=== PATIENT | male | born 1960 | race Caucasian/White ===

== ENCOUNTER → 2022-03-25 10:17 | Outpatient (REF) | payer OTHER, SELFPAY ==
--- NOTE | 2022-03-25 10:26 | CA_ITS ---
Acquisition Time: 2022-03-25 11:38:58 Total Exercise Time: 00:20:33 Test Indications: SPECIAL CA SCREENING EXAM FOR L Medications: Protocol: DOBUTAMINE Max HR: 136 BPM 85% of Pred: 159 BPM Max BP: 186/080 mmHG Max Work Load: 1.0 METS Pharmacological stress test with Dobutamine infusion per protocol to max of 40mcg/kg/min, briefly acheivng max heart rate of 83% MPHR, then heart rate dropping back into the mid to upper 70s % MPHR, (Pt made to kick his leg then july throughout infusion) without anginal symptoms, with isolated PACs and PVCs, with normotensive response to infusion, with nondiagnostic EKGs for ischemia due to suboptimal heart rate, without noted ischemic changes at peak heart rate. Echo images obtained by tech at rest, at 20mcg/kg/min and again at 40mcg/kg/ min. Definity contrast used. Heart rate noted to reduce quickly in a laying down position ( for echo images). Baseline EKG SB rate 50. He held carvedilol last evening and this am. Test reviewed with Dr Hollingsworth Referred By: Maxine Victoria Overread By: CELENA HARRIS
== END ==
LOC: HO.CARD 10:17
PROVIDERS: PCP Internal Medicine; Visit Provider Internal Medicine
DX: Z13.6 Encounter for screening for cardiovascular disorders (principal)
CPT/HCPCS: 93351; J1250; Q9957

== ENCOUNTER → 2022-04-10 09:07 | Outpatient (BNVA) | payer OTHER, SELFPAY | PROVIDERS: PCP Internal Medicine; Referring Provider Internal Medicine; Visit Provider Nurse Practitioner | DX: Z01.818 Encounter for other preprocedural examination (principal) | CPT/HCPCS: 99202 ==

== ENCOUNTER 2022-06-20 09:42 | Day surgery (SDC) | payer OTHER, SELFPAY ==
[2022-06-14 13:08] VITALS: BMI 26.7
[2022-06-20 10:17] VITALS: BP 120/51; PULSE 57; RESP 18; TEMP 36.2; O2SAT 98; BMI 26.4
--- NOTE | 2022-06-20 10:19 | P.CONAN_ITS ---
[facility] Active Problems Active Problems: All Active Problems (Updated 04/10/22 @ 09:20 by KRISTOFER Sharma) Pre-op examination (Acute) Thrombocytopenia (Acute) Lumbar degenerative disc disease (Acute) Psoriasis (Acute) Cholelithiasis (Acute) Past Medical History Medical History Alcoholic cirrhosis Aortic stenosis Cardiac murmur Chronic hepatitis C History of alcohol abuse Hypertension Liver cancer Smoker Surgical History Surgical History H/O colonoscopy History of ablation of neoplasm of liver History of appendectomy History of Problems with Anesthesia: No Social History Social History Alcohol intake: former Patient Tobacco Use Status: Current everyday Tobacco user Tobacco use type: Cigarette Cigarettes Per Day: 6 Years Smoked: 20 years Date Education Initiated: 06/20/22 Use of substances other than those prescribed or required for medical reasons: No Are you DNR?: No Advance Directives: No Advance Directives Information Provided: Yes Meds Allergies Allergy/AdvReac Type Severity Reaction Status Date / Time No Known Allergies Allergy Verified 04/10/22 09:13 Home Medications Medication Instructions Recorded Confirmed Last Taken Type carvedilol 6.25 mg tablet 6.25 mg PO BID 04/10/22 06/14/22 06/20/22 History Exam Exam Date and Time: June 20, 2022 1019 Height,Weight and Vital Signs: Height 5 ft 11 in Weight 87.09 kg Airway Mallampati Class: III TM Dist: >3cm Neck ROM: Full Loose/Missing/Broken Teeth: Yes and Upper Heart: RRR Lungs: CTA Assessment and Plan Assessment Anesthesia Assessment: Anesthesia Plan Discussed and Chart Reviewed Final Anesthetic Review History of Problems with Anesthesia: No NPO: Yes ASA Class: III Final Preanesthetic Review: Meds/Allgs Chart Reviewed, Consent Obtained/Reviewed and Anes Risks/Benef Reviewed Patient Risk: Intermediate Procedure Risk: Low Anesthetic Plan Anesthetic Plan: MAC: Disposition: Standard PACU
--- NOTE | 2022-06-20 12:17 | MHC.SHP ---
Pre-Procedural Eval Section A Date of Service: 06/20/22 Section B Chief Complaint: screening Details of Present Illness: 62 y.o M with PMH of HCV cirrhosis s/p SVR, psoriasis, who is here for a screening colo. Of note, states [facility] but has never gotten an EGD Relevant Family History (Specify if Yes): No Relevant Social History: None Present Medications: see Short Stay Collaborative assessment Medical History: Significant History (as above ) Allergies: Allergies Allergy/AdvReac Type Severity Reaction Status Date / Time No Known Allergies Allergy Verified 04/10/22 09:13 Review of Systems Review of Systems Comment: Ten point ROS negative except as above Exam Exam Comment: Gen appear: No acute distress HEENT: no icterus Chest: No overt resp distress Abd: soft, nontender, nondistended Psych: Stable affect, answering questions appropriately Neuro: A/Ox3 noted to move all extremities spontaneously Ext: multiple erythematous plaques on legs and arms Plan Diagnosis/Plan: Unchanged I have reviewed the history and physical and performed a pertinent physical examination on my patient. No changes have occurred unless specified. Time Spent With Patient Time: Total time managing care of this patient today ____ minutes.
--- NOTE | 2022-06-20 12:20 | P.OP_ITS ---
Operative Note Operative Note Date of Service: 06/20/22 Narrative: Procedure: Colonoscopy Indication: Screening Endoscopist: Zaynab Pena MD Anesthesia Provider: Dr Evon Oquendo Anesthesia type: MAC Instrument: Olympus [id number]-[id number] Consent: Indication, risks vs benefits, and alternatives were discussed with the patient who gave written informed consent to proceed. EKG, pulse, pulse oximetry and blood pressure were monitored throughout the procedure. Please see anesthesia flowsheet. Procedure: The patient was brought to the procedure room and placed in the left lateral decubitus position. IV medications were administered by the anesthesia provider in attendance. A digital rectal exam was performed which was normal. The colonoscope was then inserted through the anus and advanced through the colon to the cecum at 75 cm,and terminal ileum. Mucosa was carefully examined under high definition white light as the instrument was slowly withdrawn in a retrograde panoramic fashion. Retroflexion was performed in ascending colon and rectum. The procedure was not difficult. There were no immediate obvious complications. The quality of the prep was BBPS: 3+2+2 = adequate Withdrawal time 16 minutes. Limitations: No limitations. Findings: Mucosa: Normal to cecum and terminal ileum. Protruding lesions: * 1 sessile polyp of size 4 mm in ascending colon. Cold snare polypectomy was performed. The polyp was completely removed and retrieved. * 3 sessile polyp of size 4-7 mm in sigmoid colon. Cold snare polypectomy was performed. The polyps were completely removed and retrieved. * Medium internal hemorrhoids [without] stigmata of recent bleeding. Impression: 1. Normal colon and terminal ileum mucosa 2. Total of 4 polyps removed from ascending and sigmoid colon. 3. Internal hemorrhoids Recommendations: - Follow path results. - Repeat colonoscopy in 3 years if all polyps are adenomas. - Should also get records at office visits to ensure up to date on HCC and variceal screening.
[2022-06-20 12:23] VITALS: BP 87/47; PULSE 61; RESP 20; TEMP 37; O2SAT 98
[2022-06-20 12:28] VITALS: BP 86/47; PULSE 58; RESP 20; O2SAT 98
[2022-06-20 12:33] VITALS: BP 102/55; PULSE 61; RESP 18; O2SAT 98
[2022-06-20 12:48] VITALS: BP 100/61; PULSE 62; RESP 16; O2SAT 97
== END 2022-06-20 13:09 ==
PROVIDERS: PCP Internal Medicine; Visit Provider Internal Medicine
PROC: 0DJD8ZZ Inspection of Lower Intestinal Tract, Via Natural or Artificial Opening Endoscopic (ICD-10-PCS; CPT 45378; principal; 2022-06-20 11:10)
DX: Z12.11 Encounter for screening for malignant neoplasm of colon (principal); K63.5 Polyp of colon; K64.8 Other hemorrhoids; K70.30 Alcoholic cirrhosis of liver without ascites; B18.2 Chronic viral hepatitis C; Z85.05 Personal history of malignant neoplasm of liver; Z90.49 Acquired absence of other specified parts of digestive tract; I10 Essential (primary) hypertension; K80.20 Calculus of gallbladder without cholecystitis without obstruction; F17.210 Nicotine dependence, cigarettes, uncomplicated
CPT/HCPCS: 45385; 88305

== ENCOUNTER → 2022-07-05 10:06 | Outpatient (BNVA) | payer OTHER, SELFPAY | PROVIDERS: PCP Internal Medicine; Referring Provider Internal Medicine; Visit Provider Nurse Practitioner | DX: K63.5 Polyp of colon (principal); Z98.890 Other specified postprocedural states | CPT/HCPCS: 99212 ==

== ENCOUNTER → 2022-10-10 10:08 | Outpatient (REF) | payer OTHER, SELFPAY ==
--- NOTE | 2022-10-10 10:11 | CA_ITS ---
Acquisition Time: 2022-10-10 10:14:00 Total Exercise Time: 00:18:16 Test Indications: Screening for CAD Medications: SEE H CARVEDILOL Protocol: DOBUTAMINE Max HR: 126 BPM 79% of Pred: 159 BPM Max BP: 196/046 mmHG Max Work Load: 1.0 METS Pharmacological stress test with Dobutamine infusion per protocol, to max dose of 40mcg/kg/min briefly achieiving 77% MPHR then back down to 56% quickly in recovery , without anginal symptoms, with isolated PVCs and PACs, with normotensive response to infusion, without EKG changes. Echo images obtained by [employer] at rest and at 20mcg/kg/min and 40mcg/kg.min. Definity contrast used, Carvedilol was held x 3 doses. Test reviewed with Dr. Hollingsworth. Referred By: Tayo Ugalde Overread By: CELENA HARRIS
== END ==
LOC: HO.CARD 10:08
PROVIDERS: PCP Internal Medicine; Visit Provider Internal Medicine Gastroenterology
DX: K74.69 Other cirrhosis of liver (principal); R01.1 Cardiac murmur, unspecified
CPT/HCPCS: 93351; J1250; Q9957

== ENCOUNTER → 2022-10-29 08:21 | Outpatient (REF) | payer OTHER, SELFPAY ==
--- NOTE | ~2022-10-29 | NM_ITS ---
Myocardial perfusion study Indication: CAD to evaluate for myocardial ischemia Technique: The patient was brought in for a Lexiscan perfusion study on 10/29/2022. Patient performed low-level exercise and was injected 0.4 mg of Lexiscan intravenously. Within a minute of injection, 30 mCi of sestamibi was given intravenously. Images were obtained using the SPECT gamma camera interlaced with the gating device. Images were obtained in supine position. Resting perfusion study was performed on 10/30/2022. Patient was administered 30 mCi of sestamibi intravenously at rest. Images were then obtained in supine position. Images obtained with and without CT attenuation. Total DLP 127 mGy-cm. Images were processed with the software and compared side to side in short axis, horizontal long axis and vertical long axis views. Findings: The stress perfusion study showed non attenuated images show mildly reduced uptake in the basal inferior and apical wall of the LV myocardium. Remainder of the LV myocardium is normally perfused. Attenuation corrected images show mildly reduced uptake in the apex of the LV myocardium. The gated study shows normal LV systolic function with calculated LVEF of 63%. LV cavity is mildly dilated size. The gated study shows normal systolic wall thickening and contraction of segments. Resting study shows no change in perfusion pattern compared to stress perfusion study. Gating at rest reveals normal systolic wall motion with ejection fraction at 56%. The findings are consistent with no clear reversible defect suggestive of ischemia. Likely normal myocardial perfusion. NM/NM slava perf SPECT rest & str Impression: 1. Myocardial perfusion imaging study shows likely normal myocardial perfusion 2. Gated LVEF is 63% 3. Transient ischemic dilatation not present EKG is nondiagnostic for ischemia
--- NOTE | 2022-10-29 08:26 | CA_ITS ---
Acquisition Time: 2022-10-29 08:38:44 Total Exercise Time: 00:02:00 Test Indications: PREOP FOR LIVER TRANSPLANT Medications: Protocol: LEXISCAN Max HR: 086 BPM 54% of Pred: 159 BPM Max BP: 142/062 mmHG Max Work Load: 1.6 METS Pharmacological stress test with Lexiscan injection while walking slowly on the treadmill, without anginal symptoms, without arrhythmias, with normotensive response to injection, with nondiagnostic EKGs for ischemia. Nuclear images pending. Test reviewed with Dr. Peres. Referred By: Tayo Ugalde Overread By: CELENA HARRIS
== END ==
LOC: HO.CARD 08:21
PROVIDERS: PCP Internal Medicine; Visit Provider Internal Medicine Gastroenterology
DX: C22.0 Liver cell carcinoma (principal)
CPT/HCPCS: 78452; 93017; A9500; J0280; J2785

== ENCOUNTER → 2023-06-04 09:54 | Outpatient (REF) | payer OTHER, SELFPAY ==
--- NOTE | 2023-06-04 10:12 | CA_ITS ---
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 Normal LV systolic and diastolic function 2. Mildly dilated left atrium 3. Evidence of PFO with agitated saline with at least moderate shunt with Valsalva 4. Possible bicuspid aortic valve with mild aortic stenosis and [id number] aortic regurgitation 5. Normal RV systolic pressure 6. Mildly dilated ascending aorta at 3.7 cm 7. No pericardial effusion Findings Left Ventricle Normal left ventricular size, thickness, and systolic function. The visually estimated ejection fraction is between 60-65%. Spectral Doppler is indicative of an impaired relaxation filling pattern. Peak GLS is -18.3%, within normal limits. Right Ventricle Mildly increased right ventricular cavity size. There is normal right ventricular systolic function. Atria The left atrium is mildly dilated. Contrast study for right to left shunting is mildly positive. Contrast study for right to left shunting is moderately positive with Valsalva maneuver. There is evidence of a patent foramen ovale with left to right shunting. The right atrium is likely dilated. Aortic Valve There is mild aortic valve stenosis. There is mild to moderate aortic valve regurgitation. possible bicuspid aortic valve with moderate thickening and mild calcification Mitral Valve Normal mitral valve structure and function. There is trace mitral valve regurgitation. There is no mitral valve stenosis. Pulmonic Valve The pulmonic valve is likely normal. There is trace pulmonic valve regurgitation. Tricuspid Valve Normal tricuspid valve structure. There is trace tricuspid valve regurgitation. The right ventricular systolic pressure is normal. The right ventricular systolic pressure is 14 mmHg. Normal right atrial pressure. There is no evidence of pulmonary hypertension. Great Vessels The pulmonary artery was not well visualized. There is mild dilatation of the ascending aorta measuring 3.70 cm. Venous The inferior vena cava is normal in size and collapses greater than 50% with inspiration. Pericardium/Pleural There is no evidence of pericardial effusion. Prior Study Comparison No prior study available for comparison. Measurements 2D Linear Measurements IVSd: 1.14 0.6-0.9/0.6-1.0 cm LVIDd: 5.77 3.9-5.3/4.2-5.9 cm LVIDd Index: 2.75 2.4-3.2/2.2-3.1 cm/m2 LVIDs: 3.10 2.0-3.6 cm LVPWd: 0.95 0.7-1.1 cm LA Diam: 4.00 2.7-3.8/3.0-4.0 cm LAIDs Index: 1.90 1.5-2.3 cm/m2 LV Mass: 304.26 67-162/88-224 g LV Mass Index: 144.89 43-95/49-115 g/m2 LVOT Diam: 2.50 3.0+(-)1.3 cm 2D Systolic Function EF 4C: 62.40 >55% EF 2C: 63.60 >55% EF BiP: 63.20 >55% Mitral Valve MV Pk E: 0.91 MV PK A: 0.60 MV Decel Time: 220.00 E/A: 1.50 E'Lateral: 8.38 E'Medial: 5.77 E/E' Med: 15.70 E/E' Lat: 10.80 PHT: 64.00 MVA PHT: 3.44 Decel [place]: 4.13 Aortic Valve AoV Pk Jamel: 3.39 AoV Mn Jamel: 2.39 AoV VTI: 0.72 AoV Pk Grad: 46.00 Aov Mn Grad: 26.00 DESHAWN Cont.VTI: 1.88 AI Pk Jamel: 4.13 AI VTI: 2.27 LVOT LVOT Pk Jamel: 1.11 LVOT Mn Jamel: 0.82 LVOT VTI: 0.28 LVOT Pk Grad: 5.00 LVOT Mn Grad: 3.00 LVOT Diam: 2.50 LVOT Area: 4.91 Diastolic Function MV Pk E: 0.91 MV Pk A: 0.60 E/A: 1.50 E'Medial: 5.77 E/E' Med: 15.70 E' Laterial: 8.38 E/E' Lat: 10.80 Right Ventricle TAPSE (mm): 27.00 TVS' Jamel: 15.10 Tricuspid Valve TR Pk Jamel: 1.68 TR Pk Grad: 11.00 RA Press: 3.00 RVSP: 14.00 Great Vessels Aorta Sinus of Valsalva: 3.91 2.0-3.5 cm Ao Asc: 3.70 2.1-3.4 cm Ao Arch: 3.40 Updated in Other Vendor System with Status of Final Andrey Hollingsworth MD electronically signed on 06/04/2023 1:40:28 PM with status of Final
== END ==
LOC: HO.CARD 09:54
PROVIDERS: PCP Internal Medicine; Visit Provider Internal Medicine Gastroenterology
DX: K74.60 Unspecified cirrhosis of liver (principal)
CPT/HCPCS: 93306; 93356

== ENCOUNTER → 2023-06-04 10:12 | Outpatient (BNV) | payer OTHER, SELFPAY | PROVIDERS: PCP Internal Medicine; Visit Provider Internal Medicine Cardiovascular Disease | DX: I35.2 Nonrheumatic aortic (valve) stenosis with insufficiency (principal) | CPT/HCPCS: 93306 ==

== ENCOUNTER 2023-06-20 14:49 | Emergency (ER) | payer OTHER, SELFPAY ==
--- NOTE | ~2023-06-20 | US_ITS ---
EXAMINATION: US ABDOMEN LIMITED CLINICAL INFORMATION: Right upper quadrant pain. History of liver cancer.. COMPARISON: Ultrasound abdomen 12/24/2012 TECHNIQUE: Real-time imaging of the right upper quadrant abdominal viscera. FINDINGS: PANCREAS: The head and the body a pancreas is heterogeneous in echotexture. The tail is obscured by overlying gas. LIVER: Normal. The liver is normal in size. The liver contour is normal. Parenchymal echogenicity is coarse. There is a echogenic lesion same as hepatic parenchyma echogenicity measuring 3.08 x 3.13 x 3.36 cm in the right hepatic lobe. No additional lesions seen.. There is no intrahepatic biliary duct dilatation seen. GALLBLADDER: There are small echogenic mobile gallstones with acoustic shadowing. Gallbladder wall thickness measures 0.4 cm. No tenderness in the right upper quadrant by ultrasound probe. COMMON BILE DUCT: Normal in caliber measuring 0.4 cm in diameter. RIGHT KIDNEY: Normal. No hydronephrosis. No renal calculi or focal parenchymal lesions. The kidney measures 11.7 cm in maximum dimension. FREE FLUID: None. US/US abdomen limited IMPRESSION: Heterogeneous pancreas but no focal lesion seen. Small right hepatic lobe echogenic lesion. It is new since the previous exam 12/24/2012. Recommend CT liver with and without contrast. Gallstones with mild wall thickening but no pericholecystic fluid collection. There is no tenderness in right upper quadrant by ultrasound probe.
--- NOTE | ~2023-06-20 | CT_ITS ---
EXAMINATION: CT ABDOMEN AND PELVIS WITH CONTRAST CLINICAL INFORMATION: Abdominal pain. COMPARISON: None available. TECHNIQUE: Multidetector volumetric images were obtained from the superior aspect of the liver through the pubic symphysis following administration 85 mL of Omnipaque 350 intravenous contrast. Sagittal and coronal reformatted images were obtained on the technologist's workstation. Oral contrast: No This CT examination was performed using dose optimization techniques as appropriate, variously including the following: *Automated exposure control *Adjustment of mA and/or kV according to patient size (this includes techniques or standardized protocols for targeted exams where dose is matched to indication/reason for exam; i.e. extremities or head) *Use of iterative reconstruction technique DLP: 648 mGy-cm FINDINGS: LUNG BASES: There is right middle lobe atelectasis or scarring. LIVER, GALLBLADDER, AND BILIARY TREE: The liver is relatively small and irregular in contour. There is a heterogeneous area of hypodensity posterior right lobe the liver measuring 6.8 cm. A single 1.3 cm gallstone is noted. PANCREAS: Unremarkable. SPLEEN: The spleen is enlarged measuring up to 19 cm. ADRENAL GLANDS: Unremarkable. KIDNEYS AND URETERS: The kidneys are normal in size, shape, and attenuation. No hydronephrosis, hydroureter, or calculi seen. No perinephric stranding. BLADDER: There is mild urinary bladder wall thickening. GASTROINTESTINAL TRACT: The small and large bowel are unremarkable. The appendix is not seen. ABDOMINAL WALL: There are small umbilical and supraumbilical hernias containing fat. The supraumbilical hernia contains a small portion of small bowel without associated bowel dilatation. LYMPH NODES: Normal. VASCULAR: There is mild atherosclerotic plaque of the abdominal aorta. PELVIC VISCERA: There is a small amount of pelvic ascites OSSEOUS STRUCTURES: There is grade 1 anterolisthesis L5 over S1 with bilateral L5 spondylolysis and moderate L5-S1 disc degenerative change. CT/CT abdomen pelvis w IV con IMPRESSION: 1. Cirrhotic liver with splenomegaly. Heterogeneous area of hypodensity in the posterior right lobe the liver measuring 6.8 cm. This does not have the typical appearance of a benign hepatic lesion and further evaluation with enhanced MRI is recommended. 2. Cholelithiasis without evidence of cholecystitis. 3. Small umbilical and supraumbilical hernias containing fat. The supraumbilical hernia contains a small portion of small bowel without associated bowel dilatation. Fleischner guidelines were followed.
[2023-06-20 14:59] VITALS: BP 124/93; PULSE 86; RESP 18; TEMP 37; O2SAT 98; BMI 29.1
--- NOTE | 2023-06-20 15:00 | ED_ITS ---
HPI - Abdominal Pain General Chief Complaint: Abdominal Pain Stated Complaint: severe stomach pain Time Seen by Provider: 06/20/23 20:53 Source: patient and family Mode of arrival: ambulatory History of Present Illness HPI narrative: 63M with known history of lung ca and hepatic ca and currently on the transplant list. He gets majority of care through [facility]. He has recently gone through TACE procedure on his liver, lung bx, and presents today with lower abdominal discomfort with nausea Related Data Home Medications Medication Instructions Recorded Confirmed carvedilol 6.25 mg tablet 6.25 mg PO BID 04/10/22 06/14/22 Allergies Allergy/AdvReac Type Severity Reaction Status Date / Time No Known Allergies Allergy Verified 06/20/23 15:03 Review of Systems Review of Systems Pertinent positives and negatives as stated in HPI [facility] Past Medical History Medical History (Updated 06/21/23 @ 00:46 by Evon Pruett MD) History of alcohol abuse Liver cancer Smoker Cardiac murmur Aortic stenosis Hypertension Chronic hepatitis C Alcoholic cirrhosis Surgical History (Updated 07/05/22 @ 10:14 by Ford Duarte [facility]) History of appendectomy H/O colonoscopy History of ablation of neoplasm of liver Social History Social History Alcohol intake: former Patient Tobacco Use Status: Current everyday Tobacco user Tobacco use type: Cigarette Cigarettes Per Day: 6 Years Smoked: 20 years Advance Directives: No Advance Directives Information Provided: No Physical Exam ED Vital Signs: Vital Signs - 24 hr 06/20/23 14:59 06/20/23 20:42 06/20/23 23:31 Temperature 98.6 F 98.1 F 98.2 F Pulse Rate 86 74 75 Respiratory Rate 18 18 17 Blood Pressure 124/93 H 138/76 126/63 Pulse Oximetry 98 98 98 Oxygen Delivery Method Room Air Room Air BMI result Body Mass Index 29.1 VITAL SIGNS: Reviewed. GENERAL: Well developed, well nourished, in no acute distress. HEAD: Normocephalic/atraumatic EYES: PERRLA, EOMI, scleral icterus EARS: Ext canals without abnormality NOSE: Nares patent bilateral OROPHARYNX: no oral lesions noted, posterior pharynx clear NECK: Supple, no adenopathy LUNGS: Normal breath sounds. No adventitious sounds or accessory muscle use. SpO2<98> CARDIOVASCULAR: Regular rate and rhythm without noted murmurs ABDOMEN: Soft, non-tender, non-distended with bowel sounds. MUSCULOSKELETAL: No tenderness, deformities, or effusions noted on gross inspection. EXTREMITIES: No cyanosis, clubbing or edema. SKIN: Inspection of the skin reveals patchy psoriasis over extremities, scalp, jaundice NEUROLOGIC: Alert and oriented x 4. Strength and sensation to light touch were grossly intact x 4. Course Course Course Narrative: This is an RME: Additional HPI, ROS, PE not included below will be deferred to primary provider. Patient is a 63-year-old male who presents emergency department for evaluation of Left upper quadrant abdominal pain with onset 3 days ago after eating dinner. Pain has been intermittent. Associated nausea. reports pain is new ant not baseline for him. has Liver CA, awaiting transplant, Receives oncology care at [facility] in [facility], chemo, recent TACE procedure with right femoral artery angio-seal. Plan: Labs, UA, ultrasound Medical Decision Making Medical Decision Making MDM Narrative: 63-year-old male with history and clinical presentation, DDX: cholecystitis, pancreatitis, obstruction, s/p appendectomy. With the time of my examination patient has had complete resolution of his symptoms and his abdominal exam is benign. I reviewed all investigations for which there are no comparison studies available. Hematologic indices demonstrate a leukopenia with a slight thrombocytopenia and a normocytic anemia that I suspect is anemia of chronic disease as patient has no reports of acute bleeding. Chemistry indices do not demonstrate an JAVIER and liver enzymes are consistent with underlying liver CA and when I had asked the patient directly regarding the color of his skin he reports me that the skin color is consistent for him, there is no alkaline phosphatase to suggest a biliary obstruction there is an elevated lipase without clinical findings of pancreatitis and patient continues to be asymptomatic. Urinalysis is negative for UTI or hematuria. Abdominal ultrasound demonstrates a heterogeneous pancreas but no focal lesion and although gallstones with mild wall thickening of the gallbladder there is no pericholecystic fluid and no ultrasound Ceballos's. CT scan consistent with cirrhotic liver and splenomegaly and reports hypodensity in the posterior right lobe of 6.8 cm. There is evidence of cholelithiasis without cholecystitis as reported in the ultrasound. There are nonobstructive umbilical hernias. My interpretation is patient was experiencing abdominal discomfort of unclear etiology, there are no findings to suggest obstruction, cholecystitis, diverticulitis and clinically patient is negative for pancreatitis. I suspect that the abnormal lab work that has been obtained is consistent with his baseline lab work but he is provided with strict return precautions. He is also strongly encouraged to follow-up with his primary care doctor on Friday morning. Differential Diagnosis Differential Diagnoses: The differential diagnosis associated with the presentation includes Please see the discussion above Admission/Observation Consideration of admission/observation: Escalation of care including admission/observation considered Please see the discussion above Lab Data MDM Lab Attestation statement: I reviewed the patient's lab results. Please see the discussion above 06/20/23 15:22 06/20/23 15:22 Labs: Lab Results 06/20/23 06/20/23 Range/Units 15:22 20:49 WBC 4.6 L (4.8-10.8) X10*3/uL RBC 3.73 L (4.60-5.80) X10*6/uL Hgb 10.9 L (14.0-18.0) g/dl Hct 32.8 L (42.0-52.0) % MCV 87.9 (80.0-98.0) fL MCH 29.2 (27.0-33.0) pg MCHC 33.2 (31.0-36.0) g/dl RDW 15.3 (11.0-16.0) % Plt Count 153 L (160-400) X10*3/uL MPV 10.7 (9.4-12.4) fL Immature Gran % (Auto) 0.6 H (0.0-0.4) % Neut % (Auto) 63.2 (45-73) % Lymph % (Auto) 18.1 L (20-40) % Bond % (Auto) 9.9 (2-11) % Eos % (Auto) 7.6 H (0-4) % Baso % (Auto) 0.6 (0-2) % Lymph # (Auto) 0.8 L (1.2-4.9) X10*3/uL Bond # (Auto) 0.5 (0.1-1.2) X10*3/uL Eos # (Auto) 0.4 (0.0-0.4) X10*3/uL Baso # (Auto) 0.0 (0.0-0.2) X10*3/uL Abs Immat Gran (auto) 0.03 (0.00-0.03) X10*3/uL Absolute Neuts (auto) 2.9 (2.0-8.3) x10*3/uL Absolute Nucleated RBC 0.000 (0.0-0.012) X10*3/uL Nucleated RBC % (auto) 0.0 (0.0-0.2) /100WBC Sodium 141 (135-145) mmol/L Potassium 4.3 (3.3-5.1) mmol/L Chloride 109 H (96-108) mmol/L Carbon Dioxide 26 (22-29) mmol/L Anion Gap 10 L (12-20) BUN 13 (9-16) mg/dL Creatinine 0.72 (0.5-1.4) mg/dL Estim Creat Clear Calc 114.0 Estimated GFR > 60 Random Glucose 88 (60-115) mg/dL Calcium 8.7 (8.4-10.2) mg/dL Total Bilirubin 5.7 H (0.0-1.0) mg/dL AST 66 H (5-37) U/L ALT 82 H (0-40) U/L Alkaline Phosphatase 108 (39-117) U/L Total Protein 7.4 (6.5-8.0) g/dL Albumin 3.5 (3.5-5.0) g/dL Lipase 273 H (8-78) U/L Urine Color Dark Yellow Urine Appearance Clear Urine pH 6.0 (5.0-9.0) Ur Specific [place] 1.025 (1.005-1.025) Urine Protein Negative (Neg-Trace) mg/dL Urine Glucose (UA) Negative (Negative) mg/dL Urine Ketones Negative (Negative) mg/dL Urine Blood Negative (Negative) Urine Nitrite Negative (Negative) Ur Leukocyte Esterase Negative (Negative) Radiology Impression Discussion of test interpretation with radiology: I have reviewed the radiologist's reading. Radiologist Impression: Please see the discussion above External Record Review External record reviewed: Office record Medications Administered Discontinued Medications Generic Name Dose Route Start Last Admin Trade Name Freq PRN Reason Stop Dose Admin Iohexol 85 ml 06/20/23 23:25 06/20/23 23:26 Iohexol 350 Mg/Ml 100 Ml Infus..Btl IV 06/20/23 23:26 85 ml ONCE ONE Administration Critical Care Time Critical Care Time Critical Care Time: Yes Total Critical Care Time: 60 Attestation: I personally attest to this time spent taking care of the patient. Discharge Plan Discharge Clinical Impression: Abdominal discomfort, Elevated LFTs, Cholelithiasis Patient Disposition: Home, Self-Care Instructions: Gallstones (ED), Abdominal Pain (ED) Additional Instructions: 1. Reanudar todos los medicamentos caseros seg?n lo recetado. 2. Visita de seguimiento con whitt m?dico de atenci?n primaria el lunes por la ma?jacqueline. 3. Si nota alg?n empeoramiento o recurrencia del dolor abdominal, regrese a la ethan de emergencias. 1. Resume all home medications as prescribed. 2. Follow-up with your primary care doctor on Friday morning. 3. If you have any worsening or recurrence of the abdominal pain please return to the emergency room. Prescriptions: No Action carvedilol 6.25 mg tablet 6.25 mg PO BID Rx Instructions: must administer with a meal/food Referrals: Maxine Victoria MD [Primary Care Provider] - Print Language: Kinyarwanda
[2023-06-20 15:26] LABS: MANUAL DIFF FLAG NO
[2023-06-20 15:28] LABS: Basophils Percent Auto 0.6 % (0-2); Eosinophils Absolute Auto 0.4 X10*3/uL (0.0-0.4); Eosinophils Percent Auto 7.6 % (0-4); Hematocrit 32.8 % (42.0-52.0); Hemoglobin 10.9 g/dl (14.0-18.0); Imm Gran Abs Auto 0.03 X10*3/uL (0.00-0.03); Imm Gran Pct Auto 0.6 % (0.0-0.4); Lymphocytes Absolute Auto 0.8 X10*3/uL (1.2-4.9); Lymphocytes Percent Auto 18.1 % (20-40); Mean Corpuscular HGB Conc 33.2 g/dl (31.0-36.0); Mean Corpuscular Hemoglobin 29.2 pg (27.0-33.0); Mean Corpuscular Volume 87.9 fL (80.0-98.0); Mean Platelet Volume 10.7 fL (9.4-12.4); Monocytes Absolute Auto 0.5 X10*3/uL (0.1-1.2); Monocytes Percent Auto 9.9 % (2-11); Neutrophils Absolute Auto 2.9 x10*3/uL (2.0-8.3); Neutrophils Percent Auto 63.2 % (45-73); Platelet Count 153 X10*3/uL (160-400); Red Blood Count 3.73 X10*6/uL (4.60-5.80); Red Cell Distribution Width 15.3 % (11.0-16.0); White Blood Count 4.6 X10*3/uL (4.8-10.8)
[2023-06-20 15:43] LABS: Alanine Aminotransferase 82 U/L (0-40); Albumin Level 3.5 g/dL (3.5-5.0); Alkaline Phosphatase 108 U/L (39-117); Anion Gap 10 (12-20); Aspartate Amino Transferase 66 U/L (5-37); Bilirubin Total 5.7 mg/dL (0.0-1.0); Blood Urea Nitrogen 13 mg/dL (9-16); Calcium 8.7 mg/dL (8.4-10.2); Carbon Dioxide 26 mmol/L (22-29); Chloride 109 mmol/L (96-108); Estimated Glomerular Filt Rate > 60; Glucose Random 88 mg/dL (60-115); Potassium 4.3 mmol/L (3.3-5.1); Sodium 141 mmol/L (135-145); Total Protein 7.4 g/dL (6.5-8.0)
[2023-06-20 15:55] LABS: Lipase 273 U/L (8-78)
[2023-06-20 20:42] VITALS: BP 138/76; PULSE 74; RESP 18; TEMP 36.7; O2SAT 98
--- NOTE | 2023-06-20 20:54 | PC.NURSE ---
Pt reporting intermittent lower abdominal pain for a couple days. since liver biopsy. U/a sent. Plan of care ongoing.
[2023-06-20 20:58] LABS: Appearance Urine Clear; Color Urine Dark Yellow; Glucose Urine UA Negative (Negative); Leukocyte Esterase Urine Negative (Negative); Nitrite Urine Negative (Negative); Specific Gravity - Urine 1.025 (1.005-1.025); Urine Blood Negative (Negative); Urine Ketones Negative (Negative); Urine Protein Negative (Neg-Trace)
--- NOTE | 2023-06-20 23:15 | PC.NURSE ---
IV placed #20 R-AC
[2023-06-20] MEDS: iohexoL 350 MG/ML 100 ML INFUS..BTL 85 ML IV (23:26)
[2023-06-20 23:31] VITALS: BP 126/63; PULSE 75; RESP 17; TEMP 36.8; O2SAT 98
[2023-06-21 01:00] VITALS: BP 130/76; PULSE 78; RESP 16; TEMP 36.8; O2SAT 95
== END 2023-06-21 01:10 | disposition home or self-care (01) ==
PROVIDERS: Nurse Practitioner Family; Emergency Provider Student in an Organized Health Care Education/Training Program; PCP Internal Medicine
DX: K80.20 Calculus of gallbladder without cholecystitis without obstruction (principal); R79.89 Other specified abnormal findings of blood chemistry; R10.9 Unspecified abdominal pain
CPT/HCPCS: 36415; 74177; 76705; 80053; 81003; 83690; 85025; 99284; Q9967

== ENCOUNTER 2023-12-09 08:47 | Emergency (ER) | payer BC, SELFPAY ==
[2023-12-09] VITALS (7 sets, daily range): BP systolic 142–159; BP diastolic 72–87; PULSE 66–88; RESP 14–23; TEMP 36.7–36.9; O2SAT 98–100; BMI 25.0
[2023-12-09 09:18] LABS: Basophils Percent Auto 0.6 % (0-2); Eosinophils Absolute Auto 0.2 X10*3/uL (0.0-0.4); Eosinophils Percent Auto 12.2 % (0-4); Hematocrit 23.1 % (42.0-52.0); Hemoglobin 7.7 g/dl (14.0-18.0); Imm Gran Abs Auto 0.02 X10*3/uL (0.00-0.03); Imm Gran Pct Auto 1.2 % (0.0-0.4); Lymphocytes Absolute Auto 0.4 X10*3/uL (1.2-4.9); Lymphocytes Percent Auto 26.8 % (20-40); MANUAL DIFF FLAG SCAN; Mean Corpuscular HGB Conc 33.3 g/dl (31.0-36.0); Mean Corpuscular Hemoglobin 31.6 pg (27.0-33.0); Mean Corpuscular Volume 94.7 fL (80.0-98.0); Mean Platelet Volume 11.3 fL (9.4-12.4); Monocytes Absolute Auto 0.3 X10*3/uL (0.1-1.2); Monocytes Percent Auto 20.7 % (2-11); Neutrophils Absolute Auto 0.6 x10*3/uL (2.0-8.3); Neutrophils Percent Auto 38.5 % (45-73); Platelet Count 140 X10*3/uL (160-400); Red Blood Count 2.44 X10*6/uL (4.60-5.80); Red Cell Distribution Width 17.6 % (11.0-16.0); SCAN SMEAR FLAG 1
[2023-12-09 09:24] LABS: Prothrombin Time 12.7 SEC (11.1-13.3)
[2023-12-09 09:32] LABS: Alanine Aminotransferase 12 U/L (0-40); Albumin Level 3.8 g/dL (3.5-5.0); Alkaline Phosphatase 51 U/L (39-117); Anion Gap 11 (12-20); Aspartate Amino Transferase 16 U/L (5-37); Bilirubin Direct 0.2 mg/dL (0.0-0.5); Bilirubin Total 0.6 mg/dL (0.0-1.0); Blood Urea Nitrogen 33 mg/dL (9-16); Calcium 9.4 mg/dL (8.4-10.2); Carbon Dioxide 21 mmol/L (22-29); Chloride 112 mmol/L (96-108); Creatinine Clr Calc Pharmacy 65.3; Estimated Glomerular Filt Rate > 60; Glucose Random 159 mg/dL (60-115); Potassium 4.4 mmol/L (3.3-5.1); Sodium 140 mmol/L (135-145); Total Protein 6.8 g/dL (6.5-8.0)
[2023-12-09 09:42] LABS: White Blood Count 1.6 X10*3/uL (4.8-10.8)
--- NOTE | 2023-12-09 10:00 | PC.NURSE ---
20# placed in the LAC
[2023-12-09 10:02] LABS: SLIDE REVIEW VERIFIED
[2023-12-09 11:15] LABS: Appearance Urine Clear; Color Urine Yellow; Glucose Urine UA Negative (Negative); Leukocyte Esterase Urine Negative (Negative); Nitrite Urine Negative (Negative); Specific Gravity - Urine 1.015 (1.005-1.025); Urine Blood Negative (Negative); Urine Ketones Negative (Negative); Urine Protein Negative (Neg-Trace)
--- NOTE | 2023-12-09 11:44 | ED_ITS ---
HPI - Recheck/Abnormal Lab/Rx General Chief Complaint: Recheck/Abnormal Lab/Rx Stated Complaint: Sent by PCP for transfusion Time Seen by Provider: 12/09/23 10:26 Source: patient Limitations: no limitations History of Present Illness ED Provider: Maria Eugenia Jacobs PA-C HPI narrative: 63-year-old male with history of colon cancer, cirrhosis now status post transplant August 05 of this year at [facility] presents with lab abnormalities. Patient was called by his transplant specialist this morning, he was told to come to the hospital for blood transfusion. Patient has required transfusions in the past. Patient denies lightheadedness, dizziness, melena or bright red blood per rectum. Denies abdominal pain or fever. Related Data Home Medications ?Medication ?Instructions ?Recorded ?Confirmed carvedilol 6.25 mg tablet 6.25 mg PO BID 04/10/22 06/14/22 acetaminophen 500 mg tablet 500 mg PO Q6H PRN Pain 12/09/23 (Tylenol Extra Strength) magnesium oxide 1,200 mg PO BID@1400,2000 12/09/23 magnesium oxide 800 mg PO DAILY 12/09/23 pantoprazole 40 mg tablet,delayed 40 mg PO DAILY@0630 12/09/23 release (Protonix) sennosides 8.6 mg-docusate sodium 2 tab-cap PO DAILY PRN Constipation 12/09/23 50 mg capsule (Senna Plus) sulfamethoxazole 400 1 tab PO DAILY 12/09/23 mg-trimethoprim 80 mg tablet (Bactrim) tacrolimus 1 mg capsule, 2 mg PO Q12H 12/09/23 immediate-release (Prograf) urea 15 gram/scoop oral powder 15 g PO Q72H 12/09/23 ursodiol 300 mg capsule 300 mg PO BID 12/09/23 Allergies Allergy/AdvReac Type Severity Reaction Status Date / Time No Known Allergies Allergy Verified 12/09/23 09:01 Review of Systems 2 Review of Systems: Yes all other systems are reviewed and are negative Constitutional: Constitutional: Denies fatigue and Denies fever(s) Cardiovascular: Cardiovascular: Denies chest pain and Denies dyspnea Respiratory: Respiratory: Denies dyspnea Gastrointestinal: Gastrointestinal: Denies abdominal pain, Denies melena and Denies hematochezia Endocrine: Endocrine: Denies fatigue PMFSH Past Medical History Attestation statement: The following information was validated with the patient. Medical History (Updated 12/09/23 @ 15:26 by DANA Lanier) History of alcohol abuse Liver cancer Smoker Cardiac murmur Aortic stenosis Hypertension Chronic hepatitis C Alcoholic cirrhosis Surgical History (Updated 07/05/22 @ 10:14 by Ford Duarte [facility]) History of appendectomy H/O colonoscopy History of ablation of neoplasm of liver Social History Social History Alcohol intake: former Patient Tobacco Use Status: Current everyday Tobacco user Tobacco use type: Cigarette Cigarettes Per Day: 6 Years Smoked: 20 years Advance Directives: No Advance Directives Information Provided: Yes Physical Exam 2 Vital Signs: Vital Signs: Last Vital Signs Temp 98.2 F 12/09/23 14:35 Pulse 69 12/09/23 14:35 Resp 18 12/09/23 14:35 BP 153/85 H 12/09/23 14:35 Pulse Ox 100 12/09/23 13:15 O2 Del Method Room Air 12/09/23 13:15 BMI result Body Mass Index 25.0 Const: Other: Alert well in appearance Orientation/consciousness: patient oriented x3 Resp: Other: Nonlabored respiration Cardio: Other: Normal peripheral perfusion GI: Other: Abdomen is soft, nondistended nontender Skin: Other: Warm dry no rash Neuro: General: patient oriented x3, no focal motor deficits and CN's II-XI intact bilaterally Psych: Other: Calm cooperative Course Course Course Narrative: 63-year-old male with history of colon cancer, cirrhosis now status post transplant August 05 of this year at [facility] presents with lab abnormalities. Patient was called by his transplant specialist this morning, he was told to come to the hospital for blood transfusion. Patient has required transfusions in the past. Patient denies lightheadedness, dizziness, melena or bright red blood per rectum. Denies abdominal pain or fever. Problem: Transplant patient, anemia History: Per patient I have considered the following differential diagnoses: Upper GI bleed, lower GI bleed, anemia of chronic disease Plan: Screening labs obtained from triage he is pancytopenic, his H&H are currently 7.7 and 23.1 respectively. Coagulation studies already obtained, we will order blood products and consent the patient for transfusion I have independently reviewed the following tests: Labs: No electrolyte abnormality, pancytopenic, H and H as previously stated Reevaluation(s) Reevaluation #1: I tiger text Dr. Camara, 1 of the hospitalists, they indicated that the patient does not require admission, that the patient can be transfused and discharged home Time: 15:23 Medications Administered Discontinued Medications Generic Name Dose Route Start Last Admin Trade Name Freq PRN Reason Stop Dose Admin Sodium Chloride 100 mls @ 100 mls/hr 12/09/23 13:36 12/09/23 14:26 Ns IV 12/09/23 14:35 100 mls/hr ONCE ONE Administration Medical Decision Making Lab Data 12/09/23 09:10 12/09/23 09:10 Labs: Lab Results 12/09/23 12/09/23 Range/Units 09:10 11:08 WBC 1.6 L (4.8-10.8) X10*3/uL RBC 2.44 L D (4.60-5.80) X10*6/uL Hgb 7.7 L D (14.0-18.0) g/dl Hct 23.1 L D (42.0-52.0) % MCV 94.7 (80.0-98.0) fL MCH 31.6 (27.0-33.0) pg MCHC 33.3 (31.0-36.0) g/dl RDW 17.6 H (11.0-16.0) % Plt Count 140 L (160-400) X10*3/uL MPV 11.3 (9.4-12.4) fL Immature Gran % (Auto) 1.2 H (0.0-0.4) % Neut % (Auto) 38.5 L (45-73) % Lymph % (Auto) 26.8 (20-40) % [place] % (Auto) 20.7 H (2-11) % Eos % (Auto) 12.2 H (0-4) % Baso % (Auto) 0.6 (0-2) % Lymph # (Auto) 0.4 L (1.2-4.9) X10*3/uL [place] # (Auto) 0.3 (0.1-1.2) X10*3/uL Eos # (Auto) 0.2 (0.0-0.4) X10*3/uL Baso # (Auto) 0.0 (0.0-0.2) X10*3/uL Abs Immat Gran (auto) 0.02 (0.00-0.03) X10*3/uL Absolute Neuts (auto) 0.6 L (2.0-8.3) x10*3/uL Absolute Nucleated RBC 0.000 (0.0-0.012) X10*3/uL Nucleated RBC % (auto) 0.0 (0.0-0.2) /100WBC Smear Tech's Comments VERIFIED PT 12.7 (11.1-13.3) SEC INR 1.0 (0.9-1.1) APTT 32.0 (26.0-36.8) SEC Sodium 140 (135-145) mmol/L Potassium 4.4 (3.3-5.1) mmol/L Chloride 112 H (96-108) mmol/L Carbon Dioxide 21 L (22-29) mmol/L Anion Gap 11 L (12-20) BUN 33 H (9-16) mg/dL Creatinine 1.21 (0.5-1.4) mg/dL Estim Creat Clear Calc 65.3 Estimated GFR > 60 Random Glucose 159 H (60-115) mg/dL Calcium 9.4 D (8.4-10.2) mg/dL Total Bilirubin 0.6 (0.0-1.0) mg/dL Direct Bilirubin 0.2 (0.0-0.5) mg/dL AST 16 (5-37) U/L ALT 12 (0-40) U/L Alkaline Phosphatase 51 (39-117) U/L Total Protein 6.8 (6.5-8.0) g/dL Albumin 3.8 (3.5-5.0) g/dL Urine Color Yellow Urine Appearance Clear Urine pH 8.0 (5.0-9.0) Ur Specific [place] 1.015 (1.005-1.025) Urine Protein Negative (Neg-Trace) mg/dL Urine Glucose (UA) Negative (Negative) mg/dL Urine Ketones Negative (Negative) mg/dL Urine Blood Negative (Negative) Urine Nitrite Negative (Negative) Ur Leukocyte Esterase Negative (Negative) Blood Type O Positive Antibody Screen NEGATIVE Crossmatch See Detail Discharge Plan Discharge Clinical Impression: Anemia Patient Disposition: Home, Self-Care Instructions: Anemia (ED) Additional Instructions: You were transfused, you received 1 unit of red blood cells. You need to follow up with your primary care provider within 2-3 days to have a repeat cell blood count, call today to make an appointment Prescriptions: No Action sulfamethoxazole-trimethoprim [Bactrim] 400-80 mg Tablet 1 tab PO DAILY acetaminophen [Tylenol Extra Strength] 500 mg Tablet 500 mg PO Q6H PRN (Reason: Pain) pantoprazole [Protonix] 40 mg Tablet,Delayed Release (Dr/Ec) 40 mg PO DAILY@0630 ursodiol 300 mg Capsule 300 mg PO BID tacrolimus [Prograf] 1 mg Capsule 2 mg PO Q12H magnesium oxide 400 mg magnesium Tablet 800 mg PO DAILY magnesium oxide 400 mg magnesium Tablet 1,200 mg PO BID@1400,2000 Senna Plus 8.6-50 mg Capsule 2 tab-cap PO DAILY PRN (Reason: Constipation) urea 15 gram/scoop Powder 15 g PO Q72H carvedilol 6.25 mg tablet 6.25 mg PO BID Rx Instructions: must administer with a meal/food Print Language: Bangladeshi
--- NOTE | 2023-12-09 16:06 | PHA.MEDREC ---
Pharmacy Consult ? Medication Reconciliation Pharmacy has completed the medication reconciliation. Confirmed medications with list from [place].
== END 2023-12-09 16:58 | disposition home or self-care (01) ==
PROVIDERS: Emergency Provider Emergency Medicine; PCP Internal Medicine
DX: D64.9 Anemia, unspecified (principal); R79.89 Other specified abnormal findings of blood chemistry; R11.2 Nausea with vomiting, unspecified; F17.210 Nicotine dependence, cigarettes, uncomplicated; M79.89 Other specified soft tissue disorders; Z79.899 Other long term (current) drug therapy
CPT/HCPCS: 36415; 36430; 80048; 80076; 81003; 85025; 85610; 85730; 86850; 86900; 86901; 86923; 96360; 96361; 99284; 99285; P9016

== ENCOUNTER 2023-12-29 13:20 | Emergency (ER) | payer OTHER, SELFPAY ==
[2023-12-29] VITALS (8 sets, daily range): BP systolic 135–154; BP diastolic 62–83; PULSE 61–73; RESP 16–22; TEMP 36.6–37; O2SAT 98–100; BMI 25.1
--- NOTE | 2023-12-29 14:00 | ED_ITS ---
HPI - Recheck/Abnormal Lab/Rx General Chief Complaint: Recheck/Abnormal Lab/Rx Stated Complaint: Blood Transfusion Time Seen by Provider: 12/29/23 16:50 Source: patient History of Present Illness ED Provider: Adrian ALBRECHT narrative: 63-year-old male with past medical history of colon cancer, cirrhosis now s/p transplant 08/02 presenting for anemia. Patient had outpatient lab work done today and was found to be anemic with a hemoglobin of 7.3. Patient has no complaints of fevers, chest pain, shortness of breath, weakness, fatigue and he denies hematochezia/melena. He states he has been anemic in the past however he has never been told why. Related Data Home Medications ?Medication ?Instructions ?Recorded ?Confirmed carvedilol 6.25 mg tablet 6.25 mg PO BID 04/10/22 12/09/23 acetaminophen 325 mg tablet 325 mg PO TID PRN Pain 12/09/23 12/09/23 gabapentin 300 mg capsule 300 mg PO DAILY PRN nerve pain 12/09/23 12/09/23 magnesium oxide 800 mg PO TID 12/09/23 12/09/23 melatonin 5 mg tablet 5 mg PO BEDTIME PRN Sleep 12/09/23 12/09/23 pantoprazole 40 mg tablet,delayed 40 mg PO DAILY@0630 12/09/23 12/09/23 release (Protonix) sennosides 8.6 mg-docusate sodium 1 tab-cap PO DAILY PRN Constipation 12/09/23 12/09/23 50 mg capsule (Senna Plus) sodium zirconium cyclosilicate 10 10 g PO DAILY 12/09/23 12/09/23 gram oral powder packet sulfamethoxazole 400 1 tab PO DAILY 12/09/23 12/09/23 mg-trimethoprim 80 mg tablet (Bactrim) tacrolimus 1 mg capsule, 3 mg PO BID 12/09/23 12/09/23 immediate-release (Prograf) urea 15 gram/scoop oral powder 15 g PO DAILY 12/09/23 12/09/23 ursodiol 300 mg capsule 300 mg PO TID 12/09/23 12/09/23 Allergies Allergy/AdvReac Type Severity Reaction Status Date / Time No Known Allergies Allergy Verified 12/29/23 14:04 Review of Systems 2 Review of Systems: Patient denies head pain, neck pain, weakness, fatigue, chest pain, shortness of breath, abdominal pain, nausea, vomiting, hematochezia/melena Yes all other systems are reviewed and are negative [facility] Past Medical History Attestation statement: The following information was validated with the patient. [facility] Narrative: Liver cirrhosis status post transplant, anemia, colon cancer Source: old records reviewed Medical History (Updated 12/29/23 @ 20:12 by Gigi Campbell MD) History of alcohol abuse Liver cancer Smoker Cardiac murmur Aortic stenosis Hypertension Chronic hepatitis C Alcoholic cirrhosis Surgical History (Updated 07/05/22 @ 10:14 by Ford Duarte [facility]) History of appendectomy H/O colonoscopy History of ablation of neoplasm of liver Social History Social History Alcohol intake: former Patient Tobacco Use Status: Current everyday Tobacco user Tobacco use type: Cigarette Cigarettes Per Day: 6 Years Smoked: 20 years Smoked in Last 30 Days: No Use of substances other than those prescribed or required for medical reasons: No Advance Directives: No Advance Directives Information Provided: Yes Physical Exam 2 Vital Signs: Vital Signs: Last Vital Signs Temp 98.4 F 12/29/23 19:51 Pulse 61 12/29/23 19:51 Resp 20 12/29/23 19:51 BP 154/82 H 12/29/23 19:51 Pulse Ox 98 12/29/23 18:00 O2 Del Method Room Air 12/29/23 18:00 BMI result Body Mass Index 25.1 Course Course Course Narrative: This is a Rapid Medical Examination (RME) performed by Laura Sanabria PA-C in triage. Full HPI, ROS, assessment and treatment plan per primary provider in the Main ED. 63-year-old male with a history of liver cirrhosis s/p liver transplant at [facility] 08/06/23, history of anemia requiring transfusion 12/09/23 who presents to the ER for evaluation of anemia requiring blood transfusion. Patient got his blood work done at the [place] and [place] this morning in his hemoglobin was reportedly 7.3. He denies any signs or symptoms of GI bleeding. He is not on anticoagulation. Patient denies any symptoms of acute anemia including dizziness, weakness, chest pain or shortness of breath. He does admit to dyspnea on exertion when he ambulates long distances. Vital signs are stable in triage Plan: Type and screen, labs Medications Administered Generic Name Dose Route Start Last Admin Trade Name Freq PRN Reason Stop Dose Admin Sodium Chloride 1,000 mls @ 999 mls/hr 12/29/23 20:15 12/29/23 20:57 Ns IV 12/29/23 21:15 999 mls/hr .[id number] CHAR Administration Discontinued Medications Generic Name Dose Route Start Last Admin Trade Name Freq PRN Reason Stop Dose Admin Sodium Chloride 100 mls @ 100 mls/hr 12/29/23 18:19 12/29/23 19:29 Ns IV 12/29/23 19:18 100 mls/hr ONCE ONE Administration Calcium Gluconate 1 gm in 50 mls @ 50 mls/hr 12/29/23 18:21 12/29/23 19:29 Calcium Gluconate IV 12/29/23 19:20 Infused ONCE ONE Infusion Magnesium Sulfate 2 gm in 50 mls @ 25 mls/hr 12/29/23 18:22 12/29/23 20:57 Magnesium Sulfate/H2o IV 12/29/23 20:21 Infused ONCE ONE Infusion Sodium Zirconium Cyclosilicate 10 gm 12/29/23 18:21 12/29/23 18:30 Sodium Zirconium Cyclosilicate 10 Gm Powd.Pack PO 12/29/23 18:22 10 gm ONCE ONE Administration Medical Decision Making Medical Decision Making [facility] Narrative: Patient has history of anemia and I do not suspect that his anemia today is acute however I will obtain and review lab work and I performed a occult stool blood test Occult stool blood test negative Hemoglobin of 7.4; 1 unit of RBC ordered Patient also found to be hyperkalemic and hypomagnesemic with an javier; magnesium, lokelma and calcium ordered No significant EKG abnormalities appreciated Pt placed in ED observaiton for transfusion and fluid resuscitation Signed out to night attending Differential Diagnosis Differential Diagnoses: The differential diagnosis associated with the presentation includes anemia, hyperkalemia, javier Lab Data [facility] Lab Attestation statement: I reviewed the patient's lab results. Anemic, hyperkalemic, elevated creatinine 12/29/23 14:19 12/29/23 20:09 Labs: Lab Results 12/29/23 12/29/23 12/29/23 Range/Units 14:19 17:10 17:12 WBC 2.3 L (4.8-10.8) X10*3/uL RBC 2.29 L (4.60-5.80) X10*6/uL Hgb 7.4 L (14.0-18.0) g/dl Hct 21.3 L (42.0-52.0) % MCV 93.0 (80.0-98.0) fL MCH 32.3 (27.0-33.0) pg MCHC 34.7 (31.0-36.0) g/dl RDW 16.0 (11.0-16.0) % Plt Count 133 L (160-400) X10*3/uL MPV 9.9 (9.4-12.4) fL Immature Gran % (Auto) 0.9 H (0.0-0.4) % Neut % (Auto) 37.3 L (45-73) % Lymph % (Auto) 29.0 (20-40) % [place] % (Auto) 24.2 H (2-11) % Eos % (Auto) 8.2 H (0-4) % Baso % (Auto) 0.4 (0-2) % Lymph # (Auto) 0.7 L (1.2-4.9) X10*3/uL [place] # (Auto) 0.6 (0.1-1.2) X10*3/uL Eos # (Auto) 0.2 (0.0-0.4) X10*3/uL Baso # (Auto) 0.0 (0.0-0.2) X10*3/uL Abs Immat Gran (auto) 0.02 (0.00-0.03) X10*3/uL Absolute Neuts (auto) 0.9 L (2.0-8.3) x10*3/uL Absolute Nucleated RBC 0.000 (0.0-0.012) X10*3/uL Nucleated RBC % (auto) 0.0 (0.0-0.2) /100WBC Smear Tech's Comments VERIFIED Absolute Retic 0.097 H (0.026-0.095) X10*6/uL Percent Retic 4.3 H (0.5-1.8) % Immature Retic Fraction 20.8 H (2.3-13.4) % Retic Hgb Equivalent 34.4 (30.0-35.0) pg PT (11.1-13.3) SEC INR (0.9-1.1) Fibrinogen 434 (259-690) MG/DL Sodium 131 L (135-145) mmol/L Potassium 5.4 H D (3.3-5.1) mmol/L Chloride 102 (96-108) mmol/L Carbon Dioxide 23 (22-29) mmol/L Anion Gap 11 L (12-20) BUN 46 H (9-16) mg/dL Creatinine 1.77 H (0.5-1.4) mg/dL Estim Creat Clear Calc 44.6 Estimated GFR 39 Random Glucose 88 (60-115) mg/dL Haptoglobin 26 L (40-268) mg/dL Calcium 9.6 (8.4-10.2) mg/dL Magnesium 1.5 L (1.6-2.6) mg/dL Iron 199 H (45-160) mcg/dL TIBC 224 L (228-428) mcg/dL % Saturation 89 H (15-50) % Unsat Iron Binding < 25 ug/dL Total Bilirubin 0.8 (0.0-1.0) mg/dL Direct Bilirubin 0.3 (0.0-0.5) mg/dL AST 16 (5-37) U/L ALT 13 (0-40) U/L Alkaline Phosphatase 52 (39-117) U/L Lactate Dehydrogenase 205 (118-273) U/L Total Protein 7.1 (6.5-8.0) g/dL Albumin 4.1 (3.5-5.0) g/dL Urine Color Yellow Urine Appearance Clear Urine pH 7.5 (5.0-9.0) Ur Specific [place] 1.015 (1.005-1.025) Urine Protein Negative (Neg-Trace) mg/dL Urine Glucose (UA) Negative (Negative) mg/dL Urine Ketones Negative (Negative) mg/dL Urine Blood Negative (Negative) Urine Nitrite Negative (Negative) Ur Leukocyte Esterase Negative (Negative) Stool Occult Blood NEGATIVE (NEGATIVE) Blood Type O Positive Antibody Screen NEGATIVE Crossmatch See Detail 12/29/23 12/29/23 Range/Units 18:45 20:09 WBC (4.8-10.8) X10*3/uL RBC (4.60-5.80) X10*6/uL Hgb (14.0-18.0) g/dl Hct (42.0-52.0) % MCV (80.0-98.0) fL MCH (27.0-33.0) pg MCHC (31.0-36.0) g/dl RDW (11.0-16.0) % Plt Count (160-400) X10*3/uL MPV (9.4-12.4) fL Immature Gran % (Auto) (0.0-0.4) % Neut % (Auto) (45-73) % Lymph % (Auto) (20-40) % [place] % (Auto) (2-11) % Eos % (Auto) (0-4) % Baso % (Auto) (0-2) % Lymph # (Auto) (1.2-4.9) X10*3/uL [place] # (Auto) (0.1-1.2) X10*3/uL Eos # (Auto) (0.0-0.4) X10*3/uL Baso # (Auto) (0.0-0.2) X10*3/uL Abs Immat Gran (auto) (0.00-0.03) X10*3/uL Absolute Neuts (auto) (2.0-8.3) x10*3/uL Absolute Nucleated RBC (0.0-0.012) X10*3/uL Nucleated RBC % (auto) (0.0-0.2) /100WBC Smear Tech's Comments Absolute Retic (0.026-0.095) X10*6/uL Percent Retic (0.5-1.8) % Immature Retic Fraction (2.3-13.4) % Retic Hgb Equivalent (30.0-35.0) pg PT 13.8 H (11.1-13.3) SEC INR 1.1 (0.9-1.1) Fibrinogen (259-690) MG/DL Sodium (135-145) mmol/L Potassium 4.9 (3.3-5.1) mmol/L Chloride (96-108) mmol/L Carbon Dioxide (22-29) mmol/L Anion Gap (12-20) BUN (9-16) mg/dL Creatinine (0.5-1.4) mg/dL Estim Creat Clear Calc Estimated GFR Random Glucose (60-115) mg/dL Haptoglobin (40-268) mg/dL Calcium (8.4-10.2) mg/dL Magnesium (1.6-2.6) mg/dL Iron (45-160) mcg/dL TIBC (228-428) mcg/dL % Saturation (15-50) % Unsat Iron Binding ug/dL Total Bilirubin (0.0-1.0) mg/dL Direct Bilirubin (0.0-0.5) mg/dL AST (5-37) U/L ALT (0-40) U/L Alkaline Phosphatase (39-117) U/L Lactate Dehydrogenase (118-273) U/L Total Protein (6.5-8.0) g/dL Albumin (3.5-5.0) g/dL Urine Color Urine Appearance Urine pH (5.0-9.0) Ur Specific [place] (1.005-1.025) Urine Protein (Neg-Trace) mg/dL Urine Glucose (UA) (Negative) mg/dL Urine Ketones (Negative) mg/dL Urine Blood (Negative) Urine Nitrite (Negative) Ur Leukocyte Esterase (Negative) Stool Occult Blood (NEGATIVE) Blood Type Antibody Screen Crossmatch Independent Interpretation I performed an independent interpretation of an: EKG Interpretation: No significant EKG changes appreciated Discharge Plan Discharge Clinical Impression: Anemia, JAVIER (acute kidney injury), Hyperkalemia Prescriptions: No Action sulfamethoxazole-trimethoprim [Bactrim] 400-80 mg Tablet 1 tab PO DAILY pantoprazole [Protonix] 40 mg Tablet,Delayed Release (Dr/Ec) 40 mg PO DAILY@0630 ursodiol 300 mg Capsule 300 mg PO TID tacrolimus [Prograf] 1 mg Capsule 3 mg PO BID magnesium oxide 400 mg magnesium Tablet 800 mg PO TID Senna Plus 8.6-50 mg Capsule 1 tab-cap PO DAILY PRN (Reason: Constipation) urea 15 gram/scoop Powder 15 g PO DAILY acetaminophen 325 mg Tablet 325 mg PO TID PRN (Reason: Pain) gabapentin 300 mg Capsule 300 mg PO DAILY PRN (Reason: nerve pain) melatonin 5 mg Tablet 5 mg PO BEDTIME PRN (Reason: Sleep) sodium zirconium cyclosilicate 10 gram Powder In Packet 10 g PO DAILY carvedilol 6.25 mg tablet 6.25 mg PO BID Rx Instructions: must administer with a meal/food Print Language: Palestinian ED Observation ED Observation Admit Reason for Observation: Other (Blood transfusion and fluid resuscitation) Anticipated Goals: Discharge Diagnostic Studies: Lab work HPI and ROS: 63-year-old with history of liver transplant and anemia presenting for anemia. Found to be anemic with hemoglobin of 7.4. Patient also found to have an JAVIER and hyperkalemia. Lokelma, blood, fluids and calcium were given
[2023-12-29 14:25] LABS: Basophils Percent Auto 0.4 % (0-2); Eosinophils Absolute Auto 0.2 X10*3/uL (0.0-0.4); Eosinophils Percent Auto 8.2 % (0-4); Hematocrit 21.3 % (42.0-52.0); Hemoglobin 7.4 g/dl (14.0-18.0); Imm Gran Abs Auto 0.02 X10*3/uL (0.00-0.03); Imm Gran Pct Auto 0.9 % (0.0-0.4); Lymphocytes Absolute Auto 0.7 X10*3/uL (1.2-4.9); MANUAL DIFF FLAG SCAN; Mean Corpuscular HGB Conc 34.7 g/dl (31.0-36.0); Mean Corpuscular Hemoglobin 32.3 pg (27.0-33.0); Mean Platelet Volume 9.9 fL (9.4-12.4); Monocytes Absolute Auto 0.6 X10*3/uL (0.1-1.2); Monocytes Percent Auto 24.2 % (2-11); Neutrophils Absolute Auto 0.9 x10*3/uL (2.0-8.3); Neutrophils Percent Auto 37.3 % (45-73); Platelet Count 133 X10*3/uL (160-400); Red Blood Count 2.29 X10*6/uL (4.60-5.80); SCAN SMEAR FLAG 1
[2023-12-29 14:26] LABS: White Blood Count 2.3 X10*3/uL (4.8-10.8)
[2023-12-29 14:43] LABS: SLIDE REVIEW VERIFIED
[2023-12-29 14:44] LABS: Alanine Aminotransferase 13 U/L (0-40); Albumin Level 4.1 g/dL (3.5-5.0); Alkaline Phosphatase 52 U/L (39-117); Anion Gap 11 (12-20); Aspartate Amino Transferase 16 U/L (5-37); Bilirubin Direct 0.3 mg/dL (0.0-0.5); Bilirubin Total 0.8 mg/dL (0.0-1.0); Blood Urea Nitrogen 46 mg/dL (9-16); Calcium 9.6 mg/dL (8.4-10.2); Carbon Dioxide 23 mmol/L (22-29); Chloride 102 mmol/L (96-108); Creatinine Clr Calc Pharmacy 44.6; Estimated Glomerular Filt Rate 39; Glucose Random 88 mg/dL (60-115); Iron 199 mcg/dL (45-160); Magnesium 1.5 mg/dL (1.6-2.6); Percent Iron Saturation 89 % (15-50); Potassium 5.4 mmol/L (3.3-5.1); Sodium 131 mmol/L (135-145); Total Iron Binding Capacity 224 mcg/dL (228-428); Total Protein 7.1 g/dL (6.5-8.0); Unsaturated Iron Binding < 25 ug/dL
[2023-12-29 17:32] LABS: Appearance Urine Clear; Color Urine Yellow; Glucose Urine UA Negative (Negative); Leukocyte Esterase Urine Negative (Negative); Nitrite Urine Negative (Negative); Specific Gravity - Urine 1.015 (1.005-1.025); Urine Blood Negative (Negative); Urine Ketones Negative (Negative); Urine Protein Negative (Neg-Trace)
[2023-12-29 17:34] LABS: OBS Int Ctl Valid YES; OBS1 NEGATIVE (NEGATIVE); PH 7.5 (5.0-9.0)
[2023-12-29 17:38] LABS: Fibrinogen 434 MG/DL (259-690)
[2023-12-29 17:46] LABS: Haptoglobin 26 mg/dL (40-268); Lactate Dehydrogenase 205 U/L (118-273)
[2023-12-29 17:47] LABS: Immature Retic Fraction 20.8 % (2.3-13.4); Retic HGB Equivalent 34.4 pg (30.0-35.0); Reticulocyte Percent 4.3 % (0.5-1.8); Reticulocytes Absolute 0.097 X10*6/uL (0.026-0.095)
--- NOTE | 2023-12-29 18:20 | ECG_ITS ---
Test Reason : HYPERKALEMIA Blood Pressure : / mmHG Vent. Rate : 060 BPM Atrial Rate : 060 BPM P-R Int : 176 ms QRS Dur : 082 ms QT Int : 400 ms P-R-T Axes : 023 -19 008 degrees QTc Int : 400 ms Normal sinus rhythm Minimal voltage criteria for LVH, may be normal variant ( R in aVL ) Borderline ECG When compared with ECG of 17-JAN-2014 21:45, Criteria for Septal infarct are no longer Present Nonspecific T wave abnormality no longer evident in Lateral leads Referred By: Gigi Campbell Electronically Signed By:SANDRA BANKS
[2023-12-29] MEDS: Sodium Zirconium Cyclosilicate 10 GM POWD.PACK PO (18:30)
[2023-12-29] MEDS: Calcium Gluconate/NaCl,Iso-Osm 1 GM/50 ML PLAST..BAG IV (18:32)
[2023-12-29] MEDS: Magnesium Sulfate/H2O 2 GM/50 ML PIGGYBACK IV (18:48)
[2023-12-29 19:11] LABS: INTERNATIONAL NORM RATIO 1.1 (0.9-1.1); Prothrombin Time 13.8 SEC (11.1-13.3)
--- NOTE | 2023-12-29 20:02 | MHC.EDTECH ---
This tech took over care of patient at 1900,rounds completed,patient is currently getting blood transfusion at this time RN at bedside,vitals documented in mar by RN,Call banks in reach
--- NOTE | 2023-12-29 20:10 | MHC.EDTECH ---
Lab drawn at this time and sent to lab.
[2023-12-29 20:20] LABS: Potassium 4.9 mmol/L (3.3-5.1)
[2023-12-29] MEDS: 0.9 % Sodium Chloride 1,000 ML 999 ML IV (20:57)
--- NOTE | 2023-12-29 21:37 | PC.NURSE ---
Labs to be drawn after fluids/blood complete per Dr. Perez.
--- NOTE | 2023-12-29 21:59 | MHC.EDTECH ---
Hourly rounds and vitals completed, Repeat labs that are in for 2100 are not to be drawn per Doctors request,they are to be drawn after blood and fluids are completed, Call banks in reach
[2023-12-29 22:27] LABS: Hematocrit 21.5 % (42.0-52.0); Hemoglobin 7.6 g/dl (14.0-18.0); Mean Corpuscular HGB Conc 35.3 g/dl (31.0-36.0); Mean Corpuscular Hemoglobin 32.1 pg (27.0-33.0); Mean Corpuscular Volume 90.7 fL (80.0-98.0); Mean Platelet Volume 11.2 fL (9.4-12.4); Platelet Count 138 X10*3/uL (160-400); Red Blood Count 2.37 X10*6/uL (4.60-5.80); Red Cell Distribution Width 15.6 % (11.0-16.0); White Blood Count 2.6 X10*3/uL (4.8-10.8)
--- NOTE | 2023-12-29 22:32 | MHC.EDTECH ---
Repeat labs drawn and sent to lab
[2023-12-29 22:38] LABS: Anion Gap 11 (12-20); Blood Urea Nitrogen 37 mg/dL (9-16); Calcium 8.9 mg/dL (8.4-10.2); Carbon Dioxide 19 mmol/L (22-29); Chloride 104 mmol/L (96-108); Creatinine Clr Calc Pharmacy 54.5; Estimated Glomerular Filt Rate 49; Glucose Random 106 mg/dL (60-115); Potassium 4.4 mmol/L (3.3-5.1); Sodium 130 mmol/L (135-145)
[2023-12-30 01:25] VITALS: BP 130/77; PULSE 58; RESP 19; TEMP 36.9; O2SAT 100
[2023-12-30 05:38] VITALS: BP 150/78; PULSE 71; RESP 16; TEMP 36.6; O2SAT 98
[2023-12-30 07:22] VITALS: BP 146/81; PULSE 65; RESP 16; O2SAT 99
[2023-12-30 07:25] LABS: Hematocrit 25.4 % (42.0-52.0); Hemoglobin 9.1 g/dl (14.0-18.0); Mean Corpuscular HGB Conc 35.8 g/dl (31.0-36.0); Mean Corpuscular Hemoglobin 32.2 pg (27.0-33.0); Mean Corpuscular Volume 89.8 fL (80.0-98.0); Mean Platelet Volume 10.1 fL (9.4-12.4); Platelet Count 149 X10*3/uL (160-400); Red Blood Count 2.83 X10*6/uL (4.60-5.80); Red Cell Distribution Width 15.6 % (11.0-16.0); White Blood Count 2.8 X10*3/uL (4.8-10.8)
[2023-12-30 07:40] VITALS: BP 146/81; PULSE 65; RESP 16; TEMP 37; O2SAT 99
== END 2023-12-30 07:41 | disposition home or self-care (01) ==
PROVIDERS: Emergency Medicine; Physician Assistant; Emergency Provider Student in an Organized Health Care Education/Training Program; PCP Internal Medicine
DX: D64.9 Anemia, unspecified (principal); N17.9 Acute kidney failure, unspecified; E87.5 Hyperkalemia; E83.42 Hypomagnesemia; K74.60 Unspecified cirrhosis of liver; F17.210 Nicotine dependence, cigarettes, uncomplicated; Z94.4 Liver transplant status; Z85.05 Personal history of malignant neoplasm of liver; Z85.118 Personal history of other malignant neoplasm of bronchus and lung; Z79.899 Other long term (current) drug therapy
CPT/HCPCS: 36415; 36430; 80048; 80076; 81003; 82272; 83010; 83540; 83615; 83735; 84132; 85025; 85027; 85045; 85384; 85610; 86850; 86900; 86901; 86923; 93005; 96365; 96367; 99285; J0613; J3475; P9016

== ENCOUNTER 2024-01-13 17:08 | Inpatient (IN) | payer OTHER, SELFPAY ==
[2024-01-13] VITALS (9 sets, daily range): BP systolic 115–142; BP diastolic 66–79; PULSE 67–90; RESP 14–20; TEMP 36.5–37; O2SAT 98–100; BMI 24.3
--- NOTE | 2024-01-13 17:11 | ED_ITS ---
HPI - General Adult General Chief complaint: Recheck/Abnormal Lab/Rx Stated complaint: Abnormal labs/?Transfusion Needed Time Seen by Provider: 01/13/24 17:25 Source: patient Limitations: no limitations History of Present Illness ED Provider: Maria Eugenia Jacobs PA-C HPI narrative: 63-year-old male status s/p liver transplant 4 months ago at [facility] in [place], with history of colon cancer, cirrhosis presents with abnormal labs. Patient states he had a follow up appointment today but his primary care provider, labs were obtained. He received a call back from his healthcare provider, he was instructed to go to the emergency department for blood transfusion. Associated black tarry stools over the past 2 days, and shortness of breath with exertion. Patient denies abdominal pain, dizziness, headache, chest pain, nausea or vomiting. Related Data Home Medications ?Medication ?Instructions ?Recorded ?Confirmed carvedilol 6.25 mg tablet 6.25 mg PO BID 04/10/22 12/09/23 acetaminophen 325 mg tablet 325 mg PO TID PRN Pain 12/09/23 12/09/23 gabapentin 300 mg capsule 300 mg PO DAILY PRN nerve pain 12/09/23 12/09/23 magnesium oxide 800 mg PO TID 12/09/23 12/09/23 melatonin 5 mg tablet 5 mg PO BEDTIME PRN Sleep 12/09/23 12/09/23 pantoprazole 40 mg tablet,delayed 40 mg PO DAILY@0630 12/09/23 12/09/23 release (Protonix) sennosides 8.6 mg-docusate sodium 1 tab-cap PO DAILY PRN Constipation 12/09/23 12/09/23 50 mg capsule (Senna Plus) sodium zirconium cyclosilicate 10 10 g PO DAILY 12/09/23 12/09/23 gram oral powder packet sulfamethoxazole 400 1 tab PO DAILY 12/09/23 12/09/23 mg-trimethoprim 80 mg tablet (Bactrim) tacrolimus 1 mg capsule, 3 mg PO BID 12/09/23 12/09/23 immediate-release (Prograf) urea 15 gram/scoop oral powder 15 g PO DAILY 12/09/23 12/09/23 ursodiol 300 mg capsule 300 mg PO TID 12/09/23 12/09/23 Allergies Allergy/AdvReac Type Severity Reaction Status Date / Time No Known Allergies Allergy Verified 01/13/24 17:14 Review of Systems 2 Review of Systems: Yes all other systems are reviewed and are negative Constitutional: Constitutional: Denies fatigue and Denies fever(s) Cardiovascular: Cardiovascular: Denies chest pain and Reports dyspnea on exertion Respiratory: Respiratory: Reports dyspnea on exertion Gastrointestinal: Gastrointestinal: Denies abdominal pain, Reports melena, Denies GI cramping and Denies diarrhea Endocrine: Endocrine: Denies fatigue PMFSH Past Medical History Attestation statement: The following information was validated with the patient. Medical History (Updated 01/13/24 @ 18:42 by DANA Lanier) History of alcohol abuse Liver cancer Smoker Cardiac murmur Aortic stenosis Hypertension Chronic hepatitis C Alcoholic cirrhosis Surgical History (Updated 07/05/22 @ 10:14 by DORCAS Silver) History of appendectomy H/O colonoscopy History of ablation of neoplasm of liver Social History Social History Alcohol intake: former Patient Tobacco Use Status: Current everyday Tobacco user Tobacco use type: Cigarette Cigarettes Per Day: 6 Years Smoked: 20 years Advance Directives: No Advance Directives Information Provided: No Do you have a plan to hurt others: No Plan Physical Exam ED Vital Signs: Vital Signs - 24 hr 01/13/24 17:10 01/13/24 18:05 01/13/24 18:45 Temperature 98 F 98.2 F 97.7 F Pulse Rate 90 88 79 Respiratory Rate 19 20 20 Blood Pressure 139/74 129/75 127/72 Pulse Oximetry 98 100 Oxygen Delivery Method Room Air 01/13/24 19:01 Temperature 98.5 F Pulse Rate 79 Respiratory Rate 14 Blood Pressure 135/75 Pulse Oximetry Oxygen Delivery Method BMI result Body Mass Index 24.3 Const Other: Alert, well in appearance Orientation/consciousness: patient oriented x3 Resp Other: Nonlabored respiration Cardio Other: Normal peripheral perfusion GI Other: Abdomen is soft, nondistended, nontender no guarding Inspection: No distended Skin Other: Warm, dry, no rash, pale Neuro General: patient oriented x3, gait normal, no focal motor deficits and CN's II- XI intact bilaterally Extrem Other: Strength 5/5 bilateral upper and lower extremities Psych Other: Calm cooperative Course Course Course Narrative: RME, this is a rapid medical exam performed by Gunnar Reed please refer to primary provider for complete H&P- 63-year-old male presents for evaluation of ?low blood counts. ? Patient reports he is on his way home from a doctor's appointment. He reports he was told to go to the ER for ?a blood transfusion. ? He reports having had a liver transplant 4 months ago at [facility] in [place]. Patient does endorse dark stools. Plan for labs including type and screen Medications Administered Discontinued Medications Generic Name Dose Route Start Last Admin Trade Name Maximo PRN Reason Stop Dose Admin Sodium Chloride 100 mls @ 100 mls/hr 01/13/24 18:14 01/13/24 19:37 Ns IV 01/13/24 19:13 Infused ONCE ONE Infusion Medical Decision Making Medical Decision Making MDM Narrative: 63-year-old male status s/p liver transplant 4 months ago at [facility] in [place], with history of colon cancer, cirrhosis presents with abnormal labs. Patient states he had a follow up appointment today but his primary care provider, labs were obtained. He received a call back from his healthcare provider, he was instructed to go to the emergency department for blood transfusion. Associated black tarry stools over the past 2 days, and shortness of breath with exertion. Patient denies abdominal pain, dizziness, headache, chest pain, nausea or vomiting. Problem: GI bleed, liver transplant History: Per patient I have considered the following differential diagnoses: Upper GI bleed, lower GI bleed, hemorrhoids, diverticulitis, diverticulosis Plan: The patient is assessment began from [facility], screening labs, type and screen and coagulation studies were obtained. The patient does not have report of abdominal pain, his abdominal exam was benign, he does not require a CT scan. He will likely be seeing GI during his assessment for endoscopy/colonoscopy. He is critically anemic, his H&H are 6 and 18 respectively, ordering packed red blood cells, we will admit to the hospital I have independently reviewed the following tests: Labs: Critical anemia H&H are 6 in 18, his creatinine is elevated as well he has an JAVIER, it is now 3.18 his potassium is normal at 4.5, we will start IV fluid. Lab Data 01/13/24 17:28 01/13/24 17:28 Labs: Lab Results 01/13/24 Range/Units 17:28 WBC 3.6 L (4.8-10.8) X10*3/uL RBC 1.89 L D (4.60-5.80) X10*6/uL Hgb 6.1 L* D (14.0-18.0) g/dl Hct 18.0 L* D (42.0-52.0) % MCV 95.2 (80.0-98.0) fL MCH 32.3 (27.0-33.0) pg MCHC 33.9 (31.0-36.0) g/dl RDW 15.1 (11.0-16.0) % Plt Count 209 D (160-400) X10*3/uL MPV 10.6 (9.4-12.4) fL Immature Gran % (Auto) 4.7 H (0.0-0.4) % Neut % (Auto) 60.4 (45-73) % Lymph % (Auto) 13.3 L (20-40) % Fisher % (Auto) 15.8 H (2-11) % Eos % (Auto) 5.8 H (0-4) % Baso % (Auto) 0.0 (0-2) % Lymph # (Auto) 0.5 L (1.2-4.9) X10*3/uL Fisher # (Auto) 0.6 (0.1-1.2) X10*3/uL Eos # (Auto) 0.2 (0.0-0.4) X10*3/uL Baso # (Auto) 0.0 (0.0-0.2) X10*3/uL Abs Immat Gran (auto) 0.17 H (0.00-0.03) X10*3/uL Absolute Neuts (auto) 2.2 (2.0-8.3) x10*3/uL Absolute Nucleated RBC 0.000 (0.0-0.012) X10*3/uL Nucleated RBC % (auto) 0.0 (0.0-0.2) /100WBC PT 15.8 H (11.1-13.3) SEC INR 1.3 H (0.9-1.1) Sodium 135 (135-145) mmol/L Potassium 4.5 (3.3-5.1) mmol/L Chloride 104 (96-108) mmol/L Carbon Dioxide 21 L (22-29) mmol/L Anion Gap 15 (12-20) BUN 70 H (9-16) mg/dL Creatinine 3.18 H (0.5-1.4) mg/dL Estim Creat Clear Calc 23.3 Estimated GFR 20 Random Glucose 145 H (60-115) mg/dL Calcium 9.7 D (8.4-10.2) mg/dL Total Bilirubin 0.6 (0.0-1.0) mg/dL AST 14 (5-37) U/L ALT 20 (0-40) U/L Alkaline Phosphatase 50 (39-117) U/L Troponin I High Sens 3.7 (<3.5-35.0) ng/L Total Protein 7.6 (6.5-8.0) g/dL Albumin 3.9 (3.5-5.0) g/dL Lipase 16 (8-78) U/L Blood Type O Positive Antibody Screen NEGATIVE Crossmatch See Detail Discharge Plan Discharge Clinical Impression: JAVIER (acute kidney injury), UGIB (upper gastrointestinal bleed), Anemia Patient Disposition: Admitted As Inpatient
--- NOTE | 2024-01-13 17:12 | ECG_ITS ---
Test Reason : WEAKNESS Blood Pressure : / mmHG Vent. Rate : 084 BPM Atrial Rate : 084 BPM P-R Int : 148 ms QRS Dur : 082 ms QT Int : 376 ms P-R-T Axes : 003 004 015 degrees QTc Int : 444 ms Normal sinus rhythm Minimal voltage criteria for LVH, may be normal variant ( Sokolow-Sue ) Borderline ECG When compared with ECG of 29-DEC-2023 18:42, No significant change was found Referred By: Raji Reed Electronically Signed By:SANDRA BANKS
[2024-01-13 17:33] LABS: MANUAL DIFF FLAG NO
[2024-01-13 17:35] LABS: Eosinophils Absolute Auto 0.2 X10*3/uL (0.0-0.4); Eosinophils Percent Auto 5.8 % (0-4); Imm Gran Abs Auto 0.17 X10*3/uL (0.00-0.03); Imm Gran Pct Auto 4.7 % (0.0-0.4); Lymphocytes Absolute Auto 0.5 X10*3/uL (1.2-4.9); Lymphocytes Percent Auto 13.3 % (20-40); Mean Corpuscular HGB Conc 33.9 g/dl (31.0-36.0); Mean Corpuscular Hemoglobin 32.3 pg (27.0-33.0); Mean Corpuscular Volume 95.2 fL (80.0-98.0); Mean Platelet Volume 10.6 fL (9.4-12.4); Monocytes Absolute Auto 0.6 X10*3/uL (0.1-1.2); Monocytes Percent Auto 15.8 % (2-11); Neutrophils Absolute Auto 2.2 x10*3/uL (2.0-8.3); Neutrophils Percent Auto 60.4 % (45-73); Platelet Count 209 X10*3/uL (160-400); Red Blood Count 1.89 X10*6/uL (4.60-5.80); Red Cell Distribution Width 15.1 % (11.0-16.0); White Blood Count 3.6 X10*3/uL (4.8-10.8)
[2024-01-13 17:40] LABS: Hemoglobin 6.1 g/dl (14.0-18.0); INTERNATIONAL NORM RATIO 1.3 (0.9-1.1); Prothrombin Time 15.8 SEC (11.1-13.3)
[2024-01-13 18:07] LABS: Alanine Aminotransferase 20 U/L (0-40); Albumin Level 3.9 g/dL (3.5-5.0); Alkaline Phosphatase 50 U/L (39-117); Anion Gap 15 (12-20); Aspartate Amino Transferase 14 U/L (5-37); Bilirubin Total 0.6 mg/dL (0.0-1.0); Blood Urea Nitrogen 70 mg/dL (9-16); Calcium 9.7 mg/dL (8.4-10.2); Carbon Dioxide 21 mmol/L (22-29); Chloride 104 mmol/L (96-108); Creatinine Clr Calc Pharmacy 23.3; Estimated Glomerular Filt Rate 20; Glucose Random 145 mg/dL (60-115); Lipase 16 U/L (8-78); Potassium 4.5 mmol/L (3.3-5.1); Sodium 135 mmol/L (135-145); Total Protein 7.6 g/dL (6.5-8.0)
[2024-01-13 18:15] LABS: Troponin-I High Sensitivity 3.7 ng/L (<3.5-35.0)
--- NOTE | 2024-01-13 18:56 | PC.NURSE ---
blood transfusion started, running at 100ml/hr. patient is alert and oriented x4. ambulatory
--- NOTE | 2024-01-13 19:41 | PM.IMHP ---
History of Present Illness Date of Service: 01/13/24 Attending physician on admission: Julio C Flores Chief Complaint: low blood counts per tint layer, melena 63-year-old male with history of aortic stenosis, hypertension, alcoholic cirrhosis, hepatitis-C, liver cancer s/p ablation therapy and s/p liver transplant 07/2023 following with [facility] hepatology presented to the ED earlier today at the recommendation of his hematology team ([facility]) due to low blood counts. He states he had blood work earlier today that had been routinely ordered and was found to be significantly anemic from baseline. He does state that he has had several episodes of melena over the last 2 days. Denies anyfevers, chills, abd pain, n/v/d, brbpr, urinary symptoms, cough, recent illness. He does endorse chronic MORSE and positional lightheadedness. No chest pains or syncope. Since arrival, VSS. He has a chronic leukopenia with WBC 3.6, slightly increased from baseline, RBC 1.89, H/H 6.1/18.0% (was 9.1/25.4% on 12/29). Platelets 209. Creatinine 3.18, baseline around 1.45. BUN 70. Electrolyte levels normal. Hepatic function within normal limits. EKG shows NSR, rate [address]/T-wave abnormality, unchanged from prior EKGs. In the ED, has received 1 unit packed red blood cells. He will be admitted for further management of acute blood loss anemia due to GI bleed. He is not on any blood thinners and denies NSAID use. Of note, pt states that he had an appt with his relationship manager at [place] with EGD performed last week- records requested. Review of Systems Review of Systems: Yes all other systems are reviewed and are negative [facility] Medical History (Updated 01/13/24 @ 18:42 by DANA Lanier) History of alcohol abuse Liver cancer Smoker Cardiac murmur Aortic stenosis Hypertension Chronic hepatitis C Alcoholic cirrhosis Surgical History (Updated 07/05/22 @ 10:14 by DORCAS Silver) History of appendectomy H/O colonoscopy History of ablation of neoplasm of liver Social History Alcohol intake: former Patient Tobacco Use Status: Current everyday Tobacco user Tobacco use type: Cigarette Cigarettes Per Day: 6 Years Smoked: 20 years Advance Directives: No Advance Directives Information Provided: No Do you have a plan to hurt others: No Plan Meds Allergies Allergy/AdvReac Type Severity Reaction Status Date / Time No Known Allergies Allergy Verified 01/13/24 17:14 Active Medications: Current Medications Lactated Ringer's (Lr) 1,000 mls @ 999 mls/hr IV .Q1H1M CHAR Stop: 01/13/24 20:30 Home Medications ?Medication ?Instructions ?Recorded ?Confirmed ?Last Taken ?Type magnesium oxide 1,200 mg PO BID@1200,1700 12/09/23 01/13/24 01/13/24 History pantoprazole 40 mg tablet,delayed 40 mg PO DAILY@0630 12/09/23 01/13/24 01/13/24 History release (Protonix) sennosides 8.6 mg-docusate sodium 1 tab-cap PO DAILY PRN Constipation 12/09/23 01/13/24 Unknown History 50 mg capsule (Senna Plus) sodium zirconium cyclosilicate 10 10 g PO Q48H 12/09/23 01/13/24 01/12/24 History gram oral powder packet sulfamethoxazole 400 1 tab PO DAILY 12/09/23 01/13/24 01/13/24 History mg-trimethoprim 80 mg tablet (Bactrim) tacrolimus 1 mg capsule, 4 mg PO DAILY 12/09/23 01/13/24 01/13/24 History immediate-release (Prograf) urea 15 gram/scoop oral powder 15 g PO Q48H 12/09/23 01/13/24 01/13/24 History ursodiol 300 mg capsule 300 mg PO BID 12/09/23 01/13/24 01/13/24 History acetaminophen 500 mg tablet 500 mg PO Q4-6H PRN Pain 01/13/24 01/13/24 Unknown History (Tylenol Extra Strength) magnesium oxide 800 mg PO DAILY 01/13/24 01/13/24 01/13/24 History tacrolimus 5 mg capsule, 5 mg PO BEDTIME 01/13/24 01/13/24 01/13/24 History immediate-release (Prograf) Physical Exam Vital Signs and Narrative: Vital Signs: Last Vital Signs Temp 98.5 F 01/13/24 19:01 Pulse 79 01/13/24 19:01 Resp 14 01/13/24 19:01 BP 135/75 01/13/24 19:01 Pulse Ox 100 01/13/24 18:05 O2 Del Method Room Air 01/13/24 18:05 BMI result Body Mass Index 24.3 Constitutional - Awake and Alert, No apparent distress Eyes - PERRLA, EOMI Cardiovascular - S1S2, RRR, III/ systolic murmur, No edema Respiratory - Normal lung expansion, Normal respiratory effort, No respiratory distress, CTA bilaterally Gastrointestinal - NT / ND; +BS; No rebound or guarding Extremities - no calf tenderness bilaterally, no swelling Skin - Warm/Dry Neurological - Alert & oriented x3 Psychological - Appropriate affect Results Labs 01/13/24 17:28 01/13/24 17:28 Labs: Laboratory Results - last 24 hr 01/13/24 17:28 MCV 95.2 MCH 32.3 MCHC 33.9 RDW 15.1 Plt Count 209 D MPV 10.6 Immature Gran % (Auto) 4.7 H Neut % (Auto) 60.4 Lymph % (Auto) 13.3 L Bradley % (Auto) 15.8 H Eos % (Auto) 5.8 H Baso % (Auto) 0.0 Lymph # (Auto) 0.5 L Bradley # (Auto) 0.6 Eos # (Auto) 0.2 Baso # (Auto) 0.0 Abs Immat Gran (auto) 0.17 H Absolute Neuts (auto) 2.2 Absolute Nucleated RBC 0.000 Nucleated RBC % (auto) 0.0 PT 15.8 H INR 1.3 H Anion Gap 15 Estim Creat Clear Calc 23.3 Estimated GFR 20 Random Glucose 145 H Calcium 9.7 D Total Bilirubin 0.6 AST 14 ALT 20 Alkaline Phosphatase 50 Troponin I High Sens 3.7 Total Protein 7.6 Albumin 3.9 Lipase 16 Blood Type O Positive Antibody Screen NEGATIVE Crossmatch See Detail Assessment and Plan (1) Anemia: Status: Acute (2) UGIB (upper gastrointestinal bleed): Status: Acute (3) JAVIER (acute kidney injury): Status: Acute Plan 63-year-old male with history of aortic stenosis, hypertension, history of alcoholic cirrhosis, history of hepatitis-C, liver cancer s/p ablation therapy and s/p liver transplant 07/2023 following with [facility] hepatology admitted for acute blood loss anemia due to GI bleed. #acute blood loss anemia due to GI bleed -H/H 6.1/18.0% (was 9.1/25.4% on 12/29). Transfused 1 unit in ED, addl 1 unit PRBC ordered -Melena x2 days -IV PPI -clear liquids, NPO after midnight in case of procedure -IVF x 1L -GI consult -cardiac monitoring -follow h/h -*had EGD performed at [facility] last week for stent removal- records requested -has chronic normocytic anemia at baseline, follows with [facility] # acute kidney injury -due to hypoperfusion from anemia -IVF x1 L and 2 units packed red blood cells -follow renal function/lytes #H/o of liver transplant with liver cancer r/t chronic hep c and alcoholic cirrhosis -follows with [facility] Hepatology -continue tacrolimus and Bactrim for PCP prophylaxis given liver transplant # hypertension -continue carvedilol # chronic leukopenia -outpatient follow-up with [facility] hematology DVT prophylaxis-compression boots in setting of GI bleed Full code Patient requires inpatient stay at least 2 midnights for management of acute blood loss anemia due to GI bleed requiring blood transfusion, IV fluids, expert consultation with probable EGD and close monitoring of hemodynamics and blood counts Quality Stroke Does the patient have a stroke diagnosis?: No VTE Prior VTE?: No VTE Risk Level:: Medical - moderate - high VTE Device Contraindication: N/A - Device Ordered VTE Drug Contraindication: Treatment Not Indicated
--- NOTE | 2024-01-13 19:56 | PHA.MEDREC ---
Addendum entered by Lisbeth Uriarte RPh 01/13/24 20:18: Reviewed by [facility] Original Note: Pharmacy Consult ? Medication Reconciliation Pharmacy has completed the medication reconciliation. Spoke to patient to confirm med list. Patient stated he normally fills his medications at [facility] , however he just has a liver transplant 4 months ago at [facility] in [place]. he has been filling all his meds from there facility [email or web address] . patient had a list his medications from [employer] on his phone. Utilized the list and double checked with patient how he takes his medications. Patient stated he is no longer on Carvedilol 6.25 mg bid, Gabapentin 300 mg daily, Melatonin 5 mg at bedtime. Patient says he takes Magnesium Oxide 800 mg in the morning, 1,200 mg in the after noon and 1,00 mg at bedtime, Tacrolimus is 4 mg daily and 5 mg at bedtime, Sodium Zirconium Cyclosilicate is QOD alternating days with Urea QOD, Ursodiol is 300 mg bid.
--- NOTE | 2024-01-13 20:00 | PC.NURSE ---
Report taken from Yolanda GASTON, assumed care of pt at 1900. Pt A&Ox3 skin pale warm and dry, respirations even unlabored. VSS. Blood transfusing without difficulty, no s/s transfusion reaction. Pt admitted, awaiting bed assignment. Aware of plan of care.
[2024-01-13] MEDS: Pantoprazole Sodium 40 MG/10 ML VIAL 80 MG IVPUSH (20:52)
[2024-01-13] MEDS: Lactated Ringers 1,000 ML 999 ML IV (20:52)
--- NOTE | 2024-01-13 23:56 | PC.NURSE ---
Pt resting offers no complaints. Second unit of RBCs transfusing without difficulty. VSS. No s/s transfusion reaction. Continues to await bed assignment for admission. NPO.
[2024-01-14] VITALS (8 sets, daily range): BP systolic 108–159; BP diastolic 62–85; PULSE 59–80; RESP 16–20; TEMP 36.4–37; O2SAT 98–100; BMI 24.7
[2024-01-14] MEDS: 0.9 % Sodium Chloride Flush 3 ML SYRINGE IVFLUSH ×2 (00:27→17:23)
--- NOTE | 2024-01-14 02:12 | PC.NURSE ---
Pt resting eyes closed, skin pwd respirations even unlabored. VSS. Continues to await bed assignment for admission. Will continue to monitor.
[2024-01-14 05:00] LABS: Hematocrit 22.2 % (42.0-52.0); Hemoglobin 7.6 g/dl (14.0-18.0); Mean Corpuscular HGB Conc 34.2 g/dl (31.0-36.0); Mean Corpuscular Hemoglobin 31.4 pg (27.0-33.0); Mean Corpuscular Volume 91.7 fL (80.0-98.0); Mean Platelet Volume 10.3 fL (9.4-12.4); Platelet Count 183 X10*3/uL (160-400); Red Blood Count 2.42 X10*6/uL (4.60-5.80); Red Cell Distribution Width 14.6 % (11.0-16.0); White Blood Count 4.2 X10*3/uL (4.8-10.8)
[2024-01-14 05:13] LABS: Anion Gap 15 (12-20); Blood Urea Nitrogen 59 mg/dL (9-16); Calcium 9.7 mg/dL (8.4-10.2); Carbon Dioxide 20 mmol/L (22-29); Chloride 106 mmol/L (96-108); Creatinine Clr Calc Pharmacy 29.7; Estimated Glomerular Filt Rate 26; Glucose Random 103 mg/dL (60-115); Potassium 4.7 mmol/L (3.3-5.1); Sodium 136 mmol/L (135-145)
[2024-01-14 05:24] LABS: Band Neutrophils Percent 8 % (3-5); Eosinophils Absolute Manual 0.2 X10*3/uL (0.0-0.4); Eosinophils Percent Manual 5 % (0-4); Lymphocytes Absolute Manual 0.4 X10*3/uL (1.2-4.9); Lymphocytes Percent Manual 10 % (20-40); Metamyelocytes Percent 1 %; Monocytes Absolute Manual 0.3 X10*3/uL (0.1-1.2); Monocytes Percent Manual 8 % (2-11); Neutrophils Absolute Manual 3.2 X10*3/uL (2.0-8.3); Neutrophils Percent Manual 68 % (45-73)
[2024-01-14 05:28] LABS: Ovalocytes 1+ (5-14) /OIF; Platelet Estimate NORMAL (NORMAL); Platelet Morphology Comment NORMAL; Polychromasia 1+ (0-2) /OIF; RBC Morphology NOTED; Toxic Granulation PRESENT
--- NOTE | 2024-01-14 08:07 | PC.NURSE ---
unit of PRBC retrieved from blood bank by other RN. first 15 minutes infusing at 160mls/hr. pt tolerating well. no signs of complications noted. no sob/wob noted. respirations even/unlabored. pt waiting to be transported upstairs at this time.
--- NOTE | 2024-01-14 08:22 | PC.NURSE ---
pt tolerated first 15 min of PRBC infusion well. no signs of complications noted. pt transitioned to maintenance rate @ 180mls/hr. no sob/wob noted. respirations remain even/unlabored.
[2024-01-14] MEDS: Pantoprazole Sodium 40 MG/10 ML VIAL IVPUSH ×2 (08:25→17:23)
[2024-01-14] MEDS: UrsodioL 300 MG CAPSULE PO (08:40)
[2024-01-14] MEDS: Sulfamethox/Trimeth 400/80 TABLET 1 TAB PO (08:40)
[2024-01-14] MEDS: Magnesium Oxide 400 MG TABLET 800 MG PO ×2 (08:40→17:22)
[2024-01-14] MEDS: Sodium Zirconium Cyclosilicate 10 GM POWD.PACK PO (08:40)
--- NOTE | 2024-01-14 11:53 | P.CNGI_ITS ---
History of Present Illness Data of Consult Service Date: 01/14/24 Requesting physician: Adriana Guan Primary Care Provider: Maxine Victoria MD [facility] Reason for consult: ? GIB This is a 63-year-old gentleman past medical history of hep cirrhosis complicated by liver cancer status post liver transplant 07/30/2023 at [facility] on tacrolimus, who presented to the hospital for anemia and JAVIER. Per patient he was asked to get routine blood work done by his coin purse framer, that showed decrease in hemoglobin to 6 with increase in creatinine to from around 3. He was therefore advised to go to the nearest emergency room. Per [facility] records, his baseline creatinine is around 1.4 and hemoglobin runs typically around 9-10. Patient himself reports feeling well. Does not have any abdominal pain, nausea, vomiting. Reports loose black bowel movements 2 days prior to coming to the hospital, but reports that they were self limiting and had a normal bowel movement earlier today. He had an ERCP within the past week but reports it was uneventful and no abd pain/N/V after procedure. LFTs are normal. He is status post 1 PRBC transfusion. He is also concerned about not receiving his Prograf since admission. Review of Systems 2 Review of Systems: Yes all other systems are reviewed and are negative [facility] Past Medical History Medical History History of alcohol abuse Liver cancer Smoker Cardiac murmur Aortic stenosis Hypertension Chronic hepatitis C Alcoholic cirrhosis Surgical History Surgical History (Updated 01/14/24 @ 13:42 by Wilver Cedeño MD) History of appendectomy H/O colonoscopy History of ablation of neoplasm of liver Social History Social History Household Members: Spouse Housing: Apartment Do you presently have visiting nurse or other home services: No Alcohol intake: former Patient Tobacco Use Status: Former Tobacco user Tobacco use type: Cigarette Cigarettes Per Day: 6 Years Smoked: 20 years service: Yes Meds Allergies Allergy/AdvReac Type Severity Reaction Status Date / Time No Known Allergies Allergy Verified 01/13/24 17:14 Active Medications: Current Medications Acetaminophen (Acetaminophen 325 Mg Tablet) 650 mg PO Q6H PRN PRN Reason: Pain, Mild (Pain Scale 1-3), fever or headache Calcium Carbonate (Calcium Carbonate 750 Mg Tab.Chew) 750 mg PO Q4H PRN PRN Reason: Heartburn Magnesium Hydroxide (Milk Of Magnesia 30 Ml Oral.Susp) 30 ml PO DAILY PRN PRN Reason: Constipation Magnesium Oxide (Magnesium Oxide 400 Mg Tablet) 800 mg PO DAILY [facility] Last Admin: 01/14/24 08:40 Dose: 800 mg Magnesium Oxide (Magnesium Oxide 400 Mg Tablet) 1,200 mg PO BID@1200,1700 [facility] Melatonin (Melatonin 3 Mg Tablet) 6 mg PO BEDTIME PRN PRN Reason: Insomnia Pantoprazole Sodium (Pantoprazole Sodium 40 Mg/10 Ml Vial) 40 mg IVPUSH BID@0630,1630 [facility] Last Admin: 01/14/24 08:25 Dose: 40 mg Sodium Chloride (0.9 % Sodium Chloride Flush 3 Ml Syringe) 3 ml IVFLUSH QSHIFT [facility] Last Admin: 01/14/24 08:25 Dose: Not Given Sodium Zirconium Cyclosilicate (Sodium Zirconium Cyclosilicate 10 Gm Powd.Pack) 10 gm PO Q48H [facility] Last Admin: 01/14/24 08:40 Dose: 10 gm Tacrolimus (Tacrolimus 1 Mg Capsule) 4 mg PO DAILY [facility] Trimethoprim/Sulfamethoxazole (Sulfamethox/Trimeth 400/80 Tablet) 1 tab PO DAILY [facility] Last Admin: 01/14/24 08:40 Dose: 1 tab Ursodiol (Ursodiol 300 Mg Capsule) 300 mg PO BID [facility] Last Admin: 01/14/24 08:40 Dose: 300 mg Home Medications ?Medication ?Instructions ?Recorded ?Confirmed ?Last Taken ?Type magnesium oxide 1,200 mg PO BID@1200,1700 12/09/23 01/13/24 01/13/24 History pantoprazole 40 mg tablet,delayed 40 mg PO DAILY@0630 12/09/23 01/13/24 01/13/24 History release (Protonix) sennosides 8.6 mg-docusate sodium 1 tab-cap PO DAILY PRN Constipation 12/09/23 01/13/24 Unknown History 50 mg capsule (Senna Plus) sodium zirconium cyclosilicate 10 10 g PO Q48H 12/09/23 01/13/24 01/12/24 History gram oral powder packet sulfamethoxazole 400 1 tab PO DAILY 12/09/23 01/13/24 01/13/24 History mg-trimethoprim 80 mg tablet (Bactrim) tacrolimus 1 mg capsule, 4 mg PO DAILY 12/09/23 01/13/24 01/13/24 History immediate-release (Prograf) urea 15 gram/scoop oral powder 15 g PO Q48H 12/09/23 01/13/24 01/13/24 History ursodiol 300 mg capsule 300 mg PO BID 12/09/23 01/13/24 01/13/24 History acetaminophen 500 mg tablet 500 mg PO Q4-6H PRN Pain 01/13/24 01/13/24 Unknown History (Tylenol Extra Strength) magnesium oxide 800 mg PO DAILY 01/13/24 01/13/24 01/13/24 History tacrolimus 5 mg capsule, 5 mg PO BEDTIME 01/13/24 01/13/24 01/13/24 History immediate-release (Prograf) Physical Exam 2 Vital Signs: Vital Signs: Last Vital Signs Temp 97.9 F 01/14/24 11:05 Pulse 59 01/14/24 11:05 Resp 18 01/14/24 11:05 BP 156/85 H 01/14/24 11:05 Pulse Ox 98 01/14/24 11:05 O2 Del Method Room Air 01/14/24 11:05 BMI result Body Mass Index 24.7 Elderly male No acute distress Nonicteric No overt respiratory distress Abdomen soft, nontender, nondistended Mild peripheral edema Results Labs 01/14/24 04:40 01/14/24 04:40 Labs: Short CBC 01/13/24 01/14/24 Range/Units 17:28 04:40 WBC 3.6 L 4.2 L (4.8-10.8) X10*3/uL Hgb 6.1 L* D 7.6 L D (14.0-18.0) g/dl Hct 18.0 L* D 22.2 L D (42.0-52.0) % Plt Count 209 D 183 (160-400) X10*3/uL BMP 01/13/24 01/14/24 17:28 04:40 Sodium 135 136 Potassium 4.5 4.7 Chloride 104 106 Carbon Dioxide 21 L 20 L BUN 70 H 59 H Creatinine 3.18 H 2.49 H Calcium 9.7 D 9.7 Liver Function 01/13/24 Range/Units 17:28 Total Bilirubin 0.6 (0.0-1.0) mg/dL AST 14 (5-37) U/L ALT 20 (0-40) U/L Alkaline Phosphatase 50 (39-117) U/L Albumin 3.9 (3.5-5.0) g/dL Assessment and Plan (1) Anemia: Status: Acute (2) Liver transplant status: Status: Acute (3) UGIB (upper gastrointestinal bleed): Status: Acute (4) JAVIER (acute kidney injury): Status: Acute Plan DDx for normocytic anemia includes bleeding meliton given report of melena prior to admission vs chronic disease vs inflammatory vs hemolytic. Patient reports that his coin purse framer is planning a bone marrow biopsy in the next 1-2 weeks. Plan: - consider hemolysis workup - continue PPI - if patient does not get transferred to [place], will schedule him for an upper endoscopy tomorrow. Please keep him NPO after midnight. - please also resume prograf. Can resume at least half the dose until results of tacrolevels available. Thank you for allowing me to participate in his care. Please do not hesitate to reach out for any questions or concerns. Procedures Date of Service Date of Service: 01/14/24
--- NOTE | 2024-01-14 11:54 | P.PNIM_ITS ---
Subjective Subjective Date of Service: 01/14/24 Interval History: seen and evaluated this morning Hb 7.6 after 2 units of PRBCs no evidence of bleeding Review of Systems Review of Systems: Yes all other systems are reviewed and are negative Physical Exam 2 Vital Signs: Vital Signs: Last Vital Signs Temp 97.9 F 01/14/24 11:05 Pulse 59 01/14/24 11:05 Resp 18 01/14/24 11:05 BP 156/85 H 01/14/24 11:05 Pulse Ox 98 01/14/24 11:05 O2 Del Method Room Air 01/14/24 11:05 BMI result Body Mass Index 24.7 Const: Other: Constitutional : Awake, interactive, not in distress Neck : Normal inspection, Supple Cardiovascular : RRR, no JVP, no lower extremity edema Respiratory : good bilateral air entry, no crackles, wheezes or rhonchi Gastrointestinal: soft, lax, Normal bowel sounds, Non tender Skin : Warm, Dry Neurological : Alert & oriented x3, No focal deficit Objective Data Active Medications Acetaminophen (Acetaminophen 325 Mg Tablet) 650 mg PO Q6H PRN PRN Reason: Pain, Mild (Pain Scale 1-3), fever or headache Calcium Carbonate (Calcium Carbonate 750 Mg Tab.Chew) 750 mg PO Q4H PRN PRN Reason: Heartburn Magnesium Hydroxide (Milk Of Magnesia 30 Ml Oral.Susp) 30 ml PO DAILY PRN PRN Reason: Constipation Magnesium Oxide (Magnesium Oxide 400 Mg Tablet) 800 mg PO DAILY [facility] Last Admin: 01/14/24 08:40 Dose: 800 mg Documented By: ADALBERTO Magnesium Oxide (Magnesium Oxide 400 Mg Tablet) 1,200 mg PO BID@1200,1700 [facility] Melatonin (Melatonin 3 Mg Tablet) 6 mg PO BEDTIME PRN PRN Reason: Insomnia Pantoprazole Sodium (Pantoprazole Sodium 40 Mg/10 Ml Vial) 40 mg IVPUSH BID@0630,1630 [facility] Last Admin: 01/14/24 08:25 Dose: 40 mg Documented By: CHANTALE Sodium Chloride (0.9 % Sodium Chloride Flush 3 Ml Syringe) 3 ml IVFLUSH QSHIFT [facility] Last Admin: 01/14/24 08:25 Dose: Not Given Documented By: CHANTALE Non-Admin Reason: IV Running Sodium Zirconium Cyclosilicate (Sodium Zirconium Cyclosilicate 10 Gm Powd.Pack) 10 gm PO Q48H [facility] Last Admin: 01/14/24 08:40 Dose: 10 gm Documented By: ADALBERTO Tacrolimus (Tacrolimus 1 Mg Capsule) 4 mg PO DAILY [facility] Trimethoprim/Sulfamethoxazole (Sulfamethox/Trimeth 400/80 Tablet) 1 tab PO DAILY [facility] Last Admin: 01/14/24 08:40 Dose: 1 tab Documented By: ADALBERTO Ursodiol (Ursodiol 300 Mg Capsule) 300 mg PO BID [facility] Last Admin: 01/14/24 08:40 Dose: 300 mg Documented By: ADALBERTO Labs 01/14/24 04:40 01/14/24 04:40 Labs: Laboratory Results - last 24 hr 01/13/24 01/14/24 17:28 04:40 MCV 95.2 91.7 MCH 32.3 31.4 MCHC 33.9 34.2 RDW 15.1 14.6 Plt Count 209 D 183 MPV 10.6 10.3 Immature Gran % (Auto) 4.7 H Cancelled Neut % (Auto) 60.4 Cancelled Lymph % (Auto) 13.3 L Cancelled [place] % (Auto) 15.8 H Cancelled Eos % (Auto) 5.8 H Cancelled Baso % (Auto) 0.0 Cancelled Lymph # (Auto) 0.5 L Cancelled [place] # (Auto) 0.6 Cancelled Eos # (Auto) 0.2 Cancelled Baso # (Auto) 0.0 Cancelled Abs Immat Gran (auto) 0.17 H Cancelled Absolute Neuts (auto) 2.2 Cancelled Absolute Nucleated RBC 0.000 0.000 Nucleated RBC % (auto) 0.0 0.0 Neutrophils % (Manual) 68 Band Neutrophils % 8 H Lymphocytes % (Manual) 10 L Monocytes % (Manual) 8 Eosinophils % (Manual) 5 H Metamyelocytes % 1 Abs Neuts (Manual) 3.2 Lymphocytes # (Manual) 0.4 L Monocytes # (Manual) 0.3 Eosinophils # (Manual) 0.2 Toxic Granulation PRESENT Platelet Estimate NORMAL Plt Morphology Comment NORMAL RBC Morphology NOTED Polychromasia 1+ (0-2) Ovalocytes 1+ (5-14) Smear Path Review Cancelled PT 15.8 H INR 1.3 H Anion Gap 15 15 Estim Creat Clear Calc 23.3 29.7 Estimated GFR 20 26 Random Glucose 145 H 103 Calcium 9.7 D 9.7 Total Bilirubin 0.6 AST 14 ALT 20 Alkaline Phosphatase 50 Troponin I High Sens 3.7 Total Protein 7.6 Albumin 3.9 Lipase 16 Blood Type O Positive Antibody Screen NEGATIVE Crossmatch See Detail Assessment and Plan (1) Anemia: Status: Acute (2) UGIB (upper gastrointestinal bleed): Status: Acute (3) JAVIER (acute kidney injury): Status: Acute Plan 63-year-old male with history of aortic stenosis, hypertension, history of alcoholic cirrhosis, history of hepatitis-C, liver cancer s/p ablation therapy and s/p liver transplant 07/2023 following with [facility] hepatology admitted for acute blood loss anemia due to GI bleed. #acute blood loss anemia due to GI bleed Hb improved to 7.6 after 2 units to give a 3rd unit check occult stool, reported dark stools IV PPI GI following; Clear liquids, NPO after midnight for EGD cardiac monitoring follow h/h had ERCP performed at [facility] last week for stent removal- records requested has chronic normocytic anemia at baseline, follows with [facility] # acute kidney injury on CKD3 due to hypoperfusion from anemia? Bactrim ? Cr improved to 2.5 Tacrolimus levels usually controlled around 4, repeat levels total 3 units PRBCs follow renal function/lytes Nephrology consult #H/o of liver transplant with liver cancer r/t chronic hep c and alcoholic cirrhosis follows with [facility] Hepatology continue tacrolimus and Bactrim for PCP prophylaxis given liver transplant # hypertension continue carvedilol # chronic leukopenia outpatient follow-up with [facility] hematology DVT prophylaxis compression boots in setting of GI bleed Full code Patient requires inpatient stay overnight for management of acute blood loss anemia due to GI bleed requiring blood transfusion, IV fluids, expert consultation with probable EGD and close monitoring of hemodynamics and blood counts Quality Stroke Does the patient have a stroke diagnosis?: No VTE Prior VTE?: No VTE Risk Level:: Medical - moderate - high VTE Device Contraindication: N/A - Device Ordered VTE Drug Contraindication: Treatment Not Indicated
[2024-01-14] MEDS: Magnesium Oxide 400 MG TABLET 1200 MG PO ×2 (12:17→17:24)
--- NOTE | 2024-01-14 12:41 | MHC.CM.PN ---
Pt. lives with his (she is visiting [place] at this time). He said that his son is his HCP, copy requested. He is independent, no home health services or medical equipment. Pt may be transferring to [facility] in [place]. CT. CM to follow and assist as needed.
--- NOTE | 2024-01-14 13:42 | PM.DS ---
DS: Providers Provider Date of Service: 01/14/24 Date of admission: 01/13/24 19:38 Primary care physician: Maxine Victoria MD Consults: 01/13/24 19:48 Consult to Gastroenterology Routine Consulting Provider: Zaynab Pena Reason for consultation: gi bleed 01/14/24 09:44 Consult to Nephrology Routine Consulting Provider: [facility] Reason for consultation: JAVIER on CKD in Liver transplant patient. DS: Diagnosis Discharge Diagnosis (1) Anemia: Status: Acute (2) UGIB (upper gastrointestinal bleed): Status: Acute (3) JAVIER (acute kidney injury): Status: Acute (4) Liver transplant status: Status: Acute DS: Summary Hospital Course Hospital Course: Admission note HPI 63-year-old male with history of aortic stenosis, hypertension, alcoholic cirrhosis, hepatitis-C, liver cancer s/p ablation therapy and s/p liver transplant 07/2023 following with [facility] hepatology presented to the ED earlier today at the recommendation of his hematology team ([facility]) due to low blood counts. He states he had blood work earlier today that had been routinely ordered and was found to be significantly anemic from baseline. He does state that he has had several episodes of melena over the last 2 days. Denies anyfevers, chills, abd pain, n/v/d, brbpr, urinary symptoms, cough, recent illness. He does endorse chronic MORSE and positional lightheadedness. No chest pains or syncope. Since arrival, VSS. He has a chronic leukopenia with WBC 3.6, slightly increased from baseline, RBC 1.89, H/H 6.1/18.0% (was 9.1/25.4% on 12/29). Platelets 209. Creatinine 3.18, baseline around 1.45. BUN 70. Electrolyte levels normal. Hepatic function within normal limits. EKG shows NSR, rate [address]/T-wave abnormality, unchanged from prior EKGs. In the ED, has received 1 unit packed red blood cells. He will be admitted for further management of acute blood loss anemia due to GI bleed. He is not on any blood thinners and denies NSAID use. Of note, pt states that he had an appt with his medicare interviewer at [place] with EGD performed last week- records requested. Hospital course # acute on chronic blood loss anemia due to likely GI bleed Hb improved to 7.6 after 2 units. to give a 3rd unit with goal >8. check occult stool, reported dark stools . Continue IV PPI. GI consulted and recommended Clear liquids, NPO after midnight for EGD on 01/15/2024. He Had ERCP performed at [facility] last week for stent removal- records requested has chronic normocytic anemia at baseline, follows with [facility]. # acute kidney injury on CKD3 due to hypoperfusion from anemia? Bactrim ? Cr improved to 2.5 from almost 3 at admission. baseline 1.5-1.7. Tacrolimus levels usually controlled around 4, repeat levels Pending. Nephrology consult but did not see the patient yet. #H/o of liver transplant with liver cancer r/t chronic hep c and alcoholic cirrhosis follows with [facility] Hepatology. Nara Quintero, transplant coord. at [facility] in [place] advised to transfer to [facility]. Continue tacrolimus and Bactrim for PCP prophylaxis given liver transplant. Discharge plan Transfer to [facility] for further work up and management by dr Woodward. Time Attestation Discharge Coordination Time (in mins): 90 Quality: Safe Use of Opioids Does Pt have an Active Cancer Diagnosis on the Problem List?: No Quality: Stroke Does the patient have a stroke diagnosis?: No Physical Exam Vital Signs: Vital Signs: Last Vital Signs Temp 97.9 F 01/14/24 11:05 Pulse 59 01/14/24 11:05 Resp 18 01/14/24 11:05 BP 156/85 H 01/14/24 11:05 Pulse Ox 98 01/14/24 11:05 O2 Del Method Room Air 01/14/24 11:05 BMI result Body Mass Index 24.7 Const: Other: Constitutional : Awake, interactive, not in distress Neck : Normal inspection, Supple Cardiovascular : RRR, no JVP, no lower extremity edema Respiratory : good bilateral air entry, no crackles, wheezes or rhonchi Gastrointestinal: soft, lax, Normal bowel sounds, Non tender Skin : Warm, Dry Neurological : Alert & oriented x3, No focal deficit DS: Data Data Completed and Pending Labs on day of discharge: Laboratory Results - last 24 hr 01/13/24 01/14/24 17:28 04:40 WBC 3.6 L 4.2 L RBC 1.89 L D 2.42 L D Hgb 6.1 L* D 7.6 L D Hct 18.0 L* D 22.2 L D MCV 95.2 91.7 MCH 32.3 31.4 MCHC 33.9 34.2 RDW 15.1 14.6 Plt Count 209 D 183 MPV 10.6 10.3 Immature Gran % (Auto) 4.7 H Cancelled Neut % (Auto) 60.4 Cancelled Lymph % (Auto) 13.3 L Cancelled [place] % (Auto) 15.8 H Cancelled Eos % (Auto) 5.8 H Cancelled Baso % (Auto) 0.0 Cancelled Lymph # (Auto) 0.5 L Cancelled [place] # (Auto) 0.6 Cancelled Eos # (Auto) 0.2 Cancelled Baso # (Auto) 0.0 Cancelled Abs Immat Gran (auto) 0.17 H Cancelled Absolute Neuts (auto) 2.2 Cancelled Absolute Nucleated RBC 0.000 0.000 Nucleated RBC % (auto) 0.0 0.0 Neutrophils % (Manual) 68 Band Neutrophils % 8 H Lymphocytes % (Manual) 10 L Monocytes % (Manual) 8 Eosinophils % (Manual) 5 H Metamyelocytes % 1 Abs Neuts (Manual) 3.2 Lymphocytes # (Manual) 0.4 L Monocytes # (Manual) 0.3 Eosinophils # (Manual) 0.2 Toxic Granulation PRESENT Platelet Estimate NORMAL Plt Morphology Comment NORMAL RBC Morphology NOTED Polychromasia 1+ (0-2) Ovalocytes 1+ (5-14) Smear Path Review Cancelled PT 15.8 H INR 1.3 H Sodium 135 136 Potassium 4.5 4.7 Chloride 104 106 Carbon Dioxide 21 L 20 L Anion Gap 15 15 BUN 70 H 59 H Creatinine 3.18 H 2.49 H Estim Creat Clear Calc 23.3 29.7 Estimated GFR 20 26 Random Glucose 145 H 103 Calcium 9.7 D 9.7 Total Bilirubin 0.6 AST 14 ALT 20 Alkaline Phosphatase 50 Troponin I High Sens 3.7 Total Protein 7.6 Albumin 3.9 Lipase 16 Blood Type O Positive Antibody Screen NEGATIVE Crossmatch See Detail Discharge Plan Discharge Anticipated Discharge Date/Time: 01/14/24 13:38 Patient Disposition: Xfer Acute Care Hospital Discharge Diagnosis: Acute kidney injury Acute on chronic anemia Referrals: Maxine Victoria MD [Primary Care Provider] - 1 Week Discharge Medications: Continued sulfamethoxazole-trimethoprim [Bactrim] 400-80 mg Tablet 1 tab PO DAILY pantoprazole [Protonix] 40 mg Tablet,Delayed Release (Dr/Ec) 40 mg PO DAILY@0630 ursodiol 300 mg Capsule 300 mg PO BID tacrolimus [Prograf] 1 mg Capsule 4 mg PO DAILY magnesium oxide 400 mg magnesium Tablet 1,200 mg PO BID@1200,1700 Senna Plus 8.6-50 mg Capsule 1 tab-cap PO DAILY PRN (Reason: Constipation) urea 15 gram/scoop Powder 15 g PO Q48H Rx Instructions: Alternating days with Sodium Zirconium Cyclosilicate sodium zirconium cyclosilicate 10 gram Powder In Packet 10 g PO Q48H Rx Instructions: Alternating days with Urea 15g tacrolimus [Prograf] 5 mg Capsule 5 mg PO BEDTIME magnesium oxide 400 mg magnesium Tablet 800 mg PO DAILY acetaminophen [Tylenol Extra Strength] 500 mg Tablet 500 mg PO Q4-6H PRN (Reason: Pain) Diet: Advance to usual diet Activity on Discharge: As tolerated Stand Alone Forms: Patient Portal Discharge page Print Language: Trinidadian Care Plan Goals: Transfer to [facility] for further work up and management. Health Concerns: Read below Plan of Treatment: Read below Assessment: Read below
--- NOTE | 2024-01-14 15:41 | MHC.CM.PN ---
CM received a call from Irene at the [facility] @ [phone], Ext. [phone], who indicated that [facility] will be here at 6PM to transport Patient to the [facility] in [facility]; MD & RN have been made aware.
[2024-01-15 08:54] LABS: Tacrolimus Prograf 5.7 mcg/L
== END 2024-01-14 20:00 | disposition short-term general hospital (02) | DRG 378 ==
LOC: HO.ED 18:42 → HO.EDOVER 19:47 → HO.IMC 01-14 07:18
PROVIDERS: Physician Assistant; Admitting Provider Physician Assistant; Emergency Provider Emergency Medicine; PCP Internal Medicine; Visit Provider Student in an Organized Health Care Education/Training Program
DX: K92.2 Gastrointestinal hemorrhage, unspecified (principal); D62 Acute posthemorrhagic anemia; N17.9 Acute kidney failure, unspecified; Z94.4 Liver transplant status; I12.9 Hypertensive chronic kidney disease with stage 1 through stage 4 chronic kidney disease, or unspecified chronic kidney disease; D63.1 Anemia in chronic kidney disease; B18.2 Chronic viral hepatitis C; N18.30 Chronic kidney disease, stage 3 unspecified; Z85.05 Personal history of malignant neoplasm of liver; Z85.038 Personal history of other malignant neoplasm of large intestine; Z87.891 Personal history of nicotine dependence; Z79.621 Long term (current) use of calcineurin inhibitor; Z79.899 Other long term (current) drug therapy
CPT/HCPCS: 36415; 80048; 80053; 80197; 83690; 84484; 85007; 85025; 85027; 85610; 86850; 86900; 86901; 86923; 93005; 99285; J2470; J7120; P9016

== ENCOUNTER → 2024-01-13 19:38 | Outpatient (BNV) | payer OTHER, SELFPAY | PROVIDERS: Admitting Provider Physician Assistant; Emergency Provider Emergency Medicine; PCP Internal Medicine; Visit Provider Internal Medicine | DX: D64.9 Anemia, unspecified (principal); Z94.4 Liver transplant status; K92.2 Gastrointestinal hemorrhage, unspecified; N17.9 Acute kidney failure, unspecified | CPT/HCPCS: 99222 ==

== ENCOUNTER → 2024-01-13 19:38 | Outpatient (BNV) | payer OTHER, SELFPAY | PROVIDERS: Admitting Provider Physician Assistant; Emergency Provider Emergency Medicine; PCP Internal Medicine; Visit Provider Physician Assistant | DX: N17.9 Acute kidney failure, unspecified (principal); K92.2 Gastrointestinal hemorrhage, unspecified; D62 Acute posthemorrhagic anemia | CPT/HCPCS: 99223; 99239 ==

== ENCOUNTER 2024-01-19 15:08 | Outpatient (AMB) | payer OTHER, SELFPAY ==
[2024-01-19 15:12] VITALS: BP 120/68; PULSE 87; O2SAT 100; BMI 24.3
--- NOTE | 2024-01-19 15:12 | A.OFFVIS_ITS ---
Vital Signs 01/19/24 15:12 Height 5 ft 9 in Weight 164 lb 3.91 oz BMI 24.3 BP 120/68 Blood Pressure Location Lt brachial Position Sitting Pulse 87 Pulse Source Pulse Oximeter Pulse Oximetry (%) 100 Oxygen Delivery Method Room Air Intake Visit Reasons: pulmonary nodule [employer] Required: No Allergies No Known Allergies Allergy (Verified 01/19/24 15:14) HPI Comments Details: The patient is here for pulmonary evaluation. The patient is a 64-year-old gentleman, , with a history of There cirrhosis and pulmonary nodule. Apparently was evaluated within the [facility] system for a left-sided pulmonary nodule. He did undergo surgery 04/30/2023 where it was resected. The details of the surgery are not available. The pathology was consistent with adenocarcinoma. The surgery was with curative intent. Afterwards the patient continued having issues with liver failure due to his liver cirrhosis. He did finally undergo in liver transplantation about 5 months ago. Surgery well. Although postoperatively patient did have significant bleeding. He was briefly admitted to the [facility] beginning of January was found to be significantly anemic. Was transferred to his transplant hospital. His anemia was worked up. Currently his stable. His shortness breath has improved dramatically after his anemia was treated. During the office visit we did go for brief walking oximetry and the pulse ox is actually 100% throughout the ambulation. He was not having any significant dyspnea symptoms. Although the patient did have an elevated heart rate about 115 with minimal activity. We walked him on 300 ft. As far as respiratory exam the patient does not have any evidence of wheezing. He does not use any inhalers at this time which is good. The patient will continue to be monitor closely by his transplant team and also with the [facility] system. He did undergo a repeat CT scan of the chest at [facility] I believe sometime in the last 2 weeks. Will request a CT scan at this time. Through the [facility] system he will have serial CT scans based on the protocol after lung cancer diagnosis. Therefore, will hold off on any additional imaging at [place] at this time. He did have a CT scan of the chest from 04/30/2023 that we personally reviewed this was before surgery demonstrating the pulmonary nodule. The patient also had cystic lung disease and some emphysema. [facility] Medical History (Updated 01/19/24 @ 21:58 by Junior Camacho MD) Dyspnea Lung cancer History of alcohol abuse Liver cancer Smoker Cardiac murmur Aortic stenosis Hypertension Chronic hepatitis C Alcoholic cirrhosis Surgical History (Updated 01/14/24 @ 13:42 by Wilver Cedeño MD) History of appendectomy H/O colonoscopy History of ablation of neoplasm of liver Social History Household Members: Spouse Housing: Apartment Do you presently have visiting nurse or other home services: No Alcohol intake: former Patient Tobacco Use Status: Former Tobacco user Tobacco use type: Cigarette Cigarettes Per Day: 6 Years Smoked: 20 years service: Yes Review of Systems Const Denies fatigue, Denies fever(s), Denies night sweats, Denies poor appetite and Denies weight loss ENT Reports no additional complaints Card Reports palpitations and Reports dyspnea on exertion Resp Reports dyspnea on exertion and Denies wheezing GI Reports as per HPI Musc Reports no additional complaints Skin/Breast Denies pruritus, Denies lesions, Denies rash and Denies jaundice Neuro Denies Abnormal speech present Endo Denies fatigue and Reports palpitations Alphonso/Lymph Denies lymphadenopathy Aller/Immun Denies wheezing Physical Exam Vital Signs: Last Vital Signs Pulse 87 01/19/24 15:12 BP 120/68 01/19/24 15:12 Pulse Ox 100 01/19/24 15:12 Oxygen Delivery Method Room Air 01/19/24 15:12 BMI result Body Mass Index 24.3 Const General: comfortable HEENT Head: Yes normocephalic Neck Neck: Yes supple Chest Chest palpation & inspection: normal inspection of the chest Resp Effort & Inspection: normal respiratory effort Auscultation: clear to auscultation bilaterally Cardio Heart sounds: S1 normal heart sound present and S2 normal heart sound present GI Palpation (GI): Soft to palpation Skin General skin exam: no rashes or lesions noted Neuro Speech: No Abnormal speech present Extrem General: Yes no clubbing, cyanosis or edema Assessment & Plan Assessment & Plan (1) Lung cancer: Code(s): C34.90 - Malignant neoplasm of unspecified part of unspecified bronchus or lung Category: Medical Qualifiers: Laterality: right Lung location: unspecified part of lung Qualified Code(s): C34.91 - Malignant neoplasm of unspecified part of right bronchus or lung (2) Liver transplant status: Code(s): Z94.4 - Liver transplant status Category: Surgical (3) Anemia: Code(s): D64.9 - Anemia, unspecified Category: Medical Qualifiers: Anemia type: unspecified type Qualified Code(s): D64.9 - Anemia, unspecified (4) Dyspnea: Code(s): R06.00 - Dyspnea, unspecified Category: Medical Qualifiers: Dyspnea type: dyspnea on exertion Qualified Code(s): R06.09 - Other forms of dyspnea Plan monitor Hb Serial CT chest, will request recent CT chest from [facility] PFTs F/U 6 months Orders: Orders PFT pulmonary function test 5 Months C34.90 - Malignant neoplasm of unspecified part of unspecified bronchus or lung Coding Level of Care Code New Pt Level 4 (80391) Diagnoses Malignant neoplasm of right lung, unspecified part of lung C34.91 Laterality: right Lung location: unspecified part of lung Liver transplant status Z94.4 Anemia, unspecified type D64.9 Anemia type: unspecified type Dyspnea on exertion R06.09 Dyspnea type: dyspnea on exertion Time Spent (min) 35
== END 2024-01-19 15:42 | disposition home or self-care (01) ==
PROVIDERS: PCP Internal Medicine; Referring Provider Internal Medicine; Visit Provider Hospitalist
DX: C34.91 Malignant neoplasm of unspecified part of right bronchus or lung (principal); Z94.4 Liver transplant status; D64.9 Anemia, unspecified; R06.09 Other forms of dyspnea
CPT/HCPCS: 99204

== ENCOUNTER → 2024-01-19 15:08 | Outpatient (BNVA) | payer OTHER, SELFPAY | PROVIDERS: PCP Internal Medicine; Referring Provider Internal Medicine; Visit Provider Hospitalist | DX: D64.9 Anemia, unspecified (principal); C34.91 Malignant neoplasm of unspecified part of right bronchus or lung; R06.09 Other forms of dyspnea; Z94.4 Liver transplant status | CPT/HCPCS: 99202 ==

== ENCOUNTER 2024-03-02 13:53 | Emergency (ER) | payer OTHER, SELFPAY ==
[2024-03-02] VITALS (9 sets, daily range): BP systolic 118–143; BP diastolic 70–79; PULSE 68–82; RESP 12–20; TEMP 36.5–37.1; O2SAT 99–100; BMI 24.9
--- NOTE | 2024-03-02 14:53 | ED.GENADULT ---
HPI - General Adult General Chief complaint: Recheck/Abnormal Lab/Rx Stated complaint: Sent by for transfusion Time Seen by Provider: 03/02/24 15:57 Source: patient Mode of arrival: ambulatory Limitations: no limitations History of Present Illness HPI narrative: Patient is a 64-year-old male who presents emergency department reporting that he requires a blood transfusion. He states that he was contacted by his doctor at the [facility] today and was advised that his hemoglobin was low and would require transfusion. He reports no symptomatic since states ?I feel great?. Reports that approximately 3 weeks ago he had an inpatient stay at [facility] requiring 6 transfusions overall 1 week. Due to hemoglobin similarly at a level of 5 and subsequently increased to about 8.5. He reports he had multiple workups including bone marrow biopsy, ultimately they thought that potentially the anemia was due to 1 of his ?liver medications? as he underwent liver transplant approximately 6 months ago at [facility] in [facility] due to cirrhosis. He denies dizziness, lightheadedness, shortness of breath, difficulty breathing, hematuria, hematochezia, melena, any sources of active bleeding. Related Data Home Medications ?Medication ?Instructions ?Recorded ?Confirmed magnesium oxide 1,200 mg PO BID@1200,1700 12/09/23 01/13/24 pantoprazole 40 mg tablet,delayed 40 mg PO DAILY@0630 12/09/23 01/13/24 release (Protonix) sennosides 8.6 mg-docusate sodium 1 tab-cap PO DAILY PRN Constipation 12/09/23 01/13/24 50 mg capsule (Senna Plus) sodium zirconium cyclosilicate 10 10 g PO Q48H 12/09/23 01/13/24 gram oral powder packet tacrolimus 1 mg capsule, 4 mg PO DAILY 12/09/23 01/13/24 immediate-release (Prograf) urea 15 gram/scoop oral powder 15 g PO Q48H 12/09/23 01/13/24 ursodiol 300 mg capsule 300 mg PO BID 12/09/23 01/13/24 acetaminophen 500 mg tablet 500 mg PO Q4-6H PRN Pain 01/13/24 01/13/24 (Tylenol Extra Strength) magnesium oxide 800 mg PO DAILY 01/13/24 01/13/24 tacrolimus 5 mg capsule, 5 mg PO BEDTIME 01/13/24 01/13/24 immediate-release (Prograf) Allergies Allergy/AdvReac Type Severity Reaction Status Date / Time No Known Allergies Allergy Verified 03/02/24 14:52 Review of Systems Review of Systems: Yes all other systems are reviewed and are negative [facility] Past Medical History Attestation statement: The following information was validated with the patient. Source: old records reviewed Medical History Dyspnea Lung cancer History of alcohol abuse Liver cancer Smoker Cardiac murmur Aortic stenosis Hypertension Chronic hepatitis C Alcoholic cirrhosis Surgical History History of appendectomy H/O colonoscopy History of ablation of neoplasm of liver Social History Social History Household Members: Spouse Housing: Apartment Do you presently have visiting nurse or other home services: No Alcohol intake: former Patient Tobacco Use Status: Former Tobacco user Tobacco use type: Cigarette Cigarettes Per Day: 6 Years Smoked: 20 years Smoked in Last 30 Days: No Use of substances other than those prescribed or required for medical reasons: No Advance Directives: No Advance Directives Information Provided: Yes Do you have a plan to hurt others: No Plan service: Yes Physical Exam ED Vital Signs: Vital Signs - 24 hr 03/02/24 14:50 03/02/24 16:05 03/02/24 16:56 Temperature 97.7 F 98.1 F Pulse Rate 82 78 68 Respiratory Rate 16 12 20 Blood Pressure 121/70 126/79 128/74 Pulse Oximetry 100 100 99 Oxygen Delivery Method Room Air Room Air Room Air 03/02/24 17:16 03/02/24 17:35 03/02/24 19:10 Temperature 98.1 F 98.3 F 98.3 F Pulse Rate 71 71 68 Respiratory Rate 12 18 18 Blood Pressure 118/72 123/74 123/73 Pulse Oximetry 99 Oxygen Delivery Method Room Air 03/02/24 21:09 03/02/24 21:38 03/02/24 21:54 Temperature 98 F 98.5 F 98.7 F Pulse Rate 70 74 68 Respiratory Rate 20 20 20 Blood Pressure 143/74 H 132/71 122/70 Pulse Oximetry Oxygen Delivery Method 03/03/24 01:01 Temperature 98.6 F Pulse Rate 63 Respiratory Rate 16 Blood Pressure 134/77 Pulse Oximetry Oxygen Delivery Method BMI result Body Mass Index 24.9 Appearance: Alert.?Oriented to person, place and time. No acute distress.?Normal affect. Eyes: Pupils equal, round and reactive to light.? ENT: Pharynx normal.?? Neck: Normal inspection.? Neck supple.?? CVS: Heart sounds normal. Normal heart rate and rhythm.? Pulses normal.?? Respiratory: No respiratory distress.? Lung sounds clear to auscultation bilaterally?? Abdomen: Soft and non-tender. Normoactive bowel sounds. ? Skin: Skin warm and dry.? Normal skin color.? ?? Extremities: No lower extremity edema.? No calf ttp? Neuro: Moves all extremities spontaneously. Sensation intact bilaterally. CN II-XII intact. No focal neuro deficits. Ambulates with normal steady gait. Course Course Course Narrative: This is a rapid medical exam performed by Maria Eugenia Jacobs PA-C. The patient is a 64-year-old male with a history of chronic anemia, requiring frequent transfusions, presents given need for transfusion. Patient was sent by primary care. Patient is asymptomatic, denies chest pain, shortness of breath or dizziness. He is not actively bleeding, denies active GI bleed. We will be ordering screening labs, type and screen an INR. The patient is stable, he can return to the waiting room pending the remainder of his assessment. Reevaluation(s) Reevaluation #1: I spoke with Dr. 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 Reports that he was most recently seen at their Hematology office on 08/17/2023 with recommendation sent to his primary care doctor for him to get a local health aid so that he may received weekly transfusions of PRBCs as needed in addition to ego. Reports that he received EPO on 02/10/2024 and 02/16/2024, was additionally given a 100 mcg dosage to administer at home on 02/24/2024, has an outpatient follow-up appointment on 03/15/2024 At this time, he remains asymptomatic, is receiving PRBC transfusion. Will plan to repeat CBC after transfusion, and discharge home so long as he has no complications arise and he will be given referral here Time: 19:12 Reevaluation #2: Repeat CBC post transfusion 2 units PRBC H&H 7.3/21.1 Time: 01:28 Medical Decision Making Medical Decision Making [facility] Narrative: Patient is a 64-year-old male with past medical history of aortic stenosis, hypertension, alcoholic cirrhosis, hepatitis-C, liver cancer S/P ablation therapy and liver transplant in July of 2023 at [facility], following [facility] due to his ongoing anemia. As per HPI, advised to presents emergency department for transfusion given his anemia, no active bleeding. Review of medical records from our hospital he was admitted in January of 2024 for an upper GI bleed with several episodes of melena, received 3 units of PRBC's here and was ultimately transferred to [facility]. Reviewed risks and complications with transfusion PRBC, transfusion consent form was signed by patient occult stool is negative today. No reports of active bleeding. On review of CBC, has leukopenia 2.0, RBC is 1.92, hemoglobin 5.9 hematocrit 17 7, no thrombocytopenia. INR of 1.1, PT 13.2. No significant electrolyte derangement. BUN is consistent with baseline as is creatinine no evidence of JAVIER. She has within normal range. Differential Diagnosis Differential Diagnoses: The differential diagnosis associated with the presentation includes (Chronic anemia, GIB) Admission/Observation Consideration of admission/observation: Escalation of care including admission/observation considered (See narrative above in course narrative for further detail) Patient placed in physician observation at 17:00 on 03/02/2024, patient observation while he received 2 units PRBC transfusion, attempting to obtain records from his health aid office as per narrative. At this time he is asymptomatic, do not have acute indication for hospital admission, has acute on chronic anemia Consult Healthcare Provider Management of the patient was discussed with: Licensing Engineer Attempting to obtain contact with [facility] where he was previously transferred to to determine what additional workup was performed after his transfer from our hospital. Currently he is asymptomatic without evidence of active bleeding. Lab Data [facility] Lab Attestation statement: I reviewed the patient's lab results. (See narrative above) 03/03/24 00:58 03/02/24 15:26 Labs: Lab Results 03/02/24 03/02/24 03/03/24 Range/Units 15:26 17:57 00:58 WBC 2.0 L 2.4 L (4.8-10.8) X10*3/uL RBC 1.92 L D 2.35 L D (4.60-5.80) X10*6/uL Hgb 5.9 L* D 7.3 L D (14.0-18.0) g/dl Hct 17.7 L* D 21.1 L (42.0-52.0) % MCV 92.2 89.8 (80.0-98.0) fL MCH 30.7 31.1 (27.0-33.0) pg MCHC 33.3 34.6 (31.0-36.0) g/dl RDW 18.6 H 17.2 H (11.0-16.0) % Plt Count 185 180 (160-400) X10*3/uL MPV 10.1 10.5 (9.4-12.4) fL Immature Gran % (Auto) 1.0 H 1.2 H (0.0-0.4) % Neut % (Auto) 32.5 L 28.3 L (45-73) % Lymph % (Auto) 26.1 26.6 (20-40) % [place] % (Auto) 28.1 H 26.1 H (2-11) % Eos % (Auto) 11.8 H 17.4 H (0-4) % Baso % (Auto) 0.5 0.4 (0-2) % Lymph # (Auto) 0.5 L 0.6 L (1.2-4.9) X10*3/uL [place] # (Auto) 0.6 0.6 (0.1-1.2) X10*3/uL Eos # (Auto) 0.2 0.4 (0.0-0.4) X10*3/uL Baso # (Auto) 0.0 0.0 (0.0-0.2) X10*3/uL Abs Immat Gran (auto) 0.02 0.03 (0.00-0.03) X10*3/uL Absolute Neuts (auto) 0.7 L 0.7 L (2.0-8.3) x10*3/uL Absolute Nucleated RBC 0.000 0.000 (0.0-0.012) X10*3/uL Nucleated RBC % (auto) 0.0 0.0 (0.0-0.2) /100WBC Smear Tech's Comments VERIFIED VERIFIED PT 13.2 H (10.9-12.4) SEC INR 1.1 (0.9-1.1) Sodium 142 (135-145) mmol/L Potassium 4.6 (3.3-5.1) mmol/L Chloride 113 H (96-108) mmol/L Carbon Dioxide 23 (22-29) mmol/L Anion Gap 11 L (12-20) BUN 35 H (9-16) mg/dL Creatinine 1.34 (0.5-1.4) mg/dL Estim Creat Clear Calc 54.5 Estimated GFR 54 Random Glucose 103 (60-115) mg/dL Calcium 9.1 D (8.4-10.2) mg/dL Magnesium 1.9 (1.6-2.6) mg/dL Total Bilirubin 0.5 (0.0-1.0) mg/dL AST 18 (5-37) U/L ALT 13 (0-40) U/L Alkaline Phosphatase 46 (39-117) U/L Total Protein 6.6 (6.5-8.0) g/dL Albumin 3.7 (3.5-5.0) g/dL Stool Occult Blood NEGATIVE (NEGATIVE) Blood Type O Positive Antibody Screen NEGATIVE Crossmatch See Detail External Record Review External record reviewed: Inpatient record and Outpatient record Chronic Conditions Patient?s care impacted by: Other (See narrative above) Critical Care Time Critical Care Time Critical Care Time: Yes Total Critical Care Time: 35 Attestation: I personally attest to this critical care time spent taking care of the patient exclusive of all other billable procedures was approximately 35 minutes including initial evaluation of patient, ordering tests, anemia requiring 2 units PRBC transfusion, medical consultation, documentation, re-evaluation. Discharge Plan Discharge Clinical Impression: Anemia requiring transfusions Patient Disposition: Still a Patient Instructions: Anemia (ED) Additional Instructions: We were able to make contact with your health aid at [facility]. It is recommended that you follow-up with them accordingly as scheduled for your appointment in March. You received 2 units of packed red blood cells in the emergency department today without complication. They are recommending that you establish care with a local health aid so that you may receive weekly blood transfusions if required. This will help to facilitate your care given the extensive travel it takes for you to get to [place]. I have provided contact information for the health aid office associated with our hospital, you may also speak with your primary care doctor regarding assistance with obtaining a health aid locally if you do not wish to see our hematology office for any reason. The decision is ultimately years on who you feel you wish to follow-up with Prescriptions: No Action pantoprazole [Protonix] 40 mg Tablet,Delayed Release (Dr/Ec) 40 mg PO DAILY@0630 ursodiol 300 mg Capsule 300 mg PO BID tacrolimus [Prograf] 1 mg Capsule 4 mg PO DAILY magnesium oxide 400 mg magnesium Tablet 1,200 mg PO BID@1200,1700 Senna Plus 8.6-50 mg Capsule 1 tab-cap PO DAILY PRN (Reason: Constipation) urea 15 gram/scoop Powder 15 g PO Q48H Rx Instructions: Alternating days with Sodium Zirconium Cyclosilicate sodium zirconium cyclosilicate 10 gram Powder In Packet 10 g PO Q48H Rx Instructions: Alternating days with Urea 15g tacrolimus [Prograf] 5 mg Capsule 5 mg PO BEDTIME magnesium oxide 400 mg magnesium Tablet 800 mg PO DAILY acetaminophen [Tylenol Extra Strength] 500 mg Tablet 500 mg PO Q4-6H PRN (Reason: Pain) Referrals: [facility] [place] Oncology/Hematology [Provider Group] Print Language: Ghanaian
[2024-03-02 15:36] LABS: Basophils Percent Auto 0.5 % (0-2); Eosinophils Absolute Auto 0.2 X10*3/uL (0.0-0.4); Eosinophils Percent Auto 11.8 % (0-4); Imm Gran Abs Auto 0.02 X10*3/uL (0.00-0.03); Lymphocytes Absolute Auto 0.5 X10*3/uL (1.2-4.9); Lymphocytes Percent Auto 26.1 % (20-40); MANUAL DIFF FLAG SCAN; Mean Corpuscular HGB Conc 33.3 g/dl (31.0-36.0); Mean Corpuscular Hemoglobin 30.7 pg (27.0-33.0); Mean Corpuscular Volume 92.2 fL (80.0-98.0); Mean Platelet Volume 10.1 fL (9.4-12.4); Monocytes Absolute Auto 0.6 X10*3/uL (0.1-1.2); Monocytes Percent Auto 28.1 % (2-11); Neutrophils Absolute Auto 0.7 x10*3/uL (2.0-8.3); Neutrophils Percent Auto 32.5 % (45-73); Platelet Count 185 X10*3/uL (160-400); Red Blood Count 1.92 X10*6/uL (4.60-5.80); Red Cell Distribution Width 18.6 % (11.0-16.0); SCAN SMEAR FLAG 1
[2024-03-02 15:42] LABS: INTERNATIONAL NORM RATIO 1.1 (0.9-1.1); Prothrombin Time 13.2 SEC (10.9-12.4)
[2024-03-02 15:44] LABS: Hematocrit 17.7 % (42.0-52.0); Hemoglobin 5.9 g/dl (14.0-18.0)
[2024-03-02 15:51] LABS: Alanine Aminotransferase 13 U/L (0-40); Albumin Level 3.7 g/dL (3.5-5.0); Alkaline Phosphatase 46 U/L (39-117); Anion Gap 11 (12-20); Aspartate Amino Transferase 18 U/L (5-37); Bilirubin Total 0.5 mg/dL (0.0-1.0); Blood Urea Nitrogen 35 mg/dL (9-16); Calcium 9.1 mg/dL (8.4-10.2); Carbon Dioxide 23 mmol/L (22-29); Chloride 113 mmol/L (96-108); Creatinine Clr Calc Pharmacy 54.5; Estimated Glomerular Filt Rate 54; Glucose Random 103 mg/dL (60-115); Magnesium 1.9 mg/dL (1.6-2.6); Potassium 4.6 mmol/L (3.3-5.1); Sodium 142 mmol/L (135-145); Total Protein 6.6 g/dL (6.5-8.0)
[2024-03-02 16:12] LABS: SLIDE REVIEW VERIFIED
[2024-03-02 18:02] LABS: OBS Int Ctl Valid YES; OBS1 NEGATIVE (NEGATIVE)
--- NOTE | 2024-03-02 20:06 | PC.NURSE ---
blood transfusing per tar. nad. vss. pt denies any pain/concerns at this time. pt requested food, given per [facility] nonprofit fundraiser approval. call banks within reach.
--- NOTE | 2024-03-02 21:45 | PC.NURSE ---
upon assuming care of pt 1914 blood transfusing via iv L. AC with downstream occlusion on pump. blood transfusion switched to infuse via iv L. forearm/wrist area. at 2107 blood transfusion reached limit of 4 hours with approx 170mL blood remaining in bag. this blood discarded per protocol and [facility] IT SALES CONSULTANT made aware. 2nd transfusion started. per [facility] IT SALES CONSULTANT to repeat cbc upon completion of 2nd bag. pts vitals stable, afebrile, lungs cta. denies cp/sob, watching tv.
[2024-03-03 01:01] VITALS: BP 134/77; PULSE 63; RESP 16; TEMP 37
[2024-03-03 01:04] LABS: Basophils Percent Auto 0.4 % (0-2); Eosinophils Absolute Auto 0.4 X10*3/uL (0.0-0.4); Eosinophils Percent Auto 17.4 % (0-4); Hematocrit 21.1 % (42.0-52.0); Hemoglobin 7.3 g/dl (14.0-18.0); Imm Gran Abs Auto 0.03 X10*3/uL (0.00-0.03); Imm Gran Pct Auto 1.2 % (0.0-0.4); Lymphocytes Absolute Auto 0.6 X10*3/uL (1.2-4.9); Lymphocytes Percent Auto 26.6 % (20-40); MANUAL DIFF FLAG SCAN; Mean Corpuscular HGB Conc 34.6 g/dl (31.0-36.0); Mean Corpuscular Hemoglobin 31.1 pg (27.0-33.0); Mean Corpuscular Volume 89.8 fL (80.0-98.0); Mean Platelet Volume 10.5 fL (9.4-12.4); Monocytes Absolute Auto 0.6 X10*3/uL (0.1-1.2); Monocytes Percent Auto 26.1 % (2-11); Neutrophils Absolute Auto 0.7 x10*3/uL (2.0-8.3); Neutrophils Percent Auto 28.3 % (45-73); Platelet Count 180 X10*3/uL (160-400); Red Blood Count 2.35 X10*6/uL (4.60-5.80); Red Cell Distribution Width 17.2 % (11.0-16.0); SCAN SMEAR FLAG 1
[2024-03-03 01:09] LABS: White Blood Count 2.4 X10*3/uL (4.8-10.8)
[2024-03-03 01:25] LABS: SLIDE REVIEW VERIFIED
[2024-03-03 01:45] VITALS: BP 134/77; PULSE 63; RESP 16; TEMP 37; O2SAT 99
== END 2024-03-03 01:45 | disposition home or self-care (01) ==
PROVIDERS: Nurse Practitioner Family; Physician Assistant Medical; Emergency Provider Emergency Medicine Emergency Medical Services; PCP Internal Medicine
DX: D64.9 Anemia, unspecified (principal); R33.9 Retention of urine, unspecified; R10.2 Pelvic and perineal pain; Z79.899 Other long term (current) drug therapy
CPT/HCPCS: 36415; 51798; 80053; 82272; 83735; 85025; 85610; 86850; 86900; 86901; 86923; 99284; 99285; P9016

== ENCOUNTER 2024-03-23 13:24 | Emergency (ER) | payer OTHER, SELFPAY ==
--- NOTE | 2024-03-23 14:06 | ED_ITS ---
HPI - General Adult General Chief complaint: Recheck/Abnormal Lab/Rx Stated complaint: blood transfusion Time Seen by Provider: 03/23/24 21:33 Source: patient Mode of arrival: ambulatory Limitations: no limitations History of Present Illness ED Provider: Shy Summers NP HPI narrative: Patient is a 64-year-old male who presents emergency department reporting that his web solutions architect told him that he is having worsening of his anemia requires a blood transfusion. He offers no physical complaints, states ?I feel great?. He reports no active bleeding. He has been following with his transplant team at [facility] in [facility] as well as his web solutions architect at [facility] in [place] Related Data Home Medications ?Medication ?Instructions ?Recorded ?Confirmed magnesium oxide 1,200 mg PO BID@1200,1700 12/09/23 01/13/24 pantoprazole 40 mg tablet,delayed 40 mg PO DAILY@0630 12/09/23 01/13/24 release (Protonix) sennosides 8.6 mg-docusate sodium 1 tab-cap PO DAILY PRN Constipation 12/09/23 01/13/24 50 mg capsule (Senna Plus) sodium zirconium cyclosilicate 10 10 g PO Q48H 12/09/23 01/13/24 gram oral powder packet tacrolimus 1 mg capsule, 4 mg PO DAILY 12/09/23 01/13/24 immediate-release (Prograf) urea 15 gram/scoop oral powder 15 g PO Q48H 12/09/23 01/13/24 ursodiol 300 mg capsule 300 mg PO BID 12/09/23 01/13/24 acetaminophen 500 mg tablet 500 mg PO Q4-6H PRN Pain 01/13/24 01/13/24 (Tylenol Extra Strength) magnesium oxide 800 mg PO DAILY 01/13/24 01/13/24 tacrolimus 5 mg capsule, 5 mg PO BEDTIME 01/13/24 01/13/24 immediate-release (Prograf) Previous Rx's ?Medication ?Instructions ?Recorded urea 15 gram oral powder packet 1 packet PO DAILY #8 ea 03/24/24 Allergies Allergy/AdvReac Type Severity Reaction Status Date / Time No Known Allergies Allergy Verified 03/23/24 14:07 Review of Systems 2 Review of Systems: Yes all other systems are reviewed and are negative PMFSH Past Medical History Attestation statement: The following information was validated with the patient. Source: old records reviewed Medical History Dyspnea Lung cancer History of alcohol abuse Liver cancer Smoker Cardiac murmur Aortic stenosis Hypertension Chronic hepatitis C Alcoholic cirrhosis Surgical History History of appendectomy H/O colonoscopy History of ablation of neoplasm of liver Social History Social History Household Members: Spouse Housing: Apartment Do you presently have visiting nurse or other home services: No Alcohol intake: former Patient Tobacco Use Status: Former Tobacco user Tobacco use type: Cigarette Cigarettes Per Day: 6 Years Smoked: 20 years Smoked in Last 30 Days: No Use of substances other than those prescribed or required for medical reasons: No Advance Directives: No Advance Directives Information Provided: No Do you have a plan to hurt others: No Plan service: Yes Physical Exam ED Vital Signs: Vital Signs - 24 hr 03/23/24 14:07 03/23/24 21:55 03/23/24 23:20 Temperature 98.5 F 98.0 F 97.9 F Pulse Rate 73 64 66 Respiratory Rate 18 18 20 Blood Pressure 127/71 134/74 137/76 Pulse Oximetry 100 100 100 Oxygen Delivery Method Room Air Room Air Room Air 03/24/24 00:02 03/24/24 00:02 03/24/24 00:22 Temperature 97.9 F 97.9 F 98.2 F Pulse Rate 62 62 61 Respiratory Rate 19 19 18 Blood Pressure 134/72 152/79 H Pulse Oximetry Oxygen Delivery Method 03/24/24 02:00 03/24/24 02:44 03/24/24 02:47 Temperature 97.9 F 98.0 F 98.0 F Pulse Rate 69 68 68 Respiratory Rate 18 17 17 Blood Pressure 146/78 H 144/82 H 144/82 H Pulse Oximetry 100 100 Oxygen Delivery Method Room Air Room Air 03/24/24 03:04 03/24/24 03:05 03/24/24 03:22 Temperature 97.8 F 97.8 F 97.8 F Pulse Rate 61 61 62 Respiratory Rate 17 17 19 Blood Pressure 132/64 132/64 136/74 Pulse Oximetry Oxygen Delivery Method 03/24/24 05:57 Temperature 98.0 F Pulse Rate 87 Respiratory Rate 16 Blood Pressure 132/72 Pulse Oximetry Oxygen Delivery Method BMI result Body Mass Index 25.1 Appearance: Alert.?Oriented to person, place and time. No acute distress.?Normal affect. Eyes: Pupils equal, round and reactive to light.? ENT: Pharynx normal.?? Neck: Normal inspection.? Neck supple.?? CVS: Heart sounds normal. Normal heart rate and rhythm.? Pulses normal.?? Respiratory: No respiratory distress.? Lung sounds clear to auscultation bilaterally?? Abdomen: Soft and non-tender. Normoactive bowel sounds. Mid Abdominal hernia? Skin: Skin warm and dry.? Normal skin color.? ?? Extremities: No lower extremity edema.? No calf ttp? Neuro: Moves all extremities spontaneously. Sensation intact bilaterally. CN II- XII intact. No focal neuro deficits. Ambulates with normal steady gait. Course Course Course Narrative: This is a rapid medical exam performed by Sandra Radford NP: Additional HPI, ROS, PE not included below will be deferred to primary provider. Patient is a 64- year old male with history of lung CA, liver CA s/p tx with ablation therapy, chronic hep C, alcoholic cirrhosis, HTN, aortic stenosis presenting to the ED stating that he needs a blood transfusion. Had labs done at the OR this am and was told his H&H was critically low. Patient appears pale. States last week he was diagnosed with bone marrow cancer. plan: labs including T&S Reevaluation(s) Reevaluation #1: Patient signed out to my attending, Dr. Medina pending completion of transfusion re-evaluation. I anticipate that he will be discharged home, I did place order for repeat CBC as he does not have current local web solutions architect. We discussed the importance of establishing local care for coordination of outpatient transfusions as necessary. I have sent a prescription for urea to his local pharmacy to cover until he receives his mail order. Time: 02:05 Reevaluation #2: Dr. Vik Medina's note: The patient completed his 2 units of PRBC transfusion without any incident. Patient's initial H&H was 5.8 and 16 in the patient's H&H after transfusion was 7.9 and 22.6. The patient will be discharged to home. He was given printed and verbal instructions regarding follow-up and return precautions. Time: 06:51 Medications Administered Discontinued Medications Generic Name Dose Route Start Last Admin Trade Name Maximo RASHID Reason Stop Dose Admin Urea 15 gm 03/23/24 22:45 03/24/24 00:09 Urea 15 Gm Powder PO 03/23/24 22:46 15 gm ONCE ONE Administration Medical Decision Making Medical Decision Making MDM Narrative: Patient is a 64-year-old male with past medical history of aortic stenosis, hypertension, alcoholic cirrhosis, hepatitis-C, liver cancer S/P ablation therapy and liver transplant in July of 2023 at [facility], following with Hematology at [facility] due to low- grade MDS on bone marrow biopsy last seen by his web solutions architect a week ago, has an upcoming appointment with his transplant team later this week for ?removal of the stent with an ERCP , presenting with acute on chronic anemia requiring blood transfusion by advised him of his web solutions architect. He was seen in this emergency department by myself 02/11/2024, at the time it was recommended that he establish care with a web solutions architect locally so that he may have outpatient coordination of transfusions as it is difficult for him to get to [facility] on a frequent basis. Unfortunately, he did not contact the Hematology office associated with our hospital after his last visit. I did discuss with him the importance of this so that he can have continuity of care coordinated appropriately. He has chronic leukopenia, RBC 1.85, hemoglobin of 5.8 and hematocrit with 16.3, no thrombocytopenia. INR 1.2, platelet 13.4. BUN at baseline, no evidence of JAVIER , he does have hyponatremia sodium of 124, chronic history of SIADH, entirely asymptomatic, unfortunately he has not been taking his urea for the past 2 weeks, he is waiting it to be delivered from the [place] Hospital anticipates that he will have it by Friday. Unfortunately, despite his acute or chronic anemia he is asymptomatic offers no physical complaints. He is well-appearing no signs of systemic toxicity.. No respiratory distress. Differential Diagnosis Differential Diagnoses: The differential diagnosis associated with the presentation includes (See narrative above) Admission/Observation Consideration of admission/observation: Escalation of care including admission/observation considered (See narrative above in course narrative for further detail) Lab Data [facility] Lab Attestation statement: I reviewed the patient's lab results. (See narrative above) 03/24/24 06:18 03/23/24 21:12 Labs: Lab Results 03/23/24 03/23/24 03/23/24 Range/Units 21:12 21:50 23:18 WBC 2.5 L (4.8-10.8) X10*3/uL RBC 1.84 L D (4.60-5.80) X10*6/uL Hgb 5.8 L* D (14.0-18.0) g/dl Hct 16.3 L* D (42.0-52.0) % MCV 88.6 (80.0-98.0) fL MCH 31.5 (27.0-33.0) pg MCHC 35.6 (31.0-36.0) g/dl RDW 21.3 H (11.0-16.0) % Plt Count 216 (160-400) X10*3/uL MPV 10.4 (9.4-12.4) fL Immature Gran % (Auto) Cancelled Neut % (Auto) Cancelled Lymph % (Auto) Cancelled [place] % (Auto) Cancelled Eos % (Auto) Cancelled Baso % (Auto) Cancelled Lymph # (Auto) Cancelled [place] # (Auto) Cancelled Eos # (Auto) Cancelled Baso # (Auto) Cancelled Abs Immat Gran (auto) Cancelled Absolute Neuts (auto) Cancelled Absolute Nucleated RBC 0.000 (0.0-0.012) X10*3/uL Nucleated RBC % (auto) 0.0 (0.0-0.2) /100WBC Neutrophils % (Manual) 42 L (45-73) % Band Neutrophils % 1 L (3-5) % Lymphocytes % (Manual) 34 (20-40) % Monocytes % (Manual) 5 (2-11) % Eosinophils % (Manual) 18 H (0-4) % Abs Neuts (Manual) 1.1 L (2.0-8.3) X10*3/uL Lymphocytes # (Manual) 0.9 L (1.2-4.9) X10*3/uL Monocytes # (Manual) 0.1 (0.1-1.2) X10*3/uL Eosinophils # (Manual) 0.5 H (0.0-0.4) X10*3/uL Platelet Estimate NORMAL (NORMAL) Plt Morphology Comment NORMAL RBC Morphology NOTED Ovalocytes 2+ (15-30) /OIF Smear Tech's Comments MANUAL DIFF PT 13.4 H (10.9-12.4) SEC INR 1.2 H (0.9-1.1) Sodium 124 L (135-145) mmol/L Potassium 4.3 (3.3-5.1) mmol/L Chloride 98 (96-108) mmol/L Carbon Dioxide 21 L (22-29) mmol/L Anion Gap 9 L (12-20) BUN 28 H (9-16) mg/dL Creatinine 0.90 (0.5-1.4) mg/dL Estim Creat Clear Calc 84.0 Estimated GFR > 60 Random Glucose 145 H (60-115) mg/dL Calcium 8.8 (8.4-10.2) mg/dL Total Bilirubin 0.6 (0.0-1.0) mg/dL AST 23 (5-37) U/L ALT 20 (0-40) U/L Alkaline Phosphatase 54 (39-117) U/L Total Protein 6.6 (6.5-8.0) g/dL Albumin 3.8 (3.5-5.0) g/dL Urine Color Yellow Urine Appearance Clear Urine pH 7.0 (5.0-9.0) Ur Specific [place] 1.015 (1.005-1.025) Urine Protein Negative (Neg-Trace) mg/dL Urine Glucose (UA) Negative (Negative) mg/dL Urine Ketones Negative (Negative) mg/dL Urine Blood Negative (Negative) Urine Nitrite Negative (Negative) Ur Leukocyte Esterase Negative (Negative) Blood Type O Positive Antibody Screen NEGATIVE Crossmatch See Detail 03/24/24 Range/Units 06:18 WBC 3.0 L (4.8-10.8) X10*3/uL RBC 2.57 L D (4.60-5.80) X10*6/uL Hgb 7.9 L D (14.0-18.0) g/dl Hct 22.6 L D (42.0-52.0) % MCV 87.9 (80.0-98.0) fL MCH 30.7 (27.0-33.0) pg MCHC 35.0 (31.0-36.0) g/dl RDW 18.7 H (11.0-16.0) % Plt Count 210 (160-400) X10*3/uL MPV 10.1 (9.4-12.4) fL Immature Gran % (Auto) Neut % (Auto) Lymph % (Auto) [place] % (Auto) Eos % (Auto) Baso % (Auto) Lymph # (Auto) [place] # (Auto) Eos # (Auto) Baso # (Auto) Abs Immat Gran (auto) Absolute Neuts (auto) Absolute Nucleated RBC (0.0-0.012) X10*3/uL Nucleated RBC % (auto) (0.0-0.2) /100WBC Neutrophils % (Manual) (45-73) % Band Neutrophils % (3-5) % Lymphocytes % (Manual) (20-40) % Monocytes % (Manual) (2-11) % Eosinophils % (Manual) (0-4) % Abs Neuts (Manual) (2.0-8.3) X10*3/uL Lymphocytes # (Manual) (1.2-4.9) X10*3/uL Monocytes # (Manual) (0.1-1.2) X10*3/uL Eosinophils # (Manual) (0.0-0.4) X10*3/uL Platelet Estimate (NORMAL) Plt Morphology Comment RBC Morphology Ovalocytes /OIF Smear Tech's Comments PT (10.9-12.4) SEC INR (0.9-1.1) Sodium (135-145) mmol/L Potassium (3.3-5.1) mmol/L Chloride (96-108) mmol/L Carbon Dioxide (22-29) mmol/L Anion Gap (12-20) BUN (9-16) mg/dL Creatinine (0.5-1.4) mg/dL Estim Creat Clear Calc Estimated GFR Random Glucose (60-115) mg/dL Calcium (8.4-10.2) mg/dL Total Bilirubin (0.0-1.0) mg/dL AST (5-37) U/L ALT (0-40) U/L Alkaline Phosphatase (39-117) U/L Total Protein (6.5-8.0) g/dL Albumin (3.5-5.0) g/dL Urine Color Urine Appearance Urine pH (5.0-9.0) Ur Specific [place] (1.005-1.025) Urine Protein (Neg-Trace) mg/dL Urine Glucose (UA) (Negative) mg/dL Urine Ketones (Negative) mg/dL Urine Blood (Negative) Urine Nitrite (Negative) Ur Leukocyte Esterase (Negative) Blood Type Antibody Screen Crossmatch External Record Review External record reviewed: Outpatient record Chronic Conditions Patient?s care impacted by: Other (See narrative above) Discharge Plan Discharge Clinical Impression: Liver transplant status, MDS (myelodysplastic syndrome), low grade, History of SIADH Anemia Qualifiers: Anemia type: unspecified type Qualified Code(s): D64.9 - Anemia, unspecified Patient Disposition: Home, Self-Care Instructions: Anemia (ED) Additional Instructions: As discussed, it is very important that you establish care with a local web solutions architect. It is difficult for you to get to [facility] for frequent care, and as mentioned last time, you may continue to require frequent transfusions. If care as established with the web solutions architect locally, they may be better able to assist you with arranging outpatient blood transfusions so that you do not have to come to the emergency department. You received 2 units of packed red blood cells in the emergency department today. Additionally as discussed, your sodium level was low today at 01:24, likely this is due to not having taken your Urea over the past 2 weeks, understand that you were due to receive it through mail order delivery from the [place] pharmacy, however I have sent a prescription to a local pharmacy for you to cover you until then, you received a dose in the emergency department today. You may return to emergency department with any new or worsening symptoms or concerns. Your initial hemoglobin and hematocrit was 5.8 and 16. After TA units of packed red blood cell transfusions your hematocrit and hemoglobin was 7.9 and 22.8. Prescriptions: New urea 15 gram powder in packet 1 packet PO DAILY Qty: 8 0RF No Action pantoprazole [Protonix] 40 mg Tablet,Delayed Release (Dr/Ec) 40 mg PO DAILY@0630 ursodiol 300 mg Capsule 300 mg PO BID tacrolimus [Prograf] 1 mg Capsule 4 mg PO DAILY magnesium oxide 400 mg magnesium Tablet 1,200 mg PO BID@1200,1700 Senna Plus 8.6-50 mg Capsule 1 tab-cap PO DAILY PRN (Reason: Constipation) urea 15 gram/scoop Powder 15 g PO Q48H Rx Instructions: Alternating days with Sodium Zirconium Cyclosilicate sodium zirconium cyclosilicate 10 gram Powder In Packet 10 g PO Q48H Rx Instructions: Alternating days with Urea 15g tacrolimus [Prograf] 5 mg Capsule 5 mg PO BEDTIME magnesium oxide 400 mg magnesium Tablet 800 mg PO DAILY acetaminophen [Tylenol Extra Strength] 500 mg Tablet 500 mg PO Q4-6H PRN (Reason: Pain) Referrals: [facility] Oncology/Hematology [Provider Group] (low grade MDS - web solutions architect [facility] [place] - needs local web solutions architect to facilitate transfusions) Physician,Unknown J [Primary Care Provider] - Print Language: Greek
[2024-03-23 14:07] VITALS: BP 127/71; PULSE 73; RESP 18; TEMP 36.9; O2SAT 100; BMI 25.1
[2024-03-23 21:22] LABS: Mean Platelet Volume 10.4 fL (9.4-12.4)
[2024-03-23 21:31] LABS: Mean Corpuscular HGB Conc 35.6 g/dl (31.0-36.0); Mean Corpuscular Hemoglobin 31.5 pg (27.0-33.0); Mean Corpuscular Volume 88.6 fL (80.0-98.0); Platelet Count 216 X10*3/uL (160-400); Red Blood Count 1.84 X10*6/uL (4.60-5.80); Red Cell Distribution Width 21.3 % (11.0-16.0)
[2024-03-23 21:33] LABS: White Blood Count 2.5 X10*3/uL (4.8-10.8)
[2024-03-23 21:36] LABS: Hematocrit 16.3 % (42.0-52.0); Hemoglobin 5.8 g/dl (14.0-18.0)
[2024-03-23 21:40] LABS: Alanine Aminotransferase 20 U/L (0-40); Albumin Level 3.8 g/dL (3.5-5.0); Alkaline Phosphatase 54 U/L (39-117); Anion Gap 9 (12-20); Aspartate Amino Transferase 23 U/L (5-37); Bilirubin Total 0.6 mg/dL (0.0-1.0); Blood Urea Nitrogen 28 mg/dL (9-16); Calcium 8.8 mg/dL (8.4-10.2); Carbon Dioxide 21 mmol/L (22-29); Chloride 98 mmol/L (96-108); Estimated Glomerular Filt Rate > 60; Glucose Random 145 mg/dL (60-115); Potassium 4.3 mmol/L (3.3-5.1); Sodium 124 mmol/L (135-145); Total Protein 6.6 g/dL (6.5-8.0)
[2024-03-23 21:45] LABS: INTERNATIONAL NORM RATIO 1.2 (0.9-1.1); Prothrombin Time 13.4 SEC (10.9-12.4)
[2024-03-23 21:54] LABS: SLIDE REVIEW MANUAL DIFF
[2024-03-23 21:55] VITALS: BP 134/74; PULSE 64; RESP 18; TEMP 36.7; O2SAT 100
[2024-03-23 21:58] LABS: Band Neutrophils Percent 1 % (3-5); Eosinophils Absolute Manual 0.5 X10*3/uL (0.0-0.4); Eosinophils Percent Manual 18 % (0-4); Lymphocytes Absolute Manual 0.9 X10*3/uL (1.2-4.9); Lymphocytes Percent Manual 34 % (20-40); Monocytes Absolute Manual 0.1 X10*3/uL (0.1-1.2); Monocytes Percent Manual 5 % (2-11); Neutrophils Absolute Manual 1.1 X10*3/uL (2.0-8.3); Neutrophils Percent Manual 42 % (45-73)
--- NOTE | 2024-03-23 21:58 | MHC.EDTECH ---
Patient came from the waiting room,changed into hospital attire,vitals taken,Type N Screen drawn and sent to lab,applied band to right wrist, patient is watching TV at this time,call banks in reach
[2024-03-23 22:00] LABS: Ovalocytes 2+ (15-30) /OIF
[2024-03-23 22:01] LABS: Platelet Estimate NORMAL (NORMAL); Platelet Morphology Comment NORMAL
[2024-03-23 22:02] LABS: RBC Morphology NOTED
--- NOTE | 2024-03-23 22:54 | PC.NURSE ---
Received report from MARILIN Wells. Assumed care of pt at 2200 Pt resting quietly watching tv, in ano acute distress. PT denies pain, vss, on tele SR 64mbp. safety precautions in place, call banks within reach. plan of care ongoing
[2024-03-23 23:20] VITALS: BP 137/76; PULSE 66; RESP 20; TEMP 36.6; O2SAT 100
--- NOTE | 2024-03-23 23:20 | MHC.EDTECH ---
Rounds and vitals completed,emptied 300MLS of clear yellow urine from urinal,sample collected and sent to lab.
[2024-03-23 23:26] LABS: Appearance Urine Clear; Color Urine Yellow; Glucose Urine UA Negative (Negative); Leukocyte Esterase Urine Negative (Negative); Nitrite Urine Negative (Negative); Specific Gravity - Urine 1.015 (1.005-1.025); Urine Blood Negative (Negative); Urine Ketones Negative (Negative); Urine Protein Negative (Neg-Trace)
[2024-03-24] VITALS (10 sets, daily range): BP systolic 132–152; BP diastolic 64–82; PULSE 61–87; RESP 16–19; TEMP 36.6–36.8; O2SAT 100
[2024-03-24] MEDS: Urea 15 GM POWDER PO (00:09)
--- NOTE | 2024-03-24 03:06 | MHC.EDTECH ---
Emptied 600MLS of clear yellow urine from urinal
--- NOTE | 2024-03-24 03:26 | PC.NURSE ---
1st prbc infused- no reactions, vss. Second bag currently infusing 15 mins vitals WNL. bedside report given to MARILIN Hernandez
--- NOTE | 2024-03-24 04:41 | PC.NURSE ---
sleeping. unlabored resp
--- NOTE | 2024-03-24 06:19 | MHC.EDTECH ---
Repeat lab drawn and sent to lab,emptied 500MLS from urinal
[2024-03-24 06:27] LABS: Basophils Percent Auto 0.3 % (0-2); Eosinophils Absolute Auto 0.5 X10*3/uL (0.0-0.4); Eosinophils Percent Auto 16.2 % (0-4); Hematocrit 22.6 % (42.0-52.0); Hemoglobin 7.9 g/dl (14.0-18.0); Imm Gran Abs Auto 0.08 X10*3/uL (0.00-0.03); Imm Gran Pct Auto 2.6 % (0.0-0.4); Lymphocytes Absolute Auto 0.6 X10*3/uL (1.2-4.9); Lymphocytes Percent Auto 20.5 % (20-40); MANUAL DIFF FLAG SCAN; Mean Corpuscular Hemoglobin 30.7 pg (27.0-33.0); Mean Corpuscular Volume 87.9 fL (80.0-98.0); Mean Platelet Volume 10.1 fL (9.4-12.4); Monocytes Absolute Auto 0.7 X10*3/uL (0.1-1.2); Monocytes Percent Auto 23.2 % (2-11); Neutrophils Absolute Auto 1.1 x10*3/uL (2.0-8.3); Neutrophils Percent Auto 37.2 % (45-73); Platelet Count 210 X10*3/uL (160-400); Red Blood Count 2.57 X10*6/uL (4.60-5.80); Red Cell Distribution Width 18.7 % (11.0-16.0); SCAN SMEAR FLAG 1
[2024-03-24 08:42] LABS: SLIDE REVIEW VERIFIED
== END 2024-03-24 07:36 | disposition home or self-care (01) ==
PROVIDERS: Nurse Practitioner Family; Registered Nurse Emergency; Emergency Provider Emergency Medicine Emergency Medical Services
DX: D64.9 Anemia, unspecified (principal); D46.9 Myelodysplastic syndrome, unspecified; I10 Essential (primary) hypertension; I35.0 Nonrheumatic aortic (valve) stenosis; Z94.4 Liver transplant status; Z79.899 Other long term (current) drug therapy; Z85.118 Personal history of other malignant neoplasm of bronchus and lung; Z85.528 Personal history of other malignant neoplasm of kidney
CPT/HCPCS: 36415; 36430; 80053; 81003; 85007; 85025; 85027; 85610; 86850; 86900; 86901; 86923; 99284; 99285; P9016

== ENCOUNTER 2024-06-15 12:41 | Outpatient (REF) | payer OTHER, SELFPAY ==
--- NOTE | 2024-06-15 12:45 | PFT_ITS ---
Flows: FEV1: 86 % of predicted at 2.96 L FVC: 80 % of predicted at 3.59 L FEV1/FVC: 82 % Bronchodilator response: Absent Volumes: Total lung capacity: 84 % of predicted at 6.01 L Residual volume: 105 % of predicted at 2.43 L Slow vital capacity: 73 % of predicted at 3.58 L Expiratory reserve volume: 47 % of predicted at 0.61 L Diffusion capacity: Moderately decreased, adjusts to being mildly decreased after correction for alveolar ventilation. Impression: No obstructive or restrictive ventilatory defect. No bronchodilator response. Decreased expiratory reserve volume suggests extrathoracic restriction likely secondary to abdominal obesity. Decreased diffusion capacity suggests emphysema. MTDD
--- OUTSIDE RECORDS SUMMARY | 2024-06-15 13:07 | XMS_ITS | Clinical Summary ---
Author Organization [facility] Address [address] [id number] Phone Care Team Providers Care Registered Account Administrator Name Role Phone Unavailable Primary Care Provider Unavailabl e Social History Tobacco Use Types Packs/Day Years Used Date Smoking Tobacco: Never Assessed Sex and Gender Information Value Date Recorded Sex Assigned at Not on file Legal Sex Male 10:41 AM EST Gender Identity Not on file Sexual Orientation Not on file Plan of Treatment Upcoming Encounters Date Type Department Care Team (Late st Contact Info) Description 07/15/2024 9:00 AM EST Office Visit [facility] [address] [phone] Gena Robison ARNP [address] [phone] Health Maintenance Due Date Last Done Comments Colorectal Cancer Screening: Annual FOBT 2010 Colorectal Cancer Screening: Colonoscopy 2010 Colorectal Cancer Screening: Sigmoidoscopy 2010 Pneumococcal Vaccine: Pediat rics (0 to 5 Years) and At-Risk Patients (6 to 64 Years) (2 of 2 - PCV) 03/21/2018 03/21/2017 Influenza Vaccine (#1) 2024 Hepatitis B Vaccine Completed 08/30/2014, 02/24/2014, 01/25/2014, Additional history exists Insurance [facility] 1,2,3 (VACCN)
--- OUTSIDE RECORDS SUMMARY | 2024-06-15 13:07 | XMS_ITS | Continuity of Care Document ---
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 Operator Name Role Phone Unavailable Unavailable Unavailable Allergies, [...] Providers Copied on Encounter OFFICE/OUTPA TIENT VISIT, [facility], [address], [place], [place], [id number], [place] tel:[phone] [facility] Follow Up of hypertension (chief complaint)Hype rlipidemia (chief complaint) Essential hypertensionH ypertriglycer idemia 6 No Information [facility], [address], [place], [place], [id number], [place] tel:[phone] [facility] No Information 6 No Information [facility], [address], [id number], [place] tel:[phone] [facility] No Information 6 No Information OFFICE/OUTPA TIENT VISIT, [facility], [address], [id number], [place] tel:[phone] [facility] musculoskeleta l pain (chief complaint) Right groin pain 5 No Information [facility], [address], [place], [place], [id number], [place] tel:[phone] [facility] No Information 5 [facility]. [address] [place], [address]. tel:[phone] OFFICE/OUTPA TIENT VISIT, [facility], [address], [place], [place], [id number], [place] tel:[phone] [facility] Groin pain (chief complaint)musc uloskeletal pain (chief complaint) No Information 5 No Information OFFICE/OUTPA TIENT VISIT, [facility], [address], [place], [place], [id number], [place] tel:[phone] [facility] musculoskeleta l pain (chief complaint) No Information 4 No Information OFFICE/OUTPA TIENT VISIT, [facility], [address] [address], [place], [place], [id number], [place] tel:[phone] [facility] musculoskeleta l pain (chief complaint) No Information 4 No Information OFFICE/OUTPA TIENT VISIT, [facility], [address], [place], [id number], [place] tel:[phone] [facility] Arm pain (chief complaint) No Information 4 No Information OFFICE/OUTPA TIENT VISIT, [facility], [address], [id number], [place] tel:[phone] [facility] musculoskeleta l pain (chief complaint) No Information 4 No Information OFFICE/OUTPA TIENT VISIT, [facility], [address], [id number], [place] tel:[phone] [facility] musculoskeleta l pain (chief complaint) No Information No Information [facility], [address], [id number], [place] tel:[phone] [facility] No Information 4 Pharmacy [facility]. [facility] [place], [address]. tel:[phone] Family History Family Member Type Diagnosis Age At Onset Mother Problem (finding) Alive and well Mother Problem (finding) hypertension Payers Payer name Insurance type Covered republican ID Ida garcia(s) [facility] [id number] Social History Type Description Quantity Date Captured [...] and weakness. Additional information: mild groin pain. musculoskeletal pain Onset: 2 mo nths ago. [...] the legs and weakness. Hand Dominance: right. Groin pain musculoskeletal pain Additional information: Pt is here [...] in the legs. Additional information: X-ray at [facility], normal. Diffuculty grabbing, moving hand. Functional Status Date Functional Assessmen t No Information Instructions Date Instruction Additional Infor mation Dietary restrictions reviewed, low carbRecheck in 4 moF/U in 2-3 mo*monitor BP, may need to lower dose Related to Hypertriglyceridemia Continue current med icationF/U in 2-3 mo Related to Essential hypertension Lifestyle education regarding di et Giving encouragement to exercise Use warm to cold com presses for [...] type of pain will not be a half-way treatment plan. Denies hx of substance abuse. Given percocet 5-325 #45, take 1/2 tablet as needed for pain. Given wrap for lateral epicondyleDiscussed possible steroid injections in the future. Follow-up in 1 month Related to Lateral epicondylitis Lifestyle education regarding di et Giving encouragement to exercise Admits to no change in symptoms with ibuprofen and the exercises. Denies numbness/tingling in R hand or arm. There is tenderness over bony lateral R elbow down into mid forearm. Will try tramadol 50mg one tab every 12 hrs as needed for pain. Advised not to take while operating machinery. X-ray R upper arm from [facility] was normal Related to Right arm pain Referred to ophthalmology Relate d to Vision changes 2-3 week hx of worse mely R forearm pain. Denies injury. States pain is 9/10, stabbing in nature; denies numbness/tingling. Good sensation and circulation in R upper ext. 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 Seen at [facility], X-ray, normal. States ibuprofen given at [...] Mental Status Date Cognitive Assessment Orientation - [place] ed to time, place, person, situation. Patient Care Teams Name Effective Dates (start - stop) Status Members No Information
--- OUTSIDE RECORDS SUMMARY | 2024-06-15 13:09 | XMS_ITS | Clinical Summary ---
Author Organization [facility] ity Address [address] [place] [address] Care Team Providers Care Php Developer Name Role Phone Unavailable Primary Care Provider Unavailabl e Surgical History Surgery Date Site/Laterality Comments OTHER SURGICAL HISTORY 02/22/2021 N/A PROCEDURE: SD LAPAROSCOPIC APPENDECTOMY; COMMENT: April Allred Social History Tobacco Use Types Packs/Day Years Used Date Smoking Tobacco: Every Day Alcohol Use Standard Drinks/Week Comments Not Currently 0 (1 standard drink = 0.6 oz pur e alcohol) Sex and Gender Information Value Date Recorded Sex Assigned at Not on file Gender Identity Not on file Sexual Orientation Not on file Obstetrics History Plan of Treatment Health Maintenance Due Date Last Done Comments DTaP,Tdap,and Td Vaccines (1 - Tdap) 1980 Zoster Vaccines (1 of 2) 2011 COVID-19 Vaccine ( - 2023-2 5 season) 2024 Influenza Vaccine (#1) 2024 RSV Immunization Patients 60 + Years Old (1 - 1-dose 75+ series) 2036 HIB Vaccines Aged Out No longer eligi ble based on patient's age to complete this topic HPV Vaccines Aged Out No longer eligi ble based on patient's age to complete this topic Hepatitis A Vaccines Aged Out No long er eligible based on patient's age to complete this topic Hepatitis B Vaccines Aged Out No long er eligible based on patient's age to complete this topic IPV Vaccines Aged Out No longer eligi ble based on patient's age to complete this topic MMR Vaccines Aged Out No longer eligi ble based on patient's age to complete this topic Meningococcal ACWY Vaccine Aged Out N o longer eligible based on patient's age to complete this topic Pneumococcal Vaccine: Pediat rics (0 to 5 Years) and At-Risk Patients (6 to 64 Years) Aged Out No longer eligible b ased on patient's age to complete this topic RSV Immunization Patients Un farida 20 months Aged Out No longer eligible b ased on patient's age to complete this topic Varicella Vaccines Aged Out No longer eligible based on patient's age to complete this topic
--- OUTSIDE RECORDS SUMMARY | 2024-06-15 13:09 | XMS_ITS ---
Author Name [facility] Organization Unknown Results Test Name/Text Value Interpretation Date Range Source CMV DNA Quant PCR Normal [id number] - [facility] Tacrolimus Lvl 16.8ng/mL Normal [id number] 5 - 19 [facility] G[facility] [place] 60mL/min/1.73m2 Normal [id number] - [facility] Bili Direct 0.33mg/dL Above high normal [id number] 0 - 0.3 [facility] Magnesium Lvl 1.3mg/dL Below low normal [id number] 1.6 - 2.6 [facility] Sodium Lvl 142mmol/L Normal [id number] 136 - 145 [facility] Potassium Lvl 4.5mmol/L Normal 888813971610 3.4 - 4.5 [facility] Chloride 111mmol/L Above high normal [id number] 98 - 107 [facility] CO2 24mmol/L Normal [id number] 20 - 31 [facility] AGAP 7mmol/L Normal [id number] 5 - 15 [facility] Glucose Lvl Random 133mg/dL Normal [id number] 65 - 140 [facility] BUN 67mg/dL Above high normal [id number] 9 - 23 [facility] Creatinine 1.34mg/dL Above high normal 184377552517 0.6 - 1. 1 [facility] Calcium Lvl 9.9mg/dL Normal [id number] 8.7 - 10.4 [facility] Alk Phos 80unit/L Normal [id number] 46 - 116 [facility] AST 20unit/L Normal [id number] 0 - 33 [facility] ALT 20unit/L Normal [id number] 10 - 49 [facility] Total Protein 7.5gm/dL Normal [id number] 5.7 - 8.2 [facility] Albumin Lvl 4.1gm/dL Normal [id number] 3.2 - 4.8 [facility] Globulin 3.4gm/dL Normal [id number] 1.3 - 4.7 [facility] A/G Ratio 1.2 Normal [id number] 1 - 3.8 [facility] Bili Total 0.9mg/dL Normal [id number] 0.2 - 1.1 [facility] PT 14.6sec Normal [id number] 12.2 - 14.8 [facility] INR 1.1 Normal [id number] 0.8 - 1.2 [facility] WBC 2.08k/uL Below low normal [id number] 4 - 10.8 [facility] RBC 2.84million/uL Below low normal [id number] 4.2 - 5.5 [facility] Hgb 8.2gm/dL Below low normal [id number] 12.5 - 16.5 [facility] Hct 26.3% Below low normal [id number] 37.5 - 49.5 [facility] MCV 92.6FL Normal [id number] 81 - 100 [facility] MCH 28.9pg Normal [id number] 27 - 31 [facility] MCHC 31.2gm/dL Normal [id number] 31 - 36 [facility] RDW 18% Above high normal [id number] 11.5 - 15.5 [facility] Platelet 137k/uL Below low normal [id number] 145 - 400 [facility] MPV 10.7FL Above high normal [id number] 7.5 - 10.4 [facility] NRBC auto 0/100wbcs Normal [id number] 0 - 2 [facility] NRBC Abs 0k/uL Normal [id number] 0 - 0.1 [facility] Neutro % 41.3% Below low normal [id number] 43 - 75 [facility] Neutro Absolute 0.9k/uL Below low normal [id number] 1.7 - 8.1 [facility] Imm Gran % 1% Above high normal [id number] 0.1 - 0. 3 [facility] Imm Gran Absolute 0.02k/uL Normal [id number] 0.01 - 0.03 [facility] Lymph % 29.3% Normal [id number] 15 - 45 [facility] Lymph Absolute 0.6k/uL Normal [id number] 0.6 - 4.9 [facility] [place] % 19.7% Above high normal [id number] 3 - 12 [facility] Monocyte Abs 0.4k/uL Normal [id number] 0.1 - 1.3 [facility] Eos % 8.2% Above high normal [id number] 0 - 6 [facility] Eosinophil Abs 0.2k/uL Normal [id number] 0 - 0.7 [facility] Basophil % 0.5% Normal 0 - 2 [facility] Basophil Abs 0k/uL Normal [id number] 0 - 0.2 [facility] CMV DNA Quant PCR Normal [id number] - [facility] Tacrolimus Lvl 14.7ng/mL Normal [id number] 5 - 19 [facility] [place] 64mL/min/1.73m2 Normal [id number] - [facility] Magnesium Lvl 1.3mg/dL Below low normal [id number] 1.6 - 2.6 [facility] Sodium Lvl 140mmol/L Normal [id number] 136 - 145 [facility] Potassium Lvl 5.6mmol/L Above high normal [id number] 3.4 - 4.5 [facility] Chloride 109mmol/L Above high normal [id number] 98 - 107 [facility] CO2 26mmol/L Normal [id number] 20 - 31 [facility] AGAP 5mmol/L Normal [id number] 5 - 15 [facility] Glucose Lvl Random 107mg/dL Normal [id number] 65 - 140 [facility] BUN 37mg/dL Above high normal [id number] 9 - 23 [facility] Creatinine 1.26mg/dL Above high normal [id number] 0.6 - 1. 1 [facility] Calcium Lvl 10.1mg/dL Normal [id number] 8.7 - 10.4 [facility] Alk Phos 88unit/L Normal [id number] 46 - 116 [facility] AST 23unit/L Normal [id number] 0 - 33 [facility] ALT 17unit/L Normal [id number] 10 - 49 [facility] Total Protein 7.6gm/dL Normal [id number] 5.7 - 8.2 [facility] Albumin Lvl 4gm/dL Normal [id number] 3.2 - 4.8 [facility] Globulin 3.6gm/dL Normal [id number] 1.3 - 4.7 [facility] A/G Ratio 1.1 Normal [id number] 1 - 3.8 [facility] Bili Total 0.9mg/dL Normal [id number] 0.2 - 1.1 [facility] Bili Direct 0.34mg/dL Above high normal [id number] 0 - 0.3 [facility] PT 14.9sec Above high normal [id number] 12.2 - 14.8 [facility] INR 1.1 Normal [id number] 0.8 - 1.2 [facility] WBC 2.49k/uL Below low normal [id number] 4 - 10.8 [facility] RBC 2.84million/uL Below low normal [id number] 4.2 - 5.5 [facility] Hgb 8.2gm/dL Below low normal [id number] 12.5 - 16.5 [facility] Hct 25.7% Below low normal [id number] 37.5 - 49.5 [facility] MCV 90.5FL Normal [id number] 81 - 100 [facility] MCH 28.9pg Normal [id number] 27 - 31 [facility] MCHC 31.9gm/dL Normal [id number] 31 - 36 [facility] RDW 16.4% Above high normal [id number] 11.5 - 15.5 [facility] Platelet 115k/uL Below low normal [id number] 145 - 400 [facility] MPV 11FL Above high normal [id number] 7.5 - 10.4 [facility] NRBC auto 0/100wbcs Normal 0 - 2 [facility] NRBC Abs 0k/uL Normal [id number] 0 - 0.1 [facility] Neutro % 49.4% Normal [id number] 43 - 75 [facility] Neutro Absolute 1.2k/uL Below low normal [id number] 1.7 - 8.1 [facility] Imm Gran % 0.8% Above high normal [id number] 0.1 - 0. 3 [facility] Imm Gran Absolute 0.02k/uL Normal [id number] 0.01 - 0.03 [facility] Lymph % 27.3% Normal [id number] 15 - 45 [facility] Lymph Absolute 0.7k/uL Normal [id number] 0.6 - 4.9 [facility] [place] % 14.9% Above high normal [id number] 3 - 12 [facility] Monocyte Abs 0.4k/uL Normal [id number] 0.1 - 1.3 [facility] Eos % 7.2% Above high normal [id number] 0 - 6 [facility] Eosinophil Abs 0.2k/uL Normal [id number] 0 - 0.7 [facility] Basophil % 0.4% Normal [id number] 0 - 2 [facility] Basophil Abs 0k/uL Normal 0 - 0.2 [facility] CMV DNA Quant PCR Normal [id number] - [facility] [place] 64mL/min/1.73m2 Normal - [facility] Bili Direct 0.3mg/dL Normal 0 - 0.3 [facility] Sodium Lvl 137mmol/L Normal 136 - 145 [facility] Potassium Lvl 4.8mmol/L Above high normal 3.4 - 4.5 [facility] Chloride 105mmol/L Normal 98 - 107 [facility] CO2 23mmol/L Normal 20 - 31 [facility] AGAP 9mmol/L Normal 5 - 15 [facility] Glucose Lvl Random 105mg/dL Normal 65 - 140 [facility] BUN 45mg/dL Above high normal 9 - 23 [facility] Creatinine 1.26mg/dL Above high normal 0.6 - 1. 1 [facility] Calcium Lvl 10.2mg/dL Normal 8.7 - 10.4 [facility] Alk Phos 99unit/L Normal 46 - 116 [facility] AST 28unit/L Normal 0 - 33 [facility] ALT 44unit/L Normal 10 - 49 [facility] Total Protein 7.7gm/dL Normal 5.7 - 8.2 [facility] Albumin Lvl 4.1gm/dL Normal 3.2 - 4.8 [facility] Globulin 3.6gm/dL Normal 1.3 - 4.7 [facility] A/G Ratio 1.1 Normal 1 - 3.8 [facility] Bili Total 0.7mg/dL Normal 0.2 - 1.1 [facility] Magnesium Lvl 1.3mg/dL Below low normal 1.6 - 2.6 [facility] Tacrolimus Lvl 8.2ng/mL Normal 5 - 19 [facility] PT 15.3sec Above high normal 12.2 - 14.8 [facility] INR 1.2 Normal [id number] 0.8 - 1.2 [facility] WBC 2.85k/uL Below low normal [id number] 4 - 10.8 [facility] RBC 3.04million/uL Below low normal [id number] 4.2 - 5.5 [facility] Hgb 8.6gm/dL Below low normal [id number] 12.5 - 16.5 [facility] Hct 26.1% Below low normal [id number] 37.5 - 49.5 [facility] MCV 85.9FL Normal [id number] 81 - 100 [facility] MCH 28.3pg Normal 27 - 31 [facility] MCHC 33gm/dL Normal 31 - 36 [facility] RDW 15.7% Above high normal [id number] 11.5 - 15.5 [facility] Platelet 127k/uL Below low normal [id number] 145 - 400 [facility] MPV 10.4FL Normal [id number] 7.5 - 10.4 [facility] NRBC auto 0/100wbcs Normal [id number] 0 - 2 [facility] NRBC Abs 0k/uL Normal 0 - 0.1 [facility] Neutro % 50.5% Normal [id number] 43 - 75 [facility] Neutro Absolute 1.4k/uL Below low normal [id number] 1.7 - 8.1 [facility] Imm Gran % 2.1% Above high normal [id number] 0.1 - 0. 3 [facility] Imm Gran Absolute 0.06k/uL Above high normal [id number] 5 0.01 - 0.03 [facility] Lymph % 22.8% Normal [id number] 15 - 45 [facility] Lymph Absolute 0.6k/uL Normal [id number] 0.6 - 4.9 [facility] [place] % 14% Above high normal [id number] 3 - 12 [facility] Monocyte Abs 0.4k/uL Normal [id number] 0.1 - 1.3 [facility] Eos % 9.5% Above high normal 0 - 6 [facility] Eosinophil Abs 0.3k/uL Normal 0 - 0.7 [facility] Basophil % 1.1% Normal 0 - 2 [facility] Basophil Abs 0k/uL Normal 0 - 0.2 [facility] CMV DNA Quant PCR Normal [id number] - [facility] Tacrolimus Lvl 6.2ng/mL Normal [id number] 5 - 19 [facility] [place] 52mL/min/1.73m2 Below low normal [id number] - [facility] Bili Direct 0.36mg/dL Above high normal [id number] 0 - 0.3 [facility] Magnesium Lvl 1.4mg/dL Below low normal [id number] 1.6 - 2.6 [facility] Sodium Lvl 137mmol/L Normal [id number] 136 - 145 [facility] Potassium Lvl 5mmol/L Above high normal [id number] 3.4 - 4.5 [facility] Chloride 107mmol/L Normal [id number] 98 - 107 [facility] CO2 25mmol/L Normal [id number] 20 - 31 [facility] AGAP 5mmol/L Normal [id number] 5 - 15 [facility] Glucose Lvl Random 94mg/dL Normal [id number] 65 - 140 [facility] BUN 53mg/dL Above high normal [id number] 9 - 23 [facility] Creatinine 1.5mg/dL Above high normal [id number] 0.6 - 1. 1 [facility] Calcium Lvl 10.6mg/dL Above high normal [id number] 8.7 - 10.4 [facility] Alk Phos 98unit/L Normal [id number] 46 - 116 [facility] AST 48unit/L Above high normal [id number] 0 - 33 [facility] ALT 71unit/L Above high normal [id number] 10 - 49 [facility] Total Protein 7.7gm/dL Normal [id number] 5.7 - 8.2 [facility] Albumin Lvl 4.2gm/dL Normal [id number] 3.2 - 4.8 [facility] Globulin 3.5gm/dL Normal [id number] 1.3 - 4.7 [facility] A/G Ratio 1.2 Normal [id number] 1 - 3.8 [facility] Bili Total 0.7mg/dL Normal [id number] 0.2 - 1.1 [facility] PT 15sec Above high normal [id number] 12.2 - 14.8 [facility] INR 1.2 Normal [id number] 0.8 - 1.2 [facility] WBC 2.97k/uL Below low normal 577832927194 4 - 10.8 [facility] RBC 2.96million/uL Below low normal [id number] 4.2 - 5.5 [facility] Hgb 8.4gm/dL Below low normal [id number] 12.5 - 16.5 [facility] Hct 25.4% Below low normal [id number] 37.5 - 49.5 [facility] MCV 85.8FL Normal [id number] 81 - 100 [facility] MCH 28.4pg Normal [id number] 27 - 31 [facility] MCHC 33.1gm/dL Normal [id number] 31 - 36 [facility] RDW 15.8% Above high normal [id number] 11.5 - 15.5 [facility] Platelet 107k/uL Below low normal [id number] 145 - 400 [facility] MPV 11.3FL Above high normal [id number] 7.5 - 10.4 [facility] NRBC auto 0/100wbcs Normal [id number] 0 - 2 [facility] NRBC Abs 0k/uL Normal [id number] 0 - 0.1 [facility] Neutro % 42.1% Below low normal [id number] 43 - 75 [facility] Neutro Absolute 1.2k/uL Below low normal [id number] 1.7 - 8.1 [facility] Imm Gran % 2.7% Above high normal 852441797072 0.1 - 0. 3 [facility] Imm Gran Absolute 0.08k/uL Above high normal 13663464596 4 0.01 - 0.03 [facility] Lymph % 26.9% Normal [id number] 15 - 45 [facility] Lymph Absolute 0.8k/uL Normal [id number] 0.6 - 4.9 [facility] [place] % 16.8% Above high normal 532068441052 3 - 12 [facility] Monocyte Abs 0.5k/uL Normal [id number] 0.1 - 1.3 [facility] Eos % 10.8% Above high normal [id number] 0 - 6 [facility] Eosinophil Abs 0.3k/uL Normal 085338145500 0 - 0.7 [facility] Basophil % 0.7% Normal [id number] 0 - 2 [facility] Basophil Abs 0k/uL Normal [id number] 0 - 0.2 [facility] G[facility] [place] 59mL/min/1.73m2 Below low normal [id number] - [facility] Sodium Lvl 136mmol/L Normal [id number] 136 - 145 [facility] Potassium Lvl 4.9mmol/L Above high normal 535847306660 3.4 - 4.5 [facility] Chloride 107mmol/L Normal 716325925613 98 - 107 [facility] CO2 22mmol/L Normal [id number] 20 - 31 [facility] AGAP 7mmol/L Normal [id number] 5 - 15 [facility] Glucose Lvl Random 100mg/dL Normal [id number] 65 - 140 [facility] BUN 47mg/dL Above high normal 368107615124 9 - 23 [facility] Creatinine 1.36mg/dL Above high normal [id number] 0.6 - 1. 1 [facility] Calcium Lvl 10.1mg/dL Normal [id number] 8.7 - 10.4 [facility] Alk Phos 88unit/L Normal [id number] 46 - 116 [facility] AST 53unit/L Above high normal [id number] 0 - 33 [facility] ALT 68unit/L Above high normal [id number] 10 - 49 [facility] Total Protein 7.4gm/dL Normal 577154576810 5.7 - 8.2 [facility] Albumin Lvl 3.9gm/dL Normal [id number] 3.2 - 4.8 [facility] Globulin 3.5gm/dL Normal [id number] 1.3 - 4.7 [facility] A/G Ratio 1.1 Normal [id number] 1 - 3.8 [facility] Bili Total 0.8mg/dL Normal [id number] 0.2 - 1.1 [facility] Bili Direct 0.39mg/dL Above high normal 101399963520 0 - 0.3 [facility] GLUCOMETER 139mg/dL Normal [id number] 65 - 140 [facility] Tacrolimus Lvl 12.2ng/mL Normal [id number] 5 - 19 [facility] GLUCOMETER 107mg/dL Normal [id number] 65 - 140 [facility] [place] 102mL/min/1.73m2 Normal [id number] - [facility] Phosphorus Lvl 4.8mg/dL Normal [id number] 2.4 - 5.1 [facility] Magnesium Lvl 1.5mg/dL Below low normal 447611204382 1.6 - 2.6 [facility] Sodium Lvl 127mmol/L Below low normal 696568086241 136 - 145 [facility] Potassium Lvl 4.9mmol/L Above high normal 119168227848 3.4 - 4.5 [facility] Chloride 97mmol/L Below low normal 560296686128 98 - 107 [facility] CO2 24mmol/L Normal [id number] 20 - 31 [facility] AGAP 6mmol/L Normal 548209945660 5 - 15 [facility] Glucose Lvl Random 100mg/dL Normal [id number] 65 - 140 [facility] BUN 31mg/dL Above high normal [id number] 9 - 23 [facility] Creatinine 0.76mg/dL Normal [id number] 0.6 - 1.1 [facility] Calcium Lvl 9mg/dL Normal 762235419474 8.7 - 10.4 [facility] Alk Phos 70unit/L Normal [id number] 46 - 116 [facility] AST 26unit/L Normal [id number] 0 - 33 [facility] ALT 17unit/L Normal [id number] 10 - 49 [facility] Total Protein 6.7gm/dL Normal 947098510979 5.7 - 8.2 [facility] Albumin Lvl 3.5gm/dL Normal [id number] 3.2 - 4.8 [facility] Globulin 3.2gm/dL Normal 642080561130 1.3 - 4.7 [facility] A/G Ratio 1.1 Normal [id number] 1 - 3.8 [facility] Bili Total 0.6mg/dL Normal [id number] 0.2 - 1.1 [facility] PT 14.4sec Normal [id number] 12.2 - 14.8 [facility] INR 1.1 Normal 421454037169 0.8 - 1.2 [facility] WBC 2.42k/uL Below low normal [id number] 4 - 10.8 [facility] RBC 2.6million/uL Below low normal 756046365554 4.2 - 5.5 [facility] Hgb 7.6gm/dL Below low normal 340267324221 12.5 - 16.5 [facility] Hct 21.1% Below low normal [id number] 37.5 - 49.5 [facility] MCV 81.2FL Normal [id number] 81 - 100 [facility] MCH 29.2pg Normal [id number] 27 - 31 [facility] MCHC 36gm/dL Normal [id number] 31 - 36 [facility] RDW 15% Normal [id number] 11.5 - 15.5 [facility] Platelet 75k/uL Below low normal [id number] 145 - 400 [facility] MPV 11.6FL Above high normal 552951062253 7.5 - 10.4 [facility] NRBC auto 0/100wbcs Normal [id number] 0 - 2 [facility] NRBC Abs 0k/uL Normal [id number] 0 - 0.1 [facility] Neutro % 51.8% Normal [id number] 43 - 75 [facility] Neutro Absolute 1.2k/uL Below low normal [id number] 1.7 - 8.1 [facility] Imm Gran % 1.2% Above high normal 593799332704 0.1 - 0. 3 [facility] Imm Gran Absolute 0.03k/uL Normal [id number] 0.01 - 0.03 [facility] Lymph % 20.2% Normal [id number] 15 - 45 [facility] Lymph Absolute 0.5k/uL Below low normal 344279018378 0.6 - 4.9 [facility] [place] % 16.5% Above high normal 607415643867 3 - 12 [facility] Monocyte Abs 0.4k/uL Normal [id number] 0.1 - 1.3 [facility] Eos % 9.9% Above high normal [id number] 0 - 6 [facility] Eosinophil Abs 0.2k/uL Normal [id number] 0 - 0.7 [facility] Basophil % 0.4% Normal [id number] 0 - 2 [facility] Basophil Abs 0k/uL Normal 521722865539 0 - 0.2 [facility] GLUCOMETER 109mg/dL Normal 876089822568 65 - 140 [facility] G[facility] [place] 98mL/min/1.73m2 Normal [id number] - [facility] Sodium Lvl 125mmol/L Below low normal 587442095976 136 - 145 [facility] Potassium Lvl 4.5mmol/L Normal 589313169370 3.4 - 4.5 [facility] Chloride 96mmol/L Below low normal 433967058932 98 - 107 [facility] CO2 23mmol/L Normal [id number] 20 - 31 [facility] AGAP 6mmol/L Normal [id number] 5 - 15 [facility] Glucose Lvl Random 101mg/dL Normal 758390325324 65 - 140 [facility] BUN 27mg/dL Above high normal 004803706038 9 - 23 [facility] Creatinine 0.87mg/dL Normal [id number] 0.6 - 1.1 [facility] Calcium Lvl 9.2mg/dL Normal 931437500154 8.7 - 10.4 [facility] GLUCOMETER 108mg/dL Normal [id number] 65 - 140 [facility] Tacrolimus Lvl 17.9ng/mL Normal 919981567697 5 - 19 [facility] GLUCOMETER 158mg/dL Above high normal [id number] 65 - 140 [facility] GLUCOMETER 99mg/dL Normal 298173932582 65 - 140 [facility] Segs Man 61% Normal [id number] 43 - 75 [facility] Lymph Man 23% Normal [id number] 15 - 45 [facility] Monocyte Man 8% Normal 831744366142 3 - 12 [facility] Eos Man 8% Above high normal [id number] 0 - 6 [facility] Basophil Man 0% Normal [id number] 0 - 2 [facility] Neut Abs Count 1.6k/uL Below low normal 882996842514 1.7 - 8.1 [facility] Anisocyte Abnormal 504117211845 [facility] Polychrom Abnormal 889365439239 [facility] RBC Morph Normal 527585127122 - [facility] Platelet Est Abnormal 276557098886 - [facility] Ovalocytes Abnormal 117629508271 [facility] Microcyte Abnormal 231546294766 [facility] [place] 103mL/min/1.73m2 Normal [id number] - [facility] Sodium Lvl 124mmol/L Below low normal 312252151752 136 - 145 [facility] Potassium Lvl 5.3mmol/L Above high normal 573618053750 3.4 - 4.5 [facility] Chloride 97mmol/L Below low normal 225247871037 98 - 107 [facility] CO2 21mmol/L Normal [id number] 20 - 31 [facility] AGAP 6mmol/L Normal 897094920899 5 - 15 [facility] Glucose Lvl Random 86mg/dL Normal 751309627090 65 - 140 [facility] BUN 12mg/dL Normal [id number] 9 - 23 [facility] Creatinine 0.73mg/dL Normal [id number] 0.6 - 1.1 [facility] Calcium Lvl 8.9mg/dL Normal [id number] 8.7 - 10.4 [facility] Alk Phos 67unit/L Normal [id number] 46 - 116 [facility] AST 30unit/L Normal [id number] 0 - 33 [facility] ALT 16unit/L Normal [id number] 10 - 49 [facility] Total Protein 6.6gm/dL Normal [id number] 5.7 - 8.2 [facility] Albumin Lvl 3.3gm/dL Normal 808460417019 3.2 - 4.8 [facility] Globulin 3.3gm/dL Normal 557820442316 1.3 - 4.7 [facility] A/G Ratio 1 Normal [id number] 1 - 3.8 [facility] Bili Total 0.8mg/dL Normal [id number] 0.2 - 1.1 [facility] Magnesium Lvl 1.4mg/dL Below low normal 511446552588 1.6 - 2.6 [facility] Phosphorus Lvl 4.8mg/dL Normal 394682508350 2.4 - 5.1 [facility] PT 14.6sec Normal [id number] 12.2 - 14.8 [facility] INR 1.1 Normal [id number] 0.8 - 1.2 [facility] WBC 2.56k/uL Below low normal 363170857791 4 - 10.8 [facility] RBC 2.69million/uL Below low normal [id number] 4.2 - 5.5 [facility] Hgb 7.4gm/dL Below low normal 976836488594 12.5 - 16.5 [facility] Hct 21.9% Below low normal 420539540652 37.5 - 49.5 [facility] MCV 81.4FL Normal [id number] 81 - 100 [facility] MCH 27.5pg Normal [id number] 27 - 31 [facility] MCHC 33.8gm/dL Normal [id number] 31 - 36 [facility] RDW 15.1% Normal [id number] 11.5 - 15.5 [facility] Platelet 75k/uL Below low normal 538615021608 145 - 400 [facility] MPV 10.8FL Above high normal [id number] 7.5 - 10.4 [facility] NRBC auto 0/100wbcs Normal [id number] 0 - 2 [facility] NRBC Abs 0k/uL Normal [id number] 0 - 0.1 [facility] Neutro % 47.6% Normal [id number] 43 - 75 [facility] Neutro Absolute 1.2k/uL Below low normal [id number] 1.7 - 8.1 [facility] Imm Gran % 1.6% Above high normal [id number] 0.1 - 0. 3 [facility] Imm Gran Absolute 0.04k/uL Above high normal 72070047764 9 0.01 - 0.03 [facility] Lymph % 19.9% Normal [id number] 15 - 45 [facility] Lymph Absolute 0.5k/uL Below low normal [id number] 0.6 - 4.9 [facility] [place] % 20.3% Above high normal [id number] 3 - 12 [facility] Monocyte Abs 0.5k/uL Normal [id number] 0.1 - 1.3 [facility] Eos % 9.8% Above high normal 760322008602 0 - 6 [facility] Eosinophil Abs 0.2k/uL Normal [id number] 0 - 0.7 [facility] Basophil % 0.8% Normal [id number] 0 - 2 [facility] Basophil Abs 0k/uL Normal [id number] 0 - 0.2 [facility] GFR [facility] [place] 101mL/min/1.73m2 Normal [id number] - [facility] Sodium Lvl 123mmol/L Below low normal [id number] 136 - 145 [facility] Potassium Lvl 5mmol/L Above high normal [id number] 3.4 - 4.5 [facility] Chloride 97mmol/L Below low normal [id number] 98 - 107 [facility] CO2 22mmol/L Normal [id number] 20 - 31 [facility] AGAP 4mmol/L Below low normal [id number] 5 - 15 [facility] Glucose Lvl Random 103mg/dL Normal [id number] 65 - 140 [facility] BUN 12mg/dL Normal [id number] 9 - 23 [facility] Creatinine 0.78mg/dL Normal [id number] 0.6 - 1.1 [facility] Calcium Lvl 9mg/dL Normal 983705015741 8.7 - 10.4 [facility] GLUCOMETER 112mg/dL Normal [id number] 65 - 140 [facility] [place] 102mL/min/1.73m2 Normal [id number] - [facility] Sodium Lvl 124mmol/L Below low normal [id number] 136 - 145 [facility] Potassium Lvl 4.8mmol/L Above high normal [id number] 3.4 - 4.5 [facility] Chloride 95mmol/L Below low normal [id number] 98 - 107 [facility] CO2 22mmol/L Normal [id number] 20 - 31 [facility] AGAP 7mmol/L Normal [id number] 5 - 15 [facility] Glucose Lvl Random 103mg/dL Normal [id number] 65 - 140 [facility] BUN 13mg/dL Normal [id number] 9 - 23 [facility] Creatinine 0.74mg/dL Normal [id number] 0.6 - 1.1 [facility] Calcium Lvl 9.2mg/dL Normal [id number] 8.7 - 10.4 [facility] GLUCOMETER 105mg/dL Normal [id number] 65 - 140 [facility] [place] 103mL/min/1.73m2 Normal [id number] - [facility] Sodium Lvl 124mmol/L Below low normal [id number] 136 - 145 [facility] Potassium Lvl 4.7mmol/L Above high normal [id number] 3.4 - 4.5 [facility] Chloride 96mmol/L Below low normal [id number] 98 - 107 [facility] CO2 22mmol/L Normal [id number] - 31 [facility] AGAP 6mmol/L Normal [id number] 5 - 15 [facility] Glucose Lvl Random 121mg/dL Normal [id number] 65 - 140 [facility] BUN 12mg/dL Normal [id number] 9 - 23 [facility] Creatinine 0.73mg/dL Normal [id number] 0.6 - 1.1 [facility] Calcium Lvl 9.1mg/dL Normal [id number] 8.7 - 10.4 [facility] GLUCOMETER 167mg/dL Above high normal [id number] 65 - 140 [facility] [place] 103mL/min/1.73m2 Normal [id number] - [facility] Sodium Lvl 123mmol/L Below low normal [id number] 136 - 145 [facility] Potassium Lvl 4.5mmol/L Normal [id number] 3.4 - 4.5 [facility] Chloride 96mmol/L Below low normal [id number] 98 - 107 [facility] CO2 22mmol/L Normal [id number] 20 - 31 [facility] AGAP 5mmol/L Normal [id number] 5 - 15 [facility] Glucose Lvl Random 147mg/dL Above high normal [id number] 65 - 140 [facility] BUN 10mg/dL Normal [id number] 9 - 23 [facility] Creatinine 0.73mg/dL Normal [id number] 0.6 - 1.1 [facility] Calcium Lvl 9.3mg/dL Normal [id number] 8.7 - 10.4 [facility] GLUCOMETER 103mg/dL Normal [id number] 65 - 140 [facility] Tacrolimus Lvl 7.4ng/mL Normal [id number] 5 - 19 [facility] [place] 102mL/min/1.73m2 Normal [id number] - [facility] Phosphorus Lvl 4.8mg/dL Normal [id number] 2.4 - 5.1 [facility] Magnesium Lvl 1.6mg/dL Normal [id number] 1.6 - 2.6 [facility] Sodium Lvl 124mmol/L Below low normal 738238326093 136 - 145 [facility] Potassium Lvl 4.7mmol/L Above high normal 989183966395 3.4 - 4.5 [facility] Chloride 97mmol/L Below low normal 742880428635 98 - 107 [facility] CO2 22mmol/L Normal [id number] 20 - 31 [facility] AGAP 5mmol/L Normal [id number] 5 - 15 [facility] Glucose Lvl Random 88mg/dL Normal [id number] 65 - 140 [facility] BUN 10mg/dL Normal [id number] 9 - 23 [facility] Creatinine 0.74mg/dL Normal [id number] 0.6 - 1.1 [facility] Calcium Lvl 8.9mg/dL Normal [id number] 8.7 - 10.4 [facility] Sodium Lvl 124mmol/L Below low normal 651770946734 136 - 145 [facility] Potassium Lvl 4.7mmol/L Above high normal 328373713952 3.4 - 4.5 [facility] Chloride 97mmol/L Below low normal [id number] 98 - 107 [facility] CO2 22mmol/L Normal [id number] 20 - 31 [facility] AGAP 5mmol/L Normal [id number] 5 - 15 [facility] Glucose Lvl Random 88mg/dL Normal [id number] 65 - 140 [facility] BUN 10mg/dL Normal [id number] 9 - 23 [facility] Creatinine 0.74mg/dL Normal [id number] 0.6 - 1.1 [facility] Calcium Lvl 8.9mg/dL Normal [id number] 8.7 - 10.4 [facility] Alk Phos 68unit/L Normal [id number] 46 - 116 [facility] AST 22unit/L Normal [id number] 0 - 33 [facility] ALT 17unit/L Normal [id number] 10 - 49 [facility] Total Protein 6.3gm/dL Normal [id number] 5.7 - 8.2 [facility] Albumin Lvl 3.4gm/dL Normal [id number] 3.2 - 4.8 [facility] Globulin 2.9gm/dL Normal [id number] 1.3 - 4.7 [facility] A/G Ratio 1.2 Normal [id number] 1 - 3.8 [facility] Bili Total 0.6mg/dL Normal [id number] 0.2 - 1.1 [facility] PT 14.9sec Above high normal [id number] 12.2 - 14.8 [facility] INR 1.1 Normal [id number] 0.8 - 1.2 [facility] WBC 2.26k/uL Below low normal [id number] 4 - 10.8 [facility] RBC 2.4million/uL Below low normal [id number] 4.2 - 5.5 [facility] Hgb 6.7gm/dL Below low normal 024384469913 12.5 - 16.5 [facility] Hct 19.8% Critically low 328905338997 37.5 - 49.5 [facility] MCV 82.5FL Normal [id number] 81 - 100 [facility] MCH 27.9pg Normal [id number] 27 - 31 [facility] MCHC 33.8gm/dL Normal [id number] 31 - 36 [facility] RDW 15.3% Normal [id number] 11.5 - 15.5 [facility] Platelet 68k/uL Below low normal [id number] 145 - 400 [facility] MPV 11.3FL Above high normal 959077102065 7.5 - 10.4 [facility] NRBC auto 1/100wbcs Normal [id number] 0 - 2 [facility] NRBC Abs 0k/uL Normal [id number] 0 - 0.1 [facility] Neutro % 47.4% Normal [id number] 43 - 75 [facility] Neutro Absolute 1.1k/uL Below low normal [id number] 1.7 - 8.1 [facility] Imm Gran % 1.8% Above high normal 060194293107 0.1 - 0. 3 [facility] Imm Gran Absolute 0.04k/uL Above high normal 84246227097 1 0.01 - 0.03 [facility] Lymph % 20.8% Normal [id number] 15 - 45 [facility] Lymph Absolute 0.5k/uL Below low normal [id number] 0.6 - 4.9 [facility] [place] % 19.9% Above high normal [id number] 3 - 12 [facility] Monocyte Abs 0.4k/uL Normal [id number] 0.1 - 1.3 [facility] Eos % 9.7% Above high normal [id number] 0 - 6 [facility] Eosinophil Abs 0.2k/uL Normal 783701295415 0 - 0.7 [facility] Basophil % 0.4% Normal [id number] 0 - 2 [facility] Basophil Abs 0k/uL Normal 530907977713 0 - 0.2 [facility] Lactic Acid Lvl 0.9mmol/L Normal [id number] 0.5 - 2.2 [facility] [place] 101mL/min/1.73m2 Normal 604341083834 - [facility] Sodium Lvl 124mmol/L Below low normal [id number] 136 - 145 [facility] Potassium Lvl 4.8mmol/L Above high normal [id number] 3.4 - 4.5 [facility] Chloride 98mmol/L Normal [id number] 98 - 107 [facility] CO2 23mmol/L Normal [id number] 20 - 31 [facility] AGAP 3mmol/L Below low normal [id number] 5 - 15 [facility] Glucose Lvl Random 91mg/dL Normal [id number] 65 - 140 [facility] BUN 10mg/dL Normal [id number] 9 - 23 [facility] Creatinine 0.78mg/dL Normal [id number] 0.6 - 1.1 [facility] Calcium Lvl 8.7mg/dL Normal [id number] 8.7 - 10.4 [facility] Lactic Acid Lvl Send to [facility] Normal 941967023771 0.5 - 2. 2 [facility] GLUCOMETER 111mg/dL Normal [id number] 65 - 140 [facility] [place] 103mL/min/1.73m2 Normal [id number] - [facility] Sodium Lvl 122mmol/L Below low normal [id number] 136 - 145 [facility] Potassium Lvl 4.5mmol/L Normal 882583068042 3.4 - 4.5 [facility] Chloride 96mmol/L Below low normal [id number] 98 - 107 [facility] CO2 20mmol/L Normal [id number] 20 - 31 [facility] AGAP 6mmol/L Normal [id number] 5 - 15 [facility] Glucose Lvl Random 142mg/dL Above high normal [id number] 65 - 140 [facility] BUN 10mg/dL Normal [id number] 9 - 23 [facility] Creatinine 0.73mg/dL Normal [id number] 0.6 - 1.1 [facility] Calcium Lvl 8.6mg/dL Below low normal [id number] 8.7 - 10.4 [facility] CMV DNA Quant PCR Normal [id number] - [facility] CMV DNA Quant PCR Normal [id number] - [facility] GLUCOMETER 158mg/dL Above high normal [id number] 65 - 140 [facility] [place] 103mL/min/1.73m2 Normal [id number] - [facility] Sodium Lvl 122mmol/L Below low normal [id number] 136 - 145 [facility] Potassium Lvl 4.3mmol/L Normal [id number] 3.4 - 4.5 [facility] Chloride 94mmol/L Below low normal 677962153578 98 - 107 [facility] CO2 22mmol/L Normal [id number] 20 - 31 [facility] AGAP 6mmol/L Normal [id number] 5 - 15 [facility] Glucose Lvl Random 125mg/dL Normal [id number] 65 - 140 [facility] BUN 11mg/dL Normal [id number] 9 - 23 [facility] Creatinine 0.73mg/dL Normal 772865780077 0.6 - 1.1 [facility] Calcium Lvl 9.1mg/dL Normal 736054932586 8.7 - 10.4 [facility] Tacrolimus Lvl 9.4ng/mL Normal [id number] 5 - 19 [facility] [place] 102mL/min/1.73m2 Normal [id number] - [facility] Magnesium Lvl 1.5mg/dL Below low normal 861175399912 1.6 - 2.6 [facility] Sodium Lvl 123mmol/L Below low normal 550624966530 136 - 145 [facility] Potassium Lvl 5mmol/L Above high normal [id number] 3.4 - 4.5 [facility] Chloride 96mmol/L Below low normal 625325357626 98 - 107 [facility] CO2 22mmol/L Normal [id number] 20 - 31 [facility] AGAP 5mmol/L Normal [id number] 5 - 15 [facility] Glucose Lvl Random 98mg/dL Normal [id number] 65 - 140 [facility] BUN 12mg/dL Normal [id number] 9 - 23 [facility] Creatinine 0.74mg/dL Normal [id number] 0.6 - 1.1 [facility] Calcium Lvl 9mg/dL Normal 698813986074 8.7 - 10.4 [facility] Alk Phos 69unit/L Normal [id number] 46 - 116 [facility] AST 28unit/L Normal [id number] 0 - 33 [facility] ALT 15unit/L Normal [id number] 10 - 49 [facility] Total Protein 6.4gm/dL Normal [id number] 5.7 - 8.2 [facility] Albumin Lvl 3.4gm/dL Normal [id number] 3.2 - 4.8 [facility] Globulin 3gm/dL Normal [id number] 1.3 - 4.7 [facility] A/G Ratio 1.1 Normal [id number] 1 - 3.8 [facility] Bili Total 0.7mg/dL Normal [id number] 0.2 - 1.1 [facility] Phosphorus Lvl 5mg/dL Normal [id number] 2.4 - 5.1 [facility] PT 15sec Above high normal [id number] 12.2 - 14.8 [facility] INR 1.2 Normal [id number] 0.8 - 1.2 [facility] WBC 2.74k/uL Below low normal 396672217355 4 - 10.8 [facility] RBC 2.52million/uL Below low normal [id number] 4.2 - 5.5 [facility] Hgb 7.2gm/dL Below low normal [id number] 12.5 - 16.5 [facility] Hct 20.5% Below low normal [id number] 37.5 - 49.5 [facility] MCV 81.3FL Normal [id number] 81 - 100 [facility] MCH 28.6pg Normal [id number] 27 - 31 [facility] MCHC 35.1gm/dL Normal [id number] 31 - 36 [facility] RDW 15.5% Normal [id number] 11.5 - 15.5 [facility] Platelet 68k/uL Below low normal [id number] 145 - 400 [facility] MPV 11.6FL Above high normal 390907383812 7.5 - 10.4 [facility] NRBC auto 0/100wbcs Normal [id number] 0 - 2 [facility] NRBC Abs 0k/uL Normal [id number] 0 - 0.1 [facility] Neutro % 55.8% Normal [id number] 43 - 75 [facility] Neutro Absolute 1.5k/uL Below low normal [id number] 1.7 - 8.1 [facility] Imm Gran % 1.5% Above high normal [id number] 0.1 - 0. 3 [facility] Imm Gran Absolute 0.04k/uL Above high normal 84007920270 2 0.01 - 0.03 [facility] Lymph % 17.9% Normal [id number] 15 - 45 [facility] Lymph Absolute 0.5k/uL Below low normal [id number] 0.6 - 4.9 [facility] [place] % 16.1% Above high normal [id number] 3 - 12 [facility] Monocyte Abs 0.4k/uL Normal 939916442672 0.1 - 1.3 [facility] Eos % 8% Above high normal [id number] 0 - 6 [facility] Eosinophil Abs 0.2k/uL Normal [id number] 0 - 0.7 [facility] Basophil % 0.7% Normal [id number] 0 - 2 [facility] Basophil Abs 0k/uL Normal [id number] 0 - 0.2 [facility] Magnesium Lvl 1.1mg/dL Below low normal [id number] 1.6 - 2.6 [facility] Phosphorus Lvl 5mg/dL Normal 723771593566 2.4 - 5.1 [facility] Osmolality 258mOsm/kg Below low normal 997176498419 275 - 30 0 [facility] T4 3.3mcg/dL Below low normal [id number] 4.5 - 10.9 [facility] TSH 1.833uIU/mL Normal [id number] 0.55 - 4.78 [facility] T4 Free 0.63ng/dL Below low normal 618521046670 0.89 - 1.76 [facility] [place] 99mL/min/1.73m2 Normal [id number] - [facility] Sodium Lvl 124mmol/L Below low normal [id number] 136 - 145 [facility] Potassium Lvl 4.7mmol/L Above high normal 689737684149 3.4 - 4.5 [facility] Chloride 94mmol/L Below low normal 712356312417 98 - 107 [facility] CO2 23mmol/L Normal [id number] 20 - 31 [facility] AGAP 7mmol/L Normal [id number] 5 - 15 [facility] Glucose Lvl Random 102mg/dL Normal [id number] 65 - 140 [facility] BUN 13mg/dL Normal [id number] 9 - 23 [facility] Creatinine 0.82mg/dL Normal [id number] 0.6 - 1.1 [facility] Calcium Lvl 9.2mg/dL Normal [id number] 8.7 - 10.4 [facility] Uric Acid 4.3mg/dL Normal [id number] 3.5 - 7.2 [facility] U Sodium 135mmol/L Normal [id number] [facility] U Potassium 17mmol/L Normal [id number] [facility] U Osmolality 511mOsm/kg Normal 164802963921 300 - 900 [facility] UA Spec Grav 1.035 Above high normal [id number] 1.0 03 - 1.03 [facility] UA pH 7 Normal [id number] 5 - 8.5 [facility] UA RBC 3/hpf Normal [id number] 0 - 4 [facility] UA WBC 1/hpf Normal [id number] 0 - 5 [facility] UA Squam Epi <1 Normal [id number] 0 - 5 [facility] UA Nitrite Normal [id number] - [facility] UA Urobilinogen Normal [id number] - [facility]A Clarity Normal [id number] - [facility] UA Leuk Est Normal [id number] - [facility] UA Protein Normal [id number] - [facility] UA Glucose Normal 846533652810 - [facility] UA Bili Normal [id number] - [facility] UA Blood Normal [id number] - [facility] UA Ketones Normal [id number] - [facility] UA Bacteria Normal [id number] - [facility] UA Color Normal [id number] - [facility] UA Ascorbic Acid Normal [id number] - [facility] Testing Site Normal [id number] [facility] ABORh Int O POS Normal [id number] [facility] AbSc 2C Int Normal [id number] [facility] COVID-19/Coronavir us RNA PCR Normal [id number] [facility] Magnesium Lvl 0.8mg/dL Critically low 360108623202 1.6 - 2. 6 [facility] PT 15.6sec Above high normal 188688079861 12.2 - 14.8 [facility] INR 1.2 Normal [id number] 0.8 - 1.2 [facility] [place] 98mL/min/1.73m2 Normal [id number] - [facility] Phosphorus Lvl 4.9mg/dL Normal 523965290805 2.4 - 5.1 [facility] Sodium Lvl 124mmol/L Below low normal [id number] 136 - 145 [facility] Potassium Lvl 4.6mmol/L Above high normal 789193459594 3.4 - 4.5 [facility] Chloride 95mmol/L Below low normal [id number] 98 - 107 [facility] CO2 24mmol/L Normal [id number] 20 - 31 [facility] AGAP 5mmol/L Normal [id number] 5 - 15 [facility] Glucose Lvl Random 114mg/dL Normal 581701097144 65 - 140 [facility] BUN 14mg/dL Normal [id number] 9 - 23 [facility] Creatinine 0.87mg/dL Normal 751842636875 0.6 - 1.1 [facility] Calcium Lvl 9.2mg/dL Normal [id number] 8.7 - 10.4 [facility] Alk Phos 71unit/L Normal [id number] 46 - 116 [facility] AST 26unit/L Normal [id number] 0 - 33 [facility] ALT 16unit/L Normal [id number] 10 - 49 [facility] Total Protein 6.6gm/dL Normal 569244228948 5.7 - 8.2 [facility] Albumin Lvl 3.5gm/dL Normal [id number] 3.2 - 4.8 [facility] Globulin 3.1gm/dL Normal [id number] 1.3 - 4.7 [facility] A/G Ratio 1.1 Normal [id number] 1 - 3.8 [facility] Bili Total 0.5mg/dL Normal [id number] 0.2 - 1.1 [facility] WBC 2.28k/uL Below low normal 838024089988 4 - 10.8 [facility] RBC 2.42million/uL Below low normal 583990114728 4.2 - 5.5 [facility] Hgb 6.9gm/dL Below low normal 226509081733 12.5 - 16.5 [facility] Hct 20.1% Below low normal [id number] 37.5 - 49.5 [facility] MCV 83.1FL Normal 523901080078 81 - 100 [facility] MCH 28.5pg Normal [id number] 27 - 31 [facility] MCHC 34.3gm/dL Normal [id number] 31 - 36 [facility] RDW 15.5% Normal [id number] 11.5 - 15.5 [facility] Platelet 75k/uL Below low normal 656870979042 145 - 400 [facility] MPV 11.1FL Above high normal [id number] 7.5 - 10.4 [facility] NRBC auto 0/100wbcs Normal [id number] 0 - 2 [facility] NRBC Abs 0k/uL Normal [id number] 0 - 0.1 [facility] Neutro % 48.3% Normal [id number] 43 - 75 [facility] Neutro Absolute 1.1k/uL Below low normal 772767403319 1.7 - 8.1 [facility] Imm Gran % 0.9% Above high normal 836956477075 0.1 - 0. 3 [facility] Imm Gran Absolute 0.02k/uL Normal 690659833405 0.01 - 0.03 [facility] Lymph % 23.2% Normal [id number] 15 - 45 [facility] Lymph Absolute 0.5k/uL Below low normal [id number] 0.6 - 4.9 [facility] [place] % 17.1% Above high normal [id number] 3 - 12 [facility] Monocyte Abs 0.4k/uL Normal 854898851822 0.1 - 1.3 [facility] Eos % 9.6% Above high normal [id number] 0 - 6 [facility] Eosinophil Abs 0.2k/uL Normal 531940597861 0 - 0.7 [facility] Basophil % 0.9% Normal [id number] 0 - 2 [facility] Basophil Abs 0k/uL Normal [id number] 0 - 0.2 [facility] G[facility] [place] 97mL/min/1.73m2 Normal [id number] - [facility] Alk Phos 73unit/L Normal [id number] 46 - 116 [facility] AST 29unit/L Normal [id number] 0 - 33 [facility] ALT 18unit/L Normal [id number] 10 - 49 [facility] Total Protein 6.8gm/dL Normal 464127542454 5.7 - 8.2 [facility] Albumin Lvl 3.6gm/dL Normal [id number] 3.2 - 4.8 [facility] Globulin 3.2gm/dL Normal [id number] 1.3 - 4.7 [facility] A/G Ratio 1.1 Normal [id number] 1 - 3.8 [facility] Bili Total 0.6mg/dL Normal [id number] 0.2 - 1.1 [facility] Bili Direct 0.27mg/dL Normal 668809349944 0 - 0.3 [facility] Sodium Lvl 124mmol/L Below low normal 328359495057 136 - 145 [facility] Potassium Lvl 4.8mmol/L Above high normal 108053815266 3.4 - 4.5 [facility] Chloride 94mmol/L Below low normal 118244773012 98 - 107 [facility] CO2 23mmol/L Normal [id number] 20 - 31 [facility] AGAP 7mmol/L Normal [id number] 5 - 15 [facility] Glucose Lvl Random 104mg/dL Normal [id number] 65 - 140 [facility] BUN 14mg/dL Normal [id number] 9 - 23 [facility] Creatinine 0.89mg/dL Normal [id number] 0.6 - 1.1 [facility] Calcium Lvl 9.3mg/dL Normal 293818504422 8.7 - 10.4 [facility] GLUCOMETER 97mg/dL Normal 247665302426 65 - 140 [facility] GLUCOMETER 92mg/dL Normal [id number] 65 - 140 [facility] Tacrolimus Lvl 13.7ng/mL Normal [id number] 5 - 19 [facility] Magnesium Lvl 0.9mg/dL Critically low 256910594953 1.6 - 2. 6 [facility] [place] 76mL/min/1.73m2 Normal [id number] - [facility] Sodium Lvl 123mmol/L Below low normal 009467114661 136 - 145 [facility] Potassium Lvl 5.3mmol/L Above high normal 863970855195 3.4 - 4.5 [facility] Chloride 95mmol/L Below low normal [id number] 98 - 107 [facility] CO2 23mmol/L Normal [id number] 20 - 31 [facility] AGAP 5mmol/L Normal [id number] 5 - 15 [facility] Glucose Lvl Random 95mg/dL Normal [id number] 65 - 140 [facility] BUN 15mg/dL Normal [id number] 9 - 23 [facility] Creatinine 1.1mg/dL Normal [id number] 0.6 - 1.1 [facility] Calcium Lvl 9.8mg/dL Normal [id number] 8.7 - 10.4 [facility] Alk Phos 82unit/L Normal 386803869157 46 - 116 [facility] AST 25unit/L Normal [id number] 0 - 33 [facility] ALT 19unit/L Normal [id number] 10 - 49 [facility] Total Protein 7.5gm/dL Normal [id number] 5.7 - 8.2 [facility] Albumin Lvl 4gm/dL Normal [id number] 3.2 - 4.8 [facility] Globulin 3.5gm/dL Normal [id number] 1.3 - 4.7 [facility] A/G Ratio 1.1 Normal 974496555112 1 - 3.8 [facility] Bili Total 1mg/dL Normal 362144269492 0.2 - 1.1 [facility] Bili Direct 0.4mg/dL Above high normal 067638036466 0 - 0.3 [facility] PT 14.3sec Normal [id number] 12.2 - 14.8 [facility] INR 1.1 Normal 570778943784 0.8 - 1.2 [facility] WBC 2.92k/uL Below low normal 368263740889 4 - 10.8 [facility] RBC 2.96million/uL Below low normal 762526883227 4.2 - 5.5 [facility] Hgb 8.5gm/dL Below low normal 626059888603 12.5 - 16.5 [facility] Hct 25% Below low normal 219040288150 37.5 - 49.5 [facility] MCV 84.5FL Normal 753303910931 81 - 100 [facility] MCH 28.7pg Normal [id number] 27 - 31 [facility] MCHC 34gm/dL Normal [id number] 31 - 36 [facility] RDW 15.7% Above high normal 654848277212 11.5 - 15.5 [facility] Platelet 96k/uL Below low normal 538988394999 145 - 400 [facility] MPV 10.4FL Normal [id number] 7.5 - 10.4 [facility] NRBC auto 0/100wbcs Normal [id number] 0 - 2 [facility] NRBC Abs 0k/uL Normal [id number] 0 - 0.1 [facility] Neutro % 61.3% Normal [id number] 43 - 75 [facility] Neutro Absolute 1.8k/uL Normal [id number] 1.7 - 8.1 [facility] Imm Gran % 1.4% Above high normal 407223436028 0.1 - 0. 3 [facility] Imm Gran Absolute 0.04k/uL Above high normal 60567713508 2 0.01 - 0.03 [facility] Lymph % 17.8% Normal [id number] 15 - 45 [facility] Lymph Absolute 0.5k/uL Below low normal 213408384886 0.6 - 4.9 [facility] [place] % 11.3% Normal [id number] 3 - 12 [facility] Monocyte Abs 0.3k/uL Normal [id number] 0.1 - 1.3 [facility] Eos % 7.9% Above high normal 617490868321 0 - 6 [facility] Eosinophil Abs 0.2k/uL Normal 564859491383 0 - 0.7 [facility] Basophil % 0.3% Normal 422891803432 0 - 2 [facility] Basophil Abs 0k/uL Normal 841967438675 0 - 0.2 [facility] AbSc 2C Int Normal [id number] [facility] Testing Site Normal [id number] [facility] ABORh Int O POS Normal [id number] [facility] G[facility] [place] 98mL/min/1.73m2 Normal 809185603024 - [facility] Sodium Lvl 128mmol/L Below low normal 843696728175 136 - 145 [facility] Potassium Lvl 4.4mmol/L Normal 428939239985 3.4 - 4.5 [facility] Chloride 98mmol/L Normal 741560599812 98 - 107 [facility] CO2 24mmol/L Normal [id number] 20 - 31 [facility] AGAP 6mmol/L Normal [id number] 5 - 15 [facility] Glucose Lvl Random 110mg/dL Normal [id number] 65 - 140 [facility] BUN 14mg/dL Normal [id number] 9 - 23 [facility] Creatinine 0.86mg/dL Normal [id number] 0.6 - 1.1 [facility] Calcium Lvl 9.6mg/dL Normal 270595284462 8.7 - 10.4 [facility] Alk Phos 90unit/L Normal [id number] 46 - 116 [facility] AST 24unit/L Normal [id number] 0 - 33 [facility] ALT 20unit/L Normal [id number] 10 - 49 [facility] Total Protein 7.7gm/dL Normal [id number] 5.7 - 8.2 [facility] Albumin Lvl 4gm/dL Normal 761876923753 3.2 - 4.8 [facility] Globulin 3.7gm/dL Normal [id number] 1.3 - 4.7 [facility] A/G Ratio 1.1 Normal [id number] 1 - 3.8 [facility] Bili Total 0.7mg/dL Normal [id number] 0.2 - 1.1 [facility] Bili Direct 0.32mg/dL Above high normal 212388285740 0 - 0.3 [facility] WBC 3.03k/uL Below low normal 372326341941 4 - 10.8 [facility] RBC 2.89million/uL Below low normal [id number] 4.2 - 5.5 [facility] Hgb 8.3gm/dL Below low normal 497013003854 12.5 - 16.5 [facility] Hct 24.6% Below low normal [id number] 37.5 - 49.5 [facility] MCV 85.1FL Normal [id number] 81 - 100 [facility] MCH 28.7pg Normal [id number] 27 - 31 [facility] MCHC 33.7gm/dL Normal [id number] 31 - 36 [facility] RDW 16% Above high normal [id number] 11.5 - 15.5 [facility] Platelet 94k/uL Below low normal [id number] 145 - 400 [facility] MPV 10.7FL Above high normal [id number] 7.5 - 10.4 [facility] NRBC auto 0/100wbcs Normal [id number] 0 - 2 [facility] NRBC Abs 0k/uL Normal 913725090952 0 - 0.1 [facility] Neutro % 44.9% Normal [id number] 43 - 75 [facility] Neutro Absolute 1.4k/uL Below low normal [id number] 1.7 - 8.1 [facility] Imm Gran % 1.3% Above high normal [id number] 0.1 - 0. 3 [facility] Imm Gran Absolute 0.04k/uL Above high normal 96675711362 6 0.01 - 0.03 [facility] Lymph % 23.1% Normal [id number] 15 - 45 [facility] Lymph Absolute 0.7k/uL Normal [id number] 0.6 - 4.9 [facility] [place] % 17.8% Above high normal [id number] 3 - 12 [facility] Monocyte Abs 0.5k/uL Normal [id number] 0.1 - 1.3 [facility] Eos % 11.9% Above high normal [id number] 0 - 6 [facility] Eosinophil Abs 0.4k/uL Normal [id number] 0 - 0.7 [facility] Basophil % 1% Normal [id number] 0 - 2 [facility] Basophil Abs 0k/uL Normal [id number] 0 - 0.2 [facility] CMV DNA Quant PCR Normal [id number] - [facility] GFR [facility] [place] 98mL/min/1.73m2 Normal [id number] - [facility] Sodium Lvl 136mmol/L Normal [id number] 136 - 145 [facility] Potassium Lvl 5mmol/L Above high normal [id number] 3.4 - 4.5 [facility] Chloride 105mmol/L Normal [id number] 98 - 107 [facility] CO2 24mmol/L Normal [id number] 20 - 31 [facility] AGAP 7mmol/L Normal [id number] 5 - 15 [facility] Glucose Lvl Random 85mg/dL Normal [id number] 65 - 140 [facility] BUN 17mg/dL Normal [id number] 9 - 23 [facility] Creatinine 0.86mg/dL Normal [id number] 0.6 - 1.1 [facility] Calcium Lvl 9.1mg/dL Normal [id number] 8.7 - 10.4 [facility] Magnesium Lvl 1.5mg/dL Below low normal [id number] 1.6 - 2.6 [facility] Tacrolimus Lvl 16.2ng/mL Normal [id number] 5 - 19 [facility] Magnesium Lvl 0.9mg/dL Critically low [id number] 1.6 - 2. 6 [facility] GFR [facility] [place] 88mL/min/1.73m2 Normal [id number] - [facility] Bili Direct 0.4mg/dL Above high normal [id number] 0 - 0.3 [facility] Sodium Lvl 135mmol/L Below low normal [id number] 136 - 145 [facility] Potassium Lvl 5.3mmol/L Above high normal [id number] 3.4 - 4.5 [facility] Chloride 105mmol/L Normal [id number] 98 - 107 [facility] CO2 24mmol/L Normal [id number] 20 - 31 [facility] AGAP 6mmol/L Normal [id number] 5 - 15 [facility] Glucose Lvl Random 93mg/dL Normal [id number] 65 - 140 [facility] BUN 17mg/dL Normal [id number] 9 - 23 [facility] Creatinine 0.97mg/dL Normal [id number] 0.6 - 1.1 [facility] Calcium Lvl 9.7mg/dL Normal [id number] 8.7 - 10.4 [facility] Alk Phos 103unit/L Normal [id number] 46 - 116 [facility] AST 30unit/L Normal [id number] 0 - 33 [facility] ALT 27unit/L Normal [id number] 10 - 49 [facility] Total Protein 7.2gm/dL Normal [id number] 5.7 - 8.2 [facility] Albumin Lvl 3.6gm/dL Normal [id number] 3.2 - 4.8 [facility] Globulin 3.6gm/dL Normal [id number] 1.3 - 4.7 [facility] A/G Ratio 1 Normal [id number] 1 - 3.8 [facility] Bili Total 0.8mg/dL Normal [id number] 0.2 - 1.1 [facility] PT 14.6sec Normal [id number] 12.2 - 14.8 [facility] INR 1.1 Normal [id number] 0.8 - 1.2 [facility] WBC 2.67k/uL Below low normal [id number] 4 - 10.8 [facility] RBC 2.97million/uL Below low normal [id number] 4.2 - 5.5 [facility] Hgb 8.4gm/dL Below low normal [id number] 12.5 - 16.5 [facility] Hct 26.3% Below low normal [id number] 37.5 - 49.5 [facility] MCV 88.6FL Normal [id number] 81 - 100 [facility] MCH 28.3pg Normal [id number] 27 - 31 [facility] MCHC 31.9gm/dL Normal [id number] 31 - 36 [facility] RDW 16.9% Above high normal [id number] 11.5 - 15.5 [facility] Platelet 87k/uL Below low normal [id number] 145 - 400 [facility] MPV 11.1FL Above high normal 702971212636 7.5 - 10.4 [facility] NRBC auto 0/100wbcs Normal [id number] 0 - 2 [facility] NRBC Abs 0k/uL Normal [id number] 0 - 0.1 [facility] Neutro % 51.2% Normal [id number] 43 - 75 [facility] Neutro Absolute 1.4k/uL Below low normal [id number] 1.7 - 8.1 [facility] Imm Gran % 1.9% Above high normal 728839879736 0.1 - 0. 3 [facility] Imm Gran Absolute 0.05k/uL Above high normal 53558574156 4 0.01 - 0.03 [facility] Lymph % 19.9% Normal [id number] 15 - 45 [facility] Lymph Absolute 0.5k/uL Below low normal [id number] 0.6 - 4.9 [facility] [place] % 10.5% Normal [id number] 3 - 12 [facility] Monocyte Abs 0.3k/uL Normal [id number] 0.1 - 1.3 [facility] Eos % 16.1% Above high normal 002024011334 0 - 6 [facility] Eosinophil Abs 0.4k/uL Normal [id number] 0 - 0.7 [facility] Basophil % 0.4% Normal [id number] 0 - 2 [facility] Basophil Abs 0k/uL Normal [id number] 0 - 0.2 [facility] GLUCOMETER 124mg/dL Normal [id number] 65 - 140 [facility] CMV DNA Quant PCR Normal [id number] - [facility] GLUCOMETER 98mg/dL Normal [id number] 65 - 140 [facility] Tacrolimus Lvl 4.5ng/mL Below low normal 018928758390 5 - 1 9 [facility] WBC 1.88k/uL Below low normal 520163659823 4 - 10.8 [facility] RBC 2.46million/uL Below low normal [id number] 4.2 - 5.5 [facility] Hgb 7gm/dL Below low normal 229625272809 12.5 - 16.5 [facility] Hct 21.8% Below low normal 003625011004 37.5 - 49.5 [facility] MCV 88.6FL Normal [id number] 81 - 100 [facility] MCH 28.5pg Normal [id number] 27 - 31 [facility] MCHC 32.1gm/dL Normal [id number] 31 - 36 [facility] RDW 17.7% Above high normal [id number] 11.5 - 15.5 [facility] Platelet 53k/uL Below low normal [id number] 145 - 400 [facility] MPV 11.5FL Above high normal [id number] 7.5 - 10.4 [facility] NRBC auto 0/100wbcs Normal [id number] 0 - 2 [facility] NRBC Abs 0k/uL Normal [id number] 0 - 0.1 [facility] Neutro % 41.5% Below low normal [id number] 43 - 75 [facility] Neutro Absolute 0.8k/uL Below low normal [id number] 1.7 - 8.1 [facility] Imm Gran % 5.3% Above high normal 932152941541 0.1 - 0. 3 [facility] Imm Gran Absolute 0.1k/uL Above high normal 60587667731 1 0.01 - 0.03 [facility] Lymph % 22.3% Normal [id number] 15 - 45 [facility] Lymph Absolute 0.4k/uL Below low normal 639133170378 0.6 - 4.9 [facility] [place] % 12.8% Above high normal [id number] 3 - 12 [facility] Monocyte Abs 0.2k/uL Normal [id number] 0.1 - 1.3 [facility] Eos % 17% Above high normal [id number] 0 - 6 [facility] Eosinophil Abs 0.3k/uL Normal 649592666518 0 - 0.7 [facility] Basophil % 1.1% Normal [id number] 0 - 2 [facility] Basophil Abs 0k/uL Normal [id number] 0 - 0.2 [facility] GFR [facility] [place] 99mL/min/1.73m2 Normal [id number] - [facility] Phosphorus Lvl 2.6mg/dL Normal [id number] 2.4 - 5.1 [facility] Sodium Lvl 136mmol/L Normal 498323553513 136 - 145 [facility] Potassium Lvl 4.3mmol/L Normal [id number] 3.4 - 4.5 [facility] Chloride 106mmol/L Normal [id number] 98 - 107 [facility] CO2 26mmol/L Normal [id number] 20 - 31 [facility] AGAP 4mmol/L Below low normal 270379431483 5 - 15 [facility] Glucose Lvl Random 86mg/dL Normal [id number] 65 - 140 [facility] BUN 24mg/dL Above high normal 992505104091 9 - 23 [facility] Creatinine 0.82mg/dL Normal [id number] 0.6 - 1.1 [facility] Calcium Lvl 8.9mg/dL Normal [id number] 8.7 - 10.4 [facility] Alk Phos 113unit/L Normal [id number] 46 - 116 [facility] AST 34unit/L Above high normal [id number] 0 - 33 [facility] ALT 24unit/L Normal [id number] 10 - 49 [facility] Total Protein 6gm/dL Normal [id number] 5.7 - 8.2 [facility] Albumin Lvl 3gm/dL Below low normal 746457724533 3.2 - 4. 8 [facility] Globulin 3gm/dL Normal [id number] 1.3 - 4.7 [facility] A/G Ratio 1 Normal [id number] 1 - 3.8 [facility] Bili Total 0.6mg/dL Normal [id number] 0.2 - 1.1 [facility] Bili Direct 0.3mg/dL Normal [id number] 0 - 0.3 [facility] Magnesium Lvl 1.7mg/dL Normal [id number] 1.6 - 2.6 [facility] PT 14.8sec Normal [id number] 12.2 - 14.8 [facility] INR 1.1 Normal [id number] 0.8 - 1.2 [facility] Fibrinogen 497mg/dL Normal [id number] 174 - 514 [facility] PTT 31.6sec Normal [id number] 22.2 - 35 [facility] GLUCOMETER 126mg/dL Normal [id number] 65 - 140 [facility] GLUCOMETER 123mg/dL Normal [id number] 65 - 140 [facility] GLUCOMETER 231mg/dL Above high normal 535742500911 65 - 140 [facility] GLUCOMETER 95mg/dL Normal [id number] 65 - 140 [facility] Tacrolimus Lvl 4.4ng/mL Below low normal [id number] 5 - 1 9 [facility] GFR [facility] [place] 99mL/min/1.73m2 Normal 831584422796 - [facility] Bili Direct 0.4mg/dL Above high normal 322645595760 0 - 0.3 [facility] Phosphorus Lvl 2.1mg/dL Below low normal [id number] 2.4 - 5.1 [facility] Magnesium Lvl 1.3mg/dL Below low normal 372528417590 1.6 - 2.6 [facility] Sodium Lvl 136mmol/L Normal [id number] 136 - 145 [facility] Potassium Lvl 4mmol/L Normal [id number] 3.4 - 4.5 [facility] Chloride 106mmol/L Normal [id number] 98 - 107 [facility] CO2 25mmol/L Normal [id number] 20 - 31 [facility] AGAP 5mmol/L Normal [id number] 5 - 15 [facility] Glucose Lvl Random 127mg/dL Normal [id number] 65 - 140 [facility] BUN 28mg/dL Above high normal 375607211781 9 - 23 [facility] Creatinine 0.82mg/dL Normal [id number] 0.6 - 1.1 [facility] Calcium Lvl 9.1mg/dL Normal 596844179347 8.7 - 10.4 [facility] Alk Phos 133unit/L Above high normal 528798642388 46 - 116 [facility] AST 37unit/L Above high normal [id number] 0 - 33 [facility] ALT 27unit/L Normal 714577292408 10 - 49 [facility] Total Protein 6.2gm/dL Normal [id number] 5.7 - 8.2 [facility] Albumin Lvl 3.1gm/dL Below low normal 444255286559 3.2 - 4. 8 [facility] Globulin 3.1gm/dL Normal [id number] 1.3 - 4.7 [facility] A/G Ratio 1 Normal [id number] 1 - 3.8 [facility] Bili Total 0.6mg/dL Normal 510180290217 0.2 - 1.1 [facility] Fibrinogen 502mg/dL Normal [id number] 174 - 514 [facility] PT 14.9sec Above high normal [id number] 12.2 - 14.8 [facility] INR 1.1 Normal [id number] 0.8 - 1.2 [facility] PTT 33.6sec Normal [id number] 22.2 - 35 [facility] WBC 2.38k/uL Below low normal [id number] 4 - 10.8 [facility] RBC 2.61million/uL Below low normal [id number] 4.2 - 5.5 [facility] Hgb 7.5gm/dL Below low normal 628668260330 12.5 - 16.5 [facility] Hct 22.9% Below low normal [id number] 37.5 - 49.5 [facility] MCV 87.7FL Normal [id number] 81 - 100 [facility] MCH 28.7pg Normal [id number] 27 - 31 [facility] MCHC 32.8gm/dL Normal [id number] 31 - 36 [facility] RDW 17.8% Above high normal [id number] 11.5 - 15.5 [facility] Platelet 64k/uL Below low normal [id number] 145 - 400 [facility] MPV 11.4FL Above high normal 454788955307 7.5 - 10.4 [facility] NRBC auto 0/100wbcs Normal [id number] 0 - 2 [facility] NRBC Abs 0k/uL Normal 560244248534 0 - 0.1 [facility] Neutro % 47.1% Normal [id number] 43 - 75 [facility] Neutro Absolute 1.1k/uL Below low normal [id number] 1.7 - 8.1 [facility] Imm Gran % 5% Above high normal 260470252412 0.1 - 0. 3 [facility] Imm Gran Absolute 0.12k/uL Above high normal [id number] 3 0.01 - 0.03 [facility] Lymph % 18.1% Normal [id number] 15 - 45 [facility] Lymph Absolute 0.4k/uL Below low normal 040521041291 0.6 - 4.9 [facility] [place] % 11.8% Normal [id number] 3 - 12 [facility] Monocyte Abs 0.3k/uL Normal [id number] 0.1 - 1.3 [facility] Eos % 17.6% Above high normal [id number] 0 - 6 [facility] Eosinophil Abs 0.4k/uL Normal 120691801734 0 - 0.7 [facility] Basophil % 0.4% Normal [id number] 0 - 2 [facility] Basophil Abs 0k/uL Normal 0 - 0.2 [facility] Lactic Acid Lvl 1.5mmol/L Normal [id number] 0.5 - 2.2 [facility] GLUCOMETER 113mg/dL Normal [id number] 65 - 140 [facility] Testing Site Normal [id number] [facility] ABORh Int O POS Normal [id number] [facility] AbSc 2C Int Normal [facility] GLUCOMETER 136mg/dL Normal 65 - 140 [facility] GLUCOMETER 130mg/dL Normal [id number] 65 - 140 [facility] GLUCOMETER 120mg/dL Normal [id number] 65 - 140 [facility] Tacrolimus Lvl 4.9ng/mL Below low normal 742834296624 5 - 1 9 [facility] GFR [facility] [place] 89mL/min/1.73m2 Normal [id number] - [facility] Magnesium Lvl 1.8mg/dL Normal [id number] 1.6 - 2.6 [facility] Phosphorus Lvl 1.6mg/dL Below low normal 722111799507 2.4 - 5.1 [facility] Sodium Lvl 133mmol/L Below low normal [id number] 136 - 145 [facility] Potassium Lvl 3.7mmol/L Normal 491782792353 3.4 - 4.5 [facility] Chloride 103mmol/L Normal [id number] 98 - 107 [facility] CO2 24mmol/L Normal [id number] 20 - 31 [facility] AGAP 6mmol/L Normal [id number] 5 - 15 [facility] Glucose Lvl Random 135mg/dL Normal [id number] 65 - 140 [facility] BUN 37mg/dL Above high normal [id number] 9 - 23 [facility] Creatinine 0.96mg/dL Normal 435139024605 0.6 - 1.1 [facility] Calcium Lvl 9.4mg/dL Normal 604699870136 8.7 - 10.4 [facility] Alk Phos 129unit/L Above high normal [id number] 46 - 116 [facility] AST 35unit/L Above high normal [id number] 0 - 33 [facility] ALT 18unit/L Normal [id number] 10 - 49 [facility] Total Protein 6.3gm/dL Normal [id number] 5.7 - 8.2 [facility] Albumin Lvl 3gm/dL Below low normal [id number] 3.2 - 4. 8 [facility] Globulin 3.3gm/dL Normal [id number] 1.3 - 4.7 [facility] A/G Ratio 0.9 Below low normal [id number] 1 - 3.8 [facility] Bili Total 0.7mg/dL Normal 0.2 - 1.1 [facility] Bili Direct 0.4mg/dL Above high normal 089429530178 0 - 0.3 [facility] Fibrinogen 591mg/dL Above high normal 541910264684 174 - 51 4 [facility] Magnesium Lvl 1.8mg/dL Normal [id number] 1.6 - 2.6 [facility] Phosphorus Lvl 1.6mg/dL Below low normal [id number] 2.4 - 5.1 [facility] PT 15.6sec Above high normal 401857182599 12.2 - 14.8 [facility] INR 1.2 Normal [id number] 0.8 - 1.2 [facility] PTT 33sec Normal 22.2 - 35 [facility] PTT 33.1sec Normal 22.2 - 35 [facility] PT 15.7sec Above high normal [id number] 12.2 - 14.8 [facility] INR 1.2 Normal 0.8 - 1.2 [facility] WBC 2.53k/uL Below low normal 467890857119 4 - 10.8 [facility] RBC 2.82million/uL Below low normal 750480387663 4.2 - 5.5 [facility] Hgb 7.9gm/dL Below low normal [id number] 12.5 - 16.5 [facility] Hct 24.2% Below low normal [id number] 37.5 - 49.5 [facility] MCV 85.8FL Normal 082717911653 81 - 100 [facility] MCH 28pg Normal [id number] 27 - 31 [facility] MCHC 32.6gm/dL Normal [id number] 31 - 36 [facility] RDW 17.9% Above high normal [id number] 11.5 - 15.5 [facility] Platelet 70k/uL Below low normal 792727389530 145 - 400 [facility] MPV 12.8FL Above high normal 814950589592 7.5 - 10.4 [facility] NRBC auto 0/100wbcs Normal [id number] 0 - 2 [facility] NRBC Abs 0k/uL Normal [id number] 0 - 0.1 [facility] Neutro % 46.6% Normal [id number] 43 - 75 [facility] Neutro Absolute 1.2k/uL Below low normal [id number] 1.7 - 8.1 [facility] Imm Gran % 4.3% Above high normal 804258514054 0.1 - 0. 3 [facility] Imm Gran Absolute 0.11k/uL Above high normal 41810406697 8 0.01 - 0.03 [facility] Lymph % 19% Normal [id number] 15 - 45 [facility] Lymph Absolute 0.5k/uL Below low normal 248503305668 0.6 - 4.9 [facility] [place] % 10.7% Normal [id number] 3 - 12 [facility] Monocyte Abs 0.3k/uL Normal [id number] 0.1 - 1.3 [facility] Eos % 18.2% Above high normal 188488225831 0 - 6 [facility] Eosinophil Abs 0.5k/uL Normal [id number] 0 - 0.7 [facility] Basophil % 1.2% Normal [id number] 0 - 2 [facility] Basophil Abs 0k/uL Normal 560257189353 0 - 0.2 [facility] WBC 2.61k/uL Below low normal 350719673042 4 - 10.8 [facility] RBC 2.83million/uL Below low normal [id number] 4.2 - 5.5 [facility] Hgb 8.1gm/dL Below low normal 227619576002 12.5 - 16.5 [facility] Hct 24.2% Below low normal 627394101485 37.5 - 49.5 [facility] MCV 85.5FL Normal 257033528794 81 - 100 [facility] MCH 28.6pg Normal [id number] 27 - 31 [facility] MCHC 33.5gm/dL Normal [id number] 31 - 36 [facility] RDW 17.9% Above high normal [id number] 11.5 - 15.5 [facility] Platelet 69k/uL Below low normal 734579801134 145 - 400 [facility] MPV 11.4FL Above high normal 992319632728 7.5 - 10.4 [facility] NRBC auto 0/100wbcs Normal [id number] 0 - 2 [facility] NRBC Abs 0k/uL Normal [id number] 0 - 0.1 [facility] Neutro % 49.4% Normal [id number] 43 - 75 [facility] Neutro Absolute 1.3k/uL Below low normal 221822448744 1.7 - 8.1 [facility] Imm Gran % 3.8% Above high normal 275629414080 0.1 - 0. 3 [facility] Imm Gran Absolute 0.1k/uL Above high normal 20865595007 7 0.01 - 0.03 [facility] Lymph % 19.2% Normal [id number] 15 - 45 [facility] Lymph Absolute 0.5k/uL Below low normal [id number] 0.6 - 4.9 [facility] [place] % 9.6% Normal [id number] 3 - 12 [facility] Monocyte Abs 0.2k/uL Normal 751497892206 0.1 - 1.3 [facility] Eos % 16.9% Above high normal [id number] 0 - 6 [facility] Eosinophil Abs 0.4k/uL Normal 533924960857 0 - 0.7 [facility] Basophil % 1.1% Normal [id number] 0 - 2 [facility] Basophil Abs 0k/uL Normal 150161423167 0 - 0.2 [facility] GLUCOMETER 127mg/dL Normal [id number] 65 - 140 [facility] GLUCOMETER 132mg/dL Normal [id number] 65 - 140 [facility] Folate Lvl 7.6ng/mL Normal 920030915106 5.4 - 48 [facility] GLUCOMETER 196mg/dL Above high normal 550359472277 65 - 140 [facility] Vitamin B12 Lvl 625pg/mL Normal 527393152759 211 - 911 [facility] GFR [facility] [place] 55mL/min/1.73m2 Below low normal 327397807262 - [facility] Ferritin Lvl 3053.8ng/mL Above high normal 223010649973 10 .5 - 307.3 [facility] Sodium Lvl 133mmol/L Below low normal 400924788196 136 - 145 [facility] Potassium Lvl 3.8mmol/L Normal 755803282417 3.4 - 4.5 [facility] Chloride 103mmol/L Normal [id number] 98 - 107 [facility] CO2 23mmol/L Normal 826060235570 20 - 31 [facility] AGAP 7mmol/L Normal 453584461277 5 - 15 [facility] Glucose Lvl Random 103mg/dL Normal 395520893845 65 - 140 [facility] BUN 39mg/dL Above high normal 679554611664 9 - 23 [facility] Creatinine 1.44mg/dL Above high normal 894129641310 0.6 - 1. 1 [facility] Calcium Lvl 9.7mg/dL Normal 028516845778 8.7 - 10.4 [facility] Alk Phos 125unit/L Above high normal 483778515316 46 - 116 [facility] AST 36unit/L Above high normal 668444620648 0 - 33 [facility] ALT 12unit/L Normal [id number] 10 - 49 [facility] Total Protein 6.1gm/dL Normal 941706486959 5.7 - 8.2 [facility] Albumin Lvl 2.9gm/dL Below low normal 540283999587 3.2 - 4. 8 [facility] Globulin 3.2gm/dL Normal [id number] 1.3 - 4.7 [facility] A/G Ratio 0.9 Below low normal 823934280604 1 - 3.8 [facility] Bili Total 0.6mg/dL Normal [id number] 0.2 - 1.1 [facility] Tacrolimus Lvl 5.3ng/mL Normal 421183266567 5 - 19 [facility] Iron Lvl 91mcg/dL Normal 345172169072 65 - 175 [facility] TIBC 228mcg/dL Below low normal 969454359108 250 - 425 [facility] Iron Sat 40% Normal [id number] 20 - 55 [facility] Bili Direct 0.4mg/dL Above high normal 246769510937 0 - 0.3 [facility] Phosphorus Lvl 2.1mg/dL Below low normal 448470894323 2.4 - 5.1 [facility] Magnesium Lvl 1.5mg/dL Below low normal 048650619728 1.6 - 2.6 [facility] Magnesium Lvl 1.5mg/dL Below low normal 435872793726 1.6 - 2.6 [facility] Phosphorus Lvl 2.1mg/dL Below low normal 995084773184 2.4 - 5.1 [facility] Fibrinogen 506mg/dL Normal 024734525137 174 - 514 [facility] PT 15sec Above high normal 034730043411 12.2 - 14.8 [facility] INR 1.2 Normal 443556778930 0.8 - 1.2 [facility] PTT 28sec Normal [id number] 22.2 - 35 [facility] PT 15.4sec Above high normal 495256809166 12.2 - 14.8 [facility] INR 1.2 Normal [id number] 0.8 - 1.2 [facility] PTT 27.1sec Normal 527062820811 22.2 - 35 [facility] Retic Cnt Auto 4.4% Above high normal [id number] 0.5 - 2 [facility] Retic Absolute 0.118million/uL Above high normal [id number] 048 0.02 - 0.1 [facility] Reticulated Hgb 31.4pg Normal [id number] 30.3 - 38.5 [facility] Imm Retic % 15.2% Normal [id number] 2.2 - 15.7 [facility] WBC 2.97k/uL Below low normal 708803090046 4 - 10.8 [facility] RBC 2.67million/uL Below low normal 173628414920 4.2 - 5.5 [facility] Hgb 7.6gm/dL Below low normal 190989489758 12.5 - 16.5 [facility] Hct 23.2% Below low normal 252444706587 37.5 - 49.5 [facility] MCV 86.9FL Normal 980979542259 81 - 100 [facility] MCH 28.5pg Normal [id number] 27 - 31 [facility] MCHC 32.8gm/dL Normal 053725598929 31 - 36 [facility] RDW 18.3% Above high normal 665974596868 11.5 - 15.5 [facility] Platelet 66k/uL Below low normal 268901544373 145 - 400 [facility] MPV 12.1FL Above high normal 911361971947 7.5 - 10.4 [facility] NRBC auto 0/100wbcs Normal 403491207360 0 - 2 [facility] NRBC Abs 0k/uL Normal 749029514374 0 - 0.1 [facility] Neutro % 43.7% Normal [id number] 43 - 75 [facility] Neutro Absolute 1.3k/uL Below low normal 003916548347 1.7 - 8.1 [facility] Imm Gran % 3.7% Above high normal 914684842601 0.1 - 0. 3 [facility] Imm Gran Absolute 0.11k/uL Above high normal 04945059617 8 0.01 - 0.03 [facility] Lymph % 21.9% Normal 330935446412 15 - 45 [facility] Lymph Absolute 0.6k/uL Normal [id number] 0.6 - 4.9 [facility] [place] % 15.2% Above high normal 231760924318 3 - 12 [facility] Monocyte Abs 0.4k/uL Normal 128761839155 0.1 - 1.3 [facility] Eos % 14.5% Above high normal [id number] 0 - 6 [facility] Eosinophil Abs 0.4k/uL Normal 952721430090 0 - 0.7 [facility] Basophil % 1% Normal 942936225586 0 - 2 [facility] Basophil Abs 0k/uL Normal 954770993678 0 - 0.2 [facility] GLUCOMETER 148mg/dL Above high normal 670631271054 65 - 140 [facility] GLUCOMETER 141mg/dL Above high normal 039224978195 65 - 140 [facility] GLUCOMETER 190mg/dL Above high normal 510981591614 65 - 140 [facility] Lactic Acid Lvl 1.8mmol/L Normal [id number] 0.5 - 2.2 [facility] GLUCOMETER 146mg/dL Above high normal 356440418447 65 - 140 [facility] Tacrolimus Lvl 5.2ng/mL Normal 247462759352 5 - 19 [facility] Fibrinogen 455mg/dL Normal 768854600545 174 - 514 [facility] PTT 31.4sec Normal 950295968106 22.2 - 35 [facility] PT 15.1sec Above high normal 985886015203 12.2 - 14.8 [facility] INR 1.2 Normal 713788213990 0.8 - 1.2 [facility] GFR [facility] [place] 40mL/min/1.73m2 Below low normal 027557843481 - [facility] Magnesium Lvl 1.8mg/dL Normal 222791235380 1.6 - 2.6 [facility] Phosphorus Lvl 3.5mg/dL Normal 797617308359 2.4 - 5.1 [facility] Bili Direct 0.4mg/dL Above high normal 338776007499 0 - 0.3 [facility] Sodium Lvl 130mmol/L Below low normal 870962678694 136 - 145 [facility] Potassium Lvl 3.6mmol/L Normal 938523499208 3.4 - 4.5 [facility] Chloride 103mmol/L Normal 088555743413 98 - 107 [facility] CO2 21mmol/L Normal 297098405805 20 - 31 [facility] AGAP 6mmol/L Normal [id number] 5 - 15 [facility] Glucose Lvl Random 82mg/dL Normal 389943232577 65 - 140 [facility] BUN 55mg/dL Above high normal 610248509522 9 - 23 [facility] Creatinine 1.86mg/dL Above high normal 871102478584 0.6 - 1. 1 [facility] Calcium Lvl 9.7mg/dL Normal 806425065067 8.7 - 10.4 [facility] Alk Phos 114unit/L Normal 879390619155 46 - 116 [facility] AST 32unit/L Normal [id number] 0 - 33 [facility] ALT 12unit/L Normal [id number] 10 - 49 [facility] Total Protein 6.4gm/dL Normal 668761353184 5.7 - 8.2 [facility] Albumin Lvl 3.1gm/dL Below low normal 475608188920 3.2 - 4. 8 [facility] Globulin 3.3gm/dL Normal 794554513345 1.3 - 4.7 [facility] A/G Ratio 0.9 Below low normal 404430798758 1 - 3.8 [facility] Bili Total 0.6mg/dL Normal 565733473080 0.2 - 1.1 [facility] WBC 2.78k/uL Below low normal 652951422930 4 - 10.8 [facility] RBC 2.49million/uL Below low normal 571108139286 4.2 - 5.5 [facility] Hgb 6.8gm/dL Below low normal 124481580519 12.5 - 16.5 [facility] Hct 21.6% Below low normal 891218053938 37.5 - 49.5 [facility] MCV 86.7FL Normal [id number] 81 - 100 [facility] MCH 27.3pg Normal 793855494185 27 - 31 [facility] MCHC 31.5gm/dL Normal 135430981516 31 - 36 [facility] RDW 18.3% Above high normal 042226736127 11.5 - 15.5 [facility] Platelet 66k/uL Below low normal 128392085548 145 - 400 [facility] MPV 12FL Above high normal 498263383459 7.5 - 10.4 [facility] NRBC auto 0/100wbcs Normal 529148631841 0 - 2 [facility] NRBC Abs 0k/uL Normal 690408188858 0 - 0.1 [facility] Neutro % 40.3% Below low normal 801376232945 43 - 75 [facility] Neutro Absolute 1.1k/uL Below low normal [id number] 1.7 - 8.1 [facility] Imm Gran % 5.4% Above high normal [id number] 0.1 - 0. 3 [facility] Imm Gran Absolute 0.15k/uL Above high normal 55954087193 8 0.01 - 0.03 [facility] Lymph % 21.9% Normal [id number] 15 - 45 [facility] Lymph Absolute 0.6k/uL Normal [id number] 0.6 - 4.9 [facility] [place] % 14% Above high normal [id number] 3 - 12 [facility] Monocyte Abs 0.4k/uL Normal [id number] 0.1 - 1.3 [facility] Eos % 17.3% Above high normal 577785088084 0 - 6 [facility] Eosinophil Abs 0.5k/uL Normal [id number] 0 - 0.7 [facility] Basophil % 1.1% Normal [id number] 0 - 2 [facility] Basophil Abs 0k/uL Normal 153329841838 0 - 0.2 [facility] GLUCOMETER 106mg/dL Normal [id number] 65 - 140 [facility] GLUCOMETER 157mg/dL Above high normal [id number] 65 - 140 [facility] GLUCOMETER 107mg/dL Normal [id number] 65 - 140 [facility] WBC 4.21k/uL Normal [id number] 4 - 10.8 [facility] RBC 2.81million/uL Below low normal [id number] 4.2 - 5.5 [facility] Hgb 7.7gm/dL Below low normal 694679530092 12.5 - 16.5 [facility] Hct 24.1% Below low normal [id number] 37.5 - 49.5 [facility] MCV 85.8FL Normal [id number] 81 - 100 [facility] MCH 27.4pg Normal [id number] 27 - 31 [facility] MCHC 32gm/dL Normal [id number] 31 - 36 [facility] RDW 18.2% Above high normal [id number] 11.5 - 15.5 [facility] Platelet 59k/uL Below low normal [id number] 145 - 400 [facility] MPV 11.3FL Above high normal [id number] 7.5 - 10.4 [facility] NRBC auto 0/100wbcs Normal [id number] 0 - 2 [facility] NRBC Abs 0k/uL Normal [id number] 0 - 0.1 [facility] Neutro % 58.6% Normal [id number] 43 - 75 [facility] Neutro Absolute 2.5k/uL Normal [id number] 1.7 - 8.1 [facility] Imm Gran % 1.9% Above high normal 110802472613 0.1 - 0. 3 [facility] Imm Gran Absolute 0.08k/uL Above high normal 40150808956 4 0.01 - 0.03 [facility] Lymph % 13.1% Below low normal [id number] 15 - 45 [facility] Lymph Absolute 0.6k/uL Normal [id number] 0.6 - 4.9 [facility] [place] % 9% Normal [id number] 3 - 12 [facility] Monocyte Abs 0.4k/uL Normal [id number] 0.1 - 1.3 [facility] Eos % 16.2% Above high normal [id number] 0 - 6 [facility] Eosinophil Abs 0.7k/uL Normal 413185014192 0 - 0.7 [facility] Basophil % 1.2% Normal 214139171266 0 - 2 [facility] Basophil Abs 0k/uL Normal [id number] 0 - 0.2 [facility] AbSc 2C Int Normal [id number] [facility] Testing Site Normal [id number] [facility] ABORh Int O POS Normal [id number] [facility] Tacrolimus Lvl 6.3ng/mL Normal [id number] 5 - 19 [facility] GLUCOMETER 105mg/dL Normal [id number] 65 - 140 [facility] GFR Center [place] 32mL/min/1.73m2 Below low normal 166873291547 - [facility] Sodium Lvl 129mmol/L Below low normal [id number] 136 - 145 [facility] Potassium Lvl 4.1mmol/L Normal [id number] 3.4 - 4.5 [facility] Chloride 101mmol/L Normal [id number] 98 - 107 [facility] CO2 20mmol/L Normal [id number] 20 - 31 [facility] AGAP 8mmol/L Normal [id number] 5 - 15 [facility] Glucose Lvl Random 85mg/dL Normal [id number] 65 - 140 [facility] BUN 50mg/dL Above high normal 316223730523 9 - 23 [facility] Creatinine 2.25mg/dL Above high normal [id number] 0.6 - 1. 1 [facility] Calcium Lvl 10.2mg/dL Normal 725972256103 8.7 - 10.4 [facility] Alk Phos 108unit/L Normal [id number] 46 - 116 [facility] AST 36unit/L Above high normal 726281695033 0 - 33 [facility] ALT 12unit/L Normal [id number] 10 - 49 [facility] Total Protein 6.6gm/dL Normal [id number] 5.7 - 8.2 [facility] Albumin Lvl 3.2gm/dL Normal 381551269920 3.2 - 4.8 [facility] Globulin 3.4gm/dL Normal [id number] 1.3 - 4.7 [facility] A/G Ratio 0.9 Below low normal [id number] 1 - 3.8 [facility] Bili Total 0.6mg/dL Normal [id number] 0.2 - 1.1 [facility] Phosphorus Lvl 4.6mg/dL Normal 805161473543 2.4 - 5.1 [facility] Magnesium Lvl 1.9mg/dL Normal [id number] 1.6 - 2.6 [facility] Bili Direct 0.4mg/dL Above high normal 866247717331 0 - 0.3 [facility] Fibrinogen 537mg/dL Above high normal [id number] 174 - 51 4 [facility] PT 16.3sec Above high normal 040227789754 12.2 - 14.8 [facility] INR 1.3 Above high normal 403064633669 0.8 - 1.2 [facility] PTT 30.7sec Normal 842963009440 22.2 - 35 [facility] WBC 3.45k/uL Below low normal 386538860166 4 - 10.8 [facility] RBC 2.46million/uL Below low normal 053612596725 4.2 - 5.5 [facility] Hgb 6.9gm/dL Below low normal [id number] 12.5 - 16.5 [facility] Hct 21.3% Below low normal 066598752941 37.5 - 49.5 [facility] MCV 86.6FL Normal [id number] 81 - 100 [facility] MCH 28pg Normal [id number] 27 - 31 [facility] MCHC 32.4gm/dL Normal [id number] 31 - 36 [facility] RDW 18% Above high normal [id number] 11.5 - 15.5 [facility] Platelet 52k/uL Below low normal [id number] 145 - 400 [facility] MPV 10.9FL Above high normal 744384732345 7.5 - 10.4 [facility] NRBC auto 0/100wbcs Normal [id number] 0 - 2 [facility] NRBC Abs 0k/uL Normal [id number] 0 - 0.1 [facility] Neutro % 46.9% Normal [id number] 43 - 75 [facility] Neutro Absolute 1.6k/uL Below low normal [id number] 1.7 - 8.1 [facility] Imm Gran % 3.2% Above high normal 759612586760 0.1 - 0. 3 [facility] Imm Gran Absolute 0.11k/uL Above high normal 04838830406 9 0.01 - 0.03 [facility] Lymph % 19.1% Normal [id number] 15 - 45 [facility] Lymph Absolute 0.7k/uL Normal [id number] 0.6 - 4.9 [facility] [place] % 13.9% Above high normal [id number] 3 - 12 [facility] Monocyte Abs 0.5k/uL Normal [id number] 0.1 - 1.3 [facility] Eos % 15.7% Above high normal [id number] 0 - 6 [facility] Eosinophil Abs 0.5k/uL Normal [id number] 0 - 0.7 [facility] Basophil % 1.2% Normal [id number] 0 - 2 [facility] Basophil Abs 0k/uL Normal 719204186082 0 - 0.2 [facility] GLUCOMETER 122mg/dL Normal 762591169950 65 - 140 [facility] GLUCOMETER 120mg/dL Normal [id number] 65 - 140 [facility] GLUCOMETER 153mg/dL Above high normal [id number] 65 - 140 [facility] GLUCOMETER 101mg/dL Normal 883822089540 65 - 140 [facility] Tacrolimus Lvl 5.2ng/mL Normal 007550280553 5 - 19 [facility] Fibrinogen 555mg/dL Above high normal 204062308571 174 - 51 4 [facility] GFR [facility] [place] 31mL/min/1.73m2 Below low normal 511345746412 - [facility] Sodium Lvl 129mmol/L Below low normal 631392278241 136 - 145 [facility] Potassium Lvl 4.2mmol/L Normal 832604683017 3.4 - 4.5 [facility] Chloride 100mmol/L Normal [id number] 98 - 107 [facility] CO2 19mmol/L Below low normal [id number] 20 - 31 [facility] AGAP 10mmol/L Normal [id number] 5 - 15 [facility] Glucose Lvl Random 101mg/dL Normal 422676297615 65 - 140 [facility] BUN 56mg/dL Above high normal 686015951794 9 - 23 [facility] Creatinine 2.33mg/dL Above high normal 918283427393 0.6 - 1. 1 [facility] Calcium Lvl 10.7mg/dL Above high normal 376174949351 8.7 - 10.4 [facility] Alk Phos 108unit/L Normal 657101459989 46 - 116 [facility] AST 38unit/L Above high normal [id number] 0 - 33 [facility] ALT 12unit/L Normal [id number] 10 - 49 [facility] Total Protein 7.1gm/dL Normal [id number] 5.7 - 8.2 [facility] Albumin Lvl 3.5gm/dL Normal [id number] 3.2 - 4.8 [facility] Globulin 3.6gm/dL Normal 160988556491 1.3 - 4.7 [facility] A/G Ratio 1 Normal [id number] 1 - 3.8 [facility] Bili Total 0.8mg/dL Normal 521616642726 0.2 - 1.1 [facility] Bili Direct 0.5mg/dL Above high normal 020749681590 0 - 0.3 [facility] Magnesium Lvl 2.1mg/dL Normal [id number] 1.6 - 2.6 [facility] Phosphorus Lvl 5mg/dL Normal [id number] 2.4 - 5.1 [facility] PTT 34.1sec Normal 647996327910 22.2 - 35 [facility] PT 16.9sec Above high normal 754078882517 12.2 - 14.8 [facility] INR 1.4 Above high normal 623401382661 0.8 - 1.2 [facility] WBC 5.5k/uL Normal [id number] 4 - 10.8 [facility] RBC 2.81million/uL Below low normal 415011929315 4.2 - 5.5 [facility] Hgb 7.9gm/dL Below low normal 566158359699 12.5 - 16.5 [facility] Hct 24.3% Below low normal 712609911950 37.5 - 49.5 [facility] MCV 86.5FL Normal [id number] 81 - 100 [facility] MCH 28.1pg Normal [id number] 27 - 31 [facility] MCHC 32.5gm/dL Normal 345257109589 31 - 36 [facility] RDW 18.3% Above high normal 433871742604 11.5 - 15.5 [facility] Platelet 62k/uL Below low normal 922194955954 145 - 400 [facility] MPV 10.8FL Above high normal 110742758811 7.5 - 10.4 [facility] NRBC auto 0/100wbcs Normal 277110043351 0 - 2 [facility] NRBC Abs 0k/uL Normal [id number] 0 - 0.1 [facility] Neutro % 53.6% Normal [id number] 43 - 75 [facility] Neutro Absolute 3k/uL Normal [id number] 1.7 - 8.1 [facility] Imm Gran % 3.3% Above high normal [id number] 0.1 - 0. 3 [facility] Imm Gran Absolute 0.18k/uL Above high normal 47436326007 4 0.01 - 0.03 [facility] Lymph % 13.8% Below low normal 623670740703 15 - 45 [facility] Lymph Absolute 0.8k/uL Normal [id number] 0.6 - 4.9 [facility] [place] % 16.2% Above high normal 290886377417 3 - 12 [facility] Monocyte Abs 0.9k/uL Normal 942021354843 0.1 - 1.3 [facility] Eos % 12.4% Above high normal [id number] 0 - 6 [facility] Eosinophil Abs 0.7k/uL Normal 171946491428 0 - 0.7 [facility] Basophil % 0.7% Normal [id number] 0 - 2 [facility] Basophil Abs 0k/uL Normal [id number] 0 - 0.2 [facility] GLUCOMETER 119mg/dL Normal [id number] 65 - 140 [facility] GLUCOMETER 104mg/dL Normal [id number] 65 - 140 [facility] GLUCOMETER 98mg/dL Normal [id number] 65 - 140 [facility] GLUCOMETER 96mg/dL Normal [id number] 65 - 140 [facility] GLUCOMETER 109mg/dL Normal [id number] 65 - 140 [facility] GLUCOMETER 113mg/dL Normal [id number] 65 - 140 [facility] GFR [facility] [place] 32mL/min/1.73m2 Below low normal 441896007096 - [facility] Sodium Lvl 129mmol/L Below low normal [id number] 136 - 145 [facility] Potassium Lvl 4.5mmol/L Normal [id number] 3.4 - 4.5 [facility] Chloride 101mmol/L Normal [id number] 98 - 107 [facility] CO2 20mmol/L Normal [id number] 20 - 31 [facility] AGAP 8mmol/L Normal [id number] 5 - 15 [facility] Glucose Lvl Random 91mg/dL Normal [id number] 65 - 140 [facility] BUN 52mg/dL Above high normal 651881768157 9 - 23 [facility] Creatinine 2.28mg/dL Above high normal 333171496869 0.6 - 1. 1 [facility] Calcium Lvl 10.9mg/dL Above high normal 523338206547 8.7 - 10.4 [facility] Alk Phos 108unit/L Normal [id number] 46 - 116 [facility] AST 41unit/L Above high normal 510957310466 0 - 33 [facility] ALT 16unit/L Normal [id number] 10 - 49 [facility] Total Protein 7.2gm/dL Normal 138231532522 5.7 - 8.2 [facility] Albumin Lvl 3.5gm/dL Normal 567321120114 3.2 - 4.8 [facility] Globulin 3.7gm/dL Normal [id number] 1.3 - 4.7 [facility] A/G Ratio 0.9 Below low normal [id number] 1 - 3.8 [facility] Bili Total 0.9mg/dL Normal 333909159722 0.2 - 1.1 [facility] Tacrolimus Lvl 6.2ng/mL Normal [id number] 5 - 19 [facility] Bili Direct 0.5mg/dL Above high normal [id number] 0 - 0.3 [facility] Phosphorus Lvl 5.3mg/dL Above high normal 619653964584 2.4 - 5.1 [facility] Magnesium Lvl 2.1mg/dL Normal [id number] 1.6 - 2.6 [facility] PTT 34.4sec Normal [id number] 22.2 - 35 [facility] Fibrinogen 556mg/dL Above high normal 774345106590 174 - 51 4 [facility] PT 16.4sec Above high normal [id number] 12.2 - 14.8 [facility] INR 1.3 Above high normal [id number] 0.8 - 1.2 [facility] WBC 5.89k/uL Normal 863903756748 4 - 10.8 [facility] RBC 2.78million/uL Below low normal 591375780281 4.2 - 5.5 [facility] Hgb 7.9gm/dL Below low normal 409785902386 12.5 - 16.5 [facility] Hct 24.3% Below low normal [id number] 37.5 - 49.5 [facility] MCV 87.4FL Normal 365775760957 81 - 100 [facility] MCH 28.4pg Normal [id number] 27 - 31 [facility] MCHC 32.5gm/dL Normal [id number] 31 - 36 [facility] RDW 18.1% Above high normal 439540932801 11.5 - 15.5 [facility] Platelet 84k/uL Below low normal 520523764072 145 - 400 [facility] MPV 11.9FL Above high normal 043956083894 7.5 - 10.4 [facility] NRBC auto 0/100wbcs Normal 693061280559 0 - 2 [facility] NRBC Abs 0k/uL Normal [id number] 0 - 0.1 [facility] Neutro % 54.8% Normal [id number] 43 - 75 [facility] Neutro Absolute 3.2k/uL Normal [id number] 1.7 - 8.1 [facility] Imm Gran % 3.4% Above high normal 424541758086 0.1 - 0. 3 [facility] Imm Gran Absolute 0.2k/uL Above high normal 76572148323 8 0.01 - 0.03 [facility] Lymph % 14.6% Below low normal [id number] 15 - 45 [facility] Lymph Absolute 0.9k/uL Normal [id number] 0.6 - 4.9 [facility] [place] % 14.9% Above high normal [id number] 3 - 12 [facility] Monocyte Abs 0.9k/uL Normal [id number] 0.1 - 1.3 [facility] Eos % 11.5% Above high normal [id number] 0 - 6 [facility] Eosinophil Abs 0.7k/uL Normal 251329402252 0 - 0.7 [facility] Basophil % 0.8% Normal [id number] 0 - 2 [facility] Basophil Abs 0k/uL Normal [id number] 0 - 0.2 [facility] CMV DNA Quant PCR <137 Normal [id number] - [facility] GLUCOMETER 118mg/dL Normal [id number] 65 - 140 [facility] GLUCOMETER 118mg/dL Normal [id number] 65 - 140 [facility] GLUCOMETER 118mg/dL Normal [id number] 65 - 140 [facility] GLUCOMETER 171mg/dL Above high normal [id number] 65 - 140 [facility] Tacrolimus Lvl 5.8ng/mL Normal [id number] 5 - 19 [facility] G[facility] [place] 33mL/min/1.73m2 Below low normal [id number] - [facility] Sodium Lvl 131mmol/L Below low normal 444176262720 136 - 145 [facility] Potassium Lvl 4.9mmol/L Above high normal 572303064408 3.4 - 4.5 [facility] Chloride 101mmol/L Normal [id number] 98 - 107 [facility] CO2 20mmol/L Normal [id number] 20 - 31 [facility] AGAP 10mmol/L Normal [id number] 5 - 15 [facility] Glucose Lvl Random 93mg/dL Normal [id number] 65 - 140 [facility] BUN 47mg/dL Above high normal [id number] 9 - 23 [facility] Creatinine 2.2mg/dL Above high normal 664784123925 0.6 - 1. 1 [facility] Calcium Lvl 10.8mg/dL Above high normal 786545571335 8.7 - 10.4 [facility] Alk Phos 111unit/L Normal [id number] 46 - 116 [facility] AST 46unit/L Above high normal [id number] 0 - 33 [facility] ALT 18unit/L Normal [id number] 10 - 49 [facility] Total Protein 7.4gm/dL Normal [id number] 5.7 - 8.2 [facility] Albumin Lvl 3.6gm/dL Normal [id number] 3.2 - 4.8 [facility] Globulin 3.8gm/dL Normal 587758497940 1.3 - 4.7 [facility] A/G Ratio 0.9 Below low normal [id number] 1 - 3.8 [facility] Bili Total 0.9mg/dL Normal 581500247893 0.2 - 1.1 [facility] Phosphorus Lvl 5.4mg/dL Above high normal 892726704600 2.4 - 5.1 [facility] Bili Direct 0.5mg/dL Above high normal 699195641097 0 - 0.3 [facility] Magnesium Lvl 2.4mg/dL Normal [id number] 1.6 - 2.6 [facility] PTT 31.2sec Normal [id number] 22.2 - 35 [facility] PT 15.7sec Above high normal [id number] 12.2 - 14.8 [facility] INR 1.2 Normal [id number] 0.8 - 1.2 [facility] Fibrinogen 563mg/dL Above high normal 355673590058 174 - 51 4 [facility] WBC 5.41k/uL Normal 569511374320 4 - 10.8 [facility] RBC 2.99million/uL Below low normal [id number] 4.2 - 5.5 [facility] Hgb 8.3gm/dL Below low normal 870214355691 12.5 - 16.5 [facility] Hct 26.4% Below low normal [id number] 37.5 - 49.5 [facility] MCV 88.3FL Normal [id number] 81 - 100 [facility] MCH 27.8pg Normal [id number] 27 - 31 [facility] MCHC 31.4gm/dL Normal [id number] 31 - 36 [facility] RDW 18.6% Above high normal [id number] 11.5 - 15.5 [facility] Platelet 92k/uL Below low normal 616565676802 145 - 400 [facility] MPV 12.1FL Above high normal [id number] 7.5 - 10.4 [facility] NRBC auto 0/100wbcs Normal 029275503766 0 - 2 [facility] NRBC Abs 0k/uL Normal 982898353563 0 - 0.1 [facility] Neutro % 53.5% Normal [id number] 43 - 75 [facility] Neutro Absolute 2.9k/uL Normal [id number] 1.7 - 8.1 [facility] Imm Gran % 4.1% Above high normal 227214165865 0.1 - 0. 3 [facility] Imm Gran Absolute 0.22k/uL Above high normal 60674726283 4 0.01 - 0.03 [facility] Lymph % 16.5% Normal [id number] 15 - 45 [facility] Lymph Absolute 0.9k/uL Normal [id number] 0.6 - 4.9 [facility] [place] % 13.5% Above high normal 331868975613 3 - 12 [facility] Monocyte Abs 0.7k/uL Normal [id number] 0.1 - 1.3 [facility] Eos % 11.3% Above high normal 401467938411 0 - 6 [facility] Eosinophil Abs 0.6k/uL Normal 907940541301 0 - 0.7 [facility] Basophil % 1.1% Normal [id number] 0 - 2 [facility] Basophil Abs 0.1k/uL Normal [id number] 0 - 0.2 [facility] Lactic Acid Lvl 1.6mmol/L Normal 0.5 - 2.2 [facility] CMV DNA Quant PCR Normal - [facility] GLUCOMETER 112mg/dL Normal 65 - 140 [facility] Lactic Acid Lvl 2.8mmol/L Above high normal 0.5 - 2.2 [facility] GLUCOMETER 125mg/dL Normal 65 - 140 [facility] GLUCOMETER 114mg/dL Normal 65 - 140 [facility] AbSc 2C Int Normal [facility] Testing Site Normal [facility] ABORh Int O POS Normal [facility] GLUCOMETER 120mg/dL Normal 65 - 140 [facility] Tacrolimus Lvl 15.9ng/mL Normal 5 - 19 [facility] GFR [facility] [place] 39mL/min/1.73m2 Below low normal - [facility] Sodium Lvl 131mmol/L Below low normal 136 - 145 [facility] Potassium Lvl 4.8mmol/L Above high normal 3.4 - 4.5 [facility] Chloride 101mmol/L Normal 98 - 107 [facility] CO2 20mmol/L Normal 20 - 31 [facility] AGAP 10mmol/L Normal 5 - 15 [facility] Glucose Lvl Random 85mg/dL Normal 65 - 140 [facility] BUN 34mg/dL Above high normal 9 - 23 [facility] Creatinine 1.92mg/dL Above high normal 0.6 - 1. 1 [facility] Calcium Lvl 10.4mg/dL Normal 8.7 - 10.4 [facility] Alk Phos 97unit/L Normal [id number] 46 - 116 [facility] AST 41unit/L Above high normal 0 - 33 [facility] ALT 21unit/L Normal 10 - 49 [facility] Total Protein 6.9gm/dL Normal 5.7 - 8.2 [facility] Albumin Lvl 3.4gm/dL Normal 3.2 - 4.8 [facility] Globulin 3.5gm/dL Normal 1.3 - 4.7 [facility] A/G Ratio 1 Normal 1 - 3.8 [facility] Bili Total 1mg/dL Normal 0.2 - 1.1 [facility] Magnesium Lvl 2.3mg/dL Normal 1.6 - 2.6 [facility] Bili Direct 0.6mg/dL Above high normal 0 - 0.3 [facility] Phosphorus Lvl 4.7mg/dL Normal 2.4 - 5.1 [facility] PTT 33.1sec Normal 22.2 - 35 [facility] PT 15.5sec Above high normal 12.2 - 14.8 [facility] INR 1.2 Normal 0.8 - 1.2 [facility] Fibrinogen 538mg/dL Above high normal 174 - 51 4 [facility] WBC 4.83k/uL Normal 4 - 10.8 [facility] RBC 2.69million/uL Below low normal 4.2 - 5.5 [facility] Hgb 7.5gm/dL Below low normal 12.5 - 16.5 [facility] Hct 23.6% Below low normal 37.5 - 49.5 [facility] MCV 87.7FL Normal 81 - 100 [facility] MCH 27.9pg Normal 27 - 31 [facility] MCHC 31.8gm/dL Normal 31 - 36 [facility] RDW 18.5% Above high normal 11.5 - 15.5 [facility] Platelet 76k/uL Below low normal 145 - 400 [facility] MPV 12.2FL Above high normal 7.5 - 10.4 [facility] NRBC auto 0/100wbcs Normal 0 - 2 [facility] NRBC Abs 0k/uL Normal 0 - 0.1 [facility] Neutro % 54.7% Normal 43 - 75 [facility] Neutro Absolute 2.6k/uL Normal 1.7 - 8.1 [facility] Imm Gran % 2.9% Above high normal 0.1 - 0. 3 [facility] Imm Gran Absolute 0.14k/uL Above high normal [id number] 0 0.01 - 0.03 [facility] Lymph % 19.3% Normal 15 - 45 [facility] Lymph Absolute 0.9k/uL Normal [id number] 0.6 - 4.9 [facility] [place] % 12.8% Above high normal 531742700762 3 - 12 [facility] Monocyte Abs 0.6k/uL Normal 0.1 - 1.3 [facility] Eos % 9.1% Above high normal [id number] 0 - 6 [facility] Eosinophil Abs 0.4k/uL Normal 568922523676 0 - 0.7 [facility] Basophil % 1.2% Normal 0 - 2 [facility] Basophil Abs 0.1k/uL Normal 0 - 0.2 [facility] GLUCOMETER 114mg/dL Normal [id number] 65 - 140 [facility] GLUCOMETER 126mg/dL Normal 65 - 140 [facility] GLUCOMETER 142mg/dL Above high normal [id number] 65 - 140 [facility] PTT 30.8sec Normal [id number] 22.2 - 35 [facility] Fibrinogen 598mg/dL Above high normal [id number] 174 - 51 4 [facility] PT 15.9sec Above high normal 419036307701 12.2 - 14.8 [facility] INR 1.2 Normal [id number] 0.8 - 1.2 [facility] GLUCOMETER 113mg/dL Normal [id number] 65 - 140 [facility] Magnesium Lvl 2.8mg/dL Above high normal 181244183718 1.6 - 2.6 [facility] Phosphorus Lvl 4.3mg/dL Normal [id number] 2.4 - 5.1 [facility] WBC 4.37k/uL Normal [id number] 4 - 10.8 [facility] RBC 2.83million/uL Below low normal [id number] 4.2 - 5.5 [facility] Hgb 7.9gm/dL Below low normal 076438466605 12.5 - 16.5 [facility] Hct 25.4% Below low normal 753980249704 37.5 - 49.5 [facility] MCV 89.8FL Normal [id number] 81 - 100 [facility] MCH 27.9pg Normal [id number] 27 - 31 [facility] MCHC 31.1gm/dL Normal [id number] 31 - 36 [facility] RDW 18.5% Above high normal [id number] 11.5 - 15.5 [facility] Platelet 82k/uL Below low normal 219009553202 145 - 400 [facility] MPV 11.3FL Above high normal 255785424251 7.5 - 10.4 [facility] NRBC auto 0/100wbcs Normal 533366742456 0 - 2 [facility] NRBC Abs 0k/uL Normal [id number] 0 - 0.1 [facility] Neutro % 52.8% Normal [id number] 43 - 75 [facility] Neutro Absolute 2.3k/uL Normal [id number] 1.7 - 8.1 [facility] Imm Gran % 3.7% Above high normal 728590881793 0.1 - 0. 3 [facility] Imm Gran Absolute 0.16k/uL Above high normal 56736875164 3 0.01 - 0.03 [facility] Lymph % 19.2% Normal [id number] 15 - 45 [facility] Lymph Absolute 0.8k/uL Normal [id number] 0.6 - 4.9 [facility] [place] % 14% Above high normal 443700980051 3 - 12 [facility] Monocyte Abs 0.6k/uL Normal [id number] 0.1 - 1.3 [facility] Eos % 8.9% Above high normal 573089145454 0 - 6 [facility] Eosinophil Abs 0.4k/uL Normal 139555470920 0 - 0.7 [facility] Basophil % 1.4% Normal [id number] 0 - 2 [facility] Basophil Abs 0.1k/uL Normal [id number] 0 - 0.2 [facility] GFR [facility] [place] 48mL/min/1.73m2 Below low normal 460874092798 - [facility] Sodium Lvl 132mmol/L Below low normal 953838886740 136 - 145 [facility] Potassium Lvl 5mmol/L Above high normal 467619615171 3.4 - 4.5 [facility] Chloride 102mmol/L Normal 733994002646 98 - 107 [facility] CO2 20mmol/L Normal [id number] 20 - 31 [facility] AGAP 10mmol/L Normal [id number] 5 - 15 [facility] Glucose Lvl Random 107mg/dL Normal 891608108090 65 - 140 [facility] BUN 32mg/dL Above high normal 467633073446 9 - 23 [facility] Creatinine 1.62mg/dL Above high normal [id number] 0.6 - 1. 1 [facility] Calcium Lvl 10.6mg/dL Above high normal 708018564022 8.7 - 10.4 [facility] Alk Phos 95unit/L Normal [id number] 46 - 116 [facility] AST 45unit/L Above high normal 555560879361 0 - 33 [facility] ALT 32unit/L Normal 823276450173 10 - 49 [facility] Total Protein 7.3gm/dL Normal [id number] 5.7 - 8.2 [facility] Albumin Lvl 3.4gm/dL Normal 255174051827 3.2 - 4.8 [facility] Globulin 3.9gm/dL Normal 530998915497 1.3 - 4.7 [facility] A/G Ratio 0.9 Below low normal 522857362166 1 - 3.8 [facility] Bili Total 1mg/dL Normal [id number] 0.2 - 1.1 [facility] Tacrolimus Lvl 10.4ng/mL Normal 760024359438 5 - 19 [facility] Magnesium Lvl 2.7mg/dL Above high normal 361659790765 1.6 - 2.6 [facility] Bili Direct 0.5mg/dL Above high normal 919778906093 0 - 0.3 [facility] Phosphorus Lvl 4.2mg/dL Normal 965760254799 2.4 - 5.1 [facility] WBC 4.42k/uL Normal 832240587831 4 - 10.8 [facility] RBC 2.78million/uL Below low normal 050180949361 4.2 - 5.5 [facility] Hgb 7.7gm/dL Below low normal 911767973205 12.5 - 16.5 [facility] Hct 25% Below low normal 346824799742 37.5 - 49.5 [facility] MCV 89.9FL Normal [id number] 81 - 100 [facility] MCH 27.7pg Normal [id number] 27 - 31 [facility] MCHC 30.8gm/dL Below low normal [id number] 31 - 36 [facility] RDW 18.3% Above high normal [id number] 11.5 - 15.5 [facility] Platelet 76k/uL Below low normal 861027480344 145 - 400 [facility] MPV 11.3FL Above high normal [id number] 7.5 - 10.4 [facility] NRBC auto 0/100wbcs Normal [id number] 0 - 2 [facility] NRBC Abs 0k/uL Normal [id number] 0 - 0.1 [facility] Neutro % 52.4% Normal [id number] 43 - 75 [facility] Neutro Absolute 2.3k/uL Normal [id number] 1.7 - 8.1 [facility] Imm Gran % 4.3% Above high normal [id number] 0.1 - 0. 3 [facility] Imm Gran Absolute 0.19k/uL Above high normal 19315888277 1 0.01 - 0.03 [facility] Lymph % 19.9% Normal [id number] 15 - 45 [facility] Lymph Absolute 0.9k/uL Normal [id number] 0.6 - 4.9 [facility] [place] % 12% Normal [id number] 3 - 12 [facility] Monocyte Abs 0.5k/uL Normal [id number] 0.1 - 1.3 [facility] Eos % 10% Above high normal [id number] 0 - 6 [facility] Eosinophil Abs 0.4k/uL Normal [id number] 0 - 0.7 [facility] Basophil % 1.4% Normal [id number] 0 - 2 [facility] Basophil Abs 0.1k/uL Normal [id number] 0 - 0.2 [facility] GLUCOMETER 126mg/dL Normal [id number] 65 - 140 [facility] GLUCOMETER 106mg/dL Normal [id number] 65 - 140 [facility] GLUCOMETER 145mg/dL Above high normal [id number] 65 - 140 [facility] GLUCOMETER 139mg/dL Normal [id number] 65 - 140 [facility] Tacrolimus Lvl 10.6ng/mL Normal [id number] 5 - 19 [facility] GFR [facility] [place] 46mL/min/1.73m2 Below low normal [id number] - [facility] Sodium Lvl 133mmol/L Below low normal [id number] 136 - 145 [facility] Potassium Lvl 4.9mmol/L Above high normal [id number] 3.4 - 4.5 [facility] Chloride 105mmol/L Normal [id number] 98 - 107 [facility] CO2 22mmol/L Normal [id number] 20 - 31 [facility] AGAP 6mmol/L Normal [id number] 5 - 15 [facility] Glucose Lvl Random 93mg/dL Normal [id number] 65 - 140 [facility] BUN 33mg/dL Above high normal [id number] 9 - 23 [facility] Creatinine 1.66mg/dL Above high normal [id number] 0.6 - 1. 1 [facility] Calcium Lvl 9.9mg/dL Normal [id number] 8.7 - 10.4 [facility] Alk Phos 93unit/L Normal [id number] 46 - 116 [facility] AST 41unit/L Above high normal [id number] 0 - 33 [facility] ALT 33unit/L Normal [id number] 10 - 49 [facility] Total Protein 6.9gm/dL Normal [id number] 5.7 - 8.2 [facility] Albumin Lvl 3.3gm/dL Normal [id number] 3.2 - 4.8 [facility] Globulin 3.6gm/dL Normal [id number] 1.3 - 4.7 [facility] A/G Ratio 0.9 Below low normal [id number] 1 - 3.8 [facility] Bili Total 0.9mg/dL Normal [id number] 0.2 - 1.1 [facility] Magnesium Lvl 1.5mg/dL Below low normal [id number] 1.6 - 2.6 [facility] Phosphorus Lvl 4mg/dL Normal [id number] 2.4 - 5.1 [facility] Bili Direct 0.6mg/dL Above high normal [id number] 0 - 0.3 [facility] Fibrinogen 500mg/dL Normal [id number] 174 - 514 [facility] PTT 30.9sec Normal [id number] 22.2 - 35 [facility] PT 15.9sec Above high normal 465100661862 12.2 - 14.8 [facility] INR 1.2 Normal [id number] 0.8 - 1.2 [facility] WBC 4.62k/uL Normal [id number] 4 - 10.8 [facility] RBC 2.53million/uL Below low normal [id number] 4.2 - 5.5 [facility] Hgb 7gm/dL Below low normal [id number] 12.5 - 16.5 [facility] Hct 22.2% Below low normal [id number] 37.5 - 49.5 [facility] MCV 87.7FL Normal [id number] 81 - 100 [facility] MCH 27.7pg Normal [id number] 27 - 31 [facility] MCHC 31.5gm/dL Normal [id number] 31 - 36 [facility] RDW 18.3% Above high normal [id number] 11.5 - 15.5 [facility] Platelet 87k/uL Below low normal [id number] 145 - 400 [facility] MPV 11.7FL Above high normal 216689047436 7.5 - 10.4 [facility] NRBC auto 0/100wbcs Normal [id number] 0 - 2 [facility] NRBC Abs 0k/uL Normal 852673714813 0 - 0.1 [facility] Neutro % 48.1% Normal [id number] 43 - 75 [facility] Neutro Absolute 2.2k/uL Normal [id number] 1.7 - 8.1 [facility] Imm Gran % 4.5% Above high normal 545153066095 0.1 - 0. 3 [facility] Imm Gran Absolute 0.21k/uL Above high normal 72801884493 0 0.01 - 0.03 [facility] Lymph % 24.2% Normal [id number] 15 - 45 [facility] Lymph Absolute 1.1k/uL Normal [id number] 0.6 - 4.9 [facility] [place] % 14.5% Above high normal [id number] 3 - 12 [facility] Monocyte Abs 0.7k/uL Normal [id number] 0.1 - 1.3 [facility] Eos % 7.6% Above high normal 985467328570 0 - 6 [facility] Eosinophil Abs 0.4k/uL Normal [id number] 0 - 0.7 [facility] Basophil % 1.1% Normal [id number] 0 - 2 [facility] Basophil Abs 0k/uL Normal 784063065159 0 - 0.2 [facility] GLUCOMETER 121mg/dL Normal [id number] 65 - 140 [facility] GLUCOMETER 147mg/dL Above high normal 156642484155 65 - 140 [facility] GLUCOMETER 128mg/dL Normal [id number] 65 - 140 [facility] Lactic Acid Lvl 1mmol/L Normal [id number] 0.5 - 2.2 [facility] GLUCOMETER 116mg/dL Normal [id number] 65 - 140 [facility] Testing Site Normal [id number] [facility] ABORh Int O POS Normal [id number] [facility] AbSc 2C Int Normal [id number] [facility] GFR Center [place] 88mL/min/1.73m2 Normal 414012223976 - [facility] Creatine Kinase 21unit/L Below low normal [id number] 46 - 171 [facility] Sodium Lvl 133mmol/L Below low normal 864604288738 136 - 145 [facility] Potassium Lvl 5.2mmol/L Above high normal 263791653242 3.4 - 4.5 [facility] Chloride 103mmol/L Normal 830910610588 98 - 107 [facility] CO2 22mmol/L Normal [id number] 20 - 31 [facility] AGAP 8mmol/L Normal [id number] 5 - 15 [facility] Glucose Lvl Random 90mg/dL Normal [id number] 65 - 140 [facility] BUN 22mg/dL Normal [id number] 9 - 23 [facility] Creatinine 0.97mg/dL Normal [id number] 0.6 - 1.1 [facility] Calcium Lvl 9.7mg/dL Normal 327599970069 8.7 - 10.4 [facility] Alk Phos 88unit/L Normal [id number] 46 - 116 [facility] AST 45unit/L Above high normal 759502910370 0 - 33 [facility] ALT 33unit/L Normal [id number] 10 - 49 [facility] Total Protein 6.9gm/dL Normal [id number] 5.7 - 8.2 [facility] Albumin Lvl 3.3gm/dL Normal [id number] 3.2 - 4.8 [facility] Globulin 3.6gm/dL Normal [id number] 1.3 - 4.7 [facility] A/G Ratio 0.9 Below low normal 571991574218 1 - 3.8 [facility] Bili Total 1.2mg/dL Above high normal 051390808533 0.2 - 1. 1 [facility] GFR Univ with Cystatin C 48mL/min/1.73m2 Below low normal [id number] - [facility] Cystatin C Lvl 2.27mg/L Above high normal 001871285671 0 .64 - 1.23 [facility] Phosphorus Lvl 3.9mg/dL Normal 816524509081 2.4 - 5.1 [facility] Magnesium Lvl 1.4mg/dL Below low normal 115554249535 1.6 - 2.6 [facility] Bili Direct 0.6mg/dL Above high normal 194573795713 0 - 0.3 [facility] Tacrolimus Lvl 11ng/mL Normal 363518147088 5 - 19 [facility] PT 16sec Above high normal [id number] 12.2 - 14.8 [facility] INR 1.2 Normal [id number] 0.8 - 1.2 [facility] Fibrinogen 528mg/dL Above high normal 510104856828 174 - 51 4 [facility] PTT 29.1sec Normal [id number] 22.2 - 35 [facility] WBC 3.99k/uL Below low normal 611421083436 4 - 10.8 [facility] RBC 2.71million/uL Below low normal 464596586909 4.2 - 5.5 [facility] Hgb 7.6gm/dL Below low normal 325381048129 12.5 - 16.5 [facility] Hct 23.3% Below low normal [id number] 37.5 - 49.5 [facility] MCV 86FL Normal [id number] 81 - 100 [facility] MCH 28pg Normal [id number] 27 - 31 [facility] MCHC 32.6gm/dL Normal [id number] 31 - 36 [facility] RDW 17.8% Above high normal [id number] 11.5 - 15.5 [facility] Platelet 79k/uL Below low normal 444050407184 145 - 400 [facility] MPV 12.1FL Above high normal 550809524764 7.5 - 10.4 [facility] NRBC auto 0/100wbcs Normal [id number] 0 - 2 [facility] NRBC Abs 0k/uL Normal [id number] 0 - 0.1 [facility] Neutro % 54.6% Normal [id number] 43 - 75 [facility] Neutro Absolute 2.2k/uL Normal 855529640497 1.7 - 8.1 [facility] Imm Gran % 4.5% Above high normal [id number] 0.1 - 0. 3 [facility] Imm Gran Absolute 0.18k/uL Above high normal 15169540971 0 0.01 - 0.03 [facility] Lymph % 19.8% Normal [id number] 15 - 45 [facility] Lymph Absolute 0.8k/uL Normal [id number] 0.6 - 4.9 [facility] [place] % 12.5% Above high normal [id number] 3 - 12 [facility] Monocyte Abs 0.5k/uL Normal [id number] 0.1 - 1.3 [facility] Eos % 7.3% Above high normal 156730115210 0 - 6 [facility] Eosinophil Abs 0.3k/uL Normal 296368867014 0 - 0.7 [facility] Basophil % 1.3% Normal [id number] 0 - 2 [facility] Basophil Abs 0k/uL Normal 809477441879 0 - 0.2 [facility] GLUCOMETER 142mg/dL Above high normal 467562622934 65 - 140 [facility] GLUCOMETER 105mg/dL Normal [id number] 65 - 140 [facility] Creatinine TNP Normal 394385092383 0.66 - 1.5 [facility] BUN TNP Normal [id number] 9 - 20 [facility] Creatinine TNP Normal 664499105358 0.66 - 1.5 [facility] BUN TNP Normal [id number] 9 - 20 [facility] Creatinine TNP Normal [id number] 0.66 - 1.5 [facility] BUN TNP Normal [id number] 9 - 20 [facility] Creatinine TNP Normal 418806262657 0.66 - 1.5 [facility] Glucose Lvl Random TNP Normal [id number] 65 - 140 [facility] BUN TNP Normal [id number] 9 - 20 [facility] Creatinine TNP Normal 286227710021 0.66 - 1.5 [facility] Glucose Lvl Random TNP Normal [id number] 65 - 140 [facility] BUN TNP Normal [id number] 9 - 20 [facility] Creatinine TNP Normal [id number] 0.66 - 1.5 [facility] Glucose Lvl Random TNP Normal [id number] 65 - 140 [facility] BUN TNP Normal [id number] 9 - 20 [facility] Creatinine TNP Normal [id number] 0.66 - 1.5 [facility] Glucose Lvl Random TNP Normal [id number] 65 - 140 [facility] BUN TNP Normal [id number] 9 - 20 [facility] Creatinine TNP Normal [id number] 0.66 - 1.5 [facility] Glucose Lvl Random TNP Normal [id number] 65 - 140 [facility] BUN TNP Normal [id number] 9 - 20 [facility] Creatinine TNP Normal [id number] 0.66 - 1.5 [facility] Glucose Lvl Random TNP Normal [id number] 65 - 140 [facility] BUN TNP Normal [id number] 9 - 20 [facility] TCO2 Art TNP Normal [id number] 22 - 30 [facility] TCO2 Art TNP Normal [id number] 22 - 30 [facility] Creatinine tnp Normal [id number] 0.66 - 1.5 [facility] BUN tnp Normal [id number] 9 - 20 [facility] GLUCOMETER 98mg/dL Normal [id number] 65 - 140 [facility] Segs Man 67% Normal [id number] 43 - 75 [facility] Band Man 1% Normal [id number] 0 - 10 [facility] Lymph Man 16% Normal [id number] 15 - 45 [facility] Monocyte Man 3% Normal 239577086525 3 - 12 [facility] Eos Man 4% Normal 580568432163 0 - 6 [facility] Basophil Man 0% Normal [id number] 0 - 2 [facility] [place] Man 3% Above high normal 043417763238 0 - 1 [facility] Myelo Man 6% Above high normal [id number] 0 - 1 [facility] Promyelo Man 2% Above high normal 337154596225 0 - 0 [facility] Neut Abs Count 3.6k/uL Normal [id number] 1.7 - 8.1 [facility] Anisocyte Abnormal 092217726397 [facility] Polychrom Abnormal 320180239239 [facility] RBC Morph Normal 473642222189 - [facility] Platelet Est Abnormal 051813705766 - [facility] Tear Cell Abnormal 580046363437 [facility] Toxic Gran Abnormal 306801706729 [facility] Stomatocytes Abnormal 214833629797 [facility] Ovalocytes Abnormal 881403189112 [facility] Poik Abnormal 502819214423 [facility] Hypochrom Abnormal 042016514378 [facility] Acanthocyte Abnormal 674737351229 [facility] Microcyte Abnormal 209333252728 [facility] [place] Cells Abnormal 119931966022 [facility] GFR Center [place] 99mL/min/1.73m2 Normal 706514898021 - [facility] Sodium Lvl 134mmol/L Below low normal 874810829204 136 - 145 [facility] Potassium Lvl 5mmol/L Above high normal 751806162428 3.4 - 4.5 [facility] Chloride 104mmol/L Normal [id number] 98 - 107 [facility] CO2 23mmol/L Normal [id number] 20 - 31 [facility] AGAP 7mmol/L Normal [id number] 5 - 15 [facility] Glucose Lvl Random 89mg/dL Normal 739725616037 65 - 140 [facility] BUN 21mg/dL Normal [id number] 9 - 23 [facility] Creatinine 0.83mg/dL Normal 735617486710 0.6 - 1.1 [facility] Calcium Lvl 9.6mg/dL Normal 937313140306 8.7 - 10.4 [facility] Alk Phos 93unit/L Normal [id number] 46 - 116 [facility] AST 40unit/L Above high normal [id number] 0 - 33 [facility] ALT 42unit/L Normal [id number] 10 - 49 [facility] Total Protein 6.9gm/dL Normal 005262659132 5.7 - 8.2 [facility] Albumin Lvl 3.3gm/dL Normal 391292032716 3.2 - 4.8 [facility] Globulin 3.6gm/dL Normal 529845301607 1.3 - 4.7 [facility] A/G Ratio 0.9 Below low normal [id number] 1 - 3.8 [facility] Bili Total 1.4mg/dL Above high normal 216238493092 0.2 - 1. 1 [facility] GLUCOMETER 105mg/dL Normal 709752452075 65 - 140 [facility] Tacrolimus Lvl 7.2ng/mL Normal [id number] 5 - 19 [facility] Bili Direct 0.7mg/dL Above high normal 863304545847 0 - 0.3 [facility] Phosphorus Lvl 3.5mg/dL Normal 617862046549 2.4 - 5.1 [facility] Magnesium Lvl 1.3mg/dL Below low normal 032128639710 1.6 - 2.6 [facility] WBC 5.24k/uL Normal 116117403870 4 - 10.8 [facility] RBC 2.91million/uL Below low normal 295727597553 4.2 - 5.5 [facility] Hgb 8.1gm/dL Below low normal 541532998010 12.5 - 16.5 [facility] Hct 25.2% Below low normal [id number] 37.5 - 49.5 [facility] MCV 86.6FL Normal 149321691184 81 - 100 [facility] MCH 27.8pg Normal [id number] 27 - 31 [facility] MCHC 32.1gm/dL Normal 679711692805 31 - 36 [facility] RDW 17.8% Above high normal 073879596793 11.5 - 15.5 [facility] Platelet 88k/uL Below low normal 725647707125 145 - 400 [facility] MPV 11.4FL Above high normal 387222478675 7.5 - 10.4 [facility] NRBC auto 0/100wbcs Normal 792938110261 0 - 2 [facility] NRBC Abs 0k/uL Normal 476354452088 0 - 0.1 [facility] Neutro % 53% Normal [id number] 43 - 75 [facility] Neutro Absolute 2.8k/uL Normal [id number] 1.7 - 8.1 [facility] Imm Gran % 5.2% Above high normal 759606081695 0.1 - 0. 3 [facility] Imm Gran Absolute 0.27k/uL Above high normal 30747610018 4 0.01 - 0.03 [facility] Lymph % 21.4% Normal [id number] 15 - 45 [facility] Lymph Absolute 1.1k/uL Normal [id number] 0.6 - 4.9 [facility] [place] % 12.8% Above high normal 467299952396 3 - 12 [facility] Monocyte Abs 0.7k/uL Normal 515893333059 0.1 - 1.3 [facility] Eos % 6.3% Above high normal [id number] 0 - 6 [facility] Eosinophil Abs 0.3k/uL Normal 154809867276 0 - 0.7 [facility] Basophil % 1.3% Normal 141741796215 0 - 2 [facility] Basophil Abs 0.1k/uL Normal 722099047767 0 - 0.2 [facility] PT 15.8sec Above high normal 760530811169 12.2 - 14.8 [facility] INR 1.2 Normal [id number] 0.8 - 1.2 [facility] Fibrinogen 573mg/dL Above high normal 316750828514 174 - 51 4 [facility] PTT 30.7sec Normal [id number] 22.2 - 35 [facility] GLUCOMETER 106mg/dL Normal [id number] 65 - 140 [facility] GLUCOMETER 132mg/dL Normal [id number] 65 - 140 [facility] GLUCOMETER 119mg/dL Normal [id number] 65 - 140 [facility] Potassium Lvl 4.7mmol/L Above high normal 210806404790 3.4 - 4.5 [facility] GLUCOMETER 237mg/dL Above high normal 440734830563 65 - 140 [facility] Tacrolimus Lvl 9ng/mL Normal 874025096306 5 - 19 [facility] Segs Man 72% Normal [id number] 43 - 75 [facility] Lymph Man 13% Below low normal [id number] 15 - 45 [facility] Monocyte Man 3% Normal [id number] 3 - 12 [facility] Eos Man 6% Normal [id number] 0 - 6 [facility] Basophil Man 3% Above high normal 048091826336 0 - 2 [facility] Myelo Man 2% Above high normal 899445719667 0 - 1 [facility] Blasts Man 2% Above high normal 952187401829 0 - 0 [facility] NRBC Man 1/100wbcs Normal [id number] 0 - 2 [facility] Neut Abs Count 3.1k/uL Normal 475387972385 1.7 - 8.1 [facility] Anisocyte Abnormal 322096290592 [facility] Platelet Morph Abnormal 607247909436 [facility] Polychrom Abnormal 054507633049 [facility] RBC Morph Normal 772425834201 - [facility] Platelet Est Abnormal 918590694852 - [facility] Ovalocytes Abnormal 488038022024 [facility] Poik Abnormal 493484973619 [facility] Tear Cell Abnormal 483776784434 [facility] Microcyte Abnormal 394659080945 [facility] [place] Cells Abnormal 182296378515 [facility] GFR Center [place] 99mL/min/1.73m2 Normal [id number] - [facility] Sodium Lvl 131mmol/L Below low normal 679982100899 136 - 145 [facility] Potassium Lvl 5.3mmol/L Above high normal 968744702001 3.4 - 4.5 [facility] Chloride 103mmol/L Normal 223790119312 98 - 107 [facility] CO2 21mmol/L Normal [id number] 20 - 31 [facility] AGAP 7mmol/L Normal 792363851581 5 - 15 [facility] Glucose Lvl Random 90mg/dL Normal [id number] 65 - 140 [facility] BUN 23mg/dL Normal [id number] 9 - 23 [facility] Creatinine 0.82mg/dL Normal 751869710785 0.6 - 1.1 [facility] Calcium Lvl 9.5mg/dL Normal 978815581537 8.7 - 10.4 [facility] Alk Phos 92unit/L Normal [id number] 46 - 116 [facility] AST 44unit/L Above high normal 536904056962 0 - 33 [facility] ALT 44unit/L Normal [id number] 10 - 49 [facility] Total Protein 7gm/dL Normal [id number] 5.7 - 8.2 [facility] Albumin Lvl 3.4gm/dL Normal 491651615867 3.2 - 4.8 [facility] Globulin 3.6gm/dL Normal 873684828791 1.3 - 4.7 [facility] A/G Ratio 0.9 Below low normal 793584304040 1 - 3.8 [facility] Bili Total 1.1mg/dL Normal 582310315656 0.2 - 1.1 [facility] Bili Direct 0.7mg/dL Above high normal 765993404876 0 - 0.3 [facility] Phosphorus Lvl 3.4mg/dL Normal 670629012217 2.4 - 5.1 [facility] Magnesium Lvl 1.4mg/dL Below low normal 174950429530 1.6 - 2.6 [facility] WBC 4.31k/uL Normal 520184568911 4 - 10.8 [facility] RBC 2.73million/uL Below low normal 005231341669 4.2 - 5.5 [facility] Hgb 7.3gm/dL Below low normal 548650385426 12.5 - 16.5 [facility] Hct 23.9% Below low normal 291399644529 37.5 - 49.5 [facility] MCV 87.5FL Normal 165561454777 81 - 100 [facility] MCH 26.7pg Below low normal 061470881469 27 - 31 [facility] MCHC 30.5gm/dL Below low normal 279094301028 31 - 36 [facility] RDW 17.2% Above high normal 527935810527 11.5 - 15.5 [facility] Platelet 77k/uL Below low normal 320426885659 145 - 400 [facility] MPV 12.8FL Above high normal 004833366765 7.5 - 10.4 [facility] NRBC auto 0/100wbcs Normal [id number] 0 - 2 [facility] NRBC Abs 0k/uL Normal 173417031372 0 - 0.1 [facility] Neutro % 56.1% Normal 995415292298 43 - 75 [facility] Neutro Absolute 2.4k/uL Normal 410436430986 1.7 - 8.1 [facility] Imm Gran % 5.6% Above high normal 222633543329 0.1 - 0. 3 [facility] Imm Gran Absolute 0.24k/uL Above high normal 59102653384 2 0.01 - 0.03 [facility] Lymph % 19% Normal [id number] 15 - 45 [facility] Lymph Absolute 0.8k/uL Normal [id number] 0.6 - 4.9 [facility] [place] % 12.1% Above high normal 452310599904 3 - 12 [facility] Monocyte Abs 0.5k/uL Normal 380687507860 0.1 - 1.3 [facility] Eos % 5.8% Normal [id number] 0 - 6 [facility] Eosinophil Abs 0.2k/uL Normal 536395163365 0 - 0.7 [facility] Basophil % 1.4% Normal 102285307315 0 - 2 [facility] Basophil Abs 0.1k/uL Normal 759357494201 0 - 0.2 [facility] PTT 30sec Normal 076247052721 22.2 - 35 [facility] PT 15.7sec Above high normal [id number] 12.2 - 14.8 [facility] INR 1.2 Normal [id number] 0.8 - 1.2 [facility] Fibrinogen 532mg/dL Above high normal 374639288442 174 - 51 4 [facility] GLUCOMETER 138mg/dL Normal [id number] 65 - 140 [facility] GLUCOMETER 121mg/dL Normal [id number] 65 - 140 [facility] GLUCOMETER 110mg/dL Normal [id number] 65 - 140 [facility] GFR Center [place] 93mL/min/1.73m2 Normal 509827158343 - [facility] Sodium Lvl 132mmol/L Below low normal 766144332660 136 - 145 [facility] Potassium Lvl 5.1mmol/L Above high normal 121296477751 3.4 - 4.5 [facility] Chloride 104mmol/L Normal 054123737613 98 - 107 [facility] CO2 21mmol/L Normal 665932939157 20 - 31 [facility] AGAP 7mmol/L Normal 409052440384 5 - 15 [facility] Glucose Lvl Random 94mg/dL Normal 462064227005 65 - 140 [facility] BUN 27mg/dL Above high normal 194553263758 9 - 23 [facility] Creatinine 0.93mg/dL Normal [id number] 0.6 - 1.1 [facility] Calcium Lvl 9.4mg/dL Normal 726019866190 8.7 - 10.4 [facility] Potassium Lvl 5.1mmol/L Above high normal 155804395773 3.4 - 4.5 [facility] GLUCOMETER 110mg/dL Normal 053788339944 65 - 140 [facility] Tacrolimus Lvl 7.4ng/mL Normal 822186896446 5 - 19 [facility] Segs Man 70% Normal [id number] 43 - 75 [facility] Lymph Man 13% Below low normal [id number] 15 - 45 [facility] Monocyte Man 5% Normal 192504125487 3 - 12 [facility] Eos Man 2% Normal 613871786465 0 - 6 [facility] Basophil Man 6% Above high normal 224260594654 0 - 2 [facility] [place] Man 1% Normal [id number] 0 - 1 [facility] Myelo Man 1% Normal 752214547974 0 - 1 [facility] Atyp Lymph Man 3% Normal [id number] 0 - 5 [facility] Neut Abs Count 3.3k/uL Normal 165407746438 1.7 - 8.1 [facility] Anisocyte Abnormal 546665676988 [facility] Platelet Morph Abnormal 965626773096 [facility] Polychrom Abnormal 774415727661 [facility] RBC Morph Normal 265456629622 - [facility] Platelet Est Abnormal 264114365896 - [facility] Ovalocytes Abnormal 389860303679 [facility] Microcyte Abnormal 925751168303 [facility] GFR Center [place] 84mL/min/1.73m2 Normal 326351777523 - [facility] Sodium Lvl 132mmol/L Below low normal 466058520739 136 - 145 [facility] Potassium Lvl 5.8mmol/L Above high normal 826824301788 3.4 - 4.5 [facility] Chloride 102mmol/L Normal 389996409478 98 - 107 [facility] CO2 21mmol/L Normal 728599548626 20 - 31 [facility] AGAP 9mmol/L Normal 805934627856 5 - 15 [facility] Glucose Lvl Random 91mg/dL Normal 432073942386 65 - 140 [facility] BUN 27mg/dL Above high normal 054076542340 9 - 23 [facility] Creatinine 1.01mg/dL Normal 006347708313 0.6 - 1.1 [facility] Calcium Lvl 9.8mg/dL Normal 600864647576 8.7 - 10.4 [facility] Alk Phos 98unit/L Normal 545846071498 46 - 116 [facility] AST 62unit/L Above high normal 811511495020 0 - 33 [facility] ALT 64unit/L Above high normal 644770369234 10 - 49 [facility] Total Protein 7.2gm/dL Normal [id number] 5.7 - 8.2 [facility] Albumin Lvl 3.4gm/dL Normal 858396065072 3.2 - 4.8 [facility] Globulin 3.8gm/dL Normal 785642537105 1.3 - 4.7 [facility] A/G Ratio 0.9 Below low normal 282363115687 1 - 3.8 [facility] Bili Total 1.4mg/dL Above high normal 177042789772 0.2 - 1. 1 [facility] Bili Direct 0.7mg/dL Above high normal 973825002687 0 - 0.3 [facility] Phosphorus Lvl 3.9mg/dL Normal 216199548460 2.4 - 5.1 [facility] Magnesium Lvl 1.5mg/dL Below low normal 637466370961 1.6 - 2.6 [facility] Lactic Acid Lvl 1.4mmol/L Normal 759064361313 0.5 - 2.2 [facility] Fibrinogen 540mg/dL Above high normal 716866435647 174 - 51 4 [facility] PTT 27.3sec Normal 402007598385 22.2 - 35 [facility] PT 15.6sec Above high normal 510729911559 12.2 - 14.8 [facility] INR 1.2 Normal 453148822805 0.8 - 1.2 [facility] WBC 4.67k/uL Normal 626242874250 4 - 10.8 [facility] RBC 2.79million/uL Below low normal 527229866787 4.2 - 5.5 [facility] Hgb 7.7gm/dL Below low normal 215234028958 12.5 - 16.5 [facility] Hct 23.8% Below low normal 293236958497 37.5 - 49.5 [facility] MCV 85.3FL Normal 320531431100 81 - 100 [facility] MCH 27.6pg Normal [id number] 27 - 31 [facility] MCHC 32.4gm/dL Normal 393779094231 31 - 36 [facility] RDW 16.7% Above high normal 369269235110 11.5 - 15.5 [facility] Platelet 71k/uL Below low normal 695877806644 145 - 400 [facility] MPV 11.3FL Above high normal 266280312162 7.5 - 10.4 [facility] NRBC auto 0/100wbcs Normal 865670910979 0 - 2 [facility] NRBC Abs 0k/uL Normal 328582866150 0 - 0.1 [facility] Neutro % 55.2% Normal 787525283577 43 - 75 [facility] Neutro Absolute 2.6k/uL Normal 993325819164 1.7 - 8.1 [facility] Imm Gran % 5.4% Above high normal 838415656322 0.1 - 0. 3 [facility] Imm Gran Absolute 0.25k/uL Above high normal 78600041838 0 0.01 - 0.03 [facility] Lymph % 20.8% Normal [id number] 15 - 45 [facility] Lymph Absolute 1k/uL Normal 171844022603 0.6 - 4.9 [facility] [place] % 12.2% Above high normal 097943637148 3 - 12 [facility] Monocyte Abs 0.6k/uL Normal [id number] 0.1 - 1.3 [facility] Eos % 5.1% Normal 084443056058 0 - 6 [facility] Eosinophil Abs 0.2k/uL Normal 953801882124 0 - 0.7 [facility] Basophil % 1.3% Normal 736046666403 0 - 2 [facility] Basophil Abs 0.1k/uL Normal 819289015076 0 - 0.2 [facility] GLUCOMETER 119mg/dL Normal 957937625901 65 - 140 [facility] CMV DNA Quant PCR 363IU/mL Above high normal [id number] - [facility] CMV DNA Quant PCR 652IU/mL Above high normal [id number] - [facility] GLUCOMETER 128mg/dL Normal [id number] 65 - 140 [facility] GLUCOMETER 115mg/dL Normal [id number] 65 - 140 [facility] GLUCOMETER 125mg/dL Normal [id number] 65 - 140 [facility] GFR Center [place] 101mL/min/1.73m2 Normal [id number] - [facility] Sodium Lvl 132mmol/L Below low normal [id number] 136 - 145 [facility] Potassium Lvl 5.4mmol/L Above high normal [id number] 3.4 - 4.5 [facility] Chloride 101mmol/L Normal [id number] 98 - 107 [facility] CO2 22mmol/L Normal [id number] 20 - 31 [facility] AGAP 9mmol/L Normal [id number] 5 - 15 [facility] Glucose Lvl Random 114mg/dL Normal [id number] 65 - 140 [facility] BUN 21mg/dL Normal [id number] 9 - 23 [facility] Creatinine 0.77mg/dL Normal [id number] 0.6 - 1.1 [facility] Calcium Lvl 9.5mg/dL Normal [id number] 8.7 - 10.4 [facility] Alk Phos 91unit/L Normal [id number] 46 - 116 [facility] AST 48unit/L Above high normal [id number] 0 - 33 [facility] ALT 45unit/L Normal [id number] 10 - 49 [facility] Total Protein 7gm/dL Normal [id number] 5.7 - 8.2 [facility] Albumin Lvl 3.4gm/dL Normal [id number] 3.2 - 4.8 [facility] Globulin 3.6gm/dL Normal [id number] 1.3 - 4.7 [facility] A/G Ratio 0.9 Below low normal [id number] 1 - 3.8 [facility] Bili Total 1.5mg/dL Above high normal [id number] 0.2 - 1. 1 [facility] Bili Direct 0.8mg/dL Above high normal [id number] 0 - 0.3 [facility] Magnesium Lvl 1.5mg/dL Below low normal [id number] 1.6 - 2.6 [facility] Phosphorus Lvl 3.5mg/dL Normal [id number] 2.4 - 5.1 [facility] Tacrolimus Lvl 5.5ng/mL Normal [id number] 5 - 19 [facility] PT 15.6sec Above high normal [id number] 12.2 - 14.8 [facility] INR 1.2 Normal [id number] 0.8 - 1.2 [facility] PTT 26sec Normal [id number] 22.2 - 35 [facility] Fibrinogen 522mg/dL Above high normal [id number] 174 - 51 4 [facility] WBC 3.74k/uL Below low normal [id number] 4 - 10.8 [facility] RBC 2.73million/uL Below low normal [id number] 4.2 - 5.5 [facility] Hgb 7.5gm/dL Below low normal 595044930267 12.5 - 16.5 [facility] Hct 23.5% Below low normal [id number] 37.5 - 49.5 [facility] MCV 86.1FL Normal [id number] 81 - 100 [facility] MCH 27.5pg Normal [id number] 27 - 31 [facility] MCHC 31.9gm/dL Normal [id number] 31 - 36 [facility] RDW 16.4% Above high normal [id number] 11.5 - 15.5 [facility] Platelet 80k/uL Below low normal [id number] 145 - 400 [facility] MPV 11.8FL Above high normal [id number] 7.5 - 10.4 [facility] NRBC auto 0/100wbcs Normal [id number] 0 - 2 [facility] NRBC Abs 0k/uL Normal [id number] 0 - 0.1 [facility] Neutro % 58.6% Normal [id number] 43 - 75 [facility] Neutro Absolute 2.2k/uL Normal [id number] 1.7 - 8.1 [facility] Imm Gran % 5.6% Above high normal [id number] 0.1 - 0. 3 [facility] Imm Gran Absolute 0.21k/uL Above high normal 12093983646 6 0.01 - 0.03 [facility] Lymph % 17.9% Normal [id number] 15 - 45 [facility] Lymph Absolute 0.7k/uL Normal [id number] 0.6 - 4.9 [facility] [place] % 11.5% Normal [id number] 3 - 12 [facility] Monocyte Abs 0.4k/uL Normal [id number] 0.1 - 1.3 [facility] Eos % 5.3% Normal [id number] 0 - 6 [facility] Eosinophil Abs 0.2k/uL Normal 761686847661 0 - 0.7 [facility] Basophil % 1.1% Normal [id number] 0 - 2 [facility] Basophil Abs 0k/uL Normal [id number] 0 - 0.2 [facility] GLUCOMETER 114mg/dL Normal [id number] 65 - 140 [facility] GLUCOMETER 128mg/dL Normal [id number] 65 - 140 [facility] GLUCOMETER 107mg/dL Normal [id number] 65 - 140 [facility] AbSc 2C Int Normal [id number] [facility] Testing Site Normal [id number] [facility] ABORh Int O POS Normal [id number] [facility] Troponin I HS 5ng/L Normal [id number] 0 - 53 [facility] Segs Man 77% Above high normal 971827984873 43 - 75 [facility] Band Man 1% Normal [id number] 0 - 10 [facility] Lymph Man 8% Below low normal [id number] 15 - 45 [facility] Monocyte Man 8% Normal [id number] 3 - 12 [facility] Eos Man 3% Normal [id number] 0 - 6 [facility] Basophil Man 2% Normal 372498141695 0 - 2 [facility] [place] Man 2% Above high normal [id number] 0 - 1 [facility] Myelo Man 1% Normal [id number] 0 - 1 [facility] Neut Abs Count 3k/uL Normal [id number] 1.7 - 8.1 [facility] Anisocyte Abnormal [id number] [facility] Polychrom Abnormal [id number] [facility] RBC Morph Normal 617799144833 - [facility] Platelet Est Abnormal 546692788433 - [facility] Ovalocytes Abnormal 867048246040 [facility] Poik Abnormal 686018600573 [facility] Microcyte Abnormal 419042163738 [facility] GLUCOMETER 121mg/dL Normal [id number] 65 - 140 [facility] Tacrolimus Lvl 5.1ng/mL Normal 138626291437 5 - 19 [facility] GFR [facility] [place] 101mL/min/1.73m2 Normal [id number] - [facility] Sodium Lvl 134mmol/L Below low normal 027520382861 136 - 145 [facility] Potassium Lvl 5.1mmol/L Above high normal 085574901830 3.4 - 4.5 [facility] Chloride 103mmol/L Normal 452966680177 98 - 107 [facility] CO2 23mmol/L Normal [id number] 20 - 31 [facility] AGAP 8mmol/L Normal [id number] 5 - 15 [facility] Glucose Lvl Random 94mg/dL Normal [id number] 65 - 140 [facility] BUN 18mg/dL Normal [id number] 9 - 23 [facility] Creatinine 0.77mg/dL Normal 542302282507 0.6 - 1.1 [facility] Calcium Lvl 9.6mg/dL Normal [id number] 8.7 - 10.4 [facility] Alk Phos 94unit/L Normal [id number] 46 - 116 [facility] AST 35unit/L Above high normal 648376383543 0 - 33 [facility] ALT 39unit/L Normal [id number] 10 - 49 [facility] Total Protein 7.2gm/dL Normal 538135111451 5.7 - 8.2 [facility] Albumin Lvl 3.5gm/dL Normal 822652733985 3.2 - 4.8 [facility] Globulin 3.7gm/dL Normal [id number] 1.3 - 4.7 [facility] A/G Ratio 0.9 Below low normal 938548184106 1 - 3.8 [facility] Bili Total 1.5mg/dL Above high normal 072745743031 0.2 - 1. 1 [facility] Bili Direct 0.9mg/dL Above high normal 938025251958 0 - 0.3 [facility] Phosphorus Lvl 3.6mg/dL Normal 667875328063 2.4 - 5.1 [facility] Magnesium Lvl 1.3mg/dL Below low normal 883794248802 1.6 - 2.6 [facility] Fibrinogen 533mg/dL Above high normal 781857894668 174 - 51 4 [facility] PTT 29sec Normal 014522348818 22.2 - 35 [facility] PT 16sec Above high normal 666738973642 12.2 - 14.8 [facility] INR 1.2 Normal [id number] 0.8 - 1.2 [facility] WBC 3.89k/uL Below low normal 333144164470 4 - 10.8 [facility] RBC 2.81million/uL Below low normal 615149220043 4.2 - 5.5 [facility] Hgb 7.7gm/dL Below low normal 670029257101 12.5 - 16.5 [facility] Hct 23.9% Below low normal 363512842592 37.5 - 49.5 [facility] MCV 85.1FL Normal 779920175656 81 - 100 [facility] MCH 27.4pg Normal [id number] 27 - 31 [facility] MCHC 32.2gm/dL Normal [id number] 31 - 36 [facility] RDW 16% Above high normal 695105038784 11.5 - 15.5 [facility] Platelet 79k/uL Below low normal 661747363175 145 - 400 [facility] MPV 12FL Above high normal [id number] 7.5 - 10.4 [facility] NRBC auto 0/100wbcs Normal [id number] 0 - 2 [facility] NRBC Abs 0k/uL Normal 638102753024 0 - 0.1 [facility] Neutro % 54% Normal [id number] 43 - 75 [facility] Neutro Absolute 2.1k/uL Normal 839980123613 1.7 - 8.1 [facility] Imm Gran % 6.7% Above high normal 877742525454 0.1 - 0. 3 [facility] Imm Gran Absolute 0.26k/uL Above high normal 43612167761 6 0.01 - 0.03 [facility] Lymph % 21.1% Normal [id number] 15 - 45 [facility] Lymph Absolute 0.8k/uL Normal [id number] 0.6 - 4.9 [facility] [place] % 12.1% Above high normal [id number] 3 - 12 [facility] Monocyte Abs 0.5k/uL Normal [id number] 0.1 - 1.3 [facility] Eos % 4.6% Normal [id number] 0 - 6 [facility] Eosinophil Abs 0.2k/uL Normal [id number] 0 - 0.7 [facility] Basophil % 1.5% Normal [id number] 0 - 2 [facility] Basophil Abs 0.1k/uL Normal [id number] 0 - 0.2 [facility] Lactic Acid Lvl 1.9mmol/L Normal 519784389494 0.5 - 2.2 [facility] GLUCOMETER 195mg/dL Above high normal 491735937337 65 - 140 [facility] GLUCOMETER 112mg/dL Normal 555898872779 65 - 140 [facility] GLUCOMETER 124mg/dL Normal [id number] 65 - 140 [facility] GLUCOMETER 108mg/dL Normal [id number] 65 - 140 [facility] Segs Man 76% Above high normal 774734460134 43 - 75 [facility] Lymph Man 9% Below low normal [id number] 15 - 45 [facility] Monocyte Man 3% Normal [id number] 3 - 12 [facility] Eos Man 5% Normal [id number] 0 - 6 [facility] Basophil Man 5% Above high normal [id number] 0 - 2 [facility] Myelo Man 2% Above high normal 716639266479 0 - 1 [facility] Promyelo Man 1% Above high normal 424806099618 0 - 0 [facility] NRBC Man 1/100wbcs Normal [id number] 0 - 2 [facility] Neut Abs Count 2.5k/uL Normal [id number] 1.7 - 8.1 [facility] Anisocyte Abnormal 062721047319 [facility] Stomatocytes Abnormal 499727482305 [facility] Polychrom Abnormal [id number] [facility] RBC Morph Normal [id number] - [facility] Platelet Est Abnormal 961069080016 - [facility] Ovalocytes Abnormal 305724819859 [facility] Poik Abnormal 857861104913 [facility] Microcyte Abnormal 074932247339 [facility] Tacrolimus Lvl 6.2ng/mL Normal 485001796313 5 - 19 [facility] GFR [facility] [place] 106mL/min/1.73m2 Normal [id number] - [facility] Bili Direct 0.8mg/dL Above high normal 066775610554 0 - 0.3 [facility] Phosphorus Lvl 3.4mg/dL Normal 370653186704 2.4 - 5.1 [facility] Magnesium Lvl 1.4mg/dL Below low normal 273852032313 1.6 - 2.6 [facility] Sodium Lvl 132mmol/L Below low normal 492208226918 136 - 145 [facility] Potassium Lvl 4.6mmol/L Above high normal 790597282683 3.4 - 4.5 [facility] Chloride 100mmol/L Normal [id number] 98 - 107 [facility] CO2 24mmol/L Normal [id number] 20 - 31 [facility] AGAP 8mmol/L Normal [id number] 5 - 15 [facility] Glucose Lvl Random 99mg/dL Normal [id number] 65 - 140 [facility] BUN 16mg/dL Normal [id number] 9 - 23 [facility] Creatinine 0.66mg/dL Normal 615204190704 0.6 - 1.1 [facility] Calcium Lvl 9.2mg/dL Normal 914713777036 8.7 - 10.4 [facility] Alk Phos 87unit/L Normal [id number] 46 - 116 [facility] AST 24unit/L Normal [id number] 0 - 33 [facility] ALT 28unit/L Normal [id number] 10 - 49 [facility] Total Protein 6.6gm/dL Normal [id number] 5.7 - 8.2 [facility] Albumin Lvl 3.2gm/dL Normal [id number] 3.2 - 4.8 [facility] Globulin 3.4gm/dL Normal [id number] 1.3 - 4.7 [facility] A/G Ratio 0.9 Below low normal 476203641903 1 - 3.8 [facility] Bili Total 1.5mg/dL Above high normal 114326922840 0.2 - 1. 1 [facility] PTT 30.1sec Normal [id number] 22.2 - 35 [facility] Fibrinogen 496mg/dL Normal [id number] 174 - 514 [facility] PT 16.2sec Above high normal 406192955089 12.2 - 14.8 [facility] INR 1.3 Above high normal 013616551731 0.8 - 1.2 [facility] WBC 3.28k/uL Below low normal 451179812584 4 - 10.8 [facility] RBC 2.67million/uL Below low normal 565366200308 4.2 - 5.5 [facility] Hgb 7.4gm/dL Below low normal 703835435793 12.5 - 16.5 [facility] Hct 22.9% Below low normal 151432819860 37.5 - 49.5 [facility] MCV 85.8FL Normal [id number] 81 - 100 [facility] MCH 27.7pg Normal [id number] 27 - 31 [facility] MCHC 32.3gm/dL Normal [id number] 31 - 36 [facility] RDW 16% Above high normal [id number] 11.5 - 15.5 [facility] Platelet 65k/uL Below low normal 063920087062 145 - 400 [facility] MPV 11.4FL Above high normal 439302874791 7.5 - 10.4 [facility] NRBC auto 0/100wbcs Normal [id number] 0 - 2 [facility] NRBC Abs 0k/uL Normal 638328991853 0 - 0.1 [facility] Neutro % 55.2% Normal [id number] 43 - 75 [facility] Neutro Absolute 1.8k/uL Normal [id number] 1.7 - 8.1 [facility] Imm Gran % 7.9% Above high normal [id number] 0.1 - 0. 3 [facility] Imm Gran Absolute 0.26k/uL Above high normal 01825305189 9 0.01 - 0.03 [facility] Lymph % 18.3% Normal [id number] 15 - 45 [facility] Lymph Absolute 0.6k/uL Normal [id number] 0.6 - 4.9 [facility] [place] % 13.1% Above high normal [id number] 3 - 12 [facility] Monocyte Abs 0.4k/uL Normal [id number] 0.1 - 1.3 [facility] Eos % 4.3% Normal [id number] 0 - 6 [facility] Eosinophil Abs 0.1k/uL Normal 044657259027 0 - 0.7 [facility] Basophil % 1.2% Normal [id number] 0 - 2 [facility] Basophil Abs 0k/uL Normal 021206470730 0 - 0.2 [facility] GLUCOMETER 132mg/dL Normal [id number] 65 - 140 [facility] GLUCOMETER 106mg/dL Normal 438850595803 65 - 140 [facility] GLUCOMETER 141mg/dL Above high normal 189572385701 65 - 140 [facility] GLUCOMETER 114mg/dL Normal [id number] 65 - 140 [facility] Tacrolimus Lvl 9.4ng/mL Normal 164810818552 5 - 19 [facility] G[facility] [place] 105mL/min/1.73m2 Normal [id number] - [facility] Magnesium Lvl 1.8mg/dL Normal [id number] 1.6 - 2.6 [facility] Phosphorus Lvl 2.9mg/dL Normal 533541586324 2.4 - 5.1 [facility] Sodium Lvl 132mmol/L Below low normal 567984156260 136 - 145 [facility] Potassium Lvl 4.8mmol/L Above high normal 548017438366 3.4 - 4.5 [facility] Chloride 102mmol/L Normal [id number] 98 - 107 [facility] CO2 25mmol/L Normal [id number] 20 - 31 [facility] AGAP 5mmol/L Normal [id number] 5 - 15 [facility] Glucose Lvl Random 103mg/dL Normal [id number] 65 - 140 [facility] BUN 14mg/dL Normal 519105051311 9 - 23 [facility] Creatinine 0.68mg/dL Normal 713051619291 0.6 - 1.1 [facility] Calcium Lvl 8.9mg/dL Normal 741702138162 8.7 - 10.4 [facility] Alk Phos 92unit/L Normal [id number] 46 - 116 [facility] AST 27unit/L Normal [id number] 0 - 33 [facility] ALT 33unit/L Normal [id number] 10 - 49 [facility] Total Protein 6.9gm/dL Normal [id number] 5.7 - 8.2 [facility] Albumin Lvl 3.3gm/dL Normal 549343193338 3.2 - 4.8 [facility] Globulin 3.6gm/dL Normal 536073875306 1.3 - 4.7 [facility] A/G Ratio 0.9 Below low normal [id number] 1 - 3.8 [facility] Bili Total 1.6mg/dL Above high normal 434006612862 0.2 - 1. 1 [facility] Bili Direct 0.9mg/dL Above high normal 812503221660 0 - 0.3 [facility] PTT 29.9sec Normal [id number] 22.2 - 35 [facility] Fibrinogen 530mg/dL Above high normal 351243154350 174 - 51 4 [facility] PT 16sec Above high normal 701318614282 12.2 - 14.8 [facility] INR 1.3 Above high normal 291344949068 0.8 - 1.2 [facility] WBC 4.5k/uL Normal 949754490373 4 - 10.8 [facility] RBC 2.61million/uL Below low normal 104363014812 4.2 - 5.5 [facility] Hgb 7.2gm/dL Below low normal [id number] 12.5 - 16.5 [facility] Hct 22.2% Below low normal 760510325633 37.5 - 49.5 [facility] MCV 85.1FL Normal 960117014822 81 - 100 [facility] MCH 27.6pg Normal [id number] 27 - 31 [facility] MCHC 32.4gm/dL Normal [id number] 31 - 36 [facility] RDW 15.9% Above high normal [id number] 11.5 - 15.5 [facility] Platelet 73k/uL Below low normal 965608324876 145 - 400 [facility] MPV 11.9FL Above high normal 430128892713 7.5 - 10.4 [facility] NRBC auto 0/100wbcs Normal [id number] 0 - 2 [facility] NRBC Abs 0k/uL Normal [id number] 0 - 0.1 [facility] Neutro % 57% Normal [id number] 43 - 75 [facility] Neutro Absolute 2.6k/uL Normal 943917974930 1.7 - 8.1 [facility] Imm Gran % 5.1% Above high normal 890689311502 0.1 - 0. 3 [facility] Imm Gran Absolute 0.23k/uL Above high normal 52810226437 5 0.01 - 0.03 [facility] Lymph % 21.6% Normal [id number] 15 - 45 [facility] Lymph Absolute 1k/uL Normal [id number] 0.6 - 4.9 [facility] [place] % 11.6% Normal [id number] 3 - 12 [facility] Monocyte Abs 0.5k/uL Normal [id number] 0.1 - 1.3 [facility] Eos % 3.8% Normal [id number] 0 - 6 [facility] Eosinophil Abs 0.2k/uL Normal 393803185310 0 - 0.7 [facility] Basophil % 0.9% Normal [id number] 0 - 2 [facility] Basophil Abs 0k/uL Normal 265671419498 0 - 0.2 [facility] GLUCOMETER 252mg/dL Above high normal 205551675446 65 - 140 [facility] Lactic Acid Lvl 1.5mmol/L Normal 326353755560 0.5 - 2.2 [facility] GLUCOMETER 126mg/dL Normal 920828015275 65 - 140 [facility] GLUCOMETER 118mg/dL Normal [id number] 65 - 140 [facility] AbSc 2C Int Normal 655012040074 [facility] Testing Site Normal 768038651568 [facility] ABORh Int O POS Normal [id number] [facility] Tacrolimus Lvl 11.8ng/mL Normal [id number] 5 - 19 [facility] GFR [facility] [place] 107mL/min/1.73m2 Normal [id number] - [facility] Bili Direct 1mg/dL Above high normal 541889351914 0 - 0.3 [facility] Magnesium Lvl 1.4mg/dL Below low normal 786094354116 1.6 - 2.6 [facility] Phosphorus Lvl 2.4mg/dL Normal 978673422562 2.4 - 5.1 [facility] Sodium Lvl 133mmol/L Below low normal 884177172172 136 - 145 [facility] Potassium Lvl 4.7mmol/L Above high normal 127344380254 3.4 - 4.5 [facility] Chloride 101mmol/L Normal 290059223844 98 - 107 [facility] CO2 25mmol/L Normal [id number] 20 - 31 [facility] AGAP 7mmol/L Normal [id number] 5 - 15 [facility] Glucose Lvl Random 98mg/dL Normal 735056843853 65 - 140 [facility] BUN 13mg/dL Normal [id number] 9 - 23 [facility] Creatinine 0.64mg/dL Normal 760416489571 0.6 - 1.1 [facility] Calcium Lvl 8.7mg/dL Normal 595743431337 8.7 - 10.4 [facility] Alk Phos 91unit/L Normal 744028585527 46 - 116 [facility] AST 33unit/L Normal [id number] 0 - 33 [facility] ALT 37unit/L Normal [id number] 10 - 49 [facility] Total Protein 6.4gm/dL Normal 637823839264 5.7 - 8.2 [facility] Albumin Lvl 3gm/dL Below low normal 000619507138 3.2 - 4. 8 [facility] Globulin 3.4gm/dL Normal [id number] 1.3 - 4.7 [facility] A/G Ratio 0.9 Below low normal 762691627627 1 - 3.8 [facility] Bili Total 1.8mg/dL Above high normal 701802559981 0.2 - 1. 1 [facility] Fibrinogen 510mg/dL Normal 347296853290 174 - 514 [facility] PTT 26.9sec Normal 837059642733 22.2 - 35 [facility] PT 15.9sec Above high normal 700924647757 12.2 - 14.8 [facility] INR 1.2 Normal 151933021454 0.8 - 1.2 [facility] WBC 3.3k/uL Below low normal [id number] 4 - 10.8 [facility] RBC 2.81million/uL Below low normal 272247032702 4.2 - 5.5 [facility] Hgb 7.9gm/dL Below low normal 435748070141 12.5 - 16.5 [facility] Hct 24% Below low normal [id number] 37.5 - 49.5 [facility] MCV 85.4FL Normal 851302929242 81 - 100 [facility] MCH 28.1pg Normal [id number] 27 - 31 [facility] MCHC 32.9gm/dL Normal [id number] 31 - 36 [facility] RDW 15.9% Above high normal 048549104607 11.5 - 15.5 [facility] Platelet 59k/uL Below low normal 628726236736 145 - 400 [facility] MPV 12.1FL Above high normal 260711032703 7.5 - 10.4 [facility] NRBC auto 0/100wbcs Normal 121696554652 0 - 2 [facility] NRBC Abs 0k/uL Normal [id number] 0 - 0.1 [facility] Neutro % 60.6% Normal [id number] 43 - 75 [facility] Neutro Absolute 2k/uL Normal 858894982045 1.7 - 8.1 [facility] Imm Gran % 6.4% Above high normal 435096603408 0.1 - 0. 3 [facility] Imm Gran Absolute 0.21k/uL Above high normal 97950922439 7 0.01 - 0.03 [facility] Lymph % 18.2% Normal [id number] 15 - 45 [facility] Lymph Absolute 0.6k/uL Normal [id number] 0.6 - 4.9 [facility] [place] % 10.6% Normal [id number] 3 - 12 [facility] Monocyte Abs 0.4k/uL Normal 943413503901 0.1 - 1.3 [facility] Eos % 3.6% Normal [id number] 0 - 6 [facility] Eosinophil Abs 0.1k/uL Normal 820862064924 0 - 0.7 [facility] Basophil % 0.6% Normal 260506826550 0 - 2 [facility] Basophil Abs 0k/uL Normal [id number] 0 - 0.2 [facility] GLUCOMETER 115mg/dL Normal [id number] 65 - 140 [facility] GLUCOMETER 115mg/dL Normal 718539250464 65 - 140 [facility] GLUCOMETER 169mg/dL Above high normal 158044517712 65 - 140 [facility] Hepatitis B DNA by PCR Quant Normal [id number] - [facility] GLUCOMETER 124mg/dL Normal [id number] 65 - 140 [facility] Tacrolimus Lvl 11.1ng/mL Normal [id number] 5 - 19 [facility] G[facility] [place] 109mL/min/1.73m2 Normal [id number] - [facility] Sodium Lvl 135mmol/L Below low normal 940646083513 136 - 145 [facility] Potassium Lvl 4.9mmol/L Above high normal 535836476388 3.4 - 4.5 [facility] Chloride 104mmol/L Normal [id number] 98 - 107 [facility] CO2 26mmol/L Normal [id number] 20 - 31 [facility] AGAP 5mmol/L Normal [id number] 5 - 15 [facility] Glucose Lvl Random 107mg/dL Normal [id number] 65 - 140 [facility] BUN 12mg/dL Normal [id number] 9 - 23 [facility] Creatinine 0.6mg/dL Normal [id number] 0.6 - 1.1 [facility] Calcium Lvl 8.6mg/dL Below low normal 448124682870 8.7 - 10.4 [facility] Alk Phos 100unit/L Normal [id number] 46 - 116 [facility] AST 50unit/L Above high normal 528901015173 0 - 33 [facility] ALT 51unit/L Above high normal 360502899261 10 - 49 [facility] Total Protein 6.2gm/dL Normal 964499683930 5.7 - 8.2 [facility] Albumin Lvl 2.9gm/dL Below low normal 446938974180 3.2 - 4. 8 [facility] Globulin 3.3gm/dL Normal 290799719932 1.3 - 4.7 [facility] A/G Ratio 0.9 Below low normal 473428778893 1 - 3.8 [facility] Bili Total 1.3mg/dL Above high normal 990235047082 0.2 - 1. 1 [facility] Vancomycin Rn 4.7mcg/mL Below low normal 910892178552 10 - 4 0 [facility] Bili Direct 0.7mg/dL Above high normal 097149606684 0 - 0.3 [facility] Magnesium Lvl 1.4mg/dL Below low normal 328767573659 1.6 - 2.6 [facility] Phosphorus Lvl 2.7mg/dL Normal 620652516471 2.4 - 5.1 [facility] PT 15.8sec Above high normal 554535611221 12.2 - 14.8 [facility] INR 1.2 Normal [id number] 0.8 - 1.2 [facility] Fibrinogen 504mg/dL Normal 694156675125 174 - 514 [facility] PTT 28.9sec Normal 508647818948 22.2 - 35 [facility] WBC 2.73k/uL Below low normal 277535804152 4 - 10.8 [facility] RBC 2.65million/uL Below low normal 528356870104 4.2 - 5.5 [facility] Hgb 7.3gm/dL Below low normal 409847136489 12.5 - 16.5 [facility] Hct 23.4% Below low normal 293033130200 37.5 - 49.5 [facility] MCV 88.3FL Normal 753529425351 81 - 100 [facility] MCH 27.5pg Normal 432155787144 27 - 31 [facility] MCHC 31.2gm/dL Normal 668362078809 31 - 36 [facility] RDW 15.9% Above high normal [id number] 11.5 - 15.5 [facility] Platelet 54k/uL Below low normal 416633750859 145 - 400 [facility] MPV 12.3FL Above high normal [id number] 7.5 - 10.4 [facility] NRBC auto 0/100wbcs Normal 762933488089 0 - 2 [facility] NRBC Abs 0k/uL Normal 512291090909 0 - 0.1 [facility] Neutro % 59.4% Normal [id number] 43 - 75 [facility] Neutro Absolute 1.6k/uL Below low normal [id number] 1.7 - 8.1 [facility] Imm Gran % 4% Above high normal 505224443105 0.1 - 0. 3 [facility] Imm Gran Absolute 0.11k/uL Above high normal 77657658673 1 0.01 - 0.03 [facility] Lymph % 19.4% Normal [id number] 15 - 45 [facility] Lymph Absolute 0.5k/uL Below low normal 695685438933 0.6 - 4.9 [facility] [place] % 11.7% Normal [id number] 3 - 12 [facility] Monocyte Abs 0.3k/uL Normal 548448511150 0.1 - 1.3 [facility] Eos % 4.4% Normal [id number] 0 - 6 [facility] Eosinophil Abs 0.1k/uL Normal 919075609875 0 - 0.7 [facility] Basophil % 1.1% Normal [id number] 0 - 2 [facility] Basophil Abs 0k/uL Normal 683270916414 0 - 0.2 [facility] GLUCOMETER 129mg/dL Normal [id number] 65 - 140 [facility] GLUCOMETER 134mg/dL Normal [id number] 65 - 140 [facility] Lactic Acid Lvl 0.9mmol/L Normal 598349227329 0.5 - 2.2 [facility] GLUCOMETER 127mg/dL Normal [id number] 65 - 140 [facility] Hepatitis C RNA by PCR Quant Normal [id number] - [facility] HIV 1 RNA by PCR Quant Normal [id number] - [facility] GLUCOMETER 103mg/dL Normal [id number] 65 - 140 [facility] Tacrolimus Lvl 6.8ng/mL Normal 925389292939 5 - 19 [facility] G[facility] [place] 115mL/min/1.73m2 Normal [id number] - [facility] Phosphorus Lvl 2.3mg/dL Below low normal [id number] 2.4 - 5.1 [facility] Bili Direct 0.9mg/dL Above high normal [id number] 0 - 0.3 [facility] Magnesium Lvl 1mg/dL Below low normal [id number] 1.6 - 2.6 [facility] Sodium Lvl 135mmol/L Below low normal [id number] 136 - 145 [facility] Potassium Lvl 4.5mmol/L Normal [id number] 3.4 - 4.5 [facility] Chloride 103mmol/L Normal [id number] 98 - 107 [facility] CO2 28mmol/L Normal [id number] 20 - 31 [facility] AGAP 4mmol/L Below low normal [id number] 5 - 15 [facility] Glucose Lvl Random 101mg/dL Normal [id number] 65 - 140 [facility] BUN 10mg/dL Normal [id number] 9 - 23 [facility] Creatinine 0.51mg/dL Below low normal [id number] 0.6 - 1.1 [facility] Calcium Lvl 8.7mg/dL Normal [id number] 8.7 - 10.4 [facility] Alk Phos 82unit/L Normal [id number] 46 - 116 [facility] AST 33unit/L Normal [id number] 0 - 33 [facility] ALT 36unit/L Normal [id number] 10 - 49 [facility] Total Protein 6.3gm/dL Normal [id number] 5.7 - 8.2 [facility] Albumin Lvl 2.9gm/dL Below low normal [id number] 3.2 - 4. 8 [facility] Globulin 3.4gm/dL Normal [id number] 1.3 - 4.7 [facility] A/G Ratio 0.9 Below low normal [id number] 1 - 3.8 [facility] Bili Total 1.6mg/dL Above high normal [id number] 0.2 - 1. 1 [facility] PT 16sec Above high normal [id number] 12.2 - 14.8 [facility] INR 1.2 Normal [id number] 0.8 - 1.2 [facility] Fibrinogen 489mg/dL Normal [id number] 174 - 514 [facility] PTT 28.4sec Normal [id number] 22.2 - 35 [facility] Neutro % Interp See Comment Normal [id number] [facility] WBC 3.24k/uL Below low normal [id number] 4 - 10.8 [facility] RBC 2.77million/uL Below low normal [id number] 4.2 - 5.5 [facility] Hgb 7.6gm/dL Below low normal [id number] 12.5 - 16.5 [facility] Hct 24.1% Below low normal [id number] 37.5 - 49.5 [facility] MCV 87FL Normal [id number] 81 - 100 [facility] MCH 27.4pg Normal [id number] 27 - 31 [facility] MCHC 31.5gm/dL Normal [id number] 31 - 36 [facility] RDW 15.6% Above high normal [id number] 11.5 - 15.5 [facility] Platelet 58k/uL Below low normal [id number] 145 - 400 [facility] MPV 11.9FL Above high normal [id number] 7.5 - 10.4 [facility] NRBC auto 0/100wbcs Normal [id number] 0 - 2 [facility] NRBC Abs 0k/uL Normal [id number] 0 - 0.1 [facility] Neutro % 68.2% Normal [id number] 43 - 75 [facility] Neutro Absolute 2.2k/uL Normal [id number] 1.7 - 8.1 [facility] Imm Gran % 4.9% Above high normal [id number] 0.1 - 0. 3 [facility] Imm Gran Absolute 0.16k/uL Above high normal 45667096084 7 0.01 - 0.03 [facility] Lymph % 12.7% Below low normal [id number] 15 - 45 [facility] Lymph Absolute 0.4k/uL Below low normal [id number] 0.6 - 4.9 [facility] [place] % 10.2% Normal [id number] 3 - 12 [facility] Monocyte Abs 0.3k/uL Normal [id number] 0.1 - 1.3 [facility] Eos % 3.4% Normal [id number] 0 - 6 [facility] Eosinophil Abs 0.1k/uL Normal [id number] 0 - 0.7 [facility] Basophil % 0.6% Normal [id number] 0 - 2 [facility] Basophil Abs 0k/uL Normal [id number] 0 - 0.2 [facility] GLUCOMETER 117mg/dL Normal [id number] 65 - 140 [facility] CMV DNA Quant PCR 663IU/mL Above high normal [id number] - [facility] GLUCOMETER 131mg/dL Normal [id number] 65 - 140 [facility] GLUCOMETER 148mg/dL Above high normal [id number] 65 - 140 [facility] GLUCOMETER 100mg/dL Normal [id number] 65 - 140 [facility] ABORh Int O POS Normal [id number] [facility] AbSc 2C Int Normal [id number] [facility] Testing Site Normal [id number] [facility] Tacrolimus Lvl 7.7ng/mL Normal 927883007587 5 - 19 [facility] GFR [facility] [place] 116mL/min/1.73m2 Normal [id number] - [facility] Sodium Lvl 134mmol/L Below low normal [id number] 136 - 145 [facility] Potassium Lvl 4.9mmol/L Above high normal [id number] 3.4 - 4.5 [facility] Chloride 101mmol/L Normal [id number] 98 - 107 [facility] CO2 28mmol/L Normal [id number] 20 - 31 [facility] AGAP 5mmol/L Normal [id number] 5 - 15 [facility] Glucose Lvl Random 97mg/dL Normal [id number] 65 - 140 [facility] BUN 9mg/dL Normal [id number] 9 - 23 [facility] Creatinine 0.49mg/dL Below low normal 262255319617 0.6 - 1.1 [facility] Calcium Lvl 8.4mg/dL Below low normal 948338584510 8.7 - 10.4 [facility] Alk Phos 78unit/L Normal [id number] 46 - 116 [facility] AST 38unit/L Above high normal [id number] 0 - 33 [facility] ALT 31unit/L Normal [id number] 10 - 49 [facility] Total Protein 6gm/dL Normal [id number] 5.7 - 8.2 [facility] Albumin Lvl 2.8gm/dL Below low normal [id number] 3.2 - 4. 8 [facility] Globulin 3.2gm/dL Normal [id number] 1.3 - 4.7 [facility] A/G Ratio 0.9 Below low normal [id number] 1 - 3.8 [facility] Bili Total 1.4mg/dL Above high normal 745834649223 0.2 - 1. 1 [facility] Bili Direct 0.8mg/dL Above high normal 385274369470 0 - 0.3 [facility] Magnesium Lvl 1.3mg/dL Below low normal [id number] 1.6 - 2.6 [facility] Phosphorus Lvl 2.4mg/dL Normal [id number] 2.4 - 5.1 [facility] Vancomycin Rn 16mcg/mL Normal [id number] 10 - 40 [facility] PT 15.8sec Above high normal [id number] 12.2 - 14.8 [facility] INR 1.2 Normal [id number] 0.8 - 1.2 [facility] PTT 31.1sec Normal 983547981068 22.2 - 35 [facility] Fibrinogen 502mg/dL Normal [id number] 174 - 514 [facility] WBC 2.5k/uL Below low normal 958595805950 4 - 10.8 [facility] RBC 2.73million/uL Below low normal 027149154503 4.2 - 5.5 [facility] Hgb 7.9gm/dL Below low normal 446073619146 12.5 - 16.5 [facility] Hct 23.9% Below low normal 511525481797 37.5 - 49.5 [facility] MCV 87.5FL Normal [id number] 81 - 100 [facility] MCH 28.9pg Normal [id number] 27 - 31 [facility] MCHC 33.1gm/dL Normal [id number] 31 - 36 [facility] RDW 15.8% Above high normal [id number] 11.5 - 15.5 [facility] Platelet 55k/uL Below low normal [id number] 145 - 400 [facility] MPV 12.4FL Above high normal 112487314264 7.5 - 10.4 [facility] NRBC auto 0/100wbcs Normal [id number] 0 - 2 [facility] NRBC Abs 0k/uL Normal [id number] 0 - 0.1 [facility] Neutro % 59.2% Normal [id number] 43 - 75 [facility] Neutro Absolute 1.5k/uL Below low normal [id number] 1.7 - 8.1 [facility] Imm Gran % 7.2% Above high normal 838727139571 0.1 - 0. 3 [facility] Imm Gran Absolute 0.18k/uL Above high normal 28499813284 0 0.01 - 0.03 [facility] Lymph % 16% Normal [id number] 15 - 45 [facility] Lymph Absolute 0.4k/uL Below low normal [id number] 0.6 - 4.9 [facility] [place] % 12% Normal [id number] 3 - 12 [facility] Monocyte Abs 0.3k/uL Normal [id number] 0.1 - 1.3 [facility] Eos % 4.4% Normal [id number] 0 - 6 [facility] Eosinophil Abs 0.1k/uL Normal [id number] 0 - 0.7 [facility] Basophil % 1.2% Normal [id number] 0 - 2 [facility] Basophil Abs 0k/uL Normal 515575296054 0 - 0.2 [facility] GLUCOMETER 122mg/dL Normal [id number] 65 - 140 [facility] GLUCOMETER 121mg/dL Normal [id number] 65 - 140 [facility] Lactic Acid Lvl 1.2mmol/L Normal 180498099204 0.5 - 2.2 [facility] GLUCOMETER 137mg/dL Normal [id number] 65 - 140 [facility] Sodium Lvl 134mmol/L Below low normal [id number] 136 - 145 [facility] Potassium Lvl 4.8mmol/L Above high normal 097635760973 3.4 - 4.5 [facility] Chloride 101mmol/L Normal [id number] 98 - 107 [facility] CO2 25mmol/L Normal [id number] 20 - 31 [facility] AGAP 8mmol/L Normal [id number] 5 - 15 [facility] GFR [facility] [place] 118mL/min/1.73m2 Normal [id number] - [facility] Glucose Lvl Random 99mg/dL Normal [id number] 65 - 140 [facility] BUN 9mg/dL Normal [id number] 9 - 23 [facility] Creatinine 0.47mg/dL Below low normal [id number] 0.6 - 1.1 [facility] Calcium Lvl 8.3mg/dL Below low normal 700296375550 8.7 - 10.4 [facility] Alk Phos 82unit/L Normal [id number] 46 - 116 [facility] AST 34unit/L Above high normal [id number] 0 - 33 [facility] ALT 29unit/L Normal [id number] 10 - 49 [facility] Total Protein 6gm/dL Normal [id number] 5.7 - 8.2 [facility] Albumin Lvl 2.9gm/dL Below low normal [id number] 3.2 - 4. 8 [facility] Globulin 3.1gm/dL Normal [id number] 1.3 - 4.7 [facility] A/G Ratio 0.9 Below low normal 240097115921 1 - 3.8 [facility] Bili Total 1.4mg/dL Above high normal 458397953451 0.2 - 1. 1 [facility] Tacrolimus Lvl 8.4ng/mL Normal 525996541552 5 - 19 [facility] Bili Direct 0.8mg/dL Above high normal 028048149544 0 - 0.3 [facility] Phosphorus Lvl 2.6mg/dL Normal [id number] 2.4 - 5.1 [facility] Magnesium Lvl 2mg/dL Normal 505354460575 1.6 - 2.6 [facility] Fibrinogen 539mg/dL Above high normal 818655138131 174 - 51 4 [facility] PTT 28.8sec Normal [id number] 22.2 - 35 [facility] PT 15.8sec Above high normal 224205421209 12.2 - 14.8 [facility] INR 1.2 Normal [id number] 0.8 - 1.2 [facility] WBC 2.4k/uL Below low normal 195950782304 4 - 10.8 [facility] RBC 2.92million/uL Below low normal 447449629265 4.2 - 5.5 [facility] Hgb 8.1gm/dL Below low normal 880725468027 12.5 - 16.5 [facility] Hct 25.4% Below low normal 392194606454 37.5 - 49.5 [facility] MCV 87FL Normal [id number] 81 - 100 [facility] MCH 27.7pg Normal [id number] 27 - 31 [facility] MCHC 31.9gm/dL Normal [id number] 31 - 36 [facility] RDW 15.8% Above high normal [id number] 11.5 - 15.5 [facility] Platelet 53k/uL Below low normal [id number] 145 - 400 [facility] MPV 12.2FL Above high normal 864429862838 7.5 - 10.4 [facility] NRBC auto 0/100wbcs Normal [id number] 0 - 2 [facility] NRBC Abs 0k/uL Normal [id number] 0 - 0.1 [facility] Neutro % 63.7% Normal [id number] 43 - 75 [facility] Neutro Absolute 1.5k/uL Below low normal 802762980548 1.7 - 8.1 [facility] Imm Gran % 7.5% Above high normal 945890430254 0.1 - 0. 3 [facility] Imm Gran Absolute 0.18k/uL Above high normal 78485435603 1 0.01 - 0.03 [facility] Lymph % 12.5% Below low normal [id number] 15 - 45 [facility] Lymph Absolute 0.3k/uL Below low normal 775141644915 0.6 - 4.9 [facility] [place] % 10.4% Normal [id number] 3 - 12 [facility] Monocyte Abs 0.2k/uL Normal [id number] 0.1 - 1.3 [facility] Eos % 4.6% Normal [id number] 0 - 6 [facility] Eosinophil Abs 0.1k/uL Normal 140475307577 0 - 0.7 [facility] Basophil % 1.3% Normal [id number] 0 - 2 [facility] Basophil Abs 0k/uL Normal 339393428839 0 - 0.2 [facility] GLUCOMETER 116mg/dL Normal [id number] 65 - 140 [facility] Total Bili BF <0.2 Normal [id number] [facility] Direct Bili BF <0.10 Normal 845826416618 [facility] Bili BF Type Normal 469110473389 [facility] Indirec Bili BF see comment Normal [id number] [facility] Amylase BF Miscellaneous 238unit/L Normal 473131552552 [facility] Triglycerides BF Miscellaneous 118mg/dL Normal [id number] [facility] GLUCOMETER 126mg/dL Normal [id number] 65 - 140 [facility] GLUCOMETER 142mg/dL Above high normal 972961317249 65 - 140 [facility] GLUCOMETER 110mg/dL Normal [id number] 65 - 140 [facility] Tacrolimus Lvl 8.5ng/mL Normal [id number] 5 - 19 [facility] [place] 114mL/min/1.73m2 Normal [id number] - [facility] Sodium Lvl 131mmol/L Below low normal [id number] 136 - 145 [facility] Potassium Lvl 5.1mmol/L Above high normal 744296171843 3.4 - 4.5 [facility] Chloride 101mmol/L Normal [id number] 98 - 107 [facility] CO2 25mmol/L Normal [id number] 20 - 31 [facility] AGAP 5mmol/L Normal [id number] 5 - 15 [facility] Glucose Lvl Random 90mg/dL Normal [id number] 65 - 140 [facility] BUN 8mg/dL Below low normal 407232572890 9 - 23 [facility] Creatinine 0.52mg/dL Below low normal 111785494204 0.6 - 1.1 [facility] Calcium Lvl 8.3mg/dL Below low normal 574554933281 8.7 - 10.4 [facility] Alk Phos 79unit/L Normal [id number] 46 - 116 [facility] AST 36unit/L Above high normal 828648779621 0 - 33 [facility] ALT 33unit/L Normal [id number] 10 - 49 [facility] Total Protein 6gm/dL Normal [id number] 5.7 - 8.2 [facility] Albumin Lvl 2.8gm/dL Below low normal 287416456404 3.2 - 4. 8 [facility] Globulin 3.2gm/dL Normal 214530353610 1.3 - 4.7 [facility] A/G Ratio 0.9 Below low normal 600522298083 1 - 3.8 [facility] Bili Total 1.7mg/dL Above high normal 608610389263 0.2 - 1. 1 [facility] Bili Direct 0.9mg/dL Above high normal 868257433061 0 - 0.3 [facility] Phosphorus Lvl 2.3mg/dL Below low normal [id number] 2.4 - 5.1 [facility] Magnesium Lvl 1mg/dL Below low normal 983475507282 1.6 - 2.6 [facility] PTT 28.3sec Normal [id number] 22.2 - 35 [facility] PT 15.7sec Above high normal 366347727140 12.2 - 14.8 [facility] INR 1.2 Normal [id number] 0.8 - 1.2 [facility] Fibrinogen 612mg/dL Above high normal 792015822273 174 - 51 4 [facility] WBC 2.24k/uL Below low normal 194858371472 4 - 10.8 [facility] RBC 2.92million/uL Below low normal 755281329386 4.2 - 5.5 [facility] Hgb 8.3gm/dL Below low normal 932925298525 12.5 - 16.5 [facility] Hct 25.3% Below low normal 587079714440 37.5 - 49.5 [facility] MCV 86.6FL Normal [id number] 81 - 100 [facility] MCH 28.4pg Normal [id number] 27 - 31 [facility] MCHC 32.8gm/dL Normal [id number] 31 - 36 [facility] RDW 15.8% Above high normal [id number] 11.5 - 15.5 [facility] Platelet 43k/uL Below low normal [id number] 145 - 400 [facility] Imm Platelet % 5.9% Normal [id number] 1.1 - 6.7 [facility] MPV 11.5FL Above high normal 289913827565 7.5 - 10.4 [facility] NRBC auto 0/100wbcs Normal [id number] 0 - 2 [facility] NRBC Abs 0k/uL Normal 002998681787 0 - 0.1 [facility] Neutro % 58.9% Normal [id number] 43 - 75 [facility] Neutro Absolute 1.3k/uL Below low normal 124293220377 1.7 - 8.1 [facility] Imm Gran % 7.6% Above high normal [id number] 0.1 - 0. 3 [facility] Imm Gran Absolute 0.17k/uL Above high normal 91452758329 8 0.01 - 0.03 [facility] Lymph % 15.2% Normal [id number] 15 - 45 [facility] Lymph Absolute 0.3k/uL Below low normal [id number] 0.6 - 4.9 [facility] [place] % 11.6% Normal [id number] 3 - 12 [facility] Monocyte Abs 0.3k/uL Normal [id number] 0.1 - 1.3 [facility] Eos % 4.9% Normal [id number] 0 - 6 [facility] Eosinophil Abs 0.1k/uL Normal [id number] 0 - 0.7 [facility] Basophil % 1.8% Normal [id number] 0 - 2 [facility] Basophil Abs 0k/uL Normal 438522224680 0 - 0.2 [facility] GLUCOMETER 123mg/dL Normal [id number] 65 - 140 [facility] GLUCOMETER 101mg/dL Normal [id number] 65 - 140 [facility] Lactic Acid Lvl 1.6mmol/L Normal 323885856894 0.5 - 2.2 [facility] GLUCOMETER 122mg/dL Normal 820300902084 65 - 140 [facility] GLUCOMETER 120mg/dL Normal [id number] 65 - 140 [facility] AbSc 2C Int Normal [id number] [facility] Testing Site Normal [id number] [facility] ABORh Int O POS Normal 640387868495 [facility] GLUCOMETER 105mg/dL Normal [id number] 65 - 140 [facility] Tacrolimus Lvl 6.5ng/mL Normal [id number] 5 - 19 [facility] [place] 117mL/min/1.73m2 Normal [id number] - [facility] Sodium Lvl 131mmol/L Below low normal 414874615645 136 - 145 [facility] Potassium Lvl 4.9mmol/L Above high normal 740668919729 3.4 - 4.5 [facility] Chloride 101mmol/L Normal 093249930186 98 - 107 [facility] CO2 26mmol/L Normal [id number] 20 - 31 [facility] AGAP 4mmol/L Below low normal 583641936460 5 - 15 [facility] Glucose Lvl Random 97mg/dL Normal [id number] 65 - 140 [facility] BUN 10mg/dL Normal [id number] 9 - 23 [facility] Creatinine 0.48mg/dL Below low normal 849314579469 0.6 - 1.1 [facility] Calcium Lvl 8.2mg/dL Below low normal 089063892151 8.7 - 10.4 [facility] Alk Phos 83unit/L Normal [id number] 46 - 116 [facility] AST 34unit/L Above high normal 356196604062 0 - 33 [facility] ALT 30unit/L Normal [id number] 10 - 49 [facility] Total Protein 6gm/dL Normal 824459686621 5.7 - 8.2 [facility] Albumin Lvl 2.9gm/dL Below low normal [id number] 3.2 - 4. 8 [facility] Globulin 3.1gm/dL Normal [id number] 1.3 - 4.7 [facility] A/G Ratio 0.9 Below low normal 754436816645 1 - 3.8 [facility] Bili Total 1.6mg/dL Above high normal 223026445344 0.2 - 1. 1 [facility] Phosphorus Lvl 1.8mg/dL Below low normal 580222365240 2.4 - 5.1 [facility] Bili Direct 0.9mg/dL Above high normal 363197431636 0 - 0.3 [facility] Magnesium Lvl 1.1mg/dL Below low normal 176299736303 1.6 - 2.6 [facility] PTT 27.7sec Normal [id number] 22.2 - 35 [facility] PT 15.5sec Above high normal 882162550985 12.2 - 14.8 [facility] INR 1.2 Normal 260821482403 0.8 - 1.2 [facility] Fibrinogen 539mg/dL Above high normal 306993812225 174 - 51 4 [facility] WBC 2.35k/uL Below low normal 547943777038 4 - 10.8 [facility] RBC 2.88million/uL Below low normal [id number] 4.2 - 5.5 [facility] Hgb 8.1gm/dL Below low normal 309818708351 12.5 - 16.5 [facility] Hct 25.5% Below low normal 118200360741 37.5 - 49.5 [facility] MCV 88.5FL Normal [id number] 81 - 100 [facility] MCH 28.1pg Normal [id number] 27 - 31 [facility] MCHC 31.8gm/dL Normal [id number] 31 - 36 [facility] RDW 15.7% Above high normal 617225723302 11.5 - 15.5 [facility] Platelet 48k/uL Below low normal 468649501358 145 - 400 [facility] MPV 10.7FL Above high normal 512090722236 7.5 - 10.4 [facility] NRBC auto 0/100wbcs Normal 235130709355 0 - 2 [facility] NRBC Abs 0k/uL Normal [id number] 0 - 0.1 [facility] Neutro % 60.9% Normal [id number] 43 - 75 [facility] Neutro Absolute 1.4k/uL Below low normal 979583725125 1.7 - 8.1 [facility] Imm Gran % 8.9% Above high normal 889694293922 0.1 - 0. 3 [facility] Imm Gran Absolute 0.21k/uL Above high normal 54854520546 2 0.01 - 0.03 [facility] Lymph % 12.3% Below low normal 754278408997 15 - 45 [facility] Lymph Absolute 0.3k/uL Below low normal 954056024811 0.6 - 4.9 [facility] [place] % 12.3% Above high normal [id number] 3 - 12 [facility] Monocyte Abs 0.3k/uL Normal [id number] 0.1 - 1.3 [facility] Eos % 4.3% Normal [id number] 0 - 6 [facility] Eosinophil Abs 0.1k/uL Normal [id number] 0 - 0.7 [facility] Basophil % 1.3% Normal 606406250929 0 - 2 [facility] Basophil Abs 0k/uL Normal 161753481440 0 - 0.2 [facility] GLUCOMETER 113mg/dL Normal [id number] 65 - 140 [facility] GLUCOMETER 119mg/dL Normal [id number] 65 - 140 [facility] GLUCOMETER 113mg/dL Normal [id number] 65 - 140 [facility] GLUCOMETER 102mg/dL Normal [id number] 65 - 140 [facility] Tacrolimus Lvl 7.8ng/mL Normal 856464394176 5 - 19 [facility] [place] 114mL/min/1.73m2 Normal [id number] - [facility] Sodium Lvl 130mmol/L Below low normal 756133610729 136 - 145 [facility] Potassium Lvl 4.7mmol/L Above high normal 815732158820 3.4 - 4.5 [facility] Chloride 100mmol/L Normal 582804237938 98 - 107 [facility] CO2 25mmol/L Normal [id number] 20 - 31 [facility] AGAP 5mmol/L Normal [id number] 5 - 15 [facility] Glucose Lvl Random 82mg/dL Normal [id number] 65 - 140 [facility] BUN 10mg/dL Normal 783636884111 9 - 23 [facility] Creatinine 0.52mg/dL Below low normal 489292426895 0.6 - 1.1 [facility] Calcium Lvl 8.1mg/dL Below low normal 030011521117 8.7 - 10.4 [facility] Alk Phos 85unit/L Normal 548600883168 46 - 116 [facility] AST 38unit/L Above high normal [id number] 0 - 33 [facility] ALT 41unit/L Normal [id number] 10 - 49 [facility] Total Protein 5.6gm/dL Below low normal 167962341993 5.7 - 8.2 [facility] Albumin Lvl 2.7gm/dL Below low normal 287739724105 3.2 - 4. 8 [facility] Globulin 2.9gm/dL Normal [id number] 1.3 - 4.7 [facility] A/G Ratio 0.9 Below low normal 108334631184 1 - 3.8 [facility] Bili Total 1.7mg/dL Above high normal 873712780064 0.2 - 1. 1 [facility] Bili Direct 1mg/dL Above high normal 758614933163 0 - 0.3 [facility] Phosphorus Lvl 2mg/dL Below low normal 441885991326 2.4 - 5.1 [facility] Magnesium Lvl 1.2mg/dL Below low normal 245290588266 1.6 - 2.6 [facility] PT 16sec Above high normal 274870446628 12.2 - 14.8 [facility] INR 1.3 Above high normal 842434925624 0.8 - 1.2 [facility] Fibrinogen 554mg/dL Above high normal 333301488053 174 - 51 4 [facility] PTT 28.6sec Normal 318383902919 22.2 - 35 [facility] Imm Platelet Comment See Comment Normal [id number] [facility] WBC 2.59k/uL Below low normal [id number] 4 - 10.8 [facility] RBC 2.84million/uL Below low normal 737645758268 4.2 - 5.5 [facility] Hgb 8.2gm/dL Below low normal 558418309899 12.5 - 16.5 [facility] Hct 24.7% Below low normal 545230488335 37.5 - 49.5 [facility] MCV 87FL Normal [id number] 81 - 100 [facility] MCH 28.9pg Normal [id number] 27 - 31 [facility] MCHC 33.2gm/dL Normal [id number] 31 - 36 [facility] RDW 15.6% Above high normal 941746271157 11.5 - 15.5 [facility] Platelet 40k/uL Below low normal [id number] 145 - 400 [facility] Imm Platelet % 4.9% Normal [id number] 1.1 - 6.7 [facility] MPV 11.9FL Above high normal 382414654802 7.5 - 10.4 [facility] NRBC auto 0/100wbcs Normal [id number] 0 - 2 [facility] NRBC Abs 0k/uL Normal 358577290656 0 - 0.1 [facility] Neutro % 64.5% Normal 984893522388 43 - 75 [facility] Neutro Absolute 1.7k/uL Normal 723095373914 1.7 - 8.1 [facility] Imm Gran % 6.2% Above high normal 396114822654 0.1 - 0. 3 [facility] Imm Gran Absolute 0.16k/uL Above high normal 72158127947 2 0.01 - 0.03 [facility] Lymph % 12.7% Below low normal 971986617497 15 - 45 [facility] Lymph Absolute 0.3k/uL Below low normal 565071421382 0.6 - 4.9 [facility] [place] % 11.2% Normal [id number] 3 - 12 [facility] Monocyte Abs 0.3k/uL Normal [id number] 0.1 - 1.3 [facility] Eos % 4.2% Normal [id number] 0 - 6 [facility] Eosinophil Abs 0.1k/uL Normal 717059164409 0 - 0.7 [facility] Basophil % 1.2% Normal 741690615877 0 - 2 [facility] Basophil Abs 0k/uL Normal 160827177665 0 - 0.2 [facility] GLUCOMETER 102mg/dL Normal 558620769585 65 - 140 [facility] GLUCOMETER 107mg/dL Normal 098309331380 65 - 140 [facility] Lactic Acid Lvl 1.9mmol/L Normal 658640605535 0.5 - 2.2 [facility] GLUCOMETER 144mg/dL Above high normal 597156108664 65 - 140 [facility] GLUCOMETER 108mg/dL Normal [id number] 65 - 140 [facility] Sodium Lvl 129mmol/L Below low normal 266549797613 136 - 145 [facility] Potassium Lvl 4.6mmol/L Above high normal 791822525604 3.4 - 4.5 [facility] Chloride 100mmol/L Normal 931469502132 98 - 107 [facility] CO2 22mmol/L Normal [id number] 20 - 31 [facility] AGAP 7mmol/L Normal [id number] 5 - 15 [facility] GFR [facility] [place] 115mL/min/1.73m2 Normal 548790126864 - [facility] Glucose Lvl Random 97mg/dL Normal 109395614968 65 - 140 [facility] BUN 11mg/dL Normal [id number] 9 - 23 [facility] Creatinine 0.5mg/dL Below low normal 260609958193 0.6 - 1.1 [facility] Calcium Lvl 8mg/dL Below low normal 547152180147 8.7 - 10.4 [facility] Alk Phos 93unit/L Normal 422242129108 46 - 116 [facility] AST 29unit/L Normal [id number] 0 - 33 [facility] ALT 38unit/L Normal [id number] 10 - 49 [facility] Total Protein 5.8gm/dL Normal [id number] 5.7 - 8.2 [facility] Albumin Lvl 2.8gm/dL Below low normal 698231630999 3.2 - 4. 8 [facility] Globulin 3gm/dL Normal 430351524677 1.3 - 4.7 [facility] A/G Ratio 0.9 Below low normal [id number] 1 - 3.8 [facility] Bili Total 2.1mg/dL Above high normal 384684143245 0.2 - 1. 1 [facility] WBC 3.44k/uL Below low normal 155873279389 4 - 10.8 [facility] RBC 3.22million/uL Below low normal 020922758633 4.2 - 5.5 [facility] Hgb 9.2gm/dL Below low normal 444956101934 12.5 - 16.5 [facility] Hct 27.5% Below low normal 693572067084 37.5 - 49.5 [facility] MCV 85.4FL Normal [id number] 81 - 100 [facility] MCH 28.6pg Normal [id number] 27 - 31 [facility] MCHC 33.5gm/dL Normal [id number] 31 - 36 [facility] RDW 15.6% Above high normal [id number] 11.5 - 15.5 [facility] Platelet 46k/uL Below low normal 402373449404 145 - 400 [facility] MPV 10.7FL Above high normal [id number] 7.5 - 10.4 [facility] NRBC auto 0/100wbcs Normal [id number] 0 - 2 [facility] NRBC Abs 0k/uL Normal [id number] 0 - 0.1 [facility] Neutro % 69.5% Normal [id number] 43 - 75 [facility] Neutro Absolute 2.4k/uL Normal [id number] 1.7 - 8.1 [facility] Imm Gran % 6.1% Above high normal [id number] 0.1 - 0. 3 [facility] Imm Gran Absolute 0.21k/uL Above high normal 04238314394 7 0.01 - 0.03 [facility] Lymph % 8.1% Below low normal [id number] 15 - 45 [facility] Lymph Absolute 0.3k/uL Below low normal [id number] 0.6 - 4.9 [facility] [place] % 11% Normal [id number] 3 - 12 [facility] Monocyte Abs 0.4k/uL Normal [id number] 0.1 - 1.3 [facility] Eos % 4.1% Normal [id number] 0 - 6 [facility] Eosinophil Abs 0.1k/uL Normal [id number] 0 - 0.7 [facility] Basophil % 1.2% Normal [id number] 0 - 2 [facility] Basophil Abs 0k/uL Normal [id number] 0 - 0.2 [facility] GFR [facility] [place] 130mL/min/1.73m2 Normal [id number] - [facility] Sodium Lvl 136mmol/L Normal [id number] 136 - 145 [facility] Potassium Lvl 3.4mmol/L Normal [id number] 3.4 - 4.5 [facility] Chloride 113mmol/L Above high normal [id number] 98 - 107 [facility] CO2 17mmol/L Below low normal [id number] 20 - 31 [facility] AGAP 6mmol/L Normal [id number] 5 - 15 [facility] Glucose Lvl Random 71mg/dL Normal [id number] 65 - 140 [facility] BUN 9mg/dL Normal [id number] 9 - 23 [facility] Creatinine 0.34mg/dL Below low normal [id number] 0.6 - 1.1 [facility] Calcium Lvl 5.2mg/dL Critically low [id number] 8.7 - 10.4 [facility] Alk Phos 60unit/L Normal [id number] 46 - 116 [facility] AST 28unit/L Normal [id number] 0 - 33 [facility] ALT 23unit/L Normal [id number] 10 - 49 [facility] Total Protein 3.9gm/dL Below low normal [id number] 5.7 - 8.2 [facility] Albumin Lvl 1.8gm/dL Below low normal [id number] 3.2 - 4. 8 [facility] Globulin 2.1gm/dL Normal [id number] 1.3 - 4.7 [facility] A/G Ratio 0.9 Below low normal [id number] 1 - 3.8 [facility] Bili Total 1.3mg/dL Above high normal [id number] 0.2 - 1. 1 [facility] Bili Direct 0.8mg/dL Above high normal 469401472379 0 - 0.3 [facility] Magnesium Lvl 1.1mg/dL Below low normal [id number] 1.6 - 2.6 [facility] Phosphorus Lvl 1.4mg/dL Below low normal [id number] 2.4 - 5.1 [facility] Tacrolimus Lvl 5.7ng/mL Normal [id number] 5 - 19 [facility] WBC 2.42k/uL Below low normal [id number] 4 - 10.8 [facility] RBC 2.17million/uL Below low normal [id number] 4.2 - 5.5 [facility] Hgb 6.3gm/dL Critically low [id number] 12.5 - 16.5 [facility] Hct 19.1% Critically low [id number] 37.5 - 49.5 [facility] MCV 88FL Normal [id number] 81 - 100 [facility] MCH 29pg Normal [id number] 27 - 31 [facility] MCHC 33gm/dL Normal [id number] 31 - 36 [facility] RDW 15.9% Above high normal [id number] 11.5 - 15.5 [facility] Platelet 32k/uL Below low normal [id number] 145 - 400 [facility] MPV 11.1FL Above high normal [id number] 7.5 - 10.4 [facility] NRBC auto 0/100wbcs Normal [id number] 0 - 2 [facility] NRBC Abs 0k/uL Normal [id number] 0 - 0.1 [facility] Neutro % 73.6% Normal [id number] 43 - 75 [facility] Neutro Absolute 1.8k/uL Normal [id number] 1.7 - 8.1 [facility] Imm Gran % 5% Above high normal 645081957078 0.1 - 0. 3 [facility] Imm Gran Absolute 0.12k/uL Above high normal 44842120474 2 0.01 - 0.03 [facility] Lymph % 6.6% Below low normal 414625317990 15 - 45 [facility] Lymph Absolute 0.2k/uL Below low normal 635315188261 0.6 - 4.9 [facility] [place] % 10.7% Normal [id number] 3 - 12 [facility] Monocyte Abs 0.3k/uL Normal [id number] 0.1 - 1.3 [facility] Eos % 3.3% Normal [id number] 0 - 6 [facility] Eosinophil Abs 0.1k/uL Normal 834342870690 0 - 0.7 [facility] Basophil % 0.8% Normal [id number] 0 - 2 [facility] Basophil Abs 0k/uL Normal 469354752051 0 - 0.2 [facility] PT 17.4sec Above high normal 194618664041 12.2 - 14.8 [facility] INR 1.4 Above high normal 961362218314 0.8 - 1.2 [facility] PTT 32.7sec Normal 574789828144 22.2 - 35 [facility] Fibrinogen 435mg/dL Normal [id number] 174 - 514 [facility] GLUCOMETER 125mg/dL Normal [id number] 65 - 140 [facility] Neutro % Interp See Comment Normal [id number] [facility] WBC 4.41k/uL Normal [id number] 4 - 10.8 [facility] RBC 3.31million/uL Below low normal 609212179035 4.2 - 5.5 [facility] Hgb 9.3gm/dL Below low normal [id number] 12.5 - 16.5 [facility] Hct 28.2% Below low normal 732095664245 37.5 - 49.5 [facility] MCV 85.2FL Normal [id number] 81 - 100 [facility] MCH 28.1pg Normal [id number] 27 - 31 [facility] MCHC 33gm/dL Normal [id number] 31 - 36 [facility] RDW 15.6% Above high normal [id number] 11.5 - 15.5 [facility] Platelet 59k/uL Below low normal [id number] 145 - 400 [facility] MPV 11.2FL Above high normal [id number] 7.5 - 10.4 [facility] NRBC auto 0/100wbcs Normal [id number] 0 - 2 [facility] NRBC Abs 0k/uL Normal [id number] 0 - 0.1 [facility] Neutro % 72.3% Normal [id number] 43 - 75 [facility] Neutro Absolute 3.2k/uL Normal [id number] 1.7 - 8.1 [facility] Imm Gran % 4.5% Above high normal [id number] 0.1 - 0. 3 [facility] Imm Gran Absolute 0.2k/uL Above high normal 53766083936 8 0.01 - 0.03 [facility] Lymph % 8.4% Below low normal 893832668921 15 - 45 [facility] Lymph Absolute 0.4k/uL Below low normal 298936207340 0.6 - 4.9 [facility] [place] % 10% Normal [id number] 3 - 12 [facility] Monocyte Abs 0.4k/uL Normal [id number] 0.1 - 1.3 [facility] Eos % 4.1% Normal [id number] 0 - 6 [facility] Eosinophil Abs 0.2k/uL Normal 928060548039 0 - 0.7 [facility] Basophil % 0.7% Normal [id number] 0 - 2 [facility] Basophil Abs 0k/uL Normal [id number] 0 - 0.2 [facility] GLUCOMETER 230mg/dL Above high normal 412840985813 65 - 140 [facility] GLUCOMETER 123mg/dL Normal [id number] 65 - 140 [facility] Strongyloides IgG 0.2IV Normal 250427307088 - [facility] GLUCOMETER 104mg/dL Normal [id number] 65 - 140 [facility] Tacrolimus Lvl 6ng/mL Normal [id number] 5 - 19 [facility] GFR Center [place] 113mL/min/1.73m2 Normal [id number] - [facility] Magnesium Lvl 1.5mg/dL Below low normal [id number] 1.6 - 2.6 [facility] Phosphorus Lvl 1.8mg/dL Below low normal [id number] 2.4 - 5.1 [facility] Bili Direct 1.3mg/dL Above high normal 905047757401 0 - 0.3 [facility] Sodium Lvl 128mmol/L Below low normal 580218493427 136 - 145 [facility] Potassium Lvl 5mmol/L Above high normal 838313182400 3.4 - 4.5 [facility] Chloride 99mmol/L Normal [id number] 98 - 107 [facility] CO2 25mmol/L Normal [id number] 20 - 31 [facility] AGAP 4mmol/L Below low normal 428216812913 5 - 15 [facility] Glucose Lvl Random 97mg/dL Normal [id number] 65 - 140 [facility] BUN 14mg/dL Normal [id number] 9 - 23 [facility] Creatinine 0.54mg/dL Below low normal 548204708443 0.6 - 1.1 [facility] Calcium Lvl 8.2mg/dL Below low normal 480192735761 8.7 - 10.4 [facility] Alk Phos 100unit/L Normal 544234831871 46 - 116 [facility] AST 45unit/L Above high normal [id number] 0 - 33 [facility] ALT 44unit/L Normal [id number] 10 - 49 [facility] Total Protein 5.8gm/dL Normal [id number] 5.7 - 8.2 [facility] Albumin Lvl 2.9gm/dL Below low normal [id number] 3.2 - 4. 8 [facility] Globulin 2.9gm/dL Normal [id number] 1.3 - 4.7 [facility] A/G Ratio 1 Normal [id number] 1 - 3.8 [facility] Bili Total 2.1mg/dL Above high normal [id number] 0.2 - 1. 1 [facility] PTT 29.4sec Normal [id number] 22.2 - 35 [facility] PT 16.6sec Above high normal [id number] 12.2 - 14.8 [facility] INR 1.3 Above high normal [id number] 0.8 - 1.2 [facility] Fibrinogen 553mg/dL Above high normal [id number] 174 - 51 4 [facility] WBC 4.84k/uL Normal [id number] 4 - 10.8 [facility] RBC 2.36million/uL Below low normal 261469913523 4.2 - 5.5 [facility] Hgb 6.7gm/dL Below low normal 221306736356 12.5 - 16.5 [facility] Hct 20.5% Below low normal [id number] 37.5 - 49.5 [facility] MCV 86.9FL Normal [id number] 81 - 100 [facility] MCH 28.4pg Normal [id number] 27 - 31 [facility] MCHC 32.7gm/dL Normal [id number] 31 - 36 [facility] RDW 17% Above high normal [id number] 11.5 - 15.5 [facility] Platelet 56k/uL Below low normal [id number] 145 - 400 [facility] MPV 12.8FL Above high normal [id number] 7.5 - 10.4 [facility] NRBC auto 0/100wbcs Normal [id number] 0 - 2 [facility] NRBC Abs 0k/uL Normal [id number] 0 - 0.1 [facility] Neutro % 75.9% Above high normal [id number] 43 - 75 [facility] Neutro Absolute 3.7k/uL Normal [id number] 1.7 - 8.1 [facility] Imm Gran % 6.8% Above high normal [id number] 0.1 - 0. 3 [facility] Imm Gran Absolute 0.33k/uL Above high normal [id number] 2 0.01 - 0.03 [facility] Lymph % 7% Below low normal [id number] 15 - 45 [facility] Lymph Absolute 0.3k/uL Below low normal [id number] 0.6 - 4.9 [facility] [place] % 7.4% Normal [id number] 3 - 12 [facility] Monocyte Abs 0.4k/uL Normal 534455752306 0.1 - 1.3 [facility] Eos % 2.5% Normal [id number] 0 - 6 [facility] Eosinophil Abs 0.1k/uL Normal [id number] 0 - 0.7 [facility] Basophil % 0.4% Normal [id number] 0 - 2 [facility] Basophil Abs 0k/uL Normal 487402556056 0 - 0.2 [facility] Imm Platelet Comment See Comment Normal [id number] [facility] WBC 5.41k/uL Normal [id number] 4 - 10.8 [facility] RBC 2.54million/uL Below low normal 338684113918 4.2 - 5.5 [facility] Hgb 7.3gm/dL Below low normal 843469665339 12.5 - 16.5 [facility] Hct 22% Below low normal 689238200216 37.5 - 49.5 [facility] MCV 86.6FL Normal 622552153556 81 - 100 [facility] MCH 28.7pg Normal [id number] 27 - 31 [facility] MCHC 33.2gm/dL Normal [id number] 31 - 36 [facility] RDW 16.9% Above high normal [id number] 11.5 - 15.5 [facility] Platelet 47k/uL Below low normal 540856668066 145 - 400 [facility] Imm Platelet % 5.4% Normal [id number] 1.1 - 6.7 [facility] MPV 11.4FL Above high normal 286749523550 7.5 - 10.4 [facility] NRBC auto 0/100wbcs Normal [id number] 0 - 2 [facility] NRBC Abs 0k/uL Normal [id number] 0 - 0.1 [facility] GLUCOMETER 105mg/dL Normal [id number] 65 - 140 [facility] CMV DNA Quant PCR 167IU/mL Above high normal [id number] - [facility] GLUCOMETER 114mg/dL Normal [id number] 65 - 140 [facility] Testing Site Normal [id number] [facility] ABORh Int O POS Normal [facility] AbSc 2C Int Normal [id number] [facility] Ferritin Lvl 1896.5ng/mL Above high normal [id number] 10 .5 - 307.3 [facility] Haptoglobin 101mg/dL Normal 40 - 280 [facility] Iron Lvl 11mcg/dL Below low normal 775915186553 65 - 175 [facility] TIBC 132mcg/dL Below low normal 250 - 425 [facility] Iron Sat 8% Below low normal 20 - 55 [facility] LDH 294unit/L Above high normal 847104015727 120 - 246 [facility] Retic Cnt Auto 5.4% Above high normal 0.5 - 2 [facility] Retic Absolute 0.121million/uL Above high normal [id number] [id number] 0.02 - 0.1 [facility] Reticulated Hgb 25.2pg Below low normal 507061373298 3 0.3 - 38.5 [facility] Imm Retic % 18.9% Above high normal [id number] 2.2 - 15.7 [facility] GLUCOMETER 122mg/dL Normal [id number] 65 - 140 [facility] GLUCOMETER 106mg/dL Normal [id number] 65 - 140 [facility] WBC 5.72k/uL Normal [id number] 4 - 10.8 [facility] RBC 2.39million/uL Below low normal [id number] 4.2 - 5.5 [facility] Hgb 7gm/dL Below low normal 012838625852 12.5 - 16.5 [facility] Hct 20.9% Below low normal [id number] 37.5 - 49.5 [facility] MCV 87.4FL Normal [id number] 81 - 100 [facility] MCH 29.3pg Normal [id number] 27 - 31 [facility] MCHC 33.5gm/dL Normal [id number] 31 - 36 [facility] RDW 16.1% Above high normal [id number] 11.5 - 15.5 [facility] Platelet 51k/uL Below low normal [id number] 145 - 400 [facility] MPV 12.1FL Above high normal [id number] 7.5 - 10.4 [facility] NRBC auto 0/100wbcs Normal [id number] 0 - 2 [facility] NRBC Abs 0k/uL Normal [id number] 0 - 0.1 [facility] Neutro % 75.9% Above high normal [id number] 43 - 75 [facility] Neutro Absolute 4.3k/uL Normal [id number] 1.7 - 8.1 [facility] Imm Gran % 9.6% Above high normal [id number] 0.1 - 0. 3 [facility] Imm Gran Absolute 0.55k/uL Above high normal 14318461057 5 0.01 - 0.03 [facility] Lymph % 4.4% Below low normal [id number] 15 - 45 [facility] Lymph Absolute 0.2k/uL Below low normal [id number] 0.6 - 4.9 [facility] [place] % 7.2% Normal [id number] 3 - 12 [facility] Monocyte Abs 0.4k/uL Normal [id number] 0.1 - 1.3 [facility] Eos % 2.4% Normal [id number] 0 - 6 [facility] Eosinophil Abs 0.1k/uL Normal [id number] 0 - 0.7 [facility] Basophil % 0.5% Normal [id number] 0 - 2 [facility] Basophil Abs 0k/uL Normal [id number] 0 - 0.2 [facility] Tacrolimus Lvl 6.6ng/mL Normal [id number] 5 - 19 [facility] G[facility] [place] 113mL/min/1.73m2 Normal [id number] - [facility] Sodium Lvl 127mmol/L Below low normal 527130276896 136 - 145 [facility] Potassium Lvl 5mmol/L Above high normal 603197234144 3.4 - 4.5 [facility] Chloride 96mmol/L Below low normal 467951808744 98 - 107 [facility] CO2 24mmol/L Normal [id number] 20 - 31 [facility] AGAP 7mmol/L Normal [id number] 5 - 15 [facility] Glucose Lvl Random 99mg/dL Normal [id number] 65 - 140 [facility] BUN 15mg/dL Normal [id number] 9 - 23 [facility] Creatinine 0.53mg/dL Below low normal 842435544611 0.6 - 1.1 [facility] Calcium Lvl 8.4mg/dL Below low normal [id number] 8.7 - 10.4 [facility] Alk Phos 90unit/L Normal 726088316089 46 - 116 [facility] AST 35unit/L Above high normal [id number] 0 - 33 [facility] ALT 35unit/L Normal [id number] 10 - 49 [facility] Total Protein 6gm/dL Normal [id number] 5.7 - 8.2 [facility] Albumin Lvl 3.2gm/dL Normal [id number] 3.2 - 4.8 [facility] Globulin 2.8gm/dL Normal [id number] 1.3 - 4.7 [facility] A/G Ratio 1.1 Normal [id number] 1 - 3.8 [facility] Bili Total 2.7mg/dL Above high normal 525113593160 0.2 - 1. 1 [facility] Phosphorus Lvl 2.1mg/dL Below low normal [id number] 2.4 - 5.1 [facility] Bili Direct 1.7mg/dL Above high normal 882058581363 0 - 0.3 [facility] Magnesium Lvl 1.4mg/dL Below low normal 750323941182 1.6 - 2.6 [facility] Fibrinogen 563mg/dL Above high normal 039764612297 174 - 51 4 [facility] PT 17.5sec Above high normal [id number] 12.2 - 14.8 [facility] INR 1.4 Above high normal [id number] 0.8 - 1.2 [facility] PTT 29.8sec Normal [id number] 22.2 - 35 [facility] Trypanosoma Cruzi Ab IgG 0.5IV Normal 857573836731 - [facility] GLUCOMETER 145mg/dL Above high normal 633965147049 65 - 140 [facility] GLUCOMETER 129mg/dL Normal [id number] 65 - 140 [facility] GLUCOMETER 153mg/dL Above high normal 983031878937 65 - 140 [facility] GLUCOMETER 148mg/dL Above high normal [id number] 65 - 140 [facility] GLUCOMETER 121mg/dL Normal [id number] 65 - 140 [facility] Tacrolimus Lvl 7.2ng/mL Normal 680444515490 5 - 19 [facility] G[facility] [place] 111mL/min/1.73m2 Normal [id number] - [facility] Sodium Lvl 127mmol/L Below low normal [id number] 136 - 145 [facility] Potassium Lvl 5.1mmol/L Above high normal 122480452968 3.4 - 4.5 [facility] Chloride 97mmol/L Below low normal 305898036781 98 - 107 [facility] CO2 24mmol/L Normal [id number] 20 - 31 [facility] AGAP 6mmol/L Normal [id number] 5 - 15 [facility] Glucose Lvl Random 108mg/dL Normal 873968101631 65 - 140 [facility] BUN 17mg/dL Normal [id number] 9 - 23 [facility] Creatinine 0.57mg/dL Below low normal 176951422218 0.6 - 1.1 [facility] Calcium Lvl 8mg/dL Below low normal 799775890762 8.7 - 10.4 [facility] Alk Phos 106unit/L Normal 46 - 116 [facility] AST 45unit/L Above high normal 206675107617 0 - 33 [facility] ALT 60unit/L Above high normal 399180299251 10 - 49 [facility] Total Protein 5.9gm/dL Normal [id number] 5.7 - 8.2 [facility] Albumin Lvl 3gm/dL Below low normal 590440768780 3.2 - 4. 8 [facility] Globulin 2.9gm/dL Normal [id number] 1.3 - 4.7 [facility] A/G Ratio 1 Normal 1 - 3.8 [facility] Bili Total 2.6mg/dL Above high normal 253672892957 0.2 - 1. 1 [facility] Magnesium Lvl 1.8mg/dL Normal 1.6 - 2.6 [facility] Phosphorus Lvl 1.9mg/dL Below low normal 409090345775 2.4 - 5.1 [facility] Bili Direct 1.5mg/dL Above high normal 061588841257 0 - 0.3 [facility] Fibrinogen 571mg/dL Above high normal 406051626269 174 - 51 4 [facility] PT 16.5sec Above high normal 605214456578 12.2 - 14.8 [facility] INR 1.3 Above high normal [id number] 0.8 - 1.2 [facility] PTT 26.3sec Normal 405773458665 22.2 - 35 [facility] WBC 5.84k/uL Normal [id number] 4 - 10.8 [facility] RBC 2.96million/uL Below low normal [id number] 4.2 - 5.5 [facility] Hgb 8.8gm/dL Below low normal 640042196191 12.5 - 16.5 [facility] Hct 26.1% Below low normal 174618675624 37.5 - 49.5 [facility] MCV 88.2FL Normal 626372691022 81 - 100 [facility] MCH 29.7pg Normal [id number] 27 - 31 [facility] MCHC 33.7gm/dL Normal [id number] 31 - 36 [facility] RDW 16.4% Above high normal [id number] 11.5 - 15.5 [facility] Platelet 58k/uL Below low normal [id number] 145 - 400 [facility] MPV 12.1FL Above high normal 765014465244 7.5 - 10.4 [facility] NRBC auto 0/100wbcs Normal [id number] 0 - 2 [facility] NRBC Abs 0k/uL Normal 928085851689 0 - 0.1 [facility] Neutro % 75.2% Above high normal 808784654750 43 - 75 [facility] Neutro Absolute 4.4k/uL Normal 699430212848 1.7 - 8.1 [facility] Imm Gran % 7.2% Above high normal 203289468911 0.1 - 0. 3 [facility] Imm Gran Absolute 0.42k/uL Above high normal 15998500793 6 0.01 - 0.03 [facility] Lymph % 5.8% Below low normal 529130786717 15 - 45 [facility] Lymph Absolute 0.3k/uL Below low normal 248393363082 0.6 - 4.9 [facility] [place] % 8% Normal 946501206644 3 - 12 [facility] Monocyte Abs 0.5k/uL Normal [id number] 0.1 - 1.3 [facility] Eos % 3.1% Normal [id number] 0 - 6 [facility] Eosinophil Abs 0.2k/uL Normal 518256836624 0 - 0.7 [facility] Basophil % 0.7% Normal 615133905691 0 - 2 [facility] Basophil Abs 0k/uL Normal 269242675332 0 - 0.2 [facility] GLUCOMETER 173mg/dL Above high normal 257383792847 65 - 140 [facility] Lactic Acid Lvl 2mmol/L Normal 0.5 - 2.2 [facility] GLUCOMETER 160mg/dL Above high normal 745531873448 65 - 140 [facility] GLUCOMETER 149mg/dL Above high normal 933200816433 65 - 140 [facility] GLUCOMETER 107mg/dL Normal 971278972742 65 - 140 [facility] Tacrolimus Lvl 8.6ng/mL Normal 470821034725 5 - 19 [facility] WBC 3.35k/uL Below low normal 663455217780 4 - 10.8 [facility] RBC 2.64million/uL Below low normal 843094523436 4.2 - 5.5 [facility] Hgb 7.8gm/dL Below low normal 773412685846 12.5 - 16.5 [facility] Hct 23.2% Below low normal 575460657803 37.5 - 49.5 [facility] MCV 87.9FL Normal 975447789521 81 - 100 [facility] MCH 29.5pg Normal [id number] 27 - 31 [facility] MCHC 33.6gm/dL Normal [id number] 31 - 36 [facility] RDW 16% Above high normal 998560233770 11.5 - 15.5 [facility] Platelet 55k/uL Below low normal 570253975479 145 - 400 [facility] MPV 13.2FL Above high normal 798240145464 7.5 - 10.4 [facility] NRBC auto 0/100wbcs Normal 497639948502 0 - 2 [facility] NRBC Abs 0k/uL Normal 416079683785 0 - 0.1 [facility] Neutro % 68.1% Normal [id number] 43 - 75 [facility] Neutro Absolute 2.3k/uL Normal 308415550149 1.7 - 8.1 [facility] Imm Gran % 7.5% Above high normal 004996991751 0.1 - 0. 3 [facility] Imm Gran Absolute 0.25k/uL Above high normal 31805268860 8 0.01 - 0.03 [facility] Lymph % 10.4% Below low normal 15 - 45 [facility] Lymph Absolute 0.4k/uL Below low normal 373156142832 0.6 - 4.9 [facility] [place] % 10.1% Normal 460394986509 3 - 12 [facility] Monocyte Abs 0.3k/uL Normal [id number] 0.1 - 1.3 [facility] Eos % 3.6% Normal [id number] 0 - 6 [facility] Eosinophil Abs 0.1k/uL Normal 110859008057 0 - 0.7 [facility] Basophil % 0.3% Normal 564513803798 0 - 2 [facility] Basophil Abs 0k/uL Normal 0 - 0.2 [facility] GFR [facility] [place] 110mL/min/1.73m2 Normal 465966358508 - [facility] Phosphorus Lvl 2.6mg/dL Normal 349970223233 2.4 - 5.1 [facility] Sodium Lvl 129mmol/L Below low normal 158768206945 136 - 145 [facility] Potassium Lvl 4.8mmol/L Above high normal 575966305534 3.4 - 4.5 [facility] Chloride 99mmol/L Normal 259932532116 98 - 107 [facility] CO2 25mmol/L Normal 617837272680 20 - 31 [facility] AGAP 5mmol/L Normal [id number] 5 - 15 [facility] Glucose Lvl Random 110mg/dL Normal 144909245181 65 - 140 [facility] BUN 14mg/dL Normal 505307147931 9 - 23 [facility] Creatinine 0.59mg/dL Below low normal 852640530825 0.6 - 1.1 [facility] Calcium Lvl 8mg/dL Below low normal 060858706256 8.7 - 10.4 [facility] Alk Phos 107unit/L Normal 497630997157 46 - 116 [facility] AST 63unit/L Above high normal 882760258028 0 - 33 [facility] ALT 61unit/L Above high normal 502248430302 10 - 49 [facility] Total Protein 5.5gm/dL Below low normal 618052492879 5.7 - 8.2 [facility] Albumin Lvl 2.8gm/dL Below low normal 137981908158 3.2 - 4. 8 [facility] Globulin 2.7gm/dL Normal 1.3 - 4.7 [facility] A/G Ratio 1 Normal 1 - 3.8 [facility] Bili Total 2.4mg/dL Above high normal 814106519138 0.2 - 1. 1 [facility] Magnesium Lvl 1.4mg/dL Below low normal 1.6 - 2.6 [facility] Bili Direct 1.6mg/dL Above high normal 539451053662 0 - 0.3 [facility] PTT 25.9sec Normal 005399338919 22.2 - 35 [facility] PT 16.5sec Above high normal 213455464940 12.2 - 14.8 [facility] INR 1.3 Above high normal 600951109965 0.8 - 1.2 [facility] PT 16.5sec Above high normal 768498591508 12.2 - 14.8 [facility] INR 1.3 Above high normal 842312102811 0.8 - 1.2 [facility] PTT 26.9sec Normal 22.2 - 35 [facility] Fibrinogen 457mg/dL Normal 174 - 514 [facility] GLUCOMETER 121mg/dL Normal 65 - 140 [facility] GLUCOMETER 128mg/dL Normal 65 - 140 [facility] GLUCOMETER 102mg/dL Normal 65 - 140 [facility] GLUCOMETER 120mg/dL Normal [id number] 65 - 140 [facility] AbSc 2C Int Normal [id number] [facility] Testing Site Normal 134739809789 [facility] ABORh Int O POS Normal [id number] [facility] GLUCOMETER 106mg/dL Normal 219114819099 65 - 140 [facility] GLUCOMETER 105mg/dL Normal 719029425728 65 - 140 [facility] Segs Man 72% Normal [id number] 43 - 75 [facility] Band Man 4% Normal 043228109148 0 - 10 [facility] Lymph Man 9% Below low normal 772186029822 15 - 45 [facility] Monocyte Man 5% Normal [id number] 3 - 12 [facility] Eos Man 2% Normal 601800502151 0 - 6 [facility] Basophil Man 5% Above high normal 290196839121 0 - 2 [facility] [place] Man 1% Normal [id number] 0 - 1 [facility] Myelo Man 1% Normal 958899272638 0 - 1 [facility] NRBC Man 1/100wbcs Normal 590565408790 0 - 2 [facility] Neut Abs Count 2.5k/uL Normal [id number] 1.7 - 8.1 [facility] Anisocyte Abnormal [id number] [facility] Polychrom Abnormal 991058052949 [facility] RBC Morph Normal 279539171937 - [facility] Platelet Est Abnormal 522199777152 - [facility] Macrocyte Abnormal 311870577311 [facility] Tacrolimus Lvl 7.3ng/mL Normal 246441360824 5 - 19 [facility] GFR [facility] [place] 114mL/min/1.73m2 Normal 710565867841 - [facility] Sodium Lvl 127mmol/L Below low normal 744243625817 136 - 145 [facility] Potassium Lvl 4.6mmol/L Above high normal 858389431564 3.4 - 4.5 [facility] Chloride 97mmol/L Below low normal 038045766164 98 - 107 [facility] CO2 25mmol/L Normal [id number] 20 - 31 [facility] AGAP 5mmol/L Normal 563517570352 5 - 15 [facility] Glucose Lvl Random 102mg/dL Normal 079081481010 65 - 140 [facility] BUN 11mg/dL Normal 411258203015 9 - 23 [facility] Creatinine 0.52mg/dL Below low normal 487617290332 0.6 - 1.1 [facility] Calcium Lvl 8mg/dL Below low normal 328615945302 8.7 - 10.4 [facility] Alk Phos 87unit/L Normal 840614911960 46 - 116 [facility] AST 43unit/L Above high normal 790604397985 0 - 33 [facility] ALT 51unit/L Above high normal 441505297069 10 - 49 [facility] Total Protein 5.5gm/dL Below low normal 616448486769 5.7 - 8.2 [facility] Albumin Lvl 2.7gm/dL Below low normal [id number] 3.2 - 4. 8 [facility] Globulin 2.8gm/dL Normal [id number] 1.3 - 4.7 [facility] A/G Ratio 1 Normal [id number] 1 - 3.8 [facility] Bili Total 2.3mg/dL Above high normal [id number] 0.2 - 1. 1 [facility] Bili Direct 1.6mg/dL Above high normal [id number] 0 - 0.3 [facility] Phosphorus Lvl 2.6mg/dL Normal [id number] 2.4 - 5.1 [facility] Magnesium Lvl 1.7mg/dL Normal [id number] 1.6 - 2.6 [facility] PT 17sec Above high normal [id number] 12.2 - 14.8 [facility] INR 1.4 Above high normal 851778676600 0.8 - 1.2 [facility] PTT 27.1sec Normal [id number] 22.2 - 35 [facility] Fibrinogen 451mg/dL Normal [id number] 174 - 514 [facility] Imm Platelet Comment See Comment Normal [id number] [facility] WBC 3.35k/uL Below low normal [id number] 4 - 10.8 [facility] RBC 2.25million/uL Below low normal [id number] 4.2 - 5.5 [facility] Hgb 6.7gm/dL Below low normal 577970697737 12.5 - 16.5 [facility] Hct 20.2% Below low normal [id number] 37.5 - 49.5 [facility] MCV 89.8FL Normal [id number] 81 - 100 [facility] MCH 29.8pg Normal [id number] 27 - 31 [facility] MCHC 33.2gm/dL Normal [id number] 31 - 36 [facility] RDW 16.2% Above high normal [id number] 11.5 - 15.5 [facility] Platelet 46k/uL Below low normal 943487773497 145 - 400 [facility] Imm Platelet % 4.3% Normal [id number] 1.1 - 6.7 [facility] MPV 11.8FL Above high normal [id number] 7.5 - 10.4 [facility] NRBC auto 0/100wbcs Normal [id number] 0 - 2 [facility] NRBC Abs 0k/uL Normal [id number] 0 - 0.1 [facility] Neutro % 65.6% Normal [id number] 43 - 75 [facility] Neutro Absolute 2.2k/uL Normal [id number] 1.7 - 8.1 [facility] Imm Gran % 10.7% Above high normal [id number] 0.1 - 0. 3 [facility] Imm Gran Absolute 0.36k/uL Above high normal 41953944850 0 0.01 - 0.03 [facility] Lymph % 9% Below low normal [id number] 15 - 45 [facility] Lymph Absolute 0.3k/uL Below low normal [id number] 0.6 - 4.9 [facility] [place] % 9% Normal [id number] 3 - 12 [facility] Monocyte Abs 0.3k/uL Normal [id number] 0.1 - 1.3 [facility] Eos % 5.1% Normal [id number] 0 - 6 [facility] Eosinophil Abs 0.2k/uL Normal [id number] 0 - 0.7 [facility] Basophil % 0.6% Normal [id number] 0 - 2 [facility] Basophil Abs 0k/uL Normal [id number] 0 - 0.2 [facility] GLUCOMETER 117mg/dL Normal [id number] 65 - 140 [facility] GFR Center [place] 110mL/min/1.73m2 Normal [id number] - [facility] Sodium Lvl 127mmol/L Below low normal 673271893159 136 - 145 [facility] Potassium Lvl 4.9mmol/L Above high normal 507079149985 3.4 - 4.5 [facility] Chloride 98mmol/L Normal 98 - 107 [facility] CO2 26mmol/L Normal [id number] 20 - 31 [facility] AGAP 3mmol/L Below low normal [id number] 5 - 15 [facility] Glucose Lvl Random 115mg/dL Normal [id number] 65 - 140 [facility] BUN 13mg/dL Normal [id number] 9 - 23 [facility] Creatinine 0.58mg/dL Below low normal [id number] 0.6 - 1.1 [facility] Calcium Lvl 8mg/dL Below low normal 067536848565 8.7 - 10.4 [facility] Alk Phos 90unit/L Normal 120541945434 46 - 116 [facility] AST 45unit/L Above high normal 837396490897 0 - 33 [facility] ALT 51unit/L Above high normal 864976040384 10 - 49 [facility] Total Protein 5.5gm/dL Below low normal 132059503264 5.7 - 8.2 [facility] Albumin Lvl 2.7gm/dL Below low normal [id number] 3.2 - 4. 8 [facility] Globulin 2.8gm/dL Normal [id number] 1.3 - 4.7 [facility] A/G Ratio 1 Normal 519522271576 1 - 3.8 [facility] Bili Total 2.4mg/dL Above high normal 697153219011 0.2 - 1. 1 [facility] Magnesium Lvl 1mg/dL Below low normal 554028520113 1.6 - 2.6 [facility] Phosphorus Lvl 1.3mg/dL Below low normal 996342387301 2.4 - 5.1 [facility] GLUCOMETER 109mg/dL Normal [id number] 65 - 140 [facility] Lactic Acid Lvl 1.9mmol/L Normal 317409851853 0.5 - 2.2 [facility] GLUCOMETER 112mg/dL Normal 792132764988 65 - 140 [facility] Segs Man 85% Above high normal 042791888660 43 - 75 [facility] Lymph Man 4% Below low normal [id number] 15 - 45 [facility] Monocyte Man 5% Normal 178659854572 3 - 12 [facility] Eos Man 2% Normal 582114898954 0 - 6 [facility] Basophil Man 5% Above high normal [id number] 0 - 2 [facility] Neut Abs Count 2.7k/uL Normal 257657065108 1.7 - 8.1 [facility] Anisocyte Abnormal 031688083479 [facility] Platelet Morph Abnormal 693907725911 [facility] Polychrom Abnormal [id number] [facility] RBC Morph Normal 536090787501 - [facility] Platelet Est Abnormal 450683118712 - [facility] Ovalocytes Abnormal 154095741293 [facility] Poik Abnormal 693702951595 [facility] Tear Cell Abnormal 861348237532 [facility] Macrocyte Abnormal 536439944024 [facility] GLUCOMETER 91mg/dL Normal [id number] 65 - 140 [facility] Tacrolimus Lvl 6.4ng/mL Normal 312446475123 5 - 19 [facility] Magnesium Lvl 1.1mg/dL Below low normal 325973248301 1.6 - 2.6 [facility] Phosphorus Lvl 1.7mg/dL Below low normal 757198734728 2.4 - 5.1 [facility] Fibrinogen 494mg/dL Normal 701948696923 174 - 514 [facility] PTT 25.6sec Normal 834785162862 22.2 - 35 [facility] PT 16.2sec Above high normal 567595812476 12.2 - 14.8 [facility] INR 1.3 Above high normal 439663914886 0.8 - 1.2 [facility] WBC 3.14k/uL Below low normal 081041592650 4 - 10.8 [facility] RBC 2.42million/uL Below low normal 458015838004 4.2 - 5.5 [facility] Hgb 7.1gm/dL Below low normal 421779434987 12.5 - 16.5 [facility] Hct 21.4% Below low normal 467420206240 37.5 - 49.5 [facility] MCV 88.4FL Normal 605167608707 81 - 100 [facility] MCH 29.3pg Normal 553184186517 27 - 31 [facility] MCHC 33.2gm/dL Normal [id number] 31 - 36 [facility] RDW 15.7% Above high normal [id number] 11.5 - 15.5 [facility] Platelet 48k/uL Below low normal 259525309861 145 - 400 [facility] MPV 11.3FL Above high normal 817500602258 7.5 - 10.4 [facility] NRBC auto 0/100wbcs Normal [id number] 0 - 2 [facility] NRBC Abs 0k/uL Normal [id number] 0 - 0.1 [facility] Neutro % 66.3% Normal [id number] 43 - 75 [facility] Neutro Absolute 2.1k/uL Normal [id number] 1.7 - 8.1 [facility] Imm Gran % 9.2% Above high normal 463267190373 0.1 - 0. 3 [facility] Imm Gran Absolute 0.29k/uL Above high normal 25350925749 5 0.01 - 0.03 [facility] Lymph % 10.2% Below low normal 843995574913 15 - 45 [facility] Lymph Absolute 0.3k/uL Below low normal 544609433856 0.6 - 4.9 [facility] [place] % 7.6% Normal [id number] 3 - 12 [facility] Monocyte Abs 0.2k/uL Normal [id number] 0.1 - 1.3 [facility] Eos % 6.4% Above high normal 629315780779 0 - 6 [facility] Eosinophil Abs 0.2k/uL Normal 888469105115 0 - 0.7 [facility] Basophil % 0.3% Normal [id number] 0 - 2 [facility] Basophil Abs 0k/uL Normal 035022748751 0 - 0.2 [facility] GLUCOMETER 123mg/dL Normal [id number] 65 - 140 [facility] GLUCOMETER 110mg/dL Normal [id number] 65 - 140 [facility] GLUCOMETER 119mg/dL Normal 763804331486 65 - 140 [facility] GLUCOMETER 105mg/dL Normal 543458856204 65 - 140 [facility] Total Bili BF 53.7mg/dL Normal 341644275615 [facility] Direct Bili BF >22.50 Normal 516683095108 [facility] Indirec Bili BF <31.2 Normal 637948136881 [facility] Bili BF Type Normal 765288353401 [facility] Bili BF Type Normal [id number] [facility] Total Bili BF 3.1mg/dL Normal 266022999078 [facility] Direct Bili BF 1.93mg/dL Normal 681089461200 [facility] Indirec Bili BF 1.2mg/dL Normal 868935179853 [facility] Total Bili BF 2.6mg/dL Normal [facility] Direct Bili BF 1.77mg/dL Normal [facility] Indirec Bili BF 0.8mg/dL Normal 093004485099 [facility] GLUCOMETER 137mg/dL Normal [id number] 65 - 140 [facility] CMV DNA Quant PCR 244IU/mL Above high normal 640894335978 - [facility] GLUCOMETER 115mg/dL Normal 295319053063 65 - 140 [facility] GLUCOMETER 133mg/dL Normal [id number] 65 - 140 [facility] Lactic Acid Lvl 1.1mmol/L Normal [id number] 0.5 - 2.2 [facility] AbSc 2C Int Normal [id number] [facility] Testing Site Normal 415732453713 [facility] ABORh Int O POS Normal [id number] [facility] GLUCOMETER 107mg/dL Normal [id number] 65 - 140 [facility] Segs Man 71% Normal [id number] 43 - 75 [facility] Band Man 4% Normal 457494548028 0 - 10 [facility] Lymph Man 7% Below low normal 837526635964 15 - 45 [facility] Monocyte Man 7% Normal [id number] 3 - 12 [facility] Eos Man 10% Above high normal 157538812470 0 - 6 [facility] Basophil Man 2% Normal [id number] 0 - 2 [facility] Neut Abs Count 2.1k/uL Normal [id number] 1.7 - 8.1 [facility] Anisocyte Abnormal 714583228494 [facility] Polychrom Abnormal 918039056315 [facility] RBC Morph Normal 643728410767 - [facility] Platelet Est Abnormal 814745418068 - [facility] Ovalocytes Abnormal 882387860407 [facility] Macrocyte Abnormal 713103114900 [facility] Toxic Vacuoles Abnormal 245760242144 [facility] Tacrolimus Lvl 5.9ng/mL Normal 843390099665 5 - 19 [facility] Imm Platelet Comment See Comment Normal [facility] WBC 2.85k/uL Below low normal 264028846742 4 - 10.8 [facility] RBC 2.25million/uL Below low normal 126365677555 4.2 - 5.5 [facility] Hgb 6.6gm/dL Below low normal 360465897617 12.5 - 16.5 [facility] Hct 20.1% Below low normal [id number] 37.5 - 49.5 [facility] MCV 89.3FL Normal 81 - 100 [facility] MCH 29.3pg Normal 27 - 31 [facility] MCHC 32.8gm/dL Normal 31 - 36 [facility] RDW 15.9% Above high normal 11.5 - 15.5 [facility] Platelet 41k/uL Below low normal [id number] 145 - 400 [facility] Imm Platelet % 5% Normal 1.1 - 6.7 [facility] MPV 10.8FL Above high normal 7.5 - 10.4 [facility] NRBC auto 1/100wbcs Normal 0 - 2 [facility] NRBC Abs 0k/uL Normal 0 - 0.1 [facility] Neutro % 64.8% Normal 43 - 75 [facility] Neutro Absolute 1.8k/uL Normal [id number] 1.7 - 8.1 [facility] Imm Gran % 10.2% Above high normal 884998237560 0.1 - 0. 3 [facility] Imm Gran Absolute 0.29k/uL Above high normal 24219329687 8 0.01 - 0.03 [facility] Lymph % 9.5% Below low normal 592491365957 15 - 45 [facility] Lymph Absolute 0.3k/uL Below low normal [id number] 0.6 - 4.9 [facility] [place] % 6.3% Normal 3 - 12 [facility] Monocyte Abs 0.2k/uL Normal 0.1 - 1.3 [facility] Eos % 8.1% Above high normal [id number] 0 - 6 [facility] Eosinophil Abs 0.2k/uL Normal 0 - 0.7 [facility] Basophil % 1.1% Normal 0 - 2 [facility] Basophil Abs 0k/uL Normal 0 - 0.2 [facility] GFR Center [place] 101mL/min/1.73m2 Normal - [facility] Phosphorus Lvl 2.4mg/dL Normal 2.4 - 5.1 [facility] Magnesium Lvl 1.4mg/dL Below low normal 1.6 - 2.6 [facility] Sodium Lvl 130mmol/L Below low normal 136 - 145 [facility] Potassium Lvl 5.3mmol/L Above high normal 3.4 - 4.5 [facility] Chloride 101mmol/L Normal 98 - 107 [facility] CO2 23mmol/L Normal 20 - 31 [facility] AGAP 6mmol/L Normal 5 - 15 [facility] Glucose Lvl Random 104mg/dL Normal 65 - 140 [facility] BUN 21mg/dL Normal 9 - 23 [facility] Creatinine 0.77mg/dL Normal 0.6 - 1.1 [facility] Calcium Lvl 8.3mg/dL Below low normal 8.7 - 10.4 [facility] Alk Phos 88unit/L Normal 46 - 116 [facility] AST 41unit/L Above high normal 0 - 33 [facility] ALT 58unit/L Above high normal 275837066899 10 - 49 [facility] Total Protein 5.3gm/dL Below low normal 509102305202 5.7 - 8.2 [facility] Albumin Lvl 2.7gm/dL Below low normal 860748530374 3.2 - 4. 8 [facility] Globulin 2.6gm/dL Normal [id number] 1.3 - 4.7 [facility] A/G Ratio 1 Normal [id number] 1 - 3.8 [facility] Bili Total 3.7mg/dL Above high normal [id number] 0.2 - 1. 1 [facility] Bili Direct 2.9mg/dL Above high normal [id number] 0 - 0.3 [facility] Vancomycin Rn 9.2mcg/mL Below low normal 005859622777 10 - 4 0 [facility] Fibrinogen 604mg/dL Above high normal 891437337870 174 - 51 4 [facility] PTT 25.7sec Normal 831104699259 22.2 - 35 [facility] PT 16.5sec Above high normal 559345257434 12.2 - 14.8 [facility] INR 1.3 Above high normal 831861704157 0.8 - 1.2 [facility] GLUCOMETER 106mg/dL Normal [id number] 65 - 140 [facility] GLUCOMETER 116mg/dL Normal [id number] 65 - 140 [facility] GLUCOMETER 110mg/dL Normal [id number] 65 - 140 [facility] GLUCOMETER 109mg/dL Normal [id number] 65 - 140 [facility] GLUCOMETER 117mg/dL Normal [id number] 65 - 140 [facility] GLUCOMETER 116mg/dL Normal [id number] 65 - 140 [facility] GLUCOMETER 143mg/dL Above high normal [id number] 65 - 140 [facility] GLUCOMETER 123mg/dL Normal [id number] 65 - 140 [facility] Segs Man 79% Above high normal [id number] 43 - 75 [facility] Lymph Man 7% Below low normal [id number] 15 - 45 [facility] Monocyte Man 8% Normal [id number] 3 - 12 [facility] Eos Man 2% Normal [id number] 0 - 6 [facility] Basophil Man 0% Normal 668990457955 0 - 2 [facility] [place] Man 3% Above high normal 710745576584 0 - 1 [facility] Blasts Man 1% Above high normal [id number] 0 - 0 [facility] Atyp Lymph Man 1% Normal [id number] 0 - 5 [facility] Neut Abs Count 3.2k/uL Normal [id number] 1.7 - 8.1 [facility] Anisocyte Abnormal 388223282989 [facility] Platelet Morph Abnormal 185241398651 [facility] Polychrom Abnormal 593471983515 [facility] RBC Morph Normal 272257530181 - [facility] Platelet Est Abnormal 303445440433 - [facility] Ovalocytes Abnormal 705790374573 [facility] Poik Abnormal 767481823327 [facility] Microcyte Abnormal 500527481656 [facility] [place] Cells Abnormal 912188739632 [facility] Tacrolimus Lvl 11.6ng/mL Normal 798613261503 5 - 19 [facility] GFR Center [place] 98mL/min/1.73m2 Normal [id number] - [facility] Sodium Lvl 130mmol/L Below low normal 775740778253 136 - 145 [facility] Potassium Lvl 5.1mmol/L Above high normal 111662109839 3.4 - 4.5 [facility] Chloride 105mmol/L Normal [id number] 98 - 107 [facility] CO2 21mmol/L Normal [id number] 20 - 31 [facility] AGAP 4mmol/L Below low normal [id number] 5 - 15 [facility] Glucose Lvl Random 133mg/dL Normal 655142983968 65 - 140 [facility] BUN 19mg/dL Normal [id number] 9 - 23 [facility] Creatinine 0.86mg/dL Normal 581085094062 0.6 - 1.1 [facility] Calcium Lvl 8mg/dL Below low normal 867960416251 8.7 - 10.4 [facility] Alk Phos 75unit/L Normal [id number] 46 - 116 [facility] AST 34unit/L Above high normal [id number] 0 - 33 [facility] ALT 52unit/L Above high normal 621877944296 10 - 49 [facility] Total Protein 4.9gm/dL Below low normal 671507689776 5.7 - 8.2 [facility] Albumin Lvl 2.6gm/dL Below low normal 562020937723 3.2 - 4. 8 [facility] Globulin 2.3gm/dL Normal 569057454417 1.3 - 4.7 [facility] A/G Ratio 1.1 Normal [id number] 1 - 3.8 [facility] Bili Total 5.1mg/dL Above high normal [id number] 0.2 - 1. 1 [facility] Magnesium Lvl 1.7mg/dL Normal 792939316753 1.6 - 2.6 [facility] Bili Direct 4.1mg/dL Above high normal 409155575026 0 - 0.3 [facility] Phosphorus Lvl 4mg/dL Normal [id number] 2.4 - 5.1 [facility] Imm Platelet Comment See Comment Normal [id number] [facility] WBC 4.03k/uL Normal [id number] 4 - 10.8 [facility] RBC 2.89million/uL Below low normal [id number] 4.2 - 5.5 [facility] Hgb 8.5gm/dL Below low normal 303919859705 12.5 - 16.5 [facility] Hct 25.6% Below low normal 060207729121 37.5 - 49.5 [facility] MCV 88.6FL Normal [id number] 81 - 100 [facility] MCH 29.4pg Normal [id number] 27 - 31 [facility] MCHC 33.2gm/dL Normal [id number] 31 - 36 [facility] RDW 15.8% Above high normal [id number] 11.5 - 15.5 [facility] Platelet 40k/uL Below low normal 821086151523 145 - 400 [facility] Imm Platelet % 3.9% Normal [id number] 1.1 - 6.7 [facility] MPV 12.4FL Above high normal 024204828582 7.5 - 10.4 [facility] NRBC auto 0/100wbcs Normal [id number] 0 - 2 [facility] NRBC Abs 0k/uL Normal [id number] 0 - 0.1 [facility] Neutro % 67.3% Normal [id number] 43 - 75 [facility] Neutro Absolute 2.7k/uL Normal [id number] 1.7 - 8.1 [facility] Imm Gran % 7.9% Above high normal 999105780916 0.1 - 0. 3 [facility] Imm Gran Absolute 0.32k/uL Above high normal 11921554898 1 0.01 - 0.03 [facility] Lymph % 9.2% Below low normal 765613352062 15 - 45 [facility] Lymph Absolute 0.4k/uL Below low normal [id number] 0.6 - 4.9 [facility] [place] % 9.2% Normal [id number] 3 - 12 [facility] Monocyte Abs 0.4k/uL Normal [id number] 0.1 - 1.3 [facility] Eos % 5.7% Normal [id number] 0 - 6 [facility] Eosinophil Abs 0.2k/uL Normal [id number] 0 - 0.7 [facility] Basophil % 0.7% Normal [id number] 0 - 2 [facility] Basophil Abs 0k/uL Normal 667384154615 0 - 0.2 [facility] PT 17sec Above high normal 202609302520 12.2 - 14.8 [facility] INR 1.4 Above high normal [id number] 0.8 - 1.2 [facility] PTT 26.4sec Normal 202636309744 22.2 - 35 [facility] Fibrinogen 526mg/dL Above high normal 354143201628 174 - 51 4 [facility] GLUCOMETER 148mg/dL Above high normal 824736998591 65 - 140 [facility] GLUCOMETER 139mg/dL Normal 65 - 140 [facility] GLUCOMETER 129mg/dL Normal 65 - 140 [facility] GLUCOMETER 134mg/dL Normal 65 - 140 [facility] GFR [facility] [place] 105mL/min/1.73m2 Normal - [facility] Alk Phos 70unit/L Normal 46 - 116 [facility] AST 22unit/L Normal 0 - 33 [facility] ALT 44unit/L Normal 10 - 49 [facility] Total Protein 4.8gm/dL Below low normal 551452359163 5.7 - 8.2 [facility] Albumin Lvl 2.7gm/dL Below low normal 035975033788 3.2 - 4. 8 [facility] Globulin 2.1gm/dL Normal 1.3 - 4.7 [facility] A/G Ratio 1.3 Normal 1 - 3.8 [facility] Bili Total 4.8mg/dL Above high normal [id number] 0.2 - 1. 1 [facility] Bili Direct 3.8mg/dL Above high normal 067436588553 0 - 0.3 [facility] Sodium Lvl 130mmol/L Below low normal 151545645973 136 - 145 [facility] Potassium Lvl 4.5mmol/L Normal 3.4 - 4.5 [facility] Chloride 105mmol/L Normal 172420957593 98 - 107 [facility] CO2 20mmol/L Normal [id number] 20 - 31 [facility] AGAP 5mmol/L Normal 754492388897 5 - 15 [facility] Glucose Lvl Random 122mg/dL Normal [id number] 65 - 140 [facility] BUN 12mg/dL Normal [id number] 9 - 23 [facility] Creatinine 0.69mg/dL Normal 921343315921 0.6 - 1.1 [facility] Calcium Lvl 7.9mg/dL Below low normal 178654748219 8.7 - 10.4 [facility] Tacrolimus Lvl 7ng/mL Normal 943070753093 5 - 19 [facility] Magnesium Lvl 1.4mg/dL Below low normal 469325917446 1.6 - 2.6 [facility] Phosphorus Lvl 2.7mg/dL Normal 040470549062 2.4 - 5.1 [facility] PTT 28.1sec Normal 072749598731 22.2 - 35 [facility] PT 18.3sec Above high normal 093445013607 12.2 - 14.8 [facility] INR 1.5 Above high normal 487082427597 0.8 - 1.2 [facility] WBC 2.25k/uL Below low normal 429784362433 4 - 10.8 [facility] RBC 2.78million/uL Below low normal [id number] 4.2 - 5.5 [facility] Hgb 8.1gm/dL Below low normal 277381927591 12.5 - 16.5 [facility] Hct 24.9% Below low normal 981250361568 37.5 - 49.5 [facility] MCV 89.6FL Normal [id number] 81 - 100 [facility] MCH 29.1pg Normal [id number] 27 - 31 [facility] MCHC 32.5gm/dL Normal [id number] 31 - 36 [facility] RDW 15.7% Above high normal [id number] 11.5 - 15.5 [facility] Platelet 33k/uL Below low normal 219244899798 145 - 400 [facility] MPV 12.9FL Above high normal 804977247223 7.5 - 10.4 [facility] NRBC auto 0/100wbcs Normal 884010271481 0 - 2 [facility] NRBC Abs 0k/uL Normal [id number] 0 - 0.1 [facility] Neutro % 69.4% Normal 43 - 75 [facility] Neutro Absolute 1.6k/uL Below low normal 155994275097 1.7 - 8.1 [facility] Imm Gran % 0.9% Above high normal 884724014743 0.1 - 0. 3 [facility] Imm Gran Absolute 0.02k/uL Normal [id number] 0.01 - 0.03 [facility] Lymph % 8.4% Below low normal 013780672557 15 - 45 [facility] Lymph Absolute 0.2k/uL Below low normal 060191771777 0.6 - 4.9 [facility] [place] % 8.4% Normal 3 - 12 [facility] Monocyte Abs 0.2k/uL Normal [id number] 0.1 - 1.3 [facility] Eos % 12% Above high normal 059627777724 0 - 6 [facility] Eosinophil Abs 0.3k/uL Normal 061164092735 0 - 0.7 [facility] Basophil % 0.9% Normal 0 - 2 [facility] Basophil Abs 0k/uL Normal 280095690429 0 - 0.2 [facility] GFR [facility] [place] 103mL/min/1.73m2 Normal - [facility] Bili Direct 4.1mg/dL Above high normal 0 - 0.3 [facility] Phosphorus Lvl 2.7mg/dL Normal 2.4 - 5.1 [facility] Magnesium Lvl 1.5mg/dL Below low normal 1.6 - 2.6 [facility] Sodium Lvl 131mmol/L Below low normal 136 - 145 [facility] Potassium Lvl 4.4mmol/L Normal 3.4 - 4.5 [facility] Chloride 106mmol/L Normal 98 - 107 [facility] CO2 20mmol/L Normal 20 - 31 [facility] AGAP 5mmol/L Normal 5 - 15 [facility] Glucose Lvl Random 134mg/dL Normal 65 - 140 [facility] BUN 13mg/dL Normal 9 - 23 [facility] Creatinine 0.72mg/dL Normal 0.6 - 1.1 [facility] Calcium Lvl 7.8mg/dL Below low normal 833914067750 8.7 - 10.4 [facility] Alk Phos 65unit/L Normal 46 - 116 [facility] AST 21unit/L Normal 0 - 33 [facility] ALT 44unit/L Normal 10 - 49 [facility] Total Protein 4.7gm/dL Below low normal 5.7 - 8.2 [facility] Albumin Lvl 2.7gm/dL Below low normal 3.2 - 4. 8 [facility] Globulin 2gm/dL Normal 1.3 - 4.7 [facility] A/G Ratio 1.4 Normal 1 - 3.8 [facility] Bili Total 5.1mg/dL Above high normal 0.2 - 1. 1 [facility] Vancomycin Rn 22.2mcg/mL Normal 10 - 40 [facility] WBC 2.16k/uL Below low normal [id number] 4 - 10.8 [facility] RBC 2.71million/uL Below low normal 4.2 - 5.5 [facility] Hgb 8.1gm/dL Below low normal 390601725113 12.5 - 16.5 [facility] Hct 24% Below low normal 37.5 - 49.5 [facility] MCV 88.6FL Normal 371698104605 81 - 100 [facility] MCH 29.9pg Normal 615264802791 27 - 31 [facility] MCHC 33.8gm/dL Normal 570398692164 31 - 36 [facility] RDW 15.8% Above high normal [id number] 11.5 - 15.5 [facility] Platelet 26k/uL Critically low 232865317098 145 - 400 [facility] Imm Platelet % 3% Normal 399205034975 1.1 - 6.7 [facility] MPV 12FL Above high normal [id number] 7.5 - 10.4 [facility] NRBC auto 0/100wbcs Normal [id number] 0 - 2 [facility] NRBC Abs 0k/uL Normal [id number] 0 - 0.1 [facility] Neutro % 48.6% Normal [id number] 43 - 75 [facility] Neutro Absolute 1k/uL Below low normal 597058658360 1.7 - 8.1 [facility] Imm Gran % 19.4% Above high normal 736522551462 0.1 - 0. 3 [facility] Imm Gran Absolute 0.42k/uL Above high normal 14723219227 1 0.01 - 0.03 [facility] Lymph % 10.2% Below low normal [id number] 15 - 45 [facility] Lymph Absolute 0.2k/uL Below low normal 064100727360 0.6 - 4.9 [facility] [place] % 9.3% Normal [id number] 3 - 12 [facility] Monocyte Abs 0.2k/uL Normal [id number] 0.1 - 1.3 [facility] Eos % 11.6% Above high normal 480415131608 0 - 6 [facility] Eosinophil Abs 0.2k/uL Normal [id number] 0 - 0.7 [facility] Basophil % 0.9% Normal [id number] 0 - 2 [facility] Basophil Abs 0k/uL Normal 318919937301 0 - 0.2 [facility] PTT 29.4sec Normal [id number] 22.2 - 35 [facility] PT 19.2sec Above high normal 632317925796 12.2 - 14.8 [facility] INR 1.6 Above high normal 675678901936 0.8 - 1.2 [facility] Fibrinogen 449mg/dL Normal 407932500042 174 - 514 [facility] GLUCOMETER 138mg/dL Normal 875083766654 65 - 140 [facility] GFR [facility] [place] 101mL/min/1.73m2 Normal 760048065488 - [facility] Phosphorus Lvl 3.2mg/dL Normal [id number] 2.4 - 5.1 [facility] Sodium Lvl 133mmol/L Below low normal 091505526835 136 - 145 [facility] Potassium Lvl 4.4mmol/L Normal 292384619839 3.4 - 4.5 [facility] Chloride 107mmol/L Normal [id number] 98 - 107 [facility] CO2 20mmol/L Normal 578083943856 20 - 31 [facility] AGAP 6mmol/L Normal 681053780355 5 - 15 [facility] Glucose Lvl Random 156mg/dL Above high normal 278732181130 65 - 140 [facility] BUN 16mg/dL Normal [id number] 9 - 23 [facility] Creatinine 0.78mg/dL Normal [id number] 0.6 - 1.1 [facility] Calcium Lvl 7.8mg/dL Below low normal 225998492358 8.7 - 10.4 [facility] Alk Phos 63unit/L Normal 750988589835 46 - 116 [facility] AST 25unit/L Normal 732695286501 0 - 33 [facility] ALT 50unit/L Above high normal [id number] 10 - 49 [facility] Total Protein 4.7gm/dL Below low normal [id number] 5.7 - 8.2 [facility] Albumin Lvl 2.8gm/dL Below low normal [id number] 3.2 - 4. 8 [facility] Globulin 1.9gm/dL Normal [id number] 1.3 - 4.7 [facility] A/G Ratio 1.5 Normal [id number] 1 - 3.8 [facility] Bili Total 4.6mg/dL Above high normal [id number] 0.2 - 1. 1 [facility] Bili Direct 3.4mg/dL Above high normal [id number] 0 - 0.3 [facility] Magnesium Lvl 1.7mg/dL Normal [id number] 1.6 - 2.6 [facility] PT 20.5sec Above high normal [id number] 12.2 - 14.8 [facility] INR 1.7 Above high normal [id number] 0.8 - 1.2 [facility] PTT 26.8sec Normal [id number] 22.2 - 35 [facility] Neutro % Interp See Comment Normal [facility] WBC 2.12k/uL Below low normal [id number] 4 - 10.8 [facility] RBC 2.78million/uL Below low normal [id number] 4.2 - 5.5 [facility] Hgb 8.2gm/dL Below low normal [id number] 12.5 - 16.5 [facility] Hct 24.8% Below low normal [id number] 37.5 - 49.5 [facility] MCV 89.2FL Normal [id number] 81 - 100 [facility] MCH 29.5pg Normal [id number] 27 - 31 [facility] MCHC 33.1gm/dL Normal [id number] 31 - 36 [facility] RDW 15.8% Above high normal [id number] 11.5 - 15.5 [facility] Platelet 24k/uL Critically low [id number] 145 - 400 [facility] NRBC auto 0/100wbcs Normal [id number] 0 - 2 [facility] NRBC Abs 0k/uL Normal [id number] 0 - 0.1 [facility] Neutro % 57.6% Normal [id number] 43 - 75 [facility] Neutro Absolute 1.2k/uL Below low normal [id number] 1.7 - 8.1 [facility] Imm Gran % 14.2% Above high normal [id number] 0.1 - 0. 3 [facility] Imm Gran Absolute 0.3k/uL Above high normal 20437442797 5 0.01 - 0.03 [facility] Lymph % 11.3% Below low normal [id number] 15 - 45 [facility] Lymph Absolute 0.2k/uL Below low normal [id number] 0.6 - 4.9 [facility] [place] % 6.6% Normal [id number] 3 - 12 [facility] Monocyte Abs 0.1k/uL Normal [id number] 0.1 - 1.3 [facility] Eos % 9.4% Above high normal [id number] 0 - 6 [facility] Eosinophil Abs 0.2k/uL Normal [id number] 0 - 0.7 [facility] Basophil % 0.9% Normal [id number] 0 - 2 [facility] Basophil Abs 0k/uL Normal [id number] 0 - 0.2 [facility] GLUCOMETER 171mg/dL Above high normal [id number] 65 - 140 [facility] Segs Man 72% Normal [id number] 43 - 75 [facility] Band Man 3% Normal [id number] 0 - 10 [facility] Lymph Man 8% Below low normal [id number] 15 - 45 [facility] Monocyte Man 4% Normal [id number] 3 - 12 [facility] Eos Man 4% Normal [id number] 0 - 6 [facility] Basophil Man 4% Above high normal [id number] 0 - 2 [facility] [place] Man 4% Above high normal [id number] 0 - 1 [facility] Myelo Man 2% Above high normal [id number] 0 - 1 [facility] NRBC Man 1/100wbcs Normal [id number] 0 - 2 [facility] Neut Abs Count 1.4k/uL Below low normal [id number] 1.7 - 8.1 [facility] Anisocyte Abnormal [id number] [facility] Polychrom Abnormal 977791162208 [facility] RBC Morph Normal 188933133556 - [facility] Platelet Est Abnormal 346895920031 - [facility] Poik Abnormal [id number] [facility] Microcyte Abnormal 581179317307 [facility] GFR Center [place] 100mL/min/1.73m2 Normal 439935470729 - [facility] Magnesium Lvl 2mg/dL Normal [id number] 1.6 - 2.6 [facility] Sodium Lvl 133mmol/L Below low normal 702510068596 136 - 145 [facility] Potassium Lvl 4.6mmol/L Above high normal 659569265299 3.4 - 4.5 [facility] Chloride 109mmol/L Above high normal 190374808376 98 - 107 [facility] CO2 20mmol/L Normal [id number] 20 - 31 [facility] AGAP 4mmol/L Below low normal [id number] 5 - 15 [facility] Glucose Lvl Random 122mg/dL Normal [id number] 65 - 140 [facility] BUN 17mg/dL Normal 181424941816 9 - 23 [facility] Creatinine 0.8mg/dL Normal [id number] 0.6 - 1.1 [facility] Calcium Lvl 7.7mg/dL Below low normal 291028612716 8.7 - 10.4 [facility] Phosphorus Lvl 3.4mg/dL Normal 493565790624 2.4 - 5.1 [facility] Alk Phos 60unit/L Normal [id number] 46 - 116 [facility] AST 33unit/L Normal [id number] 0 - 33 [facility] ALT 53unit/L Above high normal [id number] 10 - 49 [facility] Total Protein 4.6gm/dL Below low normal 978137431074 5.7 - 8.2 [facility] Albumin Lvl 2.8gm/dL Below low normal [id number] 3.2 - 4. 8 [facility] Globulin 1.8gm/dL Normal [id number] 1.3 - 4.7 [facility] A/G Ratio 1.6 Normal [id number] 1 - 3.8 [facility] Bili Total 4mg/dL Above high normal 608504746991 0.2 - 1. 1 [facility] Bili Direct 3.1mg/dL Above high normal [id number] 0 - 0.3 [facility] WBC 1.81k/uL Below low normal [id number] 4 - 10.8 [facility] RBC 2.57million/uL Below low normal 819545406186 4.2 - 5.5 [facility] Hgb 7.6gm/dL Below low normal 508738573694 12.5 - 16.5 [facility] Hct 22.8% Below low normal 802257591728 37.5 - 49.5 [facility] MCV 88.7FL Normal 743473527520 81 - 100 [facility] MCH 29.6pg Normal [id number] 27 - 31 [facility] MCHC 33.3gm/dL Normal [id number] 31 - 36 [facility] RDW 16.3% Above high normal 805974972509 11.5 - 15.5 [facility] Platelet 21k/uL Critically low [id number] 145 - 400 [facility] MPV 13.2FL Above high normal 845242380780 7.5 - 10.4 [facility] NRBC auto 0/100wbcs Normal [id number] 0 - 2 [facility] NRBC Abs 0k/uL Normal [id number] 0 - 0.1 [facility] Neutro % 61.3% Normal [id number] 43 - 75 [facility] Neutro Absolute 1.1k/uL Below low normal [id number] 1.7 - 8.1 [facility] Imm Gran % 18.2% Above high normal [id number] 0.1 - 0. 3 [facility] Imm Gran Absolute 0.33k/uL Above high normal 39369059165 4 0.01 - 0.03 [facility] Lymph % 7.2% Below low normal [id number] 15 - 45 [facility] Lymph Absolute 0.1k/uL Below low normal [id number] 0.6 - 4.9 [facility] [place] % 6.6% Normal [id number] 3 - 12 [facility] Monocyte Abs 0.1k/uL Normal [id number] 0.1 - 1.3 [facility] Eos % 6.1% Above high normal [id number] 0 - 6 [facility] Eosinophil Abs 0.1k/uL Normal [id number] 0 - 0.7 [facility] Basophil % 0.6% Normal 759314263719 0 - 2 [facility] Basophil Abs 0k/uL Normal 946587181528 0 - 0.2 [facility] PT 20.9sec Above high normal 246247453266 12.2 - 14.8 [facility] INR 1.8 Above high normal [id number] 0.8 - 1.2 [facility] PTT 28.3sec Normal 579973689794 22.2 - 35 [facility] GLUCOMETER 118mg/dL Normal 105856245155 65 - 140 [facility] GLUCOMETER 122mg/dL Normal [id number] 65 - 140 [facility] Tacrolimus Lvl 8.1ng/mL Normal [id number] 5 - 19 [facility] COVID-19/Coronavir us RNA PCR Normal [id number] [facility] GFR [facility] [place] 97mL/min/1.73m2 Normal 595064223874 - [facility] PT 21.5sec Above high normal 946516580853 12.2 - 14.8 [facility] INR 1.8 Above high normal [id number] 0.8 - 1.2 [facility] PTT 32.3sec Normal [id number] 22.2 - 35 [facility] Fibrinogen 298mg/dL Normal [id number] 174 - 514 [facility] Magnesium Lvl 2.3mg/dL Normal [id number] 1.6 - 2.6 [facility] Phosphorus Lvl 3.6mg/dL Normal 114571319510 2.4 - 5.1 [facility] Triglyceride 89mg/dL Normal [id number] 0 - 149 [facility] Sodium Lvl 136mmol/L Normal [id number] 136 - 145 [facility] Potassium Lvl 4.6mmol/L Above high normal 247172025396 3.4 - 4.5 [facility] Chloride 109mmol/L Above high normal [id number] 98 - 107 [facility] CO2 21mmol/L Normal [id number] 20 - 31 [facility] AGAP 6mmol/L Normal [id number] 5 - 15 [facility] Glucose Lvl Random 120mg/dL Normal [id number] 65 - 140 [facility] BUN 17mg/dL Normal [id number] 9 - 23 [facility] Creatinine 0.89mg/dL Normal [id number] 0.6 - 1.1 [facility] Calcium Lvl 7.9mg/dL Below low normal 183971510952 8.7 - 10.4 [facility] Alk Phos 54unit/L Normal [id number] 46 - 116 [facility] AST 41unit/L Above high normal [id number] 0 - 33 [facility] ALT 55unit/L Above high normal [id number] 10 - 49 [facility] Total Protein 4.4gm/dL Below low normal [id number] 5.7 - 8.2 [facility] Albumin Lvl 2.9gm/dL Below low normal [id number] 3.2 - 4. 8 [facility] Globulin 1.5gm/dL Normal [id number] 1.3 - 4.7 [facility] A/G Ratio 1.9 Normal [id number] 1 - 3.8 [facility] Bili Total 4.1mg/dL Above high normal [id number] 0.2 - 1. 1 [facility] Bili Direct 3.3mg/dL Above high normal 081372615431 0 - 0.3 [facility] Lipase Lvl 23unit/L Normal [id number] 12 - 53 [facility] Imm Platelet Comment See Comment Normal [id number] [facility] WBC 2.35k/uL Below low normal [id number] 4 - 10.8 [facility] RBC 2.43million/uL Below low normal 261190801555 4.2 - 5.5 [facility] Hgb 7.1gm/dL Below low normal 325240389547 12.5 - 16.5 [facility] Hct 21.5% Below low normal [id number] 37.5 - 49.5 [facility] MCV 88.5FL Normal [id number] 81 - 100 [facility] MCH 29.2pg Normal [id number] 27 - 31 [facility] MCHC 33gm/dL Normal [id number] 31 - 36 [facility] RDW 16.2% Above high normal [id number] 11.5 - 15.5 [facility] Platelet 25k/uL Critically low [id number] 145 - 400 [facility] Imm Platelet % 3.7% Normal [id number] 1.1 - 6.7 [facility] MPV 12.3FL Above high normal [id number] 7.5 - 10.4 [facility] NRBC auto 0/100wbcs Normal [id number] 0 - 2 [facility] NRBC Abs 0k/uL Normal [id number] 0 - 0.1 [facility] Neutro % 62% Normal [id number] 43 - 75 [facility] Neutro Absolute 1.5k/uL Below low normal [id number] 1.7 - 8.1 [facility] Imm Gran % 12.8% Above high normal [id number] 0.1 - 0. 3 [facility] Imm Gran Absolute 0.3k/uL Above high normal 59575607005 2 0.01 - 0.03 [facility] Lymph % 10.2% Below low normal [id number] 15 - 45 [facility] Lymph Absolute 0.2k/uL Below low normal [id number] 0.6 - 4.9 [facility] [place] % 6% Normal [id number] 3 - 12 [facility] Monocyte Abs 0.1k/uL Normal [id number] 0.1 - 1.3 [facility] Eos % 8.1% Above high normal [id number] 0 - 6 [facility] Eosinophil Abs 0.2k/uL Normal [id number] 0 - 0.7 [facility] Basophil % 0.9% Normal [id number] 0 - 2 [facility] Basophil Abs 0k/uL Normal [id number] 0 - 0.2 [facility] GLUCOMETER 128mg/dL Normal [id number] 65 - 140 [facility] AbSc 2C Int Normal [id number] [facility] Testing Site Normal [id number] [facility] ABORh Int O POS Normal [id number] [facility] GLUCOMETER 139mg/dL Normal [id number] 65 - 140 [facility] Magnesium Lvl 0.8mg/dL Critically low 440930815653 1.6 - 2. 6 [facility] Lactic Acid Lvl 2.4mmol/L Above high normal 850277161580 0.5 - 2.2 [facility] GFR Center [place] 101mL/min/1.73m2 Normal [id number] - [facility] Bili Direct 2.4mg/dL Above high normal 222862199077 0 - 0.3 [facility] Sodium Lvl 136mmol/L Normal [id number] 136 - 145 [facility] Potassium Lvl 4.4mmol/L Normal [id number] 3.4 - 4.5 [facility] Chloride 109mmol/L Above high normal 657768802313 98 - 107 [facility] CO2 19mmol/L Below low normal [id number] 20 - 31 [facility] AGAP 8mmol/L Normal 938047020353 5 - 15 [facility] Glucose Lvl Random 166mg/dL Above high normal [id number] 65 - 140 [facility] BUN 15mg/dL Normal [id number] 9 - 23 [facility] Creatinine 0.77mg/dL Normal 530052229053 0.6 - 1.1 [facility] Calcium Lvl 7.7mg/dL Below low normal 044626199361 8.7 - 10.4 [facility] Alk Phos 76unit/L Normal [id number] 46 - 116 [facility] AST 53unit/L Above high normal [id number] 0 - 33 [facility] ALT 64unit/L Above high normal [id number] 10 - 49 [facility] Total Protein 4.8gm/dL Below low normal [id number] 5.7 - 8.2 [facility] Albumin Lvl 2.8gm/dL Below low normal 609744021778 3.2 - 4. 8 [facility] Globulin 2gm/dL Normal [id number] 1.3 - 4.7 [facility] A/G Ratio 1.4 Normal [id number] 1 - 3.8 [facility] Bili Total 3.6mg/dL Above high normal 063583946042 0.2 - 1. 1 [facility] Phosphorus Lvl 3.8mg/dL Normal [id number] 2.4 - 5.1 [facility] PTT 26.5sec Normal [id number] 22.2 - 35 [facility] PT 19sec Above high normal [id number] 12.2 - 14.8 [facility] INR 1.6 Above high normal [id number] 0.8 - 1.2 [facility] WBC 3.82k/uL Below low normal [id number] 4 - 10.8 [facility] RBC 3.35million/uL Below low normal [id number] 4.2 - 5.5 [facility] Hgb 10gm/dL Below low normal 407394981950 12.5 - 16.5 [facility] Hct 29.6% Below low normal [id number] 37.5 - 49.5 [facility] MCV 88.4FL Normal [id number] 81 - 100 [facility] MCH 29.9pg Normal [id number] 27 - 31 [facility] MCHC 33.8gm/dL Normal [id number] 31 - 36 [facility] RDW 16% Above high normal 704446193606 11.5 - 15.5 [facility] Platelet 43k/uL Below low normal [id number] 145 - 400 [facility] MPV 10.8FL Above high normal [id number] 7.5 - 10.4 [facility] NRBC auto 0/100wbcs Normal [id number] 0 - 2 [facility] NRBC Abs 0k/uL Normal [id number] 0 - 0.1 [facility] Neutro % 71.8% Normal [id number] 43 - 75 [facility] Neutro Absolute 2.7k/uL Normal [id number] 1.7 - 8.1 [facility] Imm Gran % 11.5% Above high normal 339407844521 0.1 - 0. 3 [facility] Imm Gran Absolute 0.44k/uL Above high normal 03009717377 5 0.01 - 0.03 [facility] Lymph % 7.1% Below low normal [id number] 15 - 45 [facility] Lymph Absolute 0.3k/uL Below low normal 440322774443 0.6 - 4.9 [facility] [place] % 3.9% Normal [id number] 3 - 12 [facility] Monocyte Abs 0.2k/uL Normal 552543272508 0.1 - 1.3 [facility] Eos % 4.7% Normal [id number] 0 - 6 [facility] Eosinophil Abs 0.2k/uL Normal 521751900501 0 - 0.7 [facility] Basophil % 1% Normal [id number] 0 - 2 [facility] Basophil Abs 0k/uL Normal [id number] 0 - 0.2 [facility] pH Art 7.34 Below low normal [id number] 7.35 - 7.45 [facility] pCO2 Art 34.9mmHg Below low normal [id number] 35 - 45 [facility] pO2 Art 130.5mmHg Above high normal 331934896571 83 - 108 [facility] HCO3 Art 18.8mmol/L Below low normal 683294277548 21 - 28 [facility] TCO2 Art 20mmol/L Below low normal 289615650855 22 - 30 [facility] Base Ex/Def Art -7.2mmol/L Below low normal 632214601803 - 2 [facility] O2 Sat Calc Art 98.9% Normal [id number] 95 - 100 [facility] BG FIO2 50 Normal [id number] [facility] Temperature Lab 36.3C Normal 273165776221 [facility] pH Art 7.27 Below low normal 228507649011 7.35 - 7.45 [facility] pCO2 Art 43mmHg Normal 229891535154 35 - 45 [facility] pO2 Art 375mmHg Above high normal [id number] 83 - 108 [facility] HCO3 Art 19.7mmol/L Below low normal 590651533594 21 - 28 [facility] Base Ex/Def Art -6.8mmol/L Below low normal 710360319158 - 2 [facility] O2 Sat Calc Art 99.9% Normal 999985740977 95 - 100 [facility] O2 Sat Christos Art 100% Normal [id number] 95 - 100 [facility] Temperature Lab 37C Normal 783471012610 [facility] pH Art Temp C 7.27 Below low normal 416590262761 7.3 5 - 7.45 [facility] pCO2 Art Temp C 43mmHg Normal 051342802520 35 - 45 [facility] pO2 Art Temp C 375mmHg Above high normal 478211621044 83 - 108 [facility] O2 Content Art 13.2Vol% Below low normal 967436196393 17 - 21 [facility] Total Hgb Art 8.9gm/dL Below low normal 857855699067 12. 5 - 16.5 [facility] Oxyhgb Art 97.5% Above high normal 143274661703 94 - 97 [facility] COHB Level Art 1.9% Above high normal 211821899151 0 - 1.5 [facility] Methgb Art 0.7% Normal [id number] 0.4 - 1.5 [facility] Deoxyhgb Art 0% Normal [id number] 0 - 5 [facility] Calcium Ionized 1.07mmol/L Below low normal 817813456406 1 .12 - 1.32 [facility] Sodium Lvl 131mmol/L Below low normal 336823785960 137 - 145 [facility] Potassium Lvl 4.3mmol/L Normal [id number] 3.5 - 5.1 [facility] Lactic Acid Lvl 1.9mmol/L Normal [id number] 0.7 - 2 [facility] Glucose Lvl Random 163mg/dL Above high normal 728398945430 65 - 140 [facility] Tacrolimus Lvl 8.7ng/mL Normal 574676732770 5 - 19 [facility] Segs Man 64% Normal [id number] 43 - 75 [facility] Lymph Man 12% Below low normal [id number] 15 - 45 [facility] Monocyte Man 9% Normal [id number] 3 - 12 [facility] Eos Man 7% Above high normal 049051005794 0 - 6 [facility] Basophil Man 8% Above high normal 600347973163 0 - 2 [facility] Atyp Lymph Man 1% Normal [id number] 0 - 5 [facility] Neut Abs Count 1.5k/uL Below low normal [id number] 1.7 - 8.1 [facility] Anisocyte Abnormal 970917400831 [facility] Platelet Morph Abnormal 440517577569 [facility] Polychrom Abnormal 387644374629 [facility] RBC Morph Normal 839402605942 - [facility] Platelet Est Abnormal 568186062119 - [facility] Ovalocytes Abnormal 091453356961 [facility] Poik Abnormal 876220039701 [facility] Microcyte Abnormal 019425355753 [facility] WBC 0.7k/uL Critically low 619645548220 4 - 10.8 [facility] RBC 6.03million/uL Above high normal 904069433502 4.2 - 5.5 [facility] Hgb 17.3gm/dL Above high normal 219588044314 12.5 - 16.5 [facility] Hct 50.7% Above high normal [id number] 37.5 - 49.5 [facility] MCV 84.1FL Normal 447132367591 81 - 100 [facility] MCH 28.7pg Normal [id number] 27 - 31 [facility] MCHC 34.1gm/dL Normal [id number] 31 - 36 [facility] RDW 17.1% Above high normal 301975645407 11.5 - 15.5 [facility] Platelet 18k/uL Critically low 729478903686 145 - 400 [facility] NRBC auto 0/100wbcs Normal [id number] 0 - 2 [facility] NRBC Abs 0k/uL Normal [id number] 0 - 0.1 [facility] Neutro % 52.9% Normal [id number] 43 - 75 [facility] Neutro Absolute 0.4k/uL Below low normal 717833262073 1.7 - 8.1 [facility] Imm Gran % 17.1% Above high normal 871889433387 0.1 - 0. 3 [facility] Imm Gran Absolute 0.12k/uL Above high normal 36059777662 6 0.01 - 0.03 [facility] Lymph % 12.9% Below low normal 971224135531 15 - 45 [facility] Lymph Absolute 0.1k/uL Below low normal 322045379072 0.6 - 4.9 [facility] [place] % 7.1% Normal [id number] 3 - 12 [facility] Monocyte Abs 0k/uL Below low normal 519008591286 0.1 - 1 .3 [facility] Eos % 8.6% Above high normal 718248056656 0 - 6 [facility] Eosinophil Abs 0.1k/uL Normal [id number] 0 - 0.7 [facility] Basophil % 1.4% Normal [id number] 0 - 2 [facility] Basophil Abs 0k/uL Normal 756562993887 0 - 0.2 [facility] Magnesium Lvl 0.9mg/dL Critically low [id number] 1.6 - 2. 6 [facility] GFR [facility] [place] 102mL/min/1.73m2 Normal 296402477645 - [facility] Sodium Lvl 131mmol/L Below low normal 233842381622 136 - 145 [facility] Potassium Lvl 4.2mmol/L Normal 978677188642 3.4 - 4.5 [facility] Chloride 104mmol/L Normal 524802837966 98 - 107 [facility] CO2 17mmol/L Below low normal 752124486235 20 - 31 [facility] AGAP 10mmol/L Normal 343408141392 5 - 15 [facility] Glucose Lvl Random 148mg/dL Above high normal 186405272897 65 - 140 [facility] BUN 12mg/dL Normal 219328249877 9 - 23 [facility] Creatinine 0.74mg/dL Normal 637663385704 0.6 - 1.1 [facility] Calcium Lvl 8mg/dL Below low normal 679377558751 8.7 - 10.4 [facility] Alk Phos 104unit/L Normal 448752613802 46 - 116 [facility] AST 47unit/L Above high normal 201677533110 0 - 33 [facility] ALT 69unit/L Above high normal [id number] 10 - 49 [facility] Total Protein 5.8gm/dL Normal 451426047221 5.7 - 8.2 [facility] Albumin Lvl 3gm/dL Below low normal 147183718229 3.2 - 4. 8 [facility] Globulin 2.8gm/dL Normal [id number] 1.3 - 4.7 [facility] A/G Ratio 1.1 Normal [id number] 1 - 3.8 [facility] Bili Total 1.4mg/dL Above high normal 977063496336 0.2 - 1. 1 [facility] Phosphorus Lvl 2.1mg/dL Below low normal [id number] 2.4 - 5.1 [facility] Bili Direct 0.8mg/dL Above high normal 619832036286 0 - 0.3 [facility] WBC 2.3k/uL Below low normal 431419691682 4 - 10.8 [facility] RBC 2.97million/uL Below low normal 007474699588 4.2 - 5.5 [facility] Hgb 8.4gm/dL Below low normal 020926510520 12.5 - 16.5 [facility] Hct 25.8% Below low normal 235955313631 37.5 - 49.5 [facility] MCV 86.9FL Normal 921279337843 81 - 100 [facility] MCH 28.3pg Normal 852817642325 27 - 31 [facility] MCHC 32.6gm/dL Normal [id number] 31 - 36 [facility] RDW 15.7% Above high normal 254732955398 11.5 - 15.5 [facility] Platelet 43k/uL Below low normal 164950901242 145 - 400 [facility] MPV 10.4FL Normal 445858496788 7.5 - 10.4 [facility] NRBC auto 0/100wbcs Normal 057581789394 0 - 2 [facility] NRBC Abs 0k/uL Normal 473890301287 0 - 0.1 [facility] Neutro % 64.8% Normal 537801351135 43 - 75 [facility] Neutro Absolute 1.5k/uL Below low normal 555591125298 1.7 - 8.1 [facility] Imm Gran % 8.3% Above high normal 475253535170 0.1 - 0. 3 [facility] Imm Gran Absolute 0.19k/uL Above high normal 07050602257 9 0.01 - 0.03 [facility] Lymph % 9.1% Below low normal 792916118523 15 - 45 [facility] Lymph Absolute 0.2k/uL Below low normal 776067504873 0.6 - 4.9 [facility] [place] % 7.8% Normal 711906996637 3 - 12 [facility] Monocyte Abs 0.2k/uL Normal [id number] 0.1 - 1.3 [facility] Eos % 8.7% Above high normal 227918498424 0 - 6 [facility] Eosinophil Abs 0.2k/uL Normal 801235200455 0 - 0.7 [facility] Basophil % 1.3% Normal 066863939627 0 - 2 [facility] Basophil Abs 0k/uL Normal [id number] 0 - 0.2 [facility] PTT 24.3sec Normal 363262108365 22.2 - 35 [facility] PT 16.2sec Above high normal 977547507127 12.2 - 14.8 [facility] INR 1.3 Above high normal 489553053494 0.8 - 1.2 [facility] Lactic Acid Lvl 2.8mmol/L Above high normal 156857727808 0.5 - 2.2 [facility] GLUCOMETER 154mg/dL Above high normal 153262325511 65 - 140 [facility] GLUCOMETER 205mg/dL Above high normal [id number] 65 - 140 [facility] GLUCOMETER 167mg/dL Above high normal 467436060902 65 - 140 [facility] GLUCOMETER 180mg/dL Above high normal 164347625884 65 - 140 [facility] GLUCOMETER 164mg/dL Above high normal 362574945837 65 - 140 [facility] Segs Man 75% Normal [id number] 43 - 75 [facility] Lymph Man 22% Normal [id number] 15 - 45 [facility] Monocyte Man 0% Below low normal 199170931347 3 - 12 [facility] Eos Man 2% Normal [id number] 0 - 6 [facility] Basophil Man 1% Normal 372609259424 0 - 2 [facility] Neut Abs Count 1.4k/uL Below low normal 991855693223 1.7 - 8.1 [facility] Anisocyte Abnormal 116197164460 [facility] Platelet Morph Abnormal 875889449425 [facility] Polychrom Abnormal 747550068608 [facility] RBC Morph Normal 783501298832 - [facility] Platelet Est Abnormal 339852793742 - [facility] Ovalocytes Abnormal 856614559037 [facility] Poik Abnormal 717087966005 [facility] Schistocyte Abnormal 999803935325 [facility] Microcyte Abnormal 213931076176 [facility] PTT 21.1sec Below low normal 893862968559 22.2 - 35 [facility] GFR Center [place] 100mL/min/1.73m2 Normal 721636041368 - [facility] Sodium Lvl 131mmol/L Below low normal 892922912626 136 - 145 [facility] Potassium Lvl 5.4mmol/L Above high normal 663344297205 3.4 - 4.5 [facility] Chloride 104mmol/L Normal 861251515157 98 - 107 [facility] CO2 20mmol/L Normal 820451802599 20 - 31 [facility] AGAP 7mmol/L Normal 796054761025 5 - 15 [facility] Glucose Lvl Random 191mg/dL Above high normal [id number] 65 - 140 [facility] BUN 16mg/dL Normal 955707926022 9 - 23 [facility] Creatinine 0.81mg/dL Normal 456084303471 0.6 - 1.1 [facility] Calcium Lvl 8.1mg/dL Below low normal 271812161267 8.7 - 10.4 [facility] Alk Phos 102unit/L Normal 858041160940 46 - 116 [facility] AST 44unit/L Above high normal 777416903002 0 - 33 [facility] ALT 54unit/L Above high normal 710843462770 10 - 49 [facility] Total Protein 5.7gm/dL Normal 692611015535 5.7 - 8.2 [facility] Albumin Lvl 2.8gm/dL Below low normal 032817062224 3.2 - 4. 8 [facility] Globulin 2.9gm/dL Normal [id number] 1.3 - 4.7 [facility] A/G Ratio 1 Normal [id number] 1 - 3.8 [facility] Bili Total 1mg/dL Normal [id number] 0.2 - 1.1 [facility] WBC 1.87k/uL Below low normal 047845223029 4 - 10.8 [facility] RBC 3.06million/uL Below low normal 734194896557 4.2 - 5.5 [facility] Hgb 8.8gm/dL Below low normal 455416630979 12.5 - 16.5 [facility] Hct 26.8% Below low normal 857271583650 37.5 - 49.5 [facility] MCV 87.6FL Normal 350219411209 81 - 100 [facility] MCH 28.8pg Normal [id number] 27 - 31 [facility] MCHC 32.8gm/dL Normal [id number] 31 - 36 [facility] RDW 15.6% Above high normal 977919810813 11.5 - 15.5 [facility] Platelet 74k/uL Below low normal [id number] 145 - 400 [facility] MPV 12.5FL Above high normal [id number] 7.5 - 10.4 [facility] NRBC auto 0/100wbcs Normal [id number] 0 - 2 [facility] NRBC Abs 0k/uL Normal [id number] 0 - 0.1 [facility] Neutro % 71.7% Normal [id number] 43 - 75 [facility] Neutro Absolute 1.3k/uL Below low normal [id number] 1.7 - 8.1 [facility] Imm Gran % 6.4% Above high normal [id number] 0.1 - 0. 3 [facility] Imm Gran Absolute 0.12k/uL Above high normal 60265129895 3 0.01 - 0.03 [facility] Lymph % 13.9% Below low normal [id number] 15 - 45 [facility] Lymph Absolute 0.3k/uL Below low normal [id number] 0.6 - 4.9 [facility] [place] % 5.9% Normal [id number] 3 - 12 [facility] Monocyte Abs 0.1k/uL Normal [id number] 0.1 - 1.3 [facility] Eos % 1.6% Normal [id number] 0 - 6 [facility] Eosinophil Abs 0k/uL Normal [id number] 0 - 0.7 [facility] Basophil % 0.5% Normal [id number] 0 - 2 [facility] Basophil Abs 0k/uL Normal [id number] 0 - 0.2 [facility] Tacrolimus Lvl 10.6ng/mL Normal [id number] 5 - 19 [facility] Phosphorus Lvl 3.4mg/dL Normal [id number] 2.4 - 5.1 [facility] Bili Direct 0.6mg/dL Above high normal 745537601944 0 - 0.3 [facility] Magnesium Lvl 1.5mg/dL Below low normal 961088447469 1.6 - 2.6 [facility] PT 15.9sec Above high normal 063932674698 12.2 - 14.8 [facility] INR 1.2 Normal [id number] 0.8 - 1.2 [facility] Fibrinogen 500mg/dL Normal [id number] 174 - 514 [facility] GLUCOMETER 163mg/dL Above high normal [id number] 65 - 140 [facility] GLUCOMETER 166mg/dL Above high normal [id number] 65 - 140 [facility] GLUCOMETER 146mg/dL Above high normal [id number] 65 - 140 [facility] CMV DNA Quant PCR 164IU/mL Above high normal [id number] - [facility] Tacrolimus Lvl 13.6ng/mL Normal 397894402906 5 - 19 [facility] Segs Man 72% Normal [id number] 43 - 75 [facility] Lymph Man 16% Normal [id number] 15 - 45 [facility] Monocyte Man 2% Below low normal 549193902502 3 - 12 [facility] Eos Man 5% Normal [id number] 0 - 6 [facility] Basophil Man 4% Above high normal 697457641216 0 - 2 [facility] Neut Abs Count 1.5k/uL Below low normal [id number] 1.7 - 8.1 [facility] Anisocyte Abnormal [id number] [facility] Platelet Morph Abnormal 206033529512 [facility] Polychrom Abnormal 803066012313 [facility] RBC Morph Normal 236753210067 - [facility] Platelet Est Abnormal [id number] - [facility] Ovalocytes Abnormal [id number] [facility] Poik Abnormal [id number] [facility] Microcyte Abnormal 761279659589 [facility] GLUCOMETER 126mg/dL Normal [id number] 65 - 140 [facility] GFR Center [place] 101mL/min/1.73m2 Normal [id number] - [facility] Sodium Lvl 134mmol/L Below low normal [id number] 136 - 145 [facility] Potassium Lvl 4.3mmol/L Normal [id number] 3.4 - 4.5 [facility] Chloride 108mmol/L Above high normal 917362269605 98 - 107 [facility] CO2 21mmol/L Normal [id number] 20 - 31 [facility] AGAP 5mmol/L Normal 754672568522 5 - 15 [facility] Glucose Lvl Random 118mg/dL Normal [id number] 65 - 140 [facility] BUN 16mg/dL Normal [id number] 9 - 23 [facility] Creatinine 0.78mg/dL Normal 695252709990 0.6 - 1.1 [facility] Calcium Lvl 8.1mg/dL Below low normal [id number] 8.7 - 10.4 [facility] Alk Phos 107unit/L Normal [id number] 46 - 116 [facility] AST 27unit/L Normal [id number] 0 - 33 [facility] ALT 55unit/L Above high normal [id number] 10 - 49 [facility] Total Protein 5.6gm/dL Below low normal [id number] 5.7 - 8.2 [facility] Albumin Lvl 2.8gm/dL Below low normal [id number] 3.2 - 4. 8 [facility] Globulin 2.8gm/dL Normal [id number] 1.3 - 4.7 [facility] A/G Ratio 1 Normal [id number] 1 - 3.8 [facility] Bili Total 1.4mg/dL Above high normal [id number] 0.2 - 1. 1 [facility] Magnesium Lvl 1.2mg/dL Below low normal [id number] 1.6 - 2.6 [facility] Phosphorus Lvl 2.7mg/dL Normal 653631998553 2.4 - 5.1 [facility] Bili Direct 0.8mg/dL Above high normal 254951138066 0 - 0.3 [facility] Lactic Acid Lvl 1.6mmol/L Normal 002090911150 0.5 - 2.2 [facility] Fibrinogen 539mg/dL Above high normal 648161512582 174 - 51 4 [facility] PTT 26.4sec Normal [id number] 22.2 - 35 [facility] PT 15.9sec Above high normal [id number] 12.2 - 14.8 [facility] INR 1.2 Normal [id number] 0.8 - 1.2 [facility] WBC 2.06k/uL Below low normal 630171337512 4 - 10.8 [facility] RBC 3.02million/uL Below low normal 617727501235 4.2 - 5.5 [facility] Hgb 8.8gm/dL Below low normal 411662513777 12.5 - 16.5 [facility] Hct 26.2% Below low normal 079740607765 37.5 - 49.5 [facility] MCV 86.8FL Normal [id number] 81 - 100 [facility] MCH 29.1pg Normal [id number] 27 - 31 [facility] MCHC 33.6gm/dL Normal [id number] 31 - 36 [facility] RDW 15.2% Normal [id number] 11.5 - 15.5 [facility] Platelet 48k/uL Below low normal [id number] 145 - 400 [facility] MPV 11FL Above high normal 520937263911 7.5 - 10.4 [facility] NRBC auto 0/100wbcs Normal [id number] 0 - 2 [facility] NRBC Abs 0k/uL Normal [id number] 0 - 0.1 [facility] Neutro % 57.3% Normal [id number] 43 - 75 [facility] Neutro Absolute 1.2k/uL Below low normal [id number] 1.7 - 8.1 [facility] Imm Gran % 9.2% Above high normal [id number] 0.1 - 0. 3 [facility] Imm Gran Absolute 0.19k/uL Above high normal 14296745643 8 0.01 - 0.03 [facility] Lymph % 13.6% Below low normal [id number] 15 - 45 [facility] Lymph Absolute 0.3k/uL Below low normal 757963068430 0.6 - 4.9 [facility] [place] % 9.2% Normal [id number] 3 - 12 [facility] Monocyte Abs 0.2k/uL Normal [id number] 0.1 - 1.3 [facility] Eos % 9.7% Above high normal 999765327047 0 - 6 [facility] Eosinophil Abs 0.2k/uL Normal 480630430249 0 - 0.7 [facility] Basophil % 1% Normal 037308543025 0 - 2 [facility] Basophil Abs 0k/uL Normal [id number] 0 - 0.2 [facility] GLUCOMETER 179mg/dL Above high normal [id number] 65 - 140 [facility] GLUCOMETER 213mg/dL Above high normal 585071110930 65 - 140 [facility] GLUCOMETER 181mg/dL Above high normal [id number] 65 - 140 [facility] Testing Site Normal [id number] [facility] ABORh Int O POS Normal [id number] [facility] AbSc 2C Int Normal [id number] [facility] GLUCOMETER 118mg/dL Normal [id number] 65 - 140 [facility] Tacrolimus Lvl 8.9ng/mL Normal [id number] 5 - 19 [facility] GFR [facility] [place] 101mL/min/1.73m2 Normal [id number] - [facility] Magnesium Lvl 1.8mg/dL Normal 644164290489 1.6 - 2.6 [facility] Sodium Lvl 136mmol/L Normal [id number] 136 - 145 [facility] Potassium Lvl 4.4mmol/L Normal 371647554513 3.4 - 4.5 [facility] Chloride 108mmol/L Above high normal 377180743818 98 - 107 [facility] CO2 20mmol/L Normal [id number] 20 - 31 [facility] AGAP 8mmol/L Normal [id number] 5 - 15 [facility] Glucose Lvl Random 123mg/dL Normal [id number] 65 - 140 [facility] BUN 18mg/dL Normal [id number] 9 - 23 [facility] Creatinine 0.77mg/dL Normal [id number] 0.6 - 1.1 [facility] Calcium Lvl 7.8mg/dL Below low normal 656849097898 8.7 - 10.4 [facility] Alk Phos 111unit/L Normal [id number] 46 - 116 [facility] AST 29unit/L Normal [id number] 0 - 33 [facility] ALT 52unit/L Above high normal [id number] 10 - 49 [facility] Total Protein 5.4gm/dL Below low normal [id number] 5.7 - 8.2 [facility] Albumin Lvl 2.7gm/dL Below low normal 618442042952 3.2 - 4. 8 [facility] Globulin 2.7gm/dL Normal [id number] 1.3 - 4.7 [facility] A/G Ratio 1 Normal [id number] 1 - 3.8 [facility] Bili Total 0.9mg/dL Normal [id number] 0.2 - 1.1 [facility] Phosphorus Lvl 4.1mg/dL Normal [id number] 2.4 - 5.1 [facility] Bili Direct 0.6mg/dL Above high normal 723042037413 0 - 0.3 [facility] Fibrinogen 508mg/dL Normal 541541888700 174 - 514 [facility] PTT 25.8sec Normal [id number] 22.2 - 35 [facility] PT 16.3sec Above high normal 229058999820 12.2 - 14.8 [facility] INR 1.3 Above high normal 392280719158 0.8 - 1.2 [facility] WBC 2.09k/uL Below low normal 734048502221 4 - 10.8 [facility] RBC 2.31million/uL Below low normal [id number] 4.2 - 5.5 [facility] Hgb 6.6gm/dL Below low normal 945561321020 12.5 - 16.5 [facility] Hct 20.5% Below low normal [id number] 37.5 - 49.5 [facility] MCV 88.7FL Normal [id number] 81 - 100 [facility] MCH 28.6pg Normal [id number] 27 - 31 [facility] MCHC 32.2gm/dL Normal 355106651904 31 - 36 [facility] RDW 15.8% Above high normal 954364210922 11.5 - 15.5 [facility] Platelet 51k/uL Below low normal 386138350535 145 - 400 [facility] MPV 11.4FL Above high normal [id number] 7.5 - 10.4 [facility] NRBC auto 0/100wbcs Normal [id number] 0 - 2 [facility] NRBC Abs 0k/uL Normal [id number] 0 - 0.1 [facility] Neutro % 61.2% Normal [id number] 43 - 75 [facility] Neutro Absolute 1.3k/uL Below low normal 340209457716 1.7 - 8.1 [facility] Imm Gran % 7.2% Above high normal [id number] 0.1 - 0. 3 [facility] Imm Gran Absolute 0.15k/uL Above high normal 38965446775 1 0.01 - 0.03 [facility] Lymph % 16.3% Normal [id number] 15 - 45 [facility] Lymph Absolute 0.3k/uL Below low normal [id number] 0.6 - 4.9 [facility] [place] % 5.7% Normal [id number] 3 - 12 [facility] Monocyte Abs 0.1k/uL Normal [id number] 0.1 - 1.3 [facility] Eos % 9.1% Above high normal 412053665911 0 - 6 [facility] Eosinophil Abs 0.2k/uL Normal 305955381707 0 - 0.7 [facility] Basophil % 0.5% Normal [id number] 0 - 2 [facility] Basophil Abs 0k/uL Normal [id number] 0 - 0.2 [facility] GLUCOMETER 124mg/dL Normal [id number] 65 - 140 [facility] GLUCOMETER 222mg/dL Above high normal 599071226354 65 - 140 [facility] GLUCOMETER 256mg/dL Above high normal [id number] 65 - 140 [facility] Tacrolimus Lvl 9.6ng/mL Normal [id number] 5 - 19 [facility] GLUCOMETER 147mg/dL Above high normal 444037328097 65 - 140 [facility] GFR [facility] [place] 97mL/min/1.73m2 Normal [id number] - [facility] Magnesium Lvl 1mg/dL Below low normal [id number] 1.6 - 2.6 [facility] Phosphorus Lvl 2.7mg/dL Normal [id number] 2.4 - 5.1 [facility] Bili Direct 0.7mg/dL Above high normal 340970755362 0 - 0.3 [facility] Sodium Lvl 135mmol/L Below low normal [id number] 136 - 145 [facility] Potassium Lvl 4.7mmol/L Above high normal 060035238106 3.4 - 4.5 [facility] Chloride 108mmol/L Above high normal 465883319504 98 - 107 [facility] CO2 20mmol/L Normal [id number] 20 - 31 [facility] AGAP 7mmol/L Normal [id number] 5 - 15 [facility] Glucose Lvl Random 101mg/dL Normal [id number] 65 - 140 [facility] BUN 20mg/dL Normal [id number] 9 - 23 [facility] Creatinine 0.89mg/dL Normal 780265217814 0.6 - 1.1 [facility] Calcium Lvl 8.2mg/dL Below low normal 625987656687 8.7 - 10.4 [facility] Alk Phos 107unit/L Normal [id number] 46 - 116 [facility] AST 22unit/L Normal [id number] 0 - 33 [facility] ALT 37unit/L Normal [id number] 10 - 49 [facility] Total Protein 5.5gm/dL Below low normal [id number] 5.7 - 8.2 [facility] Albumin Lvl 2.7gm/dL Below low normal [id number] 3.2 - 4. 8 [facility] Globulin 2.8gm/dL Normal [id number] 1.3 - 4.7 [facility] A/G Ratio 1 Normal [id number] 1 - 3.8 [facility] Bili Total 1.1mg/dL Normal [id number] 0.2 - 1.1 [facility] PTT 28.2sec Normal 021290545751 22.2 - 35 [facility] Fibrinogen 583mg/dL Above high normal 376791216816 174 - 51 4 [facility] PT 16.4sec Above high normal 829903205772 12.2 - 14.8 [facility] INR 1.3 Above high normal 607111377351 0.8 - 1.2 [facility] WBC 2.14k/uL Below low normal 403818544178 4 - 10.8 [facility] RBC 2.52million/uL Below low normal [id number] 4.2 - 5.5 [facility] Hgb 7gm/dL Below low normal 884438432076 12.5 - 16.5 [facility] Hct 22.3% Below low normal 630672046969 37.5 - 49.5 [facility] MCV 88.5FL Normal [id number] 81 - 100 [facility] MCH 27.8pg Normal [id number] 27 - 31 [facility] MCHC 31.4gm/dL Normal [id number] 31 - 36 [facility] RDW 15.4% Normal [id number] 11.5 - 15.5 [facility] Platelet 56k/uL Below low normal 024984680206 145 - 400 [facility] MPV 11.1FL Above high normal 549163625951 7.5 - 10.4 [facility] NRBC auto 0/100wbcs Normal [id number] 0 - 2 [facility] NRBC Abs 0k/uL Normal [id number] 0 - 0.1 [facility] Neutro % 67.2% Normal [id number] 43 - 75 [facility] Neutro Absolute 1.4k/uL Below low normal [id number] 1.7 - 8.1 [facility] Imm Gran % 6.1% Above high normal [id number] 0.1 - 0. 3 [facility] Imm Gran Absolute 0.13k/uL Above high normal 29184420545 1 0.01 - 0.03 [facility] Lymph % 15% Normal [id number] 15 - 45 [facility] Lymph Absolute 0.3k/uL Below low normal [id number] 0.6 - 4.9 [facility] [place] % 4.7% Normal [id number] 3 - 12 [facility] Monocyte Abs 0.1k/uL Normal [id number] 0.1 - 1.3 [facility] Eos % 6.5% Above high normal 030198815828 0 - 6 [facility] Eosinophil Abs 0.1k/uL Normal [id number] 0 - 0.7 [facility] Basophil % 0.5% Normal [id number] 0 - 2 [facility] Basophil Abs 0k/uL Normal [id number] 0 - 0.2 [facility] GLUCOMETER 178mg/dL Above high normal 650095999765 65 - 140 [facility] Lactic Acid Lvl 2mmol/L Normal 596748225802 0.5 - 2.2 [facility] GLUCOMETER 180mg/dL Above high normal 421873842437 65 - 140 [facility] GLUCOMETER 189mg/dL Above high normal 986621631325 65 - 140 [facility] Segs Man 76% Above high normal 136975222921 43 - 75 [facility] Lymph Man 14% Below low normal [id number] 15 - 45 [facility] Monocyte Man 3% Normal [id number] 3 - 12 [facility] Eos Man 6% Normal [id number] 0 - 6 [facility] Basophil Man 2% Normal [id number] 0 - 2 [facility] Neut Abs Count 2.4k/uL Normal 549162723423 1.7 - 8.1 [facility] Anisocyte Abnormal 268695744851 [facility] Platelet Morph Abnormal 033729727786 [facility] Polychrom Abnormal 711341810467 [facility] RBC Morph Normal 144592911300 - [facility] Platelet Est Abnormal 694259676622 - [facility] Toxic Gran Abnormal 784135614585 [facility] Microcyte Abnormal 987929044224 [facility] Tacrolimus Lvl 7.9ng/mL Normal [id number] 5 - 19 [facility] GLUCOMETER 133mg/dL Normal 529591415008 65 - 140 [facility] WBC 3.14k/uL Below low normal 850194626600 4 - 10.8 [facility] RBC 2.48million/uL Below low normal 283879941896 4.2 - 5.5 [facility] Hgb 7.2gm/dL Below low normal 040512712757 12.5 - 16.5 [facility] Hct 22.3% Below low normal 155040521043 37.5 - 49.5 [facility] MCV 89.9FL Normal 421108204072 81 - 100 [facility] MCH 29pg Normal [id number] 27 - 31 [facility] MCHC 32.3gm/dL Normal [id number] 31 - 36 [facility] RDW 15.6% Above high normal [id number] 11.5 - 15.5 [facility] Platelet 57k/uL Below low normal 561434184320 145 - 400 [facility] MPV 11FL Above high normal 842675053161 7.5 - 10.4 [facility] NRBC auto 0/100wbcs Normal [id number] 0 - 2 [facility] NRBC Abs 0k/uL Normal [id number] 0 - 0.1 [facility] Neutro % 69.2% Normal 559706018111 43 - 75 [facility] Neutro Absolute 2.2k/uL Normal [id number] 1.7 - 8.1 [facility] Imm Gran % 8% Above high normal 024947420190 0.1 - 0. 3 [facility] Imm Gran Absolute 0.25k/uL Above high normal 36099121833 8 0.01 - 0.03 [facility] Lymph % 12.4% Below low normal 500488308012 15 - 45 [facility] Lymph Absolute 0.4k/uL Below low normal [id number] 0.6 - 4.9 [facility] [place] % 4.1% Normal [id number] 3 - 12 [facility] Monocyte Abs 0.1k/uL Normal 850118806110 0.1 - 1.3 [facility] Eos % 5.7% Normal [id number] 0 - 6 [facility] Eosinophil Abs 0.2k/uL Normal [id number] 0 - 0.7 [facility] Basophil % 0.6% Normal [id number] 0 - 2 [facility] Basophil Abs 0k/uL Normal [id number] 0 - 0.2 [facility] GFR [facility] [place] 94mL/min/1.73m2 Normal [id number] - [facility] Bili Direct 0.8mg/dL Above high normal 548381537959 0 - 0.3 [facility] Phosphorus Lvl 2.7mg/dL Normal [id number] 2.4 - 5.1 [facility] Magnesium Lvl 1.1mg/dL Below low normal 607114344035 1.6 - 2.6 [facility] Sodium Lvl 137mmol/L Normal [id number] 136 - 145 [facility] Potassium Lvl 4.5mmol/L Normal 415394986309 3.4 - 4.5 [facility] Chloride 110mmol/L Above high normal 430413959645 98 - 107 [facility] CO2 20mmol/L Normal 852493084296 20 - 31 [facility] AGAP 7mmol/L Normal 278446458665 5 - 15 [facility] Glucose Lvl Random 135mg/dL Normal 315831255705 65 - 140 [facility] BUN 26mg/dL Above high normal 130432939661 9 - 23 [facility] Creatinine 0.92mg/dL Normal [id number] 0.6 - 1.1 [facility] Calcium Lvl 8.5mg/dL Below low normal 055356503197 8.7 - 10.4 [facility] Alk Phos 124unit/L Above high normal 681350584606 46 - 116 [facility] AST 22unit/L Normal [id number] 0 - 33 [facility] ALT 44unit/L Normal [id number] 10 - 49 [facility] Total Protein 5.6gm/dL Below low normal 341955247405 5.7 - 8.2 [facility] Albumin Lvl 2.9gm/dL Below low normal [id number] 3.2 - 4. 8 [facility] Globulin 2.7gm/dL Normal 451658007144 1.3 - 4.7 [facility] A/G Ratio 1.1 Normal [id number] 1 - 3.8 [facility] Bili Total 1.2mg/dL Above high normal 488484429367 0.2 - 1. 1 [facility] PTT 26.9sec Normal [id number] 22.2 - 35 [facility] PT 16.5sec Above high normal 630074746195 12.2 - 14.8 [facility] INR 1.3 Above high normal 486129676274 0.8 - 1.2 [facility] Fibrinogen 634mg/dL Above high normal 846208721351 174 - 51 4 [facility] GLUCOMETER 183mg/dL Above high normal 852683875518 65 - 140 [facility] GLUCOMETER 136mg/dL Normal [id number] 65 - 140 [facility] GLUCOMETER 204mg/dL Above high normal 066937981038 65 - 140 [facility] GLUCOMETER 175mg/dL Above high normal 383570853138 65 - 140 [facility] Tacrolimus Lvl 6.8ng/mL Normal [id number] 5 - 19 [facility] GFR [facility] [place] 88mL/min/1.73m2 Normal 635940251499 - [facility] Sodium Lvl 138mmol/L Normal [id number] 136 - 145 [facility] Potassium Lvl 4.1mmol/L Normal [id number] 3.4 - 4.5 [facility] Chloride 110mmol/L Above high normal 553071493834 98 - 107 [facility] CO2 19mmol/L Below low normal 471903923761 20 - 31 [facility] AGAP 9mmol/L Normal 034089502126 5 - 15 [facility] Glucose Lvl Random 123mg/dL Normal 568458590406 65 - 140 [facility] BUN 36mg/dL Above high normal 103021968165 9 - 23 [facility] Creatinine 0.97mg/dL Normal 496258701096 0.6 - 1.1 [facility] Calcium Lvl 8.2mg/dL Below low normal 366213041693 8.7 - 10.4 [facility] Alk Phos 124unit/L Above high normal 797458141099 46 - 116 [facility] AST 21unit/L Normal [id number] 0 - 33 [facility] ALT 38unit/L Normal [id number] 10 - 49 [facility] Total Protein 5.5gm/dL Below low normal 362660077826 5.7 - 8.2 [facility] Albumin Lvl 2.7gm/dL Below low normal 821965119256 3.2 - 4. 8 [facility] Globulin 2.8gm/dL Normal 455400793368 1.3 - 4.7 [facility] A/G Ratio 1 Normal [id number] 1 - 3.8 [facility] Bili Total 1.3mg/dL Above high normal 004998705170 0.2 - 1. 1 [facility] Magnesium Lvl 1.2mg/dL Below low normal 099571995853 1.6 - 2.6 [facility] Bili Direct 0.8mg/dL Above high normal 671110633827 0 - 0.3 [facility] Phosphorus Lvl 2.6mg/dL Normal 228318804875 2.4 - 5.1 [facility] PTT 26.1sec Normal 345596307656 22.2 - 35 [facility] PT 16.9sec Above high normal 498807491718 12.2 - 14.8 [facility] INR 1.4 Above high normal 633900917559 0.8 - 1.2 [facility] Fibrinogen 585mg/dL Above high normal 408131836741 174 - 51 4 [facility] WBC 4.09k/uL Normal 091948425671 4 - 10.8 [facility] RBC 2.51million/uL Below low normal 479379349790 4.2 - 5.5 [facility] Hgb 7.3gm/dL Below low normal [id number] 12.5 - 16.5 [facility] Hct 22% Below low normal 296473775843 37.5 - 49.5 [facility] MCV 87.6FL Normal 910586848418 81 - 100 [facility] MCH 29.1pg Normal [id number] 27 - 31 [facility] MCHC 33.2gm/dL Normal [id number] 31 - 36 [facility] RDW 15.9% Above high normal [id number] 11.5 - 15.5 [facility] Platelet 61k/uL Below low normal [id number] 145 - 400 [facility] MPV 10.4FL Normal [id number] 7.5 - 10.4 [facility] NRBC auto 0/100wbcs Normal 524331160955 0 - 2 [facility] NRBC Abs 0k/uL Normal [id number] 0 - 0.1 [facility] Neutro % 80.1% Above high normal 812828432432 43 - 75 [facility] Neutro Absolute 3.3k/uL Normal [id number] 1.7 - 8.1 [facility] Imm Gran % 1.7% Above high normal 555507017532 0.1 - 0. 3 [facility] Imm Gran Absolute 0.07k/uL Above high normal 02106685743 9 0.01 - 0.03 [facility] Lymph % 8.3% Below low normal 410490019862 15 - 45 [facility] Lymph Absolute 0.3k/uL Below low normal 572439121246 0.6 - 4.9 [facility] [place] % 4.6% Normal [id number] 3 - 12 [facility] Monocyte Abs 0.2k/uL Normal 140204190809 0.1 - 1.3 [facility] Eos % 5.1% Normal 545778686812 0 - 6 [facility] Eosinophil Abs 0.2k/uL Normal [id number] 0 - 0.7 [facility] Basophil % 0.2% Normal 719138356459 0 - 2 [facility] Basophil Abs 0k/uL Normal 418559957694 0 - 0.2 [facility] GLUCOMETER 138mg/dL Normal 613379011521 65 - 140 [facility] GLUCOMETER 160mg/dL Above high normal 893219043645 65 - 140 [facility] GLUCOMETER 237mg/dL Above high normal 878627371205 65 - 140 [facility] GLUCOMETER 231mg/dL Above high normal 403611213804 65 - 140 [facility] Segs Man 92% Above high normal 440847380543 43 - 75 [facility] Lymph Man 2% Below low normal 870584005346 15 - 45 [facility] Monocyte Man 1% Below low normal 756861250183 3 - 12 [facility] Eos Man 4% Normal 043765922707 0 - 6 [facility] Basophil Man 2% Normal [id number] 0 - 2 [facility] Neut Abs Count 5.9k/uL Normal 525223651431 1.7 - 8.1 [facility] Anisocyte Abnormal 730496879406 [facility] Polychrom Abnormal 233810020427 [facility] RBC Morph Normal 467441341146 - [facility] Platelet Est Abnormal 262945738456 - [facility] Ovalocytes Abnormal 232201791875 [facility] Poik Abnormal 439328282299 [facility] Hypochrom Abnormal 197985927083 [facility] Schistocyte Abnormal 734137430733 [facility] Microcyte Abnormal 579617875138 [facility] pH Art 7.48 Above high normal 683327497175 7.35 - 7.45 [facility] pCO2 Art 22.4mmHg Below low normal 673975265191 35 - 45 [facility] pO2 Art 70.6mmHg Below low normal 352045500246 83 - 108 [facility] TCO2 Art 16mmol/L Below low normal 862450114532 22 - 30 [facility] HCO3 Art 16.7mmol/L Below low normal 775208378218 - [facility] Base Ex/Def Art -6.8mmol/L Below low normal 955548064481 - 2 [facility] O2 Sat Calc Art 95.6% Normal 068873711039 95 - 100 [facility] Sodium Lvl 136mmol/L Below low normal 831631182424 137 - 145 [facility] Potassium Lvl 4.1mmol/L Normal 292478037301 3.5 - 5.1 [facility] Chloride 110mmol/L Above high normal 339653245669 98 - 107 [facility] AGAP 11mmol/L Normal 899644117915 5 - 15 [facility] Glucose Lvl Random 140mg/dL Normal 819925290776 65 - 140 [facility] BUN 49mg/dL Above high normal 406172400169 9 - 20 [facility] Creatinine 0.98mg/dL Normal 265592639418 0.66 - 1.5 [facility] Calcium Ionized 1.24mmol/L Normal [id number] 1.12 - 1.32 [facility] Hct 23% Below low normal 266698591489 37.5 - 49.5 [facility] Hgb 7.7gm/dL Below low normal 067103297201 12.5 - 16.5 [facility] Lactic Acid Lvl 1.8mmol/L Normal 740948764432 0.7 - 2 [facility] GLUCOMETER 175mg/dL Above high normal 732567856478 65 - 140 [facility] Tacrolimus Lvl 6.7ng/mL Normal 615427684352 5 - 19 [facility] GFR [facility] [place] 73mL/min/1.73m2 Normal 861707892544 - [facility] Sodium Lvl 137mmol/L Normal 745249865165 136 - 145 [facility] Potassium Lvl 4.2mmol/L Normal 418876051646 3.4 - 4.5 [facility] Chloride 108mmol/L Above high normal 872510157141 98 - 107 [facility] CO2 19mmol/L Below low normal 978671561963 20 - 31 [facility] AGAP 10mmol/L Normal [id number] 5 - 15 [facility] Glucose Lvl Random 165mg/dL Above high normal 796940168418 65 - 140 [facility] BUN 49mg/dL Above high normal 408359679723 9 - 23 [facility] Creatinine 1.13mg/dL Above high normal [id number] 0.6 - 1. 1 [facility] Calcium Lvl 8.3mg/dL Below low normal 066457030264 8.7 - 10.4 [facility] Alk Phos 139unit/L Above high normal [id number] 46 - 116 [facility] AST 17unit/L Normal [id number] 0 - 33 [facility] ALT 38unit/L Normal [id number] 10 - 49 [facility] Total Protein 5.6gm/dL Below low normal 912026146618 5.7 - 8.2 [facility] Albumin Lvl 2.8gm/dL Below low normal [id number] 3.2 - 4. 8 [facility] Globulin 2.8gm/dL Normal [id number] 1.3 - 4.7 [facility] A/G Ratio 1 Normal [id number] 1 - 3.8 [facility] Bili Total 1.6mg/dL Above high normal [id number] 0.2 - 1. 1 [facility] Bili Direct 1mg/dL Above high normal 503231727771 0 - 0.3 [facility] Phosphorus Lvl 2.7mg/dL Normal [id number] 2.4 - 5.1 [facility] Magnesium Lvl 1.4mg/dL Below low normal [id number] 1.6 - 2.6 [facility] Lactic Acid Lvl 1.4mmol/L Normal [id number] 0.5 - 2.2 [facility] PTT 25.9sec Normal [id number] 22.2 - 35 [facility] PT 16.6sec Above high normal [id number] 12.2 - 14.8 [facility] INR 1.3 Above high normal [id number] 0.8 - 1.2 [facility] Fibrinogen 702mg/dL Above high normal 861171054362 174 - 51 4 [facility] WBC 6.42k/uL Normal [id number] 4 - 10.8 [facility] RBC 2.64million/uL Below low normal 624492201917 4.2 - 5.5 [facility] Hgb 7.7gm/dL Below low normal 207067031295 12.5 - 16.5 [facility] Hct 22.7% Below low normal [id number] 37.5 - 49.5 [facility] MCV 86FL Normal [id number] 81 - 100 [facility] MCH 29.2pg Normal [id number] 27 - 31 [facility] MCHC 33.9gm/dL Normal [id number] 31 - 36 [facility] RDW 15.9% Above high normal [id number] 11.5 - 15.5 [facility] Platelet 64k/uL Below low normal [id number] 145 - 400 [facility] MPV 10.6FL Above high normal [id number] 7.5 - 10.4 [facility] NRBC auto 0/100wbcs Normal [id number] 0 - 2 [facility] NRBC Abs 0k/uL Normal [id number] 0 - 0.1 [facility] Neutro % 85% Above high normal [id number] 43 - 75 [facility] Neutro Absolute 5.5k/uL Normal [id number] 1.7 - 8.1 [facility] Imm Gran % 1.9% Above high normal [id number] 0.1 - 0. 3 [facility] Imm Gran Absolute 0.12k/uL Above high normal 43105957925 8 0.01 - 0.03 [facility] Lymph % 5.8% Below low normal [id number] 15 - 45 [facility] Lymph Absolute 0.4k/uL Below low normal [id number] 0.6 - 4.9 [facility] [place] % 3.1% Normal [id number] 3 - 12 [facility] Monocyte Abs 0.2k/uL Normal 892260950049 0.1 - 1.3 [facility] Eos % 3.9% Normal [id number] 0 - 6 [facility] Eosinophil Abs 0.2k/uL Normal [id number] 0 - 0.7 [facility] Basophil % 0.3% Normal [id number] 0 - 2 [facility] Basophil Abs 0k/uL Normal 464899104459 0 - 0.2 [facility] WBC 6.72k/uL Normal [id number] 4 - 10.8 [facility] RBC 2.55million/uL Below low normal 467040821253 4.2 - 5.5 [facility] Hgb 7.5gm/dL Below low normal [id number] 12.5 - 16.5 [facility] Hct 22.4% Below low normal 593320882141 37.5 - 49.5 [facility] MCV 87.8FL Normal [id number] 81 - 100 [facility] MCH 29.4pg Normal [id number] 27 - 31 [facility] MCHC 33.5gm/dL Normal [id number] 31 - 36 [facility] RDW 16.1% Above high normal 272797743797 11.5 - 15.5 [facility] Platelet 60k/uL Below low normal [id number] 145 - 400 [facility] MPV 10.3FL Normal [id number] 7.5 - 10.4 [facility] NRBC auto 0/100wbcs Normal [id number] 0 - 2 [facility] NRBC Abs 0k/uL Normal 454801924730 0 - 0.1 [facility] GLUCOMETER 189mg/dL Above high normal 817771519220 65 - 140 [facility] pH Art 7.44 Normal 420286288248 7.35 - 7.45 [facility] pCO2 Art 25.3mmHg Below low normal 874235425392 35 - 45 [facility] pO2 Art 84.1mmHg Normal [id number] 83 - 108 [facility] TCO2 Art 17mmol/L Below low normal 768176152755 22 - 30 [facility] HCO3 Art 17.2mmol/L Below low normal [id number] 21 - 28 [facility] Base Ex/Def Art -7.1mmol/L Below low normal 251969522728 - 2 [facility] O2 Sat Calc Art 97% Normal [id number] 95 - 100 [facility] Sodium Lvl 134mmol/L Below low normal 411342263851 137 - 145 [facility] Potassium Lvl 4.2mmol/L Normal 757852805224 3.5 - 5.1 [facility] Chloride 107mmol/L Normal [id number] 98 - 107 [facility] AGAP 11mmol/L Normal 906644410279 5 - 15 [facility] Glucose Lvl Random 186mg/dL Above high normal 633912637611 65 - 140 [facility] BUN 57mg/dL Above high normal 592220003193 9 - 20 [facility] Creatinine 1.19mg/dL Normal 761731978484 0.66 - 1.5 [facility] Calcium Ionized 1.2mmol/L Normal 264368041815 1.12 - 1.32 [facility] Hct 24% Below low normal 123430324472 37.5 - 49.5 [facility] Hgb 8gm/dL Below low normal 945268996005 12.5 - 16.5 [facility] Lactic Acid Lvl 2.3mmol/L Above high normal 508534215428 0.7 - 2 [facility] Temperature Lab 36.8C Normal 475100437625 [facility] GLUCOMETER 201mg/dL Above high normal 467649060692 65 - 140 [facility] GLUCOMETER 222mg/dL Above high normal 125534927566 65 - 140 [facility] WBC 8.58k/uL Normal 919234381708 4 - 10.8 [facility] RBC 2.34million/uL Below low normal 126280009818 4.2 - 5.5 [facility] Hgb 6.7gm/dL Below low normal 994668029631 12.5 - 16.5 [facility] Hct 20.8% Below low normal 533769627892 37.5 - 49.5 [facility] MCV 88.9FL Normal 616264838320 81 - 100 [facility] MCH 28.6pg Normal [id number] 27 - 31 [facility] MCHC 32.2gm/dL Normal [id number] 31 - 36 [facility] RDW 17% Above high normal 908628191721 11.5 - 15.5 [facility] Platelet 51k/uL Below low normal 794323666032 145 - 400 [facility] MPV 10FL Normal [id number] 7.5 - 10.4 [facility] NRBC auto 0/100wbcs Normal [id number] 0 - 2 [facility] NRBC Abs 0k/uL Normal 977517174624 0 - 0.1 [facility] Neutro % 91.6% Above high normal 350845729594 43 - 75 [facility] Neutro Absolute 7.9k/uL Normal 452321059601 1.7 - 8.1 [facility] Imm Gran % 2.8% Above high normal 054421656069 0.1 - 0. 3 [facility] Imm Gran Absolute 0.24k/uL Above high normal 60135426423 9 0.01 - 0.03 [facility] Lymph % 2.6% Below low normal 313094371614 15 - 45 [facility] Lymph Absolute 0.2k/uL Below low normal 188382004511 0.6 - 4.9 [facility] [place] % 2.2% Below low normal 042939653492 3 - 12 [facility] Monocyte Abs 0.2k/uL Normal [id number] 0.1 - 1.3 [facility] Eos % 0.7% Normal [id number] 0 - 6 [facility] Eosinophil Abs 0.1k/uL Normal 041438131305 0 - 0.7 [facility] Basophil % 0.1% Normal [id number] 0 - 2 [facility] Basophil Abs 0k/uL Normal 517965997957 0 - 0.2 [facility] GLUCOMETER 232mg/dL Above high normal 785114083326 65 - 140 [facility] Lactic Acid Lvl 1mmol/L Normal 959018280154 0.5 - 2.2 [facility] pH Art 7.52 Above high normal 021336049930 7.35 - 7.45 [facility] pCO2 Art 23.4mmHg Below low normal 172849460049 35 - 45 [facility] pO2 Art 64.9mmHg Below low normal 658535108533 83 - 108 [facility] TCO2 Art 18mmol/L Below low normal 866552198972 22 - 30 [facility] HCO3 Art 19mmol/L Below low normal 528113409947 21 - 28 [facility] Base Ex/Def Art -4.1mmol/L Below low normal 223021509232 - 2 [facility] O2 Sat Calc Art 95.4% Normal [id number] 95 - 100 [facility] Sodium Lvl 133mmol/L Below low normal 871140172464 137 - 145 [facility] Potassium Lvl 4mmol/L Normal 892437413804 3.5 - 5.1 [facility] Chloride 107mmol/L Normal 120109051410 98 - 107 [facility] AGAP 9mmol/L Normal [id number] 5 - 15 [facility] Glucose Lvl Random 138mg/dL Normal [id number] 65 - 140 [facility] BUN 62mg/dL Above high normal 302403363326 9 - 20 [facility] Creatinine 1.5mg/dL Normal 378094883077 0.66 - 1.5 [facility] Calcium Ionized 1.2mmol/L Normal [id number] 1.12 - 1.32 [facility] Hct 18% Critically low 741697504721 37.5 - 49.5 [facility] Hgb 6.1gm/dL Critically low 817124667655 12.5 - 16.5 [facility] Lactic Acid Lvl <0.7 Below low normal [id number] 0.7 - 2 [facility] Temperature Lab 36.3C Normal 656492235696 M [facility] GLUCOMETER 153mg/dL Above high normal 931048442824 65 - 140 [facility] Lactic Acid Lvl 1mmol/L Normal 723302465748 0.5 - 2.2 [facility] Tacrolimus Lvl 8.6ng/mL Normal [id number] 5 - 19 [facility] Segs Man 92% Above high normal 230399706769 43 - 75 [facility] Lymph Man 1% Below low normal 674724980942 15 - 45 [facility] Monocyte Man 2% Below low normal [id number] 3 - 12 [facility] Eos Man 3% Normal [id number] 0 - 6 [facility] Basophil Man 2% Normal [id number] 0 - 2 [facility] Neut Abs Count 11.3k/uL Above high normal [id number] 1.7 - 8.1 [facility] Polychrom Abnormal 441378783946 [facility] RBC Morph Normal 725588230351 - [facility] Platelet Est Abnormal 663231093167 - [facility] Ovalocytes Abnormal 131947331389 [facility] Poik Abnormal 462291220458 [facility] [place] Cells Abnormal 758687815648 [facility] GFR Center [place] 59mL/min/1.73m2 Below low normal 274829029048 - [facility] Bili Direct 1.2mg/dL Above high normal 799852828730 0 - 0.3 [facility] Phosphorus Lvl 3.5mg/dL Normal 555310906977 2.4 - 5.1 [facility] Sodium Lvl 136mmol/L Normal 522763671309 136 - 145 [facility] Potassium Lvl 4.2mmol/L Normal [id number] 3.4 - 4.5 [facility] Chloride 107mmol/L Normal 823393242023 98 - 107 [facility] CO2 20mmol/L Normal [id number] 20 - 31 [facility] AGAP 9mmol/L Normal 679314051181 5 - 15 [facility] Glucose Lvl Random 132mg/dL Normal 434284753398 65 - 140 [facility] BUN 61mg/dL Above high normal 461421422328 9 - 23 [facility] Creatinine 1.36mg/dL Above high normal 795306154710 0.6 - 1. 1 [facility] Calcium Lvl 8.5mg/dL Below low normal 463851613331 8.7 - 10.4 [facility] Alk Phos 167unit/L Above high normal 670148715875 46 - 116 [facility] AST 27unit/L Normal [id number] 0 - 33 [facility] ALT 51unit/L Above high normal 886876445437 10 - 49 [facility] Total Protein 5.6gm/dL Below low normal 160337804331 5.7 - 8.2 [facility] Albumin Lvl 2.8gm/dL Below low normal 823701952223 3.2 - 4. 8 [facility] Globulin 2.8gm/dL Normal [id number] 1.3 - 4.7 [facility] A/G Ratio 1 Normal [id number] 1 - 3.8 [facility] Bili Total 1.7mg/dL Above high normal 427218412266 0.2 - 1. 1 [facility] Magnesium Lvl 1.7mg/dL Normal [id number] 1.6 - 2.6 [facility] PT 17.4sec Above high normal 011198268358 12.2 - 14.8 [facility] INR 1.4 Above high normal [id number] 0.8 - 1.2 [facility] Fibrinogen 792mg/dL Above high normal 781167981869 174 - 51 4 [facility] PTT 27.2sec Normal [id number] 22.2 - 35 [facility] WBC 12.3k/uL Above high normal 277617320872 4 - 10.8 [facility] RBC 2.43million/uL Below low normal [id number] 4.2 - 5.5 [facility] Hgb 6.9gm/dL Below low normal [id number] 12.5 - 16.5 [facility] Hct 21.1% Below low normal [id number] 37.5 - 49.5 [facility] MCV 86.8FL Normal 411232659410 81 - 100 [facility] MCH 28.4pg Normal [id number] 27 - 31 [facility] MCHC 32.7gm/dL Normal [id number] 31 - 36 [facility] RDW 17.1% Above high normal 568776383514 11.5 - 15.5 [facility] Platelet 72k/uL Below low normal [id number] 145 - 400 [facility] MPV 10.7FL Above high normal 988655405018 7.5 - 10.4 [facility] NRBC auto 0/100wbcs Normal [id number] 0 - 2 [facility] NRBC Abs 0k/uL Normal [id number] 0 - 0.1 [facility] Neutro % 90.4% Above high normal 321446532886 43 - 75 [facility] Neutro Absolute 11.1k/uL Above high normal 970729652883 1.7 - 8.1 [facility] Imm Gran % 1.8% Above high normal 104788759760 0.1 - 0. 3 [facility] Imm Gran Absolute 0.22k/uL Above high normal 91503480415 5 0.01 - 0.03 [facility] Lymph % 3.3% Below low normal [id number] 15 - 45 [facility] Lymph Absolute 0.4k/uL Below low normal [id number] 0.6 - 4.9 [facility] [place] % 2.3% Below low normal [id number] 3 - 12 [facility] Monocyte Abs 0.3k/uL Normal 0.1 - 1.3 [facility] Eos % 2% Normal 0 - 6 [facility] Eosinophil Abs 0.2k/uL Normal 0 - 0.7 [facility] Basophil % 0.2% Normal 0 - 2 [facility] Basophil Abs 0k/uL Normal 0 - 0.2 [facility] pH Art 7.46 Above high normal 558128495155 7.35 - 7.45 [facility] pCO2 Art 24.4mmHg Below low normal 117735757510 35 - 45 [facility] pO2 Art 78.1mmHg Below low normal 884420964305 83 - 108 [facility] TCO2 Art 17mmol/L Below low normal 954479332191 22 - 30 [facility] HCO3 Art 17.2mmol/L Below low normal 693747128293 21 - 28 [facility] Base Ex/Def Art -6.7mmol/L Below low normal 456094009533 - 2 [facility] O2 Sat Calc Art 96.4% Normal [id number] 95 - 100 [facility] Sodium Lvl 135mmol/L Below low normal 514754839411 137 - 145 [facility] Potassium Lvl 4.3mmol/L Normal [id number] 3.5 - 5.1 [facility] Chloride 107mmol/L Normal [id number] 98 - 107 [facility] AGAP 12mmol/L Normal 062472742067 5 - 15 [facility] Glucose Lvl Random 168mg/dL Above high normal 780213843018 65 - 140 [facility] BUN 68mg/dL Above high normal 467075328417 9 - 20 [facility] Creatinine 1.49mg/dL Normal [id number] 0.66 - 1.5 [facility] Calcium Ionized 1.21mmol/L Normal [id number] 1.12 - 1.32 [facility] Hct 42% Normal 983757615412 37.5 - 49.5 [facility] Hgb 14.2gm/dL Normal [id number] 12.5 - 16.5 [facility] Lactic Acid Lvl 2.9mmol/L Above high normal 817960449962 0.7 - 2 [facility] Temperature Lab 37C Normal 968360329019 M [facility] GLUCOMETER 180mg/dL Above high normal 287143384412 65 - 140 [facility] GLUCOMETER 176mg/dL Above high normal 998572065894 65 - 140 [facility] GLUCOMETER 258mg/dL Above high normal 851778100212 65 - 140 [facility] pH Art 7.48 Above high normal 958300381953 7.35 - 7.45 [facility] pCO2 Art 23.1mmHg Below low normal 888410187952 35 - 45 [facility] pO2 Art 72.3mmHg Below low normal 284444107241 83 - 108 [facility] HCO3 Art 17mmol/L Below low normal [id number] 21 - 28 [facility] TCO2 Art 18mmol/L Below low normal 275495410209 22 - 30 [facility] Base Ex/Def Art -6.5mmol/L Below low normal 670551239144 - 2 [facility] O2 Sat Calc Art 95.8% Normal 526537210926 95 - 100 [facility] GLUCOMETER 166mg/dL Above high normal [id number] 65 - 140 [facility] Tacrolimus Lvl 8.2ng/mL Normal [id number] 5 - 19 [facility] WBC 20.65k/uL Above high normal 659575892573 4 - 10.8 [facility] RBC 2.49million/uL Below low normal 245708690700 4.2 - 5.5 [facility] Hgb 7.3gm/dL Below low normal 422518895535 12.5 - 16.5 [facility] Hct 21.5% Below low normal 368882774964 37.5 - 49.5 [facility] MCV 86.3FL Normal [id number] 81 - 100 [facility] MCH 29.3pg Normal [id number] 27 - 31 [facility] MCHC 34gm/dL Normal [id number] 31 - 36 [facility] RDW 17.2% Above high normal 328796840221 11.5 - 15.5 [facility] Platelet 90k/uL Below low normal 620194353298 145 - 400 [facility] MPV 10.8FL Above high normal 038986918025 7.5 - 10.4 [facility] NRBC auto 0/100wbcs Normal [id number] 0 - 2 [facility] NRBC Abs 0k/uL Normal 090626689066 0 - 0.1 [facility] Neutro % 91% Above high normal 058133071462 43 - 75 [facility] Neutro Absolute 18.8k/uL Above high normal 790432086261 1.7 - 8.1 [facility] Imm Gran % 4.1% Above high normal 458853746702 0.1 - 0. 3 [facility] Imm Gran Absolute 0.85k/uL Above high normal 12856705389 4 0.01 - 0.03 [facility] Lymph % 1.7% Below low normal 882998775889 15 - 45 [facility] Lymph Absolute 0.4k/uL Below low normal 011865435545 0.6 - 4.9 [facility] [place] % 1.6% Below low normal 612931901341 3 - 12 [facility] Monocyte Abs 0.3k/uL Normal [id number] 0.1 - 1.3 [facility] Eos % 1.5% Normal [id number] 0 - 6 [facility] Eosinophil Abs 0.3k/uL Normal [id number] 0 - 0.7 [facility] Basophil % 0.1% Normal [id number] 0 - 2 [facility] Basophil Abs 0k/uL Normal [id number] 0 - 0.2 [facility] GFR Center [place] 48mL/min/1.73m2 Below low normal [id number] - [facility] Bili Direct 1.4mg/dL Above high normal 470889716714 0 - 0.3 [facility] Magnesium Lvl 1.8mg/dL Normal 791955919958 1.6 - 2.6 [facility] Phosphorus Lvl 3.6mg/dL Normal [id number] 2.4 - 5.1 [facility] Sodium Lvl 133mmol/L Below low normal 578237020699 136 - 145 [facility] Potassium Lvl 4.2mmol/L Normal [id number] 3.4 - 4.5 [facility] Chloride 107mmol/L Normal [id number] 98 - 107 [facility] CO2 20mmol/L Normal [id number] 20 - 31 [facility] AGAP 6mmol/L Normal 787631525410 5 - 15 [facility] Glucose Lvl Random 152mg/dL Above high normal 867431398020 65 - 140 [facility] BUN 76mg/dL Above high normal 211891858964 9 - 23 [facility] Creatinine 1.62mg/dL Above high normal 441412237169 0.6 - 1. 1 [facility] Calcium Lvl 8.5mg/dL Below low normal 867084001745 8.7 - 10.4 [facility] Alk Phos 178unit/L Above high normal 835748441481 46 - 116 [facility] AST 23unit/L Normal [id number] 0 - 33 [facility] ALT 54unit/L Above high normal 512568791598 10 - 49 [facility] Total Protein 5.6gm/dL Below low normal 618655928250 5.7 - 8.2 [facility] Albumin Lvl 3gm/dL Below low normal [id number] 3.2 - 4. 8 [facility] Globulin 2.6gm/dL Normal 330233814477 1.3 - 4.7 [facility] A/G Ratio 1.2 Normal 271175982916 1 - 3.8 [facility] Bili Total 1.9mg/dL Above high normal 380658303517 0.2 - 1. 1 [facility] Fibrinogen 729mg/dL Above high normal 544433893270 174 - 51 4 [facility] PT 17.1sec Above high normal 281922373370 12.2 - 14.8 [facility] INR 1.4 Above high normal 197176969221 0.8 - 1.2 [facility] PTT 27sec Normal [id number] 22.2 - 35 [facility] Fungitell (1,3)-B-Dglucan Int Positive Abnormal 428916357266 - [facility] Fungitell (1-3)-B-Dglucan >500 Normal [facility] pH Art 7.45 Normal 280979407365 7.35 - 7.45 [facility] pCO2 Art 25.9mmHg Below low normal 636885527172 35 - 45 [facility] pO2 Art 83.2mmHg Normal 813501812935 83 - 108 [facility] TCO2 Art 18mmol/L Below low normal 028772220712 22 - 30 [facility] HCO3 Art 18mmol/L Below low normal 282908566436 21 - 28 [facility] Base Ex/Def Art -6.1mmol/L Below low normal 496593825545 - 2 [facility] O2 Sat Calc Art 97% Normal 495087400445 95 - 100 [facility] Sodium Lvl 132mmol/L Below low normal 311923698311 137 - 145 [facility] Potassium Lvl 4mmol/L Normal 452986533790 3.5 - 5.1 [facility] Chloride 104mmol/L Normal 510062521623 98 - 107 [facility] AGAP 11mmol/L Normal 978128389418 5 - 15 [facility] Glucose Lvl Random 170mg/dL Above high normal 069058956715 65 - 140 [facility] Calcium Ionized 1.19mmol/L Normal 360890593954 1.12 - 1.32 [facility] Hct 19% Critically low 063200552404 37.5 - 49.5 [facility] Hgb 6.5gm/dL Below low normal 362580916035 12.5 - 16.5 [facility] Lactic Acid Lvl 2mmol/L Normal 867242920529 0.7 - 2 [facility] Temperature Lab 36.7C Normal 295073841874 M [facility] WBC 22.96k/uL Above high normal 821055691482 4 - 10.8 [facility] RBC 2.27million/uL Below low normal 249231375071 4.2 - 5.5 [facility] Hgb 6.6gm/dL Below low normal 158258469321 12.5 - 16.5 [facility] Hct 20% Below low normal 092692559697 37.5 - 49.5 [facility] MCV 88.1FL Normal 993882418346 81 - 100 [facility] MCH 29.1pg Normal [id number] 27 - 31 [facility] MCHC 33gm/dL Normal [id number] 31 - 36 [facility] RDW 17.1% Above high normal 647840592236 11.5 - 15.5 [facility] Platelet 90k/uL Below low normal 689838673783 145 - 400 [facility] MPV 10.3FL Normal [id number] 7.5 - 10.4 [facility] NRBC auto 0/100wbcs Normal 475166433049 0 - 2 [facility] NRBC Abs 0k/uL Normal 159050962952 0 - 0.1 [facility] Neutro % 92% Above high normal 832037835687 43 - 75 [facility] Neutro Absolute 21.1k/uL Above high normal [id number] 1.7 - 8.1 [facility] Imm Gran % 4.8% Above high normal 824421562065 0.1 - 0. 3 [facility] Imm Gran Absolute 1.1k/uL Above high normal 63656967285 2 0.01 - 0.03 [facility] Lymph % 1.4% Below low normal [id number] 15 - 45 [facility] Lymph Absolute 0.3k/uL Below low normal 030816337453 0.6 - 4.9 [facility] [place] % 1.4% Below low normal 891235287122 3 - 12 [facility] Monocyte Abs 0.3k/uL Normal [id number] 0.1 - 1.3 [facility] Eos % 0.3% Normal 311062064655 0 - 6 [facility] Eosinophil Abs 0.1k/uL Normal [id number] 0 - 0.7 [facility] Basophil % 0.1% Normal 585284067839 0 - 2 [facility] Basophil Abs 0k/uL Normal 592176716727 0 - 0.2 [facility] GLUCOMETER 201mg/dL Above high normal 861705935529 65 - 140 [facility] pH Art 7.51 Above high normal 411879954900 7.35 - 7.45 [facility] pCO2 Art 24.4mmHg Below low normal 864159436055 35 - 45 [facility] pO2 Art 76mmHg Below low normal 034556852555 83 - 108 [facility] HCO3 Art 19.7mmol/L Below low normal 255543291958 21 - 28 [facility] TCO2 Art 20mmol/L Below low normal 925269813043 22 - 30 [facility] Base Ex/Def Art -3.3mmol/L Below low normal 928702436394 - 2 [facility] O2 Sat Calc Art 96.8% Normal 248384022401 95 - 100 [facility] Lactic Acid Lvl 0.9mmol/L Normal 190424215166 0.7 - 2 [facility] Temperature Lab 36.8C Normal 109947128155 M [facility] GLUCOMETER 189mg/dL Above high normal 891221488028 65 - 140 [facility] GLUCOMETER 172mg/dL Above high normal 949253798710 65 - 140 [facility] Hepatitis B DNA by PCR Quant Normal [id number] - [facility] Hepatitis C RNA by PCR Quant Normal [id number] - [facility] HIV 1 RNA by PCR Quant Normal [id number] - [facility] GLUCOMETER 142mg/dL Above high normal 367317222965 65 - 140 [facility] LINDSEY Poly Gel Int Normal [id number] [facility] AbSc 2C Int Normal [id number] [facility] Testing Site Normal [id number] [facility] ABORh Int O POS Normal [id number] [facility] Ferritin Lvl 2025.4ng/mL Above high normal 587549439021 10 .5 - 307.3 [facility] Vitamin B12 Lvl 1242pg/mL Above high normal 029042973464 211 - 911 [facility] Tacrolimus Lvl 8.1ng/mL Normal [id number] 5 - 19 [facility] GFR Center [place] 43mL/min/1.73m2 Below low normal 332176346967 - [facility] Magnesium Lvl 2mg/dL Normal [id number] 1.6 - 2.6 [facility] Transferrin 91mg/dL Below low normal 510818131781 215 - 36 5 [facility] Phosphorus Lvl 4mg/dL Normal [id number] 2.4 - 5.1 [facility] LDH 354unit/L Above high normal 582895213278 120 - 246 [facility] Sodium Lvl 132mmol/L Below low normal 491524928263 136 - 145 [facility] Potassium Lvl 3.8mmol/L Normal 103740479406 3.4 - 4.5 [facility] Chloride 105mmol/L Normal 911090867579 98 - 107 [facility] CO2 18mmol/L Below low normal 352170679050 20 - 31 [facility] AGAP 9mmol/L Normal [id number] 5 - 15 [facility] Glucose Lvl Random 148mg/dL Above high normal 924262461847 65 - 140 [facility] BUN 79mg/dL Above high normal 798115296009 9 - 23 [facility] Creatinine 1.77mg/dL Above high normal 520817318835 0.6 - 1. 1 [facility] Calcium Lvl 8.4mg/dL Below low normal 517867324985 8.7 - 10.4 [facility] Alk Phos 185unit/L Above high normal 591585482060 46 - 116 [facility] AST 31unit/L Normal 471311597565 0 - 33 [facility] ALT 66unit/L Above high normal 786460659068 10 - 49 [facility] Total Protein 5.5gm/dL Below low normal 588641846002 5.7 - 8.2 [facility] Albumin Lvl 2.9gm/dL Below low normal 374449766869 3.2 - 4. 8 [facility] Globulin 2.6gm/dL Normal 553666202354 1.3 - 4.7 [facility] A/G Ratio 1.1 Normal 167498604782 1 - 3.8 [facility] Bili Total 1.9mg/dL Above high normal 508494104627 0.2 - 1. 1 [facility] Bili Direct 1.4mg/dL Above high normal 867816545616 0 - 0.3 [facility] Haptoglobin 60mg/dL Normal 226026372668 40 - 280 [facility] Iron Lvl 20mcg/dL Below low normal 421847404612 65 - 175 [facility] TIBC 195mcg/dL Below low normal 774822850202 250 - 425 [facility] Iron Sat 10% Below low normal 840618925812 20 - 55 [facility] Folate Lvl 10.1ng/mL Normal 483403784779 5.4 - 48 [facility] WBC 24.52k/uL Above high normal 501725991905 4 - 10.8 [facility] RBC 2.38million/uL Below low normal 586937386998 4.2 - 5.5 [facility] Hgb 7gm/dL Below low normal 923290329136 12.5 - 16.5 [facility] Hct 20.4% Below low normal 109645792190 37.5 - 49.5 [facility] MCV 85.7FL Normal [id number] 81 - 100 [facility] MCH 29.4pg Normal [id number] 27 - 31 [facility] MCHC 34.3gm/dL Normal 783396331963 31 - 36 [facility] RDW 16.8% Above high normal [id number] 11.5 - 15.5 [facility] Platelet 90k/uL Below low normal 797181749638 145 - 400 [facility] MPV 10FL Normal [id number] 7.5 - 10.4 [facility] NRBC auto 0/100wbcs Normal 835162321157 0 - 2 [facility] NRBC Abs 0k/uL Normal 108541308175 0 - 0.1 [facility] Neutro % 92.7% Above high normal [id number] 43 - 75 [facility] Neutro Absolute 22.7k/uL Above high normal [id number] 1.7 - 8.1 [facility] Imm Gran % 3.6% Above high normal [id number] 0.1 - 0. 3 [facility] Imm Gran Absolute 0.88k/uL Above high normal 53987488199 9 0.01 - 0.03 [facility] Lymph % 1.6% Below low normal [id number] 15 - 45 [facility] Lymph Absolute 0.4k/uL Below low normal [id number] 0.6 - 4.9 [facility] [place] % 1% Below low normal [id number] 3 - 12 [facility] Monocyte Abs 0.2k/uL Normal [id number] 0.1 - 1.3 [facility] Eos % 0.9% Normal [id number] 0 - 6 [facility] Eosinophil Abs 0.2k/uL Normal [id number] 0 - 0.7 [facility] Basophil % 0.2% Normal [id number] 0 - 2 [facility] Basophil Abs 0k/uL Normal [id number] 0 - 0.2 [facility] PTT 26.4sec Normal [id number] 22.2 - 35 [facility] Fibrinogen 738mg/dL Above high normal [id number] 174 - 51 4 [facility] PT 16.9sec Above high normal 072496348819 12.2 - 14.8 [facility] INR 1.4 Above high normal [id number] 0.8 - 1.2 [facility] pH Art 7.47 Above high normal [id number] 7.35 - 7.45 [facility] pCO2 Art 24.7mmHg Below low normal 550592415077 35 - 45 [facility] pO2 Art 85.5mmHg Normal [id number] 83 - 108 [facility] TCO2 Art 18mmol/L Below low normal 445442845503 22 - 30 [facility] HCO3 Art 18.1mmol/L Below low normal 460531298967 21 - 28 [facility] Base Ex/Def Art -5.6mmol/L Below low normal 428187535942 - 2 [facility] O2 Sat Calc Art 97.5% Normal 608907218748 95 - 100 [facility] Sodium Lvl 131mmol/L Below low normal 623156221706 137 - 145 [facility] Potassium Lvl 3.7mmol/L Normal [id number] 3.5 - 5.1 [facility] Chloride 104mmol/L Normal [id number] 98 - 107 [facility] AGAP 10mmol/L Normal [id number] 5 - 15 [facility] Glucose Lvl Random 139mg/dL Normal [id number] 65 - 140 [facility] BUN 91mg/dL Above high normal 292722952573 9 - 20 [facility] Creatinine 2.05mg/dL Above high normal 550796842447 0.66 - 1.5 [facility] Calcium Ionized 1.18mmol/L Normal [id number] 1.12 - 1.32 [facility] Hct 29% Below low normal 606046358200 37.5 - 49.5 [facility] Hgb 9.8gm/dL Below low normal 553202304690 12.5 - 16.5 [facility] Lactic Acid Lvl 0.9mmol/L Normal [id number] 0.7 - 2 [facility] Temperature Lab 36.5C Normal 734763192614 [facility] Lactic Acid Lvl 1.5mmol/L Normal [id number] 0.5 - 2.2 [facility] WBC 24.26k/uL Above high normal [id number] 4 - 10.8 [facility] RBC 2.4million/uL Below low normal [id number] 4.2 - 5.5 [facility] Hgb 7.1gm/dL Below low normal 874834341599 12.5 - 16.5 [facility] Hct 20.6% Below low normal [id number] 37.5 - 49.5 [facility] MCV 85.8FL Normal [id number] 81 - 100 [facility] MCH 29.6pg Normal [id number] 27 - 31 [facility] MCHC 34.5gm/dL Normal 905917754831 31 - 36 [facility] RDW 16.7% Above high normal 143435225723 11.5 - 15.5 [facility] Platelet 92k/uL Below low normal 848366197413 145 - 400 [facility] MPV 10.8FL Above high normal 012002850516 7.5 - 10.4 [facility] NRBC auto 0/100wbcs Normal [id number] 0 - 2 [facility] NRBC Abs 0k/uL Normal 764326607412 0 - 0.1 [facility] Neutro % 94.9% Above high normal 144549360897 43 - 75 [facility] Neutro Absolute 23k/uL Above high normal 776310885436 1.7 - 8.1 [facility] Imm Gran % 2.1% Above high normal 629140878433 0.1 - 0. 3 [facility] Imm Gran Absolute 0.51k/uL Above high normal 66099891533 6 0.01 - 0.03 [facility] Lymph % 1.3% Below low normal 973044095750 15 - 45 [facility] Lymph Absolute 0.3k/uL Below low normal 481021128190 0.6 - 4.9 [facility] [place] % 1.3% Below low normal 858348441164 3 - 12 [facility] Monocyte Abs 0.3k/uL Normal [id number] 0.1 - 1.3 [facility] Eos % 0.3% Normal [id number] 0 - 6 [facility] Eosinophil Abs 0.1k/uL Normal 244074108685 0 - 0.7 [facility] Basophil % 0.1% Normal [id number] 0 - 2 [facility] Basophil Abs 0k/uL Normal 487609678887 0 - 0.2 [facility] GLUCOMETER 209mg/dL Above high normal 229834148970 65 - 140 [facility] GLUCOMETER 214mg/dL Above high normal 099839172461 65 - 140 [facility] Segs Man 92% Above high normal 43 - 75 [facility] Band Man 3% Normal 944123781694 0 - 10 [facility] Lymph Man 2% Below low normal 625886735185 15 - 45 [facility] Monocyte Man 1% Below low normal 058817132791 3 - 12 [facility] Eos Man 2% Normal 0 - 6 [facility] Basophil Man 1% Normal 0 - 2 [facility] Neut Abs Count 23.5k/uL Above high normal 832153835635 1.7 - 8.1 [facility] Anisocyte Abnormal [facility] Polychrom Abnormal [facility] RBC Morph Normal 507602159984 - [facility] Platelet Est Abnormal 303265899162 - [facility] Tear Cell Abnormal [facility] Spherocyte Abnormal [facility] Toxic Gran Abnormal [facility] Ovalocytes Abnormal [facility] Poik Abnormal [facility] Macrocyte Abnormal [facility] Toxic Vacuoles Abnormal [facility] Acanthocyte Abnormal [id number] [facility] Microcyte Abnormal [facility] Oskar Cells Abnormal [facility] WBC 24.76k/uL Above high normal 503930015202 4 - 10.8 [facility] RBC 2.37million/uL Below low normal 630502396903 4.2 - 5.5 [facility] Hgb 7gm/dL Below low normal 590411689821 12.5 - 16.5 [facility] Hct 20.3% Below low normal 554239182951 37.5 - 49.5 [facility] MCV 85.7FL Normal [id number] 81 - 100 [facility] MCH 29.5pg Normal [id number] 27 - 31 [facility] MCHC 34.5gm/dL Normal [id number] 31 - 36 [facility] RDW 16.2% Above high normal 378383603696 11.5 - 15.5 [facility] Platelet 97k/uL Below low normal 027241517944 145 - 400 [facility] MPV 10.3FL Normal 400412515815 7.5 - 10.4 [facility] NRBC auto 0/100wbcs Normal 898628047902 0 - 2 [facility] NRBC Abs 0k/uL Normal 048222152489 0 - 0.1 [facility] Neutro % 94.1% Above high normal 970470923923 43 - 75 [facility] Neutro Absolute 23.3k/uL Above high normal [id number] 1.7 - 8.1 [facility] Imm Gran % 2.7% Above high normal 263013048080 0.1 - 0. 3 [facility] Imm Gran Absolute 0.66k/uL Above high normal 39995054159 4 0.01 - 0.03 [facility] Lymph % 1% Below low normal 868603044486 15 - 45 [facility] Lymph Absolute 0.2k/uL Below low normal 776946600664 0.6 - 4.9 [facility] [place] % 1% Below low normal 981754904884 3 - 12 [facility] Monocyte Abs 0.2k/uL Normal 651485010466 0.1 - 1.3 [facility] Eos % 1.1% Normal [id number] 0 - 6 [facility] Eosinophil Abs 0.3k/uL Normal 685552061753 0 - 0.7 [facility] Basophil % 0.1% Normal 259761593274 0 - 2 [facility] Basophil Abs 0k/uL Normal 372210811149 0 - 0.2 [facility] pH Art 7.48 Above high normal 121452313513 7.35 - 7.45 [facility] pCO2 Art 21.8mmHg Below low normal 383484964290 35 - 45 [facility] pO2 Art 63.4mmHg Below low normal 628631351349 83 - 108 [facility] TCO2 Art 16mmol/L Below low normal 842790505272 22 - 30 [facility] HCO3 Art 16.3mmol/L Below low normal 711436627721 21 - 28 [facility] Base Ex/Def Art -7.2mmol/L Below low normal 021852239413 - 2 [facility] O2 Sat Calc Art 94.5% Below low normal 326763517480 95 - 100 [facility] Sodium Lvl 129mmol/L Below low normal 439199814211 137 - 145 [facility] Potassium Lvl 3.5mmol/L Normal 755425464655 3.5 - 5.1 [facility] Chloride 101mmol/L Normal 441911609613 98 - 107 [facility] AGAP 13mmol/L Normal [id number] 5 - 15 [facility] Glucose Lvl Random 212mg/dL Above high normal 369401069175 65 - 140 [facility] BUN 90mg/dL Above high normal 150840533577 9 - 20 [facility] Creatinine 1.95mg/dL Above high normal 311331991092 0.66 - 1.5 [facility] Calcium Ionized 1.13mmol/L Normal 580845563335 1.12 - 1.32 [facility] Hct 23% Below low normal 581344747134 37.5 - 49.5 [facility] Hgb 7.7gm/dL Below low normal 171058625213 12.5 - 16.5 [facility] Lactic Acid Lvl 1.8mmol/L Normal 752102287083 0.7 - 2 [facility] Temperature Lab 36.5C Normal 125029409613 M [facility] BG FIO2 21 Normal 207157103044 [facility] GLUCOMETER 180mg/dL Above high normal 312772678583 65 - 140 [facility] GLUCOMETER 143mg/dL Above high normal 866435523245 65 - 140 [facility] Tacrolimus Lvl 9.3ng/mL Normal [id number] 5 - 19 [facility] GFR Center [place] 36mL/min/1.73m2 Below low normal [id number] - [facility] Sodium Lvl 129mmol/L Below low normal 316356251170 136 - 145 [facility] Potassium Lvl 3.3mmol/L Below low normal 854076470161 3.4 - 4.5 [facility] Chloride 101mmol/L Normal [id number] 98 - 107 [facility] CO2 19mmol/L Below low normal 692367388662 20 - 31 [facility] AGAP 9mmol/L Normal 578409837840 5 - 15 [facility] Glucose Lvl Random 158mg/dL Above high normal 759386923910 65 - 140 [facility] BUN 95mg/dL Above high normal 248091950880 9 - 23 [facility] Creatinine 2.07mg/dL Above high normal 265443977835 0.6 - 1. 1 [facility] Calcium Lvl 8.1mg/dL Below low normal 071765542988 8.7 - 10.4 [facility] Alk Phos 182unit/L Above high normal 537002103302 46 - 116 [facility] AST 34unit/L Above high normal 507949899623 0 - 33 [facility] ALT 73unit/L Above high normal [id number] 10 - 49 [facility] Total Protein 5.5gm/dL Below low normal 163008568303 5.7 - 8.2 [facility] Albumin Lvl 2.9gm/dL Below low normal 645241034156 3.2 - 4. 8 [facility] Globulin 2.6gm/dL Normal 896466557063 1.3 - 4.7 [facility] A/G Ratio 1.1 Normal 443187510629 1 - 3.8 [facility] Bili Total 1.7mg/dL Above high normal 028359708558 0.2 - 1. 1 [facility] Phosphorus Lvl 4.9mg/dL Normal 454685761404 2.4 - 5.1 [facility] Magnesium Lvl 2.2mg/dL Normal 068418768665 1.6 - 2.6 [facility] Bili Direct 1.3mg/dL Above high normal 360119768489 0 - 0.3 [facility] PTT 23.5sec Normal 886773731369 22.2 - 35 [facility] Fibrinogen 743mg/dL Above high normal 338160446461 174 - 51 4 [facility] PT 16.9sec Above high normal 774372609282 12.2 - 14.8 [facility] INR 1.4 Above high normal 853237654216 0.8 - 1.2 [facility] WBC 23.7k/uL Above high normal 999723556410 4 - 10.8 [facility] RBC 2.18million/uL Below low normal 192617456219 4.2 - 5.5 [facility] Hgb 6.6gm/dL Below low normal 876177027908 12.5 - 16.5 [facility] Hct 19.7% Critically low 547642324684 37.5 - 49.5 [facility] MCV 90.4FL Normal 465566335940 81 - 100 [facility] MCH 30.3pg Normal [id number] 27 - 31 [facility] MCHC 33.5gm/dL Normal [id number] 31 - 36 [facility] RDW 15.9% Above high normal [id number] 11.5 - 15.5 [facility] Platelet 107k/uL Below low normal [id number] 145 - 400 [facility] MPV 9.9FL Normal 160536317440 7.5 - 10.4 [facility] NRBC auto 0/100wbcs Normal [id number] 0 - 2 [facility] NRBC Abs 0k/uL Normal [id number] 0 - 0.1 [facility] Neutro % 90.7% Above high normal 535955909859 43 - 75 [facility] Neutro Absolute 21.5k/uL Above high normal 291910926913 1.7 - 8.1 [facility] Imm Gran % 4.4% Above high normal 436384995570 0.1 - 0. 3 [facility] Imm Gran Absolute 1.05k/uL Above high normal 30900160523 3 0.01 - 0.03 [facility] Lymph % 1.6% Below low normal 136690132549 15 - 45 [facility] Lymph Absolute 0.4k/uL Below low normal 180543143434 0.6 - 4.9 [facility] [place] % 1.6% Below low normal 508758780983 3 - 12 [facility] Monocyte Abs 0.4k/uL Normal [id number] 0.1 - 1.3 [facility] Eos % 1.6% Normal [id number] 0 - 6 [facility] Eosinophil Abs 0.4k/uL Normal 867310786884 0 - 0.7 [facility] Basophil % 0.1% Normal [id number] 0 - 2 [facility] Basophil Abs 0k/uL Normal 521170651877 0 - 0.2 [facility] GLUCOMETER 176mg/dL Above high normal 995688903708 65 - 140 [facility] GLUCOMETER 190mg/dL Above high normal 132413064930 65 - 140 [facility] GLUCOMETER 202mg/dL Above high normal [id number] 65 - 140 [facility] Testing Site Normal [id number] [facility] ABORh Int O POS Normal [id number] [facility] AbSc 2C Int Normal 756551913934 [facility] GLUCOMETER 237mg/dL Above high normal 277686698391 65 - 140 [facility] GLUCOMETER 136mg/dL Normal 686897966497 65 - 140 [facility] pH Art 7.52 Above high normal 599890936321 7.35 - 7.45 [facility] pCO2 Art 20.8mmHg Critically low 391948135849 35 - 45 [facility] pO2 Art 65.9mmHg Below low normal 357503185793 83 - 108 [facility] TCO2 Art 16mmol/L Below low normal 704121385069 22 - 30 [facility] HCO3 Art 16.9mmol/L Below low normal 036018726760 21 - 28 [facility] Base Ex/Def Art -6.1mmol/L Below low normal 427198227517 - 2 [facility] O2 Sat Calc Art 95.5% Normal [id number] 95 - 100 [facility] Sodium Lvl 127mmol/L Below low normal 439804746328 137 - 145 [facility] Potassium Lvl 2.9mmol/L Below low normal 259265418159 3.5 - 5.1 [facility] Chloride 101mmol/L Normal 063275072345 98 - 107 [facility] AGAP 11mmol/L Normal [id number] 5 - 15 [facility] Glucose Lvl Random 129mg/dL Normal 830118706802 65 - 140 [facility] BUN 93mg/dL Above high normal 953521356204 9 - 20 [facility] Creatinine 2.42mg/dL Above high normal 385908882487 0.66 - 1.5 [facility] Calcium Ionized 1.12mmol/L Normal [id number] 1.12 - 1.32 [facility] Hct 29% Below low normal 198393719866 37.5 - 49.5 [facility] Hgb 10gm/dL Below low normal 087066028604 12.5 - 16.5 [facility] Lactic Acid Lvl 0.7mmol/L Normal 406099487226 0.7 - 2 [facility] Temperature Lab 36.5C Normal 639905565694 M [facility] GFR Center [place] 34mL/min/1.73m2 Below low normal 231037686143 - [facility] Sodium Lvl 127mmol/L Below low normal [id number] 136 - 145 [facility] Potassium Lvl 3.3mmol/L Below low normal 309941361203 3.4 - 4.5 [facility] Chloride 98mmol/L Normal [id number] 98 - 107 [facility] CO2 19mmol/L Below low normal 249887392880 20 - 31 [facility] AGAP 10mmol/L Normal 697604027242 5 - 15 [facility] Glucose Lvl Random 151mg/dL Above high normal 796925415227 65 - 140 [facility] BUN 94mg/dL Above high normal 234045840714 9 - 23 [facility] Creatinine 2.13mg/dL Above high normal 099529678054 0.6 - 1. 1 [facility] Calcium Lvl 8.2mg/dL Below low normal 734327988702 8.7 - 10.4 [facility] Alk Phos 200unit/L Above high normal 319906398639 46 - 116 [facility] AST 44unit/L Above high normal 664867935096 0 - 33 [facility] ALT 91unit/L Above high normal 888783545937 10 - 49 [facility] Total Protein 5.4gm/dL Below low normal 090560684535 5.7 - 8.2 [facility] Albumin Lvl 2.8gm/dL Below low normal 767457359749 3.2 - 4. 8 [facility] Globulin 2.6gm/dL Normal 514524239544 1.3 - 4.7 [facility] A/G Ratio 1.1 Normal 774640510498 1 - 3.8 [facility] Bili Total 2mg/dL Above high normal 644052305933 0.2 - 1. 1 [facility] Tacrolimus Lvl 10.8ng/mL Normal 843941511562 5 - 19 [facility] Bili Direct 1.6mg/dL Above high normal 466700883358 0 - 0.3 [facility] Magnesium Lvl 2.2mg/dL Normal [id number] 1.6 - 2.6 [facility] Phosphorus Lvl 5.3mg/dL Above high normal 976356791469 2.4 - 5.1 [facility] Fibrinogen 854mg/dL Above high normal 755691187589 174 - 51 4 [facility] PT 16.8sec Above high normal 258379442689 12.2 - 14.8 [facility] INR 1.3 Above high normal 277935974012 0.8 - 1.2 [facility] PTT 22.5sec Normal 059344340514 22.2 - 35 [facility] WBC 26.47k/uL Above high normal [id number] 4 - 10.8 [facility] RBC 2.34million/uL Below low normal 471469310507 4.2 - 5.5 [facility] Hgb 7.1gm/dL Below low normal 478059889605 12.5 - 16.5 [facility] Hct 20.8% Below low normal 576160580271 37.5 - 49.5 [facility] MCV 88.9FL Normal 491230995943 81 - 100 [facility] MCH 30.3pg Normal [id number] 27 - 31 [facility] MCHC 34.1gm/dL Normal [id number] 31 - 36 [facility] RDW 15.7% Above high normal [id number] 11.5 - 15.5 [facility] Platelet 124k/uL Below low normal 631200294527 145 - 400 [facility] MPV 10.4FL Normal 511430595015 7.5 - 10.4 [facility] NRBC auto 0/100wbcs Normal [id number] 0 - 2 [facility] NRBC Abs 0k/uL Normal 897707271175 0 - 0.1 [facility] Neutro % 88.1% Above high normal 593435807806 43 - 75 [facility] Neutro Absolute 23.3k/uL Above high normal 436416950785 1.7 - 8.1 [facility] Imm Gran % 6.9% Above high normal 487345064079 0.1 - 0. 3 [facility] Imm Gran Absolute 1.83k/uL Above high normal 81534008794 5 0.01 - 0.03 [facility] Lymph % 1.8% Below low normal 328148506792 15 - 45 [facility] Lymph Absolute 0.5k/uL Below low normal 518613584587 0.6 - 4.9 [facility] [place] % 1.5% Below low normal 511185357179 3 - 12 [facility] Monocyte Abs 0.4k/uL Normal 374641398181 0.1 - 1.3 [facility] Eos % 1.5% Normal [id number] 0 - 6 [facility] Eosinophil Abs 0.4k/uL Normal 933661587525 0 - 0.7 [facility] Basophil % 0.2% Normal 546862016871 0 - 2 [facility] Basophil Abs 0k/uL Normal 500964358806 0 - 0.2 [facility] GLUCOMETER 148mg/dL Above high normal 628610398409 65 - 140 [facility] pH Art 7.53 Above high normal 735317449152 7.35 - 7.45 [facility] pCO2 Art 22.1mmHg Below low normal 288194939865 35 - 45 [facility] pO2 Art 66.9mmHg Below low normal 430154709049 83 - 108 [facility] HCO3 Art 18.4mmol/L Below low normal 123857290542 21 - 28 [facility] TCO2 Art 19mmol/L Below low normal 490067410799 22 - 30 [facility] Base Ex/Def Art -4.3mmol/L Below low normal 760704874426 - 2 [facility] O2 Sat Calc Art 95.5% Normal 495321244641 95 - 100 [facility] GLUCOMETER 168mg/dL Above high normal 293276880754 65 - 140 [facility] GLUCOMETER 208mg/dL Above high normal 652892721270 65 - 140 [facility] pH Art 7.52 Above high normal 459747431547 7.35 - 7.45 [facility] pCO2 Art 22.5mmHg Below low normal 494729204971 35 - 45 [facility] pO2 Art 82.8mmHg Below low normal 045365604173 83 - 108 [facility] TCO2 Art 18mmol/L Below low normal 220320073596 22 - 30 [facility] HCO3 Art 18.6mmol/L Below low normal 584467070337 21 - 28 [facility] Base Ex/Def Art -4.3mmol/L Below low normal 037068020899 - 2 [facility] O2 Sat Calc Art 97.7% Normal 345665542549 95 - 100 [facility] Sodium Lvl 124mmol/L Below low normal 683457552233 137 - 145 [facility] Potassium Lvl 3.3mmol/L Below low normal 923564313222 3.5 - 5.1 [facility] Chloride 101mmol/L Normal 442391233647 98 - 107 [facility] AGAP 6mmol/L Normal 170101902769 5 - 15 [facility] Glucose Lvl Random 169mg/dL Above high normal 964578917658 65 - 140 [facility] BUN 94mg/dL Above high normal 450528205377 9 - 20 [facility] Creatinine 2.58mg/dL Above high normal 626716510030 0.66 - 1.5 [facility] Calcium Ionized 1.16mmol/L Normal 825019951835 1.12 - 1.32 [facility] Hct 19% Critically low 962381487256 37.5 - 49.5 [facility] Hgb 6.5gm/dL Below low normal 728667751258 12.5 - 16.5 [facility] Lactic Acid Lvl 1.9mmol/L Normal 429290973092 0.7 - 2 [facility] Temperature Lab 36.6C Normal 694788058474 M [facility] GLUCOMETER 199mg/dL Above high normal 243351196205 65 - 140 [facility] U Osmolality 452mOsm/kg Normal 725644458195 300 - 900 [facility] U Sodium 11mmol/L Normal 035171266144 [facility] U Potassium 20.2mmol/L Normal 024615322470 [facility] U Chloride <20 Normal [id number] [facility] GLUCOMETER 160mg/dL Above high normal 891077435926 65 - 140 [facility] Tacrolimus Lvl 12ng/mL Normal 619705971273 5 - 19 [facility] WBC 26.51k/uL Above high normal 223278831738 4 - 10.8 [facility] RBC 2.56million/uL Below low normal 730426677857 4.2 - 5.5 [facility] Hgb 7.6gm/dL Below low normal 203259690606 12.5 - 16.5 [facility] Hct 22.8% Below low normal 461010462448 37.5 - 49.5 [facility] MCV 89.1FL Normal 814823116441 81 - 100 [facility] MCH 29.7pg Normal 350086815477 27 - 31 [facility] MCHC 33.3gm/dL Normal 396730834632 31 - 36 [facility] RDW 15.8% Above high normal 693916589956 11.5 - 15.5 [facility] Platelet 148k/uL Normal 240740983751 145 - 400 [facility] MPV 10.5FL Above high normal 193621185318 7.5 - 10.4 [facility] NRBC auto 0/100wbcs Normal 191645906352 0 - 2 [facility] NRBC Abs 0k/uL Normal 411646055428 0 - 0.1 [facility] Neutro % 86.6% Above high normal 674194841972 43 - 75 [facility] Neutro Absolute 23k/uL Above high normal 762952156510 1.7 - 8.1 [facility] Imm Gran % 7.9% Above high normal 798257279941 0.1 - 0. 3 [facility] Imm Gran Absolute 2.1k/uL Above high normal 52688836926 3 0.01 - 0.03 [facility] Lymph % 2.1% Below low normal 768318367504 15 - 45 [facility] Lymph Absolute 0.6k/uL Normal 066116958049 0.6 - 4.9 [facility] [place] % 1.5% Below low normal 619898009208 3 - 12 [facility] Monocyte Abs 0.4k/uL Normal 488110383831 0.1 - 1.3 [facility] Eos % 1.7% Normal 846877009389 0 - 6 [facility] Eosinophil Abs 0.4k/uL Normal 797549826759 0 - 0.7 [facility] Basophil % 0.2% Normal 652558593240 0 - 2 [facility] Basophil Abs 0k/uL Normal 496561849526 0 - 0.2 [facility] GFR Center [place] 39mL/min/1.73m2 Below low normal 735528728710 - [facility] Sodium Lvl 127mmol/L Below low normal 964469753211 136 - 145 [facility] Potassium Lvl 3.3mmol/L Below low normal 235816309476 3.4 - 4.5 [facility] Chloride 97mmol/L Below low normal 263624850422 98 - 107 [facility] CO2 20mmol/L Normal 524312625326 20 - 31 [facility] AGAP 10mmol/L Normal 786712052955 5 - 15 [facility] Glucose Lvl Random 161mg/dL Above high normal 391982101805 65 - 140 [facility] BUN 80mg/dL Above high normal 164957497764 9 - 23 [facility] Creatinine 1.93mg/dL Above high normal 764074891901 0.6 - 1. 1 [facility] Calcium Lvl 8.4mg/dL Below low normal 732492111962 8.7 - 10.4 [facility] Alk Phos 222unit/L Above high normal 762948475035 46 - 116 [facility] AST 104unit/L Above high normal 979950360476 0 - 33 [facility] ALT 126unit/L Above high normal 172200058503 10 - 49 [facility] Total Protein 5.6gm/dL Below low normal 728078952523 5.7 - 8.2 [facility] Albumin Lvl 3gm/dL Below low normal 958579807680 3.2 - 4. 8 [facility] Globulin 2.6gm/dL Normal [id number] 1.3 - 4.7 [facility] A/G Ratio 1.2 Normal 282334759932 1 - 3.8 [facility] Bili Total 3.7mg/dL Above high normal 540260852372 0.2 - 1. 1 [facility] Bili Direct 3.1mg/dL Above high normal 244522531159 0 - 0.3 [facility] Phosphorus Lvl 4.1mg/dL Normal 952987672726 2.4 - 5.1 [facility] Magnesium Lvl 2.2mg/dL Normal 612533342457 1.6 - 2.6 [facility] PT 17.1sec Above high normal 138649207427 12.2 - 14.8 [facility] INR 1.4 Above high normal 457679550096 0.8 - 1.2 [facility] PTT 27.4sec Normal 780986621712 22.2 - 35 [facility] Fibrinogen 794mg/dL Above high normal 208121766428 174 - 51 4 [facility] pH Art 7.56 Above high normal 346068393371 7.35 - 7.45 [facility] pCO2 Art 22.3mmHg Below low normal 274377698665 35 - 45 [facility] pO2 Art 76mmHg Below low normal 632702553768 83 - 108 [facility] TCO2 Art 19mmol/L Below low normal 335327692016 22 - 30 [facility] HCO3 Art 20mmol/L Below low normal 386554163736 21 - 28 [facility] Base Ex/Def Art -2.3mmol/L Below low normal 431520519276 - 2 [facility] O2 Sat Calc Art 97.3% Normal 874520053546 95 - 100 [facility] Sodium Lvl 125mmol/L Below low normal 888604791963 137 - 145 [facility] Potassium Lvl 3.3mmol/L Below low normal 052466333611 3.5 - 5.1 [facility] Chloride 96mmol/L Below low normal 579331759535 98 - 107 [facility] AGAP 11mmol/L Normal 942630607862 5 - 15 [facility] Glucose Lvl Random 140mg/dL Normal 548097043799 65 - 140 [facility] BUN 85mg/dL Above high normal 483006573912 9 - 20 [facility] Creatinine 2.32mg/dL Above high normal 274019984792 0.66 - 1.5 [facility] Calcium Ionized 1.15mmol/L Normal 203572987391 1.12 - 1.32 [facility] Hct 21% Below low normal 202077631409 37.5 - 49.5 [facility] Hgb 7gm/dL Below low normal 037332975963 12.5 - 16.5 [facility] Lactic Acid Lvl 1.2mmol/L Normal 913729976488 0.7 - 2 [facility] Temperature Lab 36.5C Normal 520682017832 M [facility] GLUCOMETER 184mg/dL Above high normal 390165773354 65 - 140 [facility] GFR Center [place] 39mL/min/1.73m2 Below low normal 163773617184 - [facility] Sodium Lvl 129mmol/L Below low normal 045589784568 136 - 145 [facility] Potassium Lvl 3.6mmol/L Normal 987462018912 3.4 - 4.5 [facility] Chloride 98mmol/L Normal 564868088677 98 - 107 [facility] CO2 19mmol/L Below low normal 060152085770 20 - 31 [facility] AGAP 12mmol/L Normal 771453873510 5 - 15 [facility] Glucose Lvl Random 241mg/dL Above high normal 732703199400 65 - 140 [facility] BUN 80mg/dL Above high normal 344809961720 9 - 23 [facility] Creatinine 1.93mg/dL Above high normal 859219166709 0.6 - 1. 1 [facility] Calcium Lvl 8.2mg/dL Below low normal [id number] 8.7 - 10.4 [facility] Alk Phos 208unit/L Above high normal 513045272598 46 - 116 [facility] AST 71unit/L Above high normal 993328954079 0 - 33 [facility] ALT 95unit/L Above high normal [id number] 10 - 49 [facility] Total Protein 5.2gm/dL Below low normal 162176284317 5.7 - 8.2 [facility] Albumin Lvl 2.9gm/dL Below low normal [id number] 3.2 - 4. 8 [facility] Globulin 2.3gm/dL Normal [id number] 1.3 - 4.7 [facility] A/G Ratio 1.3 Normal [id number] 1 - 3.8 [facility] Bili Total 2.3mg/dL Above high normal [id number] 0.2 - 1. 1 [facility] WBC 23.09k/uL Above high normal 719707562998 4 - 10.8 [facility] RBC 2.37million/uL Below low normal [id number] 4.2 - 5.5 [facility] Hgb 7.3gm/dL Below low normal [id number] 12.5 - 16.5 [facility] Hct 20.6% Below low normal 309909218516 37.5 - 49.5 [facility] MCV 86.9FL Normal [id number] 81 - 100 [facility] MCH 30.8pg Normal [id number] 27 - 31 [facility] MCHC 35.4gm/dL Normal [id number] 31 - 36 [facility] RDW 15.6% Above high normal 171294012508 11.5 - 15.5 [facility] Platelet 127k/uL Below low normal [id number] 145 - 400 [facility] MPV 10.6FL Above high normal 295738228250 7.5 - 10.4 [facility] NRBC auto 0/100wbcs Normal [id number] 0 - 2 [facility] NRBC Abs 0k/uL Normal [id number] 0 - 0.1 [facility] Neutro % 88.8% Above high normal 611906859726 43 - 75 [facility] Neutro Absolute 20.5k/uL Above high normal 298819595822 1.7 - 8.1 [facility] Imm Gran % 5.9% Above high normal 054863051314 0.1 - 0. 3 [facility] Imm Gran Absolute 1.36k/uL Above high normal 81980598025 2 0.01 - 0.03 [facility] Lymph % 1.9% Below low normal [id number] 15 - 45 [facility] Lymph Absolute 0.4k/uL Below low normal 130088333998 0.6 - 4.9 [facility] [place] % 1.9% Below low normal [id number] 3 - 12 [facility] Monocyte Abs 0.4k/uL Normal [id number] 0.1 - 1.3 [facility] Eos % 1.4% Normal [id number] 0 - 6 [facility] Eosinophil Abs 0.3k/uL Normal [id number] 0 - 0.7 [facility] Basophil % 0.1% Normal 160787411129 0 - 2 [facility] Basophil Abs 0k/uL Normal [id number] 0 - 0.2 [facility] pH Art 7.56 Above high normal 239443221993 7.35 - 7.45 [facility] pCO2 Art 22.7mmHg Below low normal 721680137645 35 - 45 [facility] pO2 Art 92.3mmHg Normal [id number] 83 - 108 [facility] TCO2 Art 20mmol/L Below low normal [id number] 22 - 30 [facility] HCO3 Art 20.3mmol/L Below low normal [id number] 21 - 28 [facility] Base Ex/Def Art -1.9mmol/L Normal 878976994563 - 2 [facility] O2 Sat Calc Art 98.4% Normal 319419278802 95 - 100 [facility] Sodium Lvl 126mmol/L Below low normal 063867320322 137 - 145 [facility] Potassium Lvl 3.5mmol/L Normal 558208750114 3.5 - 5.1 [facility] Chloride 96mmol/L Below low normal 092141882417 98 - 107 [facility] AGAP 11mmol/L Normal [id number] 5 - 15 [facility] Glucose Lvl Random 230mg/dL Above high normal 099863821113 65 - 140 [facility] BUN 82mg/dL Above high normal 9 - 20 [facility] Creatinine 2.06mg/dL Above high normal 564218571639 0.66 - 1.5 [facility] Calcium Ionized 1.16mmol/L Normal 717202496137 1.12 - 1.32 [facility] Hct 20% Below low normal 508830133855 37.5 - 49.5 [facility] Hgb 6.9gm/dL Below low normal 346403985329 12.5 - 16.5 [facility] Lactic Acid Lvl 2.5mmol/L Above high normal 346822320627 0.7 - 2 [facility] Temperature Lab 36.8C Normal 401628343393 [facility] GLUCOMETER 262mg/dL Above high normal 773622992063 65 - 140 [facility] GLUCOMETER 152mg/dL Above high normal 540971914985 65 - 140 [facility] Tacrolimus Lvl 8ng/mL Normal 878965899661 5 - 19 [facility] GFR Center [place] 37mL/min/1.73m2 Below low normal 938420976452 - [facility] Magnesium Lvl 2.3mg/dL Normal 030222393533 1.6 - 2.6 [facility] Bili Direct 1.2mg/dL Above high normal 795572186312 0 - 0.3 [facility] Phosphorus Lvl 3.7mg/dL Normal 035076743757 2.4 - 5.1 [facility] Sodium Lvl 130mmol/L Below low normal 613965838659 136 - 145 [facility] Potassium Lvl 3.3mmol/L Below low normal 472695537642 3.4 - 4.5 [facility] Chloride 101mmol/L Normal 282763124918 98 - 107 [facility] CO2 20mmol/L Normal 545285082586 20 - 31 [facility] AGAP 9mmol/L Normal 957222680841 5 - 15 [facility] Glucose Lvl Random 184mg/dL Above high normal 116904546592 65 - 140 [facility] BUN 63mg/dL Above high normal 428152246747 9 - 23 [facility] Creatinine 2.02mg/dL Above high normal 883557355637 0.6 - 1. 1 [facility] Calcium Lvl 8.4mg/dL Below low normal 091092611595 8.7 - 10.4 [facility] Alk Phos 209unit/L Above high normal 773713369262 46 - 116 [facility] AST 44unit/L Above high normal 594958960156 0 - 33 [facility] ALT 86unit/L Above high normal 202842024451 10 - 49 [facility] Total Protein 5.3gm/dL Below low normal 468625228915 5.7 - 8.2 [facility] Albumin Lvl 3.1gm/dL Below low normal 679539045846 3.2 - 4. 8 [facility] Globulin 2.2gm/dL Normal [id number] 1.3 - 4.7 [facility] A/G Ratio 1.4 Normal 528384385195 1 - 3.8 [facility] Bili Total 1.7mg/dL Above high normal 766521796660 0.2 - 1. 1 [facility] WBC 25.54k/uL Above high normal 863635632657 4 - 10.8 [facility] RBC 2.49million/uL Below low normal 132862963185 4.2 - 5.5 [facility] Hgb 7.7gm/dL Below low normal 524964554701 12.5 - 16.5 [facility] Hct 22.4% Below low normal 162529810033 37.5 - 49.5 [facility] MCV 90FL Normal 538724302769 81 - 100 [facility] MCH 30.9pg Normal 486240113480 27 - 31 [facility] MCHC 34.4gm/dL Normal 261319918816 31 - 36 [facility] RDW 15.9% Above high normal 554440906338 11.5 - 15.5 [facility] Platelet 149k/uL Normal 217853395414 145 - 400 [facility] MPV 10.7FL Above high normal 817706231144 7.5 - 10.4 [facility] NRBC auto 0/100wbcs Normal 927043554843 0 - 2 [facility] NRBC Abs 0k/uL Normal 756873139926 0 - 0.1 [facility] Neutro % 84.8% Above high normal 039052519245 43 - 75 [facility] Neutro Absolute 21.7k/uL Above high normal 915816474966 1.7 - 8.1 [facility] Imm Gran % 7.3% Above high normal 649962783355 0.1 - 0. 3 [facility] Imm Gran Absolute 1.86k/uL Above high normal 68281616043 0 0.01 - 0.03 [facility] Lymph % 2.7% Below low normal 771626442863 15 - 45 [facility] Lymph Absolute 0.7k/uL Normal 930799321430 0.6 - 4.9 [facility] [place] % 2% Below low normal 848209533009 3 - 12 [facility] Monocyte Abs 0.5k/uL Normal 926620689076 0.1 - 1.3 [facility] Eos % 3% Normal 975835387558 0 - 6 [facility] Eosinophil Abs 0.8k/uL Above high normal 037427660490 0 - 0.7 [facility] Basophil % 0.2% Normal [id number] 0 - 2 [facility] Basophil Abs 0k/uL Normal 0 - 0.2 [facility] PTT 28.8sec Normal 978170019082 22.2 - 35 [facility] PT 16.6sec Above high normal 212951365186 12.2 - 14.8 [facility] INR 1.3 Above high normal 344777148619 0.8 - 1.2 [facility] Fibrinogen 684mg/dL Above high normal 044460186873 174 - 51 4 [facility] pH Art 7.55 Above high normal 741147791184 7.35 - 7.45 [facility] pCO2 Art 25.8mmHg Below low normal 625702313212 35 - 45 [facility] pO2 Art 94.7mmHg Normal 842372890587 83 - 108 [facility] TCO2 Art 22mmol/L Normal [id number] 22 - 30 [facility] HCO3 Art 22.8mmol/L Normal 926310472505 21 - 28 [facility] Base Ex/Def Art 0.4mmol/L Normal [id number] - 2 [facility] O2 Sat Calc Art 98.5% Normal 010713524137 95 - 100 [facility] Sodium Lvl 128mmol/L Below low normal 470306913667 137 - 145 [facility] Potassium Lvl 3.1mmol/L Below low normal 846809622222 3.5 - 5.1 [facility] Chloride 98mmol/L Normal 957703036762 98 - 107 [facility] AGAP 9mmol/L Normal 746894401340 5 - 15 [facility] Glucose Lvl Random 175mg/dL Above high normal 740149593679 65 - 140 [facility] BUN 81mg/dL Above high normal 412529592214 9 - 20 [facility] Creatinine 2.25mg/dL Above high normal 959671934804 0.66 - 1.5 [facility] Calcium Ionized 1.18mmol/L Normal 346381231172 1.12 - 1.32 [facility] Hct 22% Below low normal 097198477494 37.5 - 49.5 [facility] Hgb 7.4gm/dL Below low normal 922497945763 12.5 - 16.5 [facility] Lactic Acid Lvl 1.2mmol/L Normal 208890663980 0.7 - 2 [facility] Temperature Lab 36.8C Normal 708516860827 [facility] BG FIO2 45 Normal [id number] [facility] Fungitell (1,3)-B-Dglucan Int Indeterminate Abnormal 401015050941 - [facility] Fungitell (1-3)-B-Dglucan 61pg/mL Normal 816233889563 [facility] GLUCOMETER 224mg/dL Above high normal 844507644057 65 - 140 [facility] UA Spec Grav 1.02 Normal 683146340783 1.003 - 1.03 [facility] UA pH 5 Normal 342883281866 5 - 8.5 [facility] UA RBC >182 Above high normal 156433891349 0 - 4 [facility] UA WBC 7/hpf Above high normal 131012286519 0 - 5 [facility] UA Squam Epi 1/hpf Normal [id number] 0 - 5 [facility] UA Hyal Cast 11/lpf Above high normal 379413497805 0 - 1 [facility] UA Clarity Abnormal 490027891914 - [facility] UA Bili Normal - [facility] UA Nitrite Normal 471563624637 - [facility] UA Urobilinogen Normal - M [facility] UA Leuk Est Normal - [facility] UA Protein 100mg/dL Abnormal - [facility] UA Glucose Normal - [facility] UA Blood Abnormal - [facility] UA Ketones Normal - [facility] UA Bacteria Normal - [facility] UA Color Abnormal - [facility] UA Ascorbic Acid Normal - [facility] UA Mucous Normal - [facility] GFR [facility] [place] 38mL/min/1.73m2 Below low normal [id number] - [facility] Sodium Lvl 134mmol/L Below low normal 005344421606 136 - 145 [facility] Potassium Lvl 3.4mmol/L Normal [id number] 3.4 - 4.5 [facility] Chloride 102mmol/L Normal 648338321257 98 - 107 [facility] CO2 21mmol/L Normal 20 - 31 [facility] AGAP 11mmol/L Normal [id number] 5 - 15 [facility] Glucose Lvl Random 216mg/dL Above high normal 822500309497 65 - 140 [facility] BUN 72mg/dL Above high normal 192411108607 9 - 23 [facility] Creatinine 1.97mg/dL Above high normal 646650980280 0.6 - 1. 1 [facility] Calcium Lvl 8.4mg/dL Below low normal 391145575652 8.7 - 10.4 [facility] Alk Phos 217unit/L Above high normal 380410123369 46 - 116 [facility] AST 32unit/L Normal 704487585970 0 - 33 [facility] ALT 96unit/L Above high normal 363319223525 10 - 49 [facility] Total Protein 5.4gm/dL Below low normal 447038341762 5.7 - 8.2 [facility] Albumin Lvl 3.2gm/dL Normal 573946109635 3.2 - 4.8 [facility] Globulin 2.2gm/dL Normal [id number] 1.3 - 4.7 [facility] A/G Ratio 1.5 Normal 037185233959 1 - 3.8 [facility] Bili Total 1.6mg/dL Above high normal [id number] 0.2 - 1. 1 [facility] pH Art 7.55 Above high normal 268123331090 7.35 - 7.45 [facility] pCO2 Art 26mmHg Below low normal 952348892935 35 - 45 [facility] pO2 Art 91.5mmHg Normal [id number] 83 - 108 [facility] TCO2 Art 22mmol/L Normal 328010936802 22 - 30 [facility] HCO3 Art 22.9mmol/L Normal [id number] 21 - 28 [facility] Base Ex/Def Art 0.6mmol/L Normal [id number] - 2 [facility] O2 Sat Calc Art 98.2% Normal 232196890204 95 - 100 [facility] Sodium Lvl 128mmol/L Below low normal 687848911326 137 - 145 [facility] Potassium Lvl 3.3mmol/L Below low normal 868819022198 3.5 - 5.1 [facility] Chloride 99mmol/L Normal 239253437214 98 - 107 [facility] AGAP 8mmol/L Normal 821280693958 5 - 15 [facility] Glucose Lvl Random 208mg/dL Above high normal 418849294974 65 - 140 [facility] BUN 82mg/dL Above high normal 479717792594 9 - 20 [facility] Creatinine 2.53mg/dL Above high normal 432824790010 0.66 - 1.5 [facility] Calcium Ionized 1.18mmol/L Normal [id number] 1.12 - 1.32 [facility] Hct 22% Below low normal 875910449165 37.5 - 49.5 [facility] Hgb 7.6gm/dL Below low normal 768676068683 12.5 - 16.5 [facility] Lactic Acid Lvl 1.4mmol/L Normal 595118670501 0.7 - 2 [facility] GLUCOMETER 274mg/dL Above high normal 003847769370 65 - 140 [facility] GFR [facility] [place] 35mL/min/1.73m2 Below low normal 825719121516 - [facility] Sodium Lvl 132mmol/L Below low normal 168331311241 136 - 145 [facility] Potassium Lvl 3.8mmol/L Normal 086013099633 3.4 - 4.5 [facility] Chloride 103mmol/L Normal 055318386802 98 - 107 [facility] CO2 22mmol/L Normal [id number] 20 - 31 [facility] AGAP 7mmol/L Normal 487475943844 5 - 15 [facility] Glucose Lvl Random 222mg/dL Above high normal 206421013479 65 - 140 [facility] BUN 67mg/dL Above high normal 292603835043 9 - 23 [facility] Creatinine 2.1mg/dL Above high normal 242575381915 0.6 - 1. 1 [facility] Calcium Lvl 8.5mg/dL Below low normal 865460627742 8.7 - 10.4 [facility] Alk Phos 215unit/L Above high normal 671520144433 46 - 116 [facility] AST 29unit/L Normal [id number] 0 - 33 [facility] ALT 101unit/L Above high normal 311286398039 10 - 49 [facility] Total Protein 5.2gm/dL Below low normal 581925416768 5.7 - 8.2 [facility] Albumin Lvl 3.1gm/dL Below low normal 933301729608 3.2 - 4. 8 [facility] Globulin 2.1gm/dL Normal [id number] 1.3 - 4.7 [facility] A/G Ratio 1.5 Normal [id number] 1 - 3.8 [facility] Bili Total 1.7mg/dL Above high normal [id number] 0.2 - 1. 1 [facility] GLUCOMETER 240mg/dL Above high normal 789402709049 65 - 140 [facility] GLUCOMETER 153mg/dL Above high normal 597322638190 65 - 140 [facility] GFR [facility] [place] 36mL/min/1.73m2 Below low normal 997101821765 - [facility] Sodium Lvl 136mmol/L Normal 494452144529 136 - 145 [facility] Potassium Lvl 3.7mmol/L Normal 361007496548 3.4 - 4.5 [facility] Chloride 104mmol/L Normal 612358009552 98 - 107 [facility] CO2 22mmol/L Normal [id number] 20 - 31 [facility] AGAP 10mmol/L Normal 764215164717 5 - 15 [facility] Glucose Lvl Random 154mg/dL Above high normal 460746470329 65 - 140 [facility] BUN 58mg/dL Above high normal 153222017810 9 - 23 [facility] Creatinine 2.03mg/dL Above high normal 410921896300 0.6 - 1. 1 [facility] Calcium Lvl 8.6mg/dL Below low normal 783723497890 8.7 - 10.4 [facility] Alk Phos 229unit/L Above high normal 574690603647 46 - 116 [facility] AST 32unit/L Normal 856964463802 0 - 33 [facility] ALT 118unit/L Above high normal 267684434699 10 - 49 [facility] Total Protein 5.4gm/dL Below low normal 186948566790 5.7 - 8.2 [facility] Albumin Lvl 3.1gm/dL Below low normal 016380795259 3.2 - 4. 8 [facility] Globulin 2.3gm/dL Normal 100170691827 1.3 - 4.7 [facility] A/G Ratio 1.3 Normal 750318301226 1 - 3.8 [facility] Bili Total 2.1mg/dL Above high normal [id number] 0.2 - 1. 1 [facility] Magnesium Lvl 2.1mg/dL Normal 263373264847 1.6 - 2.6 [facility] Phosphorus Lvl 3.9mg/dL Normal 408194160912 2.4 - 5.1 [facility] Tacrolimus Lvl 5.4ng/mL Normal 357261865992 5 - 19 [facility] WBC 25.05k/uL Above high normal 727803211020 4 - 10.8 [facility] RBC 2.61million/uL Below low normal 074914498082 4.2 - 5.5 [facility] Hgb 8.1gm/dL Below low normal 477684879441 12.5 - 16.5 [facility] Hct 23.3% Below low normal 029160084250 37.5 - 49.5 [facility] MCV 89.3FL Normal 280768507969 81 - 100 [facility] MCH 31pg Normal [id number] 27 - 31 [facility] MCHC 34.8gm/dL Normal [id number] 31 - 36 [facility] RDW 15.7% Above high normal [id number] 11.5 - 15.5 [facility] Platelet 112k/uL Below low normal 622568494444 145 - 400 [facility] MPV 10.8FL Above high normal 535740844506 7.5 - 10.4 [facility] NRBC auto 0/100wbcs Normal 016734620068 0 - 2 [facility] NRBC Abs 0k/uL Normal [id number] 0 - 0.1 [facility] Neutro % 85.8% Above high normal 555070363139 43 - 75 [facility] Neutro Absolute 21.5k/uL Above high normal [id number] 1.7 - 8.1 [facility] Imm Gran % 7.5% Above high normal 504456161391 0.1 - 0. 3 [facility] Imm Gran Absolute 1.87k/uL Above high normal 41450529410 1 0.01 - 0.03 [facility] Lymph % 2.9% Below low normal 098133333595 15 - 45 [facility] Lymph Absolute 0.7k/uL Normal 415255670973 0.6 - 4.9 [facility] [place] % 2% Below low normal 640709121132 3 - 12 [facility] Monocyte Abs 0.5k/uL Normal 901339739919 0.1 - 1.3 [facility] Eos % 1.6% Normal [id number] 0 - 6 [facility] Eosinophil Abs 0.4k/uL Normal 036613265023 0 - 0.7 [facility] Basophil % 0.2% Normal 255177040191 0 - 2 [facility] Basophil Abs 0k/uL Normal [id number] 0 - 0.2 [facility] PTT 30.6sec Normal 754401788188 22.2 - 35 [facility] Fibrinogen 578mg/dL Above high normal 523277865338 174 - 51 4 [facility] PT 17.6sec Above high normal 088386571534 12.2 - 14.8 [facility] INR 1.4 Above high normal 726814175615 0.8 - 1.2 [facility] pH Art 7.56 Above high normal 915211821494 7.35 - 7.45 [facility] pCO2 Art 27.6mmHg Below low normal 533850849930 35 - 45 [facility] pO2 Art 96.6mmHg Normal 622420183343 83 - 108 [facility] HCO3 Art 24.7mmol/L Normal [id number] 21 - 28 [facility] Base Ex/Def Art 2.4mmol/L Normal 647664502810 - 2 [facility] O2 Sat Calc Art 98.6% Normal 407288798652 95 - 100 [facility] Lactic Acid Lvl 1.1mmol/L Normal 169349726352 0.7 - 2 [facility] Glucose Lvl Random 151mg/dL Above high normal 110788184618 65 - 140 [facility] Temperature Lab 36.8C Normal 106861197021 [facility] BG FIO2 50 Normal [id number] [facility] GLUCOMETER 158mg/dL Above high normal 729749559732 65 - 140 [facility] GLUCOMETER 144mg/dL Above high normal 676319927233 65 - 140 [facility] GLUCOMETER 118mg/dL Normal 474655918017 65 - 140 [facility] GLUCOMETER 120mg/dL Normal 059620478778 65 - 140 [facility] GLUCOMETER 119mg/dL Normal 128788042914 65 - 140 [facility] GLUCOMETER 118mg/dL Normal 076534510442 65 - 140 [facility] WBC 22.92k/uL Above high normal 566404775307 4 - 10.8 [facility] RBC 2.58million/uL Below low normal 569068585828 4.2 - 5.5 [facility] Hgb 8.1gm/dL Below low normal 676385623147 12.5 - 16.5 [facility] Hct 23% Below low normal 239147200126 37.5 - 49.5 [facility] MCV 89.1FL Normal 396844699471 81 - 100 [facility] MCH 31.4pg Above high normal 707750455146 27 - 31 [facility] MCHC 35.2gm/dL Normal 618566844268 31 - 36 [facility] RDW 15.7% Above high normal [id number] 11.5 - 15.5 [facility] Platelet 94k/uL Below low normal 465195674850 145 - 400 [facility] MPV 11FL Above high normal 998648856810 7.5 - 10.4 [facility] NRBC auto 0/100wbcs Normal 785402964178 0 - 2 [facility] NRBC Abs 0k/uL Normal 944780824935 0 - 0.1 [facility] Neutro % 88.4% Above high normal 285382440256 43 - 75 [facility] Neutro Absolute 20.3k/uL Above high normal 367758587444 1.7 - 8.1 [facility] Imm Gran % 6.7% Above high normal 505699973477 0.1 - 0. 3 [facility] Imm Gran Absolute 1.53k/uL Above high normal 85343288731 4 0.01 - 0.03 [facility] Lymph % 2.4% Below low normal 559462605191 15 - 45 [facility] Lymph Absolute 0.5k/uL Below low normal 550362669878 0.6 - 4.9 [facility] [place] % 1.7% Below low normal 535694821845 3 - 12 [facility] Monocyte Abs 0.4k/uL Normal 985538284216 0.1 - 1.3 [facility] Eos % 0.7% Normal 897619391238 0 - 6 [facility] Eosinophil Abs 0.2k/uL Normal 885287624606 0 - 0.7 [facility] Basophil % 0.1% Normal 511014003954 0 - 2 [facility] Basophil Abs 0k/uL Normal 615142989503 0 - 0.2 [facility] GFR [facility] [place] 42mL/min/1.73m2 Below low normal 230266647564 - [facility] Bili Direct 1.3mg/dL Above high normal 384926226634 0 - 0.3 [facility] Phosphorus Lvl 3.2mg/dL Normal 242417620434 2.4 - 5.1 [facility] Sodium Lvl 137mmol/L Normal 996631846215 136 - 145 [facility] Potassium Lvl 3.6mmol/L Normal 060244459556 3.4 - 4.5 [facility] Chloride 106mmol/L Normal 354725213958 98 - 107 [facility] CO2 22mmol/L Normal 659664237965 20 - 31 [facility] AGAP 9mmol/L Normal 862081781106 5 - 15 [facility] Glucose Lvl Random 156mg/dL Above high normal 695722223495 65 - 140 [facility] BUN 49mg/dL Above high normal 840590222361 9 - 23 [facility] Creatinine 1.81mg/dL Above high normal 595314337941 0.6 - 1. 1 [facility] Calcium Lvl 8.7mg/dL Normal 770911432877 8.7 - 10.4 [facility] Alk Phos 243unit/L Above high normal 601609250634 46 - 116 [facility] AST 31unit/L Normal 937023351877 0 - 33 [facility] ALT 143unit/L Above high normal 925679647555 10 - 49 [facility] Total Protein 5.4gm/dL Below low normal 268643748804 5.7 - 8.2 [facility] Albumin Lvl 3.3gm/dL Normal 208381396968 3.2 - 4.8 [facility] Globulin 2.1gm/dL Normal 700876999852 1.3 - 4.7 [facility] A/G Ratio 1.6 Normal [id number] 1 - 3.8 [facility] Bili Total 2mg/dL Above high normal 092252336972 0.2 - 1. 1 [facility] Magnesium Lvl 2.1mg/dL Normal 536033545532 1.6 - 2.6 [facility] GLUCOMETER 148mg/dL Above high normal 236188636525 65 - 140 [facility] Fibrinogen 536mg/dL Above high normal 107548357965 174 - 51 4 [facility] PTT 32.7sec Normal 751934954929 22.2 - 35 [facility] PT 18.4sec Above high normal 098016525882 12.2 - 14.8 [facility] INR 1.5 Above high normal 999164925095 0.8 - 1.2 [facility] pH Art 7.57 Above high normal 880523247587 7.35 - 7.45 [facility] pCO2 Art 26.3mmHg Below low normal 137413186134 35 - 45 [facility] pO2 Art 109.6mmHg Above high normal 446664955693 83 - 108 [facility] HCO3 Art 24.1mmol/L Normal 482925337233 21 - 28 [facility] Base Ex/Def Art 2mmol/L Normal 931822051374 - 2 [facility] O2 Sat Calc Art 99.1% Normal 978676630849 95 - 100 [facility] Lactic Acid Lvl 1.8mmol/L Normal 961754342506 0.7 - 2 [facility] Glucose Lvl Random 161mg/dL Above high normal 765770439276 65 - 140 [facility] Temperature Lab 36.5C Normal 220341219414 [facility] BG FIO2 50 Normal [id number] [facility] GLUCOMETER 170mg/dL Above high normal 857452095443 65 - 140 [facility] GLUCOMETER 195mg/dL Above high normal 205299623726 65 - 140 [facility] Alk Phos 250unit/L Above high normal 380622470762 46 - 116 [facility] AST 31unit/L Normal 903200286775 0 - 33 [facility] ALT 150unit/L Above high normal 043118592589 10 - 49 [facility] Total Protein 5.4gm/dL Below low normal 467963862923 5.7 - 8.2 [facility] Albumin Lvl 3.3gm/dL Normal 107036851232 3.2 - 4.8 [facility] Globulin 2.1gm/dL Normal 466336848282 1.3 - 4.7 [facility] A/G Ratio 1.6 Normal 548110512994 1 - 3.8 [facility] Bili Total 2.2mg/dL Above high normal 617645720402 0.2 - 1. 1 [facility] Bili Direct 1.5mg/dL Above high normal 152604879492 0 - 0.3 [facility] pH Art 7.58 Above high normal 385658909931 7.35 - 7.45 [facility] pCO2 Art 26.5mmHg Below low normal 361152072254 35 - 45 [facility] pO2 Art 100mmHg Normal 792632362034 83 - 108 [facility] TCO2 Art 24mmol/L Normal 584513255511 22 - 30 [facility] HCO3 Art 24.7mmol/L Normal [id number] 21 - 28 [facility] Base Ex/Def Art 2.6mmol/L Normal 746988316951 - 2 [facility] O2 Sat Calc Art 98.8% Normal 183552217062 95 - 100 [facility] Sodium Lvl 135mmol/L Below low normal 757377448172 137 - 145 [facility] Potassium Lvl 3.6mmol/L Normal 074966136650 3.5 - 5.1 [facility] Chloride 102mmol/L Normal 758334163802 98 - 107 [facility] AGAP 10mmol/L Normal [id number] 5 - 15 [facility] Calcium Ionized 1.22mmol/L Normal [id number] 1.12 - 1.32 [facility] Hct 22% Below low normal 008475876148 37.5 - 49.5 [facility] Hgb 7.5gm/dL Below low normal 023408745875 12.5 - 16.5 [facility] Lactic Acid Lvl 1.8mmol/L Normal 175483062193 0.7 - 2 [facility] Temperature Lab 36.4C Normal 000380591584 [facility] BG FIO2 50 Normal 064015275948 [facility] Alk Phos 250unit/L Above high normal 185541629178 46 - 116 [facility] AST 33unit/L Normal 000545370429 0 - 33 [facility] ALT 159unit/L Above high normal 466083817460 10 - 49 [facility] Total Protein 5.3gm/dL Below low normal 272180843319 5.7 - 8.2 [facility] Albumin Lvl 3.3gm/dL Normal 691286617802 3.2 - 4.8 [facility] Globulin 2gm/dL Normal 1.3 - 4.7 [facility] A/G Ratio 1.6 Normal 1 - 3.8 [facility] Bili Total 2.2mg/dL Above high normal 055323020585 0.2 - 1. 1 [facility] Bili Direct 1.4mg/dL Above high normal 267740331028 0 - 0.3 [facility] Testing Site Normal [id number] [facility] ABORh Int O POS Normal [facility] AbSc 2C Int Normal [facility] GLUCOMETER 186mg/dL Above high normal [id number] 65 - 140 [facility] GLUCOMETER 202mg/dL Above high normal [id number] 65 - 140 [facility] GFR Center [place] 36mL/min/1.73m2 Below low normal [id number] - [facility] Sodium Lvl 139mmol/L Normal [id number] 136 - 145 [facility] Potassium Lvl 3.5mmol/L Normal 3.4 - 4.5 [facility] Chloride 106mmol/L Normal 98 - 107 [facility] CO2 23mmol/L Normal 20 - 31 [facility] AGAP 10mmol/L Normal 5 - 15 [facility] Glucose Lvl Random 129mg/dL Normal 65 - 140 [facility] BUN 61mg/dL Above high normal [id number] 9 - 23 [facility] Creatinine 2.03mg/dL Above high normal [id number] 0.6 - 1. 1 [facility] Calcium Lvl 8.4mg/dL Below low normal [id number] 8.7 - 10.4 [facility] Phosphorus Lvl 3.1mg/dL Normal 2.4 - 5.1 [facility] Magnesium Lvl 2mg/dL Normal 1.6 - 2.6 [facility] WBC 21.22k/uL Above high normal [id number] 4 - 10.8 [facility] RBC 2.57million/uL Below low normal [id number] 4.2 - 5.5 [facility] Hgb 8gm/dL Below low normal [id number] 12.5 - 16.5 [facility] Hct 22.8% Below low normal [id number] 37.5 - 49.5 [facility] MCV 88.7FL Normal [id number] 81 - 100 [facility] MCH 31.1pg Above high normal [id number] 27 - 31 [facility] MCHC 35.1gm/dL Normal 31 - 36 [facility] RDW 15.2% Normal 11.5 - 15.5 [facility] Platelet 95k/uL Below low normal [id number] 145 - 400 [facility] MPV 10.7FL Above high normal [id number] 7.5 - 10.4 [facility] NRBC auto 0/100wbcs Normal [id number] 0 - 2 [facility] NRBC Abs 0.1k/uL Normal [id number] 0 - 0.1 [facility] Neutro % 87.4% Above high normal [id number] 43 - 75 [facility] Neutro Absolute 18.6k/uL Above high normal [id number] 1.7 - 8.1 [facility] Imm Gran % 7.2% Above high normal [id number] 0.1 - 0. 3 [facility] Imm Gran Absolute 1.52k/uL Above high normal [id number] 5 0.01 - 0.03 [facility] Lymph % 2.4% Below low normal [id number] 15 - 45 [facility] Lymph Absolute 0.5k/uL Below low normal [id number] 0.6 - 4.9 [facility] [place] % 1.6% Below low normal [id number] 3 - 12 [facility] Monocyte Abs 0.3k/uL Normal 0.1 - 1.3 [facility] Eos % 1.3% Normal 0 - 6 [facility] Eosinophil Abs 0.3k/uL Normal 0 - 0.7 [facility] Basophil % 0.1% Normal 0 - 2 [facility] Basophil Abs 0k/uL Normal 0 - 0.2 [facility] GLUCOMETER 144mg/dL Above high normal [id number] 65 - 140 [facility] pH Art 7.58 Above high normal 7.35 - 7.45 [facility] pCO2 Art 26.5mmHg Below low normal 35 - 45 [facility] pO2 Art 101.3mmHg Normal 83 - 108 [facility] TCO2 Art 24mmol/L Normal 22 - 30 [facility] HCO3 Art 25.1mmol/L Normal 21 - 28 [facility] Base Ex/Def Art 3.2mmol/L Above high normal - 2 [facility] O2 Sat Calc Art 98.9% Normal [id number] 95 - 100 [facility] Sodium Lvl 136mmol/L Below low normal 758752349911 137 - 145 [facility] Potassium Lvl 3.4mmol/L Below low normal 689068224252 3.5 - 5.1 [facility] Chloride 102mmol/L Normal [id number] 98 - 107 [facility] AGAP 11mmol/L Normal [id number] 5 - 15 [facility] Calcium Ionized 1.21mmol/L Normal 075918666264 1.12 - 1.32 [facility] Hct 22% Below low normal 656389498806 37.5 - 49.5 [facility] Hgb 7.4gm/dL Below low normal 511159867943 12.5 - 16.5 [facility] Lactic Acid Lvl 1.4mmol/L Normal [id number] 0.7 - 2 [facility] Temperature Lab 36.6C Normal 775348491542 [facility] BG FIO2 40 Normal [id number] [facility] GLUCOMETER 121mg/dL Normal [id number] 65 - 140 [facility] pH Art 7.57 Above high normal 772600629267 7.35 - 7.45 [facility] pCO2 Art 26.8mmHg Below low normal 316129684032 35 - 45 [facility] pO2 Art 77.2mmHg Below low normal [id number] 83 - 108 [facility] TCO2 Art 24mmol/L Normal 442246702239 22 - 30 [facility] HCO3 Art 24.5mmol/L Normal [id number] 21 - 28 [facility] Base Ex/Def Art 2.4mmol/L Normal 066246951707 - 2 [facility] O2 Sat Calc Art 97.3% Normal 499494752808 95 - 100 [facility] Sodium Lvl 137mmol/L Normal [id number] 137 - 145 [facility] Potassium Lvl 3.3mmol/L Below low normal 762900854089 3.5 - 5.1 [facility] Chloride 103mmol/L Normal 001506488551 98 - 107 [facility] AGAP 11mmol/L Normal [id number] 5 - 15 [facility] Glucose Lvl Random 110mg/dL Normal 702773748075 65 - 140 [facility] BUN 68mg/dL Above high normal 179637213851 9 - 20 [facility] Creatinine 2.04mg/dL Above high normal 065347177048 0.66 - 1.5 [facility] Calcium Ionized 1.21mmol/L Normal 121782084576 1.12 - 1.32 [facility] Hct 23% Below low normal 918986011963 37.5 - 49.5 [facility] Hgb 7.9gm/dL Below low normal 377914709766 12.5 - 16.5 [facility] Lactic Acid Lvl 1mmol/L Normal 963957822467 0.7 - 2 [facility] Temperature Lab 36.8C Normal 620183939023 [facility] BG FIO2 40 Normal [id number] [facility] Alk Phos 279unit/L Above high normal 660479984916 46 - 116 [facility] AST 40unit/L Above high normal 297483471615 0 - 33 [facility] ALT 193unit/L Above high normal 752146397827 10 - 49 [facility] Total Protein 5.5gm/dL Below low normal 729506306268 5.7 - 8.2 [facility] Albumin Lvl 3.5gm/dL Normal [id number] 3.2 - 4.8 [facility] Globulin 2gm/dL Normal 617050451402 1.3 - 4.7 [facility] A/G Ratio 1.8 Normal [id number] 1 - 3.8 [facility] Bili Total 2.5mg/dL Above high normal [id number] 0.2 - 1. 1 [facility] Bili Direct 1.6mg/dL Above high normal 904904240549 0 - 0.3 [facility] GLUCOMETER 130mg/dL Normal [id number] 65 - 140 [facility] GFR Center [place] 36mL/min/1.73m2 Below low normal 433978344587 - [facility] Phosphorus Lvl 3.6mg/dL Normal 987598589415 2.4 - 5.1 [facility] Magnesium Lvl 2.1mg/dL Normal [id number] 1.6 - 2.6 [facility] Sodium Lvl 136mmol/L Normal [id number] 136 - 145 [facility] Potassium Lvl 3.4mmol/L Normal [id number] 3.4 - 4.5 [facility] Chloride 103mmol/L Normal 976610379414 98 - 107 [facility] CO2 24mmol/L Normal [id number] 20 - 31 [facility] AGAP 9mmol/L Normal [id number] 5 - 15 [facility] Glucose Lvl Random 139mg/dL Normal 692573693313 65 - 140 [facility] BUN 64mg/dL Above high normal 289217914802 9 - 23 [facility] Creatinine 2.05mg/dL Above high normal 089533329291 0.6 - 1. 1 [facility] Calcium Lvl 8.8mg/dL Normal [id number] 8.7 - 10.4 [facility] WBC 20.37k/uL Above high normal 131022604096 4 - 10.8 [facility] RBC 2.7million/uL Below low normal 103893017309 4.2 - 5.5 [facility] Hgb 8.3gm/dL Below low normal 270881242229 12.5 - 16.5 [facility] Hct 24% Below low normal 832174225245 37.5 - 49.5 [facility] MCV 88.9FL Normal [id number] 81 - 100 [facility] MCH 30.7pg Normal 822130040131 27 - 31 [facility] MCHC 34.6gm/dL Normal [id number] 31 - 36 [facility] RDW 15.1% Normal [id number] 11.5 - 15.5 [facility] Platelet 100k/uL Below low normal [id number] 145 - 400 [facility] MPV 11.2FL Above high normal 126189065982 7.5 - 10.4 [facility] NRBC auto 0/100wbcs Normal [id number] 0 - 2 [facility] NRBC Abs 0k/uL Normal 591947851832 0 - 0.1 [facility] Neutro % 89.1% Above high normal 448010928054 43 - 75 [facility] Neutro Absolute 18.2k/uL Above high normal [id number] 1.7 - 8.1 [facility] Imm Gran % 5.1% Above high normal 093035188254 0.1 - 0. 3 [facility] Imm Gran Absolute 1.03k/uL Above high normal 86796541280 1 0.01 - 0.03 [facility] Lymph % 2.8% Below low normal [id number] 15 - 45 [facility] Lymph Absolute 0.6k/uL Normal [id number] 0.6 - 4.9 [facility] [place] % 1.7% Below low normal [id number] 3 - 12 [facility] Monocyte Abs 0.3k/uL Normal [id number] 0.1 - 1.3 [facility] Eos % 1.2% Normal [id number] 0 - 6 [facility] Eosinophil Abs 0.2k/uL Normal [id number] 0 - 0.7 [facility] Basophil % 0.1% Normal 0 - 2 [facility] Basophil Abs 0k/uL Normal 0 - 0.2 [facility] GLUCOMETER 149mg/dL Above high normal 354016778082 65 - 140 [facility] pH Art 7.6 Above high normal 357163877075 7.35 - 7.45 [facility] pCO2 Art 24mmHg Below low normal 595572982616 35 - 45 [facility] pO2 Art 71.6mmHg Below low normal 596499321606 83 - 108 [facility] TCO2 Art 23mmol/L Normal [id number] 22 - 30 [facility] HCO3 Art 23.9mmol/L Normal [id number] 21 - 28 [facility] Base Ex/Def Art 2.2mmol/L Normal [id number] - 2 [facility] O2 Sat Calc Art 97.2% Normal 644260455877 95 - 100 [facility] Sodium Lvl 134mmol/L Below low normal 133822919894 137 - 145 [facility] Potassium Lvl 3.5mmol/L Normal [id number] 3.5 - 5.1 [facility] Chloride 105mmol/L Normal [id number] 98 - 107 [facility] AGAP 7mmol/L Normal [id number] 5 - 15 [facility] Calcium Ionized 1.19mmol/L Normal 434009307590 1.12 - 1.32 [facility] Hct 22% Below low normal 453917970054 37.5 - 49.5 [facility] Hgb 7.4gm/dL Below low normal [id number] 12.5 - 16.5 [facility] Lactic Acid Lvl 1.2mmol/L Normal [id number] 0.7 - 2 [facility] Temperature Lab 36.4C Normal [id number] [facility] BG FIO2 40 Normal [id number] [facility] Tacrolimus Lvl 4.9ng/mL Below low normal 977014890649 5 - 1 9 [facility] GLUCOMETER 121mg/dL Normal [id number] 65 - 140 [facility] GLUCOMETER 120mg/dL Normal 013214305377 65 - 140 [facility] GLUCOMETER 116mg/dL Normal [id number] 65 - 140 [facility] GFR Center [place] 29mL/min/1.73m2 Below low normal 244348669848 - [facility] Magnesium Lvl 2.1mg/dL Normal [id number] 1.6 - 2.6 [facility] Sodium Lvl 140mmol/L Normal [id number] 136 - 145 [facility] Potassium Lvl 3.6mmol/L Normal 737967140182 3.4 - 4.5 [facility] Chloride 106mmol/L Normal [id number] 98 - 107 [facility] CO2 23mmol/L Normal [id number] 20 - 31 [facility] AGAP 11mmol/L Normal 522498827445 5 - 15 [facility] Glucose Lvl Random 124mg/dL Normal 972749926909 65 - 140 [facility] BUN 73mg/dL Above high normal [id number] 9 - 23 [facility] Creatinine 2.46mg/dL Above high normal 706429817012 0.6 - 1. 1 [facility] Calcium Lvl 8.7mg/dL Normal 572311332862 8.7 - 10.4 [facility] Alk Phos 283unit/L Above high normal [id number] 46 - 116 [facility] AST 44unit/L Above high normal 531097885124 0 - 33 [facility] ALT 213unit/L Above high normal [id number] 10 - 49 [facility] Total Protein 5.5gm/dL Below low normal 822813908808 5.7 - 8.2 [facility] Albumin Lvl 3.5gm/dL Normal [id number] 3.2 - 4.8 [facility] Globulin 2gm/dL Normal 694457222516 1.3 - 4.7 [facility] A/G Ratio 1.8 Normal [id number] 1 - 3.8 [facility] Bili Total 2.2mg/dL Above high normal 358917655680 0.2 - 1. 1 [facility] Bili Direct 1.5mg/dL Above high normal [id number] 0 - 0.3 [facility] Phosphorus Lvl 4.3mg/dL Normal 563276754314 2.4 - 5.1 [facility] PT 18.5sec Above high normal 415070120483 12.2 - 14.8 [facility] INR 1.5 Above high normal 638319177487 0.8 - 1.2 [facility] PTT 32.4sec Normal 234306410717 22.2 - 35 [facility] Fibrinogen 366mg/dL Normal [id number] 174 - 514 [facility] Neutro % Interp See Comment Normal [id number] [facility] WBC 14.05k/uL Above high normal [id number] 4 - 10.8 [facility] RBC 2.42million/uL Below low normal 325306888899 4.2 - 5.5 [facility] Hgb 7.4gm/dL Below low normal 879378645896 12.5 - 16.5 [facility] Hct 21.4% Below low normal 853479030523 37.5 - 49.5 [facility] MCV 88.4FL Normal [id number] 81 - 100 [facility] MCH 30.6pg Normal [id number] 27 - 31 [facility] MCHC 34.6gm/dL Normal [id number] 31 - 36 [facility] RDW 14.5% Normal [id number] 11.5 - 15.5 [facility] Platelet 67k/uL Below low normal 993486882861 145 - 400 [facility] MPV 10.4FL Normal [id number] 7.5 - 10.4 [facility] NRBC auto 0/100wbcs Normal [id number] 0 - 2 [facility] NRBC Abs 0k/uL Normal [id number] 0 - 0.1 [facility] Neutro % 91.8% Above high normal [id number] 43 - 75 [facility] Neutro Absolute 12.9k/uL Above high normal 313459771481 1.7 - 8.1 [facility] Imm Gran % 2.6% Above high normal 722729234646 0.1 - 0. 3 [facility] Imm Gran Absolute 0.37k/uL Above high normal 29375098747 1 0.01 - 0.03 [facility] Lymph % 3% Below low normal [id number] 15 - 45 [facility] Lymph Absolute 0.4k/uL Below low normal 542132866907 0.6 - 4.9 [facility] [place] % 1.9% Below low normal [id number] 3 - 12 [facility] Monocyte Abs 0.3k/uL Normal [id number] 0.1 - 1.3 [facility] Eos % 0.6% Normal [id number] 0 - 6 [facility] Eosinophil Abs 0.1k/uL Normal [id number] 0 - 0.7 [facility] Basophil % 0.1% Normal [id number] 0 - 2 [facility] Basophil Abs 0k/uL Normal [id number] 0 - 0.2 [facility] pH Art 7.55 Above high normal 689733524798 7.35 - 7.45 [facility] pCO2 Art 28.3mmHg Below low normal 326943461658 35 - 45 [facility] pO2 Art 97.9mmHg Normal [id number] 83 - 108 [facility] TCO2 Art 24mmol/L Normal 072035185311 22 - 30 [facility] HCO3 Art 24.9mmol/L Normal [id number] 21 - 28 [facility] Base Ex/Def Art 2.5mmol/L Normal [id number] - 2 [facility] O2 Sat Calc Art 98.5% Normal [id number] 95 - 100 [facility] Sodium Lvl 136mmol/L Below low normal 739494773143 137 - 145 [facility] Potassium Lvl 3.5mmol/L Normal [id number] 3.5 - 5.1 [facility] Chloride 103mmol/L Normal [id number] 98 - 107 [facility] AGAP 10mmol/L Normal [id number] 5 - 15 [facility] Glucose Lvl Random 113mg/dL Normal [id number] 65 - 140 [facility] BUN 76mg/dL Above high normal 301836878638 9 - 20 [facility] Creatinine 2.93mg/dL Above high normal 830605219172 0.66 - 1.5 [facility] Calcium Ionized 1.19mmol/L Normal [id number] 1.12 - 1.32 [facility] Hct 20% Below low normal [id number] 37.5 - 49.5 [facility] Hgb 6.6gm/dL Below low normal 483704418343 12.5 - 16.5 [facility] Lactic Acid Lvl 1.1mmol/L Normal [id number] 0.7 - 2 [facility] GLUCOMETER 133mg/dL Normal [id number] 65 - 140 [facility] GLUCOMETER 149mg/dL Above high normal 052194907102 65 - 140 [facility] GLUCOMETER 154mg/dL Above high normal [id number] 65 - 140 [facility] GFR Center [place] 24mL/min/1.73m2 Below low normal 612803877526 - [facility] Phosphorus Lvl 4.6mg/dL Normal [id number] 2.4 - 5.1 [facility] Sodium Lvl 139mmol/L Normal [id number] 136 - 145 [facility] Potassium Lvl 3.6mmol/L Normal [id number] 3.4 - 4.5 [facility] Chloride 107mmol/L Normal [id number] 98 - 107 [facility] CO2 20mmol/L Normal [id number] 20 - 31 [facility] AGAP 12mmol/L Normal [id number] 5 - 15 [facility] Glucose Lvl Random 166mg/dL Above high normal 404677218110 65 - 140 [facility] BUN 77mg/dL Above high normal [id number] 9 - 23 [facility] Creatinine 2.89mg/dL Above high normal 981496221270 0.6 - 1. 1 [facility] Calcium Lvl 8.3mg/dL Below low normal 536161652311 8.7 - 10.4 [facility] Alk Phos 325unit/L Above high normal 579933538876 46 - 116 [facility] AST 57unit/L Above high normal 672565544652 0 - 33 [facility] ALT 268unit/L Above high normal 819242063616 10 - 49 [facility] Total Protein 5.2gm/dL Below low normal [id number] 5.7 - 8.2 [facility] Albumin Lvl 3.1gm/dL Below low normal 671916419600 3.2 - 4. 8 [facility] Globulin 2.1gm/dL Normal 531081850800 1.3 - 4.7 [facility] A/G Ratio 1.5 Normal 006253649628 1 - 3.8 [facility] Bili Total 2mg/dL Above high normal 684914989946 0.2 - 1. 1 [facility] Bili Direct 1.3mg/dL Above high normal 488531710508 0 - 0.3 [facility] Magnesium Lvl 2.1mg/dL Normal 764618272987 1.6 - 2.6 [facility] Fibrinogen 295mg/dL Normal [id number] 174 - 514 [facility] PT 17.7sec Above high normal 765164093221 12.2 - 14.8 [facility] INR 1.4 Above high normal 631470276545 0.8 - 1.2 [facility] PTT 28.6sec Normal [id number] 22.2 - 35 [facility] GLUCOMETER 168mg/dL Above high normal 198139133836 65 - 140 [facility] Neutro % Interp See Comment Normal [id number] [facility] WBC 19.86k/uL Above high normal 754809190604 4 - 10.8 [facility] RBC 2.67million/uL Below low normal 159001727225 4.2 - 5.5 [facility] Hgb 8.2gm/dL Below low normal 147659489230 12.5 - 16.5 [facility] Hct 23% Below low normal 664868294187 37.5 - 49.5 [facility] MCV 86.1FL Normal [id number] 81 - 100 [facility] MCH 30.7pg Normal [id number] 27 - 31 [facility] MCHC 35.7gm/dL Normal [id number] 31 - 36 [facility] RDW 14.8% Normal [id number] 11.5 - 15.5 [facility] Platelet 95k/uL Below low normal [id number] 145 - 400 [facility] MPV 10.4FL Normal [id number] 7.5 - 10.4 [facility] NRBC auto 1/100wbcs Normal [id number] 0 - 2 [facility] NRBC Abs 0.1k/uL Normal [id number] 0 - 0.1 [facility] Neutro % 91.1% Above high normal [id number] 43 - 75 [facility] Neutro Absolute 18.1k/uL Above high normal 383741948629 1.7 - 8.1 [facility] Imm Gran % 2.4% Above high normal 237420371710 0.1 - 0. 3 [facility] Imm Gran Absolute 0.47k/uL Above high normal 16685075793 3 0.01 - 0.03 [facility] Lymph % 3.3% Below low normal [id number] 15 - 45 [facility] Lymph Absolute 0.7k/uL Normal [id number] 0.6 - 4.9 [facility] [place] % 2.2% Below low normal [id number] 3 - 12 [facility] Monocyte Abs 0.4k/uL Normal 230846846805 0.1 - 1.3 [facility] Eos % 0.9% Normal [id number] 0 - 6 [facility] Eosinophil Abs 0.2k/uL Normal [id number] 0 - 0.7 [facility] Basophil % 0.1% Normal [id number] 0 - 2 [facility] Basophil Abs 0k/uL Normal [id number] 0 - 0.2 [facility] pH Art 7.56 Above high normal 096926409232 7.35 - 7.45 [facility] pCO2 Art 23.8mmHg Below low normal 475795733680 35 - 45 [facility] pO2 Art 74.4mmHg Below low normal 810967061783 83 - 108 [facility] TCO2 Art 20mmol/L Below low normal [id number] 22 - 30 [facility] HCO3 Art 21mmol/L Normal [id number] 21 - 28 [facility] Base Ex/Def Art -1.2mmol/L Normal [id number] - 2 [facility] O2 Sat Calc Art 96.9% Normal 553033777354 95 - 100 [facility] Sodium Lvl 136mmol/L Below low normal 137 - 145 [facility] Potassium Lvl 3.5mmol/L Normal [id number] 3.5 - 5.1 [facility] Chloride 105mmol/L Normal 221354770387 98 - 107 [facility] AGAP 12mmol/L Normal [id number] 5 - 15 [facility] Glucose Lvl Random 156mg/dL Above high normal 331089892971 65 - 140 [facility] BUN 81mg/dL Above high normal 159557507710 9 - 20 [facility] Creatinine 3.07mg/dL Above high normal 289274425202 0.66 - 1.5 [facility] Calcium Ionized 1.14mmol/L Normal 1.12 - 1.32 [facility] Hct 22% Below low normal 709907893729 37.5 - 49.5 [facility] Hgb 7.4gm/dL Below low normal 12.5 - 16.5 [facility] Lactic Acid Lvl 3mmol/L Above high normal 0.7 - 2 [facility] GLUCOMETER 189mg/dL Above high normal 65 - 140 [facility] UA Spec Grav 1.024 Normal 891491788512 1.003 - 1.03 [facility] UA pH 5 Normal 525726242209 5 - 8.5 [facility] UA RBC >182 Above high normal 157735810725 0 - 4 [facility] UA WBC 12/hpf Above high normal 665371719113 0 - 5 [facility] UA Squam Epi 1/hpf Normal 539652074678 0 - 5 [facility] UA Hyal Cast 22/lpf Above high normal 982914109055 0 - 1 [facility] UA Gran Cast 3/lpf Above high normal 848975224992 - [facility] UA Clarity Abnormal 782294692303 - [facility] UA Bili Normal [id number] - [facility] UA Nitrite Normal [id number] - [facility] UA Urobilinogen Normal 542851908404 - M [facility] UA Leuk Est Normal 144150050434 - [facility] UA Protein 100mg/dL Abnormal 450175806103 - [facility] UA Glucose Normal - [facility] UA Blood Abnormal - [facility] UA Ketones Normal - [facility] UA Bacteria Abnormal - [facility] UA Color Abnormal - [facility] UA Ascorbic Acid 20mg/dL Normal - [facility] UA Mucous Normal - [facility] GLUCOMETER 183mg/dL Above high normal 65 - 140 [facility] GLUCOMETER 190mg/dL Above high normal 65 - 140 [facility] GLUCOMETER 212mg/dL Above high normal 65 - 140 [facility] pH Art 7.54 Above high normal 7.35 - 7.45 [facility] pCO2 Art 23.9mmHg Below low normal 35 - 45 [facility] pO2 Art 99.4mmHg Normal 904034349121 83 - 108 [facility] TCO2 Art 20mmol/L Below low normal 22 - 30 [facility] HCO3 Art 20.4mmol/L Below low normal [id number] 21 - 28 [facility] Base Ex/Def Art -2.3mmol/L Below low normal - 2 [facility] O2 Sat Calc Art 98.6% Normal 404252113824 95 - 100 [facility] Sodium Lvl 137mmol/L Normal [id number] 137 - 145 [facility] Potassium Lvl 3.4mmol/L Below low normal 993423128602 3.5 - 5.1 [facility] Chloride 106mmol/L Normal [id number] 98 - 107 [facility] AGAP 12mmol/L Normal 5 - 15 [facility] Calcium Ionized 1.15mmol/L Normal 185160772614 1.12 - 1.32 [facility] Hct 24% Below low normal 729134372123 37.5 - 49.5 [facility] Hgb 8.1gm/dL Below low normal 152082061159 12.5 - 16.5 [facility] Lactic Acid Lvl 2.6mmol/L Above high normal 043301690624 0.7 - 2 [facility] Temperature Lab 36.8C Normal 364765764366 [facility] BG FIO2 50 Normal [facility] GLUCOMETER 139mg/dL Normal 515096710182 65 - 140 [facility] GFR Center [place] 22mL/min/1.73m2 Below low normal [id number] - [facility] Phosphorus Lvl 5.8mg/dL Above high normal 365390764625 2.4 - 5.1 [facility] Sodium Lvl 137mmol/L Normal [id number] 136 - 145 [facility] Potassium Lvl 3.6mmol/L Normal 573255393674 3.4 - 4.5 [facility] Chloride 108mmol/L Above high normal 268289304601 98 - 107 [facility] CO2 21mmol/L Normal [id number] 20 - 31 [facility] AGAP 8mmol/L Normal [id number] 5 - 15 [facility] Glucose Lvl Random 138mg/dL Normal 837017625360 65 - 140 [facility] BUN 89mg/dL Above high normal 017402349453 9 - 23 [facility] Creatinine 3.05mg/dL Above high normal 003892506675 0.6 - 1. 1 [facility] Calcium Lvl 8.5mg/dL Below low normal 943030683610 8.7 - 10.4 [facility] Magnesium Lvl 2.1mg/dL Normal 019976037021 1.6 - 2.6 [facility] Neutro % Interp See Comment Normal [facility] WBC 15.46k/uL Above high normal 810013249588 4 - 10.8 [facility] RBC 2.83million/uL Below low normal 677846515176 4.2 - 5.5 [facility] Hgb 8.7gm/dL Below low normal 584332202423 12.5 - 16.5 [facility] Hct 24.2% Below low normal 778105908342 37.5 - 49.5 [facility] MCV 85.5FL Normal 194671543215 81 - 100 [facility] MCH 30.7pg Normal 488101518548 27 - 31 [facility] MCHC 36gm/dL Normal [id number] 31 - 36 [facility] RDW 14.6% Normal [id number] 11.5 - 15.5 [facility] Platelet 103k/uL Below low normal 146730752540 145 - 400 [facility] Imm Platelet % 2.4% Normal 521162839602 1.1 - 6.7 [facility] MPV 11.2FL Above high normal 125758703014 7.5 - 10.4 [facility] NRBC auto 1/100wbcs Normal [id number] 0 - 2 [facility] NRBC Abs 0.1k/uL Normal 481164836740 0 - 0.1 [facility] Neutro % 91.1% Above high normal 695194587401 43 - 75 [facility] Neutro Absolute 14.1k/uL Above high normal [id number] 1.7 - 8.1 [facility] Imm Gran % 1.9% Above high normal 120934207980 0.1 - 0. 3 [facility] Imm Gran Absolute 0.29k/uL Above high normal 02508048617 2 0.01 - 0.03 [facility] Lymph % 3.4% Below low normal 921738377302 15 - 45 [facility] Lymph Absolute 0.5k/uL Below low normal 831012972011 0.6 - 4.9 [facility] [place] % 3.2% Normal [id number] 3 - 12 [facility] Monocyte Abs 0.5k/uL Normal [id number] 0.1 - 1.3 [facility] Eos % 0.3% Normal [id number] 0 - 6 [facility] Eosinophil Abs 0k/uL Normal [id number] 0 - 0.7 [facility] Basophil % 0.1% Normal [id number] 0 - 2 [facility] Basophil Abs 0k/uL Normal 844598077201 0 - 0.2 [facility] pH Art 7.52 Above high normal 608440787804 7.35 - 7.45 [facility] pCO2 Art 26.3mmHg Below low normal 978671517564 35 - 45 [facility] pO2 Art 100.9mmHg Normal 387953058049 83 - 108 [facility] TCO2 Art 21mmol/L Below low normal [id number] 22 - 30 [facility] HCO3 Art 21.5mmol/L Normal [id number] 21 - 28 [facility] Base Ex/Def Art -1.5mmol/L Normal [id number] - 2 [facility] O2 Sat Calc Art 98.6% Normal 643477671354 95 - 100 [facility] Sodium Lvl 138mmol/L Normal 882381576957 137 - 145 [facility] Potassium Lvl 3.6mmol/L Normal 869947406519 3.5 - 5.1 [facility] Chloride 108mmol/L Above high normal 105258993281 98 - 107 [facility] AGAP 10mmol/L Normal [id number] 5 - 15 [facility] Calcium Ionized 1.18mmol/L Normal [id number] 1.12 - 1.32 [facility] Hct 24% Below low normal [id number] 37.5 - 49.5 [facility] Hgb 8.2gm/dL Below low normal [id number] 12.5 - 16.5 [facility] Lactic Acid Lvl 1.6mmol/L Normal [id number] 0.7 - 2 [facility] Temperature Lab 36.4C Normal [id number] M [facility] BG FIO2 50 Normal [id number] [facility] GLUCOMETER 154mg/dL Above high normal 947403567410 65 - 140 [facility] pH Art 7.49 Above high normal 426066980889 7.35 - 7.45 [facility] pCO2 Art 27.4mmHg Below low normal [id number] 35 - 45 [facility] pO2 Art 113.7mmHg Above high normal [id number] 83 - 108 [facility] TCO2 Art 20mmol/L Below low normal [id number] 22 - 30 [facility] HCO3 Art 20.8mmol/L Below low normal [id number] 21 - 28 [facility] Base Ex/Def Art -2.7mmol/L Below low normal [id number] - 2 [facility] O2 Sat Calc Art 98.9% Normal [id number] 95 - 100 [facility] Sodium Lvl 138mmol/L Normal [id number] 137 - 145 [facility] Potassium Lvl 3.6mmol/L Normal [id number] 3.5 - 5.1 [facility] Chloride 108mmol/L Above high normal [id number] 98 - 107 [facility] AGAP 11mmol/L Normal [id number] 5 - 15 [facility] Calcium Ionized 1.18mmol/L Normal [id number] 1.12 - 1.32 [facility] Hct 24% Below low normal [id number] 37.5 - 49.5 [facility] Hgb 8.3gm/dL Below low normal [id number] 12.5 - 16.5 [facility] Lactic Acid Lvl 1.6mmol/L Normal [id number] 0.7 - 2 [facility] Temperature Lab 36.5C Normal [id number] M [facility] BG FIO2 50 Normal [id number] [facility] GLUCOMETER 138mg/dL Normal [id number] 65 - 140 [facility] pH Art 7.49 Above high normal 859032265615 7.35 - 7.45 [facility] pCO2 Art 27mmHg Below low normal [id number] 35 - 45 [facility] pO2 Art 94.4mmHg Normal [id number] 83 - 108 [facility] TCO2 Art 20mmol/L Below low normal [id number] 22 - 30 [facility] HCO3 Art 20.5mmol/L Below low normal [id number] 21 - 28 [facility] Base Ex/Def Art -3.1mmol/L Below low normal [id number] - 2 [facility] O2 Sat Calc Art 98.2% Normal [id number] 95 - 100 [facility] Sodium Lvl 139mmol/L Normal [id number] 137 - 145 [facility] Potassium Lvl 3.6mmol/L Normal 506761002417 3.5 - 5.1 [facility] Chloride 111mmol/L Above high normal [id number] 98 - 107 [facility] AGAP 9mmol/L Normal [id number] 5 - 15 [facility] Glucose Lvl Random 114mg/dL Normal [id number] 65 - 140 [facility] Calcium Ionized 1.15mmol/L Normal [id number] 1.12 - 1.32 [facility] Hct 23% Below low normal [id number] 37.5 - 49.5 [facility] Hgb 7.7gm/dL Below low normal 791046979982 12.5 - 16.5 [facility] Lactic Acid Lvl 1.4mmol/L Normal [id number] 0.7 - 2 [facility] Temperature Lab 36.5C Normal [id number] M [facility] BG FIO2 50 Normal [id number] [facility] GLUCOMETER 136mg/dL Normal 092326516308 65 - 140 [facility] WBC 13.47k/uL Above high normal 100507261387 4 - 10.8 [facility] RBC 2.99million/uL Below low normal 762140207477 4.2 - 5.5 [facility] Hgb 9gm/dL Below low normal 680615761802 12.5 - 16.5 [facility] Hct 26.3% Below low normal 512906316504 37.5 - 49.5 [facility] MCV 88FL Normal 452058777218 81 - 100 [facility] MCH 30.1pg Normal 815106562707 27 - 31 [facility] MCHC 34.2gm/dL Normal 390243231225 31 - 36 [facility] RDW 14.8% Normal 207374889156 11.5 - 15.5 [facility] Platelet 105k/uL Below low normal 637926088459 145 - 400 [facility] MPV 10.9FL Above high normal 616527152718 7.5 - 10.4 [facility] NRBC auto 2/100wbcs Normal [id number] 0 - 2 [facility] NRBC Abs 0.2k/uL Above high normal 803442887793 0 - 0.1 [facility] Neutro % 85% Above high normal 503107589040 43 - 75 [facility] Neutro Absolute 11.4k/uL Above high normal 139617728855 1.7 - 8.1 [facility] Imm Gran % 4.9% Above high normal 903150626805 0.1 - 0. 3 [facility] Imm Gran Absolute 0.66k/uL Above high normal 41892448287 1 0.01 - 0.03 [facility] Lymph % 4.5% Below low normal 109529924836 15 - 45 [facility] Lymph Absolute 0.6k/uL Normal 932071545867 0.6 - 4.9 [facility] [place] % 5.3% Normal [id number] 3 - 12 [facility] Monocyte Abs 0.7k/uL Normal 635645652262 0.1 - 1.3 [facility] Eos % 0.1% Normal 472451567281 0 - 6 [facility] Eosinophil Abs 0k/uL Normal 474174202578 0 - 0.7 [facility] Basophil % 0.2% Normal 232906702512 0 - 2 [facility] Basophil Abs 0k/uL Normal 522879512271 0 - 0.2 [facility] Donor [id number] Normal [id number] [facility] XM Type Normal [id number] [facility] XM T Cell Flow Allo - Normal [facility] XM B Cell Flow Allo - Normal [facility] Total cPRA 0 Normal [facility] Class II PRA 0% Normal [facility] Class I PRA 0% Normal [facility] GFR Center [place] 19mL/min/1.73m2 Below low normal 971900346446 - [facility] Magnesium Lvl 2.2mg/dL Normal 362328381577 1.6 - 2.6 [facility] Sodium Lvl 143mmol/L Normal 315622079015 136 - 145 [facility] Potassium Lvl 3.8mmol/L Normal 3.4 - 4.5 [facility] Chloride 107mmol/L Normal [id number] 98 - 107 [facility] CO2 21mmol/L Normal 20 - 31 [facility] AGAP 15mmol/L Normal 904116340148 5 - 15 [facility] Glucose Lvl Random 133mg/dL Normal 219249670348 65 - 140 [facility] BUN 92mg/dL Above high normal 110444419051 9 - 23 [facility] Creatinine 3.55mg/dL Above high normal 517548389773 0.6 - 1. 1 [facility] Calcium Lvl 8.9mg/dL Normal 547821029311 8.7 - 10.4 [facility] Phosphorus Lvl 7.3mg/dL Above high normal 370247566518 2.4 - 5.1 [facility] PTT 25.1sec Normal 336312747309 22.2 - 35 [facility] PT 16.6sec Above high normal 532932600843 12.2 - 14.8 [facility] INR 1.3 Above high normal 087240151367 0.8 - 1.2 [facility] GLUCOMETER 140mg/dL Normal 173008038771 65 - 140 [facility] pH Art 7.47 Above high normal 384796500908 7.35 - 7.45 [facility] pCO2 Art 29.4mmHg Below low normal 524792253621 35 - 45 [facility] pO2 Art 58.4mmHg Below low normal 889578040884 83 - 108 [facility] TCO2 Art 21mmol/L Below low normal 383722299277 22 - 30 [facility] HCO3 Art 21.5mmol/L Normal 565944363286 21 - 28 [facility] Base Ex/Def Art -2.4mmol/L Below low normal 921294058067 - 2 [facility] O2 Sat Calc Art 92.6% Below low normal 677479904069 95 - 100 [facility] Sodium Lvl 138mmol/L Normal 364997143153 137 - 145 [facility] Potassium Lvl 3.7mmol/L Normal 956011426535 3.5 - 5.1 [facility] Chloride 108mmol/L Above high normal 972364770385 98 - 107 [facility] AGAP 10mmol/L Normal 133997216969 5 - 15 [facility] Glucose Lvl Random 113mg/dL Normal 093622946179 65 - 140 [facility] Calcium Ionized 1.16mmol/L Normal 253581990652 1.12 - 1.32 [facility] Hct 25% Below low normal 891759122548 37.5 - 49.5 [facility] Hgb 8.4gm/dL Below low normal 466225385367 12.5 - 16.5 [facility] Lactic Acid Lvl 1.4mmol/L Normal 907666856825 0.7 - 2 M [facility] Temperature Lab 36.4C Normal 377348730303 M [facility] BG FIO2 40 Normal 401754021553 [facility] Tacrolimus Lvl 8ng/mL Normal 992563405654 5 - 19 [facility] GLUCOMETER 142mg/dL Above high normal 990786871408 65 - 140 [facility] GLUCOMETER 150mg/dL Above high normal 055061329102 65 - 140 [facility] Triglyceride 540mg/dL Above high normal 559466115070 0 - 14 9 [facility] Phosphorus Lvl 8.2mg/dL Above high normal 623695901979 2.4 - 5.1 [facility] GFR [facility] [place] 19mL/min/1.73m2 Below low normal 275463615797 - [facility] Bili Direct 1.4mg/dL Above high normal 325290217511 0 - 0.3 [facility] Lipase Lvl 35unit/L Normal 356310733658 12 - 53 [facility] Magnesium Lvl 2.4mg/dL Normal 578842802398 1.6 - 2.6 [facility] Sodium Lvl 141mmol/L Normal [id number] 136 - 145 [facility] Potassium Lvl 4mmol/L Normal 200340013065 3.4 - 4.5 [facility] Chloride 108mmol/L Above high normal 069916201822 98 - 107 [facility] CO2 18mmol/L Below low normal 111154537664 20 - 31 [facility] AGAP 15mmol/L Normal 885137993007 5 - 15 [facility] Glucose Lvl Random 151mg/dL Above high normal 478870463151 65 - 140 [facility] BUN 89mg/dL Above high normal 378782648731 9 - 23 [facility] Creatinine 3.5mg/dL Above high normal 645905114466 0.6 - 1. 1 [facility] Calcium Lvl 8.9mg/dL Normal 186149535545 8.7 - 10.4 [facility] Alk Phos 404unit/L Above high normal 740783682209 46 - 116 [facility] AST 113unit/L Above high normal 912164196630 0 - 33 [facility] ALT 446unit/L Above high normal 893981217502 10 - 49 [facility] Total Protein 5.9gm/dL Normal 833883277986 5.7 - 8.2 [facility] Albumin Lvl 3.5gm/dL Normal 028733726098 3.2 - 4.8 [facility] Globulin 2.4gm/dL Normal 371385845416 1.3 - 4.7 [facility] A/G Ratio 1.5 Normal 944113276630 1 - 3.8 [facility] Bili Total 1.9mg/dL Above high normal 410447196545 0.2 - 1. 1 [facility] Fibrinogen 259mg/dL Normal 898368544589 174 - 514 [facility] PT 16.2sec Above high normal 879754437149 12.2 - 14.8 [facility] INR 1.3 Above high normal 425721888320 0.8 - 1.2 [facility] PTT 24.6sec Normal 028086605035 22.2 - 35 [facility] WBC 13.02k/uL Above high normal 335283110071 4 - 10.8 [facility] RBC 3.35million/uL Below low normal 547906224233 4.2 - 5.5 [facility] Hgb 10.4gm/dL Below low normal 300611284417 12.5 - 16.5 [facility] Hct 28.9% Below low normal 047623214990 37.5 - 49.5 [facility] MCV 86.3FL Normal [id number] 81 - 100 [facility] MCH 31pg Normal 020277980488 27 - 31 [facility] MCHC 36gm/dL Normal [id number] 31 - 36 [facility] RDW 15.2% Normal [id number] 11.5 - 15.5 [facility] Platelet 118k/uL Below low normal 934100550997 145 - 400 [facility] MPV 11.1FL Above high normal 290361295175 7.5 - 10.4 [facility] NRBC auto 1/100wbcs Normal 319990313183 0 - 2 [facility] NRBC Abs 0.1k/uL Normal 374621649761 0 - 0.1 [facility] Neutro % 88.5% Above high normal 375529058515 43 - 75 [facility] Neutro Absolute 11.5k/uL Above high normal 498367917020 1.7 - 8.1 [facility] Imm Gran % 2.6% Above high normal 498937952564 0.1 - 0. 3 [facility] Imm Gran Absolute 0.34k/uL Above high normal 64273920224 7 0.01 - 0.03 [facility] Lymph % 3.7% Below low normal 570518242954 15 - 45 [facility] Lymph Absolute 0.5k/uL Below low normal 212366920065 0.6 - 4.9 [facility] [place] % 4.9% Normal [id number] 3 - 12 [facility] Monocyte Abs 0.6k/uL Normal 121048879608 0.1 - 1.3 [facility] Eos % 0.1% Normal [id number] 0 - 6 [facility] Eosinophil Abs 0k/uL Normal 671169481574 0 - 0.7 [facility] Basophil % 0.2% Normal [id number] 0 - 2 [facility] Basophil Abs 0k/uL Normal 990392232382 0 - 0.2 [facility] pH Art 7.42 Normal 742966878950 7.35 - 7.45 [facility] pCO2 Art 28.8mmHg Below low normal 836880955224 35 - 45 [facility] pO2 Art 93.4mmHg Normal 396239789703 83 - 108 [facility] TCO2 Art 20mmol/L Below low normal 840639442775 22 - 30 [facility] HCO3 Art 18.8mmol/L Below low normal 193375217614 21 - 28 [facility] Base Ex/Def Art -6mmol/L Below low normal 485576595186 - 2 [facility] O2 Sat Calc Art 97.8% Normal [id number] 95 - 100 [facility] Lactic Acid Lvl 0.7mmol/L Normal 491945897842 0.7 - 2 [facility] Glucose Lvl Random 138mg/dL Normal 283466273353 65 - 140 [facility] Temperature Lab 36C Normal 132073158751 M [facility] BG FIO2 40 Normal [id number] [facility] GLUCOMETER 120mg/dL Normal 525229898494 65 - 140 [facility] GLUCOMETER 150mg/dL Above high normal 243407495565 65 - 140 [facility] GFR [facility] [place] 18mL/min/1.73m2 Below low normal 779314302151 - [facility] Sodium Lvl 145mmol/L Normal 326248675666 136 - 145 [facility] Potassium Lvl 4.2mmol/L Normal 345821614153 3.4 - 4.5 [facility] Chloride 111mmol/L Above high normal 127112693076 98 - 107 [facility] CO2 17mmol/L Below low normal [id number] 20 - 31 [facility] AGAP 17mmol/L Above high normal 338515724670 5 - 15 [facility] Glucose Lvl Random 145mg/dL Above high normal 637901376248 65 - 140 [facility] BUN 109mg/dL Critically high 324844656220 9 - 23 [facility] Creatinine 3.65mg/dL Above high normal 689979376618 0.6 - 1. 1 [facility] Calcium Lvl 8.9mg/dL Normal 561805114466 8.7 - 10.4 [facility] Alk Phos 399unit/L Above high normal 892923553525 46 - 116 [facility] AST 129unit/L Above high normal 772658190240 0 - 33 [facility] ALT 481unit/L Above high normal 258259082535 10 - 49 [facility] Total Protein 5.8gm/dL Normal [id number] 5.7 - 8.2 [facility] Albumin Lvl 3.6gm/dL Normal 637374117616 3.2 - 4.8 [facility] Globulin 2.2gm/dL Normal 424892790247 1.3 - 4.7 [facility] A/G Ratio 1.6 Normal [id number] 1 - 3.8 [facility] Bili Total 1.8mg/dL Above high normal 001973393998 0.2 - 1. 1 [facility] Phosphorus Lvl 9.1mg/dL Above high normal [id number] 2.4 - 5.1 [facility] Magnesium Lvl 2.5mg/dL Normal 762753325021 1.6 - 2.6 [facility] PT 16.3sec Above high normal 021613692136 12.2 - 14.8 [facility] INR 1.3 Above high normal 491930795641 0.8 - 1.2 [facility] Neutro % Interp See Comment Normal [facility] WBC 10.63k/uL Normal [id number] 4 - 10.8 [facility] RBC 3.1million/uL Below low normal 551455943428 4.2 - 5.5 [facility] Hgb 9.5gm/dL Below low normal 840922220849 12.5 - 16.5 [facility] Hct 26.6% Below low normal 032325248088 37.5 - 49.5 [facility] MCV 85.8FL Normal 276500627437 81 - 100 [facility] MCH 30.6pg Normal 680176533095 27 - 31 [facility] MCHC 35.7gm/dL Normal 952520527653 31 - 36 [facility] RDW 15.2% Normal 668688564507 11.5 - 15.5 [facility] Platelet 109k/uL Below low normal 042330438912 145 - 400 [facility] Imm Platelet % 2.7% Normal [id number] 1.1 - 6.7 [facility] MPV 11.1FL Above high normal 563610142283 7.5 - 10.4 [facility] NRBC auto 1/100wbcs Normal 0 - 2 [facility] NRBC Abs 0.1k/uL Normal 106567733787 0 - 0.1 [facility] Neutro % 88.5% Above high normal 576811396951 43 - 75 [facility] Neutro Absolute 9.4k/uL Above high normal 299441773846 1.7 - 8.1 [facility] Imm Gran % 2.6% Above high normal 546631345901 0.1 - 0. 3 [facility] Imm Gran Absolute 0.28k/uL Above high normal 30728887147 4 0.01 - 0.03 [facility] Lymph % 4.7% Below low normal 15 - 45 [facility] Lymph Absolute 0.5k/uL Below low normal 0.6 - 4.9 [facility] [place] % 4.1% Normal 3 - 12 [facility] Monocyte Abs 0.4k/uL Normal 0.1 - 1.3 [facility] Eos % 0% Normal 0 - 6 [facility] Eosinophil Abs 0k/uL Normal 0 - 0.7 [facility] Basophil % 0.1% Normal 0 - 2 [facility] Basophil Abs 0k/uL Normal 0 - 0.2 [facility] pH Art 7.39 Normal 7.35 - 7.45 [facility] pCO2 Art 28.4mmHg Below low normal 35 - 45 [facility] pO2 Art 126.9mmHg Above high normal 83 - 108 [facility] TCO2 Art 18mmol/L Below low normal 22 - 30 [facility] HCO3 Art 17.4mmol/L Below low normal 21 - 28 [facility] Base Ex/Def Art -7.9mmol/L Below low normal 295797918876 - 2 [facility] O2 Sat Calc Art 99% Normal 95 - 100 [facility] Lactic Acid Lvl 0.9mmol/L Normal 0.7 - 2 [facility] Glucose Lvl Random 134mg/dL Normal 65 - 140 [facility] Temperature Lab 35.8C Normal 431240252696 [facility] BG FIO2 50 Normal 949556535861 [facility] GLUCOMETER 154mg/dL Above high normal 291945098787 65 - 140 [facility] GLUCOMETER 159mg/dL Above high normal 834260589782 65 - 140 [facility] GLUCOMETER 159mg/dL Above high normal 107321391422 65 - 140 [facility] GLUCOMETER 174mg/dL Above high normal 360437078362 65 - 140 [facility] GFR Center [place] 15mL/min/1.73m2 Below low normal 866196235153 - [facility] Sodium Lvl 143mmol/L Normal 732223329007 136 - 145 [facility] Potassium Lvl 4.5mmol/L Normal 590529789879 3.4 - 4.5 [facility] Chloride 110mmol/L Above high normal 320037295826 98 - 107 [facility] CO2 15mmol/L Below low normal 584621085297 20 - 31 [facility] AGAP 18mmol/L Above high normal 250029723606 5 - 15 [facility] Glucose Lvl Random 166mg/dL Above high normal 512977856640 65 - 140 [facility] BUN 132mg/dL Critically high 285032470778 9 - 23 [facility] Creatinine 4.21mg/dL Above high normal 222727478417 0.6 - 1. 1 [facility] Calcium Lvl 8.6mg/dL Below low normal 551915448031 8.7 - 10.4 [facility] Alk Phos 375unit/L Above high normal 238964816177 46 - 116 [facility] AST 176unit/L Above high normal 730482737859 0 - 33 [facility] ALT 532unit/L Above high normal 159537875746 10 - 49 [facility] Total Protein 5.5gm/dL Below low normal 790885459870 5.7 - 8.2 [facility] Albumin Lvl 3.3gm/dL Normal 373985073370 3.2 - 4.8 [facility] Globulin 2.2gm/dL Normal 695379342985 1.3 - 4.7 [facility] A/G Ratio 1.5 Normal 633515970066 1 - 3.8 [facility] Bili Total 1.7mg/dL Above high normal 227577969242 0.2 - 1. 1 [facility] Phosphorus Lvl 11.9mg/dL Above high normal 781217243042 2.4 - 5.1 [facility] Bili Direct 1.3mg/dL Above high normal 368532005608 0 - 0.3 [facility] Magnesium Lvl 2.7mg/dL Above high normal 923156716349 1.6 - 2.6 [facility] PTT 23sec Normal 951468432315 22.2 - 35 [facility] Fibrinogen 290mg/dL Normal 267262213893 174 - 514 [facility] PT 16.9sec Above high normal 122122416076 12.2 - 14.8 [facility] INR 1.4 Above high normal 374628798371 0.8 - 1.2 [facility] WBC 8.77k/uL Normal 593804780127 4 - 10.8 [facility] RBC 2.84million/uL Below low normal 186353454054 4.2 - 5.5 [facility] Hgb 8.7gm/dL Below low normal 830787478981 12.5 - 16.5 [facility] Hct 25.2% Below low normal 483308943882 37.5 - 49.5 [facility] MCV 88.7FL Normal 072443507447 81 - 100 [facility] MCH 30.6pg Normal 943733072361 27 - 31 [facility] MCHC 34.5gm/dL Normal 719183001053 31 - 36 [facility] RDW 15.3% Normal 582595090407 11.5 - 15.5 [facility] Platelet 91k/uL Below low normal 563296755006 145 - 400 [facility] MPV 10.5FL Above high normal 115849459591 7.5 - 10.4 [facility] NRBC auto 1/100wbcs Normal 552061018351 0 - 2 [facility] NRBC Abs 0.1k/uL Normal 209493168150 0 - 0.1 [facility] Neutro % 89.5% Above high normal 772744810901 43 - 75 [facility] Neutro Absolute 7.8k/uL Normal 456974172525 1.7 - 8.1 [facility] Imm Gran % 1.7% Above high normal 304020850906 0.1 - 0. 3 [facility] Imm Gran Absolute 0.15k/uL Above high normal 03775036533 2 0.01 - 0.03 [facility] Lymph % 4.9% Below low normal 388626019815 15 - 45 [facility] Lymph Absolute 0.4k/uL Below low normal 860101815279 0.6 - 4.9 [facility] [place] % 3.8% Normal 772005899395 3 - 12 [facility] Monocyte Abs 0.3k/uL Normal 492386079197 0.1 - 1.3 [facility] Eos % 0% Normal [id number] 0 - 6 [facility] Eosinophil Abs 0k/uL Normal 739590912362 0 - 0.7 [facility] Basophil % 0.1% Normal 182752770829 0 - 2 [facility] Basophil Abs 0k/uL Normal 676744083820 0 - 0.2 [facility] GLUCOMETER 174mg/dL Above high normal 309958810652 65 - 140 [facility] GLUCOMETER 173mg/dL Above high normal 133969793987 65 - 140 [facility] pH Art 7.32 Below low normal 960650577571 7.35 - 7.45 [facility] pCO2 Art 29.7mmHg Below low normal 915769405033 35 - 45 [facility] pO2 Art 88.9mmHg Normal 290783099210 83 - 108 [facility] TCO2 Art 15mmol/L Below low normal 328106381635 22 - 30 [facility] HCO3 Art 15.2mmol/L Below low normal 297548992277 21 - 28 [facility] Base Ex/Def Art -10.9mmol/L Below low normal 063780000790 - 2 [facility] O2 Sat Calc Art 96.2% Normal 847826668015 95 - 100 [facility] Sodium Lvl 139mmol/L Normal 628914784671 137 - 145 [facility] Potassium Lvl 4.5mmol/L Normal 761967378004 3.5 - 5.1 [facility] Chloride 117mmol/L Above high normal 065566825534 98 - 107 [facility] AGAP 8mmol/L Normal 321329369489 5 - 15 [facility] Glucose Lvl Random 142mg/dL Above high normal 130936524823 65 - 140 [facility] Calcium Ionized 1.1mmol/L Below low normal 651640370772 1 .12 - 1.32 [facility] Hct 22% Below low normal 884622494923 37.5 - 49.5 [facility] Hgb 7.5gm/dL Below low normal 528619917367 12.5 - 16.5 [facility] Lactic Acid Lvl <0.7 Below low normal 207444160119 0.7 - 2 [facility] Temperature Lab 37C Normal 865108661926 [facility] BG FIO2 50 Normal 961779073282 [facility] GLUCOMETER 177mg/dL Above high normal 699237933003 65 - 140 [facility] Tacrolimus Lvl 8.3ng/mL Normal 145896771876 5 - 19 [facility] GFR Center [place] 15mL/min/1.73m2 Below low normal 004232114837 - [facility] Phosphorus Lvl 12.2mg/dL Above high normal 136861813597 2.4 - 5.1 [facility] Sodium Lvl 146mmol/L Above high normal 907796128354 136 - 14 5 [facility] Potassium Lvl 4.9mmol/L Above high normal 657250297390 3.4 - 4.5 [facility] Chloride 112mmol/L Above high normal 804405460452 98 - 107 [facility] CO2 14mmol/L Below low normal 709367733953 20 - 31 [facility] AGAP 20mmol/L Above high normal 363311099754 5 - 15 [facility] Glucose Lvl Random 161mg/dL Above high normal 403812127404 65 - 140 [facility] BUN 124mg/dL Critically high 852025952820 9 - 23 [facility] Creatinine 4.16mg/dL Above high normal 225527007766 0.6 - 1. 1 [facility] Calcium Lvl 8.5mg/dL Below low normal 511039365914 8.7 - 10.4 [facility] Alk Phos 372unit/L Above high normal 199064746820 46 - 116 [facility] AST 204unit/L Above high normal 378201850305 0 - 33 [facility] ALT 576unit/L Above high normal 663842479439 10 - 49 [facility] Total Protein 5.4gm/dL Below low normal 694758019819 5.7 - 8.2 [facility] Albumin Lvl 3.3gm/dL Normal 265178477875 3.2 - 4.8 [facility] Globulin 2.1gm/dL Normal 910272974190 1.3 - 4.7 [facility] A/G Ratio 1.6 Normal 965208374730 1 - 3.8 [facility] Bili Total 1.8mg/dL Above high normal 011153187637 0.2 - 1. 1 [facility] Bili Direct 1.3mg/dL Above high normal 218472508567 0 - 0.3 [facility] Magnesium Lvl 2.7mg/dL Above high normal 297414623917 1.6 - 2.6 [facility] PTT 23.8sec Normal 258746610391 22.2 - 35 [facility] PT 16.9sec Above high normal 339727564520 12.2 - 14.8 [facility] INR 1.4 Above high normal 885685925454 0.8 - 1.2 [facility] Fibrinogen 269mg/dL Normal 588851001089 174 - 514 [facility] WBC 8.76k/uL Normal 232995185633 4 - 10.8 [facility] RBC 2.74million/uL Below low normal 641399646159 4.2 - 5.5 [facility] Hgb 8.5gm/dL Below low normal 552656892428 12.5 - 16.5 [facility] Hct 24.6% Below low normal 929463796405 37.5 - 49.5 [facility] MCV 89.8FL Normal 815532955707 81 - 100 [facility] MCH 31pg Normal 043284108381 27 - 31 [facility] MCHC 34.6gm/dL Normal 981558498392 31 - 36 [facility] RDW 15.7% Above high normal 113396552951 11.5 - 15.5 [facility] Platelet 91k/uL Below low normal 163334986388 145 - 400 [facility] MPV 11.6FL Above high normal 189340499353 7.5 - 10.4 [facility] NRBC auto 1/100wbcs Normal 376768174129 0 - 2 [facility] NRBC Abs 0.1k/uL Normal 916572309642 0 - 0.1 [facility] Neutro % 89.2% Above high normal 794591698836 43 - 75 [facility] Neutro Absolute 7.8k/uL Normal 335718749744 1.7 - 8.1 [facility] Imm Gran % 1.9% Above high normal 380984841197 0.1 - 0. 3 [facility] Imm Gran Absolute 0.17k/uL Above high normal 91261073843 5 0.01 - 0.03 [facility] Lymph % 5% Below low normal 036295665303 15 - 45 [facility] Lymph Absolute 0.4k/uL Below low normal 436613127437 0.6 - 4.9 [facility] [place] % 3.8% Normal 180776988334 3 - 12 [facility] Monocyte Abs 0.3k/uL Normal 128037891861 0.1 - 1.3 [facility] Eos % 0% Normal 218787536018 0 - 6 [facility] Eosinophil Abs 0k/uL Normal 416706281669 0 - 0.7 [facility] Basophil % 0.1% Normal 377868036504 0 - 2 [facility] Basophil Abs 0k/uL Normal 852036564315 0 - 0.2 [facility] GLUCOMETER 164mg/dL Above high normal 325458542271 65 - 140 [facility] GLUCOMETER 188mg/dL Above high normal 583600490152 65 - 140 [facility] GLUCOMETER 166mg/dL Above high normal 997354327868 65 - 140 [facility] GFR Center [place] 17mL/min/1.73m2 Below low normal 726078370308 - [facility] Sodium Lvl 146mmol/L Above high normal 845337413886 136 - 14 5 [facility] Potassium Lvl 4.8mmol/L Above high normal 661022005050 3.4 - 4.5 [facility] Chloride 112mmol/L Above high normal 223972206854 98 - 107 [facility] CO2 15mmol/L Below low normal 275873395162 20 - 31 [facility] AGAP 19mmol/L Above high normal 935154234061 5 - 15 [facility] Glucose Lvl Random 148mg/dL Above high normal 330544906307 65 - 140 [facility] BUN 117mg/dL Critically high 847650839976 9 - 23 [facility] Creatinine 3.9mg/dL Above high normal 566119429070 0.6 - 1. 1 [facility] Calcium Lvl 8.6mg/dL Below low normal 199152069463 8.7 - 10.4 [facility] Alk Phos 379unit/L Above high normal 965687379583 46 - 116 [facility] AST 265unit/L Above high normal 058681191686 0 - 33 [facility] ALT 635unit/L Above high normal 583351726270 10 - 49 [facility] Total Protein 5.4gm/dL Below low normal 531425660631 5.7 - 8.2 [facility] Albumin Lvl 3.4gm/dL Normal [id number] 3.2 - 4.8 [facility] Globulin 2gm/dL Normal [id number] 1.3 - 4.7 [facility] A/G Ratio 1.7 Normal [id number] 1 - 3.8 [facility] Bili Total 2.4mg/dL Above high normal 021401656770 0.2 - 1. 1 [facility] GLUCOMETER 174mg/dL Above high normal 540082295231 65 - 140 [facility] Bili Direct 1.7mg/dL Above high normal 257711269856 0 - 0.3 [facility] Fibrinogen 263mg/dL Normal 850863501057 174 - 514 [facility] PTT 23.9sec Normal [id number] 22.2 - 35 [facility] PT 17.3sec Above high normal 980214252301 12.2 - 14.8 [facility] INR 1.4 Above high normal 810672097026 0.8 - 1.2 [facility] WBC 8.88k/uL Normal [id number] 4 - 10.8 [facility] RBC 2.71million/uL Below low normal 410197656698 4.2 - 5.5 [facility] Hgb 8.5gm/dL Below low normal 518822944515 12.5 - 16.5 [facility] Hct 24.3% Below low normal 999442401541 37.5 - 49.5 [facility] MCV 89.7FL Normal 659382103991 81 - 100 [facility] MCH 31.4pg Above high normal 865415999155 27 - 31 [facility] MCHC 35gm/dL Normal [id number] 31 - 36 [facility] RDW 15.4% Normal [id number] 11.5 - 15.5 [facility] Platelet 81k/uL Below low normal 543853650591 145 - 400 [facility] MPV 11.2FL Above high normal 166077721945 7.5 - 10.4 [facility] NRBC auto 1/100wbcs Normal [id number] 0 - 2 [facility] NRBC Abs 0.1k/uL Normal 686174707314 0 - 0.1 [facility] Neutro % 89.1% Above high normal 838225230707 43 - 75 [facility] Neutro Absolute 7.9k/uL Normal [id number] 1.7 - 8.1 [facility] Imm Gran % 1.4% Above high normal 827219596999 0.1 - 0. 3 [facility] Imm Gran Absolute 0.12k/uL Above high normal 59714113696 3 0.01 - 0.03 [facility] Lymph % 5.1% Below low normal 555477712931 15 - 45 [facility] Lymph Absolute 0.4k/uL Below low normal 536347550668 0.6 - 4.9 [facility] [place] % 4.3% Normal [id number] 3 - 12 [facility] Monocyte Abs 0.4k/uL Normal 547885827423 0.1 - 1.3 [facility] Eos % 0% Normal 743018303919 0 - 6 [facility] Eosinophil Abs 0k/uL Normal 216473478028 0 - 0.7 [facility] Basophil % 0.1% Normal [id number] 0 - 2 [facility] Basophil Abs 0k/uL Normal 661583320714 0 - 0.2 [facility] Aspergillus Galactomannan Ag, BAL Negative Normal 798951063603 - [facility] Aspergillus Galactomannan Index 0.14 Normal [id number] [facility] GLUCOMETER 171mg/dL Above high normal [id number] 65 - 140 [facility] GLUCOMETER 147mg/dL Above high normal 103876743626 65 - 140 [facility] GLUCOMETER 163mg/dL Above high normal 106407416074 65 - 140 [facility] GLUCOMETER 151mg/dL Above high normal 496366900653 65 - 140 [facility] Testing Site Normal [id number] [facility] ABORh Int O POS Normal [id number] [facility] AbSc 2C Int Normal [id number] [facility] GFR [facility] [place] 18mL/min/1.73m2 Below low normal 472746732256 - [facility] Sodium Lvl 145mmol/L Normal 889296980400 136 - 145 [facility] Potassium Lvl 4.7mmol/L Above high normal 423352281142 3.4 - 4.5 [facility] Chloride 112mmol/L Above high normal 772078986445 98 - 107 [facility] CO2 15mmol/L Below low normal [id number] 20 - 31 [facility] AGAP 18mmol/L Above high normal 875593748512 5 - 15 [facility] Glucose Lvl Random 146mg/dL Above high normal 754034054681 65 - 140 [facility] BUN 108mg/dL Critically high 346722703816 9 - 23 [facility] Creatinine 3.6mg/dL Above high normal 547184141873 0.6 - 1. 1 [facility] Calcium Lvl 8.4mg/dL Below low normal 864789307817 8.7 - 10.4 [facility] Alk Phos 372unit/L Above high normal 805385348434 46 - 116 [facility] AST 371unit/L Above high normal 022839064993 0 - 33 [facility] ALT 696unit/L Above high normal 526730263932 10 - 49 [facility] Total Protein 5.3gm/dL Below low normal 733527309912 5.7 - 8.2 [facility] Albumin Lvl 3.2gm/dL Normal 093566343373 3.2 - 4.8 [facility] Globulin 2.1gm/dL Normal [id number] 1.3 - 4.7 [facility] A/G Ratio 1.5 Normal 069251374898 1 - 3.8 [facility] Bili Total 2.4mg/dL Above high normal 213673789879 0.2 - 1. 1 [facility] Neutro % Interp See Comment Normal [id number] [facility] WBC 8.67k/uL Normal 097992909901 4 - 10.8 [facility] RBC 2.39million/uL Below low normal 367810259558 4.2 - 5.5 [facility] Hgb 7.3gm/dL Below low normal 735248109805 12.5 - 16.5 [facility] Hct 20.6% Below low normal 173950393401 37.5 - 49.5 [facility] MCV 86.2FL Normal 489044140938 81 - 100 [facility] MCH 30.5pg Normal 517632508105 27 - 31 [facility] MCHC 35.4gm/dL Normal [id number] 31 - 36 [facility] RDW 15.9% Above high normal 533989056866 11.5 - 15.5 [facility] Platelet 77k/uL Below low normal 783153102294 145 - 400 [facility] MPV 11.4FL Above high normal 958314680460 7.5 - 10.4 [facility] NRBC auto 1/100wbcs Normal 155018222365 0 - 2 [facility] NRBC Abs 0.1k/uL Normal 413487946601 0 - 0.1 [facility] Neutro % 89.2% Above high normal 719820008091 43 - 75 [facility] Neutro Absolute 7.7k/uL Normal [id number] 1.7 - 8.1 [facility] Imm Gran % 1% Above high normal 026417294230 0.1 - 0. 3 [facility] Imm Gran Absolute 0.09k/uL Above high normal 79430606486 9 0.01 - 0.03 [facility] Lymph % 5.9% Below low normal 690636927341 15 - 45 [facility] Lymph Absolute 0.5k/uL Below low normal 289577916858 0.6 - 4.9 [facility] [place] % 3.9% Normal [id number] 3 - 12 [facility] Monocyte Abs 0.3k/uL Normal [id number] 0.1 - 1.3 [facility] Eos % 0% Normal 223493271222 0 - 6 [facility] Eosinophil Abs 0k/uL Normal 978082227400 0 - 0.7 [facility] Basophil % 0% Normal [id number] 0 - 2 [facility] Basophil Abs 0k/uL Normal 511059801138 0 - 0.2 [facility] GLUCOMETER 163mg/dL Above high normal 817332902589 65 - 140 [facility] pH Art 7.34 Below low normal 691700910083 7.35 - 7.45 [facility] pCO2 Art 29.4mmHg Below low normal 561055129248 35 - 45 [facility] pO2 Art 78.6mmHg Below low normal 185711802169 83 - 108 [facility] TCO2 Art 16mmol/L Below low normal 577704766686 22 - 30 [facility] HCO3 Art 15.7mmol/L Below low normal 182719580984 21 - 28 [facility] Base Ex/Def Art -10.2mmol/L Below low normal 525779806501 - 2 [facility] O2 Sat Calc Art 95.1% Normal [id number] 95 - 100 [facility] Sodium Lvl 137mmol/L Normal [id number] 137 - 145 [facility] Potassium Lvl 4.5mmol/L Normal 840978191205 3.5 - 5.1 [facility] Chloride 114mmol/L Above high normal 887435651671 98 - 107 [facility] AGAP 8mmol/L Normal 701722259588 5 - 15 [facility] Glucose Lvl Random 127mg/dL Normal [id number] 65 - 140 [facility] BUN 107mg/dL Critically high 670523253406 9 - 20 [facility] Creatinine 3.89mg/dL Above high normal 374392317431 0.66 - 1.5 [facility] Calcium Ionized 1.09mmol/L Below low normal 014854458962 1 .12 - 1.32 [facility] Hct 18% Critically low 746591234553 37.5 - 49.5 [facility] Hgb 6gm/dL Critically low 746524707223 12.5 - 16.5 [facility] Lactic Acid Lvl <0.7 Below low normal 776731013583 0.7 - 2 [facility] Temperature Lab 36.7C Normal 393611063879 [facility] BG FIO2 50 Normal [id number] [facility] GLUCOMETER 152mg/dL Above high normal 356037372488 65 - 140 [facility] GLUCOMETER 137mg/dL Normal [id number] 65 - 140 [facility] GLUCOMETER 119mg/dL Normal 544078229259 65 - 140 [facility] GLUCOMETER 123mg/dL Normal 804014081903 65 - 140 [facility] G[facility] [place] 20mL/min/1.73m2 Below low normal 434366379368 - [facility] Sodium Lvl 142mmol/L Normal 314149371406 136 - 145 [facility] Potassium Lvl 4.6mmol/L Above high normal 850482199188 3.4 - 4.5 [facility] Chloride 110mmol/L Above high normal 528958033099 98 - 107 [facility] CO2 16mmol/L Below low normal 724155832458 20 - 31 [facility] AGAP 16mmol/L Above high normal 760388827381 5 - 15 [facility] Glucose Lvl Random 101mg/dL Normal 570443831547 65 - 140 [facility] BUN 102mg/dL Critically high 775439993173 9 - 23 [facility] Creatinine 3.37mg/dL Above high normal 908171937339 0.6 - 1. 1 [facility] Calcium Lvl 8.5mg/dL Below low normal 994609220729 8.7 - 10.4 [facility] Alk Phos 365unit/L Above high normal 585990321372 46 - 116 [facility] AST 552unit/L Above high normal 128443086904 0 - 33 [facility] ALT 767unit/L Above high normal 978137092359 10 - 49 [facility] Total Protein 5.4gm/dL Below low normal 595627016865 5.7 - 8.2 [facility] Albumin Lvl 3.3gm/dL Normal 955949752443 3.2 - 4.8 [facility] Globulin 2.1gm/dL Normal 969857232943 1.3 - 4.7 [facility] A/G Ratio 1.6 Normal [id number] 1 - 3.8 [facility] Bili Total 2.6mg/dL Above high normal 729840478392 0.2 - 1. 1 [facility] Bili Direct 2mg/dL Above high normal 903340066928 0 - 0.3 [facility] PTT 23.2sec Normal 952485642516 22.2 - 35 [facility] Fibrinogen 248mg/dL Normal 420932840791 174 - 514 [facility] PT 17.4sec Above high normal 308677566746 12.2 - 14.8 [facility] INR 1.4 Above high normal 185841642204 0.8 - 1.2 [facility] WBC 13.13k/uL Above high normal 489078281242 4 - 10.8 [facility] RBC 2.57million/uL Below low normal 511306470729 4.2 - 5.5 [facility] Hgb 8gm/dL Below low normal 539325395766 12.5 - 16.5 [facility] Hct 22.9% Below low normal 388863424235 37.5 - 49.5 [facility] MCV 89.1FL Normal 792034739742 81 - 100 [facility] MCH 31.1pg Above high normal 528130085425 27 - 31 [facility] MCHC 34.9gm/dL Normal 162068790468 31 - 36 [facility] RDW 15.8% Above high normal 768816160415 11.5 - 15.5 [facility] Platelet 90k/uL Below low normal 105393283322 145 - 400 [facility] MPV 11.4FL Above high normal 232859967098 7.5 - 10.4 [facility] NRBC auto 0/100wbcs Normal 444868162966 0 - 2 [facility] NRBC Abs 0.1k/uL Normal 021784615926 0 - 0.1 [facility] Neutro % 88.7% Above high normal 266034175899 43 - 75 [facility] Neutro Absolute 11.7k/uL Above high normal 321213583066 1.7 - 8.1 [facility] Imm Gran % 1% Above high normal 318716863611 0.1 - 0. 3 [facility] Imm Gran Absolute 0.13k/uL Above high normal 16080858889 3 0.01 - 0.03 [facility] Lymph % 5.2% Below low normal 731962222948 15 - 45 [facility] Lymph Absolute 0.7k/uL Normal [id number] 0.6 - 4.9 [facility] [place] % 5% Normal [id number] 3 - 12 [facility] Monocyte Abs 0.6k/uL Normal 248616318287 0.1 - 1.3 [facility] Eos % 0% Normal 290438070530 0 - 6 [facility] Eosinophil Abs 0k/uL Normal 687250963779 0 - 0.7 [facility] Basophil % 0.1% Normal 392840549259 0 - 2 [facility] Basophil Abs 0k/uL Normal 300055809783 0 - 0.2 [facility] GLUCOMETER 114mg/dL Normal 527545476435 65 - 140 [facility] GLUCOMETER 111mg/dL Normal 643590612172 65 - 140 [facility] GLUCOMETER 125mg/dL Normal 544464037339 65 - 140 [facility] Tacrolimus Lvl 11.9ng/mL Normal 623299248532 5 - 19 [facility] Phosphorus Lvl 9.6mg/dL Above high normal [id number] 2.4 - 5.1 [facility] G[facility] [place] 21mL/min/1.73m2 Below low normal 360449545533 - [facility] Sodium Lvl 142mmol/L Normal 764651514933 136 - 145 [facility] Potassium Lvl 4.5mmol/L Normal 145484808674 3.4 - 4.5 [facility] Chloride 111mmol/L Above high normal 649225284507 98 - 107 [facility] CO2 16mmol/L Below low normal [id number] 20 - 31 [facility] AGAP 15mmol/L Normal 377536692457 5 - 15 [facility] Glucose Lvl Random 122mg/dL Normal [id number] 65 - 140 [facility] BUN 98mg/dL Above high normal 738076358907 9 - 23 [facility] Creatinine 3.19mg/dL Above high normal 007140973228 0.6 - 1. 1 [facility] Calcium Lvl 8.7mg/dL Normal 381633683933 8.7 - 10.4 [facility] Alk Phos 359unit/L Above high normal 698527053666 46 - 116 [facility] AST 749unit/L Above high normal 617055533089 0 - 33 [facility] ALT 882unit/L Above high normal 461363259414 10 - 49 [facility] Total Protein 5.4gm/dL Below low normal 580757362390 5.7 - 8.2 [facility] Albumin Lvl 3.4gm/dL Normal 243253948351 3.2 - 4.8 [facility] Globulin 2gm/dL Normal [id number] 1.3 - 4.7 [facility] A/G Ratio 1.7 Normal [id number] 1 - 3.8 [facility] Bili Total 2.9mg/dL Above high normal 517792298459 0.2 - 1. 1 [facility] Bili Direct 2.2mg/dL Above high normal 568963554218 0 - 0.3 [facility] Magnesium Lvl 2.4mg/dL Normal 261358945525 1.6 - 2.6 [facility] Fibrinogen 234mg/dL Normal 794916646070 174 - 514 [facility] PTT 23.5sec Normal 821582418538 22.2 - 35 [facility] PT 18sec Above high normal 952751976408 12.2 - 14.8 [facility] INR 1.5 Above high normal 820109721156 0.8 - 1.2 [facility] Neutro % Interp See Comment Normal [id number] [facility] WBC 12.96k/uL Above high normal [id number] 4 - 10.8 [facility] RBC 2.56million/uL Below low normal 889258722681 4.2 - 5.5 [facility] Hgb 7.8gm/dL Below low normal 089241723869 12.5 - 16.5 [facility] Hct 22.1% Below low normal 478047070774 37.5 - 49.5 [facility] MCV 86.3FL Normal 933066737359 81 - 100 [facility] MCH 30.5pg Normal [id number] 27 - 31 [facility] MCHC 35.3gm/dL Normal [id number] 31 - 36 [facility] RDW 15.9% Above high normal 708083021338 11.5 - 15.5 [facility] Platelet 86k/uL Below low normal 346007566915 145 - 400 [facility] MPV 11.5FL Above high normal 195903625474 7.5 - 10.4 [facility] NRBC auto 0/100wbcs Normal 814708981815 0 - 2 [facility] NRBC Abs 0k/uL Normal 667186716837 0 - 0.1 [facility] Neutro % 88.8% Above high normal 772404620134 43 - 75 [facility] Neutro Absolute 11.5k/uL Above high normal 353613985106 1.7 - 8.1 [facility] Imm Gran % 1.7% Above high normal 571919726284 0.1 - 0. 3 [facility] Imm Gran Absolute 0.22k/uL Above high normal 41336511074 0 0.01 - 0.03 [facility] Lymph % 4.9% Below low normal 995769360950 15 - 45 [facility] Lymph Absolute 0.6k/uL Normal 089080718997 0.6 - 4.9 [facility] [place] % 4.5% Normal [id number] 3 - 12 [facility] Monocyte Abs 0.6k/uL Normal [id number] 0.1 - 1.3 [facility] Eos % 0% Normal [id number] 0 - 6 [facility] Eosinophil Abs 0k/uL Normal 839065932707 0 - 0.7 [facility] Basophil % 0.1% Normal [id number] 0 - 2 [facility] Basophil Abs 0k/uL Normal 189773150245 0 - 0.2 [facility] pH Art 7.26 Below low normal 262658096356 7.35 - 7.45 [facility] pCO2 Art 34.4mmHg Below low normal 675828960736 35 - 45 [facility] pO2 Art 124.1mmHg Above high normal 943616312411 83 - 108 [facility] TCO2 Art 16mmol/L Below low normal 271342564682 22 - 30 [facility] HCO3 Art 15.6mmol/L Below low normal 499813457354 21 - 28 [facility] Base Ex/Def Art -11.4mmol/L Below low normal 885602304121 - 2 [facility] O2 Sat Calc Art 98.3% Normal 652327364893 95 - 100 [facility] Sodium Lvl 137mmol/L Normal 597608263284 137 - 145 [facility] Potassium Lvl 4.4mmol/L Normal 709971703413 3.5 - 5.1 [facility] Chloride 115mmol/L Above high normal 880958272473 98 - 107 [facility] AGAP 7mmol/L Normal 800784447820 5 - 15 [facility] Glucose Lvl Random 106mg/dL Normal 725552144661 65 - 140 [facility] BUN 96mg/dL Above high normal 544285759488 9 - 20 [facility] Creatinine 3.14mg/dL Above high normal 689190076287 0.66 - 1.5 [facility] Calcium Ionized 1.17mmol/L Normal 452312809662 1.12 - 1.32 [facility] Hct 20% Below low normal 428855285801 37.5 - 49.5 [facility] Hgb 6.8gm/dL Below low normal 168000332207 12.5 - 16.5 [facility] Lactic Acid Lvl 1mmol/L Normal [id number] 0.7 - 2 [facility] GLUCOMETER 145mg/dL Above high normal 519410627798 65 - 140 [facility] GLUCOMETER 166mg/dL Above high normal 332231161014 65 - 140 [facility] GLUCOMETER 178mg/dL Above high normal 739152520147 65 - 140 [facility] GLUCOMETER 195mg/dL Above high normal 501272318792 65 - 140 [facility] GLUCOMETER 199mg/dL Above high normal 779868052980 65 - 140 [facility] Albumin BF Pleural 3.1gm/dL Normal 526416425360 [facility] GFR [facility] [place] 23mL/min/1.73m2 Below low normal 200100449643 - [facility] Sodium Lvl 141mmol/L Normal 060319219987 136 - 145 [facility] Potassium Lvl 4.8mmol/L Above high normal 390891845195 3.4 - 4.5 [facility] Chloride 110mmol/L Above high normal 825467418188 98 - 107 [facility] CO2 16mmol/L Below low normal 019343886296 20 - 31 [facility] AGAP 15mmol/L Normal 359826866711 5 - 15 [facility] Glucose Lvl Random 180mg/dL Above high normal 886838508658 65 - 140 [facility] BUN 85mg/dL Above high normal 708787951426 9 - 23 [facility] Creatinine 2.94mg/dL Above high normal 994041142980 0.6 - 1. 1 [facility] Calcium Lvl 8.6mg/dL Below low normal 028271021664 8.7 - 10.4 [facility] Alk Phos 326unit/L Above high normal 146139610919 46 - 116 [facility] AST 1198unit/L Above high normal 353611541087 0 - 33 [facility] ALT 963unit/L Above high normal 834269666754 10 - 49 [facility] Total Protein 5.4gm/dL Below low normal 136387180662 5.7 - 8.2 [facility] Albumin Lvl 3.3gm/dL Normal 050887509711 3.2 - 4.8 [facility] Globulin 2.1gm/dL Normal 591151977644 1.3 - 4.7 [facility] A/G Ratio 1.6 Normal 056639723331 1 - 3.8 [facility] Bili Total 3.7mg/dL Above high normal 176643860987 0.2 - 1. 1 [facility] Bili Direct 2.9mg/dL Above high normal 036506003359 0 - 0.3 [facility] Phosphorus Lvl 9.2mg/dL Above high normal 048675896770 2.4 - 5.1 [facility] Magnesium Lvl 2.3mg/dL Normal 751566393414 1.6 - 2.6 [facility] Haptoglobin 1mg/dL Below low normal 175816925934 40 - 280 [facility] PTT 23.9sec Normal 261962439857 22.2 - 35 [facility] Fibrinogen 219mg/dL Normal 378952919178 174 - 514 [facility] PT 17.8sec Above high normal 161687944240 12.2 - 14.8 [facility] INR 1.4 Above high normal 970125877108 0.8 - 1.2 [facility] Neutro % Interp See Comment Normal [id number] [facility] WBC 12.07k/uL Above high normal 549639540388 4 - 10.8 [facility] RBC 2.55million/uL Below low normal 774672580203 4.2 - 5.5 [facility] Hgb 7.8gm/dL Below low normal 583875302982 12.5 - 16.5 [facility] Hct 21.9% Below low normal 235822580683 37.5 - 49.5 [facility] MCV 85.9FL Normal 162371258499 81 - 100 [facility] MCH 30.6pg Normal [id number] 27 - 31 [facility] MCHC 35.6gm/dL Normal [id number] 31 - 36 [facility] RDW 15.6% Above high normal 757932462741 11.5 - 15.5 [facility] Platelet 77k/uL Below low normal 476329353547 145 - 400 [facility] MPV 11.2FL Above high normal 465022467507 7.5 - 10.4 [facility] NRBC auto 0/100wbcs Normal 412373468874 0 - 2 [facility] NRBC Abs 0k/uL Normal 981577263844 0 - 0.1 [facility] Neutro % 89.9% Above high normal 148676379274 43 - 75 [facility] Neutro Absolute 10.8k/uL Above high normal 509014618538 1.7 - 8.1 [facility] Imm Gran % 0.7% Above high normal 206297863093 0.1 - 0. 3 [facility] Imm Gran Absolute 0.09k/uL Above high normal 83545264033 7 0.01 - 0.03 [facility] Lymph % 4.7% Below low normal 859470266993 15 - 45 [facility] Lymph Absolute 0.6k/uL Normal 580322919894 0.6 - 4.9 [facility] [place] % 4.6% Normal 595282112917 3 - 12 [facility] Monocyte Abs 0.6k/uL Normal 489053018355 0.1 - 1.3 [facility] Eos % 0% Normal 521630479248 0 - 6 [facility] Eosinophil Abs 0k/uL Normal 992208702146 0 - 0.7 [facility] Basophil % 0.1% Normal 731976628246 0 - 2 [facility] Basophil Abs 0k/uL Normal 166217703475 0 - 0.2 [facility] HCV Comment See Comment Normal [id number] [facility] Hepatitis C RNA by PCR Quant Normal 681445676564 - [facility] GLUCOMETER 193mg/dL Above high normal 157859845471 65 - 140 [facility] pH Art 7.32 Below low normal 735622080070 7.35 - 7.45 [facility] pCO2 Art 30.6mmHg Below low normal 057541066156 35 - 45 [facility] pO2 Art 104.1mmHg Normal 069904997121 83 - 108 [facility] TCO2 Art 16mmol/L Below low normal 673871462629 22 - 30 [facility] HCO3 Art 15.8mmol/L Below low normal 698719245108 21 - 28 [facility] Base Ex/Def Art -10.2mmol/L Below low normal 381587033021 - 2 [facility] O2 Sat Calc Art 97.6% Normal 629217274058 95 - 100 [facility] Sodium Lvl 135mmol/L Below low normal 501541454563 137 - 145 [facility] Potassium Lvl 4.5mmol/L Normal 005197678238 3.5 - 5.1 [facility] Chloride 112mmol/L Above high normal 635517042248 98 - 107 [facility] AGAP 8mmol/L Normal 788751695484 5 - 15 [facility] Glucose Lvl Random 154mg/dL Above high normal 347010488659 65 - 140 [facility] BUN 89mg/dL Above high normal 626757830466 9 - 20 [facility] Creatinine 3.36mg/dL Above high normal 918782153992 0.66 - 1.5 [facility] Calcium Ionized 1.16mmol/L Normal 162259732190 1.12 - 1.32 [facility] Hct 19% Critically low 355298657319 37.5 - 49.5 [facility] Hgb 6.4gm/dL Critically low 432419296455 12.5 - 16.5 [facility] Lactic Acid Lvl 0.7mmol/L Normal 727491100950 0.7 - 2 [facility] BG FIO2 80 Normal [id number] [facility] GLUCOMETER 177mg/dL Above high normal 986279147979 65 - 140 [facility] GLUCOMETER 163mg/dL Above high normal 647347213455 65 - 140 [facility] Retic Cnt Auto 3.8% Above high normal 004484282772 0.5 - 2 [facility] Retic Absolute 0.096million/uL Normal 926979887526 0.0 2 - 0.1 [facility] Reticulated Hgb 31.1pg Normal 116127096342 30.3 - 38.5 [facility] Imm Retic % 25.9% Above high normal 659540693875 2.2 - 15.7 [facility] GLUCOMETER 183mg/dL Above high normal 536637749654 65 - 140 [facility] Total Bili BF 7.8mg/dL Normal 550727162308 [facility] Direct Bili BF 2.82mg/dL Normal 350421857418 [facility] Indirec Bili BF 5mg/dL Normal 018242366436 [facility] LDH BF Pleural 2579unit/L Normal 622898897741 [facility] Protein BF Pleural 4.8gm/dL Normal 226318312932 [facility] Triglycerides BF Pleural 86mg/dL Normal 510044301599 [facility] Glucose BF 106mg/dL Normal 590914697713 [facility] AST 1761unit/L Above high normal 405143341637 0 - 33 [facility] LDH 1950unit/L Above high normal 663721953847 120 - 24 6 [facility] GFR Center [place] 25mL/min/1.73m2 Below low normal 734092611924 - [facility] Sodium Lvl 144mmol/L Normal 914776683773 136 - 145 [facility] Potassium Lvl 4.8mmol/L Above high normal 176935339393 3.4 - 4.5 [facility] Chloride 111mmol/L Above high normal 773998896436 98 - 107 [facility] CO2 17mmol/L Below low normal 420107063996 20 - 31 [facility] AGAP 16mmol/L Above high normal 040732091400 5 - 15 [facility] Glucose Lvl Random 183mg/dL Above high normal 578116939526 65 - 140 [facility] BUN 81mg/dL Above high normal 500896248843 9 - 23 [facility] Creatinine 2.75mg/dL Above high normal 006715024429 0.6 - 1. 1 [facility] Calcium Lvl 8mg/dL Below low normal 384417693654 8.7 - 10.4 [facility] Alk Phos 277unit/L Above high normal 030430435698 46 - 116 [facility] ALT 972unit/L Above high normal 897250661510 10 - 49 [facility] Total Protein 5.3gm/dL Below low normal 976144986353 5.7 - 8.2 [facility] Albumin Lvl 3.4gm/dL Normal 951503659051 3.2 - 4.8 [facility] Globulin 1.9gm/dL Normal 352189628639 1.3 - 4.7 [facility] A/G Ratio 1.8 Normal 893256850071 1 - 3.8 [facility] Bili Total 4.1mg/dL Above high normal 593842639495 0.2 - 1. 1 [facility] Bili Direct 3mg/dL Above high normal 130371516104 0 - 0.3 [facility] Fibrinogen 194mg/dL Normal 533006607755 174 - 514 [facility] PT 18.4sec Above high normal 760232491941 12.2 - 14.8 [facility] INR 1.5 Above high normal 927127973659 0.8 - 1.2 [facility] PTT 25.1sec Normal 360737248343 22.2 - 35 [facility] Imm Platelet Comment See Comment Normal [id number] [facility] WBC 16.03k/uL Above high normal 736745989217 4 - 10.8 [facility] RBC 2.58million/uL Below low normal 606661964388 4.2 - 5.5 [facility] Hgb 7.9gm/dL Below low normal 686174928783 12.5 - 16.5 [facility] Hct 22.3% Below low normal 419766711618 37.5 - 49.5 [facility] MCV 86.4FL Normal 904039682272 81 - 100 [facility] MCH 30.6pg Normal 226480709305 27 - 31 [facility] MCHC 35.4gm/dL Normal 830467229542 31 - 36 [facility] RDW 15.6% Above high normal 898298592780 11.5 - 15.5 [facility] Platelet 82k/uL Below low normal 220667329971 145 - 400 [facility] Imm Platelet % 3.7% Normal 415552735694 1.1 - 6.7 [facility] MPV 11.2FL Above high normal [id number] 7.5 - 10.4 [facility] NRBC auto 0/100wbcs Normal [id number] 0 - 2 [facility] NRBC Abs 0k/uL Normal [id number] 0 - 0.1 [facility] Neutro % 89.7% Above high normal [id number] 43 - 75 [facility] Neutro Absolute 14.4k/uL Above high normal [id number] 1.7 - 8.1 [facility] Imm Gran % 0.6% Above high normal [id number] 0.1 - 0. 3 [facility] Imm Gran Absolute 0.09k/uL Above high normal 20248992833 3 0.01 - 0.03 [facility] Lymph % 6.3% Below low normal [id number] 15 - 45 [facility] Lymph Absolute 1k/uL Normal [id number] 0.6 - 4.9 [facility] [place] % 3.3% Normal [id number] 3 - 12 [facility] Monocyte Abs 0.5k/uL Normal [id number] 0.1 - 1.3 [facility] Eos % 0% Normal [id number] 0 - 6 [facility] Eosinophil Abs 0k/uL Normal 044045263851 0 - 0.7 [facility] Basophil % 0.1% Normal [id number] 0 - 2 [facility] Basophil Abs 0k/uL Normal [id number] 0 - 0.2 [facility] GLUCOMETER 192mg/dL Above high normal [id number] 65 - 140 [facility] pH Art 7.29 Below low normal 7.35 - 7.45 [facility] pCO2 Art 33.9mmHg Below low normal 35 - 45 [facility] pO2 Art 139.5mmHg Above high normal 554224572227 83 - 108 [facility] TCO2 Art 16mmol/L Below low normal 878578942180 22 - 30 [facility] HCO3 Art 16.5mmol/L Below low normal 21 - 28 [facility] Base Ex/Def Art -10.3mmol/L Below low normal - 2 [facility] O2 Sat Calc Art 98.9% Normal [id number] 95 - 100 [facility] Sodium Lvl 137mmol/L Normal [id number] 137 - 145 [facility] Potassium Lvl 4.5mmol/L Normal [id number] 3.5 - 5.1 [facility] Chloride 113mmol/L Above high normal 468265098796 98 - 107 [facility] AGAP 8mmol/L Normal [id number] 5 - 15 [facility] Glucose Lvl Random 164mg/dL Above high normal [id number] 65 - 140 [facility] BUN 78mg/dL Above high normal [id number] 9 - 20 [facility] Creatinine 2.84mg/dL Above high normal [id number] 0.66 - 1.5 [facility] Calcium Ionized 1.07mmol/L Below low normal 488238525598 1 .12 - 1.32 [facility] Hct 20% Below low normal 375166615418 37.5 - 49.5 [facility] Hgb 6.8gm/dL Below low normal 377147530983 12.5 - 16.5 [facility] Lactic Acid Lvl 0.8mmol/L Normal 0.7 - 2 [facility] Temperature Lab 36.2C Normal 456185309039 [facility] BG FIO2 80 Normal [id number] [facility] RBC Pleural Fld 294045/mm3 Normal [id number] [facility] WBC Pleural Fld 2168/mm3 Above high normal 258776577767 0 - 1000 [facility] Total Cells Pleural Fld 100 Normal [id number] [facility] Neutrophil Pleural Fld 94% Above high normal [id number] 0 - 25 [facility] Lymphocyte Pleural Fld 2% Normal [id number] [facility] Mononuclear Pleural Fld 2% Normal 403323880950 [facility] Eosinophil Pleural Fld 2% Normal 917402498642 [facility] Appear Pleural Fld Abnormal 918742716518 - [facility] Color Pleural Fld Abnormal 419259771386 - [facility] GLUCOMETER 158mg/dL Above high normal 999775472797 65 - 140 [facility] LDH 1703unit/L Above high normal 926040732118 120 - 24 6 [facility] Total Protein 5.3gm/dL Below low normal 821183592200 5.7 - 8.2 [facility] pH Art 7.24 Below low normal 377775548836 7.35 - 7.45 [facility] pCO2 Art 34mmHg Below low normal 050598277687 35 - 45 [facility] pO2 Art 101.6mmHg Normal 557480520489 83 - 108 [facility] TCO2 Art 15mmol/L Below low normal 867498459975 22 - 30 [facility] HCO3 Art 14.8mmol/L Below low normal 015513099250 21 - 28 [facility] Base Ex/Def Art -12.7mmol/L Below low normal 067639149057 - 2 [facility] O2 Sat Calc Art 97% Normal [id number] 95 - 100 [facility] Sodium Lvl 136mmol/L Below low normal 511385480186 137 - 145 [facility] Potassium Lvl 5.3mmol/L Above high normal 030524973668 3.5 - 5.1 [facility] Chloride 114mmol/L Above high normal 843783126671 98 - 107 [facility] AGAP 8mmol/L Normal 821124591123 5 - 15 [facility] Glucose Lvl Random 147mg/dL Above high normal 476952469735 65 - 140 [facility] BUN 78mg/dL Above high normal 481174407786 9 - 20 [facility] Creatinine 2.79mg/dL Above high normal 555800259818 0.66 - 1.5 [facility] Calcium Ionized 1.1mmol/L Below low normal 618666293303 1 .12 - 1.32 [facility] Hct 21% Below low normal 815441901060 37.5 - 49.5 [facility] Hgb 7gm/dL Below low normal 900794618168 12.5 - 16.5 [facility] Lactic Acid Lvl 1.5mmol/L Normal 060735892169 0.7 - 2 M [facility] Temperature Lab 36.3C Normal 889621899319 M [facility] BG FIO2 80 Normal [id number] [facility] GLUCOMETER 178mg/dL Above high normal 223499967776 65 - 140 [facility] GLUCOMETER 163mg/dL Above high normal 127662234004 65 - 140 [facility] pH Art 7.2 Below low normal 709407198259 7.35 - 7.45 [facility] pCO2 Art 38.3mmHg Normal 592349673776 35 - 45 [facility] pO2 Art 68.9mmHg Below low normal 382557718571 83 - 108 [facility] HCO3 Art 15.3mmol/L Below low normal 078376605310 21 - 28 [facility] TCO2 Art 16mmol/L Below low normal 112857841534 22 - 30 [facility] Base Ex/Def Art -12.8mmol/L Below low normal 438275360953 - 2 [facility] O2 Sat Calc Art 90.2% Below low normal 910329358775 95 - 100 [facility] Lactic Acid Lvl 1.4mmol/L Normal 412302301761 0.7 - 2 [facility] BG FIO2 100 Normal 491347387525 [facility] Temperature Lab 36.4C Normal 380895296141 M [facility] GFR Center [place] 24mL/min/1.73m2 Below low normal 309017342329 - [facility] Sodium Lvl 144mmol/L Normal 639056830300 136 - 145 [facility] Potassium Lvl 5.4mmol/L Above high normal 181163206259 3.4 - 4.5 [facility] Chloride 111mmol/L Above high normal 543537830525 98 - 107 [facility] CO2 15mmol/L Below low normal 975212817168 20 - 31 [facility] AGAP 18mmol/L Above high normal 446435122253 5 - 15 [facility] Glucose Lvl Random 136mg/dL Normal 763014325599 65 - 140 [facility] BUN 74mg/dL Above high normal 970013908620 9 - 23 [facility] Creatinine 2.85mg/dL Above high normal 876323374409 0.6 - 1. 1 [facility] Calcium Lvl 8mg/dL Below low normal 130602008242 8.7 - 10.4 [facility] Alk Phos 210unit/L Above high normal 916305974145 46 - 116 [facility] AST 1635unit/L Above high normal 607283056311 0 - 33 [facility] ALT 665unit/L Above high normal 360924515359 10 - 49 [facility] Total Protein 5.3gm/dL Below low normal 092479817910 5.7 - 8.2 [facility] Albumin Lvl 3.5gm/dL Normal 013056369291 3.2 - 4.8 [facility] Globulin 1.8gm/dL Normal 871911076059 1.3 - 4.7 [facility] A/G Ratio 1.9 Normal 734594655022 1 - 3.8 [facility] Bili Total 4.1mg/dL Above high normal 405717087297 0.2 - 1. 1 [facility] Phosphorus Lvl 9.2mg/dL Above high normal 049666710336 2.4 - 5.1 [facility] Magnesium Lvl 2.3mg/dL Normal [id number] 1.6 - 2.6 [facility] Bili Direct 3.1mg/dL Above high normal 446228649709 0 - 0.3 [facility] Fibrinogen 173mg/dL Below low normal 220257838590 174 - 514 [facility] PTT 26.3sec Normal 325695857127 22.2 - 35 [facility] PT 21.7sec Above high normal 268753507670 12.2 - 14.8 [facility] INR 1.9 Above high normal 208833457327 0.8 - 1.2 [facility] WBC 18.27k/uL Above high normal 636546994618 4 - 10.8 [facility] RBC 2.45million/uL Below low normal 474171404855 4.2 - 5.5 [facility] Hgb 7.7gm/dL Below low normal 441955249564 12.5 - 16.5 [facility] Hct 21.7% Below low normal 590144830326 37.5 - 49.5 [facility] MCV 88.6FL Normal 746179509420 81 - 100 [facility] MCH 31.4pg Above high normal 121040943571 27 - 31 [facility] MCHC 35.5gm/dL Normal [id number] 31 - 36 [facility] RDW 16.6% Above high normal 040360086253 11.5 - 15.5 [facility] Platelet 83k/uL Below low normal 804706511384 145 - 400 [facility] MPV 12.2FL Above high normal 654223345880 7.5 - 10.4 [facility] NRBC auto 0/100wbcs Normal 145858197576 0 - 2 [facility] NRBC Abs 0k/uL Normal 882864284872 0 - 0.1 [facility] Neutro % 84% Above high normal 031264061702 43 - 75 [facility] Neutro Absolute 15.3k/uL Above high normal 496640254501 1.7 - 8.1 [facility] Imm Gran % 1.1% Above high normal 892096387782 0.1 - 0. 3 [facility] Imm Gran Absolute 0.21k/uL Above high normal 60358123588 7 0.01 - 0.03 [facility] Lymph % 7.8% Below low normal 121051658339 15 - 45 [facility] Lymph Absolute 1.4k/uL Normal 882839583060 0.6 - 4.9 [facility] [place] % 6.9% Normal [id number] 3 - 12 [facility] Monocyte Abs 1.3k/uL Normal 545622088738 0.1 - 1.3 [facility] Eos % 0.1% Normal 440182062144 0 - 6 [facility] Eosinophil Abs 0k/uL Normal 209824938684 0 - 0.7 [facility] Basophil % 0.1% Normal 192087845997 0 - 2 [facility] Basophil Abs 0k/uL Normal 225671098679 0 - 0.2 [facility] GLUCOMETER 128mg/dL Normal 803552804941 65 - 140 [facility] pH Art 7.19 Critically low 751910330522 7.35 - 7.45 [facility] pCO2 Art 32.4mmHg Below low normal 108430371874 35 - 45 [facility] pO2 Art 196.9mmHg Above high normal 986736162698 83 - 108 [facility] TCO2 Art 13mmol/L Critically low 452298236417 22 - 30 [facility] HCO3 Art 12.4mmol/L Below low normal 682583022651 21 - 28 [facility] Base Ex/Def Art -15.8mmol/L Below low normal 053331603700 - 2 [facility] O2 Sat Calc Art 99.5% Normal 474055859480 95 - 100 M [facility] Sodium Lvl 140mmol/L Normal 586091466561 137 - 145 [facility] Potassium Lvl 4.8mmol/L Normal 106695693850 3.5 - 5.1 [facility] Chloride 113mmol/L Above high normal 961119936923 98 - 107 [facility] AGAP 15mmol/L Normal 286093816585 5 - 15 [facility] Glucose Lvl Random 99mg/dL Normal 653950332465 65 - 140 [facility] BUN 72mg/dL Above high normal 656841496317 9 - 20 [facility] Creatinine 3.15mg/dL Above high normal 617969629228 0.66 - 1.5 [facility] Calcium Ionized 1.12mmol/L Normal 714442171841 1.12 - 1.32 [facility] Hct 18% Critically low 479774066531 37.5 - 49.5 [facility] Hgb 6.1gm/dL Critically low 055833752719 12.5 - 16.5 [facility] Lactic Acid Lvl 4.4mmol/L Critically high 632737157683 0.7 - 2 [facility] Tacrolimus Lvl 4.3ng/mL Below low normal 343348987341 5 - 1 9 [facility] GLUCOMETER 140mg/dL Normal 164381817033 65 - 140 [facility] pH Art 7.3 Below low normal 519208927713 7.35 - 7.45 [facility] pCO2 Art 24.7mmHg Below low normal 544660651794 35 - 45 [facility] pO2 Art 71.8mmHg Below low normal 587071761680 83 - 108 [facility] TCO2 Art 12mmol/L Critically low 102802396517 22 - 30 [facility] HCO3 Art 12.2mmol/L Below low normal 088447695330 21 - 28 [facility] Base Ex/Def Art -14.4mmol/L Below low normal 559825331764 - 2 [facility] O2 Sat Calc Art 93.4% Below low normal 007270993105 95 - 100 [facility] Sodium Lvl 140mmol/L Normal 233411825285 137 - 145 [facility] Potassium Lvl 4.8mmol/L Normal 050055109553 3.5 - 5.1 [facility] Chloride 116mmol/L Above high normal 040945413914 98 - 107 [facility] AGAP 13mmol/L Normal 951660300092 5 - 15 [facility] Glucose Lvl Random 124mg/dL Normal 218154991508 65 - 140 [facility] BUN 67mg/dL Above high normal 447786905084 9 - 20 [facility] Creatinine 2.38mg/dL Above high normal 039665905284 0.66 - 1.5 [facility] Calcium Ionized 1.11mmol/L Below low normal 004681027926 1 .12 - 1.32 [facility] Hct 18% Critically low 792353011648 37.5 - 49.5 [facility] Hgb 6gm/dL Critically low 206104172376 12.5 - 16.5 [facility] Lactic Acid Lvl 4.9mmol/L Critically high 795659529178 0.7 - 2 [facility] Temperature Lab 36.5C Normal 019093918648 M [facility] BG FIO2 40 Normal [id number] [facility] GFR [facility] [place] 30mL/min/1.73m2 Below low normal 053460527808 - [facility] Sodium Lvl 143mmol/L Normal 993731051338 136 - 145 [facility] Potassium Lvl 5mmol/L Above high normal 781530540612 3.4 - 4.5 [facility] Chloride 111mmol/L Above high normal 980296440530 98 - 107 [facility] CO2 13mmol/L Critically low 193925434377 20 - 31 [facility] AGAP 19mmol/L Above high normal 836426516508 5 - 15 [facility] Glucose Lvl Random 159mg/dL Above high normal 242047426916 65 - 140 [facility] BUN 61mg/dL Above high normal 102343914598 9 - 23 [facility] Creatinine 2.38mg/dL Above high normal 918973619611 0.6 - 1. 1 [facility] Calcium Lvl 8.1mg/dL Below low normal 613692303416 8.7 - 10.4 [facility] Alk Phos 204unit/L Above high normal 816909779634 46 - 116 [facility] AST 630unit/L Above high normal 601737167715 0 - 33 [facility] ALT 426unit/L Above high normal 334569760892 10 - 49 [facility] Total Protein 5.2gm/dL Below low normal 519871009347 5.7 - 8.2 [facility] Albumin Lvl 3.3gm/dL Normal 977819698306 3.2 - 4.8 [facility] Globulin 1.9gm/dL Normal 734977939739 1.3 - 4.7 [facility] A/G Ratio 1.7 Normal 530447124315 1 - 3.8 [facility] Bili Total 4.6mg/dL Above high normal 155372220504 0.2 - 1. 1 [facility] Phosphorus Lvl 8.2mg/dL Above high normal 844304129876 2.4 - 5.1 [facility] Magnesium Lvl 2.3mg/dL Normal [id number] 1.6 - 2.6 [facility] Bili Direct 3.4mg/dL Above high normal 188204815438 0 - 0.3 [facility] PTT 26.2sec Normal 080686854531 22.2 - 35 [facility] PT 22.7sec Above high normal 344147661777 12.2 - 14.8 [facility] INR 2 Above high normal 881809149035 0.8 - 1.2 [facility] Fibrinogen 184mg/dL Normal 103188098066 174 - 514 [facility] GLUCOMETER 174mg/dL Above high normal 886113495317 65 - 140 [facility] Neutro % Interp See Comment Normal [id number] [facility] WBC 13.54k/uL Above high normal 366811615507 4 - 10.8 [facility] RBC 2.44million/uL Below low normal 602014135795 4.2 - 5.5 [facility] Hgb 7.2gm/dL Below low normal 108309324368 12.5 - 16.5 [facility] Hct 21.8% Below low normal 188827550733 37.5 - 49.5 [facility] MCV 89.3FL Normal [id number] 81 - 100 [facility] MCH 29.5pg Normal 582198416082 27 - 31 [facility] MCHC 33gm/dL Normal [id number] 31 - 36 [facility] RDW 16.1% Above high normal 505355974776 11.5 - 15.5 [facility] Platelet 76k/uL Below low normal 817371132606 145 - 400 [facility] MPV 12.3FL Above high normal 308024544941 7.5 - 10.4 [facility] NRBC auto 0/100wbcs Normal 162544511833 0 - 2 [facility] NRBC Abs 0k/uL Normal 524233679555 0 - 0.1 [facility] Neutro % 86% Above high normal 742040665509 43 - 75 [facility] Neutro Absolute 11.6k/uL Above high normal 436310988245 1.7 - 8.1 [facility] Imm Gran % 1.1% Above high normal [id number] 0.1 - 0. 3 [facility] Imm Gran Absolute 0.15k/uL Above high normal 03077406004 3 0.01 - 0.03 [facility] Lymph % 8.6% Below low normal 395797601623 15 - 45 [facility] Lymph Absolute 1.2k/uL Normal 184549179890 0.6 - 4.9 [facility] [place] % 4.1% Normal [id number] 3 - 12 [facility] Monocyte Abs 0.6k/uL Normal 324344159268 0.1 - 1.3 [facility] Eos % 0.1% Normal [id number] 0 - 6 [facility] Eosinophil Abs 0k/uL Normal 981419653051 0 - 0.7 [facility] Basophil % 0.1% Normal 632212637349 0 - 2 [facility] Basophil Abs 0k/uL Normal 299251300168 0 - 0.2 [facility] GLUCOMETER 177mg/dL Above high normal 586271053783 65 - 140 [facility] GLUCOMETER 198mg/dL Above high normal 993560177679 65 - 140 [facility] GLUCOMETER 217mg/dL Above high normal 607394333681 65 - 140 [facility] PT 21.2sec Above high normal 021032205234 12.2 - 14.8 [facility] INR 1.8 Above high normal 230034266892 0.8 - 1.2 [facility] PTT 26sec Normal [id number] 22.2 - 35 [facility] Fibrinogen 178mg/dL Normal [id number] 174 - 514 [facility] GFR [facility] [place] 43mL/min/1.73m2 Below low normal 994627657567 - [facility] Sodium Lvl 145mmol/L Normal 253471857512 136 - 145 [facility] Potassium Lvl 4.4mmol/L Normal 576328282835 3.4 - 4.5 [facility] Chloride 113mmol/L Above high normal 224986070413 98 - 107 [facility] CO2 14mmol/L Below low normal 426820393545 20 - 31 [facility] AGAP 18mmol/L Above high normal 776346448063 5 - 15 [facility] Glucose Lvl Random 210mg/dL Above high normal 371237882726 65 - 140 [facility] BUN 54mg/dL Above high normal 644381462113 9 - 23 [facility] Creatinine 1.75mg/dL Above high normal 110016612476 0.6 - 1. 1 [facility] Calcium Lvl 8.2mg/dL Below low normal 894144935583 8.7 - 10.4 [facility] Alk Phos 207unit/L Above high normal 729366068544 46 - 116 [facility] AST 763unit/L Above high normal 492100832504 0 - 33 [facility] ALT 440unit/L Above high normal 831575370734 10 - 49 [facility] Total Protein 5.4gm/dL Below low normal 495219470540 5.7 - 8.2 [facility] Albumin Lvl 3.5gm/dL Normal 422066928176 3.2 - 4.8 [facility] Globulin 1.9gm/dL Normal [id number] 1.3 - 4.7 [facility] A/G Ratio 1.8 Normal 863423523933 1 - 3.8 [facility] Bili Total 5.4mg/dL Above high normal 646228629192 0.2 - 1. 1 [facility] Bili Direct 3.7mg/dL Above high normal 402867635419 0 - 0.3 [facility] WBC 10.54k/uL Normal 154445577103 4 - 10.8 [facility] RBC 2.63million/uL Below low normal 232289137235 4.2 - 5.5 [facility] Hgb 8gm/dL Below low normal [id number] 12.5 - 16.5 [facility] Hct 23.3% Below low normal 761814256272 37.5 - 49.5 [facility] MCV 88.6FL Normal 155230181566 81 - 100 [facility] MCH 30.4pg Normal [id number] 27 - 31 [facility] MCHC 34.3gm/dL Normal 742874750731 31 - 36 [facility] RDW 15.9% Above high normal 381967372549 11.5 - 15.5 [facility] Platelet 67k/uL Below low normal 459043082934 145 - 400 [facility] MPV 12.6FL Above high normal 864590078541 7.5 - 10.4 [facility] NRBC auto 0/100wbcs Normal 133084392264 0 - 2 [facility] NRBC Abs 0k/uL Normal 038903012540 0 - 0.1 [facility] Neutro % 86.8% Above high normal 418592768872 43 - 75 [facility] Neutro Absolute 9.2k/uL Above high normal 995092578566 1.7 - 8.1 [facility] Imm Gran % 0.7% Above high normal 476640670226 0.1 - 0. 3 [facility] Imm Gran Absolute 0.07k/uL Above high normal 50797307275 0 0.01 - 0.03 [facility] Lymph % 8.3% Below low normal 342118414634 15 - 45 [facility] Lymph Absolute 0.9k/uL Normal [id number] 0.6 - 4.9 [facility] [place] % 4% Normal 472783476039 3 - 12 [facility] Monocyte Abs 0.4k/uL Normal 567659775102 0.1 - 1.3 [facility] Eos % 0% Normal [id number] 0 - 6 [facility] Eosinophil Abs 0k/uL Normal 901694032297 0 - 0.7 [facility] Basophil % 0.2% Normal 470707422751 0 - 2 [facility] Basophil Abs 0k/uL Normal 308290691377 0 - 0.2 [facility] GLUCOMETER 236mg/dL Above high normal 228909228430 65 - 140 [facility] GLUCOMETER 228mg/dL Above high normal 212168224353 65 - 140 [facility] GLUCOMETER 206mg/dL Above high normal 890634609209 65 - 140 [facility] GLUCOMETER 250mg/dL Above high normal 464287000505 65 - 140 [facility] pH Art 7.38 Normal 220900186575 7.35 - 7.45 [facility] pCO2 Art 24.5mmHg Below low normal 236226693000 35 - 45 [facility] pO2 Art 75.5mmHg Below low normal 664435817691 83 - 108 [facility] TCO2 Art 14mmol/L Below low normal 545545251929 22 - 30 [facility] HCO3 Art 14.3mmol/L Below low normal 965931802421 21 - 28 [facility] Base Ex/Def Art -10.9mmol/L Below low normal 375326614125 - 2 [facility] O2 Sat Calc Art 95% Normal [id number] 95 - 100 [facility] Sodium Lvl 140mmol/L Normal 071459813315 137 - 145 [facility] Potassium Lvl 4.7mmol/L Normal 000323722201 3.5 - 5.1 [facility] Chloride 114mmol/L Above high normal 704165315364 98 - 107 [facility] AGAP 13mmol/L Normal 248810286812 5 - 15 [facility] Glucose Lvl Random 212mg/dL Above high normal 565892106276 65 - 140 [facility] BUN 52mg/dL Above high normal 612099059713 9 - 20 [facility] Creatinine 1.64mg/dL Above high normal 862703976562 0.66 - 1.5 [facility] Calcium Ionized 1.09mmol/L Below low normal 985812270897 1 .12 - 1.32 [facility] Hct 19% Critically low 667699494428 37.5 - 49.5 [facility] Hgb 6.4gm/dL Critically low 169920451209 12.5 - 16.5 [facility] Lactic Acid Lvl 4mmol/L Critically high 790492236428 0.7 - 2 [facility] GLUCOMETER 273mg/dL Above high normal 535882497367 65 - 140 [facility] GLUCOMETER 266mg/dL Above high normal 365130128565 65 - 140 [facility] Neutro % Interp See Comment Normal [id number] [facility] WBC 8.41k/uL Normal 831116027781 4 - 10.8 [facility] RBC 2.17million/uL Below low normal 951941191195 4.2 - 5.5 [facility] Hgb 6.4gm/dL Critically low 156038999193 12.5 - 16.5 [facility] Hct 18.6% Critically low 853267943981 37.5 - 49.5 [facility] MCV 85.7FL Normal 764031330389 81 - 100 [facility] MCH 29.5pg Normal 075875825593 27 - 31 [facility] MCHC 34.4gm/dL Normal 608331686134 31 - 36 [facility] RDW 16.4% Above high normal 395946325667 11.5 - 15.5 [facility] Platelet 64k/uL Below low normal 393070063187 145 - 400 [facility] MPV 12.9FL Above high normal 589298151571 7.5 - 10.4 [facility] NRBC auto 0/100wbcs Normal 274840072631 0 - 2 [facility] NRBC Abs 0k/uL Normal 155945745186 0 - 0.1 [facility] Neutro % 86.3% Above high normal 972126345963 43 - 75 [facility] Neutro Absolute 7.3k/uL Normal 152098815829 1.7 - 8.1 [facility] Imm Gran % 0.5% Above high normal 330907419456 0.1 - 0. 3 [facility] Imm Gran Absolute 0.04k/uL Above high normal 52299222187 7 0.01 - 0.03 [facility] Lymph % 7.7% Below low normal 049529791699 15 - 45 [facility] Lymph Absolute 0.6k/uL Normal 374940816440 0.6 - 4.9 [facility] [place] % 5.4% Normal 523660660497 3 - 12 [facility] Monocyte Abs 0.4k/uL Normal 471977799325 0.1 - 1.3 [facility] Eos % 0% Normal 896202731886 0 - 6 [facility] Eosinophil Abs 0k/uL Normal 667167219689 0 - 0.7 [facility] Basophil % 0.1% Normal 531006396078 0 - 2 [facility] Basophil Abs 0k/uL Normal 571664130458 0 - 0.2 [facility] GFR Center [place] 48mL/min/1.73m2 Below low normal 807034842039 - [facility] Bili Direct 4.2mg/dL Above high normal 547187473402 0 - 0.3 [facility] Sodium Lvl 146mmol/L Above high normal 450937721896 136 - 14 5 [facility] Potassium Lvl 4.5mmol/L Normal 837255793082 3.4 - 4.5 [facility] Chloride 112mmol/L Above high normal 153356264085 98 - 107 [facility] CO2 15mmol/L Below low normal 709987687315 20 - 31 [facility] AGAP 19mmol/L Above high normal 742139388257 5 - 15 [facility] Glucose Lvl Random 236mg/dL Above high normal 110182537581 65 - 140 [facility] BUN 46mg/dL Above high normal 464897193300 9 - 23 [facility] Creatinine 1.6mg/dL Above high normal 003195392933 0.6 - 1. 1 [facility] Calcium Lvl 8.4mg/dL Below low normal 345938618159 8.7 - 10.4 [facility] Alk Phos 207unit/L Above high normal 130145829920 46 - 116 [facility] AST 890unit/L Above high normal 076064697370 0 - 33 [facility] ALT 448unit/L Above high normal 175122191490 10 - 49 [facility] Total Protein 5.8gm/dL Normal 054055095819 5.7 - 8.2 [facility] Albumin Lvl 3.8gm/dL Normal 796777710101 3.2 - 4.8 [facility] Globulin 2gm/dL Normal 761704281095 1.3 - 4.7 [facility] A/G Ratio 1.9 Normal 484921980749 1 - 3.8 [facility] Bili Total 5.9mg/dL Above high normal 970669575268 0.2 - 1. 1 [facility] PT 22sec Above high normal 967583152361 12.2 - 14.8 [facility] INR 1.9 Above high normal 842534826469 0.8 - 1.2 [facility] Fibrinogen 199mg/dL Normal 112077164016 174 - 514 [facility] PTT 27.3sec Normal 704252551842 22.2 - 35 [facility] pH Art 7.37 Normal 841629582110 7.35 - 7.45 [facility] pCO2 Art 25.4mmHg Below low normal 899924564768 35 - 45 [facility] pO2 Art 67.2mmHg Below low normal 162215055132 83 - 108 [facility] HCO3 Art 14.7mmol/L Below low normal 441705640146 21 - 28 [facility] TCO2 Art 16mmol/L Below low normal 979876143160 22 - 30 [facility] Base Ex/Def Art -10.6mmol/L Below low normal 298583462260 - 2 [facility] O2 Sat Calc Art 93.2% Below low normal 748074010953 95 - 100 [facility] Lactic Acid Lvl 4.5mmol/L Critically high 404633809558 0.7 - 2 [facility] Temperature Lab 36.8C Normal 845367023007 [facility] EBV Ab VCA, IgG >750.0 Above high normal 848862781184 0 - 21.9 [facility] EBV Nuclear Ag IgG >600.0 Above high normal 365690180383 0 - 21.9 [facility] EBV IgG/EarlyAg >150.0 Above high normal 543184942476 0 - 10.9 [facility] EBV Ab VCA, IgM 12.4unit/mL Normal 240614854826 0 - 43.9 [facility] PT 25.9sec Above high normal 626126122152 12.2 - 14.8 [facility] INR 2.4 Above high normal 466325352104 0.8 - 1.2 [facility] PTT 29.5sec Normal 283090135051 22.2 - 35 [facility] Fibrinogen 175mg/dL Normal 337954596150 174 - 514 [facility] GFR Center [place] 54mL/min/1.73m2 Below low normal 543595350706 - [facility] Bili Direct 4.7mg/dL Above high normal 435130529795 0 - 0.3 [facility] Sodium Lvl 145mmol/L Normal [id number] 136 - 145 [facility] Potassium Lvl 4.4mmol/L Normal [id number] 3.4 - 4.5 [facility] Chloride 114mmol/L Above high normal [id number] 98 - 107 [facility] CO2 14mmol/L Below low normal [id number] 20 - 31 [facility] AGAP 17mmol/L Above high normal 940281040149 5 - 15 [facility] Glucose Lvl Random 230mg/dL Above high normal 955025791148 65 - 140 [facility] BUN 41mg/dL Above high normal 974844922961 9 - 23 [facility] Creatinine 1.45mg/dL Above high normal [id number] 0.6 - 1. 1 [facility] Calcium Lvl 8.3mg/dL Below low normal 011758225813 8.7 - 10.4 [facility] Alk Phos 197unit/L Above high normal [id number] 46 - 116 [facility] AST 917unit/L Above high normal 022499112508 0 - 33 [facility] ALT 443unit/L Above high normal [id number] 10 - 49 [facility] Total Protein 5.4gm/dL Below low normal 538508683773 5.7 - 8.2 [facility] Albumin Lvl 3.6gm/dL Normal [id number] 3.2 - 4.8 [facility] Globulin 1.8gm/dL Normal [id number] 1.3 - 4.7 [facility] A/G Ratio 2 Normal [id number] 1 - 3.8 [facility] Bili Total 6.2mg/dL Above high normal [id number] 0.2 - 1. 1 [facility] WBC 8.6k/uL Normal [id number] 4 - 10.8 [facility] RBC 2.41million/uL Below low normal [id number] 4.2 - 5.5 [facility] Hgb 7.3gm/dL Below low normal 292379969332 12.5 - 16.5 [facility] Hct 21.3% Below low normal [id number] 37.5 - 49.5 [facility] MCV 88.4FL Normal [id number] 81 - 100 [facility] MCH 30.3pg Normal [id number] 27 - 31 [facility] MCHC 34.3gm/dL Normal [id number] 31 - 36 [facility] RDW 16.2% Above high normal [id number] 11.5 - 15.5 [facility] Platelet 61k/uL Below low normal [id number] 145 - 400 [facility] MPV 11.8FL Above high normal [id number] 7.5 - 10.4 [facility] NRBC auto 0/100wbcs Normal 827438676028 0 - 2 [facility] NRBC Abs 0k/uL Normal [id number] 0 - 0.1 [facility] Neutro % 87.3% Above high normal [id number] 43 - 75 [facility] Neutro Absolute 7.5k/uL Normal [id number] 1.7 - 8.1 [facility] Imm Gran % 0.8% Above high normal 185933373915 0.1 - 0. 3 [facility] Imm Gran Absolute 0.07k/uL Above high normal 75280815457 5 0.01 - 0.03 [facility] Lymph % 7.6% Below low normal [id number] 15 - 45 [facility] Lymph Absolute 0.6k/uL Normal [id number] 0.6 - 4.9 [facility] [place] % 4.2% Normal [id number] 3 - 12 [facility] Monocyte Abs 0.4k/uL Normal [id number] 0.1 - 1.3 [facility] Eos % 0% Normal [id number] 0 - 6 [facility] Eosinophil Abs 0k/uL Normal [id number] 0 - 0.7 [facility] Basophil % 0.1% Normal 0 - 2 [facility] Basophil Abs 0k/uL Normal 338620818511 0 - 0.2 [facility] pH Art 7.33 Below low normal 656008347396 7.35 - 7.45 [facility] pCO2 Art 24.8mmHg Below low normal 513917069072 35 - 45 [facility] pO2 Art 74.8mmHg Below low normal 554113054148 83 - 108 [facility] HCO3 Art 13.1mmol/L Below low normal 118462822015 21 - 28 [facility] TCO2 Art 14mmol/L Below low normal 459292977692 22 - 30 [facility] Base Ex/Def Art -12.8mmol/L Below low normal 645434572100 - 2 [facility] O2 Sat Calc Art 94.4% Below low normal 470469510140 95 - 100 [facility] Lactic Acid Lvl 4.6mmol/L Critically high 893009549869 0.7 - 2 [facility] Temperature Lab 36.8C Normal 369564585710 [facility] GLUCOMETER 252mg/dL Above high normal 799966508792 65 - 140 [facility] CMV IgM Normal 143781449333 - [facility] GFR Center [place] 63mL/min/1.73m2 Normal 125560744703 - [facility] Sodium Lvl 142mmol/L Normal 574455697062 136 - 145 [facility] Potassium Lvl 4.5mmol/L Normal 516416666328 3.4 - 4.5 [facility] Chloride 111mmol/L Above high normal 590408699268 98 - 107 [facility] CO2 15mmol/L Below low normal 019147687433 20 - 31 [facility] AGAP 16mmol/L Above high normal 180335078858 5 - 15 [facility] Glucose Lvl Random 233mg/dL Above high normal 851993354962 65 - 140 [facility] BUN 34mg/dL Above high normal 248742303902 9 - 23 [facility] Creatinine 1.29mg/dL Above high normal 211717599572 0.6 - 1. 1 [facility] Calcium Lvl 8.7mg/dL Normal 196088997783 8.7 - 10.4 [facility] Alk Phos 240unit/L Above high normal 248762259803 46 - 116 [facility] AST 1276unit/L Above high normal 651928880716 0 - 33 [facility] ALT 524unit/L Above high normal 680936767715 10 - 49 [facility] Total Protein 6gm/dL Normal 303982185241 5.7 - 8.2 [facility] Albumin Lvl 3.6gm/dL Normal 158906372883 3.2 - 4.8 [facility] Globulin 2.4gm/dL Normal 054008568620 1.3 - 4.7 [facility] A/G Ratio 1.5 Normal 745652332415 1 - 3.8 [facility] Bili Total 8.6mg/dL Above high normal 073982294833 0.2 - 1. 1 [facility] Bili Direct 6.4mg/dL Above high normal 256010358006 0 - 0.3 [facility] Neutro % Interp See Comment Normal [id number] [facility] WBC 10.66k/uL Normal 809380126280 4 - 10.8 [facility] RBC 3.11million/uL Below low normal 750060745443 4.2 - 5.5 [facility] Hgb 9.2gm/dL Below low normal 057714300363 12.5 - 16.5 [facility] Hct 27.2% Below low normal 645074830059 37.5 - 49.5 [facility] MCV 87.5FL Normal 755649599495 81 - 100 [facility] MCH 29.6pg Normal 27 - 31 [facility] MCHC 33.8gm/dL Normal 205859893742 31 - 36 [facility] RDW 16% Above high normal 282789529324 11.5 - 15.5 [facility] Platelet 84k/uL Below low normal 244939138664 145 - 400 [facility] MPV 12FL Above high normal 526610687527 7.5 - 10.4 [facility] NRBC auto 0/100wbcs Normal 0 - 2 [facility] NRBC Abs 0k/uL Normal 0 - 0.1 [facility] Neutro % 88.2% Above high normal 43 - 75 [facility] Neutro Absolute 9.4k/uL Above high normal 953820058996 1.7 - 8.1 [facility] Imm Gran % 0.8% Above high normal 543313555934 0.1 - 0. 3 [facility] Imm Gran Absolute 0.08k/uL Above high normal 91404419654 1 0.01 - 0.03 [facility] Lymph % 7.1% Below low normal 916526680847 15 - 45 [facility] Lymph Absolute 0.8k/uL Normal [id number] 0.6 - 4.9 [facility] [place] % 3.8% Normal 953572076106 3 - 12 [facility] Monocyte Abs 0.4k/uL Normal [id number] 0.1 - 1.3 [facility] Eos % 0% Normal 0 - 6 [facility] Eosinophil Abs 0k/uL Normal 0 - 0.7 [facility] Basophil % 0.1% Normal 0 - 2 [facility] Basophil Abs 0k/uL Normal 0 - 0.2 [facility] PT 24.1sec Above high normal 281085488827 12.2 - 14.8 [facility] INR 2.2 Above high normal 549800394963 0.8 - 1.2 [facility] Fibrinogen 216mg/dL Normal 891305612853 174 - 514 [facility] PTT 29.5sec Normal 624107790310 22.2 - 35 [facility] pH Art 7.35 Normal [id number] 7.35 - 7.45 [facility] pCO2 Art 24mmHg Below low normal 262791678292 35 - 45 [facility] pO2 Art 70.9mmHg Below low normal 603429828428 83 - 108 [facility] TCO2 Art 13mmol/L Critically low 977299901337 22 - 30 [facility] HCO3 Art 13.3mmol/L Below low normal 397476614541 21 - 28 [facility] Base Ex/Def Art -12.1mmol/L Below low normal 772362835210 - 2 [facility] O2 Sat Calc Art 93.3% Below low normal 424486538040 95 - 100 [facility] Sodium Lvl 142mmol/L Normal 773111656425 137 - 145 [facility] Potassium Lvl 4.4mmol/L Normal 390783034517 3.5 - 5.1 [facility] Chloride 121mmol/L Above high normal 905153617797 98 - 107 [facility] AGAP 9mmol/L Normal 472286779296 5 - 15 [facility] Glucose Lvl Random 222mg/dL Above high normal 886976607369 65 - 140 [facility] BUN 30mg/dL Above high normal 016562520405 9 - 20 [facility] Creatinine 1.11mg/dL Normal 279786945269 0.66 - 1.5 [facility] Calcium Ionized 1.17mmol/L Normal 457790731766 1.12 - 1.32 [facility] Hct 27% Below low normal 541754310285 37.5 - 49.5 [facility] Hgb 9.1gm/dL Below low normal 347239465144 12.5 - 16.5 [facility] Lactic Acid Lvl 4.9mmol/L Critically high 021539121369 0.7 - 2 [facility] Temperature Lab 37.5C Normal 481044594986 [facility] GLUCOMETER 258mg/dL Above high normal 183255280636 65 - 140 [facility] CMV IgG Abnormal 072078822310 - [facility] GLUCOMETER 253mg/dL Above high normal 210490342612 65 - 140 [facility] Tacrolimus Lvl <1.0 Below low normal 892570296129 5 - 1 9 [facility] AST 1975unit/L Above high normal 390566957501 0 - 33 [facility] GFR Center [place] 85mL/min/1.73m2 Normal 776159020143 - [facility] Sodium Lvl 144mmol/L Normal [id number] 136 - 145 [facility] Potassium Lvl 4.5mmol/L Normal 695833209466 3.4 - 4.5 [facility] Chloride 113mmol/L Above high normal 955955960705 98 - 107 [facility] CO2 18mmol/L Below low normal 941333735201 20 - 31 [facility] AGAP 13mmol/L Normal [id number] 5 - 15 [facility] Glucose Lvl Random 225mg/dL Above high normal 912237337905 65 - 140 [facility] BUN 25mg/dL Above high normal 264204151345 9 - 23 [facility] Creatinine 1mg/dL Normal 958402197374 0.6 - 1.1 [facility] Calcium Lvl 8.9mg/dL Normal 991197833660 8.7 - 10.4 [facility] Alk Phos 236unit/L Above high normal 336344495371 46 - 116 [facility] ALT 558unit/L Above high normal 719650990851 10 - 49 [facility] Total Protein 5.6gm/dL Below low normal 161996517329 5.7 - 8.2 [facility] Albumin Lvl 3.6gm/dL Normal 084874838189 3.2 - 4.8 [facility] Globulin 2gm/dL Normal 556634203540 1.3 - 4.7 [facility] A/G Ratio 1.8 Normal [id number] 1 - 3.8 [facility] Bili Total 10.1mg/dL Above high normal 239770061326 0.2 - 1. 1 [facility] Bili Direct 7.4mg/dL Above high normal 698699798172 0 - 0.3 [facility] PT 23.8sec Above high normal [id number] 12.2 - 14.8 [facility] INR 2.1 Above high normal 063710928784 0.8 - 1.2 [facility] Fibrinogen 216mg/dL Normal 246271632755 174 - 514 [facility] PTT 31.6sec Normal 527391381841 22.2 - 35 [facility] WBC 11.32k/uL Above high normal 974223746210 4 - 10.8 [facility] RBC 2.97million/uL Below low normal 896564286719 4.2 - 5.5 [facility] Hgb 9gm/dL Below low normal 287870456368 12.5 - 16.5 [facility] Hct 25.8% Below low normal 053270814414 37.5 - 49.5 [facility] MCV 86.9FL Normal 163906256219 81 - 100 [facility] MCH 30.3pg Normal 906490972530 27 - 31 [facility] MCHC 34.9gm/dL Normal 527538784063 31 - 36 [facility] RDW 15.9% Above high normal 878741287627 11.5 - 15.5 [facility] Platelet 99k/uL Below low normal 371821908166 145 - 400 [facility] MPV 11FL Above high normal 363785689067 7.5 - 10.4 [facility] NRBC auto 0/100wbcs Normal 893055220789 0 - 2 [facility] NRBC Abs 0k/uL Normal [id number] 0 - 0.1 [facility] Neutro % 90.8% Above high normal 961497613544 43 - 75 [facility] Neutro Absolute 10.3k/uL Above high normal 390696821097 1.7 - 8.1 [facility] Imm Gran % 0.7% Above high normal 252293953731 0.1 - 0. 3 [facility] Imm Gran Absolute 0.08k/uL Above high normal 60986801549 1 0.01 - 0.03 [facility] Lymph % 5.3% Below low normal [id number] 15 - 45 [facility] Lymph Absolute 0.6k/uL Normal 929068288664 0.6 - 4.9 [facility] [place] % 2.9% Below low normal 849748317304 3 - 12 [facility] Monocyte Abs 0.3k/uL Normal 744074105416 0.1 - 1.3 [facility] Eos % 0.1% Normal [id number] 0 - 6 [facility] Eosinophil Abs 0k/uL Normal 348477360751 0 - 0.7 [facility] Basophil % 0.2% Normal 268680523419 0 - 2 [facility] Basophil Abs 0k/uL Normal 594996298086 0 - 0.2 [facility] pH Art 7.34 Below low normal 280079852565 7.35 - 7.45 [facility] pCO2 Art 32.9mmHg Below low normal 922708287431 35 - 45 [facility] pO2 Art 124.9mmHg Above high normal 058413453307 83 - 108 [facility] TCO2 Art 18mmol/L Below low normal 506704966549 22 - 30 [facility] HCO3 Art 17.7mmol/L Below low normal 535757183948 21 - 28 [facility] Base Ex/Def Art -8.1mmol/L Below low normal 585443518592 - 2 [facility] O2 Sat Calc Art 98.7% Normal 308454498266 95 - 100 [facility] Sodium Lvl 141mmol/L Normal [id number] 137 - 145 [facility] Potassium Lvl 4.5mmol/L Normal 597667705562 3.5 - 5.1 [facility] Chloride 114mmol/L Above high normal [id number] 98 - 107 [facility] AGAP 10mmol/L Normal [id number] 5 - 15 [facility] Glucose Lvl Random 203mg/dL Above high normal 696207805163 65 - 140 [facility] BUN 23mg/dL Above high normal 660109219012 9 - 20 [facility] Creatinine 0.77mg/dL Normal [id number] 0.66 - 1.5 [facility] Calcium Ionized 1.23mmol/L Normal [id number] 1.12 - 1.32 [facility] Hct 24% Below low normal 909111487513 37.5 - 49.5 [facility] Hgb 8.3gm/dL Below low normal [id number] 12.5 - 16.5 [facility] Lactic Acid Lvl 1.6mmol/L Normal 052384417857 0.7 - 2 [facility] pH Art 7.34 Below low normal 206861012285 7.35 - 7.45 [facility] pCO2 Art 36.1mmHg Normal 357315240816 35 - 45 [facility] pO2 Art 129.9mmHg Above high normal 748043003879 83 - 108 [facility] TCO2 Art 19mmol/L Below low normal 837871705976 22 - 30 [facility] HCO3 Art 19.4mmol/L Below low normal 224443464716 21 - 28 [facility] Base Ex/Def Art -6.3mmol/L Below low normal 453508307383 - 2 [facility] O2 Sat Calc Art 98.7% Normal [id number] 95 - 100 [facility] Sodium Lvl 141mmol/L Normal 814328337548 137 - 145 [facility] Potassium Lvl 4.3mmol/L Normal [id number] 3.5 - 5.1 [facility] Chloride 113mmol/L Above high normal 028530388535 98 - 107 [facility] AGAP 10mmol/L Normal [id number] 5 - 15 [facility] Glucose Lvl Random 202mg/dL Above high normal 225553629219 65 - 140 [facility] Creatinine 0.68mg/dL Normal 961220274133 0.66 - 1.5 [facility] Calcium Ionized 1.26mmol/L Normal 815445291589 1.12 - 1.32 [facility] Hct 23% Below low normal 009608178666 37.5 - 49.5 [facility] Hgb 7.9gm/dL Below low normal [id number] 12.5 - 16.5 [facility] Lactic Acid Lvl 0.9mmol/L Normal 729187835792 0.7 - 2 [facility] Temperature Lab 37.4C Normal 889298571375 [facility] BG FIO2 40 Normal [id number] [facility] BUN TNP Normal 788790400829 9 - 20 [facility] pH Art 7.36 Normal [id number] 7.35 - 7.45 [facility] pCO2 Art 34.6mmHg Below low normal 667796064098 35 - 45 [facility] pO2 Art 118.5mmHg Above high normal 779351202397 83 - 108 [facility] TCO2 Art 19mmol/L Below low normal 830462462541 22 - 30 [facility] HCO3 Art 19.6mmol/L Below low normal 074898179678 21 - 28 [facility] Base Ex/Def Art -5.7mmol/L Below low normal 462659788279 - 2 [facility] O2 Sat Calc Art 98.4% Normal 044799399218 95 - 100 [facility] Sodium Lvl 142mmol/L Normal [id number] 137 - 145 [facility] Potassium Lvl 4.3mmol/L Normal [id number] 3.5 - 5.1 [facility] Chloride 112mmol/L Above high normal 233028193810 98 - 107 [facility] AGAP 12mmol/L Normal 359615747653 5 - 15 [facility] Glucose Lvl Random 192mg/dL Above high normal 636888531734 65 - 140 [facility] BUN 20mg/dL Normal 014885203473 9 - 20 [facility] Creatinine 0.64mg/dL Below low normal 232099419138 0.66 - 1.5 [facility] Calcium Ionized 1.27mmol/L Normal 056047952893 1.12 - 1.32 [facility] Hct 23% Below low normal 802230144178 37.5 - 49.5 [facility] Hgb 7.9gm/dL Below low normal 954283303917 12.5 - 16.5 [facility] Lactic Acid Lvl 0.8mmol/L Normal 504692216470 0.7 - 2 [facility] Temperature Lab 37.5C Normal 728190062966 [facility] BG FIO2 40 Normal 909175642482 [facility] GLUCOMETER 255mg/dL Above high normal 020357614946 65 - 140 [facility] pH Art 7.42 Normal 778674854529 7.35 - 7.45 [facility] pCO2 Art 30.7mmHg Below low normal 045132967667 35 - 45 [facility] pO2 Art 124.8mmHg Above high normal 155239639932 83 - 108 [facility] TCO2 Art 20mmol/L Below low normal 510372720490 22 - 30 [facility] HCO3 Art 19.9mmol/L Below low normal 074414408636 21 - 28 [facility] Base Ex/Def Art -4.5mmol/L Below low normal 330425390144 - 2 [facility] O2 Sat Calc Art 98.9% Normal 684251500835 95 - 100 [facility] Sodium Lvl 142mmol/L Normal 860871770794 137 - 145 [facility] Potassium Lvl 4mmol/L Normal 787617202766 3.5 - 5.1 [facility] Chloride 110mmol/L Above high normal 665469528309 98 - 107 [facility] AGAP 14mmol/L Normal 558941306923 5 - 15 [facility] Glucose Lvl Random 152mg/dL Above high normal 739921443275 65 - 140 [facility] BUN 19mg/dL Normal 923611463776 9 - 20 [facility] Creatinine 0.41mg/dL Below low normal 048290274959 0.66 - 1.5 [facility] Calcium Ionized 1.27mmol/L Normal [id number] 1.12 - 1.32 [facility] Hct 22% Below low normal 086099211517 37.5 - 49.5 [facility] Hgb 7.6gm/dL Below low normal 196575447137 12.5 - 16.5 [facility] Lactic Acid Lvl <0.7 Below low normal 642519624125 0.7 - 2 [facility] Temperature Lab 37.4C Normal 865376724977 [facility] BG FIO2 40 Normal [id number] [facility] pH [place] 7.42 Normal 400934063664 7.32 - 7.42 [facility] pCO2 [place] 30.7mmHg Below low normal 902174177645 41 - 51 [facility] pO2 [place] 169.7mmHg Above high normal 018271219796 25 - 40 [facility] HCO3 [place] 20mmol/L Normal 084418579019 18 - 23 [facility] Base Ex/Def [place] -4.3mmol/L Below low normal 461846857054 - 2 [facility] O2 Sat [place] Calc 99.6% Above high normal 862925873879 40 - 70 [facility] Temperature Lab 37.5C Normal 018023848670 [facility] BG FIO2 45 Normal [id number] [facility] Sodium Lvl 142mmol/L Normal 137 - 145 [facility] Potassium Lvl 3.8mmol/L Normal 789296419170 3.5 - 5.1 [facility] Chloride 110mmol/L Above high normal 028157430196 98 - 107 [facility] TCO2 [place] 20mmol/L Below low normal 391719610179 22 - 30 [facility] AGAP 13mmol/L Normal [id number] 5 - 15 [facility] Glucose Lvl Random 156mg/dL Above high normal 669983353967 65 - 140 [facility] BUN 18mg/dL Normal 321777472879 9 - 20 [facility] Creatinine <0.30 Below low normal [id number] 0.66 - 1.5 [facility] Calcium Ionized 1.3mmol/L Normal 475994506994 1.12 - 1.32 [facility] Lactic Acid Lvl <0.7 Below low normal 196388891889 0.7 - 2 [facility] Hgb 8.1gm/dL Below low normal 633941231397 12.5 - 16.5 [facility] Hct 24% Below low normal 110031917308 37.5 - 49.5 [facility] pH Art 7.43 Normal 371653832598 7.35 - 7.45 [facility] pCO2 Art 30.3mmHg Below low normal 586604290614 35 - 45 [facility] pO2 Art 138.5mmHg Above high normal 180166549758 83 - 108 [facility] TCO2 Art 20mmol/L Below low normal 914389981886 22 - 30 [facility] HCO3 Art 20mmol/L Below low normal 432724068648 - 28 [facility] Base Ex/Def Art -4.3mmol/L Below low normal 666873721631 - 2 [facility] O2 Sat Calc Art 99.2% Normal 477397879069 95 - 100 [facility] Sodium Lvl 144mmol/L Normal 381917167149 137 - 145 [facility] Potassium Lvl 3.6mmol/L Normal 033436222258 3.5 - 5.1 [facility] Chloride 116mmol/L Above high normal 638849823247 98 - 107 [facility] AGAP 9mmol/L Normal 688743982088 5 - 15 [facility] Glucose Lvl Random 144mg/dL Above high normal 594264569480 65 - 140 [facility] BUN 17mg/dL Normal 693372566661 9 - 20 [facility] Creatinine 0.95mg/dL Normal 141397288132 0.66 - 1.5 [facility] Calcium Ionized 1.35mmol/L Above high normal 174047863335 1.12 - 1.32 [facility] Hct 26% Below low normal 910004801136 37.5 - 49.5 [facility] Hgb 8.7gm/dL Below low normal 174407683927 12.5 - 16.5 [facility] Lactic Acid Lvl 1.4mmol/L Normal 879357701820 0.7 - 2 [facility] Temperature Lab 37.4C Normal 739391435793 [facility] Fibrinogen 155mg/dL Below low normal 261057238284 174 - 514 [facility] GFR Center [place] 85mL/min/1.73m2 Normal 776833741052 - [facility] Sodium Lvl 146mmol/L Above high normal 182258321728 136 - 14 5 [facility] Potassium Lvl 3.6mmol/L Normal 806952567435 3.4 - 4.5 [facility] Chloride 116mmol/L Above high normal 371772231699 98 - 107 [facility] CO2 22mmol/L Normal 910071173369 20 - 31 [facility] AGAP 8mmol/L Normal 971516779989 5 - 15 [facility] Glucose Lvl Random 125mg/dL Normal 277678136483 65 - 140 [facility] BUN 16mg/dL Normal 252316170094 9 - 23 [facility] Creatinine 1mg/dL Normal 746582667496 0.6 - 1.1 [facility] Calcium Lvl 9.4mg/dL Normal 816640125784 8.7 - 10.4 [facility] Alk Phos 230unit/L Above high normal 492387234505 46 - 116 [facility] AST 3144unit/L Above high normal 167237234444 0 - 33 [facility] ALT 636unit/L Above high normal 209910840325 10 - 49 [facility] Total Protein 5.7gm/dL Normal 277190779034 5.7 - 8.2 [facility] Albumin Lvl 3.8gm/dL Normal 055095102657 3.2 - 4.8 [facility] Globulin 1.9gm/dL Normal 999638118891 1.3 - 4.7 [facility] A/G Ratio 2 Normal 152202144964 1 - 3.8 [facility] Bili Total 8.6mg/dL Above high normal 946303847813 0.2 - 1. 1 [facility] Phosphorus Lvl 3.7mg/dL Normal 791857530700 2.4 - 5.1 [facility] Magnesium Lvl 1.8mg/dL Normal 866247156462 1.6 - 2.6 [facility] Bili Direct 4.9mg/dL Above high normal 747800798850 0 - 0.3 [facility] PTT 46.3sec Above high normal 858757208236 22.2 - 35 [facility] PT 24sec Above high normal 015289380675 12.2 - 14.8 [facility] INR 2.2 Above high normal 524745605380 0.8 - 1.2 [facility] WBC 6.86k/uL Normal 413289004123 4 - 10.8 [facility] RBC 2.9million/uL Below low normal 126248150238 4.2 - 5.5 [facility] Hgb 8.7gm/dL Below low normal 372579838085 12.5 - 16.5 [facility] Hct 25.2% Below low normal [id number] 37.5 - 49.5 [facility] MCV 86.9FL Normal 204739946522 81 - 100 [facility] MCH 30pg Normal [id number] 27 - 31 [facility] MCHC 34.5gm/dL Normal 322746362059 31 - 36 [facility] RDW 14.9% Normal [id number] 11.5 - 15.5 [facility] Platelet 79k/uL Below low normal 195596684341 145 - 400 [facility] MPV 11.2FL Above high normal 818755061346 7.5 - 10.4 [facility] NRBC auto 0/100wbcs Normal 336062066146 0 - 2 [facility] NRBC Abs 0k/uL Normal 033757318165 0 - 0.1 [facility] Neutro % 89.1% Above high normal 014700934671 43 - 75 [facility] Neutro Absolute 6.1k/uL Normal 774572649541 1.7 - 8.1 [facility] Imm Gran % 0.4% Above high normal 016781263641 0.1 - 0. 3 [facility] Imm Gran Absolute 0.03k/uL Normal 672477832849 0.01 - 0.03 [facility] Lymph % 5% Below low normal 465847260613 15 - 45 [facility] Lymph Absolute 0.3k/uL Below low normal 415576272878 0.6 - 4.9 [facility] [place] % 5.1% Normal 858303075289 3 - 12 [facility] Monocyte Abs 0.4k/uL Normal 550239513206 0.1 - 1.3 [facility] Eos % 0.3% Normal 356592450952 0 - 6 [facility] Eosinophil Abs 0k/uL Normal 879672063209 0 - 0.7 [facility] Basophil % 0.1% Normal 443190559743 0 - 2 [facility] Basophil Abs 0k/uL Normal 838349896059 0 - 0.2 [facility] pH Art 7.42 Normal 995433421179 7.35 - 7.45 [facility] pCO2 Art 31.3mmHg Below low normal 858893306676 35 - 45 [facility] pO2 Art 260.9mmHg Above high normal 834417193819 83 - 108 [facility] TCO2 Art 20mmol/L Below low normal 349188865623 22 - 30 [facility] HCO3 Art 20.2mmol/L Below low normal 011143873668 - [facility] Base Ex/Def Art -4.4mmol/L Below low normal 153477614834 - 2 [facility] O2 Sat Calc Art 99.9% Normal 396068273119 95 - 100 [facility] Sodium Lvl 145mmol/L Normal 216334769296 137 - 145 [facility] Potassium Lvl 3.5mmol/L Normal 307857798935 3.5 - 5.1 [facility] Chloride 114mmol/L Above high normal 489909699594 98 - 107 [facility] AGAP 12mmol/L Normal 050605104190 5 - 15 [facility] Glucose Lvl Random 117mg/dL Normal 517057231411 65 - 140 [facility] BUN 16mg/dL Normal 619836033551 9 - 20 [facility] Creatinine 0.98mg/dL Normal 667762891718 0.66 - 1.5 [facility] Calcium Ionized 1.37mmol/L Above high normal 438192839247 1.12 - 1.32 [facility] Hct 25% Below low normal 464705946486 37.5 - 49.5 [facility] Hgb 8.5gm/dL Below low normal 438491816584 12.5 - 16.5 [facility] Lactic Acid Lvl 1.7mmol/L Normal 735514474776 0.7 - 2 [facility] Temperature Lab 36.6C Normal 431943230839 [facility] BG FIO2 70 Normal [id number] [facility] pH Art 7.4 Normal [id number] 7.35 - 7.45 [facility] pCO2 Art 31mmHg Below low normal 705689397241 35 - 45 [facility] pO2 Art 221mmHg Above high normal 683833110840 83 - 108 [facility] HCO3 Art 19.2mmol/L Below low normal 251730093163 [facility] Base Ex/Def Art -4.9mmol/L Below low normal 929239212863 - 2 [facility] O2 Sat Calc Art 99.8% Normal 821761919688 95 - 100 [facility] O2 Sat Christos Art 100% Normal 574045036613 95 - 100 [facility] Temperature Lab 37C Normal 608703815439 M [facility] pH Art Temp C 7.4 Normal 7.35 - 7.45 [facility] pCO2 Art Temp C 31mmHg Below low normal 35 - 45 [facility] pO2 Art Temp C 221mmHg Above high normal 83 - 108 [facility] O2 Content Art 12.3Vol% Below low normal [id number] 17 - 21 [facility] Total Hgb Art 8.7gm/dL Below low normal 443476809874 12. 5 - 16.5 [facility] Oxyhgb Art 95.7% Normal 94 - 97 [facility] COHB Level Art 3.2% Above high normal 952326330763 0 - 1.5 [facility] Methgb Art 1.1% Normal [id number] 0.4 - 1.5 [facility] Deoxyhgb Art 0% Normal [id number] 0 - 5 [facility] Calcium Ionized 1.19mmol/L Normal [id number] 1.12 - 1.32 [facility] Sodium Lvl 140mmol/L Normal [id number] 137 - 145 [facility] Potassium Lvl 3.5mmol/L Normal [id number] 3.5 - 5.1 [facility] Lactic Acid Lvl 2.6mmol/L Above high normal 259879179912 0.7 - 2 [facility] Glucose Lvl Random 118mg/dL Normal 931984157734 65 - 140 [facility] GFR Center [place] 94mL/min/1.73m2 Normal 212846541233 - [facility] Sodium Lvl 146mmol/L Above high normal 244802762164 136 - 14 5 [facility] Potassium Lvl 3.5mmol/L Normal [id number] 3.4 - 4.5 [facility] Chloride 115mmol/L Above high normal 892883195965 98 - 107 [facility] CO2 21mmol/L Normal 880339740521 20 - 31 [facility] AGAP 10mmol/L Normal 917204747260 5 - 15 [facility] Glucose Lvl Random 167mg/dL Above high normal 592641306525 65 - 140 [facility] BUN 13mg/dL Normal [id number] 9 - 23 [facility] Creatinine 0.92mg/dL Normal 485472260606 0.6 - 1.1 [facility] Calcium Lvl 8.5mg/dL Below low normal 687965243254 8.7 - 10.4 [facility] Alk Phos 101unit/L Normal 725586531481 46 - 116 [facility] AST 2900unit/L Above high normal 868598929570 0 - 33 [facility] ALT 680unit/L Above high normal 879739250477 10 - 49 [facility] Total Protein 5.2gm/dL Below low normal 635998134141 5.7 - 8.2 [facility] Albumin Lvl 3.2gm/dL Normal 793297866462 3.2 - 4.8 [facility] Globulin 2gm/dL Normal [id number] 1.3 - 4.7 [facility] A/G Ratio 1.6 Normal [id number] 1 - 3.8 [facility] Bili Total 4.6mg/dL Above high normal 121137108742 0.2 - 1. 1 [facility] Fibrinogen 132mg/dL Below low normal 792916400044 174 - 514 [facility] Neutro % Interp See Comment Normal [id number] [facility] WBC 7.25k/uL Normal 439855023248 4 - 10.8 [facility] RBC 2.74million/uL Below low normal 996554806865 4.2 - 5.5 [facility] Hgb 8.2gm/dL Below low normal 366369096510 12.5 - 16.5 [facility] Hct 24.1% Below low normal 574304242377 37.5 - 49.5 [facility] MCV 88FL Normal [id number] 81 - 100 [facility] MCH 29.9pg Normal [id number] 27 - 31 [facility] MCHC 34gm/dL Normal [id number] 31 - 36 [facility] RDW 15.6% Above high normal [id number] 11.5 - 15.5 [facility] Platelet 119k/uL Below low normal 172624041674 145 - 400 [facility] MPV 10.3FL Normal [id number] 7.5 - 10.4 [facility] NRBC auto 0/100wbcs Normal [id number] 0 - 2 [facility] NRBC Abs 0k/uL Normal 529742161856 0 - 0.1 [facility] Neutro % 81.5% Above high normal 688204294936 43 - 75 [facility] Neutro Absolute 5.9k/uL Normal [id number] 1.7 - 8.1 [facility] Imm Gran % 0.7% Above high normal [id number] 0.1 - 0. 3 [facility] Imm Gran Absolute 0.05k/uL Above high normal 61555586542 7 0.01 - 0.03 [facility] Lymph % 12.7% Below low normal 242812241189 15 - 45 [facility] Lymph Absolute 0.9k/uL Normal [id number] 0.6 - 4.9 [facility] [place] % 2.9% Below low normal 873233971747 3 - 12 [facility] Monocyte Abs 0.2k/uL Normal [id number] 0.1 - 1.3 [facility] Eos % 1.9% Normal [id number] 0 - 6 [facility] Eosinophil Abs 0.1k/uL Normal [id number] 0 - 0.7 [facility] Basophil % 0.3% Normal [id number] 0 - 2 [facility] Basophil Abs 0k/uL Normal 715898474468 0 - 0.2 [facility] PT 25.1sec Above high normal 576197149163 12.2 - 14.8 [facility] INR 2.3 Above high normal 791403916131 0.8 - 1.2 [facility] pH Art 7.41 Normal 876429746331 7.35 - 7.45 [facility] pCO2 Art 30mmHg Below low normal 516530289682 35 - 45 [facility] pO2 Art 222mmHg Above high normal 208436747832 83 - 108 [facility] HCO3 Art 19mmol/L Below low normal 244939759615 21 - 28 [facility] Base Ex/Def Art -4.9mmol/L Below low normal - 2 [facility] O2 Sat Calc Art 99.8% Normal 866128147438 95 - 100 [facility] O2 Sat Christos Art 99.7% Normal 507447183616 95 - 100 [facility] Temperature Lab 37C Normal 490343772415 [facility] pH Art Temp C 7.41 Normal [id number] 7.35 - 7.45 [facility] pCO2 Art Temp C 30mmHg Below low normal 35 - 45 [facility] pO2 Art Temp C 222mmHg Above high normal 925236287560 83 - 108 [facility] O2 Content Art 12.4Vol% Below low normal [id number] 17 - 21 [facility] Total Hgb Art 8.7gm/dL Below low normal 748608455548 12. 5 - 16.5 [facility] Oxyhgb Art 96.6% Normal 954073193631 94 - 97 [facility] COHB Level Art 2.5% Above high normal 002733178545 0 - 1.5 [facility] Methgb Art 0.7% Normal [id number] 0.4 - 1.5 [facility] Deoxyhgb Art 0.3% Normal 672509297973 0 - 5 [facility] Calcium Ionized 1.17mmol/L Normal [id number] 1.12 - 1.32 [facility] Sodium Lvl 140mmol/L Normal [id number] 137 - 145 [facility] Potassium Lvl 3.5mmol/L Normal [id number] 3.5 - 5.1 [facility] Lactic Acid Lvl 2.4mmol/L Above high normal 821951022990 0.7 - 2 [facility] Glucose Lvl Random 137mg/dL Normal 487571573344 65 - 140 [facility] pH Art 7.36 Normal 323003553692 7.35 - 7.45 [facility] pCO2 Art 31mmHg Below low normal 910971281058 35 - 45 [facility] pO2 Art 208mmHg Above high normal 203389739406 83 - 108 [facility] HCO3 Art 17.5mmol/L Below low normal [id number] 21 - 28 [facility] Base Ex/Def Art -7.1mmol/L Below low normal 544488649339 - 2 [facility] O2 Sat Calc Art 99.7% Normal [id number] 95 - 100 [facility] O2 Sat Christos Art 99.5% Normal [id number] 95 - 100 [facility] Temperature Lab 37C Normal 017997145134 [facility] pH Art Temp C 7.36 Normal [id number] 7.35 - 7.45 [facility] pCO2 Art Temp C 31mmHg Below low normal 622014258940 35 - 45 [facility] pO2 Art Temp C 208mmHg Above high normal 277783395695 83 - 108 [facility] O2 Content Art 12.7Vol% Below low normal 856257202426 17 - 21 [facility] Total Hgb Art 9gm/dL Below low normal [id number] 12. 5 - 16.5 [facility] Oxyhgb Art 96.6% Normal 455765808665 94 - 97 [facility] COHB Level Art 2.2% Above high normal [id number] 0 - 1.5 [facility] Methgb Art 0.7% Normal [id number] 0.4 - 1.5 [facility] Deoxyhgb Art 0.5% Normal [id number] 0 - 5 [facility] Calcium Ionized 1.26mmol/L Normal [id number] 1.12 - 1.32 [facility] Sodium Lvl 139mmol/L Normal [id number] 137 - 145 [facility] Potassium Lvl 3.6mmol/L Normal [id number] 3.5 - 5.1 [facility] Lactic Acid Lvl 2.8mmol/L Above high normal [id number] 0.7 - 2 [facility] Glucose Lvl Random 147mg/dL Above high normal 611814562111 65 - 140 [facility] pH Art 7.29 Below low normal [id number] 7.35 - 7.45 [facility] pCO2 Art 35mmHg Normal 35 - 45 [facility] pO2 Art 444mmHg Above high normal [id number] 83 - 108 [facility] HCO3 Art 16.8mmol/L Below low normal 467397040174 21 - 28 [facility] Base Ex/Def Art -9mmol/L Below low normal 423268395205 - 2 [facility] O2 Sat Calc Art 100% Normal [id number] 95 - 100 [facility] O2 Sat Christos Art 99.4% Normal [id number] 95 - 100 [facility] Temperature Lab 37C Normal 902221432866 [facility] pH Art Temp C 7.29 Below low normal 665981123217 7.3 5 - 7.45 [facility] pCO2 Art Temp C 35mmHg Normal [id number] 35 - 45 [facility] pO2 Art Temp C 444mmHg Above high normal [id number] 83 - 108 [facility] O2 Content Art 14.4Vol% Below low normal [id number] 17 - 21 [facility] Total Hgb Art 9.7gm/dL Below low normal [id number] 12. 5 - 16.5 [facility] Oxyhgb Art 96.7% Normal [id number] 94 - 97 [facility] COHB Level Art 1.8% Above high normal 062687362259 0 - 1.5 [facility] Methgb Art 0.8% Normal 0.4 - 1.5 [facility] Deoxyhgb Art 0.6% Normal 0 - 5 [facility] Calcium Ionized 1.3mmol/L Normal 1.12 - 1.32 [facility] Sodium Lvl 137mmol/L Normal 137 - 145 [facility] Potassium Lvl 3.8mmol/L Normal 3.5 - 5.1 [facility] Lactic Acid Lvl 3mmol/L Above high normal 600430010023 0.7 - 2 [facility] Glucose Lvl Random 192mg/dL Above high normal [id number] 65 - 140 [facility] pH Art 7.39 Normal 7.35 - 7.45 [facility] pCO2 Art 27mmHg Below low normal 35 - 45 [facility] pO2 Art >500.0 Above high normal 83 - 108 [facility] HCO3 Art 16.3mmol/L Below low normal [id number] 21 - 28 [facility] Base Ex/Def Art -7.5mmol/L Below low normal [id number] - 2 [facility] O2 Sat Calc Art 100% Normal 95 - 100 [facility] O2 Sat Christos Art 99.8% Normal 95 - 100 [facility] Temperature Lab 37C Normal [facility] pH Art Temp C 7.39 Normal 7.35 - 7.45 [facility] pCO2 Art Temp C 27mmHg Below low normal 35 - 45 [facility] pO2 Art Temp C >500.0 Above high normal 83 - 108 [facility] O2 Content Art 15.1Vol% Below low normal 17 - 21 [facility] Total Hgb Art 10gm/dL Below low normal 12. 5 - 16.5 [facility] Oxyhgb Art 97.2% Above high normal 94 - 97 [facility] COHB Level Art 1.7% Above high normal [id number] 0 - 1.5 [facility] Methgb Art 0.9% Normal 0.4 - 1.5 [facility] Deoxyhgb Art 0.2% Normal 0 - 5 [facility] Calcium Ionized 1.2mmol/L Normal 1.12 - 1.32 [facility] Sodium Lvl 137mmol/L Normal 137 - 145 [facility] Potassium Lvl 3.9mmol/L Normal 3.5 - 5.1 [facility] Lactic Acid Lvl 3.1mmol/L Above high normal 636598357341 0.7 - 2 [facility] Glucose Lvl Random 227mg/dL Above high normal [id number] 65 - 140 [facility] pH Art 7.4 Normal [id number] 7.35 - 7.45 [facility] pCO2 Art 27mmHg Below low normal [id number] 35 - 45 [facility] pO2 Art 470mmHg Above high normal [id number] 83 - 108 [facility] HCO3 Art 16.7mmol/L Below low normal [id number] 21 - 28 [facility] Base Ex/Def Art -7mmol/L Below low normal [id number] - 2 [facility] O2 Sat Calc Art 100% Normal [id number] 95 - 100 [facility] O2 Sat Christos Art 99.8% Normal [id number] 95 - 100 [facility] Temperature Lab 37C Normal M [facility] pH Art Temp C 7.4 Normal [id number] 7.35 - 7.45 [facility] pCO2 Art Temp C 27mmHg Below low normal 35 - 45 [facility] pO2 Art Temp C 470mmHg Above high normal 83 - 108 [facility] O2 Content Art 15.1Vol% Below low normal [id number] 17 - 21 [facility] Total Hgb Art 10.1gm/dL Below low normal [id number] 12. 5 - 16.5 [facility] Oxyhgb Art 96.9% Normal 94 - 97 [facility] COHB Level Art 1.9% Above high normal [id number] 0 - 1.5 [facility] Methgb Art 1% Normal [id number] 0.4 - 1.5 [facility] Deoxyhgb Art 0.2% Normal [id number] 0 - 5 [facility] Calcium Ionized 1.04mmol/L Below low normal [id number] 1 .12 - 1.32 [facility] Sodium Lvl 136mmol/L Below low normal [id number] 137 - 145 [facility] Potassium Lvl 4mmol/L Normal [id number] 3.5 - 5.1 [facility] Lactic Acid Lvl 3.1mmol/L Above high normal 455547127921 0.7 - 2 [facility] Glucose Lvl Random 274mg/dL Above high normal [id number] 65 - 140 [facility] pH Art 7.38 Normal 7.35 - 7.45 [facility] pCO2 Art 32mmHg Below low normal [id number] 35 - 45 [facility] pO2 Art 343mmHg Above high normal [id number] 83 - 108 [facility] HCO3 Art 18.9mmol/L Below low normal 21 - 28 [facility] Base Ex/Def Art -5.4mmol/L Below low normal 606527485352 - 2 [facility] O2 Sat Calc Art 99.9% Normal [id number] 95 - 100 [facility] O2 Sat Christos Art 99.4% Normal [id number] 95 - 100 [facility] Temperature Lab 37C Normal [id number] [facility] pH Art Temp C 7.38 Normal 7.35 - 7.45 [facility] pCO2 Art Temp C 32mmHg Below low normal 35 - 45 [facility] pO2 Art Temp C 343mmHg Above high normal 83 - 108 [facility] O2 Content Art 15.5Vol% Below low normal [id number] 17 - 21 [facility] Total Hgb Art 10.8gm/dL Below low normal [id number] 12. 5 - 16.5 [facility] Oxyhgb Art 96.3% Normal 94 - 97 [facility] COHB Level Art 1.9% Above high normal [id number] 0 - 1.5 [facility] Methgb Art 1.1% Normal [id number] 0.4 - 1.5 [facility] Deoxyhgb Art 0.6% Normal [id number] 0 - 5 [facility] Calcium Ionized 1.06mmol/L Below low normal 1 .12 - 1.32 [facility] Sodium Lvl 137mmol/L Normal 137 - 145 [facility] Potassium Lvl 4.6mmol/L Normal [id number] 3.5 - 5.1 [facility] Lactic Acid Lvl 2.5mmol/L Above high normal 0.7 - 2 [facility] Glucose Lvl Random 179mg/dL Above high normal 619534246770 65 - 140 [facility] pH Art 7.37 Normal [id number] 7.35 - 7.45 [facility] pCO2 Art 36mmHg Normal 35 - 45 [facility] pO2 Art 294mmHg Above high normal 895836731376 83 - 108 [facility] HCO3 Art 20.8mmol/L Below low normal 21 - 28 [facility] Base Ex/Def Art -4mmol/L Below low normal [id number] - 2 [facility] O2 Sat Calc Art 99.9% Normal 95 - 100 [facility] O2 Sat Christos Art 100% Normal 95 - 100 [facility] Temperature Lab 37C Normal [facility] pH Art Temp C 7.37 Normal 7.35 - 7.45 [facility] pCO2 Art Temp C 36mmHg Normal 35 - 45 [facility] pO2 Art Temp C 294mmHg Above high normal 83 - 108 [facility] O2 Content Art 15.4Vol% Below low normal 17 - 21 [facility] Total Hgb Art 10.7gm/dL Below low normal 12. 5 - 16.5 [facility] Oxyhgb Art 97.1% Above high normal 94 - 97 [facility] COHB Level Art 2.5% Above high normal 0 - 1.5 [facility] Methgb Art 0.4% Normal 0.4 - 1.5 [facility] Deoxyhgb Art 0% Normal 0 - 5 [facility] Calcium Ionized 1.1mmol/L Below low normal [id number] 1 .12 - 1.32 [facility] Sodium Lvl 136mmol/L Below low normal 137 - 145 [facility] Potassium Lvl 4.6mmol/L Normal 3.5 - 5.1 [facility] Lactic Acid Lvl 1.9mmol/L Normal 0.7 - 2 [facility] Glucose Lvl Random 126mg/dL Normal 65 - 140 [facility] pH Art 7.41 Normal 772842173377 7.35 - 7.45 [facility] pCO2 Art 34mmHg Below low normal 239581105237 35 - 45 [facility] pO2 Art 139mmHg Above high normal 314080481906 83 - 108 [facility] HCO3 Art 21.6mmol/L Normal 687905792200 21 - 28 [facility] Base Ex/Def Art -2.5mmol/L Below low normal - 2 [facility] O2 Sat Calc Art 99.2% Normal [id number] 95 - 100 [facility] O2 Sat Christos Art 99.4% Normal [id number] 95 - 100 [facility] Temperature Lab 37C Normal 825216159209 [facility] pH Art Temp C 7.41 Normal [id number] 7.35 - 7.45 [facility] pCO2 Art Temp C 34mmHg Below low normal [id number] 35 - 45 [facility] pO2 Art Temp C 139mmHg Above high normal [id number] 83 - 108 [facility] O2 Content Art 15.2Vol% Below low normal [id number] 17 - 21 [facility] Total Hgb Art 11.1gm/dL Below low normal [id number] 12. 5 - 16.5 [facility] Oxyhgb Art 96% Normal [id number] 94 - 97 [facility] COHB Level Art 2.3% Above high normal 016606671537 0 - 1.5 [facility] Methgb Art 1.1% Normal [id number] 0.4 - 1.5 [facility] Deoxyhgb Art 0.6% Normal [id number] 0 - 5 [facility] Calcium Ionized 1.17mmol/L Normal [id number] 1.12 - 1.32 [facility] Sodium Lvl 138mmol/L Normal [id number] 137 - 145 [facility] Potassium Lvl 4.1mmol/L Normal 073531949591 3.5 - 5.1 [facility] Lactic Acid Lvl 1.3mmol/L Normal [id number] 0.7 - 2 [facility] Glucose Lvl Random 55mg/dL Below low normal 172011676376 6 5 - 140 [facility] HCV Interp See Comment Normal [facility] HCV Abnormal - [facility] HIV 1/O/2 Ab/Ag (Screen) Normal - [facility] pH Art 7.36 Normal 7.35 - 7.45 [facility] pCO2 Art 42mmHg Normal 35 - 45 [facility] pO2 Art 340mmHg Above high normal 83 - 108 [facility] HCO3 Art 23.7mmol/L Normal 21 - 28 [facility] Base Ex/Def Art -1.7mmol/L Normal - 2 [facility] O2 Sat Calc Art 99.9% Normal 95 - 100 [facility] O2 Sat Christos Art 100% Normal 95 - 100 [facility] Temperature Lab 37C Normal [facility] pH Art Temp C 7.36 Normal 7.35 - 7.45 [facility] pCO2 Art Temp C 42mmHg Normal 35 - 45 [facility] pO2 Art Temp C 340mmHg Above high normal 83 - 108 [facility] O2 Content Art 15.5Vol% Below low normal 17 - 21 [facility] Total Hgb Art 10.7gm/dL Below low normal 12. 5 - 16.5 [facility] Oxyhgb Art 97.1% Above high normal 94 - 97 [facility] COHB Level Art 2.4% Above high normal 0 - 1.5 [facility] Methgb Art 0.6% Normal 0.4 - 1.5 [facility] Deoxyhgb Art 0% Normal 0 - 5 [facility] Calcium Ionized 1.21mmol/L Normal 1.12 - 1.32 [facility] Sodium Lvl 139mmol/L Normal 137 - 145 [facility] Potassium Lvl 3.6mmol/L Normal 3.5 - 5.1 [facility] Lactic Acid Lvl 0.9mmol/L Normal 0.7 - 2 [facility] Glucose Lvl Random 73mg/dL Normal 65 - 140 [facility] HBC Total Interpretation See Comment Normal [facility] HBsAg Interpretation See Comment Normal [facility] HBC Total Normal - [facility] HBsAg Normal - [facility] HBsAB Quantitative 57.13mIU/mL Above high normal 2 - [facility] AbSc 2C Int Normal [id number] [facility] Testing Site Normal [id number] [facility] ABORh Int O POS Normal [id number] [facility] COVID-19/Coronavir us RNA PCR Normal [id number] [facility] GFR Center [place] 106mL/min/1.73m2 Normal [id number] - [facility] Bili Direct 0.9mg/dL Above high normal [id number] 0 - 0.3 [facility] Phosphorus Lvl 4.6mg/dL Normal [id number] 2.4 - 5.1 [facility] Sodium Lvl 143mmol/L Normal 136 - 145 [facility] Potassium Lvl 4mmol/L Normal [id number] 3.4 - 4.5 [facility] Chloride 109mmol/L Above high normal [id number] 98 - 107 [facility] CO2 28mmol/L Normal 20 - 31 [facility] AGAP 6mmol/L Normal [id number] 5 - 15 [facility] Glucose Lvl Random 87mg/dL Normal 971516947318 65 - 140 [facility] BUN 7mg/dL Below low normal 759612587107 9 - 23 [facility] Creatinine 0.66mg/dL Normal 922588950549 0.6 - 1.1 [facility] Calcium Lvl 9.7mg/dL Normal 527472589035 8.7 - 10.4 [facility] Alk Phos 68unit/L Normal [id number] 46 - 116 [facility] AST 59unit/L Above high normal [id number] 0 - 33 [facility] ALT 41unit/L Normal [id number] 10 - 49 [facility] Total Protein 8.3gm/dL Above high normal 653581129311 5.7 - 8.2 [facility] Albumin Lvl 4.3gm/dL Normal [id number] 3.2 - 4.8 [facility] Globulin 4gm/dL Normal [id number] 1.3 - 4.7 [facility] A/G Ratio 1.1 Normal [id number] 1 - 3.8 [facility] Bili Total 3.9mg/dL Above high normal [id number] 0.2 - 1. 1 [facility] Magnesium Lvl 1.7mg/dL Normal [id number] 1.6 - 2.6 [facility] Amylase Lvl 82unit/L Normal 789020980797 30 - 118 [facility] PT 16.3sec Above high normal [id number] 12.2 - 14.8 [facility] INR 1.3 Above high normal [id number] 0.8 - 1.2 [facility] PTT 32.1sec Normal [id number] 22.2 - 35 [facility] Fibrinogen 252mg/dL Normal [id number] 174 - 514 [facility] WBC 4.65k/uL Normal 120489780508 4 - 10.8 [facility] RBC 3.93million/uL Below low normal [id number] 4.2 - 5.5 [facility] Hgb 11.7gm/dL Below low normal [id number] 12.5 - 16.5 [facility] Hct 35.4% Below low normal [id number] 37.5 - 49.5 [facility] MCV 90.1FL Normal 406107154489 81 - 100 [facility] MCH 29.8pg Normal [id number] 27 - 31 [facility] MCHC 33.1gm/dL Normal [id number] 31 - 36 [facility] RDW 15.1% Normal [id number] 11.5 - 15.5 [facility] Platelet 152k/uL Normal [id number] 145 - 400 [facility] MPV 11FL Above high normal [id number] 7.5 - 10.4 [facility] NRBC auto 0/100wbcs Normal [id number] 0 - 2 [facility] NRBC Abs 0k/uL Normal 625820543622 0 - 0.1 [facility] Neutro % 48.2% Normal 523236202631 43 - 75 [facility] Neutro Absolute 2.2k/uL Normal [id number] 1.7 - 8.1 [facility] Imm Gran % 0.6% Above high normal 887596564787 0.1 - 0. 3 [facility] Imm Gran Absolute 0.03k/uL Normal [id number] 0.01 - 0.03 [facility] Lymph % 29.2% Normal [id number] 15 - 45 [facility] Lymph Absolute 1.4k/uL Normal [id number] 0.6 - 4.9 [facility] [place] % 12.3% Above high normal 850401004159 3 - 12 [facility] Monocyte Abs 0.6k/uL Normal [id number] 0.1 - 1.3 [facility] Eos % 8.8% Above high normal 823329321657 0 - 6 [facility] Eosinophil Abs 0.4k/uL Normal 033790373841 0 - 0.7 [facility] Basophil % 0.9% Normal [id number] 0 - 2 [facility] Basophil Abs 0k/uL Normal [id number] 0 - 0.2 [facility]
--- OUTSIDE RECORDS SUMMARY | 2024-06-15 13:09 | XMS_ITS | Continuity of Care Document ---
Author Organization [facility] ter Address [address] [place] [id number]- Care Team Providers Care Truck Safety Inspector Name Role Phone Maxine Victoria MD Primary Care Physician Encounter [facility] [place] Date(s): 05/25/24 - 05/26/[address] [address] Discharge Disposition: A-D/C Home Attending Physician: Koko PEREZ, Donna Cervantes Admitting Physician: Israel Harper MD Referring Physician: Not on Staff, Referring MD Encounter Type: Disch IP Allergies, Adverse Reactions, Alerts No Known Allergies Immunizations Given and Recorded Vaccine Date Status Refusal Reason influenza virus vaccine, inactivated 02/25/24 Gaurav rded influenza virus vaccine, inactivated 01/25/22 Gaurav rded influenza virus vaccine, inactivated 01/11/20 Gaurav rded influenza virus vaccine, inactivated 02/07/17 Gaurav rded SARS-CoV-2(COVID-19)mRNA-LNP vac([id number]) 02/25/24 Recorded SARS-CoV-2 mRNA ([id number]) vax 11/23/21 Recorded tetanus/diphtheria/pertussis, acel(Tdap) 07/17/21 Recorded SARS-CoV-2 (COVID-19) mRNA BNT-162b2 vac 03/09/21 Recorded SARS-CoV-2 (COVID-19) mRNA BNT-162b2 vac 08/08/20 Recorded SARS-CoV-2 (COVID-19) mRNA BNT-162b2 vac 07/18/20 Recorded pneumococcal 23-valent vaccine 03/21/17 Given Hepatitis A-Hepatitis B Vaccine 08/30/14 Recorded Hepatitis A-Hepatitis B Vaccine 02/24/14 Recorded Hepatitis A-Hepatitis B Vaccine 01/25/14 Recorded Hepatitis A-Hepatitis B Vaccine 03/30/13 Recorded Hepatitis A-Hepatitis B Vaccine 12/14/12 Recorded Hepatitis A-Hepatitis B Vaccine 11/11/12 Recorded Medications BMP in 5 days BMP in 5 days, See Instructions, # 1 each, Refills 0, Tot. Refills 0, Maintenance, Pls send the results toMaxine Oquendo, 05/26/24 3:25:00 PM EST, Supply Start Date: 05/26/24 Status: Ordered Quantity: 1.0 Unit: each Repeat number: 1 CBC in 5 days CBC in 5 days, See Instructions, # 1 each, Refills 0, Tot. Refills 0, Maintenance, Pls send the results to Dr Julien Goodman / Davin Allison, 05/26/24 3:22:00 PM EST, Supply Start Date: 05/26/24 Status: Ordered Quantity: 1.0 Unit: each Repeat number: 1 magnesium oxide 400 mg oral capsule 1 capsule = 400 mg, By Mouth, 2 times a day, # 75 capsule, 0 Refills, Maintenance, 04/05/24 9:48:00PM EST, Capsule, Partial fill upon patient request if the prescription is for a schedule II opioid drug. Start Date: 04/05/24 Status: Ordered Quantity: 75.0 Unit: capsule Repeat number: 1 pantoprazole 40 mg oral delayed release tablet 1 tablet = 40 mg, By Mouth, Daily, # 30 tablet, 0 Refills, Maintenance, 04/05/24 9:47:00 PM EST, ECTablet Start Date: 04/05/24 Status: Ordered Quantity: 30.0 Unit: tablet Repeat number: 1 tacrolimus 1 mg oral capsule = 4 mg, By Mouth, Daily, 0 Refills, Maintenance, 04/20/24 2:01:00 PM EST, Capsule, Partial fill upon patient request if the prescription is for a schedule II opioid drug. Start Date: 04/20/24 Status: Ordered Repeat number: 1 tacrolimus 5 mg oral capsule = 5 mg, By Mouth, Daily at bedtime, 0 Refills, Maintenance, 04/20/24 2:01:00 PM EST, Capsule, Partial fill upon patient request if the prescription is for a schedule II opioid drug. Start Date: 04/20/24 Status: Ordered Repeat number: 1 Urea Powder = 15 Gm, By Mouth, Daily, 0 Refills, Maintenance, 04/20/24 2:01:00 PM EST, Powder, Partial fill upon patient request if the prescription is for a schedule II opioid drug. Start Date: 04/20/24 Status: Ordered Repeat number: 1 ursodiol 300 mg oral capsule 300 mg, 1, capsule, By Mouth, 2 times a day, # 60 capsule, Refills 0, Maintenance, 04/05/24 9:48:00PM EST, Partial fill upon patient request if the prescription is for a schedule II opioid drug. Start Date: 04/05/24 Status: Ordered Quantity: 60.0 Unit: capsule Repeat number: 1 Problem List Condition Confirmation Course Effective Dates Status Health St atus Informant Chronic anemia Confirmed Active CKD (chronic kidney disease) Confirmed Active GERD without esophagitis Confirmed Active Status post liver transplant Confirmed Active Vital Signs Most recent to oldest [Reference Range]: 1 2 3 Height 175 cm (05/25/24 11:23 PM) 175 cm (05/25/24 10:15 PM) 175 cm (05/25/24 10:06 PM) Weight 76.20 kg (05/25/24 10:23 PM) 76.2 kg (05/25/24 10:15 PM) 77.8 kg (05/25/24 2:11 PM) Oxygen Saturation [94-100 %] 100 % (05/26/24 3:00 PM) 99 % (05/26/24 8:00 AM) 100 % (05/25/24 11:23 PM) Pulse Rate [55-90 bpm] 63 bpm (05/26/24 3:00 PM) 60 bpm (05/26/24 8:00 AM) 57 bpm (05/25/24 11:23 PM) Body Mass Index [18.5-24.99 kg/m2] 24.88 kg/m2 (05/25/24 10:15 PM) Blood Pressure [90-138/55-84 mm Hg] 148/74mm Hg *H* (05/26/24 3:00 PM) 142/80mm Hg *H* (05/26/24 8:00 AM) 148/83mm Hg *H* (05/25/24 11:23 PM) Respiratory Rate [16-30 br/min] 18 br/min (05/26/24 3:00 PM) 18 br/min (05/26/24 8:00 AM) 18 br/min (05/25/24 11:23 PM) Temperature [96.8-100.4 DegF] 98.1 DegF (05/26/24 3:00 PM) 98.0 DegF (05/26/24 8:00 AM) 98 DegF (05/25/24 11:23 PM) Mode of Delivery (Oxygen) Room air (05/26/24 3:00 PM) Room air (05/26/24 8:00 AM) Room air (05/25/24 11:23 PM) Blood pressure sites Arm, right (05/26/24 3:00 PM) Arm, right (05/26/24 8:00 AM) Arm, right (05/25/24 11:23 PM) Temperature Route Oral (05/26/24 3:00 PM) Oral (05/26/24 8:00 AM) Oral (05/25/24 11:23 PM) Dry Weight 76.2 kg (05/25/24 10:15 PM) 77.8 kg (05/25/24 2:11 PM) 77.8 kg (05/25/24 2:02 PM) Weight Obtained Via Pediatric scale (05/25/24 2:11 PM) Dry Weight Obtained Via Standing scale (05/25/24 2:02 PM) Admission evaluation note * Cici PEREZ, Courtney: PERFORM Event Display: Admission Note Authored Date: [id number] Patient: ??ROCAEL LAW ? Age:??64 Years?Sex:??Male?:??1960?? Chief Complaint/Reason for Consultation Acute on chronic anemia History of Present Illness 64-year-old male with history of decompensated cirrhosis secondary to hepatitis C and alcohol use disorder status post liver transplant (July 2023, [facility]) currently on tacrolimus,CKD, myelodysplastic syndrome receiving weekly erythropoietin, transfusion dependent, recently admitted 05/12 for critical anemia requiring transfusion.?? Presenting today as again routine labs at the [place] showed a low hemoglobin and he was instructed to come in for transfusion. ?? He denies any symptoms including chest pain, SOB, fatigue, bleeding, bright red blood in stool/melena, abdominal pain, nausea/vomiting, diarrhea, URI symptoms, or any frequent falls. ?? Vitals he was afebrile, heart rate in the 60s???70s, normotensive in the 110s???120 systolic, O2 sat 100% on room air.?? Laboratory evaluation revealed?? anemia with H&H of 6.0/17.6, leukopenia??with WBC of 3.1 (appears around baseline), platelets 218, monocyte predominance with 21.8% monocytesand eosinophilia with 10.9% eosinophils.?? Normal INR/PT of 1.1/11.5.?? BMP with mild hyperkalemia of 5.3, mildly low bicarb of 20 within normal anion gap other electrolytes appear within normal limits, creatinine of 1.55 (appears within baseline), normal transaminases and bilirubin of 0.6.?? Urinalysis revealed no signs of infection or blood. ?? On my evaluation he was well-appearing, asymptomatic, alert and oriented with no acute complaints. Review of Systems Per HPI, ROS negative. Objective Measurements?? Height: 175 cm (05/25/24) Weight: 76.2 kg (05/25/24) Dry Weight: 76.2 kg (05/25/24) Body Mass Index: 24.88 kg/m2 (05/25/24) ? Vital Signs?? Temperature: 98 DegF (05/25/24 23:23:00) Temperature Route: Oral (05/25/24 23:23:00) Pulse Rate: 57 bpm (05/25/24 23:23:00) Respiratory Rate: 18 br/min (05/25/24 23:23:00) Systolic Blood Pressure:??148 mm Hg??High (05/25/24 23:23:00) Diastolic Blood Pressure: 83 mm Hg (05/25/24 23:23:00) Blood pressure sites: Arm, right (05/25/24 23:23:00) Mean Arterial Pressure: 105 mm Hg (05/25/24 23:23:00) Pulse Pressure: 65 mm Hg (05/25/24 23:23:00) Oxygen Saturation: 100 % (05/25/24 23:23:00) Mode of Delivery (Oxygen): Room air (05/25/24 23:23:00) Early Warning Score: 4 (05/25/24 23:24:35) ? Physical Exam Constitutional:??AAO X3.??In no acute distress. Respiratory:??Clear to auscultation bilaterally.?No wheezing,??crackles, or rales.? Cardiovascular:??Slightly elevated JVD. ??Holosystolic murmur but otherwise??normal S1-S2.?? 2+ peripheral pulses. Gastrointestinal:??Large hernia in right??lower quadrant, nontender with no evidence of incarceration, midline??epigastric??hernia, overlying??healed surgical scars. ??Abdomen??soft, nontender. Neurologic:??Moves all extremities??spontaneously Skin:??No rashes, dry and intact Musculoskeletal:??No LE edema. ??No gross deformities Psychiatric:??Appropriate mood and affect Assessment/Plan Assessment:??64-year-old male with history of decompensated cirrhosis secondary to hepatitis C and alcohol use disorder status post liver transplant (July 2023, [facility]) currently on tacrolimus, CKD, myelodysplastic syndrome receiving weekly erythropoietin, transfusion dependent, recently admitted 05/12 for critical anemia requiring transfusion.??Presenting today as again routine labs at the [place] showed a low hemoglobin and he was instructed to come in for transfusion. ?? Acute on chronic anemia (D64.9) ?Associated with??Myelodysplastic disease (C94.6),??Chronic kidney disease (N18.9) ? Has history of chronic normocytic anemia, baseline hemoglobin typically around 7???8 per patient.??Multifactorial in etiology, has history of myelodysplastic syndrome and likely also component of anemia of chronic disease in the setting of his CKD.??Has stable leukopenia, WBC count withinhis normal range at this time, normal platelets.??Normal INR/PT with no evidence of bleeding.??Mostrecently required transfusion 2 weeks ago for abnormal labs.??Type and screen And consent completed in the ED.??Status post 1 unit. Receives erythropoietin??infusions??every 2 weeks, was due for 1 today??but delayed due to admission.??Self administers at home. ?? Plan: ? Repeat H&H following??transfusion ? Goal hemoglobin>7.0,??additional units??as needed to reach goal ??? Monitor??O2 sat, supplemental oxygen as needed ???Complete erythropoietin infusion as soon as returns home ?Follow-up with game programmer at [facility] ??? Continue home??urea powder and magnesium supplementation ?? Decompensated hepatic cirrhosis (K72.90) ?Caused by??History of alcohol abuse (F10.11),??Hepatitis C (B19.20) ? History of alcohol use disorder??and hepatitis C. Underwent liver transplant in July 2023??at [facility]. ?? Plan: ???Continue home??tacrolimus 1 mg in a.m. and??5 mg??in p.m. ???Will obtain tacrolimus level ???Contact his??transplant team??in a.m., Maria G??[phone] ?? VTE Prophylaxis:??Pharmacologic??prophylaxis contraindicated in the setting of acute on chronic anemia??with hemoglobin below 7. Pneumatic boots for??mechanical??DVT prophylaxis. ?VTE Prophylaxis Assessment:??VTE Prophylaxis Ordered ?? Code Status:??Full code ?Order Code Status:??Code Status Ordered ?? Courtney Bolanos Medicine-Pediatrics PGY-2 Available on [employer] [place] pager [phone] 05/26/2024 ?? Please excuse any errors in wording or grammatical mistakes in the note as this was transcribed using dictation.?This note is not final until signed by the attending physician.?The patient was seen and discussed with Dr. Oropeza. ? Histories Allergies Allergies ?(Active and Proposed Allergies Only) NKA? (Severity: Unknown severity, Onset: Unknown) ? Past Medical History/Problem List Active Problems(4) Chronic anemia CKD (chronic kidney disease) GERD without esophagitis Status post liver transplant ? Past Surgical History No surgery history documented. ? Social History No social history documented. ? Family History No Family History documented. ? Medications Home Medications Magnesium Oxide (magnesium oxide 400 mg oral capsule)?1?capsule?400?Milligram?By Mouth?Daily?2 times a day Pantoprazole (pantoprazole 40 mg oral delayed release tablet)?1?tab(s)?40?Milligram?By Mouth?Daily Tacrolimus (tacrolimus 5 mg oral capsule)?5?Milligram?By Mouth?Daily at bedtime Tacrolimus (tacrolimus 1 mg oral capsule)?4?Milligram?By Mouth?Daily Urea (Urea Powder)?15?gram?By Mouth?Daily Ursodiol (ursodiol 300 mg oral capsule)?300?Milligram?1?capsule?By Mouth?2 times a day ? Inpatient Medications Medications (15) Active SCHEDULED: (7) Magnesium Oxide 400 mg Tablet (magnesium oxide 400 mg oral tablet) ??400 mg, By Mouth, 2 times a day NaCl 0.9% Flush 3ml (NaCL 0.9% Flush) ??3 mL, IV Push, Every 8 hours Pantoprazole 40 mg EC Tablet (pantoprazole 40 mg oral delayed release tablet) ??40 mg, By Mouth, Daily Tacrolimus 1 mg Capsule (tacrolimus 1 mg oral capsule) ??4 mg, By Mouth, Daily Tacrolimus 5 mg Capsule (tacrolimus 5 mg oral capsule) ??5 mg, By Mouth, Daily at bedtime Urea 15 Gm Powder (Urea Powder) ??15 Gm, By Mouth, Daily Ursodiol 300 mg Capsule (ursodiol 300 mg oral capsule) ??300 mg, By Mouth, 2 times a day CONTINUOUS: (0) PRN: (8) Acetaminophen 325 mg Tablet (Acetaminophen Tablet) ??650 mg, By Mouth, Every 4 hours Dextromethorphan-Guaifenesin 20 mg-200 mg/10 mL Liqu UD (Robitussin DM Liquid) ??10 mL, By Mouth, Every 4 hours Docusate Sodium 100 mg Capsule (Docusate Sodium Capsule) ??100 mg 1 capsule, By Mouth, 2 times a day Melatonin 3 mg Tablet (Melatonin Tablet) ??3 mg, By Mouth, Daily at bedtime NaCl 0.9% Flush 3ml (NaCL 0.9% Flush) ??3 mL, IV Push, Every 8 hours Polyethylene Glycol 17 Gm Powder (MiraLax Powder) ??17 Gm 1 pack/packet, By Mouth, Daily Senna Tablet ??8.6 mg 1 tablet, By Mouth, 2 times a day Simethicone 80 mg Chewable Tablet (Simethicone Tablet) ??80 mg, Chew, 3 times a day ? * Sandip PEREZ, Vance: PERFORM Event Display: Admission Note Authored Date: [id number] Attending Attestation: I have seen and evaluated this patient.?? I have discussed the case and its management with the resident and agree with the findings and aamir documented in the resident's note.?? I?? will continue to provide care to this patient till 7 AMof the admitting date.?? 64-year-old male with a past medical history of decompensated cirrhosis, hepatitis C, alcohol abusestatus post liver transplant on tacrolimus, CKD, myelodysplasia on weekly erythropoietin, transfusion dependent anemia, GERD came with a complaint of low hemoglobin.?? Denied any symptoms of GI bleeding, melena.?? Concern of symptomatic anemia.?? Will keep the hemoglobin near about 7.?? Will continue with tacrolimus and will follow-up with?? transplant team at [place] regarding immunosuppressive treatment.?? Please call in the morning time to Transplant teamMaria G at [phone].?? Labs showed stable CKD with hemoglobin 6 with WBC 3.1.?? Will avoid chemical prophylaxis.?? Will continueto follow-up with his game programmer outpatient at [place]..?? Will get a tacrolimus level Past Medical History/Problem List Chronic anemia CKD (chronic kidney disease) GERD without esophagitis Myelodysplasia Decompensated cirrhosis History of alcohol abuse Status post liver transplant?? Past Surgical History Liver transplant July 2023 Social History Former?5 pack year smoker Former occasional Alcohol use No Illcit drugs Lives with .?? Family History No family h/o?? of premature CAD or malignancy. * Vance Oropeza MD: PERFORM Event Display: Admission Note Authored Date: Patient repeat hemoglobin is 6.1.?? Unlikely hemolytic anemia.?? Haptoglobin, reticulocyte count ispending.?? We are going to transfuse 1 unit of blood.?? Will keep the hemoglobin more than 7. EKG study * Event Display: EKG Authored Date: * Event Display: ECG 12-Lead Authored Date: Please click on pdf link to open report * Event Display: ECG 12-Lead Authored Date: Ventricular Rate: 66 BPM Atrial Rate: 66 BPM P-R Interval: 158 ms QRS Duration: 78 ms Q-T Interval: 398 ms QTC Calculation(Bazett): 417 ms P [place]: 5 degrees R [place]: 0 degrees T [place]: 27 degrees Normal sinus rhythm Normal ECG When compared with ECG of 11-May-2024 15:52, No significant change was found Confirmed by STANLEY CHEEMA MD ([id number]) on 05/25/2024 2:21:45 PM [place]: [facility] * Anna Ceballos RN: VERIFY, PERFORM, SIGN Event Display: [facility] Authored Date: [id number] Patient: ROCAEL LAW Age: 64 years Sex: Male : 1960 Associated Diagnoses: None Author: Anna Ceballos RN Findings Problem Related to Alteration in Tissue Perfusion : Alteration in Tissue Perfusion 05/26/2024 12:00 EST Alteration Tissue Perfusion related to Anemia Goals & Outcomes: Tissue perfusion Pt will maintain optimal perfusion to vital organs, Pt will resume/maintain adequate peripheral circulation, Pt will experience improved tissue perfusion, Pt will be hemodynamically stable Interventions: Tissue Perfusion Assess/Monitor activity tolerance, Assess/Monitor mental status, Assess/Monitor peripheral pulses & capillary refill, Assess/Monitor presence & degree of edema, Assess/Monitor vital signs per unit standard & prn, Monitor blood loss, Monitor Intake & Output Goals/Interventions, Tissue Perfusion Yes Tissue Perfusion, Problem Start 05/26/2024 12:29 Reviewed Plan with, Tissue Perfusion Patient Patient Progression, Tissue Perfusion Plan Initiation . Evaluation Alert, Orientated, L/S clear, abd. benign. Gd. appetitte with no nausea, and or vomiting. H/H 8.2/24 improved. +K 5.8, and Lokelma given A.O. Will recheck +K shortly. OOB ad ralph, steady gait noted. Voiding without difficulties. Cont. to moniter.. Note * Anna Ceballos RN: PERFORM Event Display: Discharge/Transfer Note Hospital Authored Date: Nursing Discharge Note Entered On: 05/26/2024 17:43 EST Performed On: 05/26/2024 17:42 EST by Anna Ceballos RN Nursing Discharge Note 2 Discharge Time : 05/26/2024 17:40 EST Discharge Level of Care at Discharge : Home/Intermediate/Foster Care Patient Left Unit Via : Wheelchair Patient Accompanied Off Unit with : Significant other DC Instructions Provided & Signed by Pt : Yes Patient Understands D/C Instructions : Yes Patient Instructions Discharge Signed : Yes Did Pt have Specialty Bed or Wound Vac : No Anna Ceballos RN - 05/26/2024 17:42 EST * Koko PEREZ, Donna Cervantes: PERFORM, MODIFY Event Display: Discharge/Transfer Note Hospital Authored Date: [id number] Patient: ??ROCAEL LAW ? Age:??64 Years?Sex:??Male?:??1960?? Patient Information Discharge Location: W3 Primary Care Physician: Maxine Victoria MD Admit Date/Time: 05/25/2024 18:54 Discharge Disposition Discharge Disposition: Home: No Services Discharge Diagnosis General medical ([id number]) Myelodysplastic disease (C94.6) Decompensated hepatic cirrhosis (K72.90) History of alcohol abuse (F10.11) Hepatitis C (B19.20) Chronic kidney disease (N18.9) Acute on chronic anemia (D64.9) _ Discharge Medications Magnesium Oxide (magnesium oxide 400 mg oral capsule)?1?capsule?400?Milligram?By Mouth?Daily?2 times a day Miscellaneous Rx (CBC in 5 days)?See Instructions?Pls send the results to Dr Julien Goodman / Davin Allison Miscellaneous Rx (BMP in 5 days)?See Instructions?Pls send the results toMaxine Oquendo Pantoprazole (pantoprazole 40 mg oral delayed release tablet)?1?tab(s)?40?Milligram?By Mouth?Daily Tacrolimus (tacrolimus 5 mg oral capsule)?5?Milligram?By Mouth?Daily at bedtime Tacrolimus (tacrolimus 1 mg oral capsule)?4?Milligram?By Mouth?Daily Urea (Urea Powder)?15?gram?By Mouth?Daily Ursodiol (ursodiol 300 mg oral capsule)?300?Milligram?1?capsule?By Mouth?2 times a day ? Medications Started NONE Medications Discontinued NONE Doses Changed NONE PCP Follow-Up/Heads-Up F/u CBC , BMP in 5 days Hospital Course 64-year-old male with history of decompensated cirrhosis secondary to hepatitis C and alcohol use disorder status post liver transplant (July 2023, [facility]) currently on tacrolimus,CKD, myelodysplastic syndrome receiving weekly erythropoietin, transfusion dependent, recently admitted 05/12 for critical anemia requiring transfusion. Presenting today as again routine labs at the [place] showed a low hemoglobin and he was instructed to come in for transfusion. ?? He denies any symptoms including chest pain, SOB, fatigue, bleeding, bright red blood in stool/melena, abdominal pain, nausea/vomiting, diarrhea, URI symptoms, or any frequent falls. ?? Vitals he was afebrile, heart rate in the 60s???70s, normotensive in the 110s???120 systolic, O2 sat 100% on room air. Laboratory evaluation revealed anemia with H&H of 6.0/17.6, leukopenia with WBC of 3.1 (appears around baseline), platelets 218, monocyte predominance with 21.8% monocytes and e osinophilia with 10.9% eosinophils. Normal INR/PT of 1.1/11.5. BMP with mild hyperkalemia of 5.3, mildly low bicarb of 20 within normal anion gap other electrolytes appear within normal limits, creatinine of 1.55 (appears within baseline), normal transaminases and bilirubin of 0.6. Urinalysis revealed no signs of infection or blood. ?? On my evaluation he was well-appearing, asymptomatic, alert and oriented with no acute complaints. Acute on chronic anemia (D64.9) ? Associated with Myelodysplastic disease (C94.6), Chronic kidney disease (N18.9) ? Has history of chronic normocytic anemia, baseline hemoglobin typically around 7???8 per patient. Multifactorial in etiology, has history of myelodysplastic syndrome and likely also component of anemia of chronic disease in the setting of his CKD. Has stable leukopenia, WBC count withinhis normal range at this time, normal platelets. Normal INR/PT with no evidence of bleeding. Most recently required transfusion 2 weeks ago for abnormal labs. Type and screen ??And consent completed in the ED. Status post 1 unit. ??Receives erythropoietin infusions every 2 weeks, was due for 1 today but delayed due to admission. Self administers at home . Low Haptoglobin a, bilirubin could be related to liver cirrhosis. Discussed with Hematology - no concerns for hemolysis Hematology??reviewed PS - no concerns ?? ? Repeat H&H following transfusion- improved to 8.2 after 2 units PRBC ? Goal hemoglobin>7.0, additional units as needed to reach goal ??? Complete erythropoietin infusion as soon as returns home ??? Has appointment with game programmer Dr Crockett on 06/14/24 ??? Continue home urea powder and magnesium supplementation ? Decompensated hepatic cirrhosis (K72.90) ? Caused by History of alcohol abuse (F10.11), Hepatitis C (B19.20) ? History of alcohol use disorder and hepatitis C. ??Underwent liver transplant in July 2023 at [facility]. ?Continue home tacrolimus 1 mg in a.m. and 5 mg in p.m. ???Will obtain tacrolimus level ???Contacted his transplant team Maria G [phone] ? Hyperkalemia: Pt received a dose of lokelma, with improvement in K level Her transplant NO BAKE MOLDER Maria G agreed with the plan Objective ?Patient seen and examined at bedside. ?Feels well ,??wants to go home Ambulating steady without any??issues ? Vital Signs?? Temperature: 98.1 DegF (05/26/24 15:00:00) Temperature Route: Oral (05/26/24 15:00:00) Pulse Rate: 63 bpm (05/26/24 15:00:00) Respiratory Rate: 18 br/min (05/26/24 15:00:00) Systolic Blood Pressure:??148 mm Hg??High (05/26/24 15:00:00) Diastolic Blood Pressure: 74 mm Hg (05/26/24 15:00:00) Blood pressure sites: Arm, right (05/26/24 15:00:00) Mean Arterial Pressure: 105 mm Hg (05/25/24 23:23:00) Pulse Pressure: 65 mm Hg (05/25/24 23:23:00) Oxygen Saturation: 100 % (05/26/24 15:00:00) Mode of Delivery (Oxygen): Room air (05/26/24 15:00:00) Early Warning Score: 4 (05/26/24 15:00:50) ? . Physical Exam General: Lying down in the bed??, not in any distress. Lungs: Clear to auscultation Heart: RRR, No murmurs, gallops or rubs Abdomen: Soft, non tender, non -??distended,?? Bowel sounds + CUSTOMER MARKETING ASSISTANT: Alert awake and oriented X??3 . No focal nerve deficits appreciated Musculoskeletal/ Extremities: No peripheral edema Consultants Hematology Pending Results Add On Lab Order ordered on 05/25/2024 Add On Lab Order ordered on 05/25/2024 Add On Lab Order ordered on 05/26/2024 Add On Lab Order ordered on 05/26/2024 Add On Lab Order ordered on 05/26/2024 Potassium Level ordered on 05/26/2024 Transfuse RBCs ordered on 05/25/2024 Transfuse RBCs ordered on 05/26/2024 Follow-Up Appointments Added Follow Up ?Time Frame ?Comments Follow up with your transplant team at [place], [place] F/u with DR Crockett on 06/14/24 Maxine Victoria MD?1 week?f/u cbc??and bmp in 5 days Patient Instructions You presented to the ER for blood transfusion , received 2 units blood?? Follow up with the Senior Architect?? If?? feeling weak, dizzy, sob , or anyother??warning symptoms, go to the ER immediately? Post Discharge Care Diet: ??Cardiac diet ?? Results Test Name Test Result Date/Time Hgb 8.2 Gm/dL 05/26/2024 08:11 EST Hct 24.0 % 05/26/2024 08:11 EST Sodium 133 mmol/L 05/26/2024 13:35 EST Potassium 4.8 mmol/L 05/26/2024 13:35 EST Chloride 99 mmol/L 05/26/2024 13:35 EST Bicarbonate Level 23 mmol/L 05/26/2024 13:35 EST Anion Gap 11 05/26/2024 13:35 EST ?? 35_ minutes spent on discharge * Tucker GASTON, Anna Swain: PERFORM Event Display: Patient Education/Instruction Authored Date: [id number] Inpatient Adult Discharge Instructions. [address] [address] [phone] Name: ROCAEL LAW : 1960?? Visit: 05/25/2024 18:54?? Current Date: 05/26/2024 17:07 ?? Account: [id number]?? Inpatient Adult Discharge Instructions We would like to thank you for allowing us to assist you with your healthcare needs. The following includes patient education materials and information regarding your injury/illness. Our entire staffstrives to provide an excellent experience for our patients and their families. PLEASE ENSURE YOU FOLLOW-UP PER THE INSTRUCTIONS BELOW! ?? YOUR OPINION IS IMPORTANT TO US! Please complete the survey you may receive by mail or email. Your feedback will be used to make improvements to the healthcare experiences of our patients and their families. Surveys are administered by [facility]. ?? If further treatment with your primary care physician or another doctor is recommended, it is important for you to keep the appointment. Call your primary care physician or return to the Emergency Department immediately if your condition worsens, fails to improve, or new symptoms develop. If you need to find a doctor, you can call [facility] Link for a referral at [phone] or toll free at [phone] or log in to [email or web address].. ?? [facility], in keeping with [facility] guidance, no longer requires face masks for staff, patientsor visitors in most situations. Similiar to time spent indoors at other locations, there is the chance that you were exposed to repiratory viruses during your time with us (such as flu or COVID-19). If you develop symptoms concerning for a viral respiratory infection, please seek testing (and treatment if indicated) from your medical provider or home test kit. ?? You can view and manage your care through the patient portal or by using a health care zeinab of your choosing. [employer] is a website that allows you to securely view your medical information including your hospital discharge summary, office visit summaries, medications and follow-up visits. You can also request appointments, renew medications, and request access to your medical information using a health care zeinab of your choosing, or just ask a question. You can enroll at [email or web address] or register during your next office visit. You have been discharged from [facility], Patient Care Unit: W3??. If you have any questions regarding these instructions, including results of studies pending, afteryou leave, please call us and we will be happy to assist you 02/12. [facility] Your Care Team Attending Physician Koko PEREZ, Donna Cervantes?? Consulting Providers Donna Sutherland MD?? Discharging Providers Donna Sutherland MD Reason for Your Visit anemia?? Your Diagnosis Acute on chronic anemia Chronic kidney disease Decompensated hepatic cirrhosis General medical Hepatitis C History of alcohol abuse Myelodysplastic disease Tests Performed Below is a partial list of the tests performed during your hospitalization. You may have had other tests and procedures not included in this list. Please discuss all test results with your provider. APTT BASIC METABOLIC PANEL COMPLETE CBC WITH DIFF Comprehensive Metabolic Panel H + H HAPTOGLOBIN Hold Blue Top Tube Lactic Acid Level LDH Lipase Lytes Potassium Level PROTIME PROFILE RETICULOCYTE COUNT TACROLIMUS TOTAL AND DIRECT BILIRUBIN Type and Screen Urinalysis w/hold for Urine Culture Add On Lab Order?? Basic Metabolic Panel?? Bilirubin Total + Direct (TOTAL AND DIRECT BILIRUBIN)?? CBC w/ Differential (COMPLETE CBC WITH DIFF)?? Comprehensive Metabolic Panel?? Electrolytes (Lytes)?? Haptoglobin?? Hgb + Hct (H + H)?? Hold Blue Top Tube?? INR (PROTIME PROFILE)?? LDH?? Lactic Acid Level?? Lipase?? PTT (APTT)?? Peripheral Blood Smear Review?? Potassium Level?? Reticulocyte Ct (RETICULOCYTE COUNT)?? Tacrolimus Level (TACROLIMUS)?? Transfuse RBCs?? Type and Screen?? Urinalysis w/hold for Urine Culture?? Primary Care Provider Maxine Victoria MD? Advance Directive Health Care Proxy on File Yes - Health Care Proxy Discharge Vitals Temperature: 98.1 DegF Height: 175 cm Pulse Rate: 63 bpm Weight: 76.2 kg Respiratory Rate: 18 br/min Body Mass Index: 24.88 kg/m2 Systolic Blood Pressure:??148 mm Hg??High Body surface area: 1.92 Diastolic Blood Pressure: 74 mm Hg ?? Oxygen Saturation: 100 % ?? Studies Pending All studies ordered during this hospital stay have been completed unless listed below. Please discuss all pending results with your provider listed above in these instructions. ?? Add On Lab Order?? Peripheral Blood Smear Review?? Transfuse RBCs?? What to do next Instructions From Your Doctor You presented to the ER for blood transfusion , received 2 units blood?? Follow up with the Senior Architect?? If?? feeling weak, dizzy, sob , or anyother??warning symptoms, go to the ER immediately? Orders??:Cardiac diet? 05/26/24 16:55:00 EST?? Prescriptions??, ??05/26/24 16:55:00 EST?? You Need to Schedule the Following Appointments Follow Up with??Follow up with your transplant team at [place], [place] Follow Up with??F/u with DR Crockett on 06/14/24 Follow Up with??Maxine Victoria MD When:??Within 1 week Why: f/u cbc??and bmp in 5 days Where: [address] [place] [phone] Discharge Medications ROCAEL LAW :1960 Visit Date:05/25/2024 Medications: Please continue your medications until treatment is completed or stopped by your provider. Medications not listed below should be discontinued. Discuss any questions related to medications with your provider. What How Much When Instructions Next Dose New Miscellaneous Rx (BMP in 5 days) See instructions Pls send the results toMaxine Oquendo ?? Printed Prescription lab due 05/31/2024 New Miscellaneous Rx (CBC in 5 days) See instructions Pls send the results to Dr Julien Goodman / ??Davin Allison ?? Printed Prescription lab due 05/31/2024 Unchanged Magnesium Oxide (magnesium oxide 400 mg oral capsule) 1 capsule Oral Twice a day tonight Unchanged Pantoprazole (pantoprazole 40 mg oral delayed release tablet) 1 tab(s) Oral Daily tomorrow Unchanged Tacrolimus (tacrolimus 1 mg oral capsule) 4 Milligram Oral Daily tomorrow Unchanged Tacrolimus (tacrolimus 5 mg oral capsule) 5 Milligram Oral Daily at Bedtime tonight Unchanged Urea (Urea Powder) 15 gram Oral Daily tomorrow Unchanged Ursodiol (ursodiol 300 mg oral capsule) 1 capsule Oral Twice a day tonight ?? What How Much When Comments Stop Taking sodium zirconium cyclosilicate (sodium zirconium cyclosilicate 10 g oral powder for reconstitution) 10 gram Oral Daily Stop Taking Sulfamethoxazole/ Trimethoprim (Bactrim 400 mg-80 mg oral tablet) 1 tab(s) Oral Friday, Friday and Friday Prescription Given During Visit Miscellaneous Rx (BMP in 5 days) - , # 1 each, 0 Refills, Pls send the results toMaxine Oquendo?? Miscellaneous Rx (CBC in 5 days) - , # 1 each, 0 Refills, Pls send the results to Dr Julien Goodman / Davin Allison?? Laboratory Results Below is a partial list of the most recent Laboratory test results done prior to this discharge. You may have had other tests and procedures not included in this list. Please discuss all test resultswith your provider. Est Creatinine Clearance - 57.09 mL/min (05/26/2024) RBC Available - IS (05/26/2024) RBC Unit ID - [id number] (05/26/2024) APTT (05/25/2024) ???APTT - 24.1 seconds BASIC METABOLIC PANEL (05/26/2024) ???Sodium - 133 mmol/L???Potassium - 5.8 mmol/L???Chloride - 101 mmol/L???Bicarbonate Level - 23 mmol/L???Anion Gap - 9???Glucose Level - 101 mg/dL???BUN - 33 mg/dL???Creatinine-Blood - 1.32 mg/dL???Estimated GFR Creatinine - 61 ML/MIN/1.73 M2???Calcium - 9.7 mg/dL COMPLETE CBC WITH DIFF (05/26/2024) ???WBC - 2.6 k/mm3???RBC - 2.68 m/mm3???Hgb - 8.1 Gm/dL???Hct - 24.1 %???MCV - 89.9 femtoliters???MCH - 30.2 pg???MCHC - 33.6 Gm/dL???Platelet Count - 245 k/mm3???RDW-SD - 60.3 femtoliters???MPV - 11.1 femtoliters???Nucleated RBC (Automated) - 0.0 #/100 WBC'S???Abs. NRBC - 0.0 k/mm3???Abs. Neut - 1.2 k/mm3???Abs. Lymph - 0.5 k/mm3???Abs. [place] - 0.5 k/mm3???Abs. Eo - 0.4 k/mm3???Abs. Baso - 0.0 k/mm3???Neut % - 45.1 %???Lymph % - 19.1 %???[place] % - 20.2 %???Eos % - 14.8 %???Baso % - 0.4 %???Imm Gran - 0.4 %???Abs. Imm Gran - 0.0 k/mm3 Comprehensive Metabolic Panel (05/25/2024) ???Sodium - 133 mmol/L???Potassium - 5.3 mmol/L???Chloride - 104 mmol/L???Bicarbonate Level - 20 mmol/L???Anion Gap - 9???Glucose Level - 112 mg/dL???BUN - 43 mg/dL???Creatinine-Blood - 1.55 mg/dL???Estimated GFR Creatinine - 50 ML/MIN/1.73 M2???Calcium - 9.2 mg/dL???Protein, Total - 6.8 Gm/dL???Albumin - 4.1 Gm/dL???AG Ratio - 1.5???Alkaline Phosphatase - 74 units/L???AST (SGOT) - 13 units/L???ALT (SGPT) - 15 units/L???Bilirubin, Total - 0.6 mg/dL H + H (05/26/2024) ???Hgb - 8.2 Gm/dL???Hct - 24.0 % HAPTOGLOBIN (05/26/2024) ???Haptoglobin - 20 mg/dL Hold Blue Top Tube (05/25/2024) ???Hold Blue Top - SPECIMEN DISCARDED AFTER 4 HOURS. Lactic Acid Level (05/25/2024) ???Lactate - 1.0 mmol/L LDH (05/26/2024) ???LDH - 210 units/L Lipase (05/25/2024) ???Lipase - 23 units/L Lytes (05/26/2024) ???Sodium - 133 mmol/L???Potassium - 4.8 mmol/L???Chloride - 99 mmol/L???Bicarbonate Level - 23 mmol/L???Anion Gap - 11 Potassium Level (05/26/2024) ???Potassium - 5.0 mmol/L PROTIME PROFILE (05/25/2024) ???INR - 1.1???Protime (PT) - 11.5 seconds RETICULOCYTE COUNT (05/26/2024) ???Retic Count - 2.2 %???Retic Count Corrected - 1.2 %???Retic Production Index - 0.6 % TACROLIMUS (05/25/2024) ???Tacrolimus Level - 10.1 ng/mL TOTAL AND DIRECT BILIRUBIN (05/26/2024) ???Bilirubin, Total - 1.2 mg/dL???Bilirubin, Direct - 0.4 mg/dL???Bilirubin, Indirect - 0.8 mg/dL Type and Screen (05/25/2024) ???Blood Type - O Positive???Antibody Screen - Negative Urinalysis w/hold for Urine Culture (05/25/2024) ???Appear/Color, Urine - LIGHT YELLOW???Specific [place], Urine - 1.015???pH, Urine - 6.0???Albumin, Urine - TRACE???Glucose, Urine - NEGATIVE???Ketones, Urine - NEGATIVE???Bilirubin, Urine - NEGATIVE???Hemoglobin, Urine - NEGATIVE???Nitrite, Urine - NEGATIVE???Leukocyte, Urine - NEGATIVE???Urobilin ogen - NORMAL? ?WBC's, Urine - 1 /HPF? ?RBC's, Urine - <1 /HPF? ?Hold Urine Culture - Testing available 48 hours from time of collection. You will be contacted within 72 hours with your results. Allergies (NKA means No Known Allergies) NKA Problems Active Problems??(4) Chronic anemia?? CKD (chronic kidney disease)?? GERD without esophagitis?? Status post liver transplant?? Education Materials Below is the list of Educational Leaflet Providered with your Discharge Instructions. [employer] Patient Education - Chronic Kidney Disease (CKD)?? Valuables and Belongings I fully understand and agree that [facility] accepts no responsibility for all my personal property including clothing, toilet articles, radios, jewelry, dentures, hearing aids, rings, money, or any other property that is in my possession or is brought to me after admission. I understand certain valuables may be placed in a hospital safe for a short period of time. I understand that the hospital is not liable for loss or damage due to accident, fire, or other natural occurrence while said property is in the safe. I accept full responsibility for any personal property that I keep with me, and will not hold the hospital responsible in case of loss or disappearance. I acknowledge that i have been encouraged to send valuables and belongings home. ?? Review of Valuable and Belonging List: With patient Date for Pt to Sign Valuables/Belongings: 05/25/24 22:07:00 ?? Other Discharge Information ? Pulmonary Rehab Status?? Pulmonary Rehab Discharge Status?? Respiratory Rate: 18 br/min ? Common Emergency Awareness Tips IS IT A STROKE? Act FAST and Check for these signs: FACE Does the face look uneven? ARM Does one arm drift down? SPEECH Does their speech sound strange? TIME Call at any sign of stroke ?? Heart Attack Signs Chest discomfort: Most heart attacks involve discomfort in the center of the chest and lasts more than a few minutes, or goes away and comes back. It can feel like uncomfortable pressure, squeezing, fullness or pain. Discomfort in upper body: Symptoms can include pain or discomfort in one or both arms, back, neck, jaw or stomach. Shortness of breath: With or without discomfort. Other signs: Breaking out in a cold sweat, nausea, or lightheaded. Remember, MINUTES DO MATTER. If you experience any of these heart attack warning signs, call to get immediate medical attention! ?? Smoking can increase your chances of developing chronic health problems and can cause harmful effects to other family members in your house. If you smoke, you are strongly encouraged to quit. Please call [facility] Link at [phone] or [phone] ([phone]) or log in to [email or web address] for referrals to smoking cessation programs. ?? 988 Suicide & Crisis Lifeline is available 02/12 if you or someone you know needs to find a reason to keep living. By calling 944 you'll be connected to a skilled, trained counselor at a crisis center in your area. INPATIENT DISCHARGE INSTRUCTIONS SIGNATURE PAGE ROCAEL LAW Location:[facility] Registration Date and Time:05/25/2024 18:54 EST Primary Care Physician: Maxine Victoria MD, Attending Physician: Koko PEREZ, Donna Cervantes, I THANHBLAINEO, have received the above patient education materials/instructions and have verbalized understanding. If ambulance or transport services are being used I further acknowledge being given a choice of service. ?? If you need to contact me, please call me at this number: . Patient/Induction Machine Operator Name: Patient/Induction Machine Operator Signature: Relationship to Patient: Witness Name/Signature: Date: * Ceballos RN, Anna Swain: PERFORM Event Display: Patient Education Leaflets Authored Date: [id number] Understanding Cirrhosis ?? 66932 Understanding Cirrhosis Cirrhosis is a lifelong (chronic) liver problem. It results from damaged and scarred liver tissue. Cirrhosis can???t be cured. But it can be treated. The liver The liver is a large organ in the upper right part of the belly. A healthy liver breaks down proteins, carbohydrates, and fats. It makes a digestive fluid called bile. It also removes toxins from theblood. The liver is part of the blood- clotting process. ?? Causes of cirrhosis The causes of cirrhosis may include: ??? Alcohol use ??? Viral liver infections, such as hepatitis B and C ??? Chronic bile duct blockage ??? Some inherited diseases that cause too much copper or iron to be stored in the liver ??? Some medicines ??? Autoimmune disease Another cause is nonalcoholic fatty liver disease. This is very common. It often happens in people who have other risk factors linked to extra weight or obesity. These include: ??? Diabetes ??? High blood pressure ??? High cholesterol or triglycerides ??? Other metabolic problems ?? Common signs and symptoms Common symptoms of cirrhosis include: ??? Severe tiredness (fatigue) ??? Weakness ??? Low appetite ??? Upset stomach (nausea) and vomiting ??? Weight loss or weight gain ??? Yellowish skin and eyes (jaundice) ??? Severe itching ??? Swollen belly and legs ??? Mild pain in the right upper side of your belly ??? Intestinal bleeding ??? Easy skin bruising and bleeding ??? Enlarged (dilated) veins in the esophagus and stomach. This can lead to serious GI bleeding. ??? Poor mental function ??? Spider-like blood vessels ?? When you have cirrhosis When you have cirrhosis, your liver gets damaged and scarred. It doesn???t work as it should. In some cases, cirrhosis can lead to liver failure. If it does, you may need a liver transplant.??Cirrhosis puts you at higher risk for liver cancer. Other tests are needed to look for complications of cirrhosis and check for liver cancer. Keep all follow-up appointments with your provider. You can slow down cirrhosis and prevent more liver damage if you stop all alcohol use. Here are other changes you can make: ??? Lose extra weight ??? Control blood sugar if you have diabetes ??? Don't eat raw or uncooked shellfish, fish, meat, and unpasteurized dairy products ??? Limit salt in food and drinks ??? Talk with a dietitian for meal planning (due to risk of malnutrition) ??? Talk with your provider about all the medicines, vitamins, and supplements you take ??? Ask your provider if hepatitis A and B vaccines are right for you ?? Last Reviewed Date: 2023 ?? [employer]. All rights reserved. This information is not intended as a substitute for professional medical care. Always follow your healthcare professional's instructions. ?? * Tucker GASTON, Anna Swain: PERFORM Event Display: Patient Education Leaflets Authored Date: [id number] Anemia ?? 77000 Anemia Anemia is a condition that occurs when your body doesn't have enough healthy red blood cells (RBCs). RBCs are the parts of your blood that carry oxygen all over your body. A protein called hemoglobinallows your RBCs to absorb and release oxygen. Without enough RBCs or hemoglobin, your body doesn'tget enough oxygen. Symptoms of anemia may then occur. What are the symptoms of anemia? Some people with anemia have no symptoms. But most people have symptoms that range from mild to severe. Depending on the cause and severity of the anemia, symptoms can occur slowly or quickly. These can include: ??? Extreme tiredness (fatigue) ??? Weakness ??? Pale skin ??? Shortness of breath ??? Feeling dizzy or fainting ??? Fast or irregular heartbeat ??? Trouble doing normal amounts of activity ??? Yellowing of your eyes, skin, or mouth, and dark urine (jaundice) ??? Headache ??? Cold handsor feet ??? Chest pain ??? Pounding or whooshing sound in your ears ?? What causes anemia? Anemia can happen when your body: ??? Loses too much blood ??? Doesn't make enough RBCs ??? Destroys your RBCs at a faster rate than it can replace them ??? Doesn't make a normal amount of hemoglobin in your RBCs These problems can happen for many reasons, including: ??? A condition you are born with (congenital or inherited). This includes sickle cell disease or thalassemia. ??? Heavy bleeding for any reason. This includes injury, surgery, childbirth, or even heavy menstrual periods. ??? Being low in certain nutrients. These can include iron, folate, or vitamin B-12. ??? Some long-term (chronic) conditions. These include liver disease, diabetes, rheumatoid arthritis, or kidney disease. ??? Some chronic infections. These include tuberculosis or HIV. ??? Cancer. ??? Exposure to certain medicines. This includes chemotherapy medicines. There are different types of anemia. Your healthcare provider can tell you more about the type of anemia you have and what may have caused it. ?? How is anemia diagnosed? To diagnose anemia, your healthcare provider orders blood tests. These can include: ??? Complete blood cell count (CBC). This test measures the amounts of the different types of blood cells. ??? Blood smear. This test checks the size and shape of your blood cells. To do the test, a drop of your blood is looked at under a microscope. A stain is used to make the blood cells easier to see. ??? Iron studies. These tests measure the amount of iron in your blood. Your body needs iron to make hemoglobin in your RBCs. ??? Vitamin B-12 and folate studies. These tests check for some of the components that help give RBCs a normal size and shape. ??? Reticulocyte count. This test measures the amount ofnew young (immature) RBCs that your bone marrow makes. ??? Hemoglobin electrophoresis. This test checks for problems with your hemoglobin in RBCs. ??? Lactate dehydrogenase (LDH) and haptoglobin levels. These tests check the amount of substances in your blood called LDH and haptoglobin. Both LDH and haptoglobin levels can be abnormal with a type of anemia that destroys red blood cells (hemolyticanemia). ??? Bone marrow aspiration and biopsy. These tests are completed at the same time and evaluate the bone marrow where RBCs are made. ?? How is anemia treated? Treatment for anemia is based on the type of anemia, its cause, and the severity of your symptoms. Treatments may include: ??? Diet changes. This includes increasing the amount of certain nutrients in your diet, such as iron, vitamin B-12, or folate. Your healthcare provider may also prescribe nutrient supplements. ??? Medicines. Certain medicines treat the cause of your anemia. Others help buildnew RBCs or ease symptoms. If a medicine is the cause of your anemia, you may need to stop or change it. ??? Blood transfusions. Replacing some of your blood can increase the number of healthy RBCs in your body. ??? Surgery. In some cases, your provider may do surgery to treat the underlying cause of anemia. If you need surgery, your provider will explain the procedure and outline the risks and benefits for you. ?? What are the long-term concerns? If you have certain types of anemia, you can expect a full recovery after treatment. If you have other types of anemia (especially a type you're born with), you'll need to manage it for life. Your provider can tell you more. ?? Last Reviewed Date: 2023 ?? [id number] [employer]. All rights reserved. This information is not intended as a substitute for professional medical care. Always follow your healthcare professional's instructions. ?? * Tucker GASTON, Anna Swain: PERFORM Event Display: Patient Education Leaflets Authored Date: [id number] Chronic Kidney Disease (CKD) ?? [id number] Chronic Kidney Disease (CKD) The role of the kidneys is to remove waste products and extra water from the blood.??When the kidneys don't work as they should, waste products start to build up in the blood. This is called chronic kidney disease (CKD). CKD means that you have kidney damage or a decrease in kidney function lastingat least 3 months. CKD allows extra water, waste, and toxins to build up in the body. This can eventually become life-threatening. You might need dialysis or a kidney transplant to stay alive. This most severe form is called end-stage renal disease. Diabetes is one of the leading causes of chronic renal failure. Other causes include high blood pressure, hardening of the arteries (atherosclerosis), lupus, inflammation of the blood vessels (vasculitis), and past viral or bacterial infections. Certain prwj-frk-wofqbkn pain medicines can cause renal failure when taken often over a long period of time. These include aspirin, ibuprofen, and related anti-inflammatory medicines called NSAIDs (nonsteroidal anti- inflammatory drugs). Home care These guidelines will help you care for yourself at home: ??? If you have diabetes, talk??with yourhealthcare provider about keeping your blood sugar under control. Ask if you need to make and changes to your diet, lifestyle, or medicines. ??? If you have high blood pressure: o Take prescribed medicine to lower your blood pressure to the recommended goal of less than 130/80. o Start a regular exercise program that you enjoy.??Check with your healthcare provider to be sure your planned exerciseprogram is right for you. o Eat less salt (sodium).??Your healthcare provider can tell you how muchsalt per day is safe for you. ??? If you are overweight, talk??with your??healthcare provider??about a weight loss plan. ??? If you smoke, you must quit. Smoking makes kidney disease worse and puts you at risk for developing other serious illnesses.??Talk??with your healthcare provider about ways to help you quit.??For more information, visit the following links: o www.[employer].gov/sites/default/files/pdf/mkibjrpu-uqh-kog-accessible.pdf o www.smokefree.gov o www.cancer.org/healthy/stayawayfromt obacco/guidetoquittingsmoking ??? Most people with??CKD need to follow a special diet. Make sure you understand yours. In general, you will need to limit protein, salt, potassium, and phosphorus.??You also need to limit how much fluid you drink. ??? CKD is a risk factor for heart disease. Talk??with your healthcare provider about any other risk factors you might have and what you can do to lessenthem. ??? Talk??with your healthcare provider about any medicines you are taking to find out if they need to be reduced or stopped. ??? For your own safety, check with your healthcare provider beforetaking any medicines or supplements. Don't use the following edzu-zik-rqskonf medicines. Or consultyour healthcare provider before using them: o Aspirin and NSAIDs such as ibuprofen or naproxen. Using acetaminophen for fever or pain is OK. o Laxatives and antacids containing magnesium or aluminum o Fleet or phospho-soda enemas containing phosphorus o Certain stomach acid-blocking medicine such as cimetidine or ranitidine?? o Decongestants containing pseudoephedrine?? o Herbal supplements ?? Follow-up care Follow up with your healthcare provider as advised. Visit these websites to learn more: ??? [place] [employer] at www.aakp.org ??? National Kidney Foundation at www.kidney.org ??? [place] [employer] at www.kidneyfund.org ??? National Kidney Disease Education Program at www.nkdep.nih.gov If an X-ray, ECG (electrocardiogram), or other diagnostic test was taken, you'll be told of any newfindings that may affect your care. ?? Call 911 Call 911 right away if any of these occur: ??? Severe weakness, dizziness, fainting, drowsiness, orconfusion ??? Chest pain or shortness of breath ??? Heart beating fast, slow, or irregularly ?? When to get medical advice Call your healthcare provider right away if you have any of these: ??? Upset stomach (nausea) or vomiting ??? Fever??of 100.4??F (38??C) or higher, or as advised by your provider ??? Unexpected weight gain or swelling in the legs, ankles, or around the eyes ??? Not peeing a lot, or not peeing at all ??? New symptoms or symptoms that get worse ?? Last Reviewed Date: 2021 ?? 9978-0495 [employer]. All rights reserved. This information is not intended as a substitute for professional medical care. Always follow your healthcare professional's instructions. ?? Patient Care team information Care Team Personnel Name: Kendrick Caba RN Position: S RN Member Role: Primary Care Nurse Name: Vicky Medina RN Position: S RN Member Role: Primary Care Nurse Name: Maxine Victoria MD Position: Reference Physician Member Role: PCP Address: [address] [place] [address] Telecom: Name: Stephanie Chaidez RN Position: S RN Member Role: Primary Care Nurse Name: Haley Mtz RN Position: S RN Member Role: Primary Care Nurse Care Team Related Persons Name: ROCAEL LAW Insurance Providers Guarantor name: ROCAELRonny LAW [facility] Plan Information #: 1 Payer: [facility] Member Number: [id number] Policy Number: NA Group Number: NA Health Plan Information #: 2 Payer: [employer] Member Number: [id number] Policy Number: RUFINO Group Number: [id number]
--- OUTSIDE RECORDS SUMMARY | 2024-06-15 13:09 | XMS_ITS | Continuity of Care Document ---
Author Organization [facility] ter Address [address] [place] [id number] Care Team Providers [employer] Supervisor Name Role Phone Maxine Victoria MD Primary Care Physician Encounter [facility] [place] Date(s): 06/02/24 - 06/11/[address] [id number] Discharge Disposition: A-D/C Home Attending Physician: Alexandre Nunez MD Admitting Physician: Vance Oropeza MD Referring Physician: Not on Staff, Referring MD Encounter Type: Disch IP Allergies, Adverse Reactions, Alerts No Known Allergies Immunizations Given and Recorded Vaccine Date Status Refusal Reason influenza virus vaccine, inactivated 02/25/24 Gaurav rded influenza virus vaccine, inactivated 01/25/22 Gaurav rded influenza virus vaccine, inactivated 01/11/20 Gaurav rded influenza virus vaccine, inactivated 02/07/17 Gaurav rded SARS-CoV-2(COVID-19)mRNA-LNP vac([id number]) 02/25/24 Recorded SARS-CoV-2 mRNA ([id number]) vax 11/23/21 Recorded tetanus/diphtheria/pertussis, acel(Tdap) 07/17/21 Recorded [...] 0, Maintenance, Pls send the results toMaxine Oquendo Diagnosis: Acute kidney injury, anemia, 06/11/24 10:32:00 AM EST, Supply Start Date: 06/11/24 Status: Ordered Quantity: 1.0 Unit: each Repeat number: 1 CBC in 5 days CBC in 5 days, See Instructions, # 1 each, Refills 0, Tot. Refills 0, Maintenance, Pls send the results to Dr Julien Goodman / Davin Allisong: Acute kidney injury, anemia, 06/11/24 10:33:00 AM EST, Supply Start Date: 06/11/24 Status: Ordered Quantity: 1.0 Unit: each Repeat [...] Repeat number: 1 tacrolimus 1 mg oral capsule, extended release See Instructions, Take 3 capsules by mouth every morning before breakfast, and 4 capsules by mouth at bedtime, # 96 capsule, 0 Refills, Maintenance, 06/11/24 11:41:00 AM EST, Partial fill upon patientrequest if the prescription is for a schedule II opioid drug. Start Date: 06/11/24 Status: Ordered Quantity: 96.0 Unit: capsule Repeat number: 1 ursodiol 300 mg oral [...] Active Status post liver transplant Confirmed Active Results Radiology Reports * Exam Date Time Procedure Performing Provider Status 06/08/24 4:31 PM Chest Portable Ivon Briceño; Aditya (Ve rified) Notes: (Chest Portable) Reason For Exam: rule out infection;Fever RESULT: Chest Portable Chest Portable Reason: Fever; rule out infection; Clinical Question(s): Pneumonia / Pneumonia COMPARISON: 03/20/2017 FINDINGS: LINES AND TUBES: None. LUNGS AND PLEURA: Subsegmental linear scarring or atelectasis in the right lower lung. No consolidation. Normal pulmonary vascularity. No pleural effusion. No pneumothorax. HEART, MEDIASTINUM AND DENTON: Heart is at the upper limits of normal for size. Normal mediastinal and hilar contour. BONES AND SOFT TISSUES: No acute abnormality. IMPRESSION: No evidence of acute abnormality. WSN: [id number] Ordering Physician: Shilo Knight Dictated By: Rufino Bridges MD Dictated Date/Time: 06/08/24 4:49 pm Reviewed By: Rufino Bridges MD Signed By: Rufino Bridges MD Signed Date/Time: 06/08/24 4:49 pm Transcribed By: ZINA Transcribed Date/Time: 06/08/24 4:49 pm * Exam Date Time Procedure Performing Provider Status 06/08/24 2:13 PM US Doppler Ext Lower Venous Bilat Charleen Horton; Aditya (Verified) Notes: (US Doppler Ext Lower Venous Bilat) Reason For Exam: Pain/Tenderness Extremities RESULT: US Doppler Ext Lower Venous Bilat US Doppler Ext Lower Venous Bilat Reason: Pain Tenderness Extremities; Clinical Question(s): Thrombosis COMPARISON: None IMAGING TECHNIQUE: Ultrasound of the veins from the groin through the calf was performed using grayscale, color, and spectral Doppler ultrasound assessing for complete compressibility and normal flowcharacteristics. FINDINGS: RIGHT LOWER EXTREMITY: Common femoral vein: Patent. No thrombosis. Femoral vein: Patent. No thrombosis. Popliteal vein: Patent. No thrombosis. Gastrocnemius veins: The visualized portions are patent without evidence of thrombosis. Peroneal veins: The visualized portions are patent without evidence of thrombosis. Posterior tibial veins: The visualized portions are patent without evidence of thrombosis. LEFT LOWER EXTREMITY: Common femoral vein: Patent. No thrombosis. Femoral vein: Patent. No thrombosis. Popliteal vein: Patent. No thrombosis. Gastrocnemius veins: The visualized portions are patent without evidence of thrombosis. Peroneal veins: The visualized portions are patent without evidence of thrombosis. Posterior tibial veins: The visualized portions are patent without evidence of thrombosis. OTHER FINDINGS: None. IMPRESSION: No evidence of deep venous thrombosis. WSN: [id number] Ordering Physician: Shilo Knight Dictated By: Jarad Horton MD Dictated Date/Time: 06/08/24 2:05 pm Reviewed By: Jarad Horton MD Signed By: Jarad Horton MD Signed Date/Time: 06/08/24 2:05 pm Transcribed By: ZINA Transcribed Date/Time: 06/08/24 1:40 pm Vital Signs Most recent to oldest [Reference Range]: 1 2 3 Height 173.5 cm (06/11/24 9:52 AM) 173.5 cm (06/11/24 4:14 AM) 173.5 cm (06/10/24 8:20 PM) Weight 77.2 kg (06/11/24 4:14 AM) 77.5 kg (06/08/24 4:25 AM) 77.0 kg (06/06/24 4:21 AM) Oxygen Saturation [94-100 %] 98 % (06/11/24 9:52 AM) 100 % (06/11/24 4:14 AM) 100 % (06/10/24 8:20 PM) Pulse Rate [55-90 bpm] 78 bpm (06/11/24 9:52 AM) 65 bpm (06/11/24 4:14 AM) 64 bpm (06/10/24 8:20 PM) Body Mass Index [18.5-24.99 kg/m2] 25.65 kg/m2 *H* (06/11/24 4:14 AM) 25.75 kg/m2 *H* (06/08/24 4:25 AM) 25.58 kg/m2 *H* (06/06/24 4:21 AM) Blood Pressure [90-138/55-84 mm Hg] 129/69mm Hg (06/11/24 9:52 AM) 123/76mm Hg (06/11/24 4:14 AM) 128/81mm Hg (06/10/24 8:20 PM) Respiratory Rate [16-30 br/min] 18 br/min (06/11/24 9:52 AM) 18 br/min (06/11/24 4:14 AM) 18 br/min (06/10/24 8:20 PM) Temperature [96.8-100.4 DegF] 98.1 DegF (06/11/24 9:52 AM) 98.6 DegF (06/11/24 4:14 AM) 98.4 DegF (06/10/24 8:20 PM) Mode of Delivery (Oxygen) Room air (06/11/24 9:52 AM) Room air (06/11/24 4:14 AM) Room air (06/10/24 8:20 PM) Blood pressure sites Arm, right (06/11/24 9:52 AM) Arm, right (06/11/24 4:14 AM) Arm, right (06/10/24 8:20 PM) Temperature Route Oral (06/11/24 9:52 AM) Oral (06/11/24 4:14 AM) Oral (06/10/24 8:20 PM) Dry Weight 77 kg (06/10/24 4:40 AM) 77 kg (06/03/24 10:00 AM) 76.7 kg (06/02/24 4:09 PM) Weight Obtained Via Bed scale (06/11/24 4:14 AM) Bed scale (06/06/24 4:21 AM) Bed scale (06/05/24 12:10 PM) Dry Weight Obtained Via Standing scale (06/02/24 3:42 PM) Social History Social History Type Response Smoking Status Former smoker, quit more than 30 days ago; Type: Cigarettes entered on: 06/03/24 Sex Sex Representation Male (finding) Admission evaluation note * Justine PEREZ, Aleena: MODIFY, PERFORM Event Display: Admission Note Authored Date: Patient: ??IVELISSE JOELANDO ? Age:??64 Years?Sex:??Male?:??1960?? History of Present Illness Patient is 64-year-old past medical history of??cirrhosis secondary to hepatitis C and alcohol use disorder status post liver transplant (July 2023, [facility]) currently on tacrolimus, CKD, myelodysplastic syndrome receiving weekly erythropoietin, transfusion dependent, who??presented??on recommendation of his PCP for abnormal laboratory values.? Patient had routine labs approximately 2 days ago, resulted with low sodium.?? Patient was??advised to attend for further evaluation. ??Patient states that this is the first time this has happenedto him.?? He has not noticed any??changes to his general wellbeing??the last few days to weeks.?? He denies fatigue,??reduced appetite, nausea, vomiting, diarrhea,??polyuria,??changes to urine,??headache, swelling of ankles, orthostatic symptoms.?? He states that his medications have not changed recently.?States his appetite is good,??and he eats too much .?His hemoglobin was low, he declined a blood transfusion in the emergency department. ?? Labs are notable for sodium 121, potassium 5, chloride 89, bicarb 20, anion gap 12.?? Leukos 106.?? BUN 31, creatinine 1.27.?? AST, ALT, bilirubin normal. Serum osmolality 259.?? Urine creatinine 152, urine sodium 27. Review of Systems as per HPI?? Objective Vital Signs?? Temperature: 98 DegF (06/02/24 21:32:00) Temperature Route: Oral (06/02/24 21:32:00) Pulse Rate: 59 bpm (06/02/24 21:32:00) Respiratory Rate: 18 br/min (06/02/24 21:32:00) Systolic Blood Pressure:??152 mm Hg??High (06/02/24 21:32:00) Diastolic Blood Pressure: 69 mm Hg (06/02/24 21:32:00) Blood pressure sites: Arm, left (06/02/24 21:32:00) Mean Arterial Pressure: 94 mm Hg (06/02/24 15:42:00) Pulse Pressure: 83 mm Hg (06/02/24 21:32:00) Oxygen Saturation: 99 % (06/02/24 21:32:00) Mode of Delivery (Oxygen): Room air (06/02/24 21:32:00) ? Intake/Output? No Data Available ? Physical Exam General Appearance: The patient is in NAD. HEET:?? MM most.?? Cardiovascular: Systolic murmur appreciable throughout precordium.??JVD approx ~10cm, assessment ofdistension limited by presence of hepatic transplant.?? Respiratory: ??Breath sounds clear to auscultation bilaterally. No wheezing. Good air movement throughout both lungs. GI: Soft. Nontender and nondistended. Liver??transplant palpable in RUQ. Normal bowel sounds present throughout abdomen.? MS: ??No edema or erythema in the lower extremities.?? Neuro: ??No slurred speech. No??focal neurological deficits??on observation?? Psych: Alert, conversing appropriately Assessment/Plan Diagnoses Acute on chronic anemia ??(D64.9) GERD without esophagitis ??(K21.9) Hepatitis C ??(B19.20) History of alcohol abuse ??(F10.11) Hyponatremia ??(E87.1) Leukopenia ??(D72.819) Myelodysplastic syndrome ??(D46.9) Status post liver transplant ??(Z94.4) ?? Assessment:??Patient is 64 y/o with history of cirrhosis s/p liver transplant who presents with asymptomatic hyponatremia of unknown duration.? Hyponatremia (E87.1):??Patient with newly identified hyponatremia. Patient states this is the firsttime he has had hypoNa, however he??is on urea powder. He is??euvolemic on examination.??There are multiple possible contributory factors causing his hyponatremia. It may be primarily related to cirrhosis and activation of RAAS.??Tacrolimus additionally can cause hyponatremia via various pathways,??along with??hyperkalemia.??There is no pul??edema/hypoxia suggestive of acute CHF, last echo 2023 showed EF 60-65%.??With hyponatremia and mild hyperkalemia, could potentially be related to endocrinopathy though??unlikely in the absence??of any other systemic symptoms. ?? Serum osm??low, urine studies pending.? - Add on TSH?? - Urine osmolality?? - Urine Na, Cl, K to assess primary renal /tubule related cause - BMP q4hrly x3 - Renal consult in AM?? - Continue urea powder?? - Will do NaCl 75cc/hr to assess response ?? Status post liver transplant (Z94.4) ?Associated with??Hepatitis C (B19.20),??History of alcohol abuse (F10.11) ? Liver transplant in July 2023??at [facility].??Care is in [facility] at??[place]??with??regular visits to [place]??DC. Tacrolimus dose recently changes to 4mg BID. ?? Plan -Continue tacrolimus at 4mg BID?? -Continue Ursodiol -Transplant team, last number listed [phone] -Ensure follow up with Transplant Team - tacrolimus level added ?? Acute on chronic anemia (D64.9):??Has history of chronic normocytic anemia, baseline hemoglobin typically around 7???8 per patient.??Multifactorial in etiology, has history of myelodysplastic syndrome and likely also component of anemia of chronic disease in the setting of his CKD. Patient declines RBC transfusion. ?? Plan: ? Goal hemoglobin>7.0 ??? Complete erythropoietin infusions as outpatient ?Follow-up with director of strategic sourcing at [facility] ?? Myelodysplastic syndrome (D46.9) ?Associated with??Leukopenia (D72.819) ? Known MDS.?? - Follow up outpatient? GERD without esophagitis (K21.9):??Continue PPI ?? VTE Prophylaxis:??held, anemia ?? Discharge Planning:??likely home? Ongoing Medical Necessity:??hyponatremia? Code Status:??FULL? Patient seen and discussed with attending, ?? ROMMEL Whipple PGY-2 internal medicine-pediatrics?? Pager Number [phone] ? Histories Allergies Allergies ?(Active and Proposed Allergies Only) NKA? (Severity: Unknown severity, Onset: Unknown) ? Past Medical History/Problem List Active Problems(4) Chronic anemia CKD (chronic kidney disease) GERD without esophagitis Status post liver transplant ? Past Surgical History No surgery history documented. ? Social History Alcohol Details:??Use: Past. Tobacco Details:??Use: Former smoker, quit more than 30 days ago. ??Type: Cigarettes. ? Psychosocial History ?? Family History Family History Unknown. ? Medications Home Medications Magnesium Oxide (magnesium [...] oral capsule)?300?Milligram?1?capsule?By Mouth?2 times a day ? Results Recent Labs BLOOD BANK Blood Type O Positive ()?? 06/02/2024 19:40 Antibody Screen Negative ()?? 06/02/2024 19:40 ?? BLOOD COUNT & DIFF WBC 2.8 k/mm3 (Low)?? 06/02/2024 18:40 RBC 2.02 m/mm3 (Low)?? 06/02/2024 18:40 Hgb 6.3 Gm/dL (Critical)?? 06/02/2024 18:40 Hct 17.4 % (Critical)?? 06/02/2024 18:40 MCV 86.1 femtoliters ()?? 06/02/2024 18:40 MCH 31.2 pg ()?? 06/02/2024 18:40 MCHC 36.2 Gm/dL ()?? 06/02/2024 18:40 Platelet Count 198 k/mm3 ()?? 06/02/2024 18:40 RDW-SD 59.4 femtoliters (High)?? 06/02/2024 18:40 MPV 9.7 femtoliters ()?? 06/02/2024 18:40 Nucleated RBC (Automated) 0.0 #/100 WBC'S ()?? 06/02/2024 18:40 Abs. NRBC 0.0 k/mm3 ()?? 06/02/2024 18:40 Abs. Neut 1.1 k/mm3 (Low)?? 06/02/2024 18:40 Abs. Lymph 0.7 k/mm3 (Low)?? 06/02/2024 18:40 Abs. Esmeralda 0.7 k/mm3 ()?? 06/02/2024 18:40 Abs. Eo 0.4 k/mm3 ()?? 06/02/2024 18:40 Abs. Baso 0.0 k/mm3 ()?? 06/02/2024 18:40 Neut % 38.5 % (Low)?? 06/02/2024 18:40 Lymph % 23.4 % ()?? 06/02/2024 18:40 Esmeralda % 24.1 % (High)?? 06/02/2024 18:40 Eos % 13.3 % (High)?? 06/02/2024 18:40 Baso % 0.0 % ()?? 06/02/2024 18:40 Imm Gran 0.7 % ()?? 06/02/2024 18:40 Abs. Imm Gran 0.0 k/mm3 ()?? 06/02/2024 18:40 ?? CHEM GENERAL Sodium 121 mmol/L (Low)?? 06/02/2024 18:40 Potassium 5.0 mmol/L ()?? 06/02/2024 18:40 Chloride 89 mmol/L (Low)?? 06/02/2024 18:40 Bicarbonate Level 20 mmol/L (Low)?? 06/02/2024 18:40 Anion Gap 12 mmol/L ()?? 06/02/2024 18:40 Glucose Level 106 mg/dL (High)?? 06/02/2024 18:40 BUN 31 mg/dL (High)?? 06/02/2024 18:40 Creatinine-Blood 1.27 mg/dL (High)?? 06/02/2024 18:40 Estimated GFR Creatinine 63 ML/MIN/1.73 M2 ()?? 06/02/2024 18:40 Osmolality 259 mOs/kg (Low)?? 06/02/2024 20:57 Calcium 9.1 mg/dL ()?? 06/02/2024 18:40 Protein, Total 7.0 Gm/dL ()?? 06/02/2024 20:57 Albumin 4.5 Gm/dL ()?? 06/02/2024 20:57 AG Ratio 1.6 ()?? 06/02/2024 18:40 Alkaline Phosphatase 90 units/L ()?? 06/02/2024 20:57 AST (SGOT) 20 units/L ()?? 06/02/2024 20:57 ALT (SGPT) 28 units/L ()?? 06/02/2024 20:57 Bilirubin, Total 0.7 mg/dL ()?? 06/02/2024 20:57 Bilirubin, Direct 0.2 mg/dL ()?? 06/02/2024 20:57 Bilirubin, Indirect 0.5 mg/dL ()?? 06/02/2024 20:57 ?? COAG INR 1.1 ()?? 06/02/2024 20:57 Protime (PT) 11.7 seconds (High)?? 06/02/2024 20:57 APTT 27.1 seconds ()?? 06/02/2024 20:57 ?? URINE OTHER Creatinine, Urine Random 152.0 mg/dL ()?? 06/02/2024 20:13 Sodium, Urine Random 27 mmol/L ()?? 06/02/2024 20:13 Est Creatinine Clearance 58.19 mL/min ()?? 06/02/2024 19:26 ? * Vance Oropeza MD: PERFORM Event Display: Admission Note Authored Date: ??Attending Attestation: I have seen and evaluated this patient.?? I have discussed the case and its management with the resident and agree with the findings and aamir documented in the resident's note.?? I?? will continue to provide care to this patient till 7 AMof the admitting date. ? 64-year-old male with a past medical history of hepatitis C, alcohol use, post liver transplant, ontacrolimus, CKD, myelodysplasia on weekly erythropoietin, transfusion dependent came with a complaint of abnormal lab workup. On lab workup patient is found to have hyponatremia, low hemoglobin.?? He refused for blood transfusion.?? He agreed to have blood transfusion in the morning time if repeat hemoglobin should be less than 7.?? Denied any GI bleed.?? Unlikely hemolytic anemia. ?? Hyponatremia is most likely hypovolemic hypoosmotic hyponatremia.?? Will continue with gentle hydration.?? Will follow the electrolytes closely to avoid rapid correction.?? Will continue the tacrolimus because of history of liver transplant.?? If hyponatremia will get worse then will get a nephrology consultation.?? EKG study * Event Display: ECG 12-Lead Authored Date: Please click on pdf link to open report * Event Display: ECG 12-Lead Authored Date: Ventricular Rate: 62 BPM Atrial Rate: 62 BPM P-R Interval: 178 ms QRS Duration: 82 ms Q-T Interval: 414 ms QTC Calculation(Bazett): 420 ms P [place]: -4 degrees R [place]: -5 degrees T [place]: 14 degrees Normal sinus rhythm Normal ECG When compared with ECG of 25-May-2024 14:15, No significant change was found Confirmed by SALVADOR BAR ([id number]) on 06/03/2024 9:28:48 AM [place]: SALVADOR BAR Cardiology * Event Display: Cardiac Rhythm Strips Authored Date: * Event Display: Cardiac Rhythm Strips Authored Date: * Event Display: Cardiac Rhythm Strips Authored Date: Hospital Progress note * Le Meyer RN: PERFORM, SIGN, VERIFY Event Display: Progress Note Hospital Authored Date: Patient: FERNANDEZ JOE Age: 64 years Sex: Male : 1960 Associated Diagnoses: None Author: Le Meyer RN Findings Problem Related to Alteration in Fluid Electrolyte : Alteration in Fluid Electrolyte Func/new 06/11/2024 11:00 EST Alteration Fluid Electrolytes Related to Anemia, Electrolyte Imbalance Goals & Outcomes, Fluid/Electrolyte Vital signs, electrolytes & glucose levels will stabilize, Pt will maintain adequate GI/ function appropriate for pt, Pt will maintain skin turgor, Pt will resume/maintain adequate cardiac output, Pt will resume/maintain adequate hemodynamic status, Pt will state importance of adhering to medication regime, Pt's weight will normalize, Pt's fluid &RBC volume will normalize & be maintained, Pt's functional abilities will normalize, be maintained Interventions, Fluid Electrolyte Monitor effects of dialysis/ultrafiltration, monitor cardiac status, monitor dietary intake, monitor for s/s of anemia: weakness, fatigue,, monitor for s/s of hyper/hypokalemia, monitor for s/s of hypo or hyperglycemia, monitor GI/ status, monitor hydration status, monitor mucous membranes, Monitor & document daily weight, Teach Pt/caregiver re: fluid restriction, Teach Pt/caregiver importance of accurate I & O monitoring BH Goals/Interventions,Fluid Electrolyte Yes Fluid Electrolyte, Problem Start 06/03/2024 10:00 Reviewed plan with, Fluid Electrolyte Patient Patient Progression, Fluid Electrolyte Pt progressing according to plan . Evaluation Patient A&O x4. NSR on tele. Denies chest pain, palpitations, and SOB. On room air. independently ambulating in room & OOB to bathroom. Call banks in reach, bed in locked lowest position. See CIS flowsheet for full assessment. plan for discharge today. medications given per JUL.. * Marielos PEREZ, Iftikhar: MODIFY, PERFORM Event Display: Progress Note Hospital Authored Date: [id number] Patient: ??FERNANDEZ JOE ? Age:??64 Years?Sex:??Male?:??1960?? Subjective pt seen and examined at bed side?vitals, labs, imaging studies reviewed. ?? Review of Systems Constitutional:??No fever, chills Cardiovascular:?No chest pain,pressure or discomfort. No palpitations Respiratory:??No shortness of breath, cough or sputum production. Gastrointestinal:??No nausea, vomiting or diarrhea. No abdomen pain Genitourinary:??No dysuria, hematuria Objective Vital Signs?? Temperature: 98.6 DegF (06/11/24 04:14:00) Temperature Route: Oral (06/11/24 04:14:00) Pulse Rate: 65 bpm (06/11/24 04:14:00) Respiratory Rate: 18 br/min (06/11/24 04:14:00) Systolic Blood Pressure: 123 mm Hg (06/11/24 04:14:00) Diastolic Blood Pressure: 76 mm Hg (06/11/24 04:14:00) Blood pressure sites: Arm, right (06/11/24 04:14:00) Mean Arterial Pressure: 92 mm Hg (06/11/24 04:14:00) Pulse Pressure: 47 mm Hg (06/11/24 04:14:00) Oxygen Saturation: 100 % (06/11/24 04:14:00) Mode of Delivery (Oxygen): Room air (06/11/24 04:14:00) Early Warning Score: 3 (06/11/24 05:56:52) ? Intake/Output? 06/02 22:12 06/11 07:00 06/10 07:00 06/09 07:00 06/08 07:00 ?? 06/11 06:54 06/11 06:54 06/11 06:59 06/10 06:59 06/09 06:59 Intake ? 8162.5 ?0 ? 1080 ? 1106 ?920 Output ? 5575 ?0 ?0 ?600 ?0 Net Total ? 2587.5 ?0 ? 1080 ?506 ?920 ? Urine Count ? 17 ?0 ?4 ?2 ? 11 Emesis Count ?1 ?0 ?0 ?0 ?0 ? Physical Exam ?General :??No apparent distress?Respiratory??: Bilateral air entry fair. No wheeze or crackles. ?Cardiac??: Regular rate and rhythm, S1S2+ ?Abdomen/GI??: soft, non-tender, non-distended, bowel sounds present. ?Neurologic??: Alert & oriented x 3 ?? Extremities??: No edema.? _ Inpatient Medications Medications (14) Active SCHEDULED: (6) Magnesium Oxide 400 mg Tablet (magnesium oxide [...] oral capsule) ??4 mg, By Mouth, Daily at bedtime Tacrolimus 1 mg Capsule (tacrolimus 1 mg oral capsule) ??4 mg, By Mouth, Daily before breakfast Ursodiol 300 mg Capsule (ursodiol 300 mg [...] mg, Chew, 3 times a day ? Results Recent Labs BLOOD BANK RBC Unit ID [id number] ()?? 06/09/2024 08:01 RBC Available PT ()?? 06/09/2024 08:01 ?? BLOOD COUNT & DIFF WBC 3.7 k/mm3 (Low)?? 06/11/2024 05:18 RBC 2.79 m/mm3 (Low)?? 06/11/2024 05:18 Hgb 8.4 Gm/dL (Low)?? 06/11/2024 05:18 Hct 24.5 % (Low)?? 06/11/2024 05:18 MCV 87.8 femtoliters ()?? 06/11/2024 05:18 MCH 30.1 pg ()?? 06/11/2024 05:18 MCHC 34.3 Gm/dL ()?? 06/11/2024 05:18 Platelet Count 217 k/mm3 ()?? 06/11/2024 05:18 RDW-SD 60.2 femtoliters (High)?? 06/11/2024 05:18 MPV 9.5 femtoliters ()?? 06/11/2024 05:18 Nucleated RBC (Automated) 0.0 #/100 WBC'S ()?? 06/11/2024 05:18 Abs. NRBC 0.0 k/mm3 ()?? 06/11/2024 05:18 ?? CHEM GENERAL Sodium 136 mmol/L ()?? 06/11/2024 05:18 Potassium 4.9 mmol/L ()?? 06/11/2024 05:18 Chloride 104 mmol/L ()?? 06/11/2024 05:18 Bicarbonate Level 19 mmol/L (Low)?? 06/11/2024 05:18 Anion Gap 13 mmol/L ()?? 06/11/2024 05:18 Glucose Level 106 mg/dL (High)?? 06/11/2024 05:18 BUN 42 mg/dL (High)?? 06/11/2024 05:18 Creatinine-Blood 1.56 mg/dL (High)?? 06/11/2024 05:18 Estimated GFR Creatinine 50 ML/MIN/1.73 M2 ()?? 06/11/2024 05:18 Calcium 10.1 mg/dL ()?? 06/11/2024 05:18 ?? TOXICOLOGY/TDM Tacrolimus Level 7.7 ng/mL ()?? 06/10/2024 05:13 ?? URINE OTHER Est Creatinine Clearance 47.38 mL/min ()?? 06/11/2024 05:56 ? Blood Glucose Trend Glucose Level:??106 mg/dL??High (06/11/24 05:18:00) ? Assessment/Plan Fernandez Joe is 64-year-old male??with a past medical history of??cirrhosis secondary to hepatitis C and alcohol use disorder status post liver transplant (July 2023, [facility]) currently on tacrolimus, CKD, myelodysplastic syndrome receiving weekly erythropoietin, transfusion dependent who??presented??on 06/02 for abnormal labs (low sodium).??Pt was admitted for hyponatremia and anemia. Nephrology consulted for hyponatremia.? 1. Hypoosmolar Hyponatremia Na 137 today, vargas of 120 SOsm??259 (06/02), Pearl 107, UOsm 456 (06/03) TSH 1.84 (06/02), Cortisol level 9.5 (06/04) Of note, pt previously prescribed Urea 15 gm outpatient Likely SIADH, as supported by urine labs.?? S/p hypertonic saline on 06/03 and 06/04 ?? 2. Liver Transplant History of??cirrhosis secondary to hepatitis C and alcohol use disorder status post liver transplant in??July 2023 at [facility] Chronically pt is taking tacrolimus 4 mg BID Discussed with transplant team ([phone]) who stated goal tacrolimus level of 5-7.??If tacrolimus needs to be adjusted, please discuss with transplant team prior to adjusting. ?? Tacrolimus level 7.7 today 06/09: Discussed with transplant team, OK to continue tacrolimus 4 mg BID at this time. Recommend ifCr worsens to call back regarding dose adjustment if need be.? 3. Anemia Presented with Hgb 6.4 - s/p pRBC transfusion (last one 06/09) History of??myelodysplastic syndrome receiving weekly erythropoietin (per pt last dose was ) S/p EPO x1 dose on 06/09 ?? 4. JAVIER BL Cr ~1.1 mg Cr peaked at 1.90 mg/dL, Cr 1.5 mg/dL today (improving) Likely hemodynamic JAVIER 2/2 BP changes (per pt BP has been going up and down like a roller coaster, change in SBP from 150s to 90s), anemia requiring blood transfusion. [place] UA not suggestive of GN, AIN.? Recommendations:?? - Daily renal panel - Monitor I/Os - Continue tacrolimus??3 mg and 4??mg BID - Daily tacrolimus level (to be drawn BEFORE AM dose) -??Monitor Hgb, transfuse if Hgb < 7?? - if discharged, will fu in office in 3-4 weeks to ensure resolution of cr to baseline ?? Thank you for the courtesy of this consult, RTANE ??will continue monitoring the patient along withyou please do not hesitate to call us with any further questions ?? Iftikhar Arceo M.D. [facility] [place] [id number] [facility], [address], [facility]? * Saira Doyle RN: PERFORM, SIGN, VERIFY Event Display: Progress Note Hospital Authored Date: Patient: FERNANDEZ JOE Age: 64 years Sex: Male : 1960 Associated Diagnoses: None Author: Saira Doyle RN Findings Problem Related to Alteration in Fluid Electrolyte : Alteration in Fluid Electrolyte Func/new 06/10/2024 23:40 EST Alteration Fluid Electrolytes Related to Anemia, Electrolyte Imbalance Goals & Outcomes, Fluid/Electrolyte Vital signs, electrolytes & glucose levels will stabilize, Pt will maintain adequate GI/ function appropriate for pt, Pt will maintain skin turgor, Pt will resume/maintain adequate cardiac output, Pt will resume/maintain adequate hemodynamic status, Pt will state importance of adhering to medication regime, Pt's weight will normalize, Pt's fluid &RBC volume will normalize & be maintained, Pt's functional abilities will normalize, be maintained Interventions, Fluid Electrolyte monitor for s/s of anemia: weakness, fatigue,, monitor GI/ status, monitor hydration status, monitor mucous membranes, monitor peripheral pulses, monitor skin turgor, temperature & capillary refill, Encourage oral intake/fluids as ordered, Maintain strict intake & output, Monitor & document daily weight, Teach Pt/caregiver re: fluid restriction, Teach Pt/caregiver importance of accurate I & O monitoring BH Goals/Interventions,Fluid Electrolyte Yes Fluid Electrolyte, Problem Start 06/03/2024 10:00 Reviewed plan with, Fluid Electrolyte Patient Patient Progression, Fluid Electrolyte Pt progressing according to plan . Nursing Data Vital Signs : VITAL SIGNS SECTION 06/10/2024 20:20 EST Temperature 98.4 DegF Temperature Route Oral Pulse Rate 64 bpm Respiratory Rate 18 br/min Systolic Blood Pressure 128 mm Hg Diastolic Blood Pressure 81 mm Hg Blood pressure sites Arm, right Mean Arterial Pressure 97 mm Hg Pulse Pressure 47 mm Hg Oxygen Saturation 100 % Mode of Delivery (Oxygen) Room air . Evaluation . Patient is A&O x 4, Q2 neuro checks. Denies SOB or trouble breathing, on room air and lungs clear. Denies chest pain and palpitations. Heart rhythm normal sinus/vianca 50-60s. Independent in room.No complaints of pain at this time. Please see biophysical/CIS for further details. Bed in lowest locked position, call banks within reach. . Note * Le Meyer RN: PERFORM Event Display: Discharge/Transfer Note Hospital Authored Date: [id number] Nursing Discharge Note Entered On: 06/11/2024 13:35 EST Performed On: 06/11/2024 13:35 EST by Le Meyer RN Nursing Discharge Note 2 Discharge Time : 06/11/2024 13:34 EST Discharge Level of Care at Discharge : Home/Half-Way/Foster Care Patient Left Unit Via : Ambulatory Patient Accompanied Off Unit with : Responsible adult DC Instructions Provided & Signed by Pt : Yes Patient Understands D/C Instructions : Yes Patient Instructions Discharge Signed : Yes Discharge Comments : iv removevd, script from doctor given and tele remvoed. Did Pt have Specialty Bed or Wound Vac : No Le Meyer RN - 06/11/2024 13:35 EST * Alexandre Nunez MD: MODIFY, PERFORM Event Display: Discharge/Transfer Note Hospital Authored Date: [id number] Patient: ??FERNANDEZ JOE ? Age:??64 Years?Sex:??Male?:??1960?? Patient Information Discharge Location: Primary Care Physician: Maxine Victoria MD Admit Date/Time: 06/02/2024 22:12 Discharge Disposition Discharge Disposition: Home: No Services Discharge Diagnosis General medical ([id number]) Acute on chronic anemia (D64.9) Status post liver transplant (Z94.4) Hepatitis C (B19.20) Myelodysplastic syndrome (D46.9) Leukopenia (D72.819) History of alcohol abuse (F10.11) GERD without esophagitis (K21.9) Hyponatremia (E87.1) _ Discharge Medications Magnesium Oxide (magnesium oxide 400 mg oral capsule)?1?capsule?400?Milligram?By Mouth?Daily?2 times a day Miscellaneous Rx (BMP in 5 days)?See Instructions?Pls send the results toTenzin OquendoieDiagnosis: Acute kidney injury, anemia Miscellaneous Rx (CBC in 5 days)?See Instructions?Pls send the results to Dr Julien Goodman / Harry Allison: Acute kidney injury, anemia Pantoprazole (pantoprazole 40 mg oral delayed release tablet)?1?tab(s)?40?Milligram?By Mouth?Daily Tacrolimus (tacrolimus 1 mg oral capsule, extended release)?See Instructions?Take 3 capsules by mouth every morning before breakfast, and 4 capsules by mouth at bedtime Ursodiol (ursodiol 300 mg oral capsule)?300?Milligram?1?capsule?By Mouth?2 times a day ? Doses Changed Tacrolimus dose.?? Change from 4 mg twice daily, to 3 mg every morning and 4 mg at bedtime Allergies Allergies ?(Active and Proposed Allergies Only) NKA? (Severity: Unknown severity, Onset: Unknown) ? Hospital Course ??64 yr old male with significant PMH of??cirrhosis s/p liver transplant??presented to the ED??withasymptomatic hyponatremia of unknown duration and acute on chronic anemia ?? Hyponatremia (E87.1):??Severe??Hypoosmolar Hyponatremia He is??euvolemic on examination.?? Tacrolimus can cause hyponatremia via various pathways,??along with??hyperkalemia.?? There is no pul??edema/hypoxia suggestive of acute CHF, last echo 2023 showed EF 60-65%. Appreciate nephrology's help Was kept on??urea with improvement,?? then on sodium??tablets. ??Urea discontinued on 06/05. ??Sodium chloride discontinued on 06/06 Serum sodium of??136 Continue to monitor serum sodium daily??from now onwards Appreciate nephrology's help,??checking urine electrolytes. Tacrolimus level this morning at??5.1, goal range between 5-7, continue to monitor tacrolimus leveldaily. As per transplant team??target level for tacrolimus 5-7. ??To be drawn 12 hours after the last dose.?Advised??not to adjust the dose prior to talking to the transplant??team.?? Renal team is coordinating??with the??transplant team The transplant team, Maira G can be reached at??[phone].?Tacrolimus dose??10.6 on day of discharge, discussed with transplant team. ??Recommended??tacrolimus 3 mg??in the morning, and 4 mg at bedtime.?? And outpatient follow-up. ??They will set up repeat??labs??outpatient. ?? Status post liver transplant (Z94.4) Associated with??Hepatitis C (B19.20),??History of alcohol abuse (F10.11) Liver transplant in July 2023??at [place], [facility].??Care is in [facility] at??[place]??with??regular visits to [place]??DC. Tacrolimus dose recently changes to 4mg BID. Here was??on tacrolimus for twice daily,??dose was changed to 3 mg in morning and 4 mg at dischargeper transplant team as above. Continue Ursodiol Transplant team, last number listed [phone] Ensure follow up with Transplant Team ?? Acute kidney injury Baseline serum creatinine of around 1.12, serum creatinine improving at 1.58 Renally dose medications, avoid nephrotoxins, daily serum creatinine monitoring Nephrology following, appreciate.?? Seen in follow-up today and cleared for discharge. ?? Fever Unknown source No signs of infection identified currently Dopplers negative for DVT Blood culture negative. Chest x-ray??benign. Procalcitonin, ESR, CRP elevated Since no active signs of infection, antibiotics discontinued on??06/10/2024. ??Patient continues to remain afebrile.?? No concern for infection at this time. ?? Acute on chronic anemia (D64.9):??Has history of chronic normocytic anemia, baseline hemoglobin typically around 7???8 per patient. Multifactorial in etiology, has history of myelodysplastic syndrome and likely also component of anemia of chronic disease in the setting of his CKD. Required multiple blood transfusions this admission.?? Last posttransfusion 06/09/2024. ??Hemoglobintoday 7.7. ??Recheck in a.m. Monitor Epoetin penelope given by nephrology on 06/09/2024 ?? Elevated LFTs No abdominal pain or tenderness LFts improving Continue to monitor/trend LFTs daily ?? Myelodysplastic syndrome (D46.9) Associated with??Leukopenia (D72.819) Known MDS.?? Follow up outpatient? GERD without esophagitis (K21.9):??Continue PPI ?? VTE Prophylaxis:??chemical prophylaxis contraindicated, Pneumoboots? Code Status:??FULL?? Objective Vital Signs?? Temperature: 98.1 DegF (06/11/24 09:52:00) Temperature Route: Oral (06/11/24 09:52:00) Pulse Rate: 78 bpm (06/11/24 09:52:00) Respiratory Rate: 18 br/min (06/11/24 09:52:00) Systolic Blood Pressure: 129 mm Hg (06/11/24 09:52:00) Diastolic Blood Pressure: 69 mm Hg (06/11/24 09:52:00) Blood pressure sites: Arm, right (06/11/24 09:52:00) Mean Arterial Pressure: 89 mm Hg (06/11/24 09:52:00) Pulse Pressure: 60 mm Hg (06/11/24 09:52:00) Oxygen Saturation: 98 % (06/11/24 09:52:00) Mode of Delivery (Oxygen): Room air (06/11/24 09:52:00) Early Warning Score: 3 (06/11/24 09:54:13) ? . Physical Exam Constitutional:??Alert, in no acute distress. Head EENT: Extraocular muscle movement intact.??Moist mucous membranes.?? Neck: Supple. No JVD. Respiratory: Clear to auscultation. No wheezing or crackles. No use of accessory muscles. Cardiovascular: S1S2 regular. No murmurs, rubs or gallops. Gastrointestinal: Abdomen soft, non-tender, non-distended. Normal bowel sounds. Genitourinary: No CVA tenderness. Extremities: No lower extremity pitting??edema. No cyanosis or clubbing. Neurologic: AAOx3, Speech normal. No focal neurological deficits. Skin: No rash. Psychiatric: Normal mood and affect Pending Results Add On Lab Order ordered on 06/02/2024 Add On Lab Order ordered on 06/02/2024 Add On Lab Order ordered on 06/03/2024 Add On Lab Order ordered on 06/03/2024 Add On Lab Order ordered on 06/08/2024 Tacrolimus Level ordered on 06/07/2024 Transfuse RBCs ordered on 06/03/2024 Transfuse RBCs ordered on 06/04/2024 Transfuse RBCs ordered on 06/06/2024 Transfuse RBCs ordered on 06/09/2024 Follow-Up Appointments Added Follow Up ?Time Frame ?Comments Julien PEREZ , Maxine Patient Instructions Follow-up with??your PCP in 1 to 2 weeks. ??Please call for appointment Follow-up with[facility].?? Contact number:?? Blood work in??5 days. ??Lab slip provided Follow-up with??outpatient hematology. Follow-up with??transplant center??at [place]. Dose of tacrolimus has been changed per recommendations of??your transplant??team.?? Take??3 mg??before??breakfast in the morning, and 4 mg??at bedtime, instead of 4 mg twice daily. Home Health Face to Face ^HomeHealthFTF Results Discharge Labs BACTERIOLOGY Blood Culture Results Preliminary report ()?? 06/08/2024 07:31 Blood Culture Specimen Source BLOOD ()?? 06/08/2024 07:31 Blood Culture Isolate 1 Comment ()?? 06/08/2024 07:31 Blood Cult 2 Results Preliminary report ()?? 06/08/2024 07:31 Blood Culture 2 Specimen Source BLOOD ()?? 06/08/2024 07:31 Blood Culture 2 Isolate 1 Comment ()?? 06/08/2024 07:31 ?? BLOOD BANK Blood Type O Positive ()?? 06/06/2024 10:16 Antibody Screen Negative ()?? 06/06/2024 10:16 RBC Unit ID [id number] ()?? 06/09/2024 08:01 RBC Available PT ()?? 06/09/2024 08:01 ?? BLOOD COUNT & DIFF WBC 3.7 k/mm3 (Low)?? 06/11/2024 05:18 RBC 2.79 m/mm3 (Low)?? 06/11/2024 05:18 Hgb 8.4 Gm/dL (Low)?? 06/11/2024 05:18 Hct 24.5 % (Low)?? 06/11/2024 05:18 MCV 87.8 femtoliters ()?? 06/11/2024 05:18 MCH 30.1 pg ()?? 06/11/2024 05:18 MCHC 34.3 Gm/dL ()?? 06/11/2024 05:18 Platelet Count 217 k/mm3 ()?? 06/11/2024 05:18 RDW-SD 60.2 femtoliters (High)?? 06/11/2024 05:18 MPV 9.5 femtoliters ()?? 06/11/2024 05:18 Nucleated RBC (Automated) 0.0 #/100 WBC'S ()?? 06/11/2024 05:18 Abs. NRBC 0.0 k/mm3 ()?? 06/11/2024 05:18 Abs. Neut 3.0 k/mm3 ()?? 06/09/2024 04:47 Abs. Lymph 0.5 k/mm3 (Low)?? 06/09/2024 04:47 Abs. Esmeralda 0.9 k/mm3 ()?? 06/09/2024 04:47 Abs. Eo 0.4 k/mm3 ()?? 06/09/2024 04:47 Abs. Baso 0.0 k/mm3 ()?? 06/09/2024 04:47 Neut % 60.8 % ()?? 06/09/2024 04:47 Lymph % 10.7 % (Low)?? 06/09/2024 04:47 Esmeralda % 18.4 % (High)?? 06/09/2024 04:47 Eos % 8.7 % (High)?? 06/09/2024 04:47 Baso % 0.2 % ()?? 06/09/2024 04:47 Imm Gran 1.2 % ()?? 06/09/2024 04:47 Abs. Imm Gran 0.1 k/mm3 ()?? 06/09/2024 04:47 ?? CHEM GENERAL Sodium 136 mmol/L ()?? 06/11/2024 05:18 Potassium 4.9 mmol/L ()?? 06/11/2024 05:18 Chloride 104 mmol/L ()?? 06/11/2024 05:18 Bicarbonate Level 19 mmol/L (Low)?? 06/11/2024 05:18 Anion Gap 13 mmol/L ()?? 06/11/2024 05:18 Glucose Level 106 mg/dL (High)?? 06/11/2024 05:18 BUN 42 mg/dL (High)?? 06/11/2024 05:18 Creatinine-Blood 1.56 mg/dL (High)?? 06/11/2024 05:18 Estimated GFR Creatinine 50 ML/MIN/1.73 M2 ()?? 06/11/2024 05:18 Osmolality 259 mOs/kg (Low)?? 06/02/2024 20:57 Calcium 10.1 mg/dL ()?? 06/11/2024 05:18 Magnesium 1.6 mg/dL ()?? 06/03/2024 07:33 Protein, Total 6.8 Gm/dL ()?? 06/09/2024 04:47 Albumin 3.8 Gm/dL ()?? 06/09/2024 04:47 AG Ratio 1.3 ()?? 06/09/2024 04:47 Alkaline Phosphatase 74 units/L ()?? 06/09/2024 04:47 AST (SGOT) 24 units/L ()?? 06/09/2024 04:47 ALT (SGPT) 70 units/L (High)?? 06/09/2024 04:47 Bilirubin, Total 1.0 mg/dL ()?? 06/09/2024 04:47 Bilirubin, Direct 0.2 mg/dL ()?? 06/02/2024 20:57 Bilirubin, Indirect 0.5 mg/dL ()?? 06/02/2024 20:57 Uric Acid 5.2 mg/dL ()?? 06/03/2024 14:55 C-Reactive Protein 9.4 mg/dL (High)?? 06/08/2024 06:01 ? COAG INR 1.1 ()?? 06/02/2024 20:57 Protime (PT) 11.7 seconds (High)?? 06/02/2024 20:57 APTT 27.1 seconds ()?? 06/02/2024 20:57 ? ENDOCRINE/TUMOR MARKER TSH 1.84 uIU/mL ()?? 06/02/2024 20:57 Cortisol Level 9.5 ??g/dL ()?? 06/03/2024 07:33 ?? HEME OTHER Sed Rate 29 mm/hr (High)?? 06/08/2024 06:00 ? MISC. CHEMISTRY Hold Green Top SPECIMEN DISCARDED AFTER 1 WEEK ()?? 06/06/2024 11:52 Procalcitonin 1.57 ng/mL ()?? 06/08/2024 06:01 Hold Green Top 2 SPECIMEN DISCARDED AFTER 1 WEEK ()?? 06/05/2024 04:55 ? TOXICOLOGY/TDM Tacrolimus Level 10.6 ng/mL ()?? 06/11/2024 05:18 ? UA/URINALYSIS Appear/Color, Urine YELLOW ()?? 06/08/2024 16:24 Clarity CLEAR ()?? 06/08/2024 16:24 Specific [place], Urine 1.019 ()?? 06/08/2024 16:24 pH, Urine 5.5 ()?? 06/08/2024 16:24 Albumin, Urine TRACE ()?? 06/08/2024 16:24 Glucose, Urine NEGATIVE ()?? 06/08/2024 16:24 Ketones, Urine NEGATIVE ()?? 06/08/2024 16:24 Bilirubin, Urine NEGATIVE ()?? 06/08/2024 16:24 Hemoglobin, Urine NEGATIVE ()?? 06/08/2024 16:24 Nitrite, Urine NEGATIVE ()?? 06/08/2024 16:24 Leukocyte, Urine NEGATIVE ()?? 06/08/2024 16:24 Urobilinogen NORMAL mg/dL ()?? 06/08/2024 16:24 WBC's, Urine <1 /HPF ()?? 06/08/2024 16:24 RBC's, Urine 2 /HPF ()?? 06/08/2024 16:24 Bacteria SLIGHT HPF (Abnormal)?? 06/08/2024 16:24 Mucus SLIGHT /LPF ()?? 06/08/2024 16:24 Hold Urine Culture Testing available 48 hours from time of collection. ()?? 06/06/2024 16:20 Hold Urine Testing Available 24 hours from Time of Collection ()?? 06/06/2024 16:20 Culture Indication CULTURE NOT INDICATED ()?? 06/08/2024 16:24 ? URINE OTHER Creatinine, Urine Random 145.0 mg/dL ()?? 06/06/2024 16:20 Sodium, Urine Random 23 mmol/L ()?? 06/06/2024 16:20 Potassium, Urine Random 26.5 mmol/L ()?? 06/03/2024 06:22 Chloride, Urine Random <20 mmol/L ()?? 06/06/2024 16:20 Osmolality, Urine Random 617 mOsm/kg ()?? 06/06/2024 16:20 Protein, Total Urine Random 13 mg/dL ()?? 06/06/2024 16:20 TP/Cr Ratio 0.09 ()?? 06/06/2024 16:20 Uric Acid, Urine Random 22.3 mg/dL ()?? 06/03/2024 06:22 Creatinine, Urine 145.0 mg/dL ()?? 06/06/2024 16:20 Malb/Creat Ratio Unable to calculate mg/Gm ()?? 06/08/2024 16:24 Urine Creat For Micro Alb 138.1 mg/dL ()?? 06/08/2024 16:24 Micro-Albumin <12.0 mg/L ()?? 06/08/2024 16:24 Est Creatinine Clearance 47.38 mL/min ()?? 06/11/2024 05:56 ? Microbiology ?? Blood Culture?? Completed?? Source: Blood Body Site: ?? Collected Dt/Tm: 06/08/2024 07:31 Last Updated Dt/Tm: 06/09/2024 05:13 ?? Blood Culture #2?? Completed?? Source: Blood Body Site: ?? Collected Dt/Tm: 06/08/2024 07:31 Last Updated Dt/Tm: 06/09/2024 05:13 ?? Blood Culture Result?? Completed?? Source: Blood Body Site: ?? Collected Dt/Tm: 06/08/2024 07:31 Last Updated Dt/Tm: 06/09/2024 05:13 ?? Blood Culture 2 Results?? Completed?? Source: Blood Body Site: ?? Collected Dt/Tm: 06/08/2024 07:31 Last Updated Dt/Tm: 06/09/2024 05:13 ? >30_ minutes spent on discharge * Mitch GASTON, Le: PERFORM Event Display: Patient Education/Instruction Authored Date: [id number] Inpatient Adult Discharge Instructions. [address] [address] Name: FERNANDEZ JOE : 1960?? Visit: 06/02/2024 22:12?? Current Date: 06/11/2024 12:20 ?? Account: [id number]?? Inpatient Adult Discharge Instructions We would like [...] and their families. Surveys are administered by [employer] ?? If further treatment with your primary care physician or another doctor is recommended, it is important for you to keep the appointment. Call your primary care physician or return to the Emergency Department immediately if your condition worsens, fails to improve, or new symptoms develop. If you need to find a doctor, you can call [facility] Link for a referral at [phone] or toll free at [phone]) or log in to [email or web address].. ?? [facility], in keeping with [facility] guidance, no longer requires face masks for [...] a health care zeinab of your choosing. [employer] is a website that allows you to securely view your medical information including your hospital discharge summary, office visit summaries, medications and follow-up visits. You can also request appointments, renew medications, and request access to your medical information using a health care zeinab of your choosing, or just ask a question. You can enroll at [email or web address] or register during your next office visit. You have been discharged from [facility], Patient Care Unit: M5??. If you have any questions regarding these instructions, including results of studies pending, afteryou leave, please call us and we will be happy to assist you 02/12. [facility] Your Care Team Attending Physician Alexandre Nunez MD?? Consulting Providers Alexandre Nunez MD?? Discharging Providers Alexandre Nunez MD Reason for Your Visit hyponatremia, anemia?? Your Diagnosis Acute on chronic anemia General medical GERD without esophagitis Hepatitis C History of alcohol abuse Hyponatremia Leukopenia Myelodysplastic syndrome Status post liver transplant Tests Performed Below is a partial list of the tests performed during your hospitalization. You may have had other tests and procedures not included in this list. Please discuss all test results with your provider. Basic Metabolic Panel Blood Culture Blood Culture #2 Blood Culture 2 Results Blood Culture Result C-REACTIVE PROTEIN CBC CBC w/ Differential Chloride Urine Comprehensive Metabolic Panel CORTISOL Creatinine Urine H + H Hepatic Function Panel HOLD GREEN TOP X2 HOLD GREEN TUBE HOLD URINE CULTURE HOLD URINE, HEMATOLOGY INR Lytes Magnesium Level Osmolality Osmolality Urine Potassium Urine PROCALCITONIN Protein/Creatinine Ratio Urine PTT SEDIMENTATION RATE,AUTOMATED Sodium Level Sodium Urine TACROLIMUS TSH Type and Screen UA W/Reflex Culture & Renal URIC ACID URIC ACID, URINE MG/DL Urinalysis Complete URINARY MICROALBUMIN Urine Creatinine Urine Osmolality Urine Sodium CXR Portable Doppler Ext Lower Venous Bilat (US) Add On Lab Order (Lab Add On Order)?? Basic Metabolic Panel?? Blood Culture?? Blood Culture #2?? Blood Culture 2 Results?? Blood Culture Result?? C Reactive Protein (C-REACTIVE PROTEIN)?? CBC?? CBC w/ Differential?? Chloride Urine?? Complete Urinalysis (Urinalysis Complete)?? Comprehensive Metabolic Panel?? Cortisol Level (CORTISOL)?? Creatinine Urine?? Electrolytes (Lytes)?? Hepatic Function Panel?? Hgb + Hct (H + H)?? Hold Green Top Tube (HOLD GREEN TUBE)?? Hold Green Top Tube x2 (HOLD GREEN TOP X2)?? Hold Urine (HOLD URINE, HEMATOLOGY)?? Hold Urine Culture?? INR?? Magnesium Level?? Microalbumin Urine (URINARY MICROALBUMIN)?? Osmolality?? Osmolality Urine?? PTT?? Potassium Urine?? Procalcitonin Level (PROCALCITONIN)?? Protein/Creatinine Ratio Urine?? Sedimentation Rate (SEDIMENTATION RATE,AUTOMATED)?? Sodium Level?? Sodium Urine?? TSH?? Tacrolimus Level (TACROLIMUS)?? Transfuse RBCs?? Type and Screen?? UA W/Reflex Culture & Renal?? US Doppler Ext Lower Venous Bilat (Doppler Ext Lower Venous Bilat (US))?? Uric Acid?? Uric Acid Urine (URIC ACID, URINE MG/DL)?? Chest Portable (CXR Portable)?? Primary Care Provider Maxine Victoria MD? Advance Directive Health Care Proxy on File Yes - Health Care Proxy Discharge Vitals Temperature: 98.1 DegF Height: 173.5 cm Pulse Rate: 78 bpm Weight: 77.2 kg Respiratory Rate: 18 br/min Body Mass Index:??25.65 kg/m2??High Systolic Blood Pressure: 129 mm Hg Body surface area: 1.93 Diastolic Blood Pressure: 69 mm Hg ?? Oxygen Saturation: 98 % ?? Studies Pending All studies ordered during this hospital stay have been completed unless listed below. Please discuss all pending results with your provider listed above in these instructions. ?? Add On Lab Order (Lab Add On Order)?? Tacrolimus Level?? Transfuse RBCs?? What to do next Instructions From Your Doctor Follow-up with??your PCP in 1 to 2 weeks. ??Please call for appointment Follow-up with[facility].?? Contact number:?? Blood work in??5 days. ??Lab slip provided Follow-up with??outpatient hematology. Follow-up with??transplant center??at [place]. Dose of tacrolimus has been changed per recommendations of??your transplant??team.?? Take??3 mg??before??breakfast in the morning, and 4 mg??at bedtime, instead of 4 mg twice daily. ?? Orders? 06/11/24 11:50:00 EST?? You Need to Schedule the Following Appointments Follow Up with??Maxine Victoria MD Where: [address] [place] [id number]- Discharge Medications FERNANDEZ JOE :1960 Visit Date:06/02/2024 Medications: Please continue your medications until treatment is completed or stopped by your provider. Medications not listed below should be discontinued. Discuss any questions related to medications with your provider. What How Much When Instructions Next Dose Changed Miscellaneous Rx (BMP in 5 days) See instructions Pls send the results toMaxine Oquendo ?? Diagnosis: Acute kidney injury, anemia ?? Printed Prescription Changed Miscellaneous Rx (CBC in 5 days) See instructions Pls send the results to Dr Julien Goodman / ??Davin Allison ?? Diag: Acute kidney injury, anemia ?? Printed Prescription Changed Tacrolimus (tacrolimus 1 mg oral capsule, extended release) See instructions Take 3 capsules by mouth every morning before breakfast, and 4 capsules by mouth at bedtime ?? tonight 06/11 Unchanged Magnesium Oxide (magnesium oxide 400 mg oral capsule) 1 capsule Oral Twice a day 06/12 Unchanged Pantoprazole (pantoprazole 40 mg oral delayed release tablet) 1 tab(s) Oral Daily 06/12 Unchanged Ursodiol (ursodiol 300 mg oral capsule) 1 capsule Oral Twice a day 2/1 ?? What How Much When Comments Stop Taking Urea (Urea Powder) 15 gram Oral Daily Prescription Given During Visit Miscellaneous Rx (CBC in 5 days) - , # 1 each, 0 Refills, Pls send the results to Dr Julien Goodman / Harry Allison: Acute kidney injury, anemia?? Miscellaneous Rx (BMP in 5 days) - , # 1 each, 0 Refills, Pls send the results toRosetta Oquendoiagnosis: Acute kidney injury, anemia?? Tacrolimus (tacrolimus 1 mg oral capsule, extended release) - , # 96 capsule, 0 Refills, Take 3 capsules by mouth every morning before breakfast, and 4 capsules by mouth at bedtime?? Laboratory Results Below is a partial list of the most recent Laboratory test results done prior to this discharge. You may have had other tests and procedures not included in this list. Please discuss all test resultswith your provider. Est Creatinine Clearance - 47.38 mL/min (06/11/2024) RBC Available - PT (06/09/2024) RBC Unit ID - [id number] (06/09/2024) Basic Metabolic Panel (06/11/2024) ???Sodium - 136 mmol/L???Potassium - 4.9 mmol/L???Chloride - 104 mmol/L???Bicarbonate Level - 19 mmol/L???Anion Gap - 13 mmol/L???Glucose Level - 106 mg/dL???BUN - 42 mg/dL???Creatinine-Blood - 1.56 mg/dL???Estimated GFR Creatinine - 50 ML/MIN/1.73 M2???Calcium - 10.1 mg/dL Blood Culture (06/08/2024) ???Blood Culture Results - Preliminary report???Blood Culture Specimen Source - BLOOD Blood Culture #2 (06/08/2024) ???Blood Cult 2 Results - Preliminary report???Blood Culture 2 Specimen Source - BLOOD Blood Culture 2 Results (06/08/2024) ???Blood Culture 2 Isolate 1 - Comment Blood Culture Result (06/08/2024) ???Blood Culture Isolate 1 - Comment C-REACTIVE PROTEIN (06/08/2024) ???C-Reactive Protein - 9.4 mg/dL CBC (06/11/2024) ???WBC - 3.7 k/mm3???RBC - 2.79 m/mm3???Hgb - 8.4 Gm/dL???Hct - 24.5 %???MCV - 87.8 femtoliters???MCH - 30.1 pg???MCHC - 34.3 Gm/dL???Platelet Count - 217 k/mm3???RDW-SD - 60.2 femtoliters???MPV - 9.5 femtoliters???Nucleated RBC (Automated) - 0.0 #/100 WBC'S???Abs. NRBC - 0.0 k/mm3 CBC w/ Differential (06/09/2024) ???WBC - 4.9 k/mm3???RBC - 2.18 m/mm3???Hgb - 6.6 Gm/dL???Hct - 19.4 %???MCV - 89.0 femtoliters???MCH - 30.3 pg???MCHC - 34.0 Gm/dL???Platelet Count - 169 k/mm3???RDW-SD - 64.3 femtoliters???MPV - 10.3 femtoliters???Nucleated RBC (Automated) - 0.0 #/100 WBC'S???Abs. NRBC - 0.0 k/mm3???Abs. Neut - 3.0 k/mm3???Abs. Lymph - 0.5 k/mm3???Abs. Esmeralda - 0.9 k/mm3???Abs. Eo - 0.4 k/mm3???Abs. Baso - 0.0 k/mm3???Neut % - 60.8 %???Lymph % - 10.7 %???Esmeralda % - 18.4 %???Eos % - 8.7 %???Baso % - 0.2 %???Imm Gran - 1.2 %???Abs. Imm Gran - 0.1 k/mm3 Chloride Urine (06/06/2024) ? ?Chloride, Urine Random - <20 mmol/L Comprehensive Metabolic Panel (06/09/2024) ???Sodium - 132 mmol/L???Potassium - 4.7 mmol/L???Chloride - 101 mmol/L???Bicarbonate Level - 17 mmol/L???Anion Gap - 14 mmol/L???Glucose Level - 108 mg/dL???BUN - 33 mg/dL???Creatinine-Blood - 1.57 mg/dL???Estimated GFR Creatinine - 49 ML/MIN/1.73 M2???Calcium - 9.5 mg/dL???Protein, Total - 6.8 Gm/ dL???Albumin - 3.8 Gm/dL???AG Ratio - 1.3???Alkaline Phosphatase - 74 units/L???AST (SGOT) - 24 units/L???ALT (SGPT) - 70 units/L???Bilirubin, Total - 1.0 mg/dL CORTISOL (06/03/2024) ???Cortisol Level - 9.5 ??g/dL Creatinine Urine (06/06/2024) ???Creatinine, Urine Random - 145.0 mg/dL H + H (06/09/2024) ???Hgb - 7.8 Gm/dL???Hct - 22.6 % Hepatic Function Panel (06/02/2024) ???Protein, Total - 7.0 Gm/dL???Albumin - 4.5 Gm/dL???Alkaline Phosphatase - 90 units/L???AST (SGOT) - 20 units/L???ALT (SGPT) - 28 units/L???Bilirubin, Total - 0.7 mg/dL???Bilirubin, Direct - 0.2 mg/dL???Bilirubin, Indirect - 0.5 mg/dL HOLD GREEN TOP X2 (06/05/2024) ???Hold Green Top - SPECIMEN DISCARDED AFTER 1 WEEK???Hold Green Top 2 - SPECIMEN DISCARDED AFTER 1WEEK HOLD GREEN TUBE (06/06/2024) ???Hold Green Top - SPECIMEN DISCARDED AFTER 1 WEEK HOLD URINE CULTURE (06/06/2024) ???Hold Urine Culture - Testing available 48 hours from time of collection. HOLD URINE, HEMATOLOGY (06/06/2024) ???Hold Urine - Testing Available 24 hours from Time of Collection INR (06/02/2024) ???INR - 1.1???Protime (PT) - 11.7 seconds Lytes (06/03/2024) ???Sodium - 120 mmol/L???Potassium - 5.1 mmol/L???Chloride - 90 mmol/L???Bicarbonate Level - 19 mmol/L???Anion Gap - 11 mmol/L Magnesium Level (06/03/2024) ???Magnesium - 1.6 mg/dL Osmolality (06/02/2024) ???Osmolality - 259 mOs/kg Osmolality Urine (06/06/2024) ???Osmolality, Urine Random - 617 mOsm/kg Potassium Urine (06/03/2024) ???Potassium, Urine Random - 26.5 mmol/L PROCALCITONIN (06/08/2024) ???Procalcitonin - 1.57 ng/mL Protein/Creatinine Ratio Urine (06/06/2024) ???Protein, Total Urine Random - 13 mg/dL???TP/Cr Ratio - 0.09???Creatinine, Urine - 145.0 mg/dL PTT (06/02/2024) ???APTT - 27.1 seconds SEDIMENTATION RATE,AUTOMATED (06/08/2024) ???Sed Rate - 29 mm/hr Sodium Level (06/06/2024) ???Sodium - 133 mmol/L Sodium Urine (06/06/2024) ???Sodium, Urine Random - 23 mmol/L TACROLIMUS (06/11/2024) ???Tacrolimus Level - 10.6 ng/mL TSH (06/02/2024) ???TSH - 1.84 uIU/mL Type and Screen (06/06/2024) ???Blood Type - O Positive???Antibody Screen - Negative UA W/Reflex Culture & Renal (06/08/2024) ???Appear/Color, Urine - YELLOW???Clarity - CLEAR???Specific Langley, Urine - 1.019???pH, Urine - 5.5???Albumin, Urine - TRACE???Glucose, Urine - NEGATIVE???Ketones, Urine - NEGATIVE???Bilirubin, Urine - NEGATIVE???Hemoglobin, Urine - NEGATIVE???Nitrite, Urine - NEGATIVE???Leukocyte, Urine - NEGATIVE? ?Urobilinogen - NORMAL? ?WBC's, Urine - <1 /HPF? ?RBC's, Urine - 2 /HPF? ?Bacteria - SLIGHT? ?Mucus - SLIGHT???Culture Indication - CULTURE NOT INDICATED URIC ACID (06/03/2024) ???Uric Acid - 5.2 mg/dL URIC ACID, URINE MG/DL (06/03/2024) ???Uric Acid, Urine Random - 22.3 mg/dL Urinalysis Complete (06/05/2024) ???Appear/Color, Urine - LIGHT YELLOW???Specific Langley, Urine - 1.016???pH, Urine - 6.0???Albumin, Urine - NEGATIVE???Glucose, Urine - NEGATIVE???Ketones, Urine - NEGATIVE???Bilirubin, Urine - NEGATIVE???Hemoglobin, Urine - NEGATIVE???Nitrite, Urine - NEGATIVE???Leukocyte, Urine - NEGATIVE???Urobi linogen - NORMAL???WBC's, Urine - 1 /HPF???RBC's, Urine - 2 /HPF URINARY MICROALBUMIN (06/08/2024) ???Malb/Creat Ratio - Unable to calculate???Urine Creat For Micro Alb - 138.1 mg/dL???Micro-Albumin- <12.0 mg/L Urine Creatinine (06/02/2024) ???Creatinine, Urine Random - 152.0 mg/dL Urine Osmolality (06/03/2024) ???Osmolality, Urine Random - 456 mOsm/kg Urine Sodium (06/02/2024) ???Sodium, Urine Random - 27 mmol/L You will be contacted within 72 hours with your results. Allergies (NKA means No Known Allergies) NKA Problems Active Problems??(4) Chronic anemia?? CKD (chronic kidney disease)?? GERD without esophagitis?? Status post liver transplant?? Education Materials Below is the list of Educational Leaflet Providered with your Discharge Instructions. Valuables and Belongings I fully understand and agree that [facility] accepts no responsibility for all my personal [...] Review of Valuable and Belonging List: With patient, With witness Date for Pt to Sign Valuables/Belongings: 06/02/24 20:21:00 ?? Other Discharge Information ? Pulmonary Rehab [...] are strongly encouraged to quit. Please call [facility] Online Link at [phone] or [phone] ([phone]) or log in to [email or web address] for referrals to smoking cessation programs. ?? 809 Suicide & Crisis Lifeline is available 02/12 if you or someone you know needs to find a reason to keep living. By calling 995 you'll be connected to a skilled, trained counselor at a crisis center in your area. INPATIENT DISCHARGE INSTRUCTIONS SIGNATURE FERNANDEZ SIMPSON Location:[facility] Registration Date and Time:06/02/2024 22:12 EST Primary Care Physician: Maxine Victoria MD, Attending Physician: Alexandre Nunez MD, I FERNANDEZ JOE, have received the above patient education materials/instructions and have verbalized understanding. If ambulance or transport services are being used I further acknowledge being given a choice of service. ?? If you need to contact me, please call me at this number: . Patient/Coal Picker Name: Patient/Coal Picker Signature: Relationship to Patient: Witness Name/Signature: Date: * Event Display: Provider Clarification Note Please click on pdf link to open report Consult note * Fariha Santana: MODIFY, PERFORM, MODIFY, MODIFY Event Display: Consultation Note Authored Date: [id number] Patient: ??FERNANDEZ JOE ? Age:??64 Years?Sex:??Male?:??1960?? Chief Complaint/Reason for Consultation Nephrology consulted for hyponatremia History of Present Illness Fernandez Joe is 64-year-old male??with a past medical history of??cirrhosis secondary to hepatitis C and alcohol use disorder status post liver transplant (July 2023, [facility]) currently on tacrolimus, CKD, myelodysplastic syndrome receiving weekly erythropoietin, transfusion dependent who??presented??on 06/02 for abnormal labs.? Patient had routine labs done earlier this week which showed a low sodium.??Patient was??advisedto go to the ED for further evaluation.? Labs are notable for sodium 121, potassium 5, chloride 89, bicarb 20, anion gap 12, BUN 31, creatinine 1.27. Hgb low at 6.3 for which pt refused a pRBC transfusion in the ED, though stated if it continued to remain low, would consider a transfusion then. Pt was admitted for further management and Ne phrology consulted for hyponatremia.? Upon visit w/ pt, reports he presented at the request of his PCP for abnormal labs, stating his sodium was low. Reports adequate PO intake and denies recent vomiting and diarrhea. Reports he is unsure how much water he drinks a day, however states he drinks more than two a day at least. States??he did have??low??sodium??in??the??past??after??his liver??transplant, but??hasn't happened since. Reports he had a liver transplant back in July 2023 for which he takes tacrolimus 4 mg BID. Denies chest pain, SOB, nausea, abdominal pain, lower extremity swelling, fevers, chills.?? Review of Systems As mentioned in HPI, otherwise negative?? Objective Vital Signs?? Temperature: 98 DegF (06/03/24 10:00:00) Temperature Route: Oral (06/03/24 10:00:00) Pulse Rate: 70 bpm (06/03/24 10:00:00) Respiratory Rate: 18 br/min (06/03/24 10:00:00) Systolic Blood Pressure:??150 mm Hg??High (06/03/24 10:00:00) Diastolic Blood Pressure: 70 mm Hg (06/03/24 10:00:00) Blood pressure sites: Arm, right (06/03/24 10:00:00) Mean Arterial Pressure: 97 mm Hg (06/03/24 10:00:00) Pulse Pressure: 80 mm Hg (06/03/24 10:00:00) Oxygen Saturation: 100 % (06/03/24 10:00:00) Mode of Delivery (Oxygen): Room air (06/03/24 08:09:00) Early Warning Score: 5 (06/03/24 11:43:14) ? Intake/Output? 06/02 22:12 06/03 07:00 06/02 07:00 06/01 07:00 05/31 07:00 ?? 06/03 13:09 06/03 13:09 06/03 06:59 06/02 06:59 06/01 06:59 Intake ?300 ?300 ?0 ?0 ?0 Output ?0 ?0 ?0 ?0 ?0 Net Total ?300 ?300 ?0 ?0 ?0 ? Physical Exam Physical Exam: General: Patient appears in no acute distress.?? HEENT: Moist mucous membranes noted.?? Cardiovascular: Regular rate and rhythm. Respiratory: Lungs clear to auscultation bilaterally. Abdominal: Soft Extremities: No peripheral edema.??All extremities warm to touch Neuro: Alert and oriented to person, place, time. ?? Assessment/Plan Fernandez Joe is 64-year-old male??with a past medical history of??cirrhosis secondary to hepatitis C and alcohol use disorder status post liver transplant (July 2023, [facility]) currently on tacrolimus, CKD, myelodysplastic syndrome receiving weekly erythropoietin, transfusion dependent who??presented??on 06/02 for abnormal labs (low sodium).??Pt was admitted for hyponatremia and anemia. Nephrology consulted for hyponatremia.? 1. Hypoosmolar Hyponatremia Na 120 today SOsm??259 (06/02), Pearl 107, UOsm 456 (06/03) TSH 1.84 (06/02) Of note, pt previously prescribed Urea 15 gm outpatient Likely SIADH, as supported by urine labs. Hyperkalemia raises ? adrenal insufficiency, will f/u cortisol level.? 2. Liver Transplant History of??cirrhosis secondary to hepatitis C and alcohol use disorder status post liver transplant in??July 2023 at [facility] Chronically pt is taking tacrolimus 4 mg BID Discussed with transplant team ([phone]) who stated goal tacrolimus level of 5-7.??If tacrolimus needs to be adjusted, please discuss with transplant team prior to adjusting. ?? 3. Anemia Hgb 6.4 (06/03) - pRBC transfusion ordered History of??myelodysplastic syndrome receiving weekly erythropoietin (per pt last dose was ) ?? Recommendations:?? - F/u cortisol level, UUric acid, serum uric acid - D/c Normal Saline - 3% Saline at 30 mL/hr x6 hours ? - q2h Na checks during administration with first check an hour after hypertonic saline infusion has started ? - Goal for Na to be 124 at the end of the day - Increase urea to 30 gm BID - Electrolytes q6h -??Do not correct Na at a rate greater than 6-8 mEq/L in a 24 hour period?? - Continue tacrolimus 4 mg BID - Daily tacrolimus level (to be drawn BEFORE AM dose) -??Monitor Hgb, transfuse if Hgb < 7?? -??Does not meet inpatient criteria for EPO?Thank you,??will continue to follow. ?Fariha Gurrola PA-C ?[facility] ?Discussed with ??Paramasivam Histories Allergies Allergies ?(Active and Proposed Allergies Only) NKA? (Severity: Unknown severity, Onset: Unknown) ? Past Medical History/Problem List Active Problems(4) Chronic anemia CKD (chronic kidney disease) GERD without esophagitis Status post liver transplant ? Past Surgical History No surgery history documented. ? Social History Alcohol Details:??Use: Past. Tobacco Details:??Use: Former smoker, quit more than 30 days ago. ??Type: Cigarettes. ? Family History Family History Unknown. ? Medications Home Medications Magnesium Oxide (magnesium oxide 400 mg oral capsule)?1?capsule?400?Milligram?By Mouth?Daily?2 times a day Miscellaneous Rx (CBC in 5 days)?See Instructions?Pls send the results to Dr Julien Goodman / Davin Allison Miscellaneous Rx (BMP in 5 days)?See Instructions?Pls send the results toMaxine Oquendo Pantoprazole (pantoprazole 40 mg oral delayed release tablet)?1?tab(s)?40?Milligram?By Mouth?Daily Tacrolimus (tacrolimus 5 mg oral capsule)?Daily at bedtime?5?Milligram?By Mouth Tacrolimus (tacrolimus 1 mg oral capsule)?4?Milligram?By Mouth?Daily Urea (Urea Powder)?15?gram?By Mouth?Daily Ursodiol (ursodiol 300 mg oral capsule)?300?Milligram?1?capsule?By Mouth?2 times a day ? Inpatient Medications Medications (15) Active SCHEDULED: (6) Magnesium Oxide 400 mg Tablet (magnesium oxide 400 mg oral tablet) ??400 mg, By Mouth, 2 times a day NaCl 0.9% Flush 3ml (NaCL 0.9% Flush) ??3 mL, IV Push, Every 8 hours Pantoprazole 40 mg EC Tablet (pantoprazole 40 mg oral delayed release tablet) ??40 mg, By Mouth, Daily Tacrolimus 1 mg Capsule (tacrolimus 1 mg oral capsule) ??4 mg, By Mouth, Every 12 hours Urea 15 Gm Powder (Urea Powder) ??15 Gm, By Mouth, Daily Ursodiol 300 mg Capsule (ursodiol 300 mg oral capsule) ??300 mg, By Mouth, 2 times a day CONTINUOUS: (1) NaCL 0.9% (1000 mL) Cont IV 1,000 mL (NaCL 0.9% 1,000 mL) ??1,000 mL, IV Infusion, 75 mL/hr PRN: (8) Acetaminophen 325 mg Tablet (Acetaminophen [...] mg, Chew, 3 times a day ? Results Recent Labs BLOOD BANK Blood Type O Positive ()?? 06/02/2024 19:40 Antibody Screen Negative ()?? 06/02/2024 19:40 RBC Unit ID [id number] ()?? 06/03/2024 12:18 RBC Available XM ()?? 06/03/2024 12:18 ?? BLOOD COUNT & DIFF WBC 2.7 k/mm3 (Low)?? 06/03/2024 07:33 RBC 2.06 m/mm3 (Low)?? 06/03/2024 07:33 Hgb 6.4 Gm/dL (Critical)?? 06/03/2024 07:33 Hct 17.4 % (Critical)?? 06/03/2024 07:33 MCV 84.5 femtoliters ()?? 06/03/2024 07:33 MCH 31.1 pg ()?? 06/03/2024 07:33 MCHC 36.8 Gm/dL ()?? 06/03/2024 07:33 Platelet Count 218 k/mm3 ()?? 06/03/2024 07:33 RDW-SD 58.6 femtoliters (High)?? 06/03/2024 07:33 MPV 10.4 femtoliters ()?? 06/03/2024 07:33 Nucleated RBC (Automated) 0.0 #/100 WBC'S ()?? 06/03/2024 07:33 Abs. NRBC 0.0 k/mm3 ()?? 06/03/2024 07:33 Abs. Neut 1.1 k/mm3 (Low)?? 06/02/2024 18:40 Abs. Lymph 0.7 k/mm3 (Low)?? 06/02/2024 18:40 Abs. Esmeralda 0.7 k/mm3 ()?? 06/02/2024 18:40 Abs. Eo 0.4 k/mm3 ()?? 06/02/2024 18:40 Abs. Baso 0.0 k/mm3 ()?? 06/02/2024 18:40 Neut % 38.5 % (Low)?? 06/02/2024 18:40 Lymph % 23.4 % ()?? 06/02/2024 18:40 Esmeralda % 24.1 % (High)?? 06/02/2024 18:40 Eos % 13.3 % (High)?? 06/02/2024 18:40 Baso % 0.0 % ()?? 06/02/2024 18:40 Imm Gran 0.7 % ()?? 06/02/2024 18:40 Abs. Imm Gran 0.0 k/mm3 ()?? 06/02/2024 18:40 ?? CHEM GENERAL Sodium 120 mmol/L (Low)?? 06/03/2024 09:17 Potassium 5.1 mmol/L ()?? 06/03/2024 09:17 Chloride 90 mmol/L (Low)?? 06/03/2024 09:17 Bicarbonate Level 19 mmol/L (Low)?? 06/03/2024 09:17 Anion Gap 11 mmol/L ()?? 06/03/2024 09:17 Glucose Level 85 mg/dL ()?? 06/03/2024 07:33 BUN 24 mg/dL (High)?? 06/03/2024 07:33 Creatinine-Blood 1.19 mg/dL ()?? 06/03/2024 07:33 Estimated GFR Creatinine 69 ML/MIN/1.73 M2 ()?? 06/03/2024 07:33 Osmolality 259 mOs/kg (Low)?? 06/02/2024 20:57 Calcium 9.6 mg/dL ()?? 06/03/2024 07:33 Magnesium 1.6 mg/dL ()?? 06/03/2024 07:33 Protein, Total 7.0 Gm/dL ()?? 06/02/2024 20:57 Albumin 4.5 Gm/dL ()?? 06/02/2024 20:57 AG Ratio 1.6 ()?? 06/02/2024 18:40 Alkaline Phosphatase 90 units/L ()?? 06/02/2024 20:57 AST (SGOT) 20 units/L ()?? 06/02/2024 20:57 ALT (SGPT) 28 units/L ()?? 06/02/2024 20:57 Bilirubin, Total 0.7 mg/dL ()?? 06/02/2024 20:57 Bilirubin, Direct 0.2 mg/dL ()?? 06/02/2024 20:57 Bilirubin, Indirect 0.5 mg/dL ()?? 06/02/2024 20:57 ?? COAG INR 1.1 ()?? 06/02/2024 20:57 Protime (PT) 11.7 seconds (High)?? 06/02/2024 20:57 APTT 27.1 seconds ()?? 06/02/2024 20:57 ?? ENDOCRINE/TUMOR MARKER TSH 1.84 uIU/mL ()?? 06/02/2024 20:57 ?? TOXICOLOGY/TDM Tacrolimus Level 8.5 ng/mL ()?? 06/02/2024 20:57 ?? URINE OTHER Creatinine, Urine Random 152.0 mg/dL ()?? 06/02/2024 20:13 Sodium, Urine Random 107 mmol/L ()?? 06/03/2024 06:22 Potassium, Urine Random 26.5 mmol/L ()?? 06/03/2024 06:22 Chloride, Urine Random 93 mmol/L ()?? 06/03/2024 06:22 Osmolality, Urine Random 456 mOsm/kg ()?? 06/03/2024 06:22 Est Creatinine Clearance 62.11 mL/min ()?? 06/03/2024 10:09 ? CBC, CBC w/Diff?? CBC?? Differential?? WBC:??2.7 k/mm3??Low (07:33) Abs. Neut:??1.1 k/mm3??Low (18:40) RBC:??2.06 m/mm3??Low (07:33) Abs. Lymph:??0.7 k/mm3??Low (18:40) Hct:??17.4 %??Critical (07:33) Abs. Esmeralda: 0.7 k/mm3 (18:40) RDW-SD:??58.6 femtoliters??High (07:33) Abs. Eo: 0.4 k/mm3 (18:40) Nucleated RBC (Automated): 0 #/100 WBC'S (07:33) Abs. Baso: 0 k/mm3 (18:40) Abs. NRBC: 0 k/mm3 (07:33) Neut %:??38.5 %??Low (18:40) ?? Lymph %: 23.4 % (18:40) ?? Esmeralda %:??24.1 %??High (18:40) ?? Eos %:??13.3 %??High (18:40) ?? Baso %: 0 % (18:40) ?? Imm Gran: 0.7 % (18:40) ?? Abs. Imm Gran: 0 k/mm3 (18:40) ? BMP, Mg, and Phos Anion Gap: 11 mmol/L (09:17) Bicarbonate Level:??19 mmol/L??Low (09:) BUN:??24 mg/dL??High (:33) Calcium: 9.6 mg/dL (:33) Chloride:??90 mmol/L??Low (:) Creatinine-Blood: 1.19 mg/dL (:33) Estimated GFR Creatinine: 69 ML/MIN/1.73 M2 (:33) Glucose Level: 85 mg/dL (:33) Magnesium: 1.6 mg/dL (:33) Potassium: 5.1 mmol/L (:17) Sodium:??120 mmol/L??Low (:17) ?? Urinalysis Chloride, Urine Random: 93 mmol/L (06:22) Creatinine, Urine Random: 152 mg/dL (20:13) Est Creatinine Clearance: 62.11 mL/min (10:09) Est Creatinine Clearance: 58.19 mL/min (19:26) Osmolality, Urine Random: 456 mOsm/kg (06:22) Osmolality, Urine Random: 531 mOsm/kg (20:13) Potassium, Urine Random: 26.5 mmol/L (06:22) Sodium, Urine Random: 107 mmol/L (06:22) Sodium, Urine Random: 27 mmol/L (20:13) ? * Iftikhar Arceo MD: PERFORM Event Display: Consultation Note Authored Date: Chart reviewed . Patient evaluated ??I have discussed the case , its management with the??PA on rounds on the date of??service. Agree with the findings and plan we developed together in the PA???s note detailed??below ? Patient Care team information Care Team Personnel Name: Kendrick Caba RN Position: S RN Member Role: Primary Care Nurse Name: Vicky Medina RN Position: S RN Member Role: Primary Care Nurse Name: Maxine Victoria MD Position: Reference Physician Member Role: PCP Address: [address] [place] [address] Telecom: Name: Edwin Serna RN Position: S RN Member Role: Primary Care Nurse Name: Stephanie Chaidez RN Position: S RN Member Role: Primary Care Nurse Name: Jeremy Torres RN Position: S RN Member Role: Primary Care Nurse Name: Iftikhar Arceo MD Position: [facility] Renal MD Member Role: Lifetime Consulting Physician Address: [address] [facility] [address] [facility] [address] Telecom: Name: Haley Mtz RN Position: [facility] RN Member Role: Primary Care Nurse Care Team Related Persons Name: FERNANDEZ JOE Insurance Providers Guarantor name: FERNANDEZ JOE Health Plan Information #: 1 Payer: [facility] Member Number: [id number] Policy Number: NA Group Number: NA Health Plan Information #: 2 Payer: [facility] [facility] Member Number: [id number] Policy Number: NA Group Number: NA
== END 2024-06-15 12:42 | disposition home or self-care (01) ==
LOC: HO.RESP 12:41
PROVIDERS: Visit Provider Hospitalist
DX: C34.90 Malignant neoplasm of unspecified part of unspecified bronchus or lung (principal)
CPT/HCPCS: 94010; 94640; 94727; 94729

== ENCOUNTER → 2024-06-15 12:45 | Outpatient (BNV) | payer OTHER, SELFPAY | PROVIDERS: Visit Provider Internal Medicine Pulmonary Disease | DX: C34.90 Malignant neoplasm of unspecified part of unspecified bronchus or lung (principal) | CPT/HCPCS: 94060; 94727; 94729 ==

== ENCOUNTER 2024-07-20 09:39 | Outpatient (AMB) | payer OTHER, SELFPAY ==
[2024-07-20 09:40] VITALS: BP 134/78; PULSE 71; O2SAT 100; BMI 24.4
--- NOTE | 2024-07-20 09:40 | MHC.OFFVIS ---
Vital Signs 07/20/24 09:40 Height 5 ft 9 in Weight 165 lb 5.547 oz BMI 24.4 BP 134/78 Blood Pressure Location Rt brachial Position Sitting Pulse 71 Pulse Source Pulse Oximeter Pulse Oximetry (%) 100 Oxygen Delivery Method Room Air Intake Visit Reasons: Pulmonary Nodule/PFT Follow Up Allergies No Known Allergies Allergy (Verified 07/20/24 09:45) HPI Comments Details: The patient is a 64-year-old gentleman, , with a history of There cirrhosis and pulmonary nodule. Apparently was evaluated within the [facility] system for a left-sided pulmonary nodule. He did undergo surgery 04/30/2023 where it was resected. The details of the surgery are not available. The pathology was consistent with adenocarcinoma. The surgery was with curative intent. Afterwards the patient continued having issues with liver failure due to his liver cirrhosis. He did finally undergo in liver transplantation about 5 months ago. Surgery well. Although postoperatively patient did have significant bleeding. He was briefly admitted to the [facility] beginning of January was found to be significantly anemic. Was transferred to his transplant hospital. His anemia was worked up. Currently his stable. His shortness breath has improved dramatically after his anemia was treated. During the office visit we did go for brief walking oximetry and the pulse ox is actually 100% throughout the ambulation. He was not having any significant dyspnea symptoms. Although the patient did have an elevated heart rate about 115 with minimal activity. We walked him on 300 ft. As far as respiratory exam the patient does not have any evidence of wheezing. He does not use any inhalers at this time which is good. The patient will continue to be monitor closely by his transplant team and also with the [facility] system. He did undergo a repeat CT scan of the chest at [facility] I believe sometime in the last 2 weeks. Will request a CT scan at this time. Through the [facility] system he will have serial CT scans based on the protocol after lung cancer diagnosis. Therefore, will hold off on any additional imaging at [facility] at this time. He did have a CT scan of the chest from 04/30/2023 that we personally reviewed this was before surgery demonstrating the pulmonary nodule. The patient also had cystic lung disease and some emphysema. 07/20/2024 the patient is here for pulmonary follow-up visit. Overall he is doing okay. Still getting transfusions regularly and also on EPAP for his significant anemia. Seems like his shortness of breath as anemia. He did undergo pulmonary function studies and we did personally review them. No obstructive nor restrictive ventilatory defects. However, he has a moderate diffusion impairment secondary to the decreased oxygen uptake due to his anemia. He is going to have a bone marrow biopsy done soon. This [facility] be [facility] at [facility]. [facility] Otherwise the patient is we either complaints. Will plan to follow-up sometime in 8 months if he has any issues prior to that he will call for an earlier assessment. [facility] Medical History Dyspnea Lung cancer History of alcohol abuse Liver cancer Smoker Cardiac murmur Aortic stenosis Hypertension Chronic hepatitis C Alcoholic cirrhosis Surgical History History of appendectomy H/O colonoscopy History of ablation of neoplasm of liver Social History Household Members: Spouse Housing: Apartment Do you presently have visiting nurse or other home services: No Alcohol intake: former Patient Tobacco Use Status: Former Tobacco user Tobacco use type: Cigarette Cigarettes Per Day: 6 Years Smoked: 20 years service: Yes Review of Systems Const Denies fatigue, Denies fever(s), Denies night sweats, Denies poor appetite and Denies weight loss ENT Reports no additional complaints Card Reports palpitations and Reports dyspnea on exertion Resp Reports dyspnea on exertion and Denies wheezing GI Reports as per HPI Musc Reports no additional complaints Skin/Breast Denies pruritus, Denies lesions, Denies rash and Denies jaundice Neuro Denies Abnormal speech present Endo Denies fatigue and Reports palpitations Alphonso/Lymph Denies lymphadenopathy Aller/Immun Denies wheezing Physical Exam Vital Signs: Last Vital Signs Pulse 71 07/20/24 09:40 BP 134/78 07/20/24 09:40 Pulse Ox 100 07/20/24 09:40 Oxygen Delivery Method Room Air 07/20/24 09:40 BMI result Body Mass Index 24.4 Const General: comfortable HEENT Head: Yes normocephalic Neck Neck: Yes supple Chest Chest palpation & inspection: normal inspection of the chest Resp Effort & Inspection: normal respiratory effort Auscultation: clear to auscultation bilaterally Cardio Heart sounds: S1 normal heart sound present and S2 normal heart sound present GI Palpation (GI): Soft to palpation Skin General skin exam: no rashes or lesions noted Neuro Speech: No Abnormal speech present Extrem General: Yes no clubbing, cyanosis or edema Assessment & Plan Assessment & Plan (1) Lung cancer: Code(s): C34.90 - Malignant neoplasm of unspecified part of unspecified bronchus or lung Category: Medical Qualifiers: Laterality: right Lung location: unspecified part of lung Qualified Code(s): C34.91 - Malignant neoplasm of unspecified part of right bronchus or lung (2) Liver transplant status: Code(s): Z94.4 - Liver transplant status Category: Surgical (3) Anemia: Code(s): D64.9 - Anemia, unspecified Category: Medical Qualifiers: Anemia type: unspecified type Qualified Code(s): D64.9 - Anemia, unspecified (4) Dyspnea: Code(s): R06.00 - Dyspnea, unspecified Category: Medical Qualifiers: Dyspnea type: dyspnea on exertion Qualified Code(s): R06.09 - Other forms of dyspnea Plan monitor Hb Serial CT chest, will [facility] with isolated moderate diffusion impairement likely due to anemia F/U 6 months Coding Level of Care Code Est Pt Level 4 (43324) Diagnoses Malignant neoplasm of right lung, unspecified part of lung C34.91 Laterality: right Lung location: unspecified part of lung Liver transplant status Z94.4 Anemia, unspecified type D64.9 Anemia type: unspecified type Dyspnea on exertion R06.09 Dyspnea type: dyspnea on exertion Time Spent (min) 16
--- OUTSIDE RECORDS SUMMARY | 2024-07-20 10:53 | XMS_ITS | Clinical Summary ---
Author Organization [facility] Address [address] [place] [address] Phone Care Team Providers Care Gas Cutter Name Role Phone Unavailable Primary Care Provider Unavailabl e Medications darbepoetin penelope 300 MCG/0.6ML solution prefilled syringe Inject 300 mcg under the skin 5 Active Magnesium Oxide -Mg Supplement 400 MG capsule Take 400 mg by mouth 4 Active pantoprazole (PROTONIX) 40 MG EC tablet Take 40 mg by mouth 1 (one) time each day before breakfast 4 Active Sodium Zirconium Cyclosilicate 5 g pack Take 5 g by mouth 5 Active Tacrolimus ER 1 MG capsule sustained-release 24 hr Take 4 capsules by mouth in the morning and 4 capsules in the evening. 5 Active ursodiol (ACTIGALL) 300 MG capsule Take 300 mg by mouth in the morning and 300 mg at noon and 300 mg in the evening. 4 Active Urea 15 GM/SCOOP powder Take 15 g by mouth 1 (one) time each day Active Encounters Date Type Department Care Team Description 06/16/2024 Office Communication [facility] [address] [address] Iftikhar Arceo MD 06/16/2024 Office Communication [facility] [address] [place] [address] Iftikhar Arceo MD from Last 3 Months Social History Tobacco Use Types Packs/Day Years Used Date Smoking Tobacco: Never Assessed Sex and Gender Information Value Date Recorded Sex Assigned at Not on file Legal Sex Male 10:41 AM EST Gender Identity Not on file Sexual Orientation Not on file Plan of Treatment Upcoming Encounters Date Type Department Care Team (Late st Contact Info) Description 07/21/2024 8:30 AM EDT Office Visit [facility] P.[place] [address] [place] [address] Gena Robison ARNP [address] [place] [address] Health Maintenance Due Date Last Done Comments Colorectal Cancer Screening: Annual FOBT 2010 Colorectal Cancer Screening: Colonoscopy 2010 Colorectal Cancer Screening: Sigmoidoscopy 2010 Pneumococcal Vaccine: Pediat rics (0 to 5 Years) and At-Risk Patients (6 to 64 Years) (2 of 2 - PCV) 03/21/2018 03/21/2017 Influenza Vaccine (#1) 2024 Hepatitis B Vaccine Completed 08/30/2014, 02/24/2014, 01/25/2014, Additional history exists Procedures Procedure Name Priority Date/Time Associated Diagnosis Comments EXT RESULT ENTRY Routine 07/08/2024 EXT RESULT ENTRY Routine 06/27/2024 from Last 3 Months Results * (ABNORMAL) EXT RESULT ENTRY (07/08/2024) Only the most recent of2 resultswithin the time period is included. WBC 3.1(A) 3.3 - 10.0 10*3/ML Red Blood Cell Count 2.39 Hemoglobin 7.5(A) 13.5 - 17.5 Hematocrit 22.2(A) 41.0 - 53.0 Platelets 223 150 - 399 10*3/UL Sodium 139 137 - 147 Potassium 4.5 3.4 - 5.5 Anion Gap 8 <=30 MMOL/L Glucose 91 60 - 200 BUN 22(A) 4 - 21 mg/dL Creatinine 1.40(A) 0.60 - 1.30 mg/dL Calcium 9.4 8.7 - 10.7 mg/dL eGFR Non-Afr Rw[place]an 56 07/08/2024 Historical Provider LAB BLOOD ORDERABLES Shi dior Result from Last 3 Months Insurance [facility] 1,2,3 (VACCN)
--- OUTSIDE RECORDS SUMMARY | 2024-07-20 10:54 | XMS_ITS | Continuity of Care Document ---
Author Organization [facility] Address [address] [place] [address] Phone Care Team Providers Care Certifier Name Role Phone Unavailable Unavailable Unavailable Allergies, [...] Providers Copied on Encounter OFFICE/OUTPA TIENT VISIT, [facility], [address], [place], [place], [id number], [place] tel:[phone] [facility] Follow Up of hypertension (chief complaint)Hype rlipidemia (chief complaint) Essential hypertensionH ypertriglycer idemia 6 No Information [facility], [address], [place], [place], [id number], [place] tel:[phone] [facility] No Information 6 No Information [facility], [address], [id number], [place] tel:[phone] [facility] No Information 6 No Information OFFICE/OUTPA TIENT VISIT, [facility], [address], [place], [id number], [place] tel:[phone] [facility] musculoskeleta l pain (chief complaint) Right groin pain 5 No Information [facility], [address], [place], [place], [id number], [place] tel:[phone] [facility] No Information 5 Pharmacy [facility]. [address] [place], [address]. tel:[phone] OFFICE/OUTPA TIENT VISIT, [facility], [address], [place], [place], [id number], [place] tel:[phone] [facility] Groin pain (chief complaint)musc uloskeletal pain (chief complaint) No Information 5 No Information OFFICE/OUTPA TIENT VISIT, [facility], [address], [place], [place], [id number], [place] tel:[phone] [facility] musculoskeleta l pain (chief complaint) No Information 4 No Information OFFICE/OUTPA TIENT VISIT, [facility], [address] [address], [place], [place], [id number], [place] tel:[phone] [facility] musculoskeleta l pain (chief complaint) No Information 4 No Information OFFICE/OUTPA TIENT VISIT, [facility], [address] [facility] [address], [place], [id number], [place] tel:[phone] [facility] Dante Arm pain (chief complaint) No Information 4 No Information OFFICE/OUTPA TIENT VISIT, [facility], [address], [id number], [place] tel:[phone] [facility] musculoskeleta l pain (chief complaint) No Information 4 No Information OFFICE/OUTPA TIENT VISIT, [facility], [address], [id number], [place] tel:[phone] [facility] musculoskeleta l pain (chief complaint) No Information No Information [facility], [address], [id number], [place] tel:[phone] [facility] No Information 4 Pharmacy [facility]. [facility] [place], [address]. tel:[phone] Family History Family Member Type Diagnosis Age At Onset Mother Problem (finding) Alive and well Mother Problem (finding) hypertension Payers Payer name Insurance type Covered alliance party ID Ida garcia(s) [facility] [id number] Social History Type Description Quantity Date Captured [...] in the legs. Additional information: X-ray at [facility], normal. Diffuculty grabbing, moving hand. 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 Denies hx of substance abuse. [...] operating machinery. X-ray R upper arm from [facility] was normal Related to Right arm pain Referred to ophthalmology Relate d to [facility] changes 2-3 week hx of worse mely R forearm pain. Denies injury. States pain is 9/10, stabbing in nature; denies numbness/tingling. Good sensation and circulation in R upper ext. decreased strength, and pain with motion (flex, exten, stockroom associate); there are some muscle spasms noted R forearm. Seen at [facility], X-ray, normal. States ibuprofen given at [...] Mental Status Date Cognitive Assessment Orientation - [place] ed to time, place, person, situation. Patient Care Teams Name Effective Dates (start - stop) Status Members No Information
--- OUTSIDE RECORDS SUMMARY | 2024-07-20 10:54 | XMS_ITS | Continuity of Care Document ---
Author Organization [facility] ter Address [address] [place] [id number]- Care Team Providers Care Beadworker Name Role Phone Leonora Harris MD Primary Care Physician Encounter [facility] Date(s): 07/07/24 - 07/08/[address] [address]- Encounter Diagnosis Anemia(Final) - 07/07/24 Discharge Disposition: A-D/C Home Attending Physician: Heriberto Alves MD Admitting Physician: Luz Sweeney MD Referring Physician: Not on Staff, Referring MD Encounter Type: Disch IP Allergies, Adverse Reactions, Alerts No Known Allergies Immunizations Given and Recorded Vaccine Date Status Refusal Reason influenza virus vaccine, inactivated 02/25/24 Gaurav rded influenza virus vaccine, inactivated 01/25/22 Gaurav rded influenza virus vaccine, inactivated 01/11/20 Gaurav rded influenza virus vaccine, inactivated 02/07/17 Gaurav rded SARS-CoV-2(COVID-19)mRNA-LNP vac([id number]) 02/25/24 Recorded SARS-CoV-2 mRNA ([id number]) vax 11/23/21 Recorded tetanus/diphtheria/pertussis, acel(Tdap) 07/17/21 Recorded [...] Hepatitis A-Hepatitis B Vaccine 11/11/12 Recorded Medications darbepoetin penelope 300 mcg/0.6 mL injectable solution = 300 mcg, Subcutaneous Infusion, Every 14 days, 0 Refills, Maintenance, 06/23/24 1:28:00 PM EST, Partial fill upon patient request if the prescription is for a schedule II opioid drug. Start Date: 06/23/24 Status: Ordered Repeat number: 1 magnesium oxide 400 mg [...] tablet = 40 mg, By Mouth, Daily, 0 Refills, Maintenance, 04/05/24 9:47:00 PM EST, EC Tablet Start Date: 04/05/24 Status: Ordered Repeat number: 1 sodium zirconium cyclosilicate 5 g oral powder for reconstitution 1 pack/packet = 5 Gm, By Mouth, Daily, 0 Refills, Maintenance, 06/23/24 1:25:00 PM EST, Partial fillupon patient request if the prescription is for a schedule II opioid drug. Start Date: 06/23/24 Status: Ordered Repeat number: 1 tacrolimus 1 mg oral capsule 4 capsule = 4 mg, By Mouth, 2 times a day, 0 Refills, Maintenance, 06/23/24 1:26:00 PM EST, Partial fill upon patient request if the prescription is for a schedule II opioid drug. Start Date: 06/23/24 Status: Ordered Repeat number: 1 urea 15 g oral powder for reconstitution = 15 Gm, By Mouth, Daily, 0 Refills, Maintenance, 06/23/24 1:26:00 PM EST, Partial fill upon patientrequest if the prescription is for a schedule II opioid drug. Start Date: 06/23/24 Status: Ordered Repeat number: 1 ursodiol 300 mg oral capsule 300 mg, 1, capsule, By Mouth, 3 times a day, Refills 0, Maintenance, 04/05/24 9:48:00 PM EST, Partial fill upon patient request if the prescription is for a schedule II opioid drug. 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 Confirmed Active GERD without esophagitis Confirmed Active Status post liver transplant Confirmed Active MDS - Myelodysplastic syndrome Confirmed Active Vital Signs Most recent to oldest [Reference Range]: 1 2 3 Height 175 cm (07/08/24 3:39 PM) 175 cm (07/08/24 7:37 AM) 175 cm (07/08/24 2:28 AM) Weight 70.8 kg (07/08/24 1:40 AM) 73.7 kg (07/07/24 10:40 AM) Oxygen Saturation [94-100 %] 100 % (07/08/24 3:39 PM) 100 % (07/08/24 7:37 AM) 100 % (07/08/24 2:28 AM) Pulse Rate [55-90 bpm] 71 bpm (07/08/24 3:39 PM) 66 bpm (07/08/24 7:37 AM) 59 bpm (07/08/24 2:28 AM) Body Mass Index [18.5-24.99 kg/m2] 23.12 kg/m2 (07/08/24 1:40 AM) 24.07 kg/m2 (07/07/24 10:40 AM) Blood Pressure [90-138/55-84 mm Hg] 139/87mm Hg *H* (07/08/24 3:39 PM) 145/92mm Hg *H* (07/08/24 7:37 AM) 133/82mm Hg (07/08/24 2:28 AM) Respiratory Rate [16-30 br/min] 18 br/min (07/08/24 3:39 PM) 17 br/min (07/08/24 7:37 AM) 18 br/min (07/08/24 2:28 AM) Temperature [96.8-100.4 DegF] 97.9 DegF (07/08/24 3:39 PM) 98.1 DegF (07/08/24 7:37 AM) 97.7 DegF (07/08/24 2:28 AM) Liters per Minute 0 L/min (07/08/24 1:40 AM) Mode of Delivery (Oxygen) Room air (07/08/24 3:39 PM) Room air (07/08/24 7:37 AM) Room air (07/08/24 2:28 AM) Blood pressure sites Arm, left (07/08/24 3:39 PM) Arm, left (07/08/24 7:37 AM) Arm, right (07/08/24 2:28 AM) Temperature Route Oral (07/08/24 3:39 PM) Oral (07/08/24 7:37 AM) Oral (07/08/24 2:28 AM) Dry Weight 73.8 kg (07/08/24 1:40 AM) 73.7 kg (07/07/24 10:40 AM) Weight Obtained Via Bed scale (07/08/24 1:40 AM) Standing scale (07/07/24 10:40 AM) Dry Weight Obtained Via Patient/family stated (07/08/24 1:40 AM) Standing scale (07/07/24 10:40 AM) Social History Social History Type Response Smoking Status Former smoker, quit more than 30 days ago; Type: Cigarettes entered on: 06/03/24 Sex Male Sex Representation Male (finding) Admission evaluation note * Courtney Winkler DO: PERFORM Event Display: Admission Note Authored Date: [id number] Patient: ??ROCAEL LAW ? Age:??64 Years?Sex:??Male?:??1960?? Chief Complaint/Reason for Consultation acute anemia History of Present Illness ?? Patient is a 64-year-old male with history of cirrhosis secondary to hepatitis C and alcohol use disorder s/p liver transplant in??July 2023 at [facility], CKD, myelodysplastic syndrome on EPO injections, chronic anemia requiring multiple transfusions in the past including most recently on 06/23- 06/24/24 during which he was discharged s/p 2.5 units pRBCs who presents to the emergencydepartment after he was advised to come in for abnormal outpatient labs with hemoglobin 5.9, decreased from 8.4 on 06/28/24. [facility]has been otherwise been in normal health. Patient states that he has no symptoms and feels??fin e.??Patient??denies bleeding or other signs of acute blood loss. Of note, patient states that he has two large hernias and has plan for follow-up next month in [place] for his liver transplant. Ofnote, anemia workup during prior hospitalization revealed elevated kappa and lamda light chains, otherwise unremarkable. ?? On presentation to the ED, patient was mildly hypertensive 142/81, otherwise afebrile and satting 100% on RA. Repeat labs were notable for H/H 5.3/16.6. BUN/Cr 24/1.46 at baseline.??Patient was also ordered for 1 unit pRBCs. At time of my evaluation, patient was sitting comfortably on bed, AAOx3, answering questions appropriately. Denies pain/discomfort. Patient denies dizziness, nausea/vomiting, chest pain, shortness of breath, or weakness. Last BM was this morning. Denies difficulty with urination. Review of Systems As above Objective Vital Signs?? Temperature: 98.7 DegF (07/07/24 13:03:00) Temperature Route: Oral (07/07/24 13:03:00) Pulse Rate: 85 bpm (07/07/24 13:03:00) Respiratory Rate: 19 br/min (07/07/24 13:03:00) Systolic Blood Pressure: 126 mm Hg (07/07/24 13:03:00) Diastolic Blood Pressure:??89 mm Hg??High (07/07/24 13:03:00) Blood pressure sites: Arm, left (07/07/24 13:03:00) Mean Arterial Pressure: 101 mm Hg (07/07/24 10:40:00) Pulse Pressure: 61 mm Hg (07/07/24 10:40:00) Oxygen Saturation: 100 % (07/07/24 13:03:00) Mode of Delivery (Oxygen): Room air (07/07/24 13:03:00) ?? Physical Exam General:??No acute distress, alert & oriented x3, pale appearing HEENT:??Moist mucus membranes Neck:??Supple, no??JVP?? Respiratory:??Clear to auscultation bilaterally, no increased work of breathing, no wheezes/rales Cardiovascular:??Normal rate, regular rhythm, no murmurs/rubs/gallops, peripheral pulses intact Abdomen:??Umbilical hernia present, reducible and soft. Otherwise normal active bowel sounds, non-tender, non-distended Extremities:??No edema, warm & dry Skin:??No rashes, lesions or skin breakdown Assessment/Plan Assessment:??This is a 64-year-old male with history of cirrhosis secondary to hepatitis C and alcohol use disorder s/p liver transplant in??July 2023 at [facility], CKD, myelodysplastic syndrome on EPO injections, chronic anemia requiring multiple transfusions in the past including most recently on 06/23-06/24/24 during which he was discharged s/p 2.5 units pRBCs who presents to theemergency department after he was advised to come in for abnormal outpatient labs with hemoglobin 5.9, decreased from 8.4 on 06/28/24 and admitted for monitoring s/p 1u pRBCs.? Acute on chronic anemia (D64.9):?? Myelodysplastic syndrome (D46.9) Chronic anemia, transfusion dependent. Known MDS on EPO injections. Hx of multiple transfusions in the past most recently on 06/23-06/24. Prior anemia workup revealed elevated kappa and lamda light chains, otherwise unremarkable including iron panel. Has new patient visit with??[facility] hematology scheduled for 07/21. ?? Plan: - Repeat H/H 2 hours post-transfusion - Transfuse for Hgb <7 -??Will reach out to hematology tomorrow??for inpatient consult vs outpatient f/u - Monitor CBC ?? Status post liver transplant (Z94.4) Hepatitis C (B19.20) ? Liver transplant in July 2023??at [facility].??Care is in [facility] at??[place]??with??regular visits to [place]??DC. Tacrolimus dose 4mg BID.?? Plan: - F/u tacrolimus level tomorrow AM - Continue tacrolimus at 4mg BID?? -??Transplant team, last number listed [phone] - Ensure follow up with Transplant Team - Continue home Ursodiol ?? GERD without esophagitis (K21.9):??Continue home PPI ?? VTE Prophylaxis:??pneumoboots, pt ambulatory ?VTE Prophylaxis Assessment:??VTE Prophylaxis Ordered ?? Code Status:??Full, confirmed with patient?Order Code Status:??Code Status Ordered ?? Courtney Winkler, DO Med-Peds PGY-3 Pager [phone] or [place] ?? This patient was seen and discussed with attending physician ??William.?? Histories Allergies Allergies ?(Active and Proposed Allergies Only) NKA? (Severity: Unknown severity, Onset: Unknown) ? 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 Past Surgical History LTx - Liver transplant Biliary stent procedures ? Social History Alcohol Details:??Use: Past. Home/Environment Details:??Living situation: Home/Independent. ??Lives with: Spouse. Tobacco Details:??Use: Former smoker, quit more than 30 days ago. ??Type: Cigarettes. ? Family History Family History Unknown. ? Medications Home Medications Darbepoetin Penelope (darbepoetin penelope 300 mcg/0.6 mL injectable solution)??300 Microgram Subcutaneous Infusion Every 14 days Magnesium Oxide (magnesium oxide 400 mg oral capsule)??1 capsule 400 Milligram By Mouth 2 times a day Pantoprazole (pantoprazole 40 mg oral delayed release tablet)??1 tab(s) 40 Milligram By Mouth Daily sodium zirconium cyclosilicate (sodium zirconium cyclosilicate 5 g oral powder for reconstitution)??1 pack/packet 5 gram By Mouth Daily Tacrolimus (tacrolimus 1 mg oral capsule)??4 capsule 4 Milligram By Mouth 2 times a day urea powder (urea 15 g oral powder for reconstitution)??15 gram By Mouth Daily Ursodiol (ursodiol 300 mg oral capsule)??300 Milligram 1 capsule By Mouth 3 times a day ? Results Recent Labs BLOOD BANK Blood Type O Positive ()?? 07/07/2024 11:45 Antibody Screen Negative ()?? 07/07/2024 11:45 RBC Unit ID [id number] ()?? 07/07/2024 13:50 RBC Available IS ()?? 07/07/2024 13:50 ?? BLOOD COUNT & DIFF WBC 2.8 k/mm3 (Low)?? 07/07/2024 12:58 RBC 1.71 m/mm3 (Low)?? 07/07/2024 12:58 Hgb 5.3 Gm/dL (Critical)?? 07/07/2024 12:58 Hct 16.6 % (Critical)?? 07/07/2024 12:58 MCV 97.1 femtoliters (High)?? 07/07/2024 12:58 MCH 31.0 pg ()?? 07/07/2024 12:58 MCHC 31.9 Gm/dL (Low)?? 07/07/2024 12:58 Platelet Count 197 k/mm3 ()?? 07/07/2024 12:58 RDW-SD 84.0 femtoliters (High)?? 07/07/2024 12:58 MPV 10.6 femtoliters ()?? 07/07/2024 12:58 Nucleated RBC (Automated) 0.0 #/100 WBC'S ()?? 07/07/2024 12:58 Abs. NRBC 0.0 k/mm3 ()?? 07/07/2024 12:58 Abs. Neut 1.3 k/mm3 ()?? 07/07/2024 12:58 Abs. Lymph 0.5 k/mm3 (Low)?? 07/07/2024 12:58 Abs. Lassen 0.5 k/mm3 ()?? 07/07/2024 12:58 Abs. Eo 0.4 k/mm3 ()?? 07/07/2024 12:58 Abs. Baso 0.0 k/mm3 ()?? 07/07/2024 12:58 Neut % 46.8 % ()?? 07/07/2024 12:58 Lymph % 18.7 % ()?? 07/07/2024 12:58 Lassen % 17.3 % (High)?? 07/07/2024 12:58 Eos % 15.8 % (High)?? 07/07/2024 12:58 Baso % 0.0 % ()?? 07/07/2024 12:58 Imm Gran 1.4 % ()?? 07/07/2024 12:58 Abs. Imm Gran 0.0 k/mm3 ()?? 07/07/2024 12:58 ?? CHEM GENERAL Sodium 143 mmol/L ()?? 07/07/2024 12:58 Potassium 5.1 mmol/L ()?? 07/07/2024 12:58 Chloride 112 mmol/L (High)?? 07/07/2024 12:58 Bicarbonate Level 20 mmol/L (Low)?? 07/07/2024 12:58 Anion Gap 11 mmol/L ()?? 07/07/2024 12:58 Glucose Level 89 mg/dL ()?? 07/07/2024 12:58 BUN 24 mg/dL (High)?? 07/07/2024 12:58 Creatinine-Blood 1.46 mg/dL (High)?? 07/07/2024 12:58 Estimated GFR Creatinine 54 ML/MIN/1.73 M2 ()?? 07/07/2024 12:58 Calcium 8.7 mg/dL ()?? 07/07/2024 12:58 Protein, Total 6.7 Gm/dL ()?? 07/07/2024 12:58 Albumin 3.9 Gm/dL ()?? 07/07/2024 12:58 AG Ratio 1.4 ()?? 07/07/2024 12:58 Alkaline Phosphatase 68 units/L ()?? 07/07/2024 12:58 AST (SGOT) 19 units/L ()?? 07/07/2024 12:58 ALT (SGPT) 24 units/L ()?? 07/07/2024 12:58 Bilirubin, Total 0.5 mg/dL ()?? 07/07/2024 12:58 ?? URINE OTHER Est Creatinine Clearance 51.62 mL/min ()?? 07/07/2024 13:44 ? Hospital Progress note * Jonathan GASTON, Meredith Plaza: PERFORM, SIGN, VERIFY Event Display: Progress Note Hospital Authored Date: [id number] Patient: ROCAEL LAW Age: 64 years Sex: Male : 1960 Associated Diagnoses: None Author: Jonathan GASTON, Meredith Plaza Findings Problem Related to Alteration in Tissue Perfusion : Alteration in Tissue Perfusion 07/08/2024 2:00 EST Alteration Tissue Perfusion related to Anemia Goals & Outcomes: Tissue perfusion Pt will experience improved tissue perfusion, Pt will be hemodynamically stable, Pt will achieve normal/improved/optimal neuro status, Pt will return to baseline respiratory function, Pt will maintain adequate GI function appropriate for pt, Pt will maintain adequate function appropriate for pt Interventions: Tissue Perfusion Assess/Monitor mental status, Assess/Monitor vital signs per unit standard & prn, Monitor blood loss, Monitor Intake & Output, Monitor labs & report variances to provider, Monitor response to fluid replacement, Elevate limbs, Physical assessment per unit standards, Position for comfort, Teach pt/caregiver on plan of care, treatment, s/s & meds, Teach pt/caregiver on use of pain scale, Teach Pt/caregiver signs & symptoms of infection, Monitor for diarrhea, bloody stools, Monitor for distended, tender abdomen, Assess/monitor effects of blood product administration, Assess/monitor excretions for blood, Assess/monitor for blood product transfusion reaction, Assess/monitor lab values affected by blood loss BH Goals/Interventions, Tissue Perfusion Yes Tissue Perfusion, Problem Start 07/08/2024 3:06 Reviewed Plan with, Tissue Perfusion Patient Patient Progression, Tissue Perfusion Plan Initiation . Nursing Data Vital Signs : VITAL SIGNS SECTION 07/08/2024 7:37 EST Early Warning Score 3.00 07/08/2024 7:37 EST Temperature 98.1 DegF Temperature Route Oral Pulse Rate 66 bpm Respiratory Rate 17 br/min Systolic Blood Pressure 145 mm Hg H Diastolic Blood Pressure 92 mm Hg H Blood pressure sites Arm, left Mean Arterial Pressure 110 mm Hg Pulse Pressure 53 mm Hg Oxygen Saturation 100 % Mode of Delivery (Oxygen) Room air 07/08/2024 2:28 EST Temperature 97.7 DegF Temperature Route Oral Pulse Rate 59 bpm Respiratory Rate 18 br/min Systolic Blood Pressure 133 mm Hg Diastolic Blood Pressure 82 mm Hg Blood pressure sites Arm, right Mean Arterial Pressure 99 mm Hg Pulse Pressure 51 mm Hg Oxygen Saturation 100 % Mode of Delivery (Oxygen) Room air . Evaluation Alert and oriented x 4 . Absence of Pain. VSS. No edema noted, denies chest pain. LCTA, room air, unlabored, denies Sob. Abdomen SNT +BS, last BM 07/08 , No N/V, swallows pills whole. Voids in bathroom . SKin is intact, IV access in both arms . Patient is independent . Patient safety is maintained, hourly rounding, call banks is in reach. Will continue plan of care.. * Edda Anders RN: PERFORM, SIGN, VERIFY Event Display: Progress Note Hospital Authored Date: [id number] Patient: ROCAEL LAW Age: 64 years Sex: Male : 1960 Associated Diagnoses: None Author: Edda Anders RN Findings Problem Related to Alteration in Tissue Perfusion : Alteration in Tissue Perfusion 07/08/2024 2:00 EST Alteration Tissue Perfusion related to Anemia Goals & Outcomes: Tissue perfusion Pt will experience improved tissue perfusion, Pt will be hemodynamically stable, Pt will achieve normal/improved/optimal neuro status, Pt will return to baseline respiratory function, Pt will maintain adequate GI function appropriate for pt, Pt will maintain adequate function appropriate for pt Interventions: Tissue Perfusion Assess/Monitor mental status, Assess/Monitor vital signs per unit standard & prn, Monitor blood loss, Monitor Intake & Output, Monitor labs & report variances to provider, Monitor response to fluid replacement, Elevate limbs, Physical assessment per unit standards, Position for comfort, Teach pt/caregiver on plan of care, treatment, s/s & meds, Teach pt/caregiver on use of pain scale, Teach Pt/caregiver signs & symptoms of infection, Monitor for diarrhea, bloody stools, Monitor for distended, tender abdomen, Assess/monitor effects of blood product administration, Assess/monitor excretions for blood, Assess/monitor for blood product transfusion reaction, Assess/monitor lab values affected by blood loss BH Goals/Interventions, Tissue Perfusion Yes Tissue Perfusion, Problem Start 07/08/2024 3:06 Reviewed Plan with, Tissue Perfusion Patient Patient Progression, Tissue Perfusion Plan Initiation . Narrative/Incidental Pt arrived from the ED to S3, bed 24A at 0130. Pt ambulated to bed with steady gait, blood transfusion going. Pt is oriented x3, lungs clear, 02 RA. NO BM yet. No n/v. tolerated small snack/gingerale. Blood transfusion completed at 0225, no s/s of reaction. PT aware of the plan of care. Oriented to room, call banks system, and bed mechanics. Will continue to monitor till 0700 Educated patient to reports any new changes to RN. . Note * Vinh Johnson MD, Heriberto: PERFORM Event Display: Discharge/Transfer Note Hospital Authored Date: [id number] Patient: ??ROCAEL LAW ? Age:??64 Years?Sex:??Male?:??1960?? Patient Information Discharge Location: Primary Care Physician: Leonora Harris MD Admit Date/Time: 07/07/2024 14:20 Discharge Disposition Discharge Disposition: ?? Discharge Diagnosis General medical ([id number]) Anemia (D64.9) _ Discharge Medications Darbepoetin Penelope (darbepoetin penelope 300 mcg/0.6 mL injectable solution)??300 Microgram Subcutaneous Infusion Every 14 days Magnesium Oxide (magnesium oxide 400 mg oral capsule)??1 capsule 400 Milligram By Mouth 2 times a day Pantoprazole (pantoprazole 40 mg oral delayed release tablet)??1 tab(s) 40 Milligram By Mouth Daily sodium zirconium cyclosilicate (sodium zirconium cyclosilicate 5 g oral powder for reconstitution)??1 pack/packet 5 gram By Mouth Daily Tacrolimus (tacrolimus 1 mg oral capsule)??4 capsule 4 Milligram By Mouth 2 times a day urea powder (urea 15 g oral powder for reconstitution)??15 gram By Mouth Daily Ursodiol (ursodiol 300 mg oral capsule)??300 Milligram 1 capsule By Mouth 3 times a day ? Medications Started none Medications Discontinued none Doses Changed none Allergies Allergies ?(Active and Proposed Allergies Only) NKA? (Severity: Unknown severity, Onset: Unknown) ? Hospital Course 64-year-old male with history of cirrhosis secondary to hepatitis C and alcohol use disorder s/p liver transplant in July 2023 at [facility], CKD, myelodysplastic syndrome on EPO injections, chronic anemia requiring multiple transfusions in the past including most recently on 06/23-06/24/24 during which he was discharged s/p 2.5 units pRBCs who presents to the emergency department after he was advised to come in for abnormal outpatient labs with hemoglobin 5.9, decreased from 8.4 on 06/28/24 and admitted for monitoring s/p 1u pRBCs. ? Acute on chronic anemia (D64.9): Myelodysplastic syndrome (D46.9) Chronic anemia, transfusion dependent; known MDS on EPO injections. ??Hx of multiple transfusions in the past most recently on 06/23-06/24. He had Hg of 5.3 for which had 2 units of PRBC with improvement up to 7.5 ??Prior anemia workup revealed elevated kappa and lamda light chains, otherwise unremarkable including iron panel. Has new patient visit with [facility] hematology scheduled for 07/21. Hematology consulted, which will coordinate for follow up including a bone marrow biopsy as outpatient. He is stable for discharge home today plan: follow up with Hematology as outpatient ?? Status post liver transplant (Z94.4) Hepatitis C (B19.20) ? Liver transplant in July 2023 at [facility]. Care is in [facility] at [place] with regular visits to [facility]. Tacrolimus dose 4mg BID. Tacrolimus level around therapeutic range at 7.4 plan: continue with home meds;??tacrolimus at 4mg BID Continue home Ursodiol ? Patient was stable for discharge home; no changes to home meds. ? Objective Assessment and Plan ? Vital Signs?? Temperature: 97.9 DegF (07/08/24 15:39:00) Temperature Route: Oral (07/08/24 15:39:00) Pulse Rate: 71 bpm (07/08/24 15:39:00) Respiratory Rate: 18 br/min (07/08/24 15:39:00) Systolic Blood Pressure:??139 mm Hg??High (07/08/24 15:39:00) Diastolic Blood Pressure:??87 mm Hg??High (07/08/24 15:39:00) Blood pressure sites: Arm, left (07/08/24 15:39:00) Mean Arterial Pressure: 104 mm Hg (07/08/24 15:39:00) Pulse Pressure: 52 mm Hg (07/08/24 15:39:00) Oxygen Saturation: 100 % (07/08/24 15:39:00) Liters per Minute: 0 L/min (07/08/24 01:40:00) Mode of Delivery (Oxygen): Room air (07/08/24 15:39:00) Early Warning Score: 5 (07/08/24 15:41:32) ? . Physical Exam Constitutional: Alert, in no acute distress. Mental Status: Oriented to person, place and time. Head: Normocephalic. Respiratory: Clear to auscultation bilaterally. No wheezing, rales or rhonchi. Cardiovascular: S1 S2 regular. No murmurs, rubs or gallops.??RRR Gastrointestinal: Abdomen soft, non-tender, non-distended. Normal bowel sounds. Neurologic:??Moves all extremities spontaneously.?? Skin: No rashes or lesions. No jaundice Musculoskeletal: No cyanosis or clubbing. No gross deformities. No pitting edema on Right or Left [facility] Pending Results Transfuse RBCs ordered on 07/07/2024 Transfuse RBCs ordered on 07/07/2024 Follow-Up Appointments Added Follow Up ?Time Frame ?Comments Alis Marquis?Hematology will contact you to schedule follow up appointment, call to confirm Leonora Harris?2 to 3 weeks Post Discharge Care Discharge ?07/08/24 16:53:00 EST ?Order Comment:?? Discharge Prescriptions ?None, 07/08/24 16:53:00 EST ?Order Comment:?? Results Discharge Labs BLOOD BANK Blood Type O Positive ()?? 07/07/2024 11:45 Antibody Screen Negative ()?? 07/07/2024 11:45 RBC Unit ID [id number] ()?? 07/07/2024 22:29 RBC Available PT ()?? 07/07/2024 22:29 ?? BLOOD COUNT & DIFF WBC 3.1 k/mm3 (Low)?? 07/08/2024 05:25 RBC 2.39 m/mm3 (Low)?? 07/08/2024 05:25 Hgb 7.5 Gm/dL (Low)?? 07/08/2024 05:25 Hct 22.2 % (Low)?? 07/08/2024 05:25 MCV 92.9 femtoliters ()?? 07/08/2024 05:25 MCH 31.4 pg ()?? 07/08/2024 05:25 MCHC 33.8 Gm/dL ()?? 07/08/2024 05:25 Platelet Count 223 k/mm3 ()?? 07/08/2024 05:25 RDW-SD 70.5 femtoliters (High)?? 07/08/2024 05:25 MPV 10.6 femtoliters ()?? 07/08/2024 05:25 Nucleated RBC (Automated) 0.0 #/100 WBC'S ()?? 07/08/2024 05:25 Abs. NRBC 0.0 k/mm3 ()?? 07/08/2024 05:25 Abs. Neut 1.2 k/mm3 (Low)?? 07/08/2024 05:25 Abs. Lymph 0.7 k/mm3 (Low)?? 07/08/2024 05:25 Abs. Lassen 0.6 k/mm3 ()?? 07/08/2024 05:25 Abs. Eo 0.4 k/mm3 ()?? 07/08/2024 05:25 Abs. Baso 0.0 k/mm3 ()?? 07/08/2024 05:25 Neut % 40.5 % (Low)?? 07/08/2024 05:25 Lymph % 24.2 % ()?? 07/08/2024 05:25 Lassen % 18.6 % (High)?? 07/08/2024 05:25 Eos % 14.4 % (High)?? 07/08/2024 05:25 Baso % 0.0 % ()?? 07/08/2024 05:25 Imm Gran 2.3 % ()?? 07/08/2024 05:25 Abs. Imm Gran 0.1 k/mm3 ()?? 07/08/2024 05:25 ?? CHEM GENERAL Sodium 139 mmol/L ()?? 07/08/2024 05:25 Potassium 4.5 mmol/L ()?? 07/08/2024 05:25 Chloride 107 mmol/L ()?? 07/08/2024 05:25 Bicarbonate Level 24 mmol/L ()?? 07/08/2024 05:25 Anion Gap 8 mmol/L ()?? 07/08/2024 05:25 Glucose Level 91 mg/dL ()?? 07/08/2024 05:25 BUN 22 mg/dL ()?? 07/08/2024 05:25 Creatinine-Blood 1.40 mg/dL (High)?? 07/08/2024 05:25 Estimated GFR Creatinine 56 ML/MIN/1.73 M2 ()?? 07/08/2024 05:25 Calcium 9.4 mg/dL ()?? 07/08/2024 05:25 Phosphorus 3.7 mg/dL ()?? 07/08/2024 05:25 Magnesium 1.6 mg/dL ()?? 07/08/2024 05:25 Protein, Total 6.7 Gm/dL ()?? 07/07/2024 12:58 Albumin 3.9 Gm/dL ()?? 07/07/2024 12:58 AG Ratio 1.4 ()?? 07/07/2024 12:58 Alkaline Phosphatase 68 units/L ()?? 07/07/2024 12:58 AST (SGOT) 19 units/L ()?? 07/07/2024 12:58 ALT (SGPT) 24 units/L ()?? 07/07/2024 12:58 Bilirubin, Total 0.5 mg/dL ()?? 07/07/2024 12:58 ? TOXICOLOGY/TDM Tacrolimus Level 7.4 ng/mL ()?? 07/08/2024 05:25 ? URINE OTHER Est Creatinine Clearance 53.83 mL/min ()?? 07/08/2024 06:29 ? 33??minutes spent on discharge * Jonathan GASTON, Meredith Plaza: PERFORM Event Display: Patient Education/Instruction Authored Date: [id number] Inpatient Adult Discharge Instructions. [address] [address] Name: ROCAEL LAW : 1960?? Visit: 07/07/2024 14:20?? Current Date: 07/08/2024 17:38 ?? Account: [id number]?? Inpatient Adult Discharge Instructions We would like [...] and their families. Surveys are administered by [employer] ?? If further treatment with your primary care physician or another doctor is recommended, it is important for you to keep the appointment. Call your primary care physician or return to the Emergency Department immediately if your condition worsens, fails to improve, or new symptoms develop. If you need to find a doctor, you can call [facility] for a referral at [phone] or toll free at [phone] ([phone]) or log in to [email or web address].. ?? [facility], in keeping with [facility] guidance, no longer requires face masks [...] a health care zeinab of your choosing. [employer] is a website that allows you to securely view your medical information including your hospital discharge summary, office visit summaries, medications and follow-up visits. You can also request appointments, renew medications, and request access to your medical information using a health care zeinab of your choosing, or just ask a question. You are entitled to know the individuals who participated in your treatment. This information is available within your medical record and will be provided upon your request. You can enroll at [email or web address] or register d uring your next office visit. You have been discharged from [facility], Patient Care Unit: S3??. If you have any questions regarding these instructions, including results of studies pending, afteryou leave, please call us and we will be happy to assist you 02/12. [facility] Your Care Team Attending Physician Heriberto Alves MD?? Consulting Providers Heriberto Alves MD?? Discharging Providers Heriberto Alves MD Reason for Your Visit anemia?? Your Diagnosis General medical Tests Performed Below is a partial list of the tests performed during your hospitalization. You may have had other tests and procedures not included in this list. Please discuss all test results with your provider. Basic Metabolic Panel CBC w/ Differential Comprehensive Metabolic Panel H + H Magnesium Level Phosphorus Level TACROLIMUS Type and Screen Basic Metabolic Panel?? CBC w/ Differential?? Comprehensive Metabolic Panel?? Hgb + Hct (H + H)?? Magnesium Level?? Phosphorus Level?? Tacrolimus Level (TACROLIMUS)?? Transfuse RBCs?? Type and Screen?? Primary Care Provider Leonora Harris MD? Advance Directive Health Care Proxy on File Yes - Health Care Proxy Discharge Vitals Temperature: 97.9 DegF Height: 175 cm Pulse Rate: 71 bpm Weight: 70.8 kg Respiratory Rate: 18 br/min Body Mass Index: 23.12 kg/m2 Systolic Blood Pressure:??139 mm Hg??High Body surface area: 1.86 Diastolic Blood Pressure:??87 mm Hg??High ?? Oxygen Saturation: 100 % ?? Studies Pending All studies ordered during this hospital stay have been completed unless listed below. Please discuss all pending results with your provider listed above in these instructions. ?? Transfuse RBCs?? What to do next Instructions From Your Doctor ?? Orders? 07/08/24 16:53:00 EST?? Prescriptions??, ??07/08/24 16:53:00 EST?? You Need to Schedule the Following Appointments Follow Up with??Alis Marquis Why: Hematology will contact you to schedule follow up appointment, call to confirm Where: [address] [place] [address] Hem/[place] [address] [facility] (1) Follow Up with??Leonora Harris When:??Within 2 to 3 weeks Where: [address] [place] [id number] [facility] (1) Discharge Medications ROCAEL LAW :1960 Visit Date:07/07/2024 Medications: Please continue your medications until treatment is completed or stopped by your provider. Medications not listed below should be discontinued. Discuss any questions related to medications with your provider. What How Much When Instructions Next Dose Unchanged Darbepoetin Penelope (darbepoetin penelope 300 mcg/ 0.6mL injectable solution) 300 Microgram Subcutaneous Infusion Every 14 days Unchanged Magnesium Oxide (magnesium oxide 400 mg oral capsule) 1 capsule Oral Twice a day Unchanged Pantoprazole (pantoprazole 40 mg oral delayed release tablet) 1 tab(s) Oral Daily Unchanged sodium zirconium cyclosilicate (sodium zirconium cyclosilicate 5 g oral powder for reconstitution) 1 pack/packet Oral Daily Unchanged Tacrolimus (tacrolimus 1 mg oral capsule) 4 capsule Oral Twice a day Unchanged urea powder (urea 15 g oral powder for reconstitution) 15 gram Oral Daily Unchanged Ursodiol (ursodiol 300 mg oral capsule) 1 capsule Oral 3 times a day Prescription Given During Visit No new medications prescribed at time of discharge.?? Laboratory Results Below is a partial list of the most recent Laboratory test results done prior to this discharge. You may have had other tests and procedures not included in this list. Please discuss all test resultswith your provider. Est Creatinine Clearance - 53.83 mL/min (07/08/2024) RBC Available - PT (07/07/2024) RBC Unit ID - [id number] (07/07/2024) Basic Metabolic Panel (07/08/2024) ???Sodium - 139 mmol/L???Potassium - 4.5 mmol/L???Chloride - 107 mmol/L???Bicarbonate Level - 24 mmol/L???Anion Gap - 8 mmol/L???Glucose Level - 91 mg/dL???BUN - 22 mg/dL???Creatinine-Blood - 1.40 mg/dL???Estimated GFR Creatinine - 56 ML/MIN/1.73 M2???Calcium - 9.4 mg/dL CBC w/ Differential (07/08/2024) ???WBC - 3.1 k/mm3???RBC - 2.39 m/mm3???Hgb - 7.5 Gm/dL???Hct - 22.2 %???MCV - 92.9 femtoliters???MCH - 31.4 pg???MCHC - 33.8 Gm/dL???Platelet Count - 223 k/mm3???RDW-SD - 70.5 femtoliters???MPV - 10.6 femtoliters???Nucleated RBC (Automated) - 0.0 #/100 WBC'S???Abs. NRBC - 0.0 k/mm3???Abs. Neut - 1.2 k/mm3???Abs. Lymph - 0.7 k/mm3???Abs. Lassen - 0.6 k/mm3???Abs. Eo - 0.4 k/mm3???Abs. Baso - 0.0 k/mm3???Neut % - 40.5 %???Lymph % - 24.2 %???Lassen % - 18.6 %???Eos % - 14.4 %???Baso % - 0.0 %???Imm Gran - 2.3 %???Abs. Imm Gran - 0.1 k/mm3 Comprehensive Metabolic Panel (07/07/2024) ???Sodium - 143 mmol/L???Potassium - 5.1 mmol/L???Chloride - 112 mmol/L???Bicarbonate Level - 20 mmol/L???Anion Gap - 11 mmol/L???Glucose Level - 89 mg/dL???BUN - 24 mg/dL???Creatinine-Blood - 1.46 mg/dL???Estimated GFR Creatinine - 54 ML/MIN/1.73 M2???Calcium - 8.7 mg/dL???Protein, Total - 6.7 Gm/d L???Albumin - 3.9 Gm/dL???AG Ratio - 1.4???Alkaline Phosphatase - 68 units/L???AST (SGOT) - 19 units/L???ALT (SGPT) - 24 units/L???Bilirubin, Total - 0.5 mg/dL H + H (07/07/2024) ???Hgb - 6.1 Gm/dL???Hct - 18.5 % Magnesium Level (07/08/2024) ???Magnesium - 1.6 mg/dL Phosphorus Level (07/08/2024) ???Phosphorus - 3.7 mg/dL TACROLIMUS (07/08/2024) ???Tacrolimus Level - 7.4 ng/mL Type and Screen (07/07/2024) ???Blood Type - O Positive???Antibody Screen - Negative You will be contacted within 72 hours with your results. Allergies (NKA means No Known Allergies) NKA Problems Active Problems??(6) Chronic anemia?? 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 CKD (chronic kidney disease)?? GERD without esophagitis?? MDS - Myelodysplastic syndrome?? Status post liver transplant?? Education Materials Below is the list of Educational Leaflet Providered with your Discharge Instructions. Valuables and Belongings I fully understand and agree that [facility] accepts no responsibility for all my [...] witness Date for Pt to Sign Valuables/Belongings: 07/08/24 01:39:00 ?? Other Discharge Information ? Pulmonary Rehab [...] are strongly encouraged to quit. Please call [facility] at [phone] or [phone] ([phone]) or log in to [email or web address] for referrals to smoking cessation programs. ?? 519 Suicide & Crisis Lifeline is available 02/12 if you or someone you know needs to find a reason to keep living. By calling 421 you'll be connected to a skilled, trained counselor at a crisis center in your area. INPATIENT DISCHARGE INSTRUCTIONS SIGNATURE ROCAEL SIMPSON Location:[facility] Registration Date and Time:07/07/2024 14:20 EST Primary Care Physician: Kimberly PEREZ, Leonora Pérez, Attending Physician: Heriberto Alves MD, ROCAEL TOLLIVER, have received the above patient education materials/instructions and have verbalized understanding. If ambulance or transport services are being used I further acknowledge being given a choice of service. ?? If you need to contact me, please call me at this number: . Patient/Plant Chief Name: Patient/Plant Chief Signature: Relationship to Patient: Witness Name/Signature: Date: * Heriberto Alves MD: PERFORM, SIGN, VERIFY Event Display: Patient Education Handout Authored Date: [id number] Patient Care team information Care Team Personnel Name: Kendrick Caba RN Position: S RN Member Role: Primary Care Nurse Name: Vicky Medina RN Position: S RN Member Role: Primary Care Nurse Name: Meredith Castillo RN Position: S RN Member Role: Primary Care Nurse Name: Edwin Serna RN Position: S RN Member Role: Primary Care Nurse Name: Jeremy Torres RN Position: S RN Member Role: Primary Care Nurse Name: Marielos PEREZ, Iftikhar Position: [facility] Renal MD Member Role: Lifetime Consulting Physician Address: [address] [place], [place] [id number] [facility] [place], [place] [address] Telecom: Name: Lexi Muse RN Position: [facility] Onco RN Member Role: Primary Care Nurse Name: Haley Mtz RN Position: [facility] RN Member Role: Primary Care Nurse Name: Leonora Harris MD Position: Reference Physician Member Role: PCP Address: [place] [address]- Telecom: Care Team Related Persons Name: ROCAEL LAW Insurance Providers Guarantor name: ROCAEL LAW Health Plan Information #: 1 Payer: [facility] Member Number: [id number] Policy Number: NA Group Number: NA Health Plan Information #: 2 Payer: [facility] Member Number: [id number] Policy Number: NA Group Number: NA
--- OUTSIDE RECORDS SUMMARY | 2024-07-20 10:54 | XMS_ITS | Continuity of Care Document ---
Author Organization [facility] ter Address [address] [place] [id number]- Care Team Providers Care Diet Counselor Name Role Phone Maxine Victoria MD Primary Care Physician [phone] Encounter [facility] Date(s): 06/27/24 - 06/29/[address] [address]- Encounter Diagnosis Abdominal pain(Final) - 06/27/24 Discharge Disposition: A-D/C Home Attending Physician: Aurelio PEREZ, William Adan Admitting Physician: Thelma Messina MD Referring Physician: Not on Staff, Referring MD Encounter Type: Disch Obv Allergies, Adverse Reactions, Alerts No Known Allergies Immunizations Given and Recorded Vaccine Date Status Refusal Reason influenza virus vaccine, inactivated 02/25/24 Gaurav rded influenza virus vaccine, inactivated 01/25/22 Gaurav rded influenza virus vaccine, inactivated 01/11/20 Gaurav rded influenza virus vaccine, inactivated 02/07/17 Gaurav rded SARS-CoV-2(COVID-19)mRNA-LNP vac(pgx121) 02/25/24 Recorded SARS-CoV-2 mRNA ([id number]) vax 11/23/21 Recorded tetanus/diphtheria/pertussis, acel(Tdap) 07/17/21 Recorded [...] Active MDS - Myelodysplastic syndrome Confirmed Active Results Radiology Reports * Exam Date Time Procedure Performing Provider Status 06/27/24 10:21 AM US Liver Stefani Gutierres; Auth (Verified) Notes: (US Liver) Reason For Exam: Abdominal Pain;Other: RESULT: US Liver US Liver Hx of Present Illness: coming from [facility] for c o diffuse abd pain and n v. PMH of liver transplant 1 year ago.; Reason: Other:; Abdominal Pain; Clinical Question(s): Cholecystitis COMPARISON: Correlating with earlier same day CT abdomen and pelvis 06/27/2024. IMAGING TECHNIQUE: Grayscale and color Doppler ultrasound examination of the liver. FINDINGS: Liver: Normal in size. The echogenicity is slightly heterogeneous, slightly greater near the portalveins likely related to the edema seen on CT earlier today. Smooth hepatic contour. Main portal vein patent with normal hepatopetal direction of flow. 0.9 x 0.6 x 1 cm simple appearing hepatic cyst in the left lobe of the liver. 0.9 x 0.7 x 0.7 cm mostly simple appearing with a thin septation in the right lobe of the liver. Biliary Tree: No intrahepatic or extrahepatic bile duct dilation is identified. Common duct: 0.4 cm. The gallbladder is surgically absent. IMPRESSION: Simple hepatic cyst in the left lower liver. Another simple appearing cystic focus with a small thin septation in the right lobe of the liver, likely hepatic cyst. No suspicious liver lesion identified by ultrasound. The previously seen subtle peripheral hypodensity in the right hepatic lobe posterior to a cyst (onCT series 201, image 38) is not identified and remains indeterminate. Mildly heterogeneous echogenicity likely reflects periportal edema but is seen on CT. I have personally reviewed the images and I agree with this report. WSN: [id number] Ordering Physician: Matt Vaughan Dictated By: Cee Kaplna DO Dictated Date/Time: 06/27/24 10:34 a Reviewed By: Rufino Acosta MD Signed By: Rufino Acosta MD Signed Date/Time: 06/27/24 10:39 am Transcribed By: ZINA Transcribed Date/Time: 06/27/24 10:34 am * Exam Date Time Procedure Performing Provider Status 06/27/24 7:[address] Abd/Pelvis W/ IV Contrast Only Yesi Negrete; Auth (Verified) Notes: (CT Abd/Pelvis W/ IV Contrast Only) Reason For Exam: Large hernias, severe sudden onset pain 2hrs ago;Pain RESULT: CT Abd/Pelvis W/ IV Contrast Only CT Abd/Pelvis W/ IV Contrast Only Reason: Pain; Large hernias, severe sudden onset pain 2hrs ago; Clinical Question(s): Obstruction;.The patient has a history of cirrhosis secondary to chronic hepatitis C, liver transplant, myelodysplastic syndrome. TECHNIQUE: Spiral CT through the abdomen and pelvis with IV contrast formatted in 3 planes. 100 cc of Isovue 300 was administered intravenously. This study was performed without oral contrast. Weight-based protocol using automatic tube modulation was used to optimize exposure parameters. CTDIvol Body: 13.30 mGy, DLP Body: 743 mGy*cm. COMPARISON: None. FINDINGS: Shingle Shearing Machine Operator View Findings, Lines and Tubes: None. Visualized Chest: A regularly scattered blebs throughout the visualized portions of the lower lobesand the right middle lobe, measuring up to 3 cm in size. Postoperative changes right lung base. No consolidative opacity. No pleural effusion. The heart is normal in size. There appears to be aortic valve calcification, finding that can be seen with aortic stenosis. No pericardial effusion. Diaphragm: Normal. Liver: Multiple subcentimeter circumscribed low-density lesions likely represent cysts (in the absence of known malignancy). Several ill-defined and indeterminate hypodensities which are slightly higher in attenuation relative to the hepatic cysts, the largest in the right hepatic lobe near the anterior hepatic capsule measuring 1.6 x 1.3 x 1.6 cm (image 38 series 201). Moderate periportal edema. Gallbladder: Absent consistent with prior cholecystectomy. Bile ducts: Mild intrahepatic bile duct dilation. The common bile duct is within normal limits. Spleen: Severe splenomegaly measuring up to 20.1 cm. Pancreas: Normal. Adrenal glands: Normal. Kidneys and ureters: No hydronephrosis, stones, or suspicious masses. Bladder: Normal. Reproductive organs: Unremarkable. Stomach, small bowel, and large bowel: The stomach, small bowel and large bowel are normal in caliber. No evidence of bowel obstruction. No abnormal bowel wall thickening or surrounding fat strandingto suggest acute inflammatory process of the bowel. Appendix: Normal. Peritoneum and retroperitoneum: No ascites or pneumoperitoneum. No omental or mesenteric lesions. Lymph nodes: No enlarged lymph nodes. Blood vessels: Mild vascular calcifications but no aneurysm. No evidence of venous thrombosis. Splenic varices. Abdominal and pelvic wall: Rectus diastasis of the upper abdominal wall with a loop of transverse colon slightly protruding into the area of diastasis. This area of diastasis measures up to 7.2 cm (image 49 series 201), with very broad neck and shallow depth. Lateral abdominal wall presumed incisional hernia measuring up to 5.6 cm AP (image 71 series 201) and 3.6 cm craniocaudal and the neck (series 202, image 41), and expands to 14 cm AP by 13 cm craniocaudal by 7 cm transverse. This hernia contains otherwise normal-appearing small bowel and mesentericfat without evidence of obstruction or inflammation. Tiny fat-containing umbilical hernia. Bones: No acute abnormality. Grade 1 anterolisthesis of L5 on S1 with bilateral pars defects. IMPRESSION: Large, presumed incisional hernia in the right lateral abdominal wall beneath the inferior margin of the transplant right hepatic lobe which contain loops of otherwise normal-appearing small bowel and mesenteric fat. Small, shallow, broad-based rectus diastases into which a portion of colon slightly bulges, with the colon otherwise normal. No evidence of bowel obstruction. Irregularly shaped pulmonary cysts/blebs in the visualized portions of the lower lobes bilaterally and the right middle lobe. Nonspecific but could be seen with cystic lung disease such as lymphangioleiomyomatosis or Blanquita Lucina Isrrael. Irregular hypodensity in the right hepatic lobe measuring up to 1.6 cm. This may represent hemangioma or an area of focal fat deposition, but is incompletely characterized. Consider nonemergent dedicated ultrasound or MRI for further evaluation. There is moderate periportal edema which can be seen with volume overload or inflammatory processes. Severe splenomegaly measuring up to 20.1 cm. Splenic varices. Cannot exclude persistent portal hypertension. I have personally reviewed the images and I agree with this report. WSN: [id number] Ordering Physician: Niko Alston Dictated By: Saira Muro MD Dictated Date/Time: 06/27/24 8:17 am Reviewed By: Rufino Acosta MD Signed By: Rufino Acosta MD Signed Date/Time: 06/27/24 8:22 am Transcribed By: ZINA Transcribed Date/Time: 06/27/24 8:17 am Vital Signs Most recent to oldest [Reference Range]: 1 2 3 Height 175 cm (06/29/24 4:54 AM) 175 cm (06/28/24 8:31 PM) 175 cm (06/28/24 2:46 PM) Weight 73.8 kg (06/28/24 2:46 PM) Oxygen Saturation [94-100 %] 100 % (06/29/24 4:54 AM) 99 % (06/28/24 8:31 PM) 100 % (06/28/24 2:46 PM) Pulse Rate [55-90 bpm] 87 bpm (06/29/24 4:54 AM) 83 bpm (06/28/24 8:31 PM) 75 bpm (06/28/24 2:46 PM) Body Mass Index [18.5-24.99 kg/m2] 24.1 kg/m2 (06/28/24 2:46 PM) Blood Pressure [90-138/55-84 mm Hg] 125/78mm Hg (06/29/24 4:54 AM) 115/84mm Hg (06/28/24 8:31 PM) 137/86mm Hg (06/28/24 2:46 PM) Respiratory Rate [16-30 br/min] 16 br/min (06/29/24 4:54 AM) 16 br/min (06/28/24 8:31 PM) 16 br/min (06/28/24 2:46 PM) Temperature [96.8-100.4 DegF] 98.6 DegF (06/29/24 4:54 AM) 99 DegF (06/28/24 8:31 PM) 98.2 DegF (06/28/24 2:46 PM) Mode of Delivery (Oxygen) Room air (06/29/24 4:54 AM) Room air (06/28/24 8:31 PM) Room air (06/28/24 2:46 PM) Blood pressure sites Arm, right (06/29/24 4:54 AM) Arm, left (06/28/24 8:31 PM) Arm, left (06/28/24 2:46 PM) Temperature Route Oral (06/29/24 4:54 AM) Oral (06/28/24 8:31 PM) Oral (06/28/24 2:46 PM) Dry Weight 73.8 kg (06/28/24 2:46 PM) Social History Social History Type Response Smoking Status Former smoker, quit more than 30 days ago; Type: Cigarettes entered on: 06/03/24 Sex Male Sex Representation Male (finding) Admission evaluation note * Lary PEREZ, Merly Dawson: MODIFY, PERFORM Event Display: Admission Note Authored Date: Patient: ??ROCAEL LAW ? Age:??64 Years?Sex:??Male?:??1960?? Chief Complaint/Reason for Consultation Pt coming from home w/ abd pain. did not provide details to EMS regarding location of abd pain, associated sx or triggers, when the pain started, etc. hx liver tx, cirrhosis placed on 2L O2 for comfort by EMS History of Present Illness 64-year-old male patient who presents to the emergency department for evaluation abdominal pain.?? 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 Patient was recently admitted to our facility for symptomatic anemia s/p 2 unit packed red blood cells.?? He reports right sided abdominal pain, not radiated, not associated with nausea or vomiting.?? He points at hernia on the right side which seems to be a source of the pain.?? Reports 2 hernia spots around the scar sensitive.?? Transplant surgery.?? He denies nausea, vomiting, constipation, shortness of breath, or any other associated symptoms.?? Upon presentation to the emergency department today he was hemodynamically blood pressure 1/59, afebrile, maintaining satsat 98% on room air.?? Initial blood work with chronic bicytopenia with white blood count of 3.1, hemoglobin 7.0 (baseline), creatinine 1.63 (unknown baseline), mild elevated bilirubin at 1.4 otherwise unremarkable.?? He had a CT scan abdomen/pelvis with large, presumed incisional hernia in the right lateral abdominal wall.?? The inferior margin of the transplant right hepatic lobe which contains loops of normal-appearing small bowel and mesenteric fat without evidence of bowel obstruction.?? Pulmonary cysts/polyps noted over the bilateral lower lobes and right middle lobe right hepatic lobe irregular irregularity measuring up to 1.6 cm which may represent hemangioma or for deposition, modera te peritoneal edema, severe splenomegaly measuring up to 20.1 cm.?? Case was discussed with??delivery coordinator at [place]??who was agreeable for admission for serial abdominal exam. ??2 possibilities are biliary leak versus cholangitis. ??Both seems to be unlikely given his presentation.?? Upon my evaluation, he is lying comfortably without any signs of distress, he was asleep??and the movement there were, up??he started complaining of??abdominal pain. Review of Systems A full review of systems was completed and is otherwise negative except as mentioned in history of present illness. Objective ? Vital Signs?? Temperature: 98 DegF (06/27/24 05:55:00) Temperature Route: Oral (06/27/24 05:55:00) Pulse Rate: 58 bpm (06/27/24 14:38:00) Respiratory Rate: 18 br/min (06/27/24 16:47:00) Systolic Blood Pressure:??162 mm Hg??High (06/27/24 14:38:00) Diastolic Blood Pressure: 62 mm Hg (06/27/24 14:38:00) Blood pressure sites: Arm, left (06/27/24 14:38:00) Mean Arterial Pressure: 87 mm Hg (06/27/24 05:55:00) Pulse Pressure: 83 mm Hg (06/27/24 05:55:00) Oxygen Saturation: 98 % (06/27/24 14:38:00) Mode of Delivery (Oxygen): Room air (06/27/24 14:38:00) Early Warning Score: 4 (06/27/24 16:47:56) ? Intake/Output? No Data Available ? Physical Exam General Appearance: The patient is in NAD. Head: atraumatic EENT: MMM, no scleral icterus Cardiovascular: RRR no MRG Respiratory:?? Breath sounds clear to auscultation bilaterally. No wheezing. room air. GI: Soft.?? Tender large incisional hernia??on the right side of the abdomen.?? Midline incisional hernias nontender.?? Large??transverse abdominal scar MS:?? No edema or erythema in the lower extremities. Peripheral sensation intact. Skin: warm, dry, no rashes Neuro:?? No slurred speech.?? Patient seen moving their upper and lower extremities independently. Psych: Anxious Lines: Peripheral IV in place. Assessment/Plan Diagnoses Abdominal pain ??(R10.9) Abdominal pain ??(R10.9) Anemia ??(D64.9) Bicytopenia ??(D75.89) GERD without esophagitis ??(K21.9) Hepatitis C ??(B19.20) Hyperbilirubinemia ??(E80.6) Incisional hernia ??(K43.2) Leukopenia ??(D72.819) Myelodysplastic syndrome ??(D46.9) Status post liver transplant ??(Z94.4) ?? Abdominal pain (R10.9) Incisional hernia (K43.2) Hyperbilirubinemia (E80.6) ? Patient with a past medical history of liver cirrhosis s/p??liver transplant??with large??abdominal scar and 2 incisional hernias.??He reports??pain at the hernia site. He denies vomiting, nausea,??severe abdominal pain,??diarrhea, or systemic symptoms. CT scan abdomen/pelvis with??normal EF.??Bowel MD??incisional hernia without evidence of bowel obstruction. Hyperbilirubinemia with tight high total bilirubin at 1.4. Lactate within normal limit. No leukocytosis on the left. Was admitted to medicine for??further management evaluation.??Unclear the source of the abdominal pain. I will treat with multimodal??pain meds. Continue to monitor abdominal exam. Does not seem to have??cholangitis or biliary leak given his??presentation and lack of??systemic symptoms. ?? Myelodysplastic syndrome (D46.9) Bicytopenia (D75.89) Leukopenia (D72.819) Anemia (D64.9) ? Known MDS.?? - Follow up outpatient?? Chronic anemia, transfusion dependent. Blood counts are stable. Continue to monitor. Known MDS.? Status post liver transplant (Z94.4) Hepatitis C (B19.20) ? Liver transplant in July 2023??at [place], [facility].??Care is in [facility] at??[place]??with??regular visits to [place]??DC. Tacrolimus dose recently changes to 4mg BID.?? -Continue tacrolimus at 4mg BID?? -Transplant team, last number listed [phone] -Ensure follow up with Transplant Team -Continue Ursodiol ?? GERD without esophagitis (K21.9):??Continue PPI ?? VTE Prophylaxis:??Lovenox ?VTE Prophylaxis Assessment:??VTE Prophylaxis Ordered ?? Code Status:??Full code ?Order Code Status:??Code Status Ordered ? Histories Allergies Allergies ?(Active and Proposed [...] procedures ? Social History Alcohol Details:??Use: Past. Tobacco [...] a day ? Results Recent Labs BLOOD COUNT & DIFF WBC 3.1 k/mm3 (Low)?? 06/27/2024 06:45 RBC 2.31 m/mm3 (Low)?? 06/27/2024 06:45 Hgb 7.0 Gm/dL (Low)?? 06/27/2024 06:45 Hct 20.5 % (Low)?? 06/27/2024 06:45 MCV 88.7 femtoliters ()?? 06/27/2024 06:45 MCH 30.3 pg ()?? 06/27/2024 06:45 MCHC 34.1 Gm/dL ()?? 06/27/2024 06:45 Platelet Count 221 k/mm3 ()?? 06/27/2024 06:45 RDW-SD 59.7 femtoliters (High)?? 06/27/2024 06:45 MPV 11.0 femtoliters ()?? 06/27/2024 06:45 Nucleated RBC (Automated) 0.0 #/100 WBC'S ()?? 06/27/2024 06:45 Abs. NRBC 0.0 k/mm3 ()?? 06/27/2024 06:45 Abs. Neut 2.0 k/mm3 ()?? 06/27/2024 06:45 Abs. Lymph 0.4 k/mm3 (Low)?? 06/27/2024 06:45 Abs. [place] 0.4 k/mm3 ()?? 06/27/2024 06:45 Abs. Eo 0.2 k/mm3 ()?? 06/27/2024 06:45 Abs. Baso 0.0 k/mm3 ()?? 06/27/2024 06:45 Neut % 65.9 % ()?? 06/27/2024 06:45 Lymph % 13.1 % (Low)?? 06/27/2024 06:45 [place] % 14.4 % (High)?? 06/27/2024 06:45 Eos % 5.9 % ()?? 06/27/2024 06:45 Baso % 0.0 % ()?? 06/27/2024 06:45 Imm Gran 0.7 % ()?? 06/27/2024 06:45 Abs. Imm Gran 0.0 k/mm3 ()?? 06/27/2024 06:45 ?? CHEM GENERAL Sodium 134 mmol/L ()?? 06/27/2024 06:45 Potassium 4.3 mmol/L ()?? 06/27/2024 06:45 Chloride 102 mmol/L ()?? 06/27/2024 06:45 Bicarbonate Level 20 mmol/L (Low)?? 06/27/2024 06:45 Anion Gap 12 mmol/L ()?? 06/27/2024 06:45 Glucose Level 133 mg/dL (High)?? 06/27/2024 06:45 BUN 36 mg/dL (High)?? 06/27/2024 06:45 Creatinine-Blood 1.63 mg/dL (High)?? 06/27/2024 06:45 Estimated GFR Creatinine 47 ML/MIN/1.73 M2 ()?? 06/27/2024 06:45 Calcium 9.5 mg/dL ()?? 06/27/2024 06:45 Protein, Total 7.4 Gm/dL ()?? 06/27/2024 06:45 Albumin 4.4 Gm/dL ()?? 06/27/2024 06:45 AG Ratio 1.5 ()?? 06/27/2024 06:45 Alkaline Phosphatase 81 units/L ()?? 06/27/2024 06:45 Lipase, Serum/Plasma 16 units/L ()?? 06/27/2024 06:45 AST (SGOT) 22 units/L ()?? 06/27/2024 06:45 ALT (SGPT) 20 units/L ()?? 06/27/2024 06:45 Bilirubin, Total 1.4 mg/dL (High)?? 06/27/2024 06:45 Bilirubin, Direct 0.4 mg/dL (High)?? 06/27/2024 06:45 Bilirubin, Indirect 1.0 mg/dL (High)?? 06/27/2024 06:45 Lactate 1.6 mmol/L ()?? 06/27/2024 06:45 ?? TOXICOLOGY/TDM Tacrolimus Level 7.7 ng/mL ()?? 06/27/2024 09:22 ?? UA/URINALYSIS Appear/Color, Urine LIGHT YELLOW ()?? 06/27/2024 06:40 Specific [place], Urine 1.013 ()?? 06/27/2024 06:40 pH, Urine 7.5 ()?? 06/27/2024 06:40 Albumin, Urine TRACE (Abnormal)?? 06/27/2024 06:40 Glucose, Urine TRACE (Abnormal)?? 06/27/2024 06:40 Ketones, Urine NEGATIVE ()?? 06/27/2024 06:40 Bilirubin, Urine NEGATIVE ()?? 06/27/2024 06:40 Hemoglobin, Urine NEGATIVE ()?? 06/27/2024 06:40 Nitrite, Urine NEGATIVE ()?? 06/27/2024 06:40 Leukocyte, Urine NEGATIVE ()?? 06/27/2024 06:40 Urobilinogen NORMAL mg/dL ()?? 06/27/2024 06:40 WBC's, Urine 1 /HPF ()?? 06/27/2024 06:40 RBC's, Urine 2 /HPF ()?? 06/27/2024 06:40 Bacteria SLIGHT HPF (Abnormal)?? 06/27/2024 06:40 Hyaline Cast 1 LPF ()?? 06/27/2024 06:40 Mucus SLIGHT /LPF ()?? 06/27/2024 06:40 ? Hospital Progress note * Mo Medina: PERFORM, SIGN, VERIFY Event Display: Progress Note Hospital Authored Date: Patient: ROCAEL LAW Age: 64 years Sex: Male : 1960 Associated Diagnoses: None Author: Mo Medina Findings Evaluation Patient alert and oriented and left unit in wheelchair and being picked up by son per patient. Patient discharge instructions completed and patient sent home. . Discharge Information Case Management Discharge Plan : Case Management Discharge Plan Data 06/29/2024 11:48 EST Discharge Level of Care at [facility]charge [facility] 06/24/2024 16:42 EST Discharge Level of Care at [facility]charge Home[facility] * Mo Medina: PERFORM, SIGN, VERIFY Event Display: Progress Note Hospital Authored Date: [id number] Patient: ROCAEL LAW Age: 64 years Sex: Male : 1960 Associated Diagnoses: None Author: Mo Medina Findings Problem Related to Alteration in Gastrointestinal : Alteration in Gastrointestinal Func/new 06/29/2024 9:00 EST Alteration in GI status Related to Other: Incisional Hernia Goals & Outcomes, Gastrointestinal Establish a regular pattern of elimination for pt, Nutritional intake is adequate for metabolic needs, Pt will achieve normal/improved fluid balance, Pt will have a bowel movement prior to discharge, Pt will maintain adequate GI function appropriate for pt, Ptwill maintain normal elimination patterns, Pt will resume/maintain adequate hemodynamic status, Pt w ill tolerate age appropriate diet prior to discharge Interventions, Gastrointestinal Assess/monitor abdomen for distention, tenderness, Assess/monitor pt for nausea, vomiting BH Goals/Interventions, Gastrointestinal Yes Gastrointestinal, Problem Start 06/28/2024 14:59 Reviewed plan with, Gastrointestinal Patient Patient Progression, Gastrointestinal Pt progressing according to plan . Nursing Data Vital Signs : VITAL SIGNS SECTION 06/29/2024 4:54 EST Early Warning Score 1.00 06/29/2024 4:54 EST Temperature 98.6 DegF Temperature Route Oral Pulse Rate 87 bpm Respiratory Rate 16 br/min Systolic Blood Pressure 125 mm Hg Diastolic Blood Pressure 78 mm Hg Blood pressure sites Arm, right Mean Arterial Pressure 94 mm Hg Pulse Pressure 47 mm Hg Oxygen Saturation 100 % Mode of Delivery (Oxygen) Room air . Evaluation Patient alert and oriented x4 patient currently resting in bed patient stated no pain right now butprevious pain noted to abd right side. Patient skin intact. Patient resting comfortably in bed. . Discharge Information Case Management Discharge Plan : Case Management Discharge Plan Data 06/24/2024 16:42 EST Discharge Level of Care at [facility]charge Home[facility] * Aurelio PEREZ, William Adan: PERFORM Event Display: Progress Note Hospital Authored Date: [id number] Patient: ??ROCAEL LAW ? Age:??64 Years?Sex:??Male?:??1960?? Subjective Hx noted intermittent pain to R side of abdo at site of hernia for 2 days no vomiting/constipation ?? Cr improving ?? I reviewed images with GI fellow no biliary dilatation mild elevation in unconjugated bili but transaminases normal some mesenteric stranding at site of hernia advised general surgery consultation which I requested Review of Systems ?Constitutional: no fevers/chills ?Eyes: no pain, no vision changes ?ENT: no ear pain, no change in hearing ?Cardiovasc: no chest pain, no palpitations, no PND, no orthopnoea ?Resp: no cough, no sputum, no haemoptysis, no dyspnoea ?GI: as above Objective Measurements?? Height: 175 cm (06/28/24) ?? Vital Signs?? Temperature: 98.2 DegF (06/28/24 14:29:00) Temperature Route: Oral (06/28/24 14:29:00) Pulse Rate: 75 bpm (06/28/24 14:29:00) Respiratory Rate: 16 br/min (06/28/24 14:29:00) Systolic Blood Pressure: 137 mm Hg (06/28/24 14:29:00) Diastolic Blood Pressure:??86 mm Hg??High (06/28/24 14:29:00) Blood pressure sites: Arm, left (06/28/24 14:29:00) Mean Arterial Pressure: 103 mm Hg (06/28/24 14:29:00) Pulse Pressure: 51 mm Hg (06/28/24 14:29:00) Oxygen Saturation: 100 % (06/28/24 14:29:00) Mode of Delivery (Oxygen): Room air (06/28/24 14:29:00) Early Warning Score: 1 (06/28/24 14:30:18) ? Intake/Output? No Data Available ? Physical Exam Gen: comfortable, well: HEENT: normocephalic, atraumatic Chest: CTA, no wheeze/crackles CVS: systolic murmur, no JVD Abdo: soft, 2 large incisional hernias. some tenderness to R site of abdo at??site of hernia. 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 ?? Abdominal pain (R10.9) Incisional hernia (K43.2) Hyperbilirubinemia (E80.6) Patient with a past medical history of liver cirrhosis s/p??liver transplant??with large??abdominalscar and 2 incisional hernias.??He reports??pain at the hernia site. He denies vomiting, nausea,??severe abdominal pain,??diarrhea, or systemic symptoms. CT scan abdomen/pelvis with??normal EF.??Bowel MD??incisional hernia without evidence of bowel obstruction. Hyperbilirubinemia 1.4 though mostly inconjugated Lactate within normal limit. No leukocytosis I discussed with GI fellow who reviewed labs and imaging recommended surgical consult general surgery reviewed and recommended no urgent intervention but to follow up with primary surgeon in [place] I will commence diet if patient tolerating will plan??for discharge ?? Myelodysplastic syndrome (D46.9) Bicytopenia (D75.89) Leukopenia (D72.819) Anemia (D64.9) Known MDS.?? Follow up outpatient?? Chronic anemia, transfusion dependent. Blood counts are stable. Continue to monitor. Known MDS.? Status post liver transplant (Z94.4) Hepatitis C (B19.20) Liver transplant in July 2023??at [facility].??Care is in [facility] at??[place]??with??regular visits to [place]??DC. Tacrolimus dose recently changed to 4mg BID.?? Continue tacrolimus at 4mg BID?? Transplant team, last number listed [phone] Ensure follow up with Transplant Team Continue Ursodiol ?? GERD without esophagitis (K21.9):??Continue PPI ?? VTE Prophylaxis:??Lovenox ?VTE Prophylaxis Assessment:??VTE Prophylaxis Ordered ?? Code Status:??Full code ?Order Code Status:??Code Status Ordered ? Consult note * Geoff PEREZ, Truman Alfonso: PERFORM Event Display: Consultation Note Authored Date: [id number] Patient: ??ROCAEL LAW ? Age:??64 Years?Sex:??Male?:??1960?? Chief Complaint Pt coming from home w/ abd pain. did not provide details to EMS regarding location of abd pain, associated sx or triggers, when the pain started, etc. hx liver tx, cirrhosis placed on 2L O2 for comfort by EMS Reason for Consultation Right flank hernia History of Present Illness 64-year-old man with a significant past medical history of??hepatitis C status post liver transplant in [place]??July 2023, with course complicated by??biliary stricturing requiring??endoscopic stenting, and abdominal wall hernias.?? The remainder of his past medical history is notable for CKD, myelodysplastic syndrome, anemia with multiple admissions requiring transfusion. ??He didhave a appendectomy and a??biopsy of a lung nodule in??April 2023. ??Patient reports that on Friday he had??right-sided flank pain.?? It was sudden in onset.?? When he pushed on his belly it felt better. ??He had nausea when the pain was at its worst but did not of??any vomiting. ??He denies anyfevers or chills. ??Throughout all this he has been passing gas and bowel movements.?? When asked about the hernia the patient said that his surgical team at [place] were planning to follow him upat about 1 year after surgery??to discuss hernia repair. ??He has a follow-up appointment for July? ?in about 1 month. ?Past Medical History: Hepatitis C??cirrhosis CKD 3 Mild spastic syndrome ?Past Surgical History: Orthotopic liver transplant July 2023 Multiple endoscopic??procedures for biliary stenting Biopsy of a lung nodule April 2023 Appendectomy Denies any previous??hernia surgeries ?Medications:?Darbepoetin Penelope (darbepoetin penelope 300 mcg/0.6 mL injectable [...] capsule By Mouth 3 times a day ?Allergies:?Allergies ?(Active and Proposed Allergies Only) NKA? (Severity: Unknown severity, Onset: Unknown) ?Family History: Denies family history of??liver transplant, hernia, liver disease ?Social History:?? Former smoker, quit 1 year ago after his transplant Nondrinker??because of his transplant No drugs ?Review of systems:?Constitutional: No fevers, chills, or fatigue ?Eyes: No changes in vision ?ENT: No difficulty swallowing or hemoptysis ?Cardiovascular: No chest pain or palpitations ?Respiratory: no SOB, cough or wheezes ?Gastrointestinal: no vomiting, diarrhea, or constipation, intermittent right-sided abdominal pain without obstructive symptoms. ?Genitourinary: No dysuria ?Musculoskeletal:??No stiffness or swelling ?Integumentary: no rashes ?Neurological: no headaches or numbness ?Endocrine: no excessive thirst or sweating ?All others negative as per HPI Consult requested by: Dr. Carey Consulting physician: Dr. Cantu Reason for consultation: Evaluation for hernia repair. Physical Exam Vitals & Measurements T:??98.2?F?? TMIN:??98.2?F?? TMAX:??98.9?F?? HR:??75??(Peripheral)?? RR:??16?? BP:??137/86?? SpO2:??100%? Constitutional: No acute distress, awake, alert and oriented x3 Cardiovascular: Regular rate and rhythm, +S1/S2, no murmurs, rubs, or gallops, no edema, 2+ dorsalis pedia bilaterally Respiratory: Clear to auscultation bilaterally, no wheezes, rales, rhonchi, or crackles Abdomen: soft, non-tender, non-distended, chevron type incision in the??upper abdomen, incisional hernia in the epigastrium approximately 2 x 2 cm soft, reducible. ??Flank hernia in the right??aspectof the chevron incision??with a fascial defect of approximately??3 cm although it is difficult to discern fully.?? Soft, reducible??but immediately recurs. Gastrointestinal: bowel sounds present Genitourinary: no CVA tenderness Musculoskeletal: no calf tenderness Neurological: no loss of sensation bilaterally Lymphatic: no lymphedema or hepatosplenomegaly ?? Recent Labs:BLOOD COUNT & DIFF WBC 5.5 k/mm3 ()?? 06/28/2024 06:28 RBC 2.74 m/mm3 (Low)?? 06/28/2024 06:28 Hgb 8.4 Gm/dL (Low)?? 06/28/2024 06:28 Hct 24.0 % (Low)?? 06/28/2024 06:28 MCV 87.6 femtoliters ()?? 06/28/2024 06:28 MCH 30.7 pg ()?? 06/28/2024 06:28 MCHC 35.0 Gm/dL ()?? 06/28/2024 06:28 Platelet Count 273 k/mm3 ()?? 06/28/2024 06:28 RDW-SD 59.0 femtoliters (High)?? 06/28/2024 06:28 MPV 10.2 femtoliters ()?? 06/28/2024 06:28 Nucleated RBC (Automated) 0.0 #/100 WBC'S ()?? 06/28/2024 06:28 Abs. NRBC 0.0 k/mm3 ()?? 06/28/2024 06:28 Abs. Neut 2.0 k/mm3 ()?? 06/27/2024 06:45 Abs. Lymph 0.4 k/mm3 (Low)?? 06/27/2024 06:45 Abs. Fulton 0.4 k/mm3 ()?? 06/27/2024 06:45 Abs. Eo 0.2 k/mm3 ()?? 06/27/2024 06:45 Abs. Baso 0.0 k/mm3 ()?? 06/27/2024 06:45 Neut % 65.9 % ()?? 06/27/2024 06:45 Lymph % 13.1 % (Low)?? 06/27/2024 06:45 Fulton % 14.4 % (High)?? 06/27/2024 06:45 Eos % 5.9 % ()?? 06/27/2024 06:45 Baso % 0.0 % ()?? 06/27/2024 06:45 Imm Gran 0.7 % ()?? 06/27/2024 06:45 Abs. Imm Gran 0.0 k/mm3 ()?? 06/27/2024 06:45 ?? CHEM GENERAL Sodium 134 mmol/L ()?? 06/28/2024 06:28 Potassium 5.1 mmol/L ()?? 06/28/2024 06:28 Chloride 98 mmol/L ()?? 06/28/2024 06:28 Bicarbonate Level 23 mmol/L ()?? 06/28/2024 06:28 Anion Gap 13 mmol/L ()?? 06/28/2024 06:28 Glucose Level 116 mg/dL (High)?? 06/28/2024 06:28 BUN 23 mg/dL ()?? 06/28/2024 06:28 Creatinine-Blood 1.33 mg/dL (High)?? 06/28/2024 06:28 Estimated GFR Creatinine 60 ML/MIN/1.73 M2 ()?? 06/28/2024 06:28 Calcium 10.2 mg/dL ()?? 06/28/2024 06:28 Magnesium 1.7 mg/dL ()?? 06/28/2024 06:28 Protein, Total 8.2 Gm/dL ()?? 06/28/2024 06:28 Albumin 4.7 Gm/dL ()?? 06/28/2024 06:28 AG Ratio 1.3 ()?? 06/28/2024 06:28 Alkaline Phosphatase 93 units/L ()?? 06/28/2024 06:28 Lipase, Serum/Plasma 16 units/L ()?? 06/27/2024 06:45 AST (SGOT) 25 units/L ()?? 06/28/2024 06:28 ALT (SGPT) 23 units/L ()?? 06/28/2024 06:28 Bilirubin, Total 1.5 mg/dL (High)?? 06/28/2024 06:28 Bilirubin, Direct 0.4 mg/dL (High)?? 06/27/2024 06:45 Bilirubin, Indirect 1.0 mg/dL (High)?? 06/27/2024 06:45 Lactate 1.6 mmol/L ()?? 06/27/2024 06:45 ?? TOXICOLOGY/TDM Tacrolimus Level 7.7 ng/mL ()?? 06/27/2024 09:22 ?? UA/URINALYSIS Appear/Color, Urine LIGHT YELLOW ()?? 06/27/2024 06:40 Specific [place], Urine 1.013 ()?? 06/27/2024 06:40 pH, Urine 7.5 ()?? 06/27/2024 06:40 Albumin, Urine TRACE (Abnormal)?? 06/27/2024 06:40 Glucose, Urine TRACE (Abnormal)?? 06/27/2024 06:40 Ketones, Urine NEGATIVE ()?? 06/27/2024 06:40 Bilirubin, Urine NEGATIVE ()?? 06/27/2024 06:40 Hemoglobin, Urine NEGATIVE ()?? 06/27/2024 06:40 Nitrite, Urine NEGATIVE ()?? 06/27/2024 06:40 Leukocyte, Urine NEGATIVE ()?? 06/27/2024 06:40 Urobilinogen NORMAL mg/dL ()?? 06/27/2024 06:40 WBC's, Urine 1 /HPF ()?? 06/27/2024 06:40 RBC's, Urine 2 /HPF ()?? 06/27/2024 06:40 Bacteria SLIGHT HPF (Abnormal)?? 06/27/2024 06:40 Hyaline Cast 1 LPF ()?? 06/27/2024 06:40 Mucus SLIGHT /LPF ()?? 06/27/2024 06:40 ? * Final Report * ?? Reason For Exam Large hernias, severe sudden onset pain 2hrs ago;Pain ?? RESULT: CT Abd/Pelvis W/ IV Contrast Only CT Abd/Pelvis W/ IV Contrast Only? Reason: Pain; Large hernias, severe sudden onset pain 2hrs ago; Clinical Question(s): Obstruction;.The patient has a history of cirrhosis secondary to chronic hepatitis C, liver transplant, myelodysplastic syndrome. ?? TECHNIQUE: Spiral CT through the abdomen and pelvis with IV contrast formatted in 3 planes. 100 cc of Isovue 300 was administered intravenously. This study was performed without oral contrast. Weight-based protocol using automatic tube modulation was used to optimize exposure parameters.? CTDIvol Body: 13.30 mGy, ??DLP Body: 743 mGy*cm. ? COMPARISON: None. ?? FINDINGS:? Shingle Shearing Machine Operator View Findings, Lines and Tubes: None. ?? Visualized Chest: A regularly scattered blebs throughout the visualized portions of the lower lobesand the right middle lobe, measuring up to 3 cm in size. Postoperative changes right lung base. No consolidative opacity. No pleural effusion. The heart is normal in size. There appears to be aortic valve calcification, finding that can be seen with aortic stenosis. No pericardial effusion. ?? Diaphragm: Normal. ?? Liver: Multiple subcentimeter circumscribed low-density lesions likely represent cysts (in the absence of known malignancy). Several ill-defined and indeterminate hypodensities which are slightly higher in attenuation relative to the hepatic cysts, the largest in the right hepatic lobe near the anterior hepatic capsule measuring 1.6 x 1.3 x 1.6 cm (image 38 series 201). Moderate periportal edema. ?? Gallbladder: Absent consistent with prior cholecystectomy. ?? Bile ducts: Mild intrahepatic bile duct dilation. The common bile duct is within normal limits. ?? Spleen: Severe splenomegaly measuring up to 20.1 cm. ?? Pancreas: Normal. ?? Adrenal glands: Normal. ?? Kidneys and ureters: No hydronephrosis, stones, or suspicious masses. ?? Bladder: Normal. ?? Reproductive organs: Unremarkable. ?? Stomach, small bowel, and large bowel: The stomach, small bowel and large bowel are normal in caliber. No evidence of bowel obstruction. No abnormal bowel wall thickening or surrounding fat strandingto suggest acute inflammatory process of the bowel. ?? Appendix: Normal. ?? Peritoneum and retroperitoneum: No ascites or pneumoperitoneum. No omental or mesenteric lesions. ?? Lymph nodes: No enlarged lymph nodes. ?? Blood vessels: Mild vascular calcifications but no aneurysm. No evidence of venous thrombosis. Splenic varices. ?? Abdominal and pelvic wall:?? Rectus diastasis of the upper abdominal wall with a loop of transverse colon slightly protruding into the area of diastasis. This area of diastasis measures up to 7.2 cm (image 49 series 201), with very broad neck and shallow depth. Lateral abdominal wall presumed incisional hernia measuring up to 5.6 cm AP (image 71 series 201) and 3.6 cm craniocaudal and the neck (series 202, image 41), and expands to 14 cm AP by 13 cm craniocaudal by 7 cm transverse. This hernia contains otherwise normal-appearing small bowel and mesentericfat without evidence of obstruction or inflammation. Tiny fat-containing umbilical hernia. ?? Bones: No acute abnormality. Grade 1 anterolisthesis of L5 on S1 with bilateral pars defects. ? IMPRESSION:? Large, presumed incisional hernia in the right lateral abdominal wall beneath the inferior margin of the transplant right hepatic lobe which contain loops of otherwise normal-appearing small bowel and mesenteric fat. Small, shallow, broad-based rectus diastases into which a portion of colon slightly bulges, with the colon otherwise normal. No evidence of bowel obstruction. ?? Irregularly shaped pulmonary cysts/blebs in the visualized portions of the lower lobes bilaterally and the right middle lobe. Nonspecific but could be seen with cystic lung disease such as lymphangioleiomyomatosis or Blanquita Lucina Isrrael. ?? Irregular hypodensity in the right hepatic lobe measuring up to 1.6 cm. This may represent hemangioma or an area of focal fat deposition, but is incompletely characterized. Consider nonemergent dedicated ultrasound or MRI for further evaluation.? There is moderate periportal edema which can be seen with volume overload or inflammatory processes. Severe splenomegaly measuring up to 20.1 cm. Splenic varices. Cannot exclude persistent portal hypertension. ?? Assessment/Plan 64-year-old man with multiple clinical comorbidities including CKD, mild dysplastic syndrome and a??orthotopic liver transplant in July 2023 in [place]??DC.?? Is currently mated to medical service with??anemia and??by pain from his hernia.?? From the patient's history he gets intermittent pain however has never been obstructed from this. ??When the pain is bad he gets somewhat nauseous??but has not been vomiting.?? On clinical exam??he does appear to have broad fascial defects??and??are nontender.?? The patient's labs were??unremarkable. ??Symptoms are in keeping with intermitten t??reducible??incarceration. ??The patient disclosed to me that he had an appointment to follow-up with his surgical team??in July of this year to discuss??elective repair of these hernias 1 year after??his surgery. ??From an??urgency general surgery point of view the patient is not acutely obstruc radha.?? Should he deteriorate in any way??please??do not hesitate to call us back.?? Otherwise the patient will follow-up with his??transplant surgical team who are managing??his complex abdomen in 1 month. ??Discussed with the patient was agreeable with the plan. ? Discussed with Dr. Cantu. [id number] Abdominal pain (Provisional) Abdominal pain Anemia Bicytopenia GERD without esophagitis Hepatitis C Hyperbilirubinemia Incisional hernia Leukopenia Myelodysplastic syndrome Status post liver transplant * Alondra PEREZ, Mat: PERFORM Event Display: Consultation Note Authored Date: [id number] I have seen and evaluated this patient on the above documented date. I have discussed the case and its management with the resident team and APPs as documented in the progress note.? 64 M -Intermittent abdominal pain, chronic abdominal wall hernias - no acute abdominal process. ?? Plan/ recommendations. -No indication for acute surgical intervention. -Patient should f/u with established surgery team. -ACS to sign off, please reconsult if you have any questions or concerns. ? RA Note * Mo Medina: PERFORM Event Display: Discharge/Transfer Note Hospital Authored Date: [id number] Nursing Discharge Note Entered On: 06/29/2024 11:49 EST Performed On: 06/29/2024 11:48 EST by Mo Medina Nursing Discharge Note 2 Discharge Time : 06/29/2024 11:45 EST Discharge Level of Care at Discharge : Home/Usp/Foster Care Patient Left Unit Via : Wheelchair Patient Accompanied Off Unit with : Responsible adult DC Instructions Provided & Signed by Pt : Yes Patient Understands D/C Instructions : Yes Patient Instructions Discharge Signed : Yes Did Pt have Specialty Bed or Wound Vac : No Mo Medina - 06/29/2024 11:48 EST * Aurelio PEREZ, William Adan: PERFORM Event Display: Discharge/Transfer Note Hospital Authored Date: [id number] Patient: ??THANH, ROCAEL ? Age:??64 Years?Sex:??Male?:??1960?? Patient Information Discharge Location: 4 Primary Care Physician: Maxine Victoria MD Admit Date/Time: 06/27/2024 15:32 Discharge Disposition Discharge Disposition: Home: No Services Discharge Diagnosis Abdominal pain (R10.9) Abdominal pain (R10.9) Incisional hernia (K43.2) GERD without esophagitis (K21.9) Hepatitis C (B19.20) Status post liver transplant (Z94.4) Leukopenia (D72.819) Myelodysplastic syndrome (D46.9) Anemia (D64.9) Bicytopenia (D75.89) Hyperbilirubinemia (E80.6) _ Discharge Medications Darbepoetin Penelope (darbepoetin penelope [...] none Medications Discontinued none Doses Changed none PCP Follow-Up/Heads-Up please ensure that patient follows with his primary surgeon Objective Assessment and Plan Assessment:??64-year-old male patient who presents to the emergency department for evaluation abdominal pain.??He has a past medical history of end-stage liver disease secondary to liver cirrhosis secondary to hepatitis C s/p liver transplant in 2023, chronic kidney disease, myelodysplastic syndrome on EPO injections, currently transfusion dependent He presented to the hospital with abdominal pain. ?? Abdominal pain (R10.9) Incisional hernia (K43.2) Hyperbilirubinemia (E80.6) Patient with a past medical history of liver cirrhosis s/p??liver transplant??with large??abdominalscar and 2 incisional hernias.??He reports??pain at the hernia site. He denies vomiting, nausea,??severe abdominal pain,??diarrhea, or systemic symptoms. CT scan abdomen/pelvis with??normal EF.??Bowel MD??incisional hernia without evidence of bowel obstruction. Hyperbilirubinemia 1.4 though mostly inconjugated Lactate within normal limit. No leukocytosis I discussed with GI fellow who reviewed labs and imaging recommended surgical consult general surgery reviewed and recommended no urgent intervention but to follow up with primary surgeon in [place] Patient's pain has improved and he wishes to be discharged He reports that he has follow up with his primary surgeon at the beginning of next month ?? Myelodysplastic syndrome (D46.9) Bicytopenia (D75.89) Leukopenia (D72.819) Anemia (D64.9) Known MDS.?? Follow up outpatient?? Chronic anemia, transfusion dependent. Blood counts are stable. Continue to monitor. Known MDS.? Status post liver transplant (Z94.4) Hepatitis C (B19.20) Liver transplant in July 2023??at [place].??Care is in [facility] at??[place]??with??regular visits to [place]??DC. Tacrolimus dose recently changed to 4mg BID.?? Continue tacrolimus at 4mg BID?? Transplant team, last number listed [phone] Ensure follow up with Transplant Team Continue Ursodiol ?? GERD without esophagitis (K21.9):??Continue PPI ? Vital Signs?? Temperature: 98.6 DegF (06/29/24 04:54:00) Temperature Route: Oral (06/29/24 04:54:00) Pulse Rate: 87 bpm (06/29/24 04:54:00) Respiratory Rate: 16 br/min (06/29/24 04:54:00) Systolic Blood Pressure: 125 mm Hg (06/29/24 04:54:00) Diastolic Blood Pressure: 78 mm Hg (06/29/24 04:54:00) Blood pressure sites: Arm, right (06/29/24 04:54:00) Mean Arterial Pressure: 94 mm Hg (06/29/24 04:54:00) Pulse Pressure: 47 mm Hg (06/29/24 04:54:00) Oxygen Saturation: 100 % (06/29/24 04:54:00) Mode of Delivery (Oxygen): Room air (06/29/24 04:54:00) Early Warning Score: 1 (06/29/24 04:54:57) ? . Physical Exam Gen: comfortable, well: HEENT: normocephalic, atraumatic, moist mucous membranes Chest: CTA, no wheeze/crackles CVS: no M/G/R, no JVD Abdo: soft, 2 large incisional hernias. minimal tenderness. normal bowel sounds Ext: no oedema, no cyanosis or clubbing Neuro: A+Ox3 Psych: WNL Pending Results Add On Lab Order ordered on 06/27/2024 Patient Education Titles WebMD Ignite Patient Education - What Is a Hernia??? Follow-Up Appointments Added Follow Up ?Time Frame ?Comments Maxine Victoria MD?1 to 2 weeks Home Health Face to Face ^HomeHealthFTF Results Discharge Labs BLOOD COUNT & DIFF WBC 5.5 k/mm3 ()?? 06/28/2024 06:28 RBC 2.74 m/mm3 (Low)?? 06/28/2024 06:28 Hgb 8.4 Gm/dL (Low)?? 06/28/2024 06:28 Hct 24.0 % (Low)?? 06/28/2024 06:28 MCV 87.6 femtoliters ()?? 06/28/2024 06:28 MCH 30.7 pg ()?? 06/28/2024 06:28 MCHC 35.0 Gm/dL ()?? 06/28/2024 06:28 Platelet Count 273 k/mm3 ()?? 06/28/2024 06:28 RDW-SD 59.0 femtoliters (High)?? 06/28/2024 06:28 MPV 10.2 femtoliters ()?? 06/28/2024 06:28 Nucleated RBC (Automated) 0.0 #/100 WBC'S ()?? 06/28/2024 06:28 Abs. NRBC 0.0 k/mm3 ()?? 06/28/2024 06:28 Abs. Neut 2.0 k/mm3 ()?? 06/27/2024 06:45 Abs. Lymph 0.4 k/mm3 (Low)?? 06/27/2024 06:45 Abs. Fulton 0.4 k/mm3 ()?? 06/27/2024 06:45 Abs. Eo 0.2 k/mm3 ()?? 06/27/2024 06:45 Abs. Baso 0.0 k/mm3 ()?? 06/27/2024 06:45 Neut % 65.9 % ()?? 06/27/2024 06:45 Lymph % 13.1 % (Low)?? 06/27/2024 06:45 Fulton % 14.4 % (High)?? 06/27/2024 06:45 Eos % 5.9 % ()?? 06/27/2024 06:45 Baso % 0.0 % ()?? 06/27/2024 06:45 Imm Gran 0.7 % ()?? 06/27/2024 06:45 Abs. Imm Gran 0.0 k/mm3 ()?? 06/27/2024 06:45 ?? CHEM GENERAL Sodium 134 mmol/L ()?? 06/28/2024 06:28 Potassium 5.1 mmol/L ()?? 06/28/2024 06:28 Chloride 98 mmol/L ()?? 06/28/2024 06:28 Bicarbonate Level 23 mmol/L ()?? 06/28/2024 06:28 Anion Gap 13 mmol/L ()?? 06/28/2024 06:28 Glucose Level 116 mg/dL (High)?? 06/28/2024 06:28 BUN 23 mg/dL ()?? 06/28/2024 06:28 Creatinine-Blood 1.33 mg/dL (High)?? 06/28/2024 06:28 Estimated GFR Creatinine 60 ML/MIN/1.73 M2 ()?? 06/28/2024 06:28 Calcium 10.2 mg/dL ()?? 06/28/2024 06:28 Magnesium 1.7 mg/dL ()?? 06/28/2024 06:28 Protein, Total 8.2 Gm/dL ()?? 06/28/2024 06:28 Albumin 4.7 Gm/dL ()?? 06/28/2024 06:28 AG Ratio 1.3 ()?? 06/28/2024 06:28 Alkaline Phosphatase 93 units/L ()?? 06/28/2024 06:28 Lipase, Serum/Plasma 16 units/L ()?? 06/27/2024 06:45 AST (SGOT) 25 units/L ()?? 06/28/2024 06:28 ALT (SGPT) 23 units/L ()?? 06/28/2024 06:28 Bilirubin, Total 1.5 mg/dL (High)?? 06/28/2024 06:28 Bilirubin, Direct 0.4 mg/dL (High)?? 06/27/2024 06:45 Bilirubin, Indirect 1.0 mg/dL (High)?? 06/27/2024 06:45 Lactate 1.6 mmol/L ()?? 06/27/2024 06:45 ?? TOXICOLOGY/TDM Tacrolimus Level 7.7 ng/mL ()?? 06/27/2024 09:22 ? UA/URINALYSIS Appear/Color, Urine LIGHT YELLOW ()?? 06/27/2024 06:40 Specific [place] Smet, Urine 1.013 ()?? 06/27/2024 06:40 pH, Urine 7.5 ()?? 06/27/2024 06:40 Albumin, Urine TRACE (Abnormal)?? 06/27/2024 06:40 Glucose, Urine TRACE (Abnormal)?? 06/27/2024 06:40 Ketones, Urine NEGATIVE ()?? 06/27/2024 06:40 Bilirubin, Urine NEGATIVE ()?? 06/27/2024 06:40 Hemoglobin, Urine NEGATIVE ()?? 06/27/2024 06:40 Nitrite, Urine NEGATIVE ()?? 06/27/2024 06:40 Leukocyte, Urine NEGATIVE ()?? 06/27/2024 06:40 Urobilinogen NORMAL mg/dL ()?? 06/27/2024 06:40 WBC's, Urine 1 /HPF ()?? 06/27/2024 06:40 RBC's, Urine 2 /HPF ()?? 06/27/2024 06:40 Bacteria SLIGHT HPF (Abnormal)?? 06/27/2024 06:40 Hyaline Cast 1 LPF ()?? 06/27/2024 06:40 Mucus SLIGHT /LPF ()?? 06/27/2024 06:40 Hold Urine Culture Testing available 48 hours from time of collection. ()?? 06/27/2024 06:40 ? URINE OTHER Est Creatinine Clearance 56.66 mL/min ()?? 06/28/2024 18:57 ? Image ?CT Abd/Pelvis W/ IV Contrast Only??06/27/2024 07:28 by Yesi Wiggins ? IMPRESSION: Large, presumed incisional hernia in the right lateral abdominal wall beneath the inferior margin of the transplant right hepatic lobe which contain loops of otherwise normal-appearing small bowel and mesenteric fat. Small, shallow, broad-based rectus diastases into which a portion of colon slightly bulges, with the colon otherwise normal. No evidence of bowel obstruction. Irregularlyshaped pulmonary cysts/blebs in the visualized portions of the lower lobes bilaterally and the right middle lobe. Nonspecific but could be seen with cystic lung disease such as lymphangioleiomyomatosis or Blanquita Lucina Isrrael. Irregular hypodensity in the right hepatic lobe measuring up to 1.6 cm. This may represent hemangioma or an area of focal fat deposition, but is incompletely characterized. Consider nonemergent dedicated ultrasound or MRI for further evaluation. There is moderate periportal edema which can be seen with volume overload or inflammatory processes. Severe splenomegaly measuring up to 20.1 cm. Splenic varices. Cannot exclude persistent portal hypertension. ?US Liver??06/27/2024 10:21 by Stefani Gutierres ? IMPRESSION: Simple hepatic cyst in the left lower liver. Another simple appearing cystic focus witha small thin septation in the right lobe of the liver, likely hepatic cyst. No suspicious liver lesion identified by ultrasound. The previously seen subtle peripheral hypodensity in the right hepaticlobe posterior to a cyst (on CT series 201, image 38) is not identified and remains indeterminate. Mildly heterogeneous echogenicity likely reflects periportal edema but is seen on CT. ?? Consult ?EGS Consult Note??06/28/2024 15:38 by Truman Tellez MD ? 35_ minutes spent on discharge * Lacy Perez RN: PERFORM Event Display: Patient Education/Instruction Authored Date: [id number] Inpatient Adult Discharge Instructions. [address] [address] Name: ROCAEL LAW : 1960?? Visit: 06/27/2024 15:32?? Current Date: 06/29/2024 11:22 ?? Account: [id number]?? Inpatient Adult Discharge Instructions We would like [...] and their families. Surveys are administered by [employer] [employer] ?? If further treatment with your primary care physician or another doctor is recommended, it is important for you to keep the appointment. Call your primary care physician or return to the Emergency Department immediately if your condition worsens, fails to improve, or new symptoms develop. If you need to find a doctor, you can call [facility] [employer] for a referral at [phone] or toll free at [phone]) or log in to [email or web address].. ?? [facility], in keeping with [facility] guidance, no longer requires face masks [...] a health care zeinab of your choosing. [employer] is a website that allows you to securely view your medical information including your hospital discharge summary, office visit summaries, medications and follow-up visits. You can also request appointments, renew medications, and request access to your medical information using a health care zeinab of your choosing, or just ask a question. You can enroll at [email or web address] or register during your next office visit. You have been discharged from [facility], Patient Care Unit: S64??. If you have any questions regarding these instructions, including results of studies pending, afteryou leave, please call us and we will be happy to assist you 02/12. [facility] Your Care Team Attending Physician Aurelio PEREZ, William Adan?? Consulting Providers William Carey MD?? Discharging Providers William Carey MD Reason for Your Visit Pt coming from home w/ abd pain. did not provide details to EMS regarding location of abd pain, associated sx or triggers, when the pain started, etc. hx liver tx, cirrhosisplaced on 2L O2 for comfort by EMS?? Your Diagnosis Abdominal pain Anemia Bicytopenia GERD without esophagitis Hepatitis C Hyperbilirubinemia Incisional hernia Leukopenia Myelodysplastic syndrome Status post liver transplant Tests Performed Below is a partial list of the tests performed during your hospitalization. You may have had other tests and procedures not included in this list. Please discuss all test results with your provider. CBC CBC w/ Differential Comprehensive Metabolic Panel Lactate Level Lipase Magnesium Level Tacrolimus Level TOTAL AND DIRECT BILIRUBIN Urinalysis w/hold for Urine Culture CT Abd/Pelvis W/ IV Contrast Only US Liver Add On Lab Order?? Bilirubin Total + Direct (TOTAL AND DIRECT BILIRUBIN)?? CBC?? CBC w/ Differential?? CT Abd/Pelvis W/ IV Contrast Only?? Comprehensive Metabolic Panel?? Lactic Acid Level (Lactate Level)?? Lipase?? Magnesium Level?? Tacrolimus Level?? US Liver?? Urinalysis w/hold for Urine Culture?? Primary Care Provider Maxine Victoria MD? Advance Directive Health Care Proxy on File Yes - Health Care Proxy Discharge Vitals Temperature: 98.6 DegF Height: 175 cm Pulse Rate: 87 bpm Weight: 73.8 kg Respiratory Rate: 16 br/min Body Mass Index: 24.1 kg/m2 Systolic Blood Pressure: 125 mm Hg Body surface area: 1.89 Diastolic Blood Pressure: 78 mm Hg ?? Oxygen Saturation: 100 % ?? Studies Pending All studies ordered during this hospital stay have been completed unless listed below. Please discuss all pending results with your provider listed above in these instructions. ?? Add On Lab Order?? What to do next Instructions From Your Doctor ?? Orders? 06/29/24 11:01:00 EST?? Prescriptions??, ??06/29/24 11:01:00 EST?? You Need to Schedule the Following Appointments Follow Up with??Maxine Victoria MD When:??Within 1 to 2 weeks Where: [address] [place] [phone] Business (1) Discharge Medications ROCAEL LAW :1960 Visit Date:06/27/2024 Medications: Please continue your medications until treatment [...] capsule) 1 capsule Oral Twice a day today, 06/29/24 9pm Unchanged Pantoprazole (pantoprazole 40 mg oral delayed release tablet) 1 tab(s) Oral Daily tomorrow, 06/30/24 9am Unchanged sodium zirconium cyclosilicate (sodium zirconium cyclosilicate 5 g oral powder for reconstitution) 1 pack/packet Oral Daily tomorrow, 06/30/24 9am Unchanged Tacrolimus (tacrolimus 1 mg oral capsule) 4 capsule Oral Twice a day today, 06/29/24 9pm Unchanged urea powder (urea 15 g oral powder for reconstitution) 15 gram Oral Daily tomorrow, 06/30/24 9am Unchanged Ursodiol (ursodiol 300 mg oral capsule) 1 capsule Oral 3 times a day today, 06/29/24 3pm Prescription Given During Visit No new medications prescribed at time of discharge.?? Laboratory Results Below is a partial list of the most recent Laboratory test results done prior to this discharge. You may have had other tests and procedures not included in this list. Please discuss all test resultswith your provider. Est Creatinine Clearance - 56.66 mL/min (06/28/2024) CBC (06/28/2024) ???WBC - 5.5 k/mm3???RBC - 2.74 m/mm3???Hgb - 8.4 Gm/dL???Hct - 24.0 %???MCV - 87.6 femtoliters???MCH - 30.7 pg???MCHC - 35.0 Gm/dL???Platelet Count - 273 k/mm3???RDW-SD - 59.0 femtoliters???MPV - 10.2 femtoliters???Nucleated RBC (Automated) - 0.0 #/100 WBC'S???Abs. NRBC - 0.0 k/mm3 CBC w/ Differential (06/27/2024) ???WBC - 3.1 k/mm3???RBC - 2.31 m/mm3???Hgb - 7.0 Gm/dL???Hct - 20.5 %???MCV - 88.7 femtoliters???MCH - 30.3 pg???MCHC - 34.1 Gm/dL???Platelet Count - 221 k/mm3???RDW-SD - 59.7 femtoliters???MPV - 11.0 femtoliters???Nucleated RBC (Automated) - 0.0 #/100 WBC'S???Abs. NRBC - 0.0 k/mm3???Abs. Neut - 2.0 k/mm3???Abs. Lymph - 0.4 k/mm3???Abs. [place] - 0.4 k/mm3???Abs. Eo - 0.2 k/mm3???Abs. Baso - 0.0 k/mm3???Neut % - 65.9 %???Lymph % - 13.1 %???[place] % - 14.4 %???Eos % - 5.9 %???Baso % - 0.0 %???Imm Gran - 0.7 %???Abs. Imm Gran - 0.0 k/mm3 Comprehensive Metabolic Panel (06/28/2024) ???Sodium - 134 mmol/L???Potassium - 5.1 mmol/L???Chloride - 98 mmol/L???Bicarbonate Level - 23 mmol/L???Anion Gap - 13 mmol/L???Glucose Level - 116 mg/dL???BUN - 23 mg/dL???Creatinine-Blood - 1.33 mg/dL???Estimated GFR Creatinine - 60 ML/MIN/1.73 M2???Calcium - 10.2 mg/dL???Protein, Total - 8.2 Gm/ dL???Albumin - 4.7 Gm/dL???AG Ratio - 1.3???Alkaline Phosphatase - 93 units/L???AST (SGOT) - 25 units/L???ALT (SGPT) - 23 units/L???Bilirubin, Total - 1.5 mg/dL Lactate Level (06/27/2024) ???Lactate - 1.6 mmol/L Lipase (06/27/2024) ???Lipase, Serum/Plasma - 16 units/L Magnesium Level (06/28/2024) ???Magnesium - 1.7 mg/dL Tacrolimus Level (06/27/2024) ???Tacrolimus Level - 7.7 ng/mL TOTAL AND DIRECT BILIRUBIN (06/27/2024) ???Bilirubin, Total - 1.4 mg/dL???Bilirubin, Direct - 0.4 mg/dL???Bilirubin, Indirect - 1.0 mg/dL Urinalysis w/hold for Urine Culture (06/27/2024) ???Appear/Color, Urine - LIGHT YELLOW???Specific [place], Urine - 1.013???pH, Urine - 7.5???Albumin, Urine - TRACE???Glucose, Urine - TRACE???Ketones, Urine - NEGATIVE???Bilirubin, Urine - NEGATIVE???Hemoglobin, Urine - NEGATIVE???Nitrite, Urine - NEGATIVE???Leukocyte, Urine - NEGATIVE???Urobilinogen - NORMAL???WBC's, Urine - 1 /HPF???RBC's, Urine - 2 /HPF???Bacteria - SLIGHT???Hyaline Cast - 1 LP F???Mucus - SLIGHT???Hold Urine Culture - Testing available 48 hours [...] Educational Leaflet Providered with your Discharge Instructions. [employer] Patient Education - What Is a Hernia??? Valuables and Belongings I fully understand and agree that [facility] accepts no responsibility for all my [...] witness Date for Pt to Sign Valuables/Belongings: 06/28/24 14:29:00 ?? Other Discharge Information ? Pulmonary Rehab Status?? Pulmonary Rehab Discharge Status?? Respiratory Rate: 16 br/min ? Common Emergency Awareness Tips IS [...] are strongly encouraged to quit. Please call [facility] [employer] [facility] at [phone] or [email or web address] ([phone]) or log in to [email or web address] for referrals to smoking cessation programs. ?? 877 Suicide & Crisis Lifeline is available 02/12 if you or someone you know needs to find a reason to keep living. By calling 952 you'll be connected to a skilled, trained counselor at a crisis center in your area. INPATIENT DISCHARGE INSTRUCTIONS SIGNATURE GARCÍA BLAINE LAWO Location:[facility] Registration Date and Time:06/27/2024 15:32 EST Primary Care Physician: Maxine Victoria MD, Attending Physician: William Carey MD, I ROCAEL LAW, have received the above patient education materials/instructions and have verbalized understanding. If ambulance or transport services are being used I further acknowledge being given a choice of service. ?? If you need to contact me, please call me at this number: . Patient/Greenskeeper Laborer Name: Patient/Greenskeeper Laborer Signature: Relationship to Patient: Witness Name/Signature: Date: * Aurelio PEREZ, William Adan: PERFORM, SIGN, VERIFY Event Display: Patient Education Handout Authored Date: [id number] * William Carey MD: PERFORM Event Display: Patient Education Leaflets Authored Date: [id number] What Is a Hernia? ?? [id number] What Is a Hernia? A hernia is when an organ or tissue pushes through a weak spot in the muscle or tissue that normally holds it in, such as the belly (abdominal) wall. This weak spot may be there at . Or it may be caused by abdominal strain over time. If not treated, a hernia can get worse with time and physical stress. When a bulge forms When there is a weak spot in the abdominal wall, an organ or tissue can push outward. This often causes a bulge that you can see under your skin. The bulge may get bigger when you stand up. It may goaway when you lie down. You may also feel some pressure or mild pain when lifting, moving, coughing, urinating, or having a bowel movement. ?? Types of hernias The type of hernia you have depends on where it is. Most hernias form in the groin at or near the internal ring. This is the entrance to a canal between the abdomen and groin. Hernias can also occur in the abdomen, thigh, or genitals. ??? Incisional hernia. This occurs at the site of a previous surgical cut (incision). ??? Umbilicalhernia. This occurs at the belly button (navel). It occurs when the muscle around the belly button does not close completely after . ??? Indirect inguinal hernia. This occurs in the groin at theinternal ring. It often happens in premature births, before the inguinal canal becomes closed. ??? Direct inguinal hernia. This occurs in the groin near the internal ring. It usually results from theweakening of the belly muscles over time. This is more common in adult males. ??? Femoral hernia. This occurs just below the groin, in the upper thigh. It is more common in women than in men. ??? Epig astric hernia. This occurs in the upper abdomen at the midline. ??? Hiatal hernia. This occurs whenpart of the upper stomach comes through an opening in your diaphragm, or chest wall. ??? Congenitaldiaphragmatic hernia. It is congenital (a baby is born with it). This happens when the diaphragm doesn???t form right in infants. Other types of hernias can occur. But they are rare. ?? Diagnosis In most cases, your health care provider can diagnose a hernia with a physical exam. In some cases, it might not be clear why you have swelling in the belly wall. You may need an imaging test such as an ultrasound or CT scan. This can help with the diagnosis. If there is a blockage in the bowel, an X-ray of the abdomen may be done. ?? Surgery In children, an umbilical hernia can often heal on its own. If it doesn't heal on its own by the time a child is age 5 years, it will likely need to be repaired. In adults, a hernia will not heal on its own. Surgery is needed to repair the weak spot in the belly wall. Most hernias are closed with stitches and sometimes with mesh patches to plug the hole. If not treated, a hernia can get larger. It can cause serious health problems. Some hernias can be watched and repaired if they grow bigger or start to cause symptoms. Most hernias are fixed with laparoscopic surgery. This type of surgery is done through several verysmall cuts. Some types of hernias may need surgery where a larger cut is made in the belly. In??some cases, you can go home on the same day as your surgery. ?? When to contact your provider Contact or see your health care provider right away if the swelling around your??hernia becomes larger, firmer, or more painful. It may be??a sign that your intestines are??stuck in the belly wall and their blood supply is in trouble. This is an emergency. The hernia must be repaired right away to prevent severe problems. ?? Last Reviewed Date: 2024 ?? [employer]. All rights reserved. This information is not [...] Position: Reference Physician Member Role: PCP Address: [address] [place] [address] Telecom: Name: Edwin Serna RN Position: S RN Member Role: Primary Care Nurse Name: Stephanie Chaidez RN Position: S RN Member Role: Primary Care Nurse Name: Jeremy Torres RN Position: S RN Member Role: Primary Care Nurse Name: Iftikhar Arcoe MD Position: [facility] Renal MD Member Role: Lifetime Consulting Physician Address: [address] [place] [address] [id number] [facility] [address] Telecom: Name: Haley Mtz RN Position: S RN Member Role: Primary Care Nurse Care Team Related Persons Name: ROCAEL LAW Insurance Providers Guarantor name: ROCAEL LAW Health Plan Information #: 1 Payer: [employer] Member Number: [id number] Policy Number: NA Group Number: NA Health Plan Information #: 2 Payer: [employer] [place] Member Number: [id number] Policy Number: NA Group Number: NA
--- OUTSIDE RECORDS SUMMARY | 2024-07-20 10:55 | XMS_ITS | Continuity of Care Document ---
Author Organization [facility] ter Address [address] [place] [id number] Care Team Providers Care Route Driver Name Role Phone Maxine Victoria MD Primary Care Physician Encounter [facility] [place] Date(s): 06/22/24 - 06/24/[address] [address]- Encounter Diagnosis JAVIER (acute kidney injury)(Final) - 06/23/24 JAVIER (acute kidney injury)(Final) - 06/23/24 Discharge Disposition: A-D/C Home Attending Physician: Indio Bhatti MD Admitting Physician: Whitley Nelson MD Referring Physician: Not on Staff, Referring MD Encounter Type: Disch IP Allergies, Adverse Reactions, Alerts No Known Allergies Immunizations Given and Recorded Vaccine Date Status Refusal Reason influenza virus vaccine, inactivated 02/25/24 Gaurav rded influenza virus vaccine, inactivated 01/25/22 Gaurav rded influenza virus vaccine, inactivated 01/11/20 Gaurav rded influenza virus vaccine, inactivated 02/07/17 Gaurav rded SARS-CoV-2(COVID-19)mRNA-LNP vac([id number]) 02/25/24 Recorded SARS-CoV-2 mRNA ([id number]) vax 11/23/21 Recorded tetanus/diphtheria/pertussis, acel(Tdap) 07/17/21 Recorded [...] Active MDS - Myelodysplastic syndrome Confirmed Active Procedures Procedure Date Related Diagnosis Body Site Status Biliary stent procedures Completed LTx - Liver transplant Co mpleted Vital Signs Most recent to oldest [Reference Range]: 1 2 3 Height 175 cm (06/24/24 1:30 PM) 175 cm (06/23/24 9:16 AM) 175 cm (06/22/24 10:06 PM) Weight 73.8 kg (06/23/24 9:16 AM) 73.8 kg (06/22/24 10:06 PM) 73.8 kg (06/22/24 6:11 PM) Oxygen Saturation [94-100 %] 100 % (06/24/24 1:30 PM) 100 % (06/24/24 11:15 AM) 100 % (06/24/24 8:30 AM) Pulse Rate [55-90 bpm] 68 bpm (06/24/24 1:30 PM) 67 bpm (06/24/24 11:15 AM) 75 bpm (06/24/24 8:30 AM) Body Mass Index [18.5-24.99 kg/m2] 24.1 kg/m2 (06/23/24 9:16 AM) 24.1 kg/m2 (06/22/24 10:06 PM) 24.1 kg/m2 (06/22/24 6:11 PM) Blood Pressure [90-138/55-84 mm Hg] 146/88mm Hg *H* (06/24/24 1:30 PM) 135/75mm Hg (06/24/24 11:15 AM) 133/76mm Hg (06/24/24 8:30 AM) Respiratory Rate [16-30 br/min] 18 br/min (06/24/24 1:30 PM) 22 br/min (06/24/24 11:15 AM) 22 br/min (06/24/24 8:30 AM) Temperature [96.8-100.4 DegF] 98.7 DegF (06/24/24 1:30 PM) 98.4 DegF (06/24/24 8:30 AM) 98.2 DegF (06/24/24 6:48 AM) Mode of Delivery (Oxygen) Room air (06/24/24 1:30 PM) Room air (06/24/24 11:15 AM) Room air (06/24/24 8:30 AM) Blood pressure sites Arm, left (06/24/24 1:30 PM) Arm, left (06/23/24 9:16 AM) Arm, left (06/22/24 2:38 PM) Temperature Route Oral (06/24/24 1:30 PM) Oral (06/24/24 8:30 AM) Oral (06/24/24 6:48 AM) Dry Weight 73.8 kg (06/23/24 9:16 AM) 73.8 kg (06/22/24 10:06 PM) 73.8 kg (06/22/24 6:11 PM) Weight Obtained Via Patient/family stated (06/22/24 1:54 PM) Standing scale (06/22/24 1:50 PM) Social History Social History Type Response Smoking Status Former smoker, quit more than 30 days ago; Type: Cigarettes entered on: 06/03/24 Sex Male Sex Representation Male (finding) Consult note * Davin Cano MD: PERFORM Event Display: Consult Authored Date: [id number] Patient: ??FERNANDEZ LAW ? Age:??64 Years?Sex:??Male?:??1960?? Reason for Consult/Visit Pancytopenia, requiring pRBCs transfusion/complicated medical history including MDS and s/p liver transplant on tacrolimus. Requesting Physician Hematology/Oncology History Patient 64-year-old with PMH of cirrhosis liver cirrhosis secondary to chronic hep C s/p liver transplant in 2023 on tacrolimus, CKD, anemia on EPO injection every 2 weeks.?? He was admitted today with low hemoglobin H/H 5.4/16.7.?? S/p 2 unit packed RBCs transfusion with appropriate response, posttransfusion H/H 7.1/20.5. Per chart review patient hemoglobin has been fluctuating between 6-8, he had bone marrow biopsy last year that showed hypercellular marrow with subset dysplastic megakaryocytes and ASXL-1 gene mutation.?? He was supposed to meet with Dr. Polanco in the hematology clinic for further evaluation. ?? Subjective: Patient reported feeling well today, he denied any shortness of breath, chest pain or palpitations.?? He reported occasional night sweats and weakness, his weight has been fluctuating. 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 Tobacco Use: Former smoker, quit more than 30 days ago. Type: Cigarettes. Allergies NKA Medications Inpatient Acetaminophen Tablet, 650 mg, By Mouth, Every 4 hours, PRN Docusate Sodium Capsule, 100 mg= 1 capsule, By Mouth, 2 times a day, PRN magnesium oxide 400 mg oral tablet, 400 mg, By Mouth, 2 times a day Melatonin Tablet, 3 mg, By Mouth, Daily at bedtime, PRN MiraLax Powder, 17 Gm= 1 pack/packet, By Mouth, Daily, PRN NaCL 0.9% 1,000 mL, 1000 mL, IV Infusion NaCL 0.9% Flush, 3 mL, IV Push, Every 8 hours NaCL 0.9% Flush, 3 mL, IV Push, Every 8 hours, PRN pantoprazole 40 mg oral delayed release tablet, 40 mg, By Mouth, Daily Robitussin DM Liquid, 10 mL, By Mouth, Every 4 hours, PRN Senna Tablet, 8.6 mg= 1 tablet, By Mouth, 2 times a day, PRN Simethicone Tablet, 80 mg, Chew, 3 times a day, PRN tacrolimus 1 mg oral capsule, 4 mg, By Mouth, Daily at bedtime tacrolimus 1 mg oral capsule, 3 mg, By Mouth, Daily before breakfast Urea Powder, 15 Gm, By Mouth, 2 times a day ursodiol 300 mg oral capsule, 300 mg, By Mouth, 2 times a day Home BMP in 5 days, See Instructions CBC in 5 days, See Instructions darbepoetin penelope 300 mcg/0.6 mL injectable solution, 300 mcg, Subcutaneous Infusion, Every 14 days magnesium oxide 400 mg oral capsule, 400 mg= 1 capsule, By Mouth, 2 times a day pantoprazole 40 mg oral delayed release tablet, 40 mg= 1 tablet, By Mouth, Daily sodium zirconium cyclosilicate 5 g oral powder for reconstitution, 5 Gm= 1 pack/packet, By Mouth, Daily tacrolimus 1 mg oral capsule, 4 mg= 4 capsule, By Mouth, 2 times a day urea 15 g oral powder for reconstitution, 15 Gm, By Mouth, Daily ursodiol 300 mg oral capsule, 300 mg= 1 capsule, By Mouth, 3 times a day Physical Exam Vitals & Measurements T:??98.2?F?? TMIN:??98.1?F?? TMAX:??98.3?F?? HR:??72??(Peripheral)?? RR:??16?? BP:??130/55?? SpO2:??99%?? WT:??73.8??kg?? Lab Results/Pathology CBC?? CMP? Abs. NRBC: 0 k/mm3 (06/23/24 17:45:00) AG Ratio: 1.6 (06/22/24 14:03:00) LDH: 216 units/L (06/23/24 06:57:00) Hct:??20.9 %??Low (06/23/24 17:45:00) Alkaline Phosphatase: 68 units/L (06/22/24 14:03:00) ?? Nucleated RBC (Automated): 0 #/100 WBC'S (06/23/24 17:45:00) ALT (SGPT): 30 units/L (06/22/24 14:03:00) ?? RBC:??2.3 m/mm3??Low (06/23/24 17:45:00) Anion Gap: 11 mmol/L (06/23/24 06:57:00) ?? RDW-SD:??61.1 femtoliters??High (06/23/24 17:45:00) AST (SGOT): 18 units/L (06/22/24 14:03:00) ?? WBC:??2.1 k/mm3??Low (06/23/24 17:45:00) Bicarbonate Level: 22 mmol/L (06/23/24 06:57:00) ? Bilirubin, Total: 0.6 mg/dL (06/22/24 14:03:00) ? BUN:??56 mg/dL??High (06/23/24 06:57:00) ? Calcium: 9.5 mg/dL (06/23/24 06:57:00) ? Chloride:??109 mmol/L??High (06/23/24 06:57:00) ? Creatinine-Blood:??1.73 mg/dL??High (06/23/24 06:57:00) ? Estimated GFR Creatinine: 44 ML/MIN/1.73 M2 (06/23/24 06:57:00) ? Glucose Level: 98 mg/dL (06/23/24 06:57:00) ? Potassium: 5.2 mmol/L (06/23/24 06:57:00) ? Protein, Total: 6.7 Gm/dL (06/22/24 14:03:00) ? Sodium: 142 mmol/L (06/23/24 06:57:00) ?? Assessment/Plan 2.??Acute on chronic anemia Patient 64-year-old with PMH of cirrhosis liver cirrhosis secondary to chronic hep C s/p liver transplant in 2023 on tacrolimus, CKD, anemia on EPO injection every 2 weeks. ??Presenting with acute onchronic anemia, requiring a transfusion. ??He had bone marrow biopsy??in 2023??results as above.?? I suspect the patient anemia is multifactorial including CKD,??immunosuppressive drugs,??would like to complete the anemia workup with: Blood smear with next CBC, reticulocyte count, ferritin, haptoglobin, iron and iron binding capacity, B12, LDH, myeloma labs. Transfusion for hemoglobin less than 7. Will continue to follow ?? Case discussed with Dr. Lemus * Allan Tsai MD, Ernesto Alfosno: PERFORM Event Display: Consult Authored Date: [id number] Attending Attestation: I have seen and evaluated this patient with Dr. Cano. I have discussed the case and its management and agree with the findings and plan as documented in the note. ?? Patient with??acute on chronic anemia with diagnosis??of??MDS on EPO??admitted for worsening anemia.?? Haptoglobin undetectable, will check Glo test??and rule out??hemolysis due to??cardiac valvulopathy. * Fariha Santana: PERFORM Event Display: Consultation Note Authored Date: [id number] Patient: ??FERNANDEZ LAW ? Age:??64 Years?Sex:??Male?:??1960?? Chief Complaint/Reason for Consultation Nephrology consulted for JAVIER History of Present Illness Fernandez??Heath??is a 64-year-old male with??past medical history of cirrhosis secondary to hepatitis C status post liver transplant in July 2023 at [place] (on tacrolimus), chronic kidney disease, myelodysplastic syndrome on EPO injections, transfusion dependent who presented to the emergencydepartment in the setting of low hemoglobin.? Per Admission??note:??Patient had routine labs done when [facility] that hehad a severely low hemoglobin and to present to the emergency department for possible transfusion.?? In the ED, Hgb 5.4, Hct 16.7, PLT 200. CBC revealed hyperkalemia (K 5.5) for which pt was given Lokelma and JAVIER (Cr 2.07 mg/dL). Received pRBC transfusion.??Pt was admitted for anemia and JAVIER, Nephrology consulted for JAVIER.? Upon visit w/ pt, reports he presented for a low blood level, stating he was told it was 6.1. Unfortunately??pt states this is a common occurrence for him and had a recent admission this past May for anemia and hyponatremia. Reports he has a good appetite however upset he has received very little food since being at the hospital, stating he is hungry. Denies recent NSAIDs use. Denies symptoms of incomplete bladder emptying. Reports dizziness, otherwise no acute complaints at this time.?? Review of Systems As mentioned in HPI, otherwise negative?? Objective Vital Signs?? Temperature: 98.2 DegF (06/23/24 09:16:00) Temperature Route: Oral (06/23/24 09:16:00) Pulse Rate: 76 bpm (06/23/24 13:20:00) Respiratory Rate: 19 br/min (06/23/24 13:20:00) Systolic Blood Pressure:??139 mm Hg??High (06/23/24 13:20:00) Diastolic Blood Pressure: 84 mm Hg (06/23/24 13:20:00) Blood pressure sites: Arm, left (06/23/24 09:16:00) Mean Arterial Pressure: 102 mm Hg (06/23/24 09:16:00) Pulse Pressure: 55 mm Hg (06/23/24 13:20:00) Oxygen Saturation: 100 % (06/23/24 13:20:00) Mode of Delivery (Oxygen): Room air (06/23/24 13:20:00) Early Warning Score: 3 (06/23/24 13:21:50) ? Intake/Output? 06/22 23:02 06/23 07:00 06/22 07:00 06/21 07:00 06/20 07:00 ?? 06/23 14:48 06/23 14:48 06/23 06:59 06/22 06:59 06/21 06:59 Intake ?680 ?0 ?680 ?0 ?0 Output ?0 ?0 ?0 ?0 ?0 Net Total ?680 ?0 ?680 ?0 ?0 ? Physical Exam Physical Exam: General: Patient appears in no acute distress.?? HEENT: Moist mucous membranes noted.?? Cardiovascular: Regular rate and rhythm. Respiratory: Lungs clear to auscultation bilaterally. Abdominal: Soft Extremities: No peripheral edema.??All extremities warm to touch Neuro: Alert and oriented to person, place, time. ?? Assessment/Plan Fernandez??Heath??is a 64-year-old male with??past medical history of cirrhosis secondary to hepatitis C status post liver transplant in July 2023 at [place] (on tacrolimus), chronic kidney disease, myelodysplastic syndrome on EPO injections, transfusion dependent who presented to the emergencydepartment in the setting of low hemoglobin.??Pt was admitted for anemia and JAVIER, Nephrology consulted for JAVIER.? 1. JAVIER BL Cr ~1.1 mg/dL Cr peaked at??2.07 mg/dL, now improving Likely a prerenal JAVIER 2/2 anemia requiring transfusion, supported by improvement following transfusion.? 2. Liver Transplant History of??cirrhosis secondary to hepatitis C and alcohol use disorder status post liver transplant in??July 2023 at [facility] Chronically pt is taking tacrolimus 3 mg AM / tacrolimus 4 mg PM Transplant team can be contacted at [phone], previously stated goal tacrolimus level of 5-7.??If tacrolimus needs to be adjusted, please discuss with transplant team prior to adjusting. ?? 3. Anemia Presented with Hgb 5.4 - s/p pRBC transfusion History of??myelodysplastic syndrome receiving weekly erythropoietin ?? 4. History of hyponatremia In setting of SIADH Chronically takes urea 15 gm BID ?? Recommendations:?? - F/u urine labs - Normal Saline 75 mL/hr x1 L - Daily renal panel - Monitor I/Os - Continue tacrolimus 3 mg AM / tacrolimus 4 mg PM - Daily tacrolimus level (to be drawn BEFORE AM dose) -??Monitor Hgb, transfuse if Hgb < 7?Thank you,??will continue to follow. ?Fariha Gurrola PA-C ?[facility] ?Discussed with Dr.??Paramasivam Histories Allergies Allergies ?(Active and Proposed Allergies [...] Milligram By Mouth 2 times a day Miscellaneous Rx (BMP in 5 days)??See Instructions Pls send the results toRosetta Oquendoiagnosis: Acute kidney injury, anemia Miscellaneous Rx (CBC in 5 days)??See Instructions Pls send the results to Dr Julien [...] By Mouth 3 times a day ? Inpatient Medications Medications [...] mg Capsule (tacrolimus 1 mg oral capsule) ??3 mg, By Mouth, Daily before breakfast Urea 15 Gm Powder (Urea Powder) ??15 Gm, By Mouth, 2 times a day Ursodiol 300 mg Capsule (ursodiol 300 mg [...] BLOOD BANK Blood Type O Positive ()?? 06/22/2024 15:48 Antibody Screen Negative ()?? 06/22/2024 15:48 RBC Unit ID [id number] ()?? 06/23/2024 02:08 RBC Available IS ()?? 06/23/2024 02:08 ?? BLOOD COUNT & DIFF WBC 2.4 k/mm3 (Low)?? 06/23/2024 09:32 RBC 2.33 m/mm3 (Low)?? 06/23/2024 09:32 Hgb 7.1 Gm/dL (Low)?? 06/23/2024 09:32 Hct 20.5 % (Low)?? 06/23/2024 09:32 MCV 88.0 femtoliters ()?? 06/23/2024 09:32 MCH 30.5 pg ()?? 06/23/2024 09:32 MCHC 34.6 Gm/dL ()?? 06/23/2024 09:32 Platelet Count 202 k/mm3 ()?? 06/23/2024 09:32 RDW-SD 57.5 femtoliters (High)?? 06/23/2024 09:32 MPV 10.1 femtoliters ()?? 06/23/2024 09:32 Nucleated RBC (Automated) 0.0 #/100 WBC'S ()?? 06/23/2024 09:32 Abs. NRBC 0.0 k/mm3 ()?? 06/23/2024 09:32 Abs. Neut 0.8 k/mm3 (Low)?? 06/22/2024 14:03 Abs. Lymph 0.5 k/mm3 (Low)?? 06/22/2024 14:03 Abs. Bullitt 0.1 k/mm3 (Low)?? 06/22/2024 14:03 Abs. Eo 0.2 k/mm3 ()?? 06/22/2024 14:03 Abs. Baso 0.0 k/mm3 ()?? 06/22/2024 14:03 Neut % 42.5 % (Low)?? 06/22/2024 14:03 Lymph % 31.5 % ()?? 06/22/2024 14:03 Bullitt % 7.1 % ()?? 06/22/2024 14:03 Eos % 11.8 % (High)?? 06/22/2024 14:03 Baso % 1.6 % ()?? 06/22/2024 14:03 Band % 5.5 % (High)?? 06/22/2024 14:03 RBC Morphology MARKED ()?? 06/22/2024 14:03 Platelet Estimate ADEQUATE ()?? 06/22/2024 14:03 Retic Count 1.7 % ()?? 06/23/2024 09:32 Retic Count Corrected 0.8 % (Low)?? 06/23/2024 09:32 Retic Production Index 0.4 % (Low)?? 06/23/2024 09:32 ?? CHEM GENERAL Sodium 142 mmol/L ()?? 06/23/2024 06:57 Potassium 5.2 mmol/L ()?? 06/23/2024 06:57 Chloride 109 mmol/L (High)?? 06/23/2024 06:57 Bicarbonate Level 22 mmol/L ()?? 06/23/2024 06:57 Anion Gap 11 mmol/L ()?? 06/23/2024 06:57 Glucose Level 98 mg/dL ()?? 06/23/2024 06:57 BUN 56 mg/dL (High)?? 06/23/2024 06:57 Creatinine-Blood 1.73 mg/dL (High)?? 06/23/2024 06:57 Estimated GFR Creatinine 44 ML/MIN/1.73 M2 ()?? 06/23/2024 06:57 Calcium 9.5 mg/dL ()?? 06/23/2024 06:57 Protein, Total 6.7 Gm/dL ()?? 06/22/2024 14:03 Albumin 4.1 Gm/dL ()?? 06/22/2024 14:03 AG Ratio 1.6 ()?? 06/22/2024 14:03 Alkaline Phosphatase 68 units/L ()?? 06/22/2024 14:03 AST (SGOT) 18 units/L ()?? 06/22/2024 14:03 ALT (SGPT) 30 units/L ()?? 06/22/2024 14:03 Bilirubin, Total 0.6 mg/dL ()?? 06/22/2024 14:03 ?? URINE OTHER Est Creatinine Clearance 43.56 mL/min ()?? 06/23/2024 07:43 ? CBC, CBC w/Diff?? CBC?? Differential?? WBC:??2.4 k/mm3??Low (09:32) Retic Count: 1.7 % (09:32) RBC:??2.33 m/mm3??Low (:32) Retic Count Corrected:??0.8 %??Low (:32) Hct:??20.5 %??Low (09:32) Retic Production Index:??0.4 %??Low (:32) RDW-SD:??57.5 femtoliters??High (09:32) ?? Nucleated RBC (Automated): 0 #/100 WBC'S (09:32) ?? Abs. NRBC: 0 k/mm3 (09:32) ? BMP, Mg, and Phos Anion Gap: 11 mmol/L (06:57) Bicarbonate Level: 22 mmol/L (06:57) BUN:??56 mg/dL??High (06:57) Calcium: 9.5 mg/dL (06:57) Chloride:??109 mmol/L??High (06:57) Creatinine-Blood:??1.73 mg/dL??High (06:57) Estimated GFR Creatinine: 44 ML/MIN/1.73 M2 (06:57) Glucose Level: 98 mg/dL (06:57) Potassium: 5.2 mmol/L (06:57) Sodium: 142 mmol/L (06:57) ?? Urinalysis Est Creatinine Clearance: 43.56 mL/min (07:43) ? * Marielos PEREZ, Iftikhar: PERFORM Event Display: Consultation Note Authored Date: Chart reviewed . Patient evaluated ??I have discussed the case , its management with the??PA on rounds on the date of??service. Agree with the findings and plan we developed together in the PA???s note detailed??below Admission evaluation note * Leslie PEREZ, Whitley Diaz: MODIFY, MODIFY SeraSelwyn diaz DO: MODIFY, PERFORM Seraj Selwyn REED: PERFORM, MODIFY Seraj Selwyn REED: MODIFY Event Display: Admission Note Authored Date: Patient: ??FERNANDEZ LAW ? Age:??64 Years?Sex:??Male?:??1960?? Chief Complaint/Reason for Consultation Acute on chronic anemia History of Present Illness This is a 64-year-old male past medical history of cirrhosis secondary to hepatitis C status post liver transplant in July 2023 at [place] (on tacrolimus), chronic kidney disease, myelodysplasticsyndrome on EPO injections, transfusion dependent who is presenting to the emergency department in the setting of low hemoglobin.?? Patient had routine labs done today when [facility] alerted him that he had a severely low hemoglobin and to present to the emergency department for possible transfusion.?? On my bedside evaluation patient states he has no active complaints at this time. ??He does tell me that this is a chronic issue for him and he has an upcoming appointment with hematology in July??for further evaluation. ?? Objective data: ??? CBC is significant for white count of 1.7, H/H of 5.4/16.7 and platelet count of 200. ??? CMP significant for hyperkalemia 5.5 which Lokelma 10 g was given and acute kidney injury at 2.07 Review of Systems Except as listed above.?? Objective Vital Signs?? Temperature: 97.9 DegF (06/22/24 22:06:00) Temperature Route: Oral (06/22/24 22:06:00) Pulse Rate: 68 bpm (06/22/24 22:06:00) Respiratory Rate:??12 br/min??Low (06/22/24 22:06:00) Systolic Blood Pressure: 130 mm Hg (06/22/24 22:06:00) Diastolic Blood Pressure: 78 mm Hg (06/22/24 22:06:00) Blood pressure sites: Arm, left (06/22/24 14:38:00) Mean Arterial Pressure: 95 mm Hg (06/22/24 22:06:00) Pulse Pressure: 52 mm Hg (06/22/24 22:06:00) Oxygen Saturation: 100 % (06/22/24 22:06:00) Mode of Delivery (Oxygen): Room air (06/22/24 22:06:00) Early Warning Score: 5 (06/23/24 01:19:35) ? Physical Exam Constitutional: Alert, in no distress. Mental Status: Oriented to person, place and time. Respiratory: Clear to auscultation. No wheezing, rales or rhonchi. Cardiovascular: S1 S2 regular. No murmurs, rubs or gallops. Gastrointestinal: Abdomen soft, non-tender, non-distended.?? Neurologic: No focal neurological deficits. Flexor plantar response. Moves all extremities spontaneously. Sensation intact bilaterally. Skin: No rashes or lesions. No petechiae or purpura.?? Musculoskeletal: No cyanosis or clubbing. No gross deformities.?? Psychiatric: Normal mood and affect Assessment/Plan Diagnoses 1. ??JAVIER (acute kidney injury) ??(N17.9) 2. ??Acute on chronic anemia ??(D64.9) 3. ??GERD without esophagitis ??(K21.9) 4. ??Status post liver transplant ??(Z94.4) ?? This is a 64-year-old male past medical history of cirrhosis secondary to hepatitis C status post liver transplant in July 2023 at [place] (on tacrolimus), chronic kidney disease, myelodysplasticsyndrome on EPO injections, transfusion dependent who is presenting to the emergency department in the setting of low hemoglobin.?Undergoing??PRBC transfusion. ?? Acute on chronic anemia Myelodysplastic syndrome Acute kidney injury Leukopenia Patient has a well-known history of acute on chronic anemia requiring transfusions.?? He has a history of myelodysplastic syndrome and receives EPO injections biweekly.?? He again presents due to abnormal lab work and severely low hemoglobin.?? He has an upcoming appointment with hematology in July to further discuss his treatment options. No signs of active bleeding. Acute kidney injury is likely prerenal in the setting of severely low hemoglobin.?? Will expect resolution with transfusion. Leukopenia is likely in setting of myelodysplastic syndrome although if patient spikes fever, low threshold for abx. Current status:??Continues to have hemoglobin less than??7. Will order additional 1??unit PRBC transfusion. ?? Plan: ??? Additional 1 unit PRBC transfusion??and recheck H/H in the a.m. ??? Repeat BMP in the a.m. ??? Outpatient follow-up with hematology ?? Status post liver transplantation Hepatitis C History of alcohol use Status post liver transplant July 2023 [place].?? On last hospitalization his tacrolimus dose was changed to 3 mg in a.m. and 4 mg in the p.m. ?? Plan: ??? Continue tacrolimus 3 mg in the morning and 4 mg nightly ??? Tacrolimus level in a.m. ??? Continue ursodiol twice daily ??? Close follow-up with transplant team ?? Hyponatremia:??Patient was recently here for hyponatremia. ??He states he has continued to take??urea powder 15 g twice daily through the [facility]. GERD: Continue PPI ?? DVT prophylaxis: activity CODE STATUS: Full Diet: Regular ?? Patient seen and discussed with attending physician Dr. Nelson. ?? Selwyn Hendrix, DO Internal Medicine PGY2 ? Attending Attestation: I have seen and evaluated this patient???06/23/2024 in the ED??D pod??after he was sent??for??evaluation and transfusion with low hemoglobin?? on outpatient labs??in the settingof??transfusion dependent??anemia with MDS??and was confirmed to have??hemoglobin of 5.4??with initial tachycardia, normotension??and some JAVIER on CKD with a BUN/creatinine 76/2.07 (1.3-1.5). ??He denies any reports of blood loss??but was due for blood transfusion.?? Unclear etiology for the JAVIER butcould be hypoperfusion on the setting of low hemoglobin. ??He is working to establish care with??hem atology??so that he can get transfusions??arranged routinely through the transfusion center??ratherthan coming through the ED. ??He is not symptomatic??currently.?Awaiting repeat hemoglobin level after??the blood is transfused??as well as recheck of the kidney function. ??T??he is also neutropenic in the setting of immunosuppression for his transplant??but has not had any fevers or signs ofacute infection. ??He patient indicates that he is traveling to the [facility]??soon to have his biliary stent removed???LFTs are normal and he has no complaints of abdominal pain.?I have discussed the case and its management with the resident and agree with the findings and plan asdocumented in the resident's note. ?? [] Histories Allergies Allergies ?(Active and Proposed Allergies [...] tablet)??1 tab(s) 40 Milligram By Mouth Daily Tacrolimus (tacrolimus 1 mg oral capsule, extended release)??See Instructions Take 3 capsules by mouth every morning before breakfast, and 4 capsules by mouth at bedtime Ursodiol (ursodiol 300 mg oral capsule)??300 Milligram 1 capsule By Mouth 2 times a day Urea powder???still taking??under the advice of his GI doctors in [facility] ?? Results Recent Labs BLOOD BANK Blood Type O Positive ()?? 06/22/2024 15:48 Antibody Screen Negative ()?? 06/22/2024 15:48 RBC Unit ID [id number] ()?? 06/22/2024 15:48 RBC Available IS ()?? 06/22/2024 15:48 ?? BLOOD COUNT & DIFF WBC 1.6 k/mm3 (Critical)?? 06/23/2024 00:39 RBC 1.85 m/mm3 (Low)?? 06/23/2024 00:39 Hgb 5.6 Gm/dL (Critical)?? 06/23/2024 00:39 Hct 16.8 % (Critical)?? 06/23/2024 00:39 MCV 90.8 femtoliters ()?? 06/23/2024 00:39 MCH 30.3 pg ()?? 06/23/2024 00:39 MCHC 33.3 Gm/dL ()?? 06/23/2024 00:39 Platelet Count 179 k/mm3 ()?? 06/23/2024 00:39 RDW-SD 63.7 femtoliters (High)?? 06/23/2024 00:39 MPV 10.6 femtoliters ()?? 06/23/2024 00:39 Nucleated RBC (Automated) 0.0 #/100 WBC'S ()?? 06/23/2024 00:39 Abs. NRBC 0.0 k/mm3 ()?? 06/23/2024 00:39 Abs. Neut 0.8 k/mm3 (Low)?? 06/22/2024 14:03 Abs. Lymph 0.5 k/mm3 (Low)?? 06/22/2024 14:03 Abs. Bullitt 0.1 k/mm3 (Low)?? 06/22/2024 14:03 Abs. Eo 0.2 k/mm3 ()?? 06/22/2024 14:03 Abs. Baso 0.0 k/mm3 ()?? 06/22/2024 14:03 Neut % 42.5 % (Low)?? 06/22/2024 14:03 Lymph % 31.5 % ()?? 06/22/2024 14:03 Bullitt % 7.1 % ()?? 06/22/2024 14:03 Eos % 11.8 % (High)?? 06/22/2024 14:03 Baso % 1.6 % ()?? 06/22/2024 14:03 Band % 5.5 % (High)?? 06/22/2024 14:03 RBC Morphology MARKED ()?? 06/22/2024 14:03 Platelet Estimate ADEQUATE ()?? 06/22/2024 14:03 ?? CHEM GENERAL Sodium 142 mmol/L ()?? 06/22/2024 14:03 Potassium 5.5 mmol/L (High)?? 06/22/2024 14:03 Chloride 110 mmol/L (High)?? 06/22/2024 14:03 Bicarbonate Level 22 mmol/L ()?? 06/22/2024 14:03 Anion Gap 10 mmol/L ()?? 06/22/2024 14:03 Glucose Level 149 mg/dL (High)?? 06/22/2024 14:03 BUN 76 mg/dL (High)?? 06/22/2024 14:03 Creatinine-Blood 2.07 mg/dL (High)?? 06/22/2024 14:03 Estimated GFR Creatinine 35 ML/MIN/1.73 M2 ()?? 06/22/2024 14:03 Calcium 9.6 mg/dL ()?? 06/22/2024 14:03 Protein, Total 6.7 Gm/dL ()?? 06/22/2024 14:03 Albumin 4.1 Gm/dL ()?? 06/22/2024 14:03 AG Ratio 1.6 ()?? 06/22/2024 14:03 Alkaline Phosphatase 68 units/L ()?? 06/22/2024 14:03 AST (SGOT) 18 units/L ()?? 06/22/2024 14:03 ALT (SGPT) 30 units/L ()?? 06/22/2024 14:03 Bilirubin, Total 0.6 mg/dL ()?? 06/22/2024 14:03 ?? URINE OTHER Est Creatinine Clearance 36.40 mL/min ()?? 06/22/2024 14:46 ? EKG study * Event Display: ECG 12-Lead Authored Date: Please click on pdf link to open report * Event Display: ECG 12-Lead Authored Date: Ventricular Rate: 87 BPM Atrial Rate: 87 BPM P-R Interval: 148 ms QRS Duration: 82 ms Q-T Interval: 356 ms QTC Calculation(Bazett): 428 ms P [place]: 4 degrees R [place]: -3 degrees T [place]: 5 degrees Suspect electrode reversal: V2 V3 ; interpretation assumes no reversal Normal sinus rhythm Minimal voltage criteria for LVH, may be normal variant ( Stem product ) Borderline ECG When compared with ECG of 02-Jun-2024 20:34, No significant change was found Confirmed by GERALD MENDOZA ([id number]) on 06/22/2024 2:11:47 PM [place]: GERALD MENDOZA [facility] Progress note * Fariha Santana: PERFORM, MODIFY Event Display: Progress Note Hospital Authored Date: [id number] Patient: ??FERNANDEZ LAW ? Age:??64 Years?Sex:??Male?:??1960?? Subjective Cr 1.44 mg/dL today, downtrending K 5.4 today, Lokelma ordered No acute complaints at time of visit.?? Review of Systems Negative except as mentioned above?? Objective Measurements?? Height: 175 cm (06/23/24) Weight: 73.8 kg (06/23/24) Dry Weight: 73.8 kg (06/23/24) Body Mass Index: 24.1 kg/m2 (06/23/24) ? Vital Signs?? Temperature: 98.4 DegF (06/24/24 08:30:00) Temperature Route: Oral (06/24/24 08:30:00) Pulse Rate: 75 bpm (06/24/24 08:30:00) Respiratory Rate: 22 br/min (06/24/24 08:30:00) Systolic Blood Pressure: 133 mm Hg (06/24/24 08:30:00) Diastolic Blood Pressure: 76 mm Hg (06/24/24 08:30:00) Pulse Pressure: 57 mm Hg (06/24/24 08:30:00) Oxygen Saturation: 100 % (06/24/24 08:30:00) Mode of Delivery (Oxygen): Room air (06/24/24 08:30:00) Early Warning Score: 5 (06/24/24 10:19:33) ? Intake/Output? 06/22 23:02 06/24 07:00 06/23 07:00 06/22 07:00 06/21 07:00 ?? 06/24 10:34 06/24 10:34 06/24 06:59 06/23 06:59 06/22 06:59 Intake ?680 ?0 ?0 ?680 ?0 Output ?0 ?0 ?0 ?0 ?0 Net Total ?680 ?0 ?0 ?680 ?0 ? Physical Exam Physical Exam: General: Patient appears in no acute distress.?? HEENT: Moist mucous membranes noted.?? Cardiovascular: Regular rate and rhythm. Respiratory: Equal chest rise and fall?? Abdominal: Soft Extremities: No peripheral edema.??All extremities warm to touch Neuro: Alert and oriented to person, place, time. ?? _ Inpatient Medications Medications (16) Active SCHEDULED: (8) Magnesium Oxide 400 mg Tablet (magnesium oxide 400 mg oral tablet) ??400 mg, By Mouth, 2 times a day NaCl 0.9% Flush 3ml (NaCL 0.9% Flush) ??3 mL, IV Push, Every 8 hours Pantoprazole 40 mg EC Tablet (pantoprazole 40 mg oral delayed release tablet) ??40 mg, By Mouth, Daily Sodium Zirconium 10 Gm Packet (Lokelma Packet) ??10 Gm 1 pack/packet, By Mouth, Once Tacrolimus 1 mg Capsule (tacrolimus 1 mg oral capsule) ??4 mg, By Mouth, Daily at bedtime Tacrolimus 1 mg Capsule (tacrolimus 1 mg oral capsule) ??3 mg, By Mouth, Daily before breakfast Urea 15 Gm Powder (Urea Powder) ??15 Gm, By Mouth, 2 times a day Ursodiol 300 mg Capsule (ursodiol 300 mg [...] Recent Labs BLOOD BANK RBC Unit ID [id number] ()?? 06/23/2024 02:08 RBC Available PT ()?? 06/23/2024 02:08 ?? BLOOD COUNT & DIFF WBC 2.1 k/mm3 (Low)?? 06/23/2024 17:45 RBC 2.30 m/mm3 (Low)?? 06/23/2024 17:45 Hgb 6.9 Gm/dL (Low)?? 06/23/2024 17:45 Hct 20.9 % (Low)?? 06/23/2024 17:45 MCV 90.9 femtoliters ()?? 06/23/2024 17:45 MCH 30.0 pg ()?? 06/23/2024 17:45 MCHC 33.0 Gm/dL ()?? 06/23/2024 17:45 Platelet Count 189 k/mm3 ()?? 06/23/2024 17:45 RDW-SD 61.1 femtoliters (High)?? 06/23/2024 17:45 MPV 10.4 femtoliters ()?? 06/23/2024 17:45 Nucleated RBC (Automated) 0.0 #/100 WBC'S ()?? 06/23/2024 17:45 Abs. NRBC 0.0 k/mm3 ()?? 06/23/2024 17:45 Abs. Neut 0.8 k/mm3 (Low)?? 06/23/2024 17:45 Abs. Lymph 0.5 k/mm3 (Low)?? 06/23/2024 17:45 Abs. Bullitt 0.5 k/mm3 ()?? 06/23/2024 17:45 Abs. Eo 0.2 k/mm3 ()?? 06/23/2024 17:45 Abs. Baso 0.0 k/mm3 ()?? 06/23/2024 17:45 Neut % 38.1 % (Low)?? 06/23/2024 17:45 Lymph % 23.8 % ()?? 06/23/2024 17:45 Bullitt % 25.2 % (High)?? 06/23/2024 17:45 Eos % 11.4 % (High)?? 06/23/2024 17:45 Baso % 0.5 % ()?? 06/23/2024 17:45 Retic Count 1.7 % ()?? 06/23/2024 09:32 Retic Count Corrected 0.8 % (Low)?? 06/23/2024 09:32 Retic Production Index 0.4 % (Low)?? 06/23/2024 09:32 Imm Gran 1.0 % ()?? 06/23/2024 17:45 Abs. Imm Gran 0.0 k/mm3 ()?? 06/23/2024 17:45 ?? CHEM GENERAL Sodium 139 mmol/L ()?? 06/24/2024 09:13 Potassium 5.4 mmol/L (High)?? 06/24/2024 09:13 Chloride 109 mmol/L (High)?? 06/24/2024 09:13 Bicarbonate Level 19 mmol/L (Low)?? 06/24/2024 09:13 Anion Gap 11 mmol/L ()?? 06/24/2024 09:13 Glucose Level 105 mg/dL (High)?? 06/24/2024 09:13 BUN 56 mg/dL (High)?? 06/24/2024 09:13 Creatinine-Blood 1.44 mg/dL (High)?? 06/24/2024 09:13 Estimated GFR Creatinine 55 ML/MIN/1.73 M2 ()?? 06/24/2024 09:13 Calcium 9.3 mg/dL ()?? 06/24/2024 09:13 Protein, Total 7.1 Gm/dL ()?? 06/24/2024 09:13 Albumin 4.0 Gm/dL ()?? 06/24/2024 09:13 AG Ratio 1.3 ()?? 06/24/2024 09:13 LDH 216 units/L ()?? 06/23/2024 06:57 Alkaline Phosphatase 72 units/L ()?? 06/24/2024 09:13 AST (SGOT) 23 units/L ()?? 06/24/2024 09:13 ALT (SGPT) 24 units/L ()?? 06/24/2024 09:13 Bilirubin, Total 1.0 mg/dL ()?? 06/24/2024 09:13 Vitamin B12 Level 602 pg/mL ()?? 06/23/2024 06:57 Iron Level 204 mcg/dL (High)?? 06/23/2024 06:57 Iron Binding Capacity, Unsaturated <17 mcg/dL (Low)?? 06/23/2024 06:57 Iron Binding Capacity, Estimated Total Unable to calculate total iron binding capacity due to the low mcg/dL ()?? 06/23/2024 06:57 % Iron Saturation Unable to calculate % iron saturation due to the low unsaturated iron % ()?? 06/23/2024 06:57 Ferritin Level 3628 ng/mL (High)?? 06/23/2024 06:57 ?? IMMUNOLOGY GENERAL Haptoglobin <10 mg/dL (Low)?? 06/23/2024 06:57 ?? UA/URINALYSIS Appear/Color, Urine LIGHT YELLOW ()?? 06/23/2024 19:25 Specific [place], Urine 1.016 ()?? 06/23/2024 19:25 pH, Urine 7.5 ()?? 06/23/2024 19:25 Albumin, Urine NEGATIVE ()?? 06/23/2024 19:25 Glucose, Urine NEGATIVE ()?? 06/23/2024 19:25 Ketones, Urine NEGATIVE ()?? 06/23/2024 19:25 Bilirubin, Urine NEGATIVE ()?? 06/23/2024 19:25 Hemoglobin, Urine NEGATIVE ()?? 06/23/2024 19:25 Nitrite, Urine NEGATIVE ()?? 06/23/2024 19:25 Leukocyte, Urine NEGATIVE ()?? 06/23/2024 19:25 Urobilinogen NORMAL mg/dL ()?? 06/23/2024 19:25 WBC's, Urine <1 /HPF ()?? 06/23/2024 19:25 RBC's, Urine <1 /HPF ()?? 06/23/2024 19:25 ?? URINE OTHER Creatinine, Urine Random 56.5 mg/dL ()?? 06/23/2024 19:25 Sodium, Urine Random 102 mmol/L ()?? 06/23/2024 19:25 Chloride, Urine Random 86 mmol/L ()?? 06/23/2024 19:25 Osmolality, Urine Random 548 mOsm/kg ()?? 06/23/2024 19:25 Est Creatinine Clearance 52.33 mL/min ()?? 06/24/2024 10:19 ? Assessment/Plan Fernandez??Heath??is a 64-year-old male with??past medical history of cirrhosis secondary to hepatitis C status post liver transplant in July 2023 at [place] (on tacrolimus), chronic kidney disease, myelodysplastic syndrome on EPO injections, transfusion dependent who presented to the emergencydepartment in the setting of low hemoglobin.??Pt was admitted for anemia and JAVIER, Nephrology consulted for JAVIER.? 1. JAVIER BL Cr ~1.1 mg/dL Cr peaked at??2.07 mg/dL, now improving Likely a prerenal JAVIER 2/2 anemia requiring transfusion, supported by improvement following transfusion. [place] UA not suggestive of GN, AIN.? 2. Liver Transplant History of??cirrhosis secondary to hepatitis C and alcohol use disorder status post liver transplant in??July 2023 at [facility] Chronically pt is taking tacrolimus 3 mg AM / tacrolimus 4 mg PM Transplant team can be contacted at [phone], previously stated goal tacrolimus level of 5-7.??If tacrolimus needs to be adjusted, please discuss with transplant team prior to adjusting. ?? Tacrolimus level in process ?? 3. Anemia Presented with Hgb 5.4 - s/p pRBC transfusion TSat <17, Ferritin 3628 (06/23) History of??myelodysplastic syndrome receiving weekly erythropoietin ?? 4. History of hyponatremia In setting of SIADH Chronically takes urea 15 gm BID ?? Recommendations:?? - Daily renal panel - Monitor I/Os - Continue tacrolimus 3 mg AM / tacrolimus 4 mg PM - Daily tacrolimus level (to be drawn BEFORE AM dose) -??Monitor Hgb, transfuse if Hgb < 7?Thank you,??will continue to follow. ?Fariha Gurrola PA-C ?[facility] ?Discussed with ??Clari * Madison Montague MD: PERFORM Event Display: Progress Note Hospital Authored Date: Patient and charted reviewed. Management discussed with DANA. ??Continue the current management as documented in PA's chart. Tac levels pending * Maryam Wang MD: PERFORM Event Display: Progress Note Hospital Authored Date: Patient: ??FERNANDEZ LAW ? Age:??64 Years?Sex:??Male?:??1960?? Subjective Patient seen and examined in the Emergency room s/p 2 units pf PRBCs?? He states that he has been requiring blood transfusion almost every 2 weeks denies any??black stools or blood in stools; no c/p or shortness of breath he didn't eat much today because the food was cold when they brought it??to him Review of Systems ROS as above otherwise negative Objective Vital Signs?? Temperature: 98.2 DegF (06/23/24 09:16:00) Temperature Route: Oral (06/23/24 09:16:00) Pulse Rate: 76 bpm (06/23/24 13:20:00) Respiratory Rate: 19 br/min (06/23/24 13:20:00) Systolic Blood Pressure:??139 mm Hg??High (06/23/24 13:20:00) Diastolic Blood Pressure: 84 mm Hg (06/23/24 13:20:00) Blood pressure sites: Arm, left (06/23/24 09:16:00) Mean Arterial Pressure: 102 mm Hg (06/23/24 09:16:00) Pulse Pressure: 55 mm Hg (06/23/24 13:20:00) Oxygen Saturation: 100 % (06/23/24 13:20:00) Mode of Delivery (Oxygen): Room air (06/23/24 13:20:00) Early Warning Score: 3 (06/23/24 13:21:50) ? Intake/Output? 06/22 23:02 06/23 07:00 06/22 07:00 06/21 07:00 06/20 07:00 ?? 06/23 17:18 06/23 17:18 06/23 06:59 06/22 06:59 06/21 06:59 Intake ?680 ?0 ?680 ?0 ?0 Output ?0 ?0 ?0 ?0 ?0 Net Total ?680 ?0 ?680 ?0 ?0 ? Physical Exam Constitutional: Alert, in no distress. Mental Status: Oriented to person, place and time. Respiratory: Clear to auscultation. No wheezing, rales or rhonchi. Cardiovascular: S1 S2 regular. No murmurs, rubs or gallops. Gastrointestinal: Abdomen soft, non-tender, non-distended.?? Neurologic: No focal neurological deficits. Musculoskeletal: No cyanosis or clubbing. No gross deformities.?? Psychiatric: Normal mood and affect _ Inpatient Medications Medications (16) Active SCHEDULED: (7) Magnesium Oxide 400 mg [...] mg Capsule (tacrolimus 1 mg oral capsule) ??3 mg, By Mouth, Daily before breakfast Urea 15 Gm Powder (Urea Powder) ??15 Gm, By Mouth, 2 times a day Ursodiol 300 mg Capsule (ursodiol 300 mg [...] BLOOD BANK Blood Type O Positive ()?? 06/22/2024 15:48 Antibody Screen Negative ()?? 06/22/2024 15:48 RBC Unit ID [id number] ()?? 06/23/2024 02:08 RBC Available IS ()?? 06/23/2024 02:08 ?? BLOOD COUNT & DIFF WBC 2.4 k/mm3 (Low)?? 06/23/2024 09:32 RBC 2.33 m/mm3 (Low)?? 06/23/2024 09:32 Hgb 7.1 Gm/dL (Low)?? 06/23/2024 09:32 Hct 20.5 % (Low)?? 06/23/2024 09:32 MCV 88.0 femtoliters ()?? 06/23/2024 09:32 MCH 30.5 pg ()?? 06/23/2024 09:32 MCHC 34.6 Gm/dL ()?? 06/23/2024 09:32 Platelet Count 202 k/mm3 ()?? 06/23/2024 09:32 RDW-SD 57.5 femtoliters (High)?? 06/23/2024 09:32 MPV 10.1 femtoliters ()?? 06/23/2024 09:32 Nucleated RBC (Automated) 0.0 #/100 WBC'S ()?? 06/23/2024 09:32 Abs. NRBC 0.0 k/mm3 ()?? 06/23/2024 09:32 Abs. Neut 0.8 k/mm3 (Low)?? 06/22/2024 14:03 Abs. Lymph 0.5 k/mm3 (Low)?? 06/22/2024 14:03 Abs. Bullitt 0.1 k/mm3 (Low)?? 06/22/2024 14:03 Abs. Eo 0.2 k/mm3 ()?? 06/22/2024 14:03 Abs. Baso 0.0 k/mm3 ()?? 06/22/2024 14:03 Neut % 42.5 % (Low)?? 06/22/2024 14:03 Lymph % 31.5 % ()?? 06/22/2024 14:03 Bullitt % 7.1 % ()?? 06/22/2024 14:03 Eos % 11.8 % (High)?? 06/22/2024 14:03 Baso % 1.6 % ()?? 06/22/2024 14:03 Band % 5.5 % (High)?? 06/22/2024 14:03 RBC Morphology MARKED ()?? 06/22/2024 14:03 Platelet Estimate ADEQUATE ()?? 06/22/2024 14:03 Retic Count 1.7 % ()?? 06/23/2024 09:32 Retic Count Corrected 0.8 % (Low)?? 06/23/2024 09:32 Retic Production Index 0.4 % (Low)?? 06/23/2024 09:32 ?? CHEM GENERAL Sodium 142 mmol/L ()?? 06/23/2024 06:57 Potassium 5.2 mmol/L ()?? 06/23/2024 06:57 Chloride 109 mmol/L (High)?? 06/23/2024 06:57 Bicarbonate Level 22 mmol/L ()?? 06/23/2024 06:57 Anion Gap 11 mmol/L ()?? 06/23/2024 06:57 Glucose Level 98 mg/dL ()?? 06/23/2024 06:57 BUN 56 mg/dL (High)?? 06/23/2024 06:57 Creatinine-Blood 1.73 mg/dL (High)?? 06/23/2024 06:57 Estimated GFR Creatinine 44 ML/MIN/1.73 M2 ()?? 06/23/2024 06:57 Calcium 9.5 mg/dL ()?? 06/23/2024 06:57 Protein, Total 6.7 Gm/dL ()?? 06/22/2024 14:03 Albumin 4.1 Gm/dL ()?? 06/22/2024 14:03 AG Ratio 1.6 ()?? 06/22/2024 14:03 LDH 216 units/L ()?? 06/23/2024 06:57 Alkaline Phosphatase 68 units/L ()?? 06/22/2024 14:03 AST (SGOT) 18 units/L ()?? 06/22/2024 14:03 ALT (SGPT) 30 units/L ()?? 06/22/2024 14:03 Bilirubin, Total 0.6 mg/dL ()?? 06/22/2024 14:03 Vitamin B12 Level 602 pg/mL ()?? 06/23/2024 06:57 Iron Level 204 mcg/dL (High)?? 06/23/2024 06:57 Iron Binding Capacity, Unsaturated <17 mcg/dL (Low)?? 06/23/2024 06:57 Iron Binding Capacity, Estimated Total Unable to calculate total iron binding capacity due to the low mcg/dL ()?? 06/23/2024 06:57 % Iron Saturation Unable to calculate % iron saturation due to the low unsaturated iron % ()?? 06/23/2024 06:57 Ferritin Level 3628 ng/mL (High)?? 06/23/2024 06:57 ?? IMMUNOLOGY GENERAL Haptoglobin <10 mg/dL (Low)?? 06/23/2024 06:57 ?? URINE OTHER Est Creatinine Clearance 43.56 mL/min ()?? 06/23/2024 07:43 ? Assessment/Plan ? Diagnoses 1. ??JAVIER (acute kidney injury) ??(N17.9) 2. ??Acute on chronic anemia ??(D64.9) 3. ??GERD without esophagitis ??(K21.9) 4. ??Status post liver transplant ??(Z94.4) 5. ??Leukopenia ??(D72.819) 6. ??Hyponatremia ??(E87.1) ?? Assessment:??This is a 64-year-old male past medical history of cirrhosis secondary to hepatitis C status post liver transplant in July 2023 at [place] (on tacrolimus), chronic kidney disease, myelodysplastic syndrome on EPO injections, transfusion dependent who is presenting to the emergency de partment in the setting of low hemoglobin.?Undergoing??PRBC transfusion. ?? 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 no signs of active bleeding. ?? Leukopenia is likely in setting of myelodysplastic syndrome although if patient spikes fever, low threshold for abx. recheck in AM with differential ?? s/p 2 units PRBCs Hgb up to 7.1 this morning Hematology consulted and added on blood tests; pending their official evaluation and recommendation ?? Acute kidney injury Hyperkalemia Renal consult appreciated Acute kidney injury is likely prerenal; creat trended down - f/u urine Na and creat - IV fluids NS 75cc/h x 1 liter?? - recheck renal profile in am?? - daily tacrolimus level, if needs to be adjusted, would discuss with transplant team first ([phone]);??previously stated goal tacrolimus level of 5-7. ?? Status post liver transplantation Hepatitis C History of alcohol use Status post liver transplant July 2023 [place].??On last hospitalization his tacrolimus dose was changed to 3 mg in a.m. and 4 mg in the p.m. follows up with??transplant team??[phone] ?? Plan: ??? Continue tacrolimus 3 mg in the morning and 4 mg nightly ??? Tacrolimus level in a.m. ??? Continue ursodiol twice daily ??? Follow-up with transplant team ?? History of Hyponatremia:??Patient was recently here for hyponatremia.??He states he has continued to take??[facility] GERD: Continue PPI ?? DVT prophylaxis: activity, SCDs CODE STATUS: Full Diet: Regular ? 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 , martin blood transfusion Janina Gastelum RN - 06/24/2024 17:02 EST Discharge Level of Care at Discharge : Home/Fdc/Foster Care Patient Left Unit Via : Wheelchair Patient Accompanied Off Unit with : Responsible adult DC Instructions Provided & Signed by Pt : Yes Patient Understands D/C Instructions : Yes Verbalized Understanding of D/C Plan By : Patient Patient Instructions Discharge Signed : Yes Did Pt have Specialty Bed or Wound Vac : No Janina Gastelum RN - 06/24/2024 16:42 EST * Magy PEREZ, [place]: PERFORM Event Display: Discharge/Transfer Note Hospital Authored Date: [id number] Patient: ??HEATH, FERNANDEZ ? Age:??64 Years?Sex:??Male?:??1960?? Patient Information Discharge Location: Primary Care Physician: Maxine Victoria MD Admit Date/Time: 06/22/2024 23:02 Discharge Date:??06/24/2024 16:21 Discharge Disposition Discharge Disposition: Home: No Services Discharge Diagnosis JAVIER (acute kidney injury) (N17.9) Acute on chronic anemia (D64.9) GERD without esophagitis (K21.9) Status post liver transplant (Z94.4) Leukopenia (D72.819) Hyponatremia (E87.1) JAVIER (acute kidney injury) (N17.9) Myelodysplastic syndrome (D46.9) _ Discharge Medications Darbepoetin Penelope (darbepoetin penelope [...] 3 times a day ? Medications Started None Medications Discontinued None Doses Changed None Allergies Allergies ?(Active and Proposed Allergies Only) NKA? (Severity: Unknown severity, Onset: Unknown) ? Hospital Course ??This is a 64-year-old male past medical history of cirrhosis secondary to hepatitis C status postliver transplant in July 2023 at [place] (on tacrolimus), chronic kidney disease, myelodysplastic syndrome on EPO injections, transfusion dependent who is presenting to the emergency department in the setting of low hemoglobin.?? Patient had routine labs done??on 06/22??when his provider at the [facility] alerted him that he had a severely low hemoglobin and to present to the emergency department for possible transfusion. Pt did not had??any active complaints at this time. ??He does tell me that this is a chronic issue for him and he has an upcoming appointment with hematology in July??for further evaluation. Lab work in ER showed an H/H of 5.4/16.7 and his renal profile showed a creatinine of 2.07??with a potassium of 5.5.?? Patient was admitted for further evaluation. ? Acute on chronic anemia Myelodysplastic syndrome Acute kidney injury Leukopenia Patient has a well-known history of acute on chronic anemia requiring transfusions.?? He has a history of myelodysplastic syndrome and receives EPO injections biweekly.?? He again presents due to abnormal lab work and severely low hemoglobin.?? He has an upcoming appointment with hematology in July to further discuss his treatment options. No signs of active bleeding. Acute kidney injury is likely prerenal in the setting of severely low hemoglobin.?? Will expect resolution with transfusion. Leukopenia is likely in setting of myelodysplastic syndrome Patient received 2 units of packed RBCs??in the emergency room and the repeat hemoglobin today was still low at 6.9 Patient was given another half a unit today. Hematology consulted and hemolytic??labs ordered. His??haptoglobin levels were less than 10 concerning for hemolysis. Glo antibody test was ordered and is currently pending. ? Plan: ??? Patient will need??close hematology follow-up in the outpatient setting - He might need treatment for hemolytic anemia based on test results. ??Status post liver transplantation Hepatitis C History of alcohol use Status post liver transplant July 2023 [place].?? On last hospitalization his tacrolimus dose was changed to 3 mg in a.m. and 4 mg in the p.m. ?? Plan: ??? Continue tacrolimus at his home dose of 4 mg twice a day ??? Continue ursodiol twice daily ??? Close follow-up with transplant team ?? Acute kidney injury; patient presented with a creatinine of 2.09??and he appeared volume depleted. ??With blood transfusion and fluid??administration his creatinine now improved to 1.44 He has chronic hyperkalemia and is on scheduled Lokelma which she will continue. ?? Hyponatremia:??Patient was recently here for hyponatremia. ??He states he has continued to take??[facility]??he will be continued on the urea powder now??sodium GERD: Continue PPI ?? Patient would need repeat??lab work in a couple of days??and to follow-up with primary care physician. Objective Assessment and Plan ? Vital Signs?? Temperature: 98.7 DegF (06/24/24 13:30:00) Temperature Route: Oral (06/24/24 13:30:00) Pulse Rate: 68 bpm (06/24/24 13:30:00) Respiratory Rate: 18 br/min (06/24/24 13:30:00) Systolic Blood Pressure:??146 mm Hg??High (06/24/24 13:30:00) Diastolic Blood Pressure:??88 mm Hg??High (06/24/24:30:00) Blood pressure sites: Arm, left (06/24/24 13:30:00) Mean Arterial Pressure: 107 mm Hg (06/24/24 13:30:00) Pulse Pressure: 58 mm Hg (06/24/24 13:30:00) Oxygen Saturation: 100 % (06/24/24 13:30:00) Mode of Delivery (Oxygen): Room air (06/24/24 13:30:00) Early Warning Score: 3 (06/24/24 14:01:39) ? . Physical Exam Constitutional: Alert, in no distress. Mental Status: Oriented to person, place and time. Head: Normocephalic. Eyes: Pupils are equal, round and reactive to light. Ear, Nose and Throat: Oropharynx clear, mucous membranes moist. Neck: Supple, Full range of motion. Respiratory: Clear to auscultation. No wheezing, rales or rhonchi. Cardiovascular: S1 S2 regular. No murmurs, rubs or gallops. Gastrointestinal: Abdomen soft, laparotomy is??scar from recent liver transplantation noted Genitourinary: No costovertebral angle tenderness. Neurologic: Cranial nerves II-XII grossly intact. No focal neurological deficits. nodes. Psychiatric: Normal mood and affect Pending Results Add On Lab Order ordered on 06/23/2024 Add On Lab Order ordered on 06/23/2024 Add On Lab Order ordered on 06/23/2024 Hold Lavender Tube (BB) ordered on 06/22/2024 Immunofixation Serum ordered on 06/24/2024 Protein Electrophoresis ordered on 06/24/2024 Tacrolimus Level ordered on 06/24/2024 Transfuse RBCs ordered on 06/22/2024 Transfuse RBCs ordered on 06/23/2024 Transfuse RBCs ordered on 06/24/2024 Follow-Up Appointments Added Follow Up ?Time Frame ?Comments Maxine Victoria MD?3-5 day: call to discuss follow up visit Patient Instructions Please get a repeat CBC and basic metabolic panel??with your primary care physician in the next 48 hours Home Health Face to Face ^HomeHealthFTF Results Discharge Labs BLOOD BANK Blood Type O Positive ()?? 06/22/2024 15:48 Antibody Screen Negative ()?? 06/22/2024 15:48 Direct Antiglobulin Test, Anti-IgG Anti-IgG : Negative ()?? 06/24/2024 11:25 RBC Unit ID [id number] ()?? 06/24/2024 13:39 RBC Available IS ()?? 06/24/2024 13:39 ? BLOOD COUNT & DIFF WBC 2.0 k/mm3 (Low)?? 06/24/2024 11:47 RBC 2.24 m/mm3 (Low)?? 06/24/2024 11:47 Hgb 6.9 Gm/dL (Low)?? 06/24/2024 11:47 Hct 20.3 % (Low)?? 06/24/2024 11:47 MCV 90.6 femtoliters ()?? 06/24/2024 11:47 MCH 30.8 pg ()?? 06/24/2024 11:47 MCHC 34.0 Gm/dL ()?? 06/24/2024 11:47 Platelet Count 180 k/mm3 ()?? 06/24/2024 11:47 RDW-SD 61.2 femtoliters (High)?? 06/24/2024 11:47 MPV 10.7 femtoliters ()?? 06/24/2024 11:47 Nucleated RBC (Automated) 0.0 #/100 WBC'S ()?? 06/24/2024 11:47 Abs. NRBC 0.0 k/mm3 ()?? 06/24/2024 11:47 Abs. Neut 0.7 k/mm3 (Low)?? 06/24/2024 11:47 Abs. Lymph 0.5 k/mm3 (Low)?? 06/24/2024 11:47 Abs. Bullitt 0.5 k/mm3 ()?? 06/24/2024 11:47 Abs. Eo 0.3 k/mm3 ()?? 06/24/2024 11:47 Abs. Baso 0.0 k/mm3 ()?? 06/24/2024 11:47 Neut % 33.5 % (Low)?? 06/24/2024 11:47 Lymph % 26.0 % ()?? 06/24/2024 11:47 Bullitt % 27.0 % (High)?? 06/24/2024 11:47 Eos % 13.0 % (High)?? 06/24/2024 11:47 Baso % 0.0 % ()?? 06/24/2024 11:47 Band % 5.5 % (High)?? 06/22/2024 14:03 RBC Morphology MARKED ()?? 06/22/2024 14:03 Platelet Estimate ADEQUATE ()?? 06/22/2024 14:03 Retic Count 1.7 % ()?? 06/23/2024 09:32 Retic Count Corrected 0.8 % (Low)?? 06/23/2024 09:32 Retic Production Index 0.4 % (Low)?? 06/23/2024 09:32 Imm Gran 0.5 % ()?? 06/24/2024 11:47 Abs. Imm Gran 0.0 k/mm3 ()?? 06/24/2024 11:47 ?? CHEM GENERAL Sodium 139 mmol/L ()?? 06/24/2024 09:13 Potassium 5.4 mmol/L (High)?? 06/24/2024 09:13 Chloride 109 mmol/L (High)?? 06/24/2024 09:13 Bicarbonate Level 19 mmol/L (Low)?? 06/24/2024 09:13 Anion Gap 11 mmol/L ()?? 06/24/2024 09:13 Glucose Level 105 mg/dL (High)?? 06/24/2024 09:13 BUN 56 mg/dL (High)?? 06/24/2024 09:13 Creatinine-Blood 1.44 mg/dL (High)?? 06/24/2024 09:13 Estimated GFR Creatinine 55 ML/MIN/1.73 M2 ()?? 06/24/2024 09:13 Calcium 9.3 mg/dL ()?? 06/24/2024 09:13 Protein, Total 7.1 Gm/dL ()?? 06/24/2024 09:13 Albumin 4.0 Gm/dL ()?? 06/24/2024 09:13 AG Ratio 1.3 ()?? 06/24/2024 09:13 LDH 216 units/L ()?? 06/23/2024 06:57 Alkaline Phosphatase 72 units/L ()?? 06/24/2024 09:13 AST (SGOT) 23 units/L ()?? 06/24/2024 09:13 ALT (SGPT) 24 units/L ()?? 06/24/2024 09:13 Bilirubin, Total 1.0 mg/dL ()?? 06/24/2024 09:13 Vitamin B12 Level 602 pg/mL ()?? 06/23/2024 06:57 Iron Level 204 mcg/dL (High)?? 06/23/2024 06:57 Iron Binding Capacity, Unsaturated <17 mcg/dL (Low)?? 06/23/2024 06:57 Iron Binding Capacity, Estimated Total Unable to calculate total iron binding capacity due to the low mcg/dL ()?? 06/23/2024 06:57 % Iron Saturation Unable to calculate % iron saturation due to the low unsaturated iron % ()?? 06/23/2024 06:57 Ferritin Level 3628 ng/mL (High)?? 06/23/2024 06:57 ?? IMMUNOLOGY GENERAL IgG 1564 mg/dL ()?? 06/24/2024 09:13 IgA 227 mg/dL ()?? 06/24/2024 09:13 IgM 44 mg/dL ()?? 06/24/2024 09:13 Free [place] Light Chains 82.1 mg/L (High)?? 06/24/2024 09:13 Free Lambda Light Chains 56.2 mg/L (High)?? 06/24/2024 09:13 Free KappaRatio 1.46 ()?? 06/24/2024 09:13 Haptoglobin <10 mg/dL (Low)?? 06/23/2024 06:57 ? TOXICOLOGY/TDM Tacrolimus Level 8.8 ng/mL ()?? 06/24/2024 09:13 ? UA/URINALYSIS Appear/Color, Urine LIGHT YELLOW ()?? 06/23/2024 19:25 Specific [place], Urine 1.016 ()?? 06/23/2024 19:25 pH, Urine 7.5 ()?? 06/23/2024 19:25 Albumin, Urine NEGATIVE ()?? 06/23/2024 19:25 Glucose, Urine NEGATIVE ()?? 06/23/2024 19:25 Ketones, Urine NEGATIVE ()?? 06/23/2024 19:25 Bilirubin, Urine NEGATIVE ()?? 06/23/2024 19:25 Hemoglobin, Urine NEGATIVE ()?? 06/23/2024 19:25 Nitrite, Urine NEGATIVE ()?? 06/23/2024 19:25 Leukocyte, Urine NEGATIVE ()?? 06/23/2024 19:25 Urobilinogen NORMAL mg/dL ()?? 06/23/2024 19:25 WBC's, Urine <1 /HPF ()?? 06/23/2024 19:25 RBC's, Urine <1 /HPF ()?? 06/23/2024 19:25 Hold Urine Culture Testing available 48 hours from time of collection. ()?? 06/23/2024 19:25 ?? URINE OTHER Creatinine, Urine Random 56.5 mg/dL ()?? 06/23/2024 19:25 Sodium, Urine Random 102 mmol/L ()?? 06/23/2024 19:25 Chloride, Urine Random 86 mmol/L ()?? 06/23/2024 19:25 Osmolality, Urine Random 548 mOsm/kg ()?? 06/23/2024 19:25 Est Creatinine Clearance 52.33 mL/min ()?? 06/24/2024 10:19 ? 40??minutes spent on discharge * Nirav GASTON, Janina Jj: PERFORM Event Display: Patient Education/Instruction Authored Date: [id number] Inpatient Adult Discharge Instructions. [address] [address] Name: FERNANDEZ LAW : 1960?? Visit: 06/22/2024 23:02?? Current Date: 06/24/2024 16:42 ?? Account: [id number]?? Inpatient Adult Discharge Instructions We would like [...] and their families. Surveys are administered by [employer] ?? If further treatment with your primary care physician or another doctor is recommended, it is important for you to keep the appointment. Call your primary care physician or return to the Emergency Department immediately if your condition worsens, fails to improve, or new symptoms develop. If you need to find a doctor, you can call [facility] for a referral at [phone] or toll free at [phone] or log in to [email or web address].. ?? [facility], in keeping with [facility] guidance, no longer requires face masks [...] a health care zeinab of your choosing. [employer] is a website that allows you to securely view your medical information including your hospital discharge summary, office visit summaries, medications and follow-up visits. You can also request appointments, renew medications, and request access to your medical information using a health care zeinab of your choosing, or just ask a question. You can enroll at [email or web address] or register during your next office visit. You have been discharged from [facility], Patient Care Unit: S3??. If you have any questions regarding these instructions, including results of studies pending, afteryou leave, please call us and we will be happy to assist you 02/12. [facility] Your Care Team Attending Physician Indio Bhatti MD?? Consulting Providers Indio Bhatti MD?? Discharging Providers Indio Bhatti MD Reason for Your Visit acute on chronic anemia?? Your Diagnosis Acute on chronic anemia GERD without esophagitis Status post liver transplant Leukopenia Hyponatremia Myelodysplastic syndrome Tests Performed Below is a partial list of the tests performed during your hospitalization. You may have had other tests and procedures not included in this list. Please discuss all test results with your provider. Basic Metabolic Panel CBC CBC w/ Differential Chloride Urine Comprehensive Metabolic Panel Creatinine Urine Direct Glo Test FERRITIN Free [place] and Lambda Light Chains HAPTOGLOBIN HOLD URINE CULTURE Immunofixation Serum?-- Results Pending -- IRON & TIBC LDH Osmolality Urine RETICULOCYTE COUNT Sodium Urine Tacrolimus Level?-- Results Pending -- Urinalysis Complete VITAMIN B12 Add On Lab Order?? Basic Metabolic Panel?? CBC?? CBC w/ Differential?? Chloride Urine?? Complete Urinalysis (Urinalysis Complete)?? Comprehensive Metabolic Panel?? Creatinine Urine?? Direct Antiglobulin Test (Direct Glo Test)?? Ferritin?? Free [place] and Lambda Light Chains?? Haptoglobin?? Hold Lavender Tube (BB)?? Hold Urine Culture?? Immunofixation Serum?? Iron + Iron Binding Capacity (IRON & TIBC)?? LDH?? Osmolality Urine?? Protein Electrophoresis (SPEP)?? Reticulocyte Ct (RETICULOCYTE COUNT)?? Sodium Urine?? Tacrolimus Level?? Transfuse RBCs?? Vitamin B12 Level (VITAMIN B12)?? Primary Care Provider Maxine Victoria MD? Advance Directive Health Care Proxy on File Yes - Health Care Proxy Discharge Vitals Temperature: 98.7 DegF Height: 175 cm Pulse Rate: 68 bpm Weight: 73.8 kg Respiratory Rate: 18 br/min Body Mass Index: 24.1 kg/m2 Systolic Blood Pressure:??146 mm Hg??High Body surface area: 1.89 Diastolic Blood Pressure:??88 mm Hg??High ?? Oxygen Saturation: 100 % ?? Studies Pending All studies ordered during this hospital stay have been completed unless listed below. Please discuss all pending results with your provider listed above in these instructions. ?? Add On Lab Order?? Hold Lavender Tube (BB)?? Immunofixation Serum?? Protein Electrophoresis (SPEP)?? Tacrolimus Level?? Transfuse RBCs?? What to do next Instructions From Your Doctor Please get a repeat CBC and basic metabolic panel??with your primary care physician in the next 48 hours ?? Orders? 06/24/24 16:31:00 EST?? Prescriptions??, ??06/24/24 16:31:00 EST?? You Need to Schedule the Following Appointments Follow Up with??Maxine Victoria MD When:??Within 3-5 day: call to discuss follow up visit Where: [address] [place] [phone] (1) Discharge Medications HEATHFERNANDEZ :1960 Visit Date:06/22/2024 Medications: Please continue your medications until treatment is completed or stopped by your provider. Medications not listed below should be discontinued. Discuss any questions related to medications with your provider. What How Much When Instructions Next Dose Changed Tacrolimus (tacrolimus 1 mg oral capsule) 4 capsule Oral Twice a day 06/24 tonight Changed Ursodiol (ursodiol 300 mg oral capsule) 1 capsule Oral 3 times a day 06/24 tonight Unchanged Darbepoetin Penelope (darbepoetin penelope 300 mcg/ 0.6 mL injectable solution) 300 Microgram Subcutaneous Infusion Every 14 days resume home schedule Unchanged Magnesium Oxide (magnesium oxide 400 mg oral capsule) 1 capsule Oral Twice a day 06/24 tonight Unchanged Pantoprazole (pantoprazole 40 mg oral delayed release tablet) 1 tab(s) Oral Daily 06/25 tomorrow morning Unchanged sodium zirconium cyclosilicate (sodium zirconium cyclosilicate 5 g oral powder for reconstitution) 1 pack/packet Oral Daily 06/25 tomorrow morning Unchanged urea powder (urea 15 g oral powder for reconstitution) 15 gram Oral Daily 06/25 tomorrow morning ?? What How Much When Comments Stop Taking Miscellaneous Rx (BMP in 5 days) See instructions Pls send the results toMaxine Oquendo ?? Diagnosis: Acute kidney injury, anemia ?? Stop Taking Miscellaneous Rx (CBC in 5 days) See instructions Pls send the results to Dr Julien Goodman / ??Davin Allison ?? Diag: Acute kidney injury, anemia ?? Prescription Given During Visit No new medications prescribed at time of discharge.?? Laboratory Results Below is a partial list of the most recent Laboratory test results done prior to this discharge. You may have had other tests and procedures not included in this list. Please discuss all test resultswith your provider. Antibody Screen - Negative (06/22/2024) Blood Type - O Positive (06/22/2024) Est Creatinine Clearance - 52.33 mL/min (06/24/2024) RBC Available - IS (06/24/2024) RBC Unit ID - [id number] (06/24/2024) Basic Metabolic Panel (06/23/2024) ???Sodium - 142 mmol/L???Potassium - 5.2 mmol/L???Chloride - 109 mmol/L???Bicarbonate Level - 22 mmol/L???Anion Gap - 11 mmol/L???Glucose Level - 98 mg/dL???BUN - 56 mg/dL???Creatinine-Blood - 1.73 mg/dL???Estimated GFR Creatinine - 44 ML/MIN/1.73 M2???Calcium - 9.5 mg/dL CBC (06/23/2024) ???WBC - 2.4 k/mm3???RBC - 2.33 m/mm3???Hgb - 7.1 Gm/dL???Hct - 20.5 %???MCV - 88.0 femtoliters???MCH - 30.5 pg???MCHC - 34.6 Gm/dL???Platelet Count - 202 k/mm3???RDW-SD - 57.5 femtoliters???MPV - 10.1 femtoliters???Nucleated RBC (Automated) - 0.0 #/100 WBC'S???Abs. NRBC - 0.0 k/mm3 CBC w/ Differential (06/24/2024) ???WBC - 2.0 k/mm3???RBC - 2.24 m/mm3???Hgb - 6.9 Gm/dL???Hct - 20.3 %???MCV - 90.6 femtoliters???MCH - 30.8 pg???MCHC - 34.0 Gm/dL???Platelet Count - 180 k/mm3???RDW-SD - 61.2 femtoliters???MPV - 10.7 femtoliters???Nucleated RBC (Automated) - 0.0 #/100 WBC'S???Abs. NRBC - 0.0 k/mm3???Abs. Neut - 0.7 k/mm3???Abs. Lymph - 0.5 k/mm3???Abs. Bullitt - 0.5 k/mm3???Abs. Eo - 0.3 k/mm3???Abs. Baso - 0.0 k/mm3???Neut % - 33.5 %???Lymph % - 26.0 %???Bullitt % - 27.0 %???Eos % - 13.0 %???Baso % - 0.0 %???Imm Gran - 0.5 %???Abs. Imm Gran - 0.0 k/mm3 Chloride Urine (06/23/2024) ???Chloride, Urine Random - 86 mmol/L Comprehensive Metabolic Panel (06/24/2024) ???Sodium - 139 mmol/L???Potassium - 5.4 mmol/L???Chloride - 109 mmol/L???Bicarbonate Level - 19 mmol/L???Anion Gap - 11 mmol/L???Glucose Level - 105 mg/dL???BUN - 56 mg/dL???Creatinine-Blood - 1.44 mg/dL???Estimated GFR Creatinine - 55 ML/MIN/1.73 M2???Calcium - 9.3 mg/dL???Protein, Total - 7.1 Gm/ dL???Albumin - 4.0 Gm/dL???AG Ratio - 1.3???Alkaline Phosphatase - 72 units/L???AST (SGOT) - 23 units/L???ALT (SGPT) - 24 units/L???Bilirubin, Total - 1.0 mg/dL Creatinine Urine (06/23/2024) ???Creatinine, Urine Random - 56.5 mg/dL Direct Glo Test (06/24/2024) ???Direct Antiglobulin Test, Anti-IgG - Anti-IgG : Negative FERRITIN (06/23/2024) ???Ferritin Level - 3628 ng/mL Free [place] and Lambda Light Chains (06/24/2024) ???Free [place] Light Chains - 82.1 mg/L???Free Lambda Light Chains - 56.2 mg/L???Free [place]\Lambda Ratio - 1.46 HAPTOGLOBIN (06/23/2024) ? ?Haptoglobin - <10 mg/dL HOLD URINE CULTURE (06/23/2024) ???Hold Urine Culture - Testing available 48 hours from time of collection. IRON & TIBC (06/23/2024) ? ?Iron Level - 204 mcg/dL? ?Iron Binding Capacity, Unsaturated - <17 mcg/dL? ?Iron Binding Capacity, Estimated Total - Unable to calculate total iron binding capacity due to the low???% Iron Saturation - Unable to calculate % iron saturation due to the low unsaturated iron LDH (06/23/2024) ???LDH - 216 units/L Osmolality Urine (06/23/2024) ???Osmolality, Urine Random - 548 mOsm/kg RETICULOCYTE COUNT (06/23/2024) ???Retic Count - 1.7 %???Retic Count Corrected - 0.8 %???Retic Production Index - 0.4 % Sodium Urine (06/23/2024) ???Sodium, Urine Random - 102 mmol/L Urinalysis Complete (06/23/2024) ???Appear/Color, Urine - LIGHT YELLOW???Specific [place], Urine - 1.016???pH, Urine - 7.5???Albumin, Urine - NEGATIVE???Glucose, Urine - NEGATIVE???Ketones, Urine - NEGATIVE???Bilirubin, Urine - NEGATIVE???Hemoglobin, Urine - NEGATIVE???Nitrite, Urine - NEGATIVE???Leukocyte, Urine - NEGATIVE???Urobi linogen - NORMAL? ?WBC's, Urine - <1 /HPF? ?RBC's, Urine - <1 /HPF VITAMIN B12 (06/23/2024) ???Vitamin B12 Level - 602 pg/mL You will be contacted within 72 hours [...] Discharge Instructions. WebMD Ignite Patient Education - Anemia?? Valuables and Belongings I fully understand and agree that [facility] accepts no responsibility for all [...] of Valuable and Belonging List: With patient Possessions released to: No Personal Devices. Date for Pt to Sign Valuables/Belongings: 06/24/24 14:01:00 ?? Other Discharge Information ? Case Management Discharge Plan?? Discharge Plan?? Discharge Level of Care at Discharge: Home/Fdc/Foster Care ?? Pulmonary Rehab Status?? Pulmonary Rehab Discharge Status?? [...] are strongly encouraged to quit. Please call [facility] at [phone] or [phone]) or log in to [email or web address] for referrals to smoking cessation programs. ?? 977 Suicide & Crisis Lifeline is available 02/12 if you or someone you know needs to find a reason to keep living. By calling 790 you'll be connected to a skilled, trained counselor at a crisis center in your area. INPATIENT DISCHARGE INSTRUCTIONS SIGNATURE FERNANDEZ SIMPSON Location:[facility] Registration Date and Time:06/22/2024 23:02 EST Primary Care Physician: Maxine Victoria MD, Attending Physician: Magy PEREZ, Indio, I FERNANDEZ LAW, have received the above patient education materials/instructions and have verbalized understanding. If ambulance or transport services are being used I further acknowledge being given a choice of service. ?? If you need to contact me, please call me at this number: . Patient/Landscape Supervisor Name: Patient/Landscape Supervisor Signature: Relationship to Patient: Witness Name/Signature: Date: * Indio Bhatti MD: PERFORM, SIGN, VERIFY Event Display: Patient Education Handout Authored Date: [id number] * Janina Gastelum RN: PERFORM Event Display: Patient Education Leaflets Authored Date: [id number] Anemia ?? 30885 Anemia Anemia is a condition that occurs [...] of anemia that destroys red blood cells (hemolytic anemia). ??? Bone marrow aspiration and biopsy. These [...] more. ?? Last Reviewed Date: 2023 ?? [id number] The [employer]. All rights reserved. This information is not [...] Position: Reference Physician Member Role: PCP Address: [address] [place] [address] Telecom: Name: Edwin Serna RN Position: S RN Member Role: Primary Care Nurse Name: Stephanie Chaidez RN Position: S RN Member Role: Primary Care Nurse Name: Jeremy Torres RN Position: S RN Member Role: Primary Care Nurse Name: Marielos PEREZ, Iftikhar Position: UMESH Renal MD Member Role: Lifetime Consulting Physician Address: [address] [facility] [address] [facility] [address] Telecom: Name: Smith GASTON, Haley Position: Beena RN Member Role: Primary Care Nurse Care Team Related Persons Name: FERNANDEZ LAW Insurance Providers Guarantor name: FERNANDEZ LAW [facility] Information #: 1 Payer: [facility] Member Number: [id number] Policy Number: NA Group Number: NA Health Plan Information #: 2 Payer: [facility] [facility] Member Number: [id number] Policy Number: NA Group Number: NA
--- OUTSIDE RECORDS SUMMARY | 2024-07-20 10:55 | XMS_ITS | Encounter Summary ---
Author Organization [facility] Address [address] [phone] Phone Care Team Providers Care Field Artillery Basic Name Role Phone Unavailable Primary Care Provider Unavailabl e Encounter Details Date Type Department Care Team (Late st Contact Info) Description 06/16/2024 Office Communication [facility] [address] [phone] Iftikhar Arceo MD [address] [phone] Social History Tobacco Use Types Packs/Day Years Used Date Smoking Tobacco: Never Assessed Sex and Gender Information Value Date Recorded Sex Assigned at Not on file Legal Sex Male 10:41 AM EST Gender Identity Not on file Sexual Orientation Not on file documented as of this encounter Plan of Treatment Upcoming Encounters Date Type Department Care Team (Late st Contact Info) Description 07/21/2024 8:30 AM EDT Office Visit [facility] [address] [phone] Gena Robison ARNP [address] [phone] documented as of this encounter Visit Diagnoses Not on filedocumented in this encounter
--- OUTSIDE RECORDS SUMMARY | 2024-07-20 10:55 | XMS_ITS | Clinical Summary ---
Author Organization [facility] ity Address [address] [place] [address] Care Team Providers Care Laundry Machine Tender Name Role Phone Unavailable Primary Care Provider Unavailabl e Surgical History Surgery Date Site/Laterality Comments OTHER SURGICAL HISTORY 02/22/2021 N/A PROCEDURE: NC LAPAROSCOPIC APPENDECTOMY; COMMENT: April Allred Social History Tobacco Use Types Packs/Day Years Used Date Smoking Tobacco: Every Day Alcohol Use Standard Drinks/Week Comments Not Currently 0 (1 standard drink = 0.6 oz pur e alcohol) Sex and Gender Information Value Date Recorded Sex Assigned at Not on file Legal Sex Male 5:38 AM EST Gender Identity Not on file Sexual Orientation Not on file Obstetrics History Plan of Treatment Health Maintenance Due Date Last Done Comments DTaP,Tdap,and Td Vaccines (1 - Tdap) 1980 Pneumococcal Vaccine: 50+ Ye ars (1 of 1 - PCV) 2011 Zoster Vaccines (1 of 2) 2011 COVID-19 [...] patient's age to complete this topic Meningococcal B Vacine Aged Out No lo nger eligible based on patient's age to complete [...]
--- OUTSIDE RECORDS SUMMARY | 2024-07-20 10:55 | XMS_ITS | Encounter Summary ---
Author Organization [facility] Address [address] [phone] Phone Care Team Providers Care Bilingual Recruiter Name Role Phone Unavailable Primary Care Provider Unavailabl e Encounter Details Date Type Department Care Team (Late st Contact Info) Description 06/16/2024 Office Communication [facility] [address] [phone] Iftikhar Arceo MD [address] [phone] Social History Tobacco Use Types Packs/Day Years Used Date Smoking Tobacco: Never Assessed Sex and Gender Information Value Date Recorded Sex Assigned at Not on file Legal Sex Male 10:41 AM EST Gender Identity Not on file Sexual Orientation Not on file documented as of this encounter Miscellaneous Notes * Telephone Encounter - Katelyn Hernandez - 06/21/2024 9:22 AM EST Patient was discharged 06/11 with a note for 1 month follow up. Patient is scheduled for 5 weeks dueto availability not 3 months. * Telephone Encounter - Iftikhar Arceo MD - 06/16/2024 5:06 PM EST I had asked for 1 month fu with shaista - pt has been scheduled for , can you pls look into this documented in this encounter Plan of Treatment Upcoming Encounters Date Type Department Care Team (Late st Contact Info) Description 07/21/2024 8:30 AM EDT Office Visit [facility] [address] [phone] Gena Robison ARNP [address] [phone] documented as of this encounter Visit Diagnoses Not on filedocumented in this encounter
== END 2024-07-20 10:08 | disposition home or self-care (01) ==
LOC: HO.HPS 09:39
PROVIDERS: PCP Internal Medicine; Referring Provider Hospitalist; Visit Provider Hospitalist
DX: C34.91 Malignant neoplasm of unspecified part of right bronchus or lung (principal); Z94.4 Liver transplant status; D64.9 Anemia, unspecified; R06.09 Other forms of dyspnea
CPT/HCPCS: 99214

== ENCOUNTER → 2024-07-20 09:39 | Outpatient (BNVA) | payer OTHER, SELFPAY | PROVIDERS: PCP Internal Medicine; Visit Provider Hospitalist | DX: C34.91 Malignant neoplasm of unspecified part of right bronchus or lung (principal); R06.09 Other forms of dyspnea; D64.9 Anemia, unspecified; Z94.4 Liver transplant status | CPT/HCPCS: 99212 ==

== ENCOUNTER 2024-08-09 02:42 | Emergency (ER) | payer OTHER, SELFPAY ==
[2024-08-09] VITALS (9 sets, daily range): BP systolic 119–143; BP diastolic 64–77; PULSE 62–100; RESP 16–24; TEMP 36.6–36.8; O2SAT 96–99; BMI 23.3
--- NOTE | ~2024-08-09 | US_ITS ---
EXAMINATION: US ABDOMEN LIMITED HISTORY: Limited RUQ ultrasound TECHNIQUE: Real-time grayscale ultrasound imaging of the right upper quadrant was performed and images were reviewed. COMPARISON: Comparison is made with the prior examination dated 06/20/2023. FINDINGS: Liver: The right lobe of the liver measures 15.3 cm in size. The left lobe of the liver measures 9.5 cm in size. The liver demonstrates mildly increased echotexture, consistent with steatosis. No focal mass or intrahepatic biliary ductal dilatation is identified. There is normal hepatopedal flow in the portal vein. Gallbladder and biliary tree: The gallbladder is surgically absent. The common bile duct is normal in caliber measuring 7 mm. Right Kidney: The right kidney measures 10.2 cm in length. The right kidney is unremarkable, without evidence of masses, hydronephrosis, or calculi. Pancreas: The pancreatic head, neck, and body are unremarkable. The pancreatic tail is obscured by bowel gas. Abdominal aorta and inferior vena cava: The visualized portions of the abdominal aorta and inferior vena cava are normal in caliber. There is no free fluid in the right upper quadrant. US/US abdomen limited IMPRESSION: Hepatomegaly and mild hepatic steatosis. Electronically signed by: Abdulaziz Ortega MD 08/09/2024 10:48 AM EDT
--- NOTE | ~2024-08-09 | XR_ITS ---
CLINICAL HISTORY: Shortness of breath, fever, R O pneumonia 1 view chest x-ray. Comparison: None Findings: Minimal streaky opacities are identified over the lower right lung. No focal consolidation identified within the left lung. No pneumothorax or pleural effusion. Heart size normal. Impression: 1. Minimal streaky atelectasis versus infiltrates identified at the lower right lung. This document has been electronically signed by: Sha Szymanski MD on 08/09/2024 04:08:03
--- NOTE | 2024-08-09 03:10 | ED_ITS ---
HPI - Allergic Reaction General Chief complaint: Allergic Reaction Stated complaint: hives Time Seen by Provider: 08/09/24 03:05 Source: patient and family () Mode of arrival: ambulatory Limitations: no limitations History of Present Illness ED Provider: Dr. Vik Medina HPI narrative: 64-year-old male with a history of lung cancer, alcohol use disorder, liver cancer status post ablation, liver transplant followed by [facility], aortic stenosis, hypertension, abdominal hernias, upper GI bleed 01/14/2024 transfused 3 units packed RBCs who presents emergency department for evaluation of hives and pruritic rash which started at 19:00 hours. Patient states he took Benadryl with no relief. He states the itch in his got worse therefore he came to the emergency department for evaluation. He denies lightheadedness, dizziness, nausea, vomiting, abdominal pain, difficulty swallowing, swelling of his tongue or lips. He states that yesterday morning he did have a fever. He denied rhinorrhea, sore throat, cough, shortness of breath, dyspnea on exertion. He was had nausea but no vomiting. He denied diarrhea. Related Data Home Medications ?Medication ?Instructions ?Recorded ?Confirmed magnesium oxide 1,200 mg PO BID@1200,1700 12/09/23 01/13/24 pantoprazole 40 mg tablet,delayed 40 mg PO DAILY@0630 12/09/23 01/13/24 release (Protonix) sodium zirconium cyclosilicate 10 10 g PO Q48H 12/09/23 01/13/24 gram oral powder packet tacrolimus 1 mg capsule, 4 mg PO DAILY 12/09/23 01/13/24 immediate-release (Prograf) urea 15 gram/scoop oral powder 15 g PO Q48H 12/09/23 01/13/24 ursodiol 300 mg capsule 300 mg PO BID 12/09/23 01/13/24 acetaminophen 500 mg tablet 500 mg PO Q4-6H PRN Pain 01/13/24 01/13/24 (Tylenol Extra Strength) magnesium oxide 800 mg PO DAILY 01/13/24 01/13/24 tacrolimus 5 mg capsule, 5 mg PO BEDTIME 01/13/24 01/13/24 immediate-release (Prograf) Previous Rx's ?Medication ?Instructions ?Recorded urea 15 gram oral powder packet 1 packet PO DAILY #8 ea 03/24/24 Allergies Allergy/AdvReac Type Severity Reaction Status Date / Time No Known Allergies Allergy Verified 08/09/24 02:54 Review of Systems 2 Review of Systems: Yes all other systems are reviewed and are negative [facility] Past Medical History [facility] Narrative: Social history: He was in his is here in the emergency department. He denies tobacco, alcohol and drug use Medical History Dyspnea Lung cancer History of alcohol abuse Liver cancer Smoker Cardiac murmur Aortic stenosis Hypertension Chronic hepatitis C Alcoholic cirrhosis Surgical History History of appendectomy H/O colonoscopy History of ablation of neoplasm of liver Social History Social History Household Members: Spouse Housing: Apartment Do you presently have visiting nurse or other home services: No Alcohol intake: former Patient Tobacco Use Status: Former Tobacco user Tobacco use type: Cigarette Cigarettes Per Day: 6 Years Smoked: 20 years Smoked in Last 30 Days: No Use of substances other than those prescribed or required for medical reasons: No Advance Directives: No Advance Directives Information Provided: Yes Do you have a plan to hurt others: No Plan service: Yes Physical Exam ED Vital Signs: Vital Signs - 24 hr 08/09/24 02:54 08/09/24 04:24 08/09/24 07:44 Temperature 97.9 F 98.0 F Pulse Rate 100 78 84 Respiratory Rate 18 22 H 18 Blood Pressure 143/67 H 121/64 119/67 Pulse Oximetry 98 97 98 Oxygen Delivery Method Room Air Room Air Room Air 08/09/24 07:48 08/09/24 07:52 08/09/24 08:07 Temperature 98.0 F 98.0 F 98.1 F Pulse Rate 84 71 68 Respiratory Rate 18 24 H 22 H Blood Pressure 119/67 119/67 127/77 Pulse Oximetry Oxygen Delivery Method BMI result Body Mass Index 23.3 Vital signs were unremarkable except for an elevated blood pressure of 143/67 Exam: General: Awake, alert, patient was agitated and in distress secondary to his pruritus, he was itching his arms in his legs Head: Normocephalic, atraumatic EENT: PERRL, Lids normal, sclera normal, conjunctiva normal, nose normal , ears normal, throat without erythema or exudates Neck: Supple, no adenopathy Lung: breath sounds symmetric, no wheezing, rales or rhonchi Chest: symmetric movement, nontender Heart: regular rate and rhythm, normal S1, S2 2/6 systolic murmur best heard at the right upper sternal border Abdomen: soft, non-tender, nondistended, normal bowel sounds, patient has multiple surgical scars on his abdomen with 2 large hernias which are soft and nontender Rectal: Brown stool, bedside occult test was positive for blood. Back: no vertebral tenderness, no CVAT Extremities: no deformities, moves all extremities symmetrically Skin: Patient was diffuse erythematous rash with no urticaria Neuro: Awake, alert, oriented, normal speech, cranial nerves intact, moves all extremities symmetrically Psych: Pleasant, cooperative Medications Administered Discontinued Medications Generic Name Dose Route Start Last Admin Trade Name Freq PRN Reason Stop Dose Admin Diphenhydramine HCl 50 mg 08/09/24 03:11 08/09/24 03:23 Diphenhydramine Hcl 50 Mg/Ml Vial IVPUSH 08/09/24 03:12 50 mg ONCE STA Administration Famotidine 20 mg 08/09/24 03:11 08/09/24 03:23 Famotidine/Pf 20 Mg/2 Ml Vial IVPUSH 08/09/24 03:12 20 mg ONCE ONE Administration Hydroxyzine HCl 25 mg 08/09/24 04:12 08/09/24 04:24 Hydroxyzine Hcl 25 Mg Tablet PO 08/09/24 04:13 25 mg ONCE ONE Administration Lorazepam 1 mg 08/09/24 06:00 08/09/24 06:21 Lorazepam 2 Mg/Ml Vial IVPUSH 08/09/24 06:01 1 mg STAT STA Administration Methylprednisolone Sodium Succinate 125 mg 08/09/24 03:11 08/09/24 03:23 Methylprednisolone Sod Succ 125 Mg/2 Ml Vial IVPUSH 08/09/24 03:12 125 mg ONCE ONE Administration Medical Decision Making Medical Decision Making MDM Narrative: 64-year-old male with a history of lung cancer, alcohol use disorder, liver cancer status post ablation, liver transplant followed by [facility], aortic stenosis, hypertension, abdominal hernias, upper GI bleed 01/14/2024 transfused 3 units packed RBCs who presents emergency department for evaluation of hives and pruritic rash which started at 19:00 hours and a fever that he states that he had yesterday morning. Patient took Benadryl at home with no relief his symptoms. Vital signs were unremarkable except for slight elevation in his blood pressure. Patient did appear to be agitated in distress secondary to his pruritic rash. Patient does have erythematous urticarial rash. Patient does have a systolic murmur which is consistent with aortic stenosis. He also has large abdominal hernias which are nontender. Rectal exam revealed brown stool which was positive for blood. Differential diagnosis: ?Includes but is not limited to infectious process, allergic reaction, liver transplant rejection, anemia, electrolyte abnormalities Course: 03:20 Patient was treated with Benadryl 50 mg IV, Pepcid 20 mg IV and Solu-Medrol 125 mg IV. Given he was reported fever yesterday I did order an infectious workup and testing for COVID-19, influenza and RSV. 06:00 My interpretation patient's laboratory evaluation is as follows: Normocytic anemia with an H&H of 7.1 and 20.9-patient was had lower H&H is in the past however most recent 1 on 03/24/2024 was 7.9 and 22.6 after receiving 3 units of PRBCs for an H&H of 5.8 and 16.3 on 03/23/2024. PT INR elevated 17.9 and 1.5 compared to PT INR of 13.4 and 1.2 on 03/23/2024. PTT was normal. Bicarb low 19. BUN elevated 33 with an elevated creatinine of 1 point 9 8. Compared to baseline of 28 and 0.90 on 03/23/2024. Glucose elevated 149. Bilirubin elevated 4.1. AST, ALT and alk-phos elevated 132, 235 and 209 again elevated compared to normal values on 03/23/2024. Given his drop in hematocrit and the fact that he was Hemoccult positive, I suspect that he has a chronic, upper GI bleed.Patient will be transfused 1 unit of packed red blood cells here in the emergency department Patient got minimal improvement with the IV Benadryl and he did receive hydroxyzine 25 mg orally with no improvement. Therefore I did give him Ativan 1 mg IV. The patient's was transfused 1 unit of packed red blood cells for his anemia. The patient's Transplant provider , recently decreased the patient's tacrolimus from 4 mg to 3 mg twice a day. Given his elevated liver enzymes and elevated bilirubin, IM concerned that the patient may be rejecting his transplanted liver. Patient's pruritus may be due to the elevated bilirubin. The patient states he gets his transplant care at the [facility] in [place]. I did talk to the information management manager, Rogelio at the [facility] and he is going to pass the information on to the district medical examiner of the day. He did tell me that there are no medical bed available at this time and they are holding patient was in the emergency department but there may be a bed in the afternoon. The director community health nursing did place a call to Dr. Green office who is the patient's liver transplant doctor at the [facility]. 09:30 I did discuss the patient's presentation with the transplant team nurse practitioner, Evon who knows the patient well. She can be reached at . she told me that the patient does have a biliary stent and she believes that he may be experiencing stent failure as opposed to transplant rejection. She requested a right upper quadrant ultrasound to evaluate for possible obstruction of the biliary stent. She will try to facilitate transfer to the [facility]. At the end of my shift, the patient's care was turned over to my colleague, Dr. Peguero. . Admission/Observation Consideration of admission/observation: Escalation of care including admission/observation considered (Yes) Lab Data MDM Lab Attestation statement: I reviewed the patient's lab results. 08/09/24 03:38 08/09/24 03:38 Labs: Lab Results 08/09/24 08/09/24 08/09/24 Range/Units 03:38 03:43 06:04 WBC 9.6 (4.8-10.8) X10*3/uL RBC 2.18 L (4.60-5.80) X10*6/uL Hgb 7.1 L (14.0-18.0) g/dl Hct 20.9 L* (42.0-52.0) % MCV 95.9 (80.0-98.0) fL MCH 32.6 (27.0-33.0) pg MCHC 34.0 (31.0-36.0) g/dl RDW 20.0 H (11.0-16.0) % Plt Count 259 (160-400) X10*3/uL MPV 10.7 (9.4-12.4) fL Immature Gran % (Auto) 2.0 H (0.0-0.4) % Neut % (Auto) 81.0 H (45-73) % Lymph % (Auto) 6.6 L (20-40) % [place] % (Auto) 6.5 (2-11) % Eos % (Auto) 3.8 (0-4) % Baso % (Auto) 0.1 (0-2) % Lymph # (Auto) 0.6 L (1.2-4.9) X10*3/uL [place] # (Auto) 0.6 (0.1-1.2) X10*3/uL Eos # (Auto) 0.4 (0.0-0.4) X10*3/uL Baso # (Auto) 0.0 (0.0-0.2) X10*3/uL Abs Immat Gran (auto) 0.19 H (0.00-0.03) X10*3/uL Absolute Neuts (auto) 7.8 (2.0-8.3) x10*3/uL Absolute Nucleated RBC 0.000 (0.0-0.012) X10*3/uL Nucleated RBC % (auto) 0.0 (0.0-0.2) /100WBC PT 17.9 H D (10.9-12.4) SEC INR 1.5 H (0.9-1.1) APTT 33.6 (26.0-36.8) SEC Sodium 136 (135-145) mmol/L Potassium 4.6 (3.3-5.1) mmol/L Chloride 107 (96-108) mmol/L Carbon Dioxide 19 L (22-29) mmol/L Anion Gap 15 (12-20) BUN 33 H (9-16) mg/dL Creatinine 1.98 H (0.5-1.4) mg/dL Estim Creat Clear Calc 38.1 Estimated GFR 34 Random Glucose 149 H (60-115) mg/dL Lactic Acid 1.8 (0.5-2.0) mmol/L Calcium 9.4 D (8.4-10.2) mg/dL Magnesium 1.6 (1.6-2.6) mg/dL Total Bilirubin 4.1 H (0.0-1.0) mg/dL Direct Bilirubin 3.2 H (0.0-0.5) mg/dL AST 132 H (5-37) U/L ALT 235 H (0-40) U/L Alkaline Phosphatase 209 H (39-117) U/L Total Protein 7.5 (6.5-8.0) g/dL Albumin 3.9 (3.5-5.0) g/dL Lipase 10 (8-78) U/L Urine Color Urine Appearance Urine pH (5.0-9.0) Ur Specific Quinter (1.005-1.025) Urine Protein (Neg-Trace) mg/dL Urine Glucose (UA) (Negative) mg/dL Urine Ketones (Negative) mg/dL Urine Blood (Negative) Urine Nitrite (Negative) Ur Leukocyte Esterase (Negative) Urine RBC (0-2) /HPF Urine WBC (0-5) /HPF Ur Squamous Epith Cells (0-2) /HPF Urine Bacteria (None Seen) Hyaline Casts (0-2) /LPF Influenza Type A (PCR) NEGATIVE (Negative) Influenza Type B (PCR) NEGATIVE (Negative) RSV RNA Qual (PCR) NEGATIVE (Negative) SARS-CoV-2 RNA (RT-PCR) NEGATIVE (Negative) Blood Type O Positive Antibody Screen NEGATIVE Crossmatch See Detail 08/09/24 Range/Units 06:20 WBC (4.8-10.8) X10*3/uL RBC (4.60-5.80) X10*6/uL Hgb (14.0-18.0) g/dl Hct (42.0-52.0) % MCV (80.0-98.0) fL MCH (27.0-33.0) pg MCHC (31.0-36.0) g/dl RDW (11.0-16.0) % Plt Count (160-400) X10*3/uL MPV (9.4-12.4) fL Immature Gran % (Auto) (0.0-0.4) % Neut % (Auto) (45-73) % Lymph % (Auto) (20-40) % Beaufort % (Auto) (2-11) % Eos % (Auto) (0-4) % Baso % (Auto) (0-2) % Lymph # (Auto) (1.2-4.9) X10*3/uL [place] # (Auto) (0.1-1.2) X10*3/uL Eos # (Auto) (0.0-0.4) X10*3/uL Baso # (Auto) (0.0-0.2) X10*3/uL Abs Immat Gran (auto) (0.00-0.03) X10*3/uL Absolute Neuts (auto) (2.0-8.3) x10*3/uL Absolute Nucleated RBC (0.0-0.012) X10*3/uL Nucleated RBC % (auto) (0.0-0.2) /100WBC PT (10.9-12.4) SEC INR (0.9-1.1) APTT (26.0-36.8) SEC Sodium (135-145) mmol/L Potassium (3.3-5.1) mmol/L Chloride (96-108) mmol/L Carbon Dioxide (22-29) mmol/L Anion Gap (12-20) BUN (9-16) mg/dL Creatinine (0.5-1.4) mg/dL Estim Creat Clear Calc Estimated GFR Random Glucose (60-115) mg/dL Lactic Acid (0.5-2.0) mmol/L Calcium (8.4-10.2) mg/dL Magnesium (1.6-2.6) mg/dL Total Bilirubin (0.0-1.0) mg/dL Direct Bilirubin (0.0-0.5) mg/dL AST (5-37) U/L ALT (0-40) U/L Alkaline Phosphatase (39-117) U/L Total Protein (6.5-8.0) g/dL Albumin (3.5-5.0) g/dL Lipase (8-78) U/L Urine Color Dark Yellow Urine Appearance Clear Urine pH 6.0 (5.0-9.0) Ur Specific Quinter 1.010 (1.005-1.025) Urine Protein 30 (1+) H (Neg-Trace) mg/dL Urine Glucose (UA) Negative (Negative) mg/dL Urine Ketones Negative (Negative) mg/dL Urine Blood Negative (Negative) Urine Nitrite Negative (Negative) Ur Leukocyte Esterase Negative (Negative) Urine RBC 0-2 (0-2) /HPF Urine WBC 0-5 (0-5) /HPF Ur Squamous Epith Cells 11-20 (0-2) /HPF Urine Bacteria None Seen (None Seen) Hyaline Casts 0-2 (0-2) /LPF Influenza Type A (PCR) (Negative) Influenza Type B (PCR) (Negative) RSV RNA Qual (PCR) (Negative) SARS-CoV-2 RNA (RT-PCR) (Negative) Blood Type Antibody Screen Crossmatch Independent Interpretation Interpretation: My interpretation patient's chest x-ray is as follows: No acute disease, did review the radiology reading Radiology Impression Discussion of test interpretation with radiology: I have reviewed the radiologist's reading. Radiologist Impression: 1 view chest x-ray. Comparison: None Findings: Minimal streaky opacities are identified over the lower right lung. No focal consolidation identified within the left lung. No pneumothorax or pleural effusion. Heart size normal. Impression: 1. Minimal streaky atelectasis versus infiltrates identified at the lower right lung. This document has been electronically signed by: Sha Szymanski MD on 08/09/2024 04:08:03 Independent Historian Clinical information obtained from an independent historian. History obtained from or confirmed by: Spouse External Record Review External record reviewed: Inpatient record Critical Care Time Critical Care Time Critical Care Time: Yes Total Critical Care Time: 45 Attestation: Critical Care: The patient was critically ill with a high probability of imminent or life threatening deterioration. I spent greater than 30 minutes of discontinuous time evaluating the patient,delivering critical care at the bedside, discussing and evaluating pertinent data with consultants. Critical care time does not include time spent performing separately billable procedures or teaching. Total time spent performing critical care was 45 minutes. Discharge Plan Discharge Clinical Impression: Pruritic rash, Liver transplanted, Elevated liver enzymes, Elevated bilirubin Patient Disposition: Still a Patient Prescriptions: No Action pantoprazole [Protonix] 40 mg Tablet,Delayed Release (Dr/Ec) 40 mg PO DAILY@0630 ursodiol 300 mg Capsule 300 mg PO BID tacrolimus [Prograf] 1 mg Capsule 4 mg PO DAILY magnesium oxide 400 mg magnesium Tablet 1,200 mg PO BID@1200,1700 urea 15 gram/scoop Powder 15 g PO Q48H Rx Instructions: Alternating days with Sodium Zirconium Cyclosilicate sodium zirconium cyclosilicate 10 gram Powder In Packet 10 g PO Q48H Rx Instructions: Alternating days with Urea 15g tacrolimus [Prograf] 5 mg Capsule 5 mg PO BEDTIME magnesium oxide 400 mg magnesium Tablet 800 mg PO DAILY acetaminophen [Tylenol Extra Strength] 500 mg Tablet 500 mg PO Q4-6H PRN (Reason: Pain) urea 15 gram powder in packet 1 packet PO DAILY Qty: 8 0RF Print Language: Icelandic
[2024-08-09] MEDS: methylPREDNISolone Sod Succ 125 MG/2 ML VIAL IVPUSH (03:23)
[2024-08-09] MEDS: diphenhydrAMINE HCL 50 MG/ML VIAL IVPUSH (03:23)
[2024-08-09] MEDS: Famotidine/PF 20 MG/2 ML VIAL IVPUSH (03:23)
[2024-08-09 03:44] LABS: Basophils Percent Auto 0.1 % (0-2); Eosinophils Absolute Auto 0.4 X10*3/uL (0.0-0.4); Eosinophils Percent Auto 3.8 % (0-4); Hemoglobin 7.1 g/dl (14.0-18.0); Imm Gran Abs Auto 0.19 X10*3/uL (0.00-0.03); Lymphocytes Absolute Auto 0.6 X10*3/uL (1.2-4.9); Lymphocytes Percent Auto 6.6 % (20-40); MANUAL DIFF FLAG NO; Mean Corpuscular Hemoglobin 32.6 pg (27.0-33.0); Mean Corpuscular Volume 95.9 fL (80.0-98.0); Mean Platelet Volume 10.7 fL (9.4-12.4); Monocytes Absolute Auto 0.6 X10*3/uL (0.1-1.2); Monocytes Percent Auto 6.5 % (2-11); Neutrophils Absolute Auto 7.8 x10*3/uL (2.0-8.3); Platelet Count 259 X10*3/uL (160-400); Red Blood Count 2.18 X10*6/uL (4.60-5.80); White Blood Count 9.6 X10*3/uL (4.8-10.8)
[2024-08-09 03:49] LABS: Hematocrit 20.9 % (42.0-52.0)
[2024-08-09 03:53] LABS: INTERNATIONAL NORM RATIO 1.5 (0.9-1.1); Prothrombin Time 17.9 SEC (10.9-12.4)
[2024-08-09 03:55] LABS: Partial Thromboplastin Time 33.6 SEC (26.0-36.8)
[2024-08-09 04:03] LABS: Lactic Acid 1.8 mmol/L (0.5-2.0)
[2024-08-09 04:09] LABS: Alanine Aminotransferase 235 U/L (0-40); Albumin Level 3.9 g/dL (3.5-5.0); Alkaline Phosphatase 209 U/L (39-117); Anion Gap 15 (12-20); Aspartate Amino Transferase 132 U/L (5-37); Bilirubin Total 4.1 mg/dL (0.0-1.0); Blood Urea Nitrogen 33 mg/dL (9-16); Calcium 9.4 mg/dL (8.4-10.2); Carbon Dioxide 19 mmol/L (22-29); Chloride 107 mmol/L (96-108); Creatinine Clr Calc Pharmacy 38.1; Estimated Glomerular Filt Rate 34; Glucose Random 149 mg/dL (60-115); Lipase 10 U/L (8-78); Magnesium 1.6 mg/dL (1.6-2.6); Potassium 4.6 mmol/L (3.3-5.1); Sodium 136 mmol/L (135-145); Total Protein 7.5 g/dL (6.5-8.0)
[2024-08-09] MEDS: hydrOXYzine HCL 25 MG TABLET PO (04:24)
[2024-08-09 04:27] LABS: Influenza A PCR NEGATIVE (Negative); Influenza B PCR NEGATIVE (Negative); Resp Syncy Virus RNA Qual PCR NEGATIVE (Negative); SARS COV2 PCR INHOUSE NEGATIVE (Negative)
[2024-08-09] MEDS: LORazepam 2 MG/ML VIAL 1 MG IVPUSH ×3 (06:21→17:56)
[2024-08-09 06:27] LABS: Appearance Urine Clear; Color Urine Dark Yellow; Glucose Urine UA Negative (Negative); Leukocyte Esterase Urine Negative (Negative); Nitrite Urine Negative (Negative); UMIC TRIGGER UACC YES; Urine Blood Negative (Negative); Urine Ketones Negative (Negative); Urine Protein 30 (1+) mg/dL (Neg-Trace)
[2024-08-09 07:25] LABS: Bacteria Urine None Seen (None Seen); Hyaline Casts Urine 0-2 /LPF (0-2); RBC Urine 0-2 /HPF (0-2); WBC Urine 0-5 /HPF (0-5)
--- NOTE | 2024-08-09 08:02 | PC.NURSE ---
this nurse took over patient care at 7am, patient&ox3, family at bedside, pt c/o ongoing full body itchiness, cardiac technician intact-nsr on monitor, vss, blood consent signed, blood transfusion started. rr equal non labored, lungs dimished throughout, call banks within reach, plan of care ongoing
--- NOTE | 2024-08-09 08:08 | PC.NURSE ---
repeat vitals performed for blood transfusion, pt tolerating well, pt has ongoing itchiness NOT related to blood transfusion.
[2024-08-09 09:23] LABS: Bilirubin Direct 3.2 mg/dL (0.0-0.5)
--- NOTE | 2024-08-09 09:57 | PC.NURSE ---
pharmacy tiger texted for missing medications
[2024-08-09] MEDS: Tacrolimus 1 MG CAPSULE 3 MG PO (10:25)
--- NOTE | 2024-08-09 10:29 | PC.NURSE ---
pt sleeping-bedside us being performed, pt woke to verbal stimulus, medicated per order, grants analyst nsr, blood continues to run, call banks within reach, plan of care ongoing
--- NOTE | 2024-08-09 11:30 | PC.NURSE ---
patient a&ox3, pt was ambulatory with steady gait to bathroom, at bedside, monitoring specialist intact, pt currently denying pain, vss, pt awaiting disposition to another facility, [facility]
--- NOTE | 2024-08-09 14:50 | PC.NURSE ---
[facility]: This nurse gave report to from this service. He is aware the patients will be flying with them- he requested her information which is as follows if it is needed again: Linda Jones [birth year], heigh 5,6, weight 172lbs she is aware that she is allowed only 1 small bag of belongings for herself. The air ambulance is awaiting further direction from the [facility] to fly the patient to [place] in [facility]. They will call us back with an update as to when they will fly here to get him. Family is aware of this as previously stated they are in constant contact with the staff at the [facility] that is arranging this flight for them. Additionally patients liver transplant was 07/2023 per .
--- NOTE | 2024-08-09 16:42 | MHC.EDTECH ---
[facility]light [facility] [facility]
--- NOTE | 2024-08-09 18:00 | PC.NURSE ---
this nurse spoke with lindaflight nurse practitioner via phone call giving him report. this nurse asked this RICE DRIER if they had an accepting provider and where they were going at [place] which he stated he didnt have that information as of yet. This hospital also did not have the information which was expressed to the flight nurse practitioner.
--- NOTE | 2024-08-09 19:38 | PC.NURSE ---
Ambulance crew came to the ED to strip picker patient to transport him to the waiting flight at the airport. This ambulance crew/flight was set up by the [facility] and not our facility. This nurse asked the ambulance crew if they were given the accepting provider and where I could call report to- they were unaware of either. They made a call to their dispatch who gave them this number to [facility] [phone] part of the flight crew- tail [id number] to see if we could obtain information. Upon getting this number, Daina CORTEZ spoke with the transfer line at [place] who told her that they did not have a bed for the patient and they were at capacity in the ED so they cant do an ED to ED. The flight crew then called and was irate as they were waiting at the airport for the patient. This nurse gave the call to Daina who attempted to explain the situation and how this hospital did NOT set up this transfer that the [facility] did. Earlier today as in notes- of [facility] called and obtained information needed- he was also informed we had no accepting provider or bed at that time. Michelle- the flight GLASS WORKER called a few hours later and this was told to him as well. This nurse was told the patient is not transferring tonight and they hope to have a bed tomm for him.
--- NOTE | 2024-08-09 21:23 | PC.NURSE ---
Patient is alert and oriented x4, he denies any pain at present. VSS. Patient transferred to a hospital bed for comfort, patient's spouse at bedside, call banks in patient's reach.
[2024-08-10 01:38] VITALS: BP 125/70; PULSE 70; RESP 20; TEMP 36.8; O2SAT 96
--- NOTE | 2024-08-10 01:49 | PC.NURSE ---
VSS, patient offers no complaints at present. Patient resting comfortably in a hospital bed, call banks in patient's reach.
--- NOTE | 2024-08-10 01:53 | PC.NURSE ---
Administration of Ursodiol 300 mg PO delayed, medication is not available in ED pyxis, awaiting for mediation to be brought to ED by Ashlee, clinical newspaper carriers supervisor.
--- NOTE | 2024-08-10 02:04 | PC.NURSE ---
Patient requested sun butter sandwich with robyn wilton, provided and tolerated well.
[2024-08-10] MEDS: UrsodioL 300 MG CAPSULE PO ×3 (02:07→20:52)
--- NOTE | 2024-08-10 02:11 | PC.NURSE ---
Patient medicated with Ursodiol 300 mg PO, Prograf 3 mg PO not available at this time, Dr. Chapa made aware.
--- NOTE | 2024-08-10 02:22 | PC.NURSE ---
Patient observed ambulating to the restroom and back to his room independently with a steady gait.
[2024-08-10 04:00] VITALS: BP 124/76; PULSE 82; RESP 20; TEMP 36.7; O2SAT 97
--- NOTE | 2024-08-10 04:06 | MHC.EDTECH ---
This tech took over care of pt at 0315am,rounded and introduced self to pt, vitals taken,pillow given,pt appears comfortable,family at bedside, call banks within reach
[2024-08-10 06:56] LABS: MANUAL DIFF FLAG NO
[2024-08-10 06:58] LABS: Eosinophils Absolute Auto 0.2 X10*3/uL (0.0-0.4); Eosinophils Percent Auto 2.8 % (0-4); Hemoglobin 7.1 g/dl (14.0-18.0); Imm Gran Pct Auto 1.9 % (0.0-0.4); Lymphocytes Absolute Auto 0.5 X10*3/uL (1.2-4.9); Lymphocytes Percent Auto 10.2 % (20-40); Mean Corpuscular Hemoglobin 32.9 pg (27.0-33.0); Mean Corpuscular Volume 96.8 fL (80.0-98.0); Mean Platelet Volume 10.8 fL (9.4-12.4); Monocytes Absolute Auto 0.6 X10*3/uL (0.1-1.2); Monocytes Percent Auto 10.6 % (2-11); Neutrophils Absolute Auto 3.9 x10*3/uL (2.0-8.3); Neutrophils Percent Auto 74.5 % (45-73); Platelet Count 242 X10*3/uL (160-400); Red Blood Count 2.16 X10*6/uL (4.60-5.80); Red Cell Distribution Width 19.8 % (11.0-16.0); White Blood Count 5.3 X10*3/uL (4.8-10.8)
[2024-08-10 07:00] LABS: Hematocrit 20.9 % (42.0-52.0)
[2024-08-10 07:03] LABS: INTERNATIONAL NORM RATIO 1.3 (0.9-1.1); Prothrombin Time 15.2 SEC (10.9-12.4)
[2024-08-10 07:18] LABS: Alanine Aminotransferase 161 U/L (0-40); Albumin Level 3.4 g/dL (3.5-5.0); Alkaline Phosphatase 159 U/L (39-117); Anion Gap 10 (12-20); Aspartate Amino Transferase 52 U/L (5-37); Bilirubin Direct 0.6 mg/dL (0.0-0.5); Bilirubin Total 1.1 mg/dL (0.0-1.0); Blood Urea Nitrogen 56 mg/dL (9-16); Carbon Dioxide 19 mmol/L (22-29); Chloride 112 mmol/L (96-108); Creatinine Clr Calc Pharmacy 35.3; Estimated Glomerular Filt Rate 31; Glucose Random 164 mg/dL (60-115); Potassium 4.7 mmol/L (3.3-5.1); Sodium 136 mmol/L (135-145); Total Protein 6.7 g/dL (6.5-8.0)
[2024-08-10] MEDS: Pantoprazole Sodium 20 MG TABLET.DR 40 MG PO (07:30)
[2024-08-10] MEDS: Urea 15 GM POWDER PO (08:08)
[2024-08-10] MEDS: Tacrolimus 1 MG CAPSULE 3 MG PO ×2 (08:09→20:53)
--- NOTE | 2024-08-10 08:15 | PC.NURSE ---
Pharmacy called to reschedule Lokelma so it is alternating days with Urea per dosing info.
[2024-08-10 09:39] VITALS: BP 138/71; PULSE 80; RESP 20; O2SAT 97
--- NOTE | 2024-08-10 10:33 | PHA.MEDREC ---
Addendum entered by Marry Rich RPh 08/10/24 11:51: Reviewed by [facility] Original Note: Pharmacy Consult ? Medication Reconciliation Pharmacy has reviewed the medication reconciliation done by nursing. Utilized list from the [place] to confirm med list. Spoke to patient to confirm last dose of Aranesp. Patient states His last dose was 08/05/24. Patient confirm he takes Pantoprazole 40 mg Daily even though claims has BID, Tacrolimus 3 mg qam and 3 mg qpm, Claims has 4 mg Bid and Magnesium oxide 400 mg BId not Tid.
[2024-08-10] MEDS: Magnesium Oxide 400 MG TABLET 1200 MG PO (11:38)
[2024-08-10 13:11] VITALS: BP 135/74; PULSE 78; RESP 20; O2SAT 97
--- NOTE | 2024-08-10 16:35 | PC.NURSE ---
Medication unavailable in ED pyxis. Awaiting Ursodiol 300mg, will administer upon receipt. Requested and given robyn núñez & rajeev weiss. Family member remains at bedside.
--- NOTE | 2024-08-10 16:44 | PC.NURSE ---
Patient refusing to take Ursodiol 300mg and Mag-Oxide 400mg until 21:00 today. States that he usually takes it at night and doesn't want to take them right now. Provider & pharmacy aware of administration time change request. Denies pain at this time. Continue to await update regarding transfer to [facility]. 20g IV access in left AC flushed without issue, J-loop clamped.
--- NOTE | 2024-08-10 18:54 | PC.NURSE ---
Spoke with Ashlie from [facility]. [place] has a bed available on unit S52, Bed #3723. Unit Transfer Center 02/12 Arranging air transfer from [facility] [place] [facility]. litigation secretary (Eunice[facility] Provider (Dr. Gaston) also aware. Patient updated with plan.
--- NOTE | 2024-08-10 20:38 | PC.NURSE ---
Spoke with pharmacy requesting Prograf 3mg. Plan to medicate the patient upon receipt. Plan updated for patient regarding transfer to [place]. Eunice ([place] secretary board of commissioners) spoke with [facility], this RN, & Dr. Gaston. Plan for transport tomorrow (08/11/2024), awaiting return call to confirm exact flight time. Patient & family updated regarding plan. Pt continues to deny pain at this time, no acute distress. Care ongoing by this RN.
[2024-08-10] MEDS: Magnesium Oxide 400 MG TABLET PO (20:52)
[2024-08-11 00:46] VITALS: BP 126/71; PULSE 78; RESP 18; TEMP 37.3; O2SAT 98
[2024-08-11] MEDS: Pantoprazole Sodium 20 MG TABLET.DR 40 MG PO (07:16)
[2024-08-11 07:59] VITALS: BP 128/76; PULSE 78; RESP 25; TEMP 37.4; O2SAT 100
[2024-08-11] MEDS: UrsodioL 300 MG CAPSULE PO (08:14)
[2024-08-11] MEDS: Tacrolimus 1 MG CAPSULE 3 MG PO (08:15)
[2024-08-11] MEDS: Sodium Zirconium Cyclosilicate 10 GM POWD.PACK PO (08:15)
--- NOTE | 2024-08-11 08:54 | PC.NURSE ---
This RN spoke to NH, NH is calling [place] this morning to confirm bed is still available and what time all transfers will be happening.
--- NOTE | 2024-08-11 09:40 | PC.NURSE ---
Pt alert and oriented this morning, ate his breakfast and took all meds whole. No signs of acute distress, no new complaints. Plan for transport to [place] today, still awaiting info on time.
--- NOTE | 2024-08-11 10:16 | PC.NURSE ---
This RN gave report to Janina GASTON at [facility] on Step down unit who reports she will be his nurse later today. Full report given. Asks if there are any changes or updates we call their unit (number in previous note) and I gave them our number to call us.
--- NOTE | 2024-08-11 10:27 | PC.NURSE ---
This RN spoke to [facility], . Number [phone]. Gave him report about pt on his request as he said he would be taking the patient. Unsure about flight info or time at this time.
--- NOTE | 2024-08-11 11:05 | PC.NURSE ---
Report received from MARILIN Juares. Taken over care at this time.
--- NOTE | 2024-08-11 11:22 | PC.NURSE ---
Spoke to Violet, whom is a territory supervisor of pt. services at the [place], and provided Kang this information via [employer]. Pt. being picked up at 1400 today.
[2024-08-11] MEDS: Magnesium Oxide 400 MG TABLET PO (11:27)
[2024-08-11 12:00] VITALS: BP 122/71; PULSE 78; RESP 18; TEMP 37.2; O2SAT 98
--- NOTE | 2024-08-11 13:49 | PC.NURSE ---
[facility] arrived to pickle sorter pt. Report given and all paperwork was given to EMS personnel Brenton. Pt. leaving via stretcher with EMS personnel. Pt. has all belongings. vss.
[2024-08-11 13:50] VITALS: BP 122/71; PULSE 78; RESP 18; TEMP 37.2; O2SAT 98
== END 2024-08-11 13:58 | disposition short-term general hospital (02) ==
PROVIDERS: Emergency Medicine Emergency Medical Services; Emergency Provider Emergency Medicine; PCP Internal Medicine
DX: L50.9 Urticaria, unspecified (principal); L29.9 Pruritus, unspecified; R74.8 Abnormal levels of other serum enzymes; R17 Unspecified jaundice; D64.9 Anemia, unspecified; Z94.4 Liver transplant status; Z03.818 Encounter for observation for suspected exposure to other biological agents ruled out; Z79.899 Other long term (current) drug therapy
CPT/HCPCS: 0241U; 36415; 36430; 71045; 76705; 80048; 80053; 80076; 81001; 81003; 82248; 83605; 83690; 83735; 85025; 85610; 85730; 86850; 86900; 86901; 86923; 87040; 96374; 96375; 96376; 99285; J1200; J2060; J2919; P9016

== ENCOUNTER → 2024-08-09 03:12 | Outpatient (BNV) | payer OTHER, SELFPAY | PROVIDERS: Emergency Provider Emergency Medicine Emergency Medical Services; PCP Internal Medicine; Visit Provider Radiology Diagnostic Radiology | DX: R16.0 Hepatomegaly, not elsewhere classified (principal); K76.0 Fatty (change of) liver, not elsewhere classified; R91.8 Other nonspecific abnormal finding of lung field | CPT/HCPCS: 71045; 76705 ==

== ENCOUNTER 2025-02-18 09:20 | Outpatient (AMB) | payer OTHER, SELFPAY ==
--- OUTSIDE RECORDS SUMMARY | 2016-03-07 07:30 | XMS_ITS | Continuity of Care Document ---
Author Organization [facility] Address [address] [place] [address] Phone Care Team Providers Care Cardiac Cath Technologist Name Role Phone Unavailable Unavailable Unavailable Allergies, Adverse Reactions, Alerts Substance Reaction Status Criticality No Known Allergies Active No Inform ation Medications Medication Instructions Dosage Effective Dates (start - stop) Status Comments atenolol 25 mg tablet TAKE ONE TABLET BY MOUTH ONCE DAILY - Active ATENOLOL 25MG TAB TAKE ONE TABLET BY MOUTH ONCE DAILY - No Longer Active pravastatin 40 mg tablet take 1 tablet by oral route every bedtime 40 MG - No Longer Active Naprosyn 500 mg tablet take 1 tablet by oral route 2 times every day with food 500 MG - No Longer Active cyclobenzaprine 5 mg tablet take 1 tablet by oral route at night, then may take 1 tab as needed during the day - No Longer Active Procedures Procedure Date OFFICE/OUTPATIENT VISIT, EST OFFICE/OUTPATIENT VISIT, EST COPAY OFFICE/OUTPATIENT VISIT, EST OFFICE/OUTPATIENT VISIT, EST OFFICE/OUTPATIENT VISIT, EST INJ TENDON ORIGIN/INSERTION OFFICE/OUTPATIENT VISIT, EST OFFICE/OUTPATIENT VISIT, EST OFFICE/OUTPATIENT VISIT, NEW COPAY Advance Directives Directive Yes / No Effective Date File Name No Information Encounters Encounter Description Practice Location Reason(s) For Visit Diagnoses Date Provider Providers Copied on Encounter OFFICE/OUTPA TIENT VISIT, [facility], [address], [place], [place], [id number], [place] tel:[phone] [facility] Follow Up of hypertension (chief complaint)Hype rlipidemia (chief complaint) Essential hypertensionH ypertriglycer idemia 6 No Information [facility], [address], [place], [place], [id number], [place] tel:[phone] [facility] No Information 6 No Information [facility], [address], [id number], [place] tel:[phone] [facility] No Information 6 No Information OFFICE/OUTPA TIENT VISIT, [facility], [address], [place], [id number], [place] tel:[phone] [facility] musculoskeleta l pain (chief complaint) Right groin pain 5 No Information [facility], [address], [place], [place], [id number], [place] tel:[phone] [facility] No Information 5 [facility]. [address] [place], [address]. tel:[phone] OFFICE/OUTPA TIENT VISIT, [facility], [address], [place], [place], [id number], [place] tel:[phone] [facility] Groin pain (chief complaint)musc uloskeletal pain (chief complaint) No Information 5 No Information OFFICE/OUTPA TIENT VISIT, [facility], [address], [place], [place], [id number], [place] tel:[phone] [facility] musculoskeleta l pain (chief complaint) No Information 4 No Information OFFICE/OUTPA TIENT VISIT, [facility], [address], [id number], [place] tel:[phone] [facility] musculoskeleta [facility] pain (chief complaint) No Information 4 No Information OFFICE/OUTPA TIENT VISIT, [facility], [address], [place], [id number], [place] tel:[phone] [facility] Dante Arm pain (chief complaint) No Information 4 No Information OFFICE/OUTPA TIENT VISIT, [facility], [address], [id number], [place] tel:[phone] [facility] musculoskeleta l pain (chief complaint) No Information 4 No Information OFFICE/OUTPA TIENT VISIT, [facility], [address], [id number], [place] tel:[phone] [facility] musculoskeleta l pain (chief complaint) No Information No Information [facility], [address], [id number], [place] tel:[phone] [facility] No Information 4 [facility]. [address] [facility] [place], [address]. tel:[phone] Family History Family Member Type Diagnosis Age At Onset Mother Problem (finding) Alive and well Mother Problem (finding) hypertension Payers Payer name Insurance type Covered green party ID Ida garcia(s) [facility] [place] [id number] Social History Type Description Quantity Date Captured Comments Alcohol Use Details No Caffeine Use Details No Tobacco Use Status Never smoked tobacco 2015 Smoking Status Never smoker Non-Smoking Tobacco Use Details : No Details Available : No Details Available Sex Male Vital Signs Date / Time: Height Weight BMI Pulse Rate Blood Pressure Temperature Respiratory Rate Body Surface Area Head Circumference Head Circ. Percentile Wt./[place]. Percentile BMI percentile Pulse Ox Inhaled Ox 11:07 AM 66.25 in 79.832 kg (176.00 lbs) 28.1 9 kg/m eter (2) 78 /min 118/86 mm[Hg] 97.20 F 13 /min 94 % Chief Complaint And Reason For Visit From encounter dated '03/07/2016 11:30'. Follow Up of hypertension (chief complaint). Description: The symptoms began gradually. It is currently stable. Risk factors include family history HTN, gout or CAD, inactive lifestyle and male gender. The hypertension is exacerbated by nothing. Pertinent negatives include chest pain, claudication,fatigue, headache, irregular heartbeat/palpitations, nausea and tinnitus. Hyperlipidemia (chief complaint). Description: The hyperlipidemia is a new diagnosis. Risk factors include age over 50, poor diet and sedentary life style. Hyperlipidemia management includes improveddiet. Pertinent negatives include chest pain, claudication, diaphoresis, diarrhea, increased fatigue, joint pain, nausea and palpitations. Reason For Referral Reason For Referral No Information Plan Of Treatment Date Type Action Status Goal Lifestyle education regardin g diet completed Goal Lifestyle education regardin g diet completed Goal Lifestyle education regardin g diet completed History Of Present Illness Encounter Date Complaint History Of Prese nt Illness Follow Up of hypertension The sy mptoms began gradually. It is currently stable. Risk factors include family history HTN, gout or CAD, inactive lifestyle and male gender. The hypertension is exacerbated by nothing. Pertinent negatives include chest pain, claudication, fatigue, headache, irregular heartbeat/palpitations, nausea and tinnitus. Hyperlipidemia The hyperlipidem ia is a new diagnosis. Risk factors include age over 50, poor diet and sedentary life style. Hyperlipidemia management includes improved diet. Pertinent negatives include chest pain, claudication, diaphoresis, diarrhea, increased fatigue, joint pain, nausea and palpitations. musculoskeletal pain It occurs i ntermittently and is fluctuating. The pain is aching and dull. The pain is relieved by heat, ice and rest. Pertinent negatives include bruising, crepitus, decreased mobility, difficulty initiating sleep, joint instability, joint tenderness, limping, locking, nocturnal awakening, nocturnal pain, numbness, popping, spasms, swelling, tingling in the arms, tingling in the legs and weakness. Additional information: mild groin pain. Groin pain musculoskeletal pain Onset: 2 mo nths ago. Duration: 2 Months. Severity level is 6. It occurs intermittently and is fluctuating. Location: thigh. The pain radiates to the right groin. The pain is aching. Context: there is no injury. The pain is aggravated by bending, climbing stairs, lifting and movement. There are no relieving factors. Pertinent negatives include bruising, crepitus, decreased mobility, difficulty initiating sleep, joint instability, limping, locking, nocturnal awakening, spasms, swelling, tingling in the legs and weakness. Hand Dominance: right. musculoskeletal pain Additional information: Pt is here for f/u on elbow pain, right. Pt is requesting an injection to the elbow today. First shot helped for one month now back. musculoskeletal pain Onset: 3 mo nths ago. Severity level is 7. It occurs constantly and is worsening. Location: right elbow. There is no radiation. The pain is aching. Context: overuse. Associated symptoms include decreased mobility, joint tenderness, nocturnal awakening and nocturnal pain. Pertinent negatives include bruising, crepitus, difficulty initiating sleep, joint instability, limping, locking, numbness, popping, spasms, swelling, tingling in the arms, tingling in the legs and weakness. Hand Dominance: right. Arm pain Onset: 3 months ago. It occurs constantly and is fluctuating. Location: right elbow. The pain radiates to the right arm. The pain is sharp. Context: there is no injury. The pain is aggravated by movement. There are no relieving factors. Associated symptoms include joint tenderness and tingling in the arms. 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 musculoskeletal pain Onset: 2 mo nths ago. Duration: 2 Months. Severity level is 9. It occurs constantly and is fluctuating. Location: right elbow. The pain is sharp. Context: there is no injury. The pain is aggravated by movement. There are no relieving factors. Associated symptoms include decreased mobility and joint tenderness. Pertinent negatives include bruising, crepitus, spasms and tingling in the arms. Additional information: Pt states here for f/u for R elbow pain. Pt states is not better. musculoskeletal pain Onset: 2 we eks ago. Duration: 2 Weeks. Severity level is 10. It occurs constantly and is worsening. Location: right wrist. The pain radiates to the right arm. The pain is sharp. Context: there is no injury. The pain is aggravated by movement. There are no relieving factors. Associated symptoms include decreased mobility and joint instability. Pertinent negatives include numbness, tingling in the arms and tingling in the legs. Additional information: X-ray at [place], normal. Diffuculty grabbing, moving hand. Functional Status Date Functional Assessmen t No Information Instructions Date Instruction Additional Infor mation Dietary restrictions reviewed, low carbRecheck in 4 moF/U in 2-3 mo*monitor BP, may need to lower dose Related to Hypertriglyceridemia Continue current med icationF/U in 2-3 mo Related to Essential hypertension Giving encouragement to exercise Lifestyle education regarding di et Use warm to cold com presses for relief and abstain from strenuous activities. Naprosyn was prescribed. Patient was asking for a stronger pain medication consistent with behavior from previous appointment. Follow up as needed. Related to Right groin pain I recommended to the patient to adhere to pelvic rest and to abstain from strenuous activities at this time and offered to give him anti-inflammatory medications to help with pain. The patient refused to have any anti-inflammtory medications and stated that they would not work. The patient has no history of any use of any other medication other than Tramadol. He has used Percocet in the past. I explained to the patient that I could give him Naprosyn or Mobic but the patient refused these meds stating that they would not work. I asked the patient to state exactly which medication he has used in the past but he could not recall stating I have used all of them and they have not worked. I provided the patient with an excuse note for work relieving him of heavy duties for a week. He reacted in a rude manner when accepting this note.The patient left in a rude manner and stated to the staff that I had been drinking alcohol. His behaviour was suspicious of drug seeking behaviour as I have stated above. 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 Denies hx of substance abuse. Given percocet 5-325 #45, take 1/2 tablet as needed for pain. Given wrap for lateral epicondyleDiscussed possible steroid injections in the future. Follow-up in 1 month Related to Lateral epicondylitis Giving encouragement to exercise Lifestyle education regarding di et Admits to no change in symptoms with ibuprofen and the exercises. Denies numbness/tingling in R hand or arm. There is tenderness over bony lateral R elbow down into mid forearm. Will try tramadol 50mg one tab every 12 hrs as needed for pain. Advised not to take while operating machinery. X-ray R upper arm from [place] was normal Related to Right arm pain Referred to ophthalmology Relate d to Vision changes 2-3 week hx of worse mely R forearm pain. Denies injury. States pain is 9/10, stabbing in nature; denies numbness/tingling. Good sensation and circulation in R upper ext. 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 Seen at [place] ER, X-ray, normal. States ibuprofen given at ER did not help.Advised to use heating pad, exercise upper arm as tolerated. Given flexeril to use 1 tab at night, may use once during the day. Follow-up in 2 weeks. Consider physical therapy if no improvement. Related to Right arm pain Lifestyle education regarding di et Assessments Type Assessment Date assessment Essential hypertension 16 assessment Hypertriglyceridemia impression Here today to f/u wi th HTN and review labs from November. BP is within normal limits. Pt is asymptomatic impression Elevated triglycerides and TGL/H DL ratio Mental Status Date Cognitive Assessment Orientation - [place] ed to time, place, person, situation. Patient Care Teams Name Effective Dates (start - stop) Status Members No Information
--- NOTE | 2025-02-18 09:22 | MHC.OFFVIS ---
Vital Signs 02/18/25 09:23 Height 5 ft 9 in Weight 162 lb 0.636 oz BMI 23.9 BP 124/68 Blood Pressure Location Lt brachial Position Sitting Pulse 70 Pulse Source Pulse Oximeter Pulse Oximetry (%) 100 Oxygen Delivery Method Room Air Intake Visit Reasons: Pulmonary Nodule Classics Professor Required: No Allergies No Known Allergies Allergy (Verified 02/18/25 09:25) HPI Comments Details: The patient is a 64-year-old gentleman, , with a history of [place] cirrhosis and pulmonary nodule. Apparently was evaluated within the [place] system for a left-sided pulmonary nodule. He did undergo surgery 04/30/2023 where it was resected. The details of the surgery are not available. The pathology was consistent with adenocarcinoma. The surgery was with curative intent. Afterwards the patient continued having issues with liver failure due to his liver cirrhosis. He did finally undergo in liver transplantation about 5 months ago. Surgery well. Although postoperatively patient did have significant bleeding. He was briefly admitted to the [facility] beginning of January was found to be significantly anemic. Was transferred to his transplant hospital. His anemia was worked up. Currently his stable. His shortness breath has improved dramatically after his anemia was treated. During the office visit we did go for brief walking oximetry and the pulse ox is actually 100% throughout the ambulation. He was not having any significant dyspnea symptoms. Although the patient did have an elevated heart rate about 115 with minimal activity. We walked him on 300 ft. As far as respiratory exam the patient does not have any evidence of wheezing. He does not use any inhalers at this time which is good. The patient will continue to be monitor closely by his transplant team and also with the [place] system. He did undergo a repeat CT scan of the chest at [place] I believe sometime in the last 2 weeks. Will request a CT scan at this time. Through the [place] system he will have serial CT scans based on the protocol after lung cancer diagnosis. Therefore, will hold off on any additional imaging at [place] at this time. He did have a CT scan of the chest from 04/30/2023 that we personally reviewed this was before surgery demonstrating the pulmonary nodule. The patient also had cystic lung disease and some emphysema. 07/20/2024 the patient is here for pulmonary follow-up visit. Overall he is doing okay. Still getting transfusions regularly and also on EPO for his significant anemia. Seems like his shortness of breath as anemia. He did undergo pulmonary function studies and we did personally review them. No obstructive nor restrictive ventilatory defects. However, he has a moderate diffusion impairment secondary to the decreased oxygen uptake due to his anemia. He is going to have a bone marrow biopsy done soon. This will be done at [facility]. He is also being monitor closely at the [place] because of his transplant. Otherwise the patient is we either complaints. Will plan to follow-up sometime in 8 months if he has any issues prior to that he will call for an earlier assessment. 02/18/2025 the patient is here for pulmonary follow-up visit. Overall he is doing okay. Breathing is well. He does get transfusions as needed for his significant anemia. 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 Therefore he is going to undergo a surgical correction for this issue. He is going to be having that in the coming weeks. After that he states that he is going to start a new treatment for his significant anemia. From a respiratory status is doing otherwise okay. He did have a CT scan of the chest back in September 2024 at the [place]. Postoperative changes are stable and does have some emphysema but no new concerning findings. He will continue to have imaging studies via the [place] at this time. At least from a pulmonary standpoint he is doing well therefore will go ahead and follow-up in a year's time unless he has any other issues he can always call for an earlier assessment. [facility] Medical History Dyspnea Lung cancer History of alcohol abuse Liver cancer Smoker Cardiac murmur Aortic stenosis Hypertension Chronic hepatitis C Alcoholic cirrhosis Surgical History History of appendectomy H/O colonoscopy History of ablation of neoplasm of liver Social History Household Members: Spouse Housing: Apartment Do you presently have visiting nurse or other home services: No Alcohol intake: former Patient Tobacco Use Status: Former Tobacco user Tobacco use type: Cigarette Cigarettes Per Day: 6 Years Smoked: 20 years service: Yes Review of Systems Const Denies fatigue, Denies fever(s), Denies night sweats, Denies poor appetite and Denies weight loss ENT Reports no additional complaints Card Reports palpitations and Reports dyspnea on exertion Resp Reports dyspnea on exertion and Denies wheezing GI Reports as per HPI Musc Reports no additional complaints Skin/Breast Denies pruritus, Denies lesions, Denies rash and Denies jaundice Neuro Denies Abnormal speech present Endo Denies fatigue and Reports palpitations Alphonso/Lymph Denies lymphadenopathy Aller/Immun Denies wheezing Physical Exam Vital Signs: Last Vital Signs Pulse 70 02/18/25 09:23 BP 124/68 02/18/25 09:23 Pulse Ox 100 02/18/25 09:23 Oxygen Delivery Method Room Air 02/18/25 09:23 BMI result Body Mass Index 23.9 Const General: comfortable HEENT Head: Yes normocephalic Neck Neck: Yes supple Chest Chest palpation & inspection: normal inspection of the chest Resp Effort & Inspection: normal respiratory effort Auscultation: clear to auscultation bilaterally Cardio Heart sounds: S1 normal heart sound present and S2 normal heart sound present GI Palpation (GI): Soft to palpation Skin General skin exam: no rashes or lesions noted Neuro Speech: No Abnormal speech present Extrem General: Yes no clubbing, cyanosis or edema Assessment & Plan Assessment & Plan (1) Lung cancer: Code(s): C34.90 - Malignant neoplasm of unspecified part of unspecified bronchus or lung Category: Medical Qualifiers: Laterality: right Lung location: unspecified part of lung Qualified Code(s): C34.91 - Malignant neoplasm of unspecified part of right bronchus or lung (2) Liver transplant status: Code(s): Z94.4 - Liver transplant status Category: Surgical (3) Anemia: Code(s): D64.9 - Anemia, unspecified Category: Medical Qualifiers: Anemia type: unspecified type Qualified Code(s): D64.9 - Anemia, unspecified (4) Dyspnea: Code(s): R06.00 - Dyspnea, unspecified Category: Medical Qualifiers: Dyspnea type: dyspnea on exertion Qualified Code(s): R06.09 - Other forms of dyspnea Plan Serial CT chest, [facility] Serial Blood transfusions to keep Hb >7 F/U 12 months Coding Level of Care Code Est Pt Level 4 (01626) Complex EM visit Add On G2211 Diagnoses Malignant neoplasm of right lung, unspecified part of lung C34.91 Laterality: right Lung location: unspecified part of lung Liver transplant status Z94.4 Anemia, unspecified type D64.9 Anemia type: unspecified type Dyspnea on exertion R06.09 Dyspnea type: dyspnea on exertion Time Spent (min) 16
[2025-02-18 09:23] VITALS: BP 124/68; PULSE 70; O2SAT 100; BMI 23.9
--- OUTSIDE RECORDS SUMMARY | 2025-02-18 09:53 | XMS_ITS | Encounter Summary ---
Author Organization [facility] Address [address] [address] Phone Care Team Providers Care Ferryboat Pilot Name Role Phone Maxine Victoria MD Primary Care Provider [phone] Encounter Details Date Type Department Care Team (Late st Contact Info) Description 06/16/2024 Office Communication [facility] [address] [phone] Iftikhar Arceo MD [address] [phone] Social History Tobacco Use Types [...] Care Team (Late st Contact Info) Description 05/06/2025 11:30 AM EST Office Visit [facility] [address] [phone] Iftikhar Arceo MD [address] [phone] documented as of this encounter Visit Diagnoses Not on filedocumented in this encounter Care Teams Ferryboat Pilot Relationship Specialty Start Date End Date Maxine Victoria MD [address] [place], [place] PCP - General Internal Medicine 07/21/24 documented as of this encounter
--- OUTSIDE RECORDS SUMMARY | 2025-02-18 09:53 | XMS_ITS | Clinical Summary ---
Author Organization [facility] Address [address] [place] [address] Care Team Providers Care Digital Manager Name Role Phone Unavailable Primary Care Provider Unavailabl e Surgical History Surgery Date Site/Laterality Comments OTHER SURGICAL HISTORY 02/22/2021 N/A PROCEDURE: [place] LAPAROSCOPIC APPENDECTOMY; COMMENT: April Allred Social History [...] 2011 Zoster Vaccines (1 of 2) 2011 Depression Screening 05/12/2024 COVID-19 Vaccine (1 - 2023-2 5 season) 2025 Influenza Vaccine (#1) 2025 RSV Immunization Adult Patie nts (1 - 1-dose 75+ series) 2036 HIB [...] age to complete this topic Meningococcal B Vaccine Aged Out No l onger eligible based on patient's age to complete this topic RSV Immunization Patients Un farida 20 months Aged Out No longer eligible b ased on patient's age to complete this topic Varicella Vaccines Aged Out No longer eligible based on patient's age to complete this topic
--- OUTSIDE RECORDS SUMMARY | 2025-02-18 09:53 | XMS_ITS | Clinical Summary ---
Author Organization [facility] Address [address] [facility] [address] [place] [address] Phone Care Team Providers Care Children'S Attendant Name Role Phone Maxine Victoria MD Primary Care Provider [phone] Allergies No known active allergies Medications darbepoetin penelope 300 MCG/0.6ML solution prefilled syringe Inject 300 mcg under the skin 5 Active Magnesium Oxide -Mg Supplement 400 MG capsule Take 400 mg by mouth 4 Active pantoprazole (PROTONIX) 40 MG EC tablet Take 40 mg by mouth 1 (one) time each day before breakfast 4 Active Tacrolimus ER 1 MG capsule sustained-release 24 hr Take 4 capsules by mouth in the morning and 4 capsules in the evening. 5 Active ursodiol (ACTIGALL) 300 MG capsule Take 300 mg by mouth in the morning and 300 mg at noon and 300 mg in the evening. 4 Active Sodium Zirconium Cyclosilicate 10 g packIndications:S tage 3a chronic kidney disease (HCC),Hyperkalemi a Take 1 packet by mouth 1 (one) time each day 30 each 5 5 026 Active Urea 15 GM/SCOOP powder Take 15 g by mouth 1 (one) time each day 025 Discontin ued(Med List Maintenan ce) Active Problems Problem Noted Date Diagnosed Date Hyperkalemia 01/20/2025 Acute nontraumatic kidney injury, not otherwise specified 07/21/2024 Hypo-osmolality and hyponatremia 07/21/2024 Anemia, not otherwise specified 07/21/2024 Stage 3a chronic kidney disease 07/21/2024 Encounters Date Type Department Care Team Description 01/20/2025 9:45 AM EDT Office Visit [facility] [address] [phone] Gena Robison ARNP Stage 3a chronic kidney disease (HCC) (Primary Dx); Anemia, not otherwise specified; Hypo-osmolality and hyponatremia; Hyperkalemia 11/18/2024 Office Communication [facility] [address] [phone] Gena Robison ARNP 11/18/2024 Orders Only [facility] [address] [phone] Gena Robison ARNP Stage 3a chronic kidney disease (HCC) (Primary Dx); Hypo-osmolality and hyponatremia; Hyperkalemia from Last 3 Months Family History Medical History Relation Comments Hypertension Mother Relation Status Comments Mother Social History Tobacco Use Types Packs/Day Years Used Date Smoking Tobacco: Former Cigarettes Tobacco Cessation:Counseling Given: Not Answered Alcohol Use Standard Drinks/Week Comments Not Currently 0 (1 standard drink = 0.6 oz pur e alcohol) Sex and Gender Information Value Date Recorded Sex Assigned at Not on file Legal Sex Male 10:41 AM EST Gender Identity Not on file Sexual Orientation Not on file Last Filed Vital Signs Vital Sign Reading Time Taken Comments Blood Pressure 120/70 01/20/2025 10:31 AM EDT Pulse 88 01/20/2025 10:00 AM EDT Temperature - - Respiratory Rate - - Oxygen Saturation 98% 01/20/2025 10: 00 AM EDT Inhaled Oxygen Concentration - - Weight 72.5 kg (159 lb 12.8 oz) 025 10:00 AM EDT Height - - Body Mass Index - - Plan of Treatment Upcoming Encounters Date Type Department Care Team (Late st Contact Info) Description 05/06/2025 11:30 AM EST Office Visit [facility] [address] [place] [phone] Iftikhar Arceo MD [address] [phone] Health Maintenance Due Date Last Done Comments Colorectal Cancer Screening: Annual FOBT 2010 Colorectal Cancer Screening: Colonoscopy 2010 Colorectal Cancer Screening: Sigmoidoscopy 2010 Pneumococcal Vaccine: 50+ Ye ars (2 of 2 - PCV) 03/21/2018 03/21/2017, 12/31/2011 Influenza Vaccine (#1) 2025 , 03/27/2023, 02/09/2023, Additional history exists Pneumococcal Vaccine: Peds ( 0 to 5 Years) and At-Risk Patients (6 to 49 Years) Discontinued 03/21/2017, 12/31/2011 Hepatitis B Vaccine Completed 01/06/2023, 04/29/2022, 04/01/2022, Additional history exists Insurance [facility] 1,2,3 (VACCN) Care Teams Children'S Attendant Relationship Specialty Start Date End Date Maxine Victoria MD [address] [place] [address] PCP - General Internal Medicine 07/21/24
== END 2025-02-18 10:50 | disposition home or self-care (01) ==
LOC: HO.HPS 09:20
PROVIDERS: PCP Internal Medicine; Visit Provider Hospitalist
DX: C34.91 Malignant neoplasm of unspecified part of right bronchus or lung (principal); Z94.4 Liver transplant status; D64.9 Anemia, unspecified; R06.09 Other forms of dyspnea
CPT/HCPCS: 99214; G2211

== ENCOUNTER → 2025-02-18 09:20 | Outpatient (BNVA) | payer OTHER, SELFPAY | PROVIDERS: PCP Internal Medicine; Visit Provider Hospitalist | DX: C34.91 Malignant neoplasm of unspecified part of right bronchus or lung (principal); R06.09 Other forms of dyspnea; D64.9 Anemia, unspecified; Z94.4 Liver transplant status | CPT/HCPCS: 99212 ==